=== PATIENT | male | born 1950 | race Caucasian/White ===

== ENCOUNTER 2016-04-30 09:48 | Day surgery (SDC) | payer MEDICARE, OTHER ==
[~2016-04-30 09:48] MED LIST: DIAZEPAM 5 MG TABLET PO PRN; OXYCODONE-ACETAMINOPHEN 5-325 MG TABLET PO PRN
[2016-04-30] MEDS ORDERED: LIDOCAINE 0.5% INJ-PF (5 MG/ML) 50 ML SDV ONE (11:00)
[2016-04-30] MEDS ORDERED: HEPARIN SOD (PORCINE) 5,000 UNIT/ML 1 ML SYRINGE ONE (11:28)
[2016-04-30] MEDS ORDERED: FENTANYL CITRATE INJ/PF 100 MCG/2 ML AMPUL ONE (11:28)
--- NOTE | 2016-04-30 13:15 | Operative Report ---
Operative Report DATE OF SURGERY: 04/30/16 PREOPERATIVE DIAGNOSIS: #1 malfunctioning arteriovenous fistula, left radial to cephalic. #2 end-stage renal disease on hemodialysis. #3 cirrhosis. POSTOPERATIVE DIAGNOSIS: #1 malfunctioning arteriovenous fistula, left radial to cephalic. #2 end-stage renal disease on hemodialysis. #3 cirrhosis. OPERATION: #1 needle access into arteriovenous fistula. #2 angioplasty. #3 angiogram and interpretation. SURGEON: MARIAELENA CAAL SERVICES REP: none ANESTHESIA: Moderate Sedation TISSUE REMOVED OR ALTERED: Not applicable. COMPLICATIONS: None ESTIMATED BLOOD LOSS: 2 mL. INTRAOPERATIVE FINDINGS: Upper well-founded left forearm radial to cephalic fistula. Somewhat soft in its cephalad portion, firm in the first 3 cm. This correlates with the angiographic finding. An area of stenosis is noted about a centimeter away from the arteriovenous anastomosis and generalized stenosis for the first 3 cm. This was addressed were successfully by angioplasty. There was modest increase in the diameter of the stenosed segment and the tight segment which is about 70% of the adjacent lumen was resolved. A waist was eliminated. In addition post angioplasty of the fistula was more appropriate. Firm suggesting that inflow was much better. PROCEDURE: PROCEDURE: After verifying the procedure and having obtained informed consent, the patient's left arm and forearm were prepared with Chlorhexidine and draped out with sterile linen. Local anesthesia infiltrated. Percutaneous access into the fistula ,[retrograde], obtained about [20 cm] from the arteriovenous anastomosis using a micro puncture needle followed by micro puncture wire and then a micro puncture catheter. This was done on ultrasound guidance using real-time access into the vein. Ultrasound was also used to size the vein. Angiogram demonstrated the aforementioned findings. Angioplasty was elected. A 0.035 Kalama wire was inserted, and over this, a 6 Japanese short introducer was placed, this was followed by a 5 angioplasty balloon . Angioplasty was now done at the distal radial artery just before the anastomosis and over the anastomotic and perianastomotic segment. This was done very carefully and up to 8 juliana sustained for 2 minutes. Angiogram demonstrated successful outcome. Completion angiogram demonstrated [satisfactory result]. The instrumentation was now withdrawn over pressure for 10 minutes. Dressings applied, procedure concluded. Exposure time: 0.3 minutes Radiation: 1 carol per centimeter squared Contrast: 25 mL of Isovue-M 300 low osmolality. DICTATING PHYSICIAN: MARIAELENA BRADEN M.D. cc: MARIAELENA BRADEN M.D. ([id number]) >>
--- NOTE | 2016-04-30 13:19 | PDOC H&P ---
General Chief Complaint: The patient is admitted for evaluation and angiogram of the arteriovenous fistula of the left forearm. Dialysis is noted decreased flow rate suggesting inflow stenosis. Angiogram and possible intervention is recommended. - Diagnosis (1) Hemodialysis AV fistula stenosis Is this a Current Diagnosis?: Yes (2) ESRD on hemodialysis Is this a Current Diagnosis?: Yes (3) Cirrhosis, alcoholic Is this a Current Diagnosis?: Yes (4) Hypertension Is this a Current Diagnosis?: Yes - Current Medications/Allergies Home Medications: Clonidine HCl [Catapres 0.2 mg Tablet] 0.2 mg PO BID 04/12/15 Megestrol Acetate [Megace] 400 mg PO DAILY 04/13/15 Bumetanide [Bumex 2 mg Tablet] 1 tab PO BID 06/12/15 Colchicine [Colchicine 0.6 mg Tablet] 0.2 mg PO PRN PRN 07/05/15 Ergocalciferol (Vitamin D2) [Vitamin D2] 1.25 mg PO ASDIR PRN 07/05/15 Linaclotide [Linzess] 290 mcg PO PRN PRN 07/05/15 Hydralazine HCl [Apresoline 50 mg Tablet] 50 mg PO QID 08/23/15 Isosorbide Mononitrate [Imdur 30 mg Tablet.er] 30 mg PO DAILY 08/23/15 Folic Acid/Vitamin B Comp W-C [Ina-Anthony Tablet] 1 tab PO DAILY 12/19/15 Hydromorphone HCl [Dilaudid] 4 mg PO PRN PRN 12/19/15 Naloxegol Oxalate [Movantik 25 mg Tablet] 25 mg PO DAILY 12/19/15 Allergies/Adverse Reactions: No Known Allergies Allergy (Verified 08/23/15 09:43) Past Medical History Cardiac Medical History: Reports: Coronary Artery Disease, Hyperlipidema, Hypertension - on meds Denies: Myocardial Infarction Pulmonary Medical History: Denies: Asthma, Bronchitis, Chronic Obstructive Pulmonary Disease (COPD), Pneumonia Neurological Medical History: Denies: Seizures Renal/ Medical History: Reports: End Stage Renal Disease Musculoskeltal Medical History: Reports: Arthritis - gout Psychiatric Medical History: Denies: Depression Hematology: Reports: Anemia Past Surgical History Past Surgical History: Reports: Appendectomy, Cholecystectomy, Orthopedic Surgery - B elbow, R wrist, Vascular Surgery - Perm catheter for dialysis Family History Family History: Reviewed & Not Pertinent Parental Family History Reviewed: No Children Family History Reviewed: No Sibling(s) Family History Reviewed.: No Social History Smoking Status: Current Every Day Smoker Frequency of Alcohol Use: None Hx Recreational Drug Use: No Drugs: None Hx Prescription Drug Abuse: No Physical Exam Vital Signs: Temp Pulse Resp BP Pulse Ox 99.2 F 88 16 147/69 H 96 04/30/16 10:40 04/30/16 10:40 04/30/16 10:40 04/30/16 10:40 04/30/16 10:40 Intake & Output 04/29/16 04/30/16 05/01/16 06:59 06:59 06:59 Weight 62 kg Additional comments: Constitutional: A well-developed well-nourished gentleman, thin built. No acute distress. Eyes: Mucous membranes pink and moist, sclerae anicteric, pupils react normally. Respiratory: No shortness of breath or wheezing. Breath sounds are normal and equal. Cardiac: Heart sounds normal, no murmurs, no increased JVP. Peripheral edema. Extremities: Upper extremities shows normal range of movement and pulses. The left forearm has cephalic to radial fistula which is relatively soft. Bruit normal. Soft to palpation. Psychiatric: judgment, memory, insight seem normal. Mood is normal, appropriate and pleasant. Impression/Plan Impression: #1 malfunctioning AV fistula left cephalic to radial. #2 end-stage renal disease on hemodialysis. #3 cirrhosis. #4 hypertension. Plan: The plan is to admit the patient for angiogram and possible angioplasty. The risks, benefits, expected outcome and alternatives F Palencia the patient and he wishes to proceed.
--- NOTE | 2016-04-30 13:22 | PDOC DISCHARGE SUMMARY ---
Discharge Summary (SDC) - Discharge Final Diagnosis: #1 malfunctioning AV fistula left cephalic to radial. #2 end-stage renal disease on hemodialysis. #3 cirrhosis. #4 hypertension. Date of Surgery: 04/30/16 Discharge Date: 04/30/16 Condition: Fair Treatment or Instructions: #1 discharge patient home after achieving ASU criteria. #2 continue medications per medication reconciliation sheet. #3 follow-up in office by appointment in about 1 month's call for appointment. #4 dressing to be left on of the removed and hemodialysis.. #5 continue scheduled hemodialysis. #6 may shower starting in 48 hours. Important to keep dressings clean and dry Respiratory Treatments at Home: Deep Breathing/Coughing Discharge Activity: Activity As Tolerated Home Care Assistance: None Needed Report the Following to Your Physician Immediately: Shortness of Breath, Nausea , Vomiting, Increase in Pain, Fever over 101 Degrees, Unusual Bleeding, Redness , Swelling, Warmth
[2016-04-30 14:27] VITALS: BP 123/69
== END 2016-04-30 13:15 | disposition home or self-care (01) ==
LOC: CCL 09:48
PROVIDERS: ATTEND Surgery
PROC: 057F3DZ Dilation of Left Cephalic Vein with Intraluminal Device, Percutaneous Approach (ICD-10-PCS; principal; 2016-04-30)
DX: T82.858A Stenosis of other vascular prosthetic devices, implants and grafts, initial encounter (principal); Y83.2 Surgical operation with anastomosis, bypass or graft as the cause of abnormal reaction of the patient, or of later complication, without mention of misadventure at the time of the procedure; I12.0 Hypertensive chronic kidney disease with stage 5 chronic kidney disease or end stage renal disease; N18.6 End stage renal disease; Z99.2 Dependence on renal dialysis; I25.10 Atherosclerotic heart disease of native coronary artery without angina pectoris; E78.5 Hyperlipidemia, unspecified; F17.210 Nicotine dependence, cigarettes, uncomplicated; K70.30 Alcoholic cirrhosis of liver without ascites; R00.1 Bradycardia, unspecified; I50.9 Heart failure, unspecified; Z79.899 Other long term (current) drug therapy
CPT/HCPCS: 36902; 36901; C1752; C1725; Q9967; C1769; J1644 ×2; A9270 ×2; J3010; J3490

== ENCOUNTER 2016-05-23 08:29 | Day surgery (SDC) | payer MEDICARE, OTHER ==
[~2016-05-23 08:29] MED LIST changes: +CEFAZOLIN 1 GM/D5W RTU 1 GM/50 ML RTUPB IV PRN; +CEFAZOLIN SODIUM 1 GM in DEXTROSE 5%-WATER 50 ML IV PRN
[2016-05-23 09:29] LABS: HEMATOCRIT 29.3 % (37.9-51.0); HEMOGLOBIN 9.8 g/dL (13.5-17.0); HGB HCT DIFFERENCE 0.1; MEAN CORPUSCULAR HEMOGLOBIN 28.2 pg (27.0-33.4); MEAN CORPUSCULAR HGB CONC 33.5 g/dL (32.0-36.0); MEAN CORPUSCULAR VOLUME 84 fl (80-97); RED BLOOD COUNT 3.47 10^6/uL (4.35-5.55); RED CELL DISTRIBUTION WIDTH 16.6 % (11.5-14.0); WHITE BLOOD COUNT 8.3 10^3/uL (4.0-10.5)
[2016-05-23 09:49] LABS: ANION GAP 12 (5-19); BLOOD UREA NITROGEN 31 mg/dL (7-20); CALCIUM 8.4 mg/dL (8.4-10.2); CARBON DIOXIDE 18 mmol/L (22-30); CHLORIDE 102 mmol/L (98-107); CREATININE RESULT 6.75 mg/dL (0.52-1.25); GLUCOSE 125 mg/dL (75-110); SODIUM 131.5 mmol/L (137-145)
[2016-05-23] MEDS ORDERED: LIDOCAINE 0.5% INJ-PF (5 MG/ML) 50 ML SDV ONE ×2 (10:22→12:36)
[2016-05-23] MEDS ORDERED: HEPARIN SODIUM,PORCINE/NS/PF 2,000 UNIT/1,000 ML RTUINJ IV ONE (10:22)
[2016-05-23] MEDS ORDERED: FENTANYL CITRATE INJ/PF 100 MCG/2 ML AMPUL ONE (10:31)
[2016-05-23] MEDS ORDERED: MIDAZOLAM 2 MG/2 ML INJ ONE (10:31)
[2016-05-23] MEDS ORDERED: CEFAZOLIN INJ 1 GM VIAL ONE (10:32)
[2016-05-23] MEDS ORDERED: BACITRACIN INJ 50,000 UNIT VIAL IR PRN (10:41)
[2016-05-23] MEDS ORDERED: HEPARIN SOD (PORCINE) 5,000 UNIT/ML 1 ML SYRINGE ONE (11:51)
--- NOTE | 2016-05-23 13:51 | PDOC DISCHARGE SUMMARY ---
Discharge Summary (SDC) - Discharge Final Diagnosis: #1 clotted arteriovenous fistula left radiocephalic. #2 end-stage renal disease on hemodialysis. #3 cirrhosis. #4 bradycardia. Date of Surgery: 05/23/16 Discharge Date: 05/23/16 Condition: Poor Treatment or Instructions: #1 discharge patient after achieving ASU criteria. #2 the patient is to continue his normal medication. No Dilaudid at present until the Percocet is used up. #3 dressings to be left in place until hemodialysis. #4 follow-up in office by appointment in about 1 week. Discharge Diet: As Tolerated Respiratory Treatments at Home: Deep Breathing/Coughing Report the Following to Your Physician Immediately: Unusual Bleeding
[2016-05-23] MEDS ORDERED: OXYCODONE-ACETAMINOPHEN 5-325 MG TABLET ONE (13:54)
--- NOTE | 2016-05-23 14:18 | Operative Report ---
Operative Report DATE OF SURGERY: 05/23/16 PREOPERATIVE DIAGNOSIS: #1 clotted arteriovenous fistula left radiocephalic. # 2 end-stage renal disease on hemodialysis. #3 cirrhosis. #4 bradycardia. POSTOPERATIVE DIAGNOSIS: #1 clotted arteriovenous fistula left radiocephalic.Post thrombectomy. #2 end-stage renal disease on hemodialysis. # 3 cirrhosis. #4 bradycardia. OPERATION: #1 ultrasound-guided needle access into the left forearm AV fistula. #2 second ultrasound-guided access into the arteriovenous fistula of left forearm. #3 digit thrombectomy. #4 angioplasty. #5 angiogram and interpretation. #6 ultrasound evaluation and real-time access in the right internal jugular vein. #7 insertion of permacatheter via real-time access in the right internal jugular vein. SURGEON: MARIAELENA CAAL MATERIAL HANDLER FLOORPERSON: none ANESTHESIA: Moderate Sedation TISSUE REMOVED OR ALTERED: Thrombus COMPLICATIONS: Equivocal success of fistula thrombectomy. ESTIMATED BLOOD LOSS: 10 mL. INTRAOPERATIVE FINDINGS: Of an initially clotted left forearm arteriovenous fistula. Thrombectomy was successful in restoring flow however the flow was somewhat sluggish particularly above the elbow. Diligent attempts at thrombectomy and of angioplasty improved the fistula as much as possible but they for inflow is just not been sitting for prolonged function. A right-sided perm catheter was inserted into the right internal jugular vein. Good position and function with easy egress of blood and ingress of heparinized solution. Contrast study showed some smooth flow of contrast through the right atrium, ventricle and pulmonary outflow tract. PROCEDURE: PROCEDURE: After verifying the procedure and having obtained informed consent, the patient's left arm was prepared with Chlorhexidine and draped out with sterile linen. Local anesthesia infiltrated. Percutaneous access into the fistula ,[ antegrade], obtained about [2 cm] from the arteriovenous anastomosis using a micro puncture needle followed by micro puncture wire and then a micro puncture catheter. A 0.035 Benkelman wire was inserted, and over this, a 6 Sinhala short introducer was placed. The Glidewire was gently manipulated cephalad and a second needle stick, retrograde was done from above the elbow down once. This was done on ultrasound guidance. An AngioJet catheter was now inserted in a antegrade fashion and thrombectomy conducted from the elbow down to the introducer. Completion angiograms showed a stenosis at about 15 cm. This was about 70% of the adjacent lumen and a half centimeter. This was followed by a [6-mm] angioplasty balloon . Angioplasty was serially done from the upper fistula down to the introducer. Inflating up to 10 atmospheres for a minute at a time.]. Completion angiogram demonstrated [satisfactory result]. The retrograde wire was now used to place Chele's second 6 Sinhala introducer which allowed introduction of a #4 embolectomy catheter. This was introduced gently into the radial artery and gently inflated and withdrawn. In this way and the thrombus was withdrawn into the fistula. This was greeted with a good pulse in the proximal 6 cm of the fistula. A 6 mm angioplasty balloon was now inserted and used to dilate the segment of fistula which had antegrade access. The system was not interrogated and a pulses noted throughout. Completion angiogram demonstrated contrast flow through the system although sluggish. Angioplasty was once again done in a retrograde fashion and the system reanalyze. It was slightly improved. The result was accepted. The instrumentation was now withdrawn over pressure for its.. Dressings applied, procedure concluded. Next a perm catheter was inserted. First the right and left internal jugular veins were evaluated on ultrasound. The right was selected. The skin was prepared with chlorhexidine and draped out with sterile linen. After the "" universal timeout, and it was verified that the patient did receive IV antibiotic the procedure commenced. A micropuncture needle was used to access the right internal jugular vein under real-time ultrasound guidance. This was followed by introduction of the micropuncture wire, micropuncture catheter which allowed insertion of a 0.035 guidewire with the tip placed in the upper inferior vena cava. A 23 cm permacatheter was now placed over the chest and an exit site ascertained. It was locally anesthetized as was the subcutaneous tissues to in the 2 incisions. This allowed placement of the catheter. Medially the catheter was now inserted using a peel-away sheath which had been placed over the guidewire. An angiogram was done which verify the position of the tip of the catheter in the right atrium. The findings as dictated. The neck incision was closed with 3-0 PDS to the subcutaneous tissues. 3-0 PDS was also used to anchor the catheter at the external site. A bio patch was applied to the site. Dressings applied and the procedure concluded. Exposure time:3.3 Radiation: 7 carol per centimeters squared Contrast: 30 mL of Isovue-M 300, low osmolality. DICTATING PHYSICIAN: MARIAELENA BRADEN M.D. cc: MARIAELENA BRADEN M.D. ([id number]) >>
[2016-05-23 14:48] VITALS: BP 141/75
== END 2016-05-23 14:40 | disposition home or self-care (01) ==
LOC: CCL 08:29
PROVIDERS: ATTEND Surgery
PROC: 05HM33Z Insertion of Infusion Device into Right Internal Jugular Vein, Percutaneous Approach (ICD-10-PCS; principal; 2016-05-23)
DX: T82.858A Stenosis of other vascular prosthetic devices, implants and grafts, initial encounter (principal); I12.0 Hypertensive chronic kidney disease with stage 5 chronic kidney disease or end stage renal disease; E10.22 Type 1 diabetes mellitus with diabetic chronic kidney disease; Y83.2 Surgical operation with anastomosis, bypass or graft as the cause of abnormal reaction of the patient, or of later complication, without mention of misadventure at the time of the procedure; N18.6 End stage renal disease; Z99.2 Dependence on renal dialysis; K74.60 Unspecified cirrhosis of liver; R00.1 Bradycardia, unspecified; D64.9 Anemia, unspecified; I50.9 Heart failure, unspecified; F17.210 Nicotine dependence, cigarettes, uncomplicated; Z79.899 Other long term (current) drug therapy
CPT/HCPCS: 36415; 85027; 80048; 36558; 76937; 77001; C1752 ×2; Q9967; J3490 ×2; J1644 ×2; J0690; A9270 ×2; J3010; J2250

== ENCOUNTER 2016-07-02 05:51 | Day surgery (SDC) | payer MEDICARE, OTHER ==
[2016-06-13 12:48] LABS: HEMATOCRIT 36.7 % (37.9-51.0); HGB HCT DIFFERENCE -0.7; MEAN CORPUSCULAR HEMOGLOBIN 27.8 pg (27.0-33.4); MEAN CORPUSCULAR HGB CONC 32.8 g/dL (32.0-36.0); MEAN CORPUSCULAR VOLUME 85 fl (80-97); RED BLOOD COUNT 4.34 10^6/uL (4.35-5.55); WHITE BLOOD COUNT 9.1 10^3/uL (4.0-10.5)
[2016-06-13 13:09] LABS: ANION GAP 14 (5-19); BLOOD UREA NITROGEN 10 mg/dL (7-20); CALCIUM 9.4 mg/dL (8.4-10.2); CARBON DIOXIDE 22 mmol/L (22-30); CHLORIDE 101 mmol/L (98-107); CREATININE RESULT 3.76 mg/dL (0.52-1.25); GLUCOSE 104 mg/dL (75-110); POTASSIUM 4.2 mmol/L (3.6-5.0); SODIUM 137.1 mmol/L (137-145)
--- NOTE | 2016-06-14 05:33 | EKG REPORT ---
SEVERITY:- ABNORMAL ECG - SINUS RHYTHM MULTIPLE VENTRICULAR PREMATURE COMPLEXES LOW VOLTAGE IN FRONTAL LEADS : Confirmed by: Sruthi Stovall MD 14-Jun-2016 05:32:17
[~2016-07-02 05:51] MED LIST changes: -CEFAZOLIN SODIUM 1 GM in DEXTROSE 5%-WATER 50 ML IV PRN; -DIAZEPAM 5 MG TABLET PO PRN; +LIDOCAINE 0.5% INJ-PF (5 MG/ML) 50 ML SDV SUBCUT PRN; +NORMAL SALINE 1000 ML (RENAL PATIENTS) IV PRN; -OXYCODONE-ACETAMINOPHEN 5-325 MG TABLET PO PRN
[2016-07-02] MEDS ORDERED: HEPARIN SOD (PORCINE) 1,000 UNIT/ML 10 ML VIAL ONE (06:21)
[2016-07-02] MEDS ORDERED: LIDOCAINE 0.5% INJ-PF (5 MG/ML) 50 ML SDV ONE (06:21)
[2016-07-02] MEDS ORDERED: BACITRACIN INJ 50,000 UNIT VIAL ONE (06:21)
[2016-07-02] MEDS ORDERED: BUPIVACAINE HCL 0.5 % INJ/PF 30 ML SDV ONE (06:21)
[2016-07-02] MEDS ORDERED: LIDOCAINE 1% INJ-PF (10 MG/ML) 30 ML SDV ONE (06:48)
[2016-07-02] MEDS ORDERED: FENTANYL CITRATE INJ/PF 100 MCG/2 ML AMPUL ONE (07:58)
[2016-07-02] MEDS ORDERED: KETAMINE HCL INJ 500 MG/10 ML VIAL ONE (07:58)
[2016-07-02] MEDS ORDERED: PROPOFOL INJ 200 MG/20 ML VIAL IV ONE (07:59)
[2016-07-02] MEDS ORDERED: MIDAZOLAM 2 MG/2 ML INJ ONE (07:59)
[2016-07-02] MEDS ORDERED: DEXMEDETOMIDINE INJ 80 MCG/20 ML VIAL IV ONE (07:59)
[2016-07-02] MEDS ORDERED: FENTANYL CITRATE INJ/PF 100 MCG/2 ML AMPUL IV PRN ×3 (09:06)
[2016-07-02] MEDS ORDERED: OXYCODONE-ACETAMINOPHEN 5-325 MG TABLET PO PRN ×2 (09:06)
[2016-07-02] MEDS ORDERED: PROMETHAZINE HCL INJ 25 MG/1 ML VIAL IV PRN ×2 (09:06)
[2016-07-02] MEDS ORDERED: MORPHINE SULFATE 10 MG/ML INJ IV PRN (09:06)
[2016-07-02] MEDS ORDERED: MEPERIDINE HCL/PF INJ 25 MG/1 ML DISP.SYRIN IV PRN (09:06)
[2016-07-02] MEDS ORDERED: DIPHENHYDRAMINE HCL 50 MG/ML VIAL IV PRN (09:06)
--- NOTE | 2016-07-02 09:43 | PDOC DISCHARGE SUMMARY ---
Discharge Summary (SDC) - Discharge Final Diagnosis: #1 end-stage renal disease on hemodialysis. #[address] #3 cirrhosis of the liver. #4 hypertension. Date of Surgery: 07/02/16 Discharge Date: 07/02/16 Condition: Fair Treatment or Instructions: #1 activities within moderation encouraged. #2 follow up in my office by appointment in about 1 week. Call for appointment. #3 the wounds covered clean and dry until office visit. #4 hold off on school/work until evaluation in office. #5 may shower in 48 hours, keep operated area as dry as possible. #6 discharge from ambulatory when ASU criteria met. #7 medications per medication reconciliation sheet. #8 Percocet by prescription.. Prescriptions: Oxycodone HCl/Acetaminophen [Percocet 5-325 mg Tablet] 1 tab PO ASDIR PRN #10 tablet PRN Reason: Discharge Diet: Other (Comments) - Renal Respiratory Treatments at Home: Deep Breathing/Coughing Discharge Activity: Activity As Tolerated Report the Following to Your Physician Immediately: Shortness of Breath, Unusual Bleeding
--- NOTE | 2016-07-02 09:48 | Operative Report ---
Operative Report DATE OF SURGERY: 07/02/16 PREOPERATIVE DIAGNOSIS: #1 end-stage renal disease on hemodialysis. #[address] #3 cirrhosis of the liver. #4 hypertension. POSTOPERATIVE DIAGNOSIS: #1 end-stage renal disease on hemodialysis. #[address] #3 cirrhosis of the liver. #4 hypertension. OPERATION: Insertion of first stage transposed basilic fistula in the left arm. SURGEON: MARIAELENA CAAL PHYSICIAN GYNECOLOGIST: RICKY BRIONES ANESTHESIA: LMAC TISSUE REMOVED OR ALTERED: Not applicable. COMPLICATIONS: None ESTIMATED BLOOD LOSS: 5 mL. INTRAOPERATIVE FINDINGS: Of a fairly robust although slightly thick-walled basilic vein, easily accommodate the noted today 4.5 mm coronary dilator. The accompanying artery was about the same size. A nice artery to vein anastomosis was constructed constructed. Doppler signals in the proximal and distal artery as well as in the fistula. Slurred and multiphasic in the proximal artery, more multiphasic with less slurring in the distal artery and continuous in the fistula. PROCEDURE: Operative Report PROCEDURE: After reviewing the procedure with the patient, he was taken to the operating room. The patient was sedated and the [left upper extremity] prepared with chlorhexidine and draped out with sterile linen. After the "" universal timeout", in which it was verified that the patient [received IV antibiotics] the procedure commenced. The sterilely sheathed ultrasound probe was used to evaluate the left upper venous and arterial systems, pertinent to the previously done vein mapping. Local anesthesia was infiltrated and a longitudinal incision made over the lower arm near the antecubital fossa. Dissection proceeded through the subcutaneous tissues down to the brachial vessels. The basilic vein was dissected out proximally and distally for about 4 cm. Likewise major branches. The brachial artery dissected out for a distance of about 1.5 cm. Rubber loops were placed on either end. The patient was given 2500 units of heparin intravenously. Coronary dilators were accepted [up to 4.5 mm]. The artery was controlled proximally and distally with rubber loops. An arteriotomy approximately [1.5 cm] in length was made, the artery was irrigated proximally and distally with heparinized solution. The transected vein was now spatulated , it was then anastomosed end to end to side into the brachial artery. This was done using a continuous suture of 6-0 Prolene. Controls of the fistula were now released and it was analyzed using a Doppler probe. Hemostasis was secured once optimal function was assured, the wound was irrigated with antibiotic containing solution and closed. The redundant vein was now transposed into the subcutaneous tissue laterally, to facilitate second stage. Closure was done using interrupted 3-0 PDS for the subcutaneous tissues. The skin was closed using a continuous subcutaneous suture of 4-0 Monocryl which was reinforced with Steri-Strips over benzoin. The presser first provided retraction, thus facilitating the operative view. Controlled bleeding. The presser first also followed the suturing, thus facilitating accurate suture placement. Sutured skin and applied dressings. DICTATING PHYSICIAN: MARIAELENA BRADEN M.D.
[2016-07-02 12:10] VITALS: BP 120/66
[2016-07-02] MEDS ORDERED: GLYCOPYRROLATE INJ 0.4 MG/2 ML VIAL ONE (14:10)
[2016-07-02] MEDS ORDERED: LIDOCAINE 2% INJ-PF (20 MG/ML) 10 ML AMPUL ONE (14:10)
[2016-07-02] MEDS ORDERED: ONDANSETRON HCL INJ/PF 4 MG/2 ML SDV ONE (14:10)
[2016-07-02] MEDS ORDERED: METOCLOPRAMIDE HCL INJ/PF 10 MG/2 ML SDV ONE (14:10)
== END 2016-07-02 11:35 | disposition home or self-care (01) ==
LOC: OROUT 05:51
PROVIDERS: ATTEND Surgery
PROC: 05SC0ZZ Reposition Left Basilic Vein, Open Approach (ICD-10-PCS; principal; 2016-07-02 08:00)
DX: T82.858A Stenosis of other vascular prosthetic devices, implants and grafts, initial encounter (principal); Y83.2 Surgical operation with anastomosis, bypass or graft as the cause of abnormal reaction of the patient, or of later complication, without mention of misadventure at the time of the procedure; I12.0 Hypertensive chronic kidney disease with stage 5 chronic kidney disease or end stage renal disease; E10.22 Type 1 diabetes mellitus with diabetic chronic kidney disease; N18.6 End stage renal disease; Z99.2 Dependence on renal dialysis; K74.60 Unspecified cirrhosis of liver; I50.9 Heart failure, unspecified; D64.9 Anemia, unspecified; R00.1 Bradycardia, unspecified; R01.1 Cardiac murmur, unspecified; F17.210 Nicotine dependence, cigarettes, uncomplicated; Z79.899 Other long term (current) drug therapy
CPT/HCPCS: 93005; 36415 ×2; 84132; 85027; 80048; 93010; 36819; J2250; J3490 ×6; J0690; J1644; J2765; J2405; J2704; 1844; J3010

== ENCOUNTER 2016-07-28 19:05 | Observation (INO) | payer MEDICARE, OTHER ==
--- NOTE | 2016-07-28 20:02 | ER Document Report ---
ED General - General Chief Complaint: General Weakness Stated Complaint: LETHARGIC Time seen by provider: 19:50 Notes: Patient is a 66-year-old male that comes emergency department for chief complaint of tiredness, weakness, daughter at bedside states she called about 5: 30 and he seemed to be slurring his speech over the phone, she states she came evaluated him and found he can barely stay awake and alert when he stood he shuffled his feet. Patient denies any focal numbness or weakness, denies fever , denies any current chest pain and headache. Past medical history of end- stage renal disease on dialysis, had dialysis on Friday and is due on Friday, liver cirrhosis, CHF, COPD with tobacco abuse. Patient recently had a decrease in his Bumex level by cardiology Dr. Garibay, he also sees nephrology Dr. Billy. TRAVEL OUTSIDE OF THE [place] IN LAST 30 DAYS: No - Related Data Allergies/Adverse Reactions: No Known Allergies Allergy (Verified 08/23/15 09:43) Past Medical History - General Information source: Patient, Relative - Social History Smoking Status: Current Every Day Smoker Chew tobacco use (# tins/day): - 45 Frequency of alcohol use: None Drug Abuse: None Family History: Reviewed & Not Pertinent - Past Medical History Cardiac Medical History: Reports: Hx Hypercholesterolemia, Hx Hypertension - on meds Denies: Hx Coronary Artery Disease, Hx Heart Attack Pulmonary Medical History: Denies: Hx Asthma, Hx Bronchitis, Hx COPD, Hx Pneumonia Neurological Medical History: Denies: Hx Cerebrovascular Accident, Hx Seizures Renal/ Medical History: Reports: Hx End Stage Renal Disease, Hx Hemodialysis, Hx Kidney Stones Musculoskeltal Medical History: Reports Hx Arthritis - gout Psychiatric Medical History: Denies: Hx Depression Past Surgical History: Reports: Hx Appendectomy, Hx Cholecystectomy, Hx Orthopedic Surgery - B elbow, R wrist, Hx Vascular Surgery - Perm catheter for dialysis - Immunizations Immunizations up to date: No Hx Diphtheria, Pertussis, Tetanus Vaccination: Yes Hx Pneumococcal Vaccination: 12/29/14 Review of Systems - Review of Systems Constitutional: See HPI EENT: No symptoms reported Cardiovascular: No symptoms reported Respiratory: No symptoms reported Gastrointestinal: No symptoms reported Genitourinary: No symptoms reported Male Genitourinary: No symptoms reported Musculoskeletal: No symptoms reported Skin: No symptoms reported Hematologic/Lymphatic: No symptoms reported Neurological/Psychological: See HPI Physical Exam - Vital signs Vitals: Resp BP Pulse Ox 16 114/61 96 07/28/16 19:16 07/28/16 19:16 07/28/16 19:16 Interpretation: Normal - General General appearance: Lethargic - HEENT Head: Normocephalic, Atraumatic Eyes: Normal Conjunctiva: Normal Extraocular movements intact: Yes Eyelashes: Normal Pupils: PERRL Mucous membranes: Normal Pharynx: Normal Neck: Normal - Respiratory Respiratory status: No respiratory distress Chest status: Nontender Breath sounds: Normal. No: Decreased air movement, Wheezing Chest palpation: Normal - Cardiovascular Rhythm: Regular. No: Tachycardia Heart sounds: Normal auscultation, S1 appreciated, S2 appreciated Murmur: No - Abdominal Inspection: Normal Distension: No distension Bowel sounds: Normal Tenderness: Nontender. No: Tender Organomegaly: No organomegaly - Back Back: Normal, Nontender. No: Tender - Extremities General upper extremity: Normal inspection, Nontender, Normal color, Normal ROM , Normal temperature General lower extremity: Normal inspection, Nontender, Normal color, Normal ROM , Normal temperature, Normal weight bearing. No: Carie's sign - Neurological Neuro grossly intact: Yes Cognition: Normal Orientation: AAOx4 Samantha Coma Scale Eye Opening: Spontaneous Samantha Coma Scale Verbal: Oriented [place] Coma Scale Motor: Obeys Commands Samantha Coma Scale Total: 15 Speech: Normal Cranial nerves: Normal Cerebellar coordination: Normal Motor strength normal: LUE, RUE, LLE, RLE Additional motor exam normals: Equal professional nurse Sensory: Normal - Psychological Associated symptoms: Normal affect, Normal mood - Skin Skin Temperature: Warm Skin Moisture: Dry Skin Color: Normal Course - Re-evaluation Re-evalutation: Patient is a 66-year-old male who actually appears older than his stated age who presents for chief complaint of weakness and acting differently than usual per daughter. Patient states he can barely stay awake but he denies any complaints. Patient does appear very tired but he does cooperate with a normal neurological exam. Patient has some minimal bilateral lower extremity edema but has no other pertinent physical exam findings or signs of distress. Vital signs unremarkable. Workup is unremarkable other than mild leukocytosis with elevation of monocytes , no evidence of bacterial infection, chest x-ray clear, urinalysis unremarkable , laboratory workup at baseline. Patient able to stand with assistance but is somewhat unsteady, he does continue to sleep and is drowsy. Medications include Dilaudid at home. Family members concerned about patient living by himself and going home while being drowsy and unsteady on his feet. Discussed with Dr. Painter, she does not recommend that Dr. sen will be able to admit the patient because patient has no criteria for admission to the hospital. I discussed with family members, agreement was made that patient will be monitored and reassessed in the emergency department tonight, in the morning he will be reassessed for potential admission to the hospital versus transport to his dialysis this morning. Patient's morning medications ordered, food ordered. Patient reassessed, still remains drowsy but has no complaints. 07/29/16 07:15 Patient is more alert now, he is more conversational, he states that he actually feels pretty good. I asked patient to perform getting up, standing, walking, and getting back to bed by herself. Patient was able to perform this, he walked over to a urinal, urinated. Standing, walked back to the bed. Vital signs remain unremarkable. Consulted Dr. Painter again, patient still does not meet admission criteria. client manager large law consult will be placed. Recommended reduce Dilaudid use until he is back to normal. Patient will be transported to dialysis which he is due for at 11 at [facility]. 07/29/16 08:[address] Saenz, family still uncomfortable with patient going home, he evaluated patient at bedside, also uncomfortable. Going home with very tired behavior, patient suddenly awoke and started stating bizarre things such as he didn't have enough urine and they are coming for him. Recommends admission for acute metabolic encephalopathy and unsteady gait. - Vital Signs Vital signs: Temp Pulse Resp BP Pulse Ox 98.9 F 68 12 122/93 H 99 07/29/16 06:15 07/29/16 06:15 07/29/16 06:15 07/29/16 06:15 07/29/16 06:15 - Laboratory Result Diagrams: 07/28/16 20:15 07/28/16 20:15 Laboratory results interpreted by me: 07/28/16 07/28/16 07/28/16 20:15 20:15 23:14 WBC 11.5 H RBC 3.32 L Hgb 9.5 L Hct 29.0 L RDW 15.3 H Monocytes % 16.2 H Absolute Monocytes 1.9 H BUN 26 H Creatinine 4.12 H Est GFR ( Amer) 18 L Est GFR (Non-Af Amer) 15 L Glucose 122 H Calcium 8.0 L Direct Bilirubin 0.6 H Total Protein 5.1 L Albumin 2.3 L Urine Protein 100 H Discharge - Discharge Clinical Impression: Weakness, Acute metabolic encephalopathy Condition: Stable Disposition: ADMITTED INPATIENT Unit Admitted: Telemetry
[2016-07-28 20:26] LABS: ABSOLUTE BASOPHILS # (AUTO) 0.1 10^3/uL (0.0-0.2); ABSOLUTE EOSINOPHILS # (AUTO) 0.4 10^3/uL (0.0-0.6); ABSOLUTE MONOCYTES (AUTO) 1.9 10^3/uL (0.1-1.4); ABSOLUTE NEUT (AUTO) 7.1 10^3/uL (1.7-8.2); BASOPHILS % (AUTO) 0.7 % (0-2); EOSINOPHILS % (AUTO) 3.6 % (0-6); HEMOGLOBIN 9.5 g/dL (13.5-17.0); HGB HCT DIFFERENCE -0.5; LYMPHOCYTES % (AUTO) 17.7 % (13-45); MEAN CORPUSCULAR HEMOGLOBIN 28.6 pg (27.0-33.4); MEAN CORPUSCULAR HGB CONC 32.9 g/dL (32.0-36.0); MEAN CORPUSCULAR VOLUME 87 fl (80-97); MONOCYTES % (AUTO) 16.2 % (3-13); RED BLOOD COUNT 3.32 10^6/uL (4.35-5.55); RED CELL DISTRIBUTION WIDTH 15.3 % (11.5-14.0); SEGMENTED NEUTROPHILS % (AUTO) 61.8 % (42-78); WHITE BLOOD COUNT 11.5 10^3/uL (4.0-10.5)
[2016-07-28 20:42] LABS: ALANINE AMINOTRANSFERASE 27 U/L (21-72); ALBUMIN 2.3 g/dL (3.5-5.0); ALKALINE PHOSPHATASE 75 U/L (38-126); ANION GAP 13 (5-19); ASPARTATE AMINO TRANSFERASE 29 U/L (17-59); BILIRUBIN,DIRECT 0.6 mg/dL (0.0-0.4); BILIRUBIN,TOTAL 0.7 mg/dL (0.2-1.3); BLOOD UREA NITROGEN 26 mg/dL (7-20); CARBON DIOXIDE 23 mmol/L (22-30); CHLORIDE 103 mmol/L (98-107); CREATINE KINASE 83 U/L (55-170); CREATININE RESULT 4.12 mg/dL (0.52-1.25); GLUCOSE 122 mg/dL (75-110); POTASSIUM 3.9 mmol/L (3.6-5.0); TOTAL PROTEIN 5.1 g/dL (6.3-8.2)
[2016-07-28 20:53] LABS: CREATINE KINASE MB 1.76 ng/mL (<4.55)
[2016-07-28 20:57] LABS: TROPONIN I < 0.012 ng/mL
--- NOTE | 2016-07-28 22:47 | EKG REPORT ---
SEVERITY:- BORDERLINE ECG - UNKNOWN RHYTHM, IRREGULAR RATE 51-121 LOW VOLTAGE IN FRONTAL LEADS BORDERLINE PROLONGED QT INTERVAL APCs : Confirmed by: Jory Ulloa 28-Jul-2016 22:47:03
[2016-07-28 23:47] LABS: APPEARANCE,URINE CLEAR; BILIRUBIN,URINE NEGATIVE (NEGATIVE); GLUCOSE, URINE NEGATIVE (NEGATIVE); KETONES,URINE NEGATIVE (NEGATIVE); LEUKOCYTE ESTERASE,URINE NEGATIVE (NEGATIVE); NITRITE,URINE NEGATIVE (NEGATIVE); PROTEIN,URINE 100 mg/dL (NEGATIVE); URINE SPECIFIC GRAVITY 1.008; UROBILINOGEN,URINE NEGATIVE mg/dL (<2.0)
[2016-07-29] MEDS ORDERED: FAMOTIDINE 20 MG TABLET PO ONE (07:33)
[2016-07-29] MEDS ORDERED: AMLODIPINE BESYLATE 10 MG TABLET PO ONE (07:33)
[2016-07-29] MEDS ORDERED: ASPIRIN 81 MG TABLET, CHEWABLE PO ONE (07:33)
[2016-07-29] MEDS ORDERED: HYDROMORPHONE HCL 2 MG TABLET PO PRN (12:02)
[2016-07-29] MEDS ORDERED: COLCHICINE 0.6 MG TABLET PO PRN ×2 (12:02→13:18)
[2016-07-29] MEDS ORDERED: MEGESTROL ACETATE SUSP 400 MG/10 ML UDCUP PO ONE (13:00)
[2016-07-29] MEDS ORDERED: FOLIC ACID/VITAMIN B COMP W-C CAPSULE PO ONE (13:00)
[2016-07-29] MEDS ORDERED: CLONIDINE HCL 0.2 MG TABLET PO ONE (13:00)
--- NOTE | 2016-07-29 13:51 | PDOC H&P ---
History of Present Illness Admission Date/PCP: 07/29/16 11:58 DR THORNE History of Present Illness: DANIEL MAGUIRE JR is a 66 year old male that comes emergency department for chief complaint of tiredness, weakness, daughter at bedside states she called about 5:30 and he seemed to be slurring his speech over the phone, she states she came evaluated him and found he can barely stay awake and alert when he stood he shuffled his feet. Patient denies any focal numbness or weakness, denies fever, denies any current chest pain and headache. Past medical history of end-stage renal disease on dialysis, had dialysis on Friday and is due on Friday, liver cirrhosis, CHF, COPD with tobacco abuse. Patient recently had a decrease in his Bumex level by cardiology Dr. Garibay, he also sees nephrology Dr. Thorne. Upon evaluation in the ED the patient was found somewhat lethargic arousable Alert answering questions appropriately And stating that his extremely weak He was scheduled for dialysis today Patient was admitted under hospitalist service for observation; he will undergo dialysis as scheduled Physical therapy evaluation was obtained and further monitoring Past Medical History Cardiac Medical History: Reports: Hyperlipidema, Hypertension - on meds Denies: Coronary Artery Disease, Myocardial Infarction Pulmonary Medical History: Denies: Asthma, Bronchitis, Chronic Obstructive Pulmonary Disease (COPD), Pneumonia Neurological Medical History: Denies: Seizures Renal/ Medical History: Reports: End Stage Renal Disease Musculoskeltal Medical History: Reports: Arthritis - gout Psychiatric Medical History: Denies: Depression Hematology: Denies: Anemia Past Surgical History Past Surgical History: Reports: Appendectomy, Cholecystectomy, Orthopedic Surgery - B elbow, R wrist, Vascular Surgery - Perm catheter for dialysis Social History Smoking Status: Current Every Day Smoker Frequency of Alcohol Use: None Hx Recreational Drug Use: No Drugs: None Hx Prescription Drug Abuse: No - Advance Directive Resuscitation Status: Full Code Family History Family History: Reviewed & Not Pertinent Parental Family History Reviewed: Yes Children Family History Reviewed: Yes Sibling(s) Family History Reviewed.: Yes Medication/Allergy Home Medications: Amlodipine Besylate [Norvasc 10 mg Tablet] 10 mg PO SUTUTHSA 07/29/16 Aspirin [Aspirin EC] 81 mg PO DAILY 07/29/16 Bumetanide [Bumex 2 mg Tablet] 2 mg PO SUTUTHSA 07/29/16 Clonidine HCl [Catapres 0.2 mg Tablet] 0.2 mg PO MOWEFR 07/29/16 Clonidine HCl [Catapres 0.2 mg Tablet] 0.4 mg PO SUTUTHSA 07/29/16 Colchicine [Colchicine 0.6 mg Tablet] 0.6 mg PO DAILYP PRN 07/29/16 Ergocalciferol (Vitamin D2) [Vitamin D2] 1.25 mg PO FR 07/29/16 Hydromorphone HCl [Dilaudid 2 mg Tablet] 2 mg PO Q6HP PRN 07/29/16 Isosorbide Mononitrate [Imdur 30 mg Tablet.er] 30 mg PO SUTUTHSA 07/29/16 Megestrol Acetate [Megace] 10 ml PO DAILY 07/29/16 Ranitidine HCl [Zantac 150 mg Tablet] 150 mg PO BID 07/29/16 Vit B Cmplx 3/FA/Vit C/Biotin [Ina-Anthony Rx Tablet] 1 tab PO DAILY 07/29/16 Allergies/Adverse Reactions: No Known Allergies Allergy (Verified 08/23/15 09:43) Review of Systems Constitutional: PRESENT: as per HPI, weakness. ABSENT: fever(s), headache(s), weight gain, weight loss Eyes: ABSENT: visual disturbances Ears: ABSENT: hearing changes Cardiovascular: ABSENT: chest pain, dyspnea on exertion, edema, orthropnea, palpitations Respiratory: ABSENT: cough, hemoptysis Gastrointestinal: ABSENT: abdominal pain, constipation, diarrhea, hematemesis, hematochezia, nausea, vomiting Genitourinary: ABSENT: dysuria, hematuria Musculoskeletal: PRESENT: muscle weakness - Unable to ambulate, other. ABSENT: joint swelling Integumentary: ABSENT: rash, wounds Neurological: ABSENT: abnormal gait, abnormal speech, confusion, dizziness, focal weakness, syncope Psychiatric: ABSENT: anxiety, depression, homidical ideation, suicidal ideation Endocrine: ABSENT: cold intolerance, heat intolerance, polydipsia, polyuria Hematologic/Lymphatic: ABSENT: easy bleeding, easy bruising Physical Exam Vital Signs: Temp Pulse Resp BP Pulse Ox 98.9 F 68 17 120/48 L 98 07/29/16 06:15 07/29/16 06:15 07/29/16 12:30 07/29/16 12:01 07/29/16 12:30 General appearance: PRESENT: no acute distress, thin Head exam: PRESENT: atraumatic, normocephalic Eye exam: PRESENT: conjunctiva pink, EOMI, PERRLA. ABSENT: scleral icterus Ear exam: PRESENT: normal external ear exam Mouth exam: PRESENT: moist, tongue midline Neck exam: ABSENT: carotid bruit, JVD, lymphadenopathy, thyromegaly Respiratory exam: PRESENT: clear to auscultation nan. ABSENT: rales, rhonchi, wheezes Cardiovascular exam: PRESENT: RRR. ABSENT: diastolic murmur, rubs, systolic murmur Pulses: PRESENT: normal dorsalis pedis pul Vascular exam: PRESENT: normal capillary refill GI/Abdominal exam: PRESENT: normal bowel sounds, soft. ABSENT: distended, guarding, mass, organolmegaly, rebound, tenderness Rectal exam: PRESENT: deferred Extremities exam: PRESENT: full ROM. ABSENT: calf tenderness, clubbing, pedal edema Neurological exam: PRESENT: awake, CN II-XII grossly intact. ABSENT: motor sensory deficit Psychiatric exam: PRESENT: appropriate affect Skin exam: PRESENT: dry, intact, warm. ABSENT: cyanosis, rash Results Laboratory Results: 07/28/16 20:15 07/28/16 20:15 MCV 87 fl (80-97) 07/28/16 20:15 MCH 28.6 pg (27.0-33.4) 07/28/16 20:15 MCHC 32.9 g/dL (32.0-36.0) 07/28/16 20:15 RDW 15.3 % (11.5-14.0) H 07/28/16 20:15 Seg Neutrophils % 61.8 % (42-78) 07/28/16 20:15 Lymphocytes % 17.7 % (13-45) 07/28/16 20:15 Monocytes % 16.2 % (3-13) H 07/28/16 20:15 Eosinophils % 3.6 % (0-6) 07/28/16 20:15 Basophils % 0.7 % (0-2) 07/28/16 20:15 Absolute Neutrophils 7.1 10^3/uL (1.7-8.2) 07/28/16 20:15 Absolute Lymphocytes 2.0 10^3/uL (0.5-4.7) 07/28/16 20:15 Absolute Monocytes 1.9 10^3/uL (0.1-1.4) H 07/28/16 20:15 Absolute Eosinophils 0.4 10^3/uL (0.0-0.6) 07/28/16 20:15 Absolute Basophils 0.1 10^3/uL (0.0-0.2) 07/28/16 20:15 Chloride 103 mmol/L (98-107) 07/28/16 20:15 Carbon Dioxide 23 mmol/L (22-30) 07/28/16 20:15 Anion Gap 13 (5-19) 07/28/16 20:15 Est GFR ( Amer) 18 (>60) L 07/28/16 20:15 Est GFR (Non-Af Amer) 15 (>60) L 07/28/16 20:15 Glucose 122 mg/dL (75-110) H 07/28/16 20:15 Calcium 8.0 mg/dL (8.4-10.2) L 07/28/16 20:15 Total Bilirubin 0.7 mg/dL (0.2-1.3) 07/28/16 20:15 AST 29 U/L (17-59) 07/28/16 20:15 ALT 27 U/L (21-72) 07/28/16 20:15 Alkaline Phosphatase 75 U/L (38-126) 07/28/16 20:15 Ammonia 13.3 umol/L (9-33) 07/28/16 20:15 Total Protein 5.1 g/dL (6.3-8.2) L 07/28/16 20:15 Albumin 2.3 g/dL (3.5-5.0) L 07/28/16 20:15 Urine Color YELLOW 07/28/16 23:14 Urine Appearance CLEAR 07/28/16 23:14 Urine pH 9.0 (5.0-9.0) 07/28/16 23:14 Ur Specific [facility] 1.008 07/28/16 23:14 Urine Protein 100 mg/dL (NEGATIVE) H 07/28/16 23:14 Urine Glucose (UA) NEGATIVE mg/dL (NEGATIVE) 07/28/16 23:14 Urine Ketones NEGATIVE mg/dL (NEGATIVE) 07/28/16 23:14 Urine Blood NEGATIVE (NEGATIVE) 07/28/16 23:14 Urine Nitrite NEGATIVE (NEGATIVE) 07/28/16 23:14 Ur Leukocyte Esterase NEGATIVE (NEGATIVE) 07/28/16 23:14 Urine WBC (Auto) 2 /HPF 07/28/16 23:14 Urine RBC (Auto) 1 /HPF 07/28/16 23:14 07/28/16 07/28/16 20:15 20:15 Creatine Kinase 83 CK-MB (CK-2) 1.76 Troponin I < 0.012 EKG Comments: UNKNOWN RHYTHM, IRREGULAR RATE 51-121 [LVOLF] . LOW VOLTAGE IN FRONTAL LEADS [LQTB] . BORDERLINE PROLONGED QT INTERVAL - STMT - * APCs [id number] ABRAHAM MAGUIREWIN 28-Jul-2016 20:23:30 : 1950 66 Years Male Race: White Dept: ED Room: ED9 Oper: FLYMAN HR 72 MO 204 QRSD 78 QT 436 QTc 478 -- AXIS -- P 30 QRS 19 T 8 Requested By: MILDRED BRADLEY Order Impressions: Chest X-Ray 07/28/16 19:58 IMPRESSION: NO ACUTE RADIOGRAPHIC FINDING IN THE CHEST. Head CT 07/28/16 19:58 IMPRESSION: CHRONIC CHANGES OF ATROPHY AND MICROVASCULAR ISCHEMIA. NO ACUTE PROCESS. Assessment & Plan - Diagnosis (1) Unable to ambulate Is this a current diagnosis for this admission?: Yes (2) Weakness Is this a current diagnosis for this admission?: Yes (3) Chronic kidney disease Qualifiers: Chronic kidney disease stage: unspecified stage Qualified Code(s): N18.9 - Chronic kidney disease, unspecified Is this a current diagnosis for this admission?: Yes - Time Time Spent with patient: Patient will undergo dialysis today He would be evaluated by physical therapy ; we will continue to monitor We will obtain serial EKG and troponins to exclude an acute coronary syndrome Patient will remain in the telemetry unit overnight for observation Time Spent: 50 to 70 Minutes
[2016-07-29] MEDS: HEPARIN SOD (PORCINE) 5,000 UNIT/ML 1 ML SYRINGE SUBCUT SCH ×2 (14:14→22:23)
[2016-07-29] MEDS ORDERED: EPOETIN ALFA 10,000 UNIT in SYRINGE, DISPOSABLE, 1 EACH IV PRN (16:29)
[2016-07-29] MEDS: ALBUMIN HUMAN 50 ML IV SCH ×2 (16:43→20:15)
[2016-07-29] MEDS ORDERED: (PENDING PHARMACY ID) (Ranitidine Hcl [Zantac 150 Mg Tablet] 150 MG) PO SCH (18:00)
[2016-07-29] MEDS ORDERED: HEPARIN SOD (PORCINE) 1,000 UNIT/ML 10 ML VIAL IV PRN (18:01)
--- NOTE | 2016-07-29 19:43 | PDOC CONSULTATION ---
Consultation Consult Date: 07/29/16 Attending physician:: ANEUDY MENDEZ Consult reason:: I was asked by Dr. Saenz and Dr. Mendez to see the patient for supervision of dialysis while here in the hospital. History of Present Illness Admission Date/PCP: 07/29/16 11:58 History of Present Illness: DANIEL MAGUIRE JR is a 66 year old male that comes emergency department for chief complaint of tiredness, weakness, daughter at bedside states she called about 5:30 and he seemed to be slurring his speech over the phone, she states she came evaluated him and found he can barely stay awake and alert when he stood he shuffled his feet. Patient denies any focal numbness or weakness, denies fever, denies any current chest pain and headache. Patient is known to me with history of end-stage renal disease on dialysis, had dialysis on Friday and is due on Friday, liver cirrhosis, CHF, COPD with tobacco abuse. I decrease in his Bumex level to just 2 mg daily from twice a day on nondialysis days. Upon talking to the patient while he is on dialysis this evening he related that he felt weak starting yesterday. He denies falling. He said that he feels better now while on dialysis. He denied falling nor being lightheaded. He also denies any chest pain, shortness of breath, nausea, vomiting, diarrhea, nor fever. So far he is hemodynamically stable and tolerating dialysis well without any problems. Past Medical History Cardiac Medical History: Reports: CHF-Diastolic, Hyperlipidemia, Hypertension- primary, Pulmonary Hypertension Renal/ Medical History: Reports: End Stage Renal Disease, Nephrolithiasis, Proteinuria, Renal Osteodystropy GI Medical History: Reports: Cirrhosis, Gastroesophageal Reflux Disease Musculoskeltal Medical History: Reports: Arthritis, Gout, Other - Lumbar disc herniation causing chronic low back pain on chronic pain medication management pain management service. Psychiatric Medical History: Reports: General Anxiety Disorder Hematology Medical History: Reports Anemia of Chronic Kidney Disease, Reports Iron Deficiency Anemia Past Surgical History Past Surgical History: Reports: Appendectomy, Cholecystectomy, Cystostomy - With insertion of ureteral stent, subsequently removed., Dialysis Access Surgery AVF, Herniorrhaphy, Orthopedic Surgery - B elbow, R wrist, Vascular Surgery - Perm catheter for dialysis, Other - Cataract extraction Social History Information Source: Patient, DrPranay Office Occupation: He is retired. 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 Lives with: Alone Smoking Status: Current Every Day Smoker Frequency of Alcohol Use: None Hx Recreational Drug Use: No Drugs: None Hx Prescription Drug Abuse: No - Advance Directive Resuscitation Status: Do Not Resuscitate Family History Family History: Malignancy - Breast cancer mother, Other - Cirrhosis in his father Parental Family History Reviewed: Yes Children Family History Reviewed: Yes Sibling(s) Family History Reviewed.: Unknown Medication/Allergy Home Medications: Amlodipine Besylate [Norvasc 10 mg Tablet] 10 mg PO SUTUTHSA 07/29/16 Aspirin [Aspirin EC] 81 mg PO DAILY 07/29/16 Bumetanide [Bumex 2 mg Tablet] 2 mg PO SUTUTHSA 07/29/16 Clonidine HCl [Catapres 0.2 mg Tablet] 0.2 mg PO MOWEFR 07/29/16 Clonidine HCl [Catapres 0.2 mg Tablet] 0.4 mg PO SUTUTHSA 07/29/16 Colchicine [Colchicine 0.6 mg Tablet] 0.6 mg PO DAILYP PRN 07/29/16 Ergocalciferol (Vitamin D2) [Vitamin D2] 1.25 mg PO FR 07/29/16 Hydromorphone HCl [Dilaudid 2 mg Tablet] 2 mg PO Q6HP PRN 07/29/16 Isosorbide Mononitrate [Imdur 30 mg Tablet.er] 30 mg PO SUTUTHSA 07/29/16 Megestrol Acetate [Megace] 10 ml PO DAILY 07/29/16 Ranitidine HCl [Zantac 150 mg Tablet] 150 mg PO BID 07/29/16 Vit B Cmplx 3/FA/Vit C/Biotin [Ina-Anthony Rx Tablet] 1 tab PO DAILY 07/29/16 Allergies/Adverse Reactions: No Known Allergies Allergy (Verified 08/23/15 09:43) Review of Systems All systems: reviewed and no additional remarkable complaints except as stated Review of Systems: Constitutional: ABSENT: chills, fatigue, fever(s), headache(s), weight gain, weight loss; generalized weakness Eyes: ABSENT: visual disturbances Ears: ABSENT: hearing changes Cardiovascular: ABSENT: chest pain, dyspnea on exertion, orthropnea, palpitations, positive lower extremity edema Respiratory: ABSENT: cough, dyspnea, hemoptysis Gastrointestinal: ABSENT: abdominal pain, constipation, diarrhea, hematemesis, hematochezia, nausea, vomiting Genitourinary: ABSENT: dysuria, hematuria Musculoskeletal: ABSENT: joint swelling Integumentary: ABSENT: rash, wounds Neurological: ABSENT: abnormal gait, abnormal speech, confusion, dizziness, focal weakness, numbness, syncope; admits some lightheadedness earlier today Psychiatric: ABSENT: depression, admits anxiety Endocrine: ABSENT: cold intolerance, heat intolerance, polydipsia, polyuria Hematologic/Lymphatic: ABSENT: easy bleeding, easy bruising, lymphadenopathy Physical Exam Vital Signs: Temp Pulse Resp BP Pulse Ox 98.2 F 65 17 120/57 L 100 07/29/16 13:38 07/29/16 15:30 07/29/16 13:38 07/29/16 13:38 07/29/16 13:38 Vital signs currently on dialysis: Blood pressure 128/60, heart rate of 72, blood flow rate of 400 mL per minute, dialysate flow rate of 600 mL per minute. Exam: General appearance: no acute distress, cooperative, well-developed, well- nourished, somnolent but able to wake up and communicate when prompted Head exam: PRESENT: atraumatic, normocephalic Eye exam: PRESENT: Conjunctiva pale, EOMI, PERRLA. ABSENT: conjunctival injection, scleral icterus Mouth exam: PRESENT: moist, neck supple, tongue midline Neck exam: PRESENT: full ROM. ABSENT: carotid bruit, JVD, lymphadenopathy, thyromegaly Respiratory exam: PRESENT: Diminished to auscultation bilaterally. ABSENT: rales, rhonchi, stridor, wheezes Cardiovascular exam: PRESENT: RRR, +S1, +S2. ABSENT: systolic murmur Pulses: PRESENT: normal radial pulses, normal dorsalis pedis pulses GI/Abdominal exam: PRESENT: normal bowel sounds, soft. ABSENT: guarding, mass, tenderness Rectal exam: deferred Extremities exam: PRESENT: full ROM. Grade 1 bilateral pitting edema ABSENT: calf tenderness Musculoskeletal: PRESENT: full ROM. ABSENT: deformity Neurological exam: PRESENT: Sleeping but arousable, Oriented to person, Oriented to place, Oriented to time, reflexes normal, CN II-XII grossly intact. ABSENT: motor sensory deficit Psychiatric exam: PRESENT: appropriate affect, normal mood. ABSENT: homicidal ideation, suicidal ideation Skin exam: PRESENT: intact, dry, warm. ABSENT: rash Results Laboratory Results: 07/29/16 07/29/16 12:55 18:18 Troponin I < 0.012 0.013 Impressions: Chest X-Ray 07/28/16 19:58 IMPRESSION: NO ACUTE RADIOGRAPHIC FINDING IN THE CHEST. Head CT 07/28/16 19:58 IMPRESSION: CHRONIC CHANGES OF ATROPHY AND MICROVASCULAR ISCHEMIA. NO ACUTE PROCESS. Assessment & Plan - Diagnosis (1) ESRD on hemodialysis Is this a current diagnosis for this admission?: YesPlan: We are doing dialysis today for 2 hours and 45 minutes, using the patient's PermCath, with 3 potassium bath, blood flow rate of 400 mL per minute, dialysate flow rate of 600 mL per minute, ultrafiltration 1 L, no heparin and Procrit with 10,000 units during dialysis intravenously. Patient is being monitored closely. Patient is tolerating procedure well. (2) Anemia in chronic kidney disease (CKD) Is this a current diagnosis for this admission?: YesPlan: Procrit given during dialysis today. (3) Hypoalbuminemia Is this a current diagnosis for this admission?: YesPlan: I gave him 25 g of IV albumin during dialysis today. (4) Physical deconditioning Is this a current diagnosis for this admission?: YesPlan: I recommended patient gets physical therapy or some kind of rehabilitation. Patient said he will think about it and tells me that he is feeling fine now. (5) Unable to ambulate Is this a current diagnosis for this admission?: Yes (6) Weakness Is this a current diagnosis for this admission?: Yes - Notes Notes: Thank you very much for allowing me to participate in the care of this patient. I will follow the patient while here in hospital. From nephrology standpoint he can be discharged home with possible physical therapy as an outpatient as deemed necessary. - Time Time Spent: 50 to 70 Minutes
[2016-07-29] MEDS ORDERED: NICOTINE 14 MG/24 HR PATCH.TD24 TD PRN (21:07)
[2016-07-29] MEDS: FAMOTIDINE 20 MG TABLET PO SCH (22:24)
[2016-07-30] MEDS: HEPARIN SOD (PORCINE) 5,000 UNIT/ML 1 ML SYRINGE SUBCUT SCH (05:19)
[2016-07-30 07:30] LABS: THYROID STIMULATING HORMONE 0.56 uIU/mL (0.47-4.68)
--- NOTE | 2016-07-30 07:50 | EKG REPORT ---
SEVERITY:- ABNORMAL ECG - SINUS RHYTHM LOW VOLTAGE IN FRONTAL LEADS CONSIDER ANTEROSEPTAL INFARCT : Confirmed by: John Paul Avalos MD 30-Jul-2016 07:49:34
[2016-07-30] MEDS: FAMOTIDINE 20 MG TABLET PO SCH (09:26)
[2016-07-30] MEDS ORDERED: ASPIRIN 81 MG TABLET, ENT COATED PO SCH (10:00)
[2016-07-30] MEDS ORDERED: BUMETANIDE 1 MG TABLET PO SCH (10:00)
[2016-07-30] MEDS ORDERED: CLONIDINE HCL 0.2 MG TABLET PO SCH ×2 (10:00)
[2016-07-30] MEDS ORDERED: ISOSORBIDE MONONITRATE 30 MG TAB.ER.24H PO SCH (10:00)
[2016-07-30] MEDS ORDERED: (PENDING PHARMACY ID) (Vit B Cmplx 3/Fa/Vit C/Biotin [Rena-Vite Rx Tablet] 1 TAB) PO SCH (10:00)
[2016-07-30] MEDS ORDERED: FOLIC ACID/VITAMIN B COMP W-C CAPSULE PO SCH (10:00)
[2016-07-30] MEDS ORDERED: AMLODIPINE BESYLATE 10 MG TABLET PO SCH (10:00)
[2016-07-30] MEDS ORDERED: MEGESTROL ACETATE SUSP 400 MG/10 ML UDCUP PO SCH (10:00)
[2016-07-30] MEDS ORDERED: (PENDING PHARMACY ID) (Bumetanide [Bumex 2 Mg Tablet] 2 MG) PO SCH (12:02)
--- NOTE | 2016-07-30 12:06 | PDOC DISCHARGE SUMMARY ---
General - Admit/Disc Date/PCP Admission Date/Primary Care Provider: 07/29/16 11:58 Discharge Date: 07/30/16 - Discharge Diagnosis (1) Benzodiazepine overdose Is this a current diagnosis for this admission?: YesSummary: Patient presented with weakness. Head CT was negative. Metabolic workup was negative. According to his daughter he confused his recently prescribed Ativan with his chronic Dilaudid. He possibly took as many as 20 tablets of Ativan over a 2 day course thinking it was pain medication. As a result he became weak and had difficulty ambulating. He is now back to his baseline status. He was able to ambulate 200 feet without assistive device during physical therapy evaluation. (2) Acute metabolic encephalopathy Is this a current diagnosis for this admission?: Yes (3) Anemia in chronic kidney disease (CKD) Is this a current diagnosis for this admission?: Yes (4) CHF (congestive heart failure) Is this a current diagnosis for this admission?: Yes (5) ESRD on hemodialysis Is this a current diagnosis for this admission?: YesSummary: Patient was seen by Dr. Billy of nephrology and underwent hemodialysis while in the hospital. He will need to resume out patient hemodialysis. (6) Chronic pain Is this a current diagnosis for this admission?: YesSummary: Patient is chronic opiate dependent on Dilaudid. - Additional Information Resuscitation Status: Do Not Resuscitate Discharge Diet: Other (Comments) - dialysis Discharge Activity: Slowly Increase Activity Home Medications: Amlodipine Besylate [Norvasc 10 mg Tablet] [facility] Aspirin [Aspirin EC] 81 mg PO DAILY 07/29/16 Bumetanide [Bumex 2 mg Tablet] [facility] 07/[facility]/16 Clonidine HCl [Catapres 0.2 mg Tablet] 0.2 mg PO MOWEFR 07/29/16 Clonidine HCl [Catapres 0.2 mg Tablet] 0.2 mg [facility] 07/29/16 Colchicine [Colchicine 0.6 mg Tablet] 0.6 mg PO DAILYP PRN 07/29/16 Ergocalciferol (Vitamin D2) [Vitamin D2] 1.25 mg PO FR 07/29/16 Hydromorphone HCl [Dilaudid 2 mg Tablet] 2 mg PO Q6HP PRN 07/29/16 Isosorbide Mononitrate [Imdur 30 mg Tablet.er] 30 mg PO SUTUTHSA 07/29/16 Megestrol Acetate [Megace] 10 ml PO DAILY 07/29/16 Ranitidine HCl [Zantac 150 mg Tablet] 150 mg PO BID 07/29/16 Vit B Cmplx 3/FA/Vit C/Biotin [Ina-Anthony Rx Tablet] 1 tab PO DAILY 07/29/16 History of Present Illness Patient complains of: Weakness History of Present Illness: DANIEL MAGUIRE JR is a 66 year old male that comes emergency department for chief complaint of tiredness, weakness, daughter at bedside states she called about 5:30 and he seemed to be slurring his speech over the phone, she states she came evaluated him and found he can barely stay awake and alert when he stood he shuffled his feet. Patient denies any focal numbness or weakness, denies fever, denies any current chest pain and headache. Past medical history of end-stage renal disease on dialysis, had dialysis on Friday and is due on Friday, liver cirrhosis, CHF, COPD with tobacco abuse. Patient recently had a decrease in his Bumex level by cardiology Dr. Garibay, he also sees nephrology Dr. Billy. Upon evaluation in the ED the patient was found somewhat lethargic arousable Alert answering questions appropriately And stating that his extremely weak He was scheduled for dialysis today Patient was admitted under hospitalist service for observation; he will undergo dialysis as scheduled Physical therapy evaluation was obtained and further monitoring Hospital Course Hospital Course: See above Physical Exam Vital Signs: Temp Pulse Resp BP Pulse Ox 98.4 F 71 16 121/43 L 98 07/30/16 07:29 07/30/16 07:29 07/30/16 07:29 07/30/16 07:29 07/30/16 07:29 Intake & Output 07/29/16 07/30/16 07/31/16 06:59 06:59 06:59 Intake Total 250 Output Total 1520 Balance -1270 Weight 56.9 kg GENERAL: No acute distress HEENT: Conjunctiva clear, nonicteric, moist mucous membranes, no JVD, midline trachea RESPIRATORY: Clear to auscultation bilaterally, no wheezes, no rhonchi CARDIAC: Regular rate and rhythm, no murmurs/gallops/rubs ABDOMEN: Soft, nondistended, nontender, positive bowel sounds, no rebound, no guarding EXTREMETIES: No edema, cyanosis, clubbing NEUROLOGIC: Alert, oriented to person/place/time, CN's grossly intact, no focal deficits SKIN: No rash, wounds PSYCH: Normal mood, normal affect Results Laboratory Results: 07/30/16 06:19 TSH 0.56 Free T4 1.84 07/29/16 07/29/16 07/30/16 12:55 18:18 00:21 Troponin I < 0.012 0.013 < 0.012 Labs- Last Values WBC 11.5 10^3/uL (4.0-10.5) H 07/28/16 20:15 RBC 3.32 10^6/uL (4.35-5.55) L 07/28/16 20:15 Hgb 9.5 g/dL (13.5-17.0) L 07/28/16 20:15 Hct 29.0 % (37.9-51.0) L 07/28/16 20:15 MCV 87 fl (80-97) 07/28/16 20:15 MCH 28.6 pg (27.0-33.4) 07/28/16 20:15 MCHC 32.9 g/dL (32.0-36.0) 07/28/16 20:15 RDW 15.3 % (11.5-14.0) H 07/28/16 20:15 Plt Count 164 10^3/uL (150-450) 07/28/16 20:15 Seg Neutrophils % 61.8 % (42-78) 07/28/16 20:15 Lymphocytes % 17.7 % (13-45) 07/28/16 20:15 Monocytes % 16.2 % (3-13) H 07/28/16 20:15 Eosinophils % 3.6 % (0-6) 07/28/16 20:15 Basophils % 0.7 % (0-2) 07/28/16 20:15 Absolute Neutrophils 7.1 10^3/uL (1.7-8.2) 07/28/16 20:15 Absolute Lymphocytes 2.0 10^3/uL (0.5-4.7) 07/28/16 20:15 Absolute Monocytes 1.9 10^3/uL (0.1-1.4) H 07/28/16 20:15 Absolute Eosinophils 0.4 10^3/uL (0.0-0.6) 07/28/16 20:15 Absolute Basophils 0.1 10^3/uL (0.0-0.2) 07/28/16 20:15 Sodium 139.0 mmol/L (137-145) 07/28/16 20:15 Potassium 3.9 mmol/L (3.6-5.0) 07/28/16 20:15 Chloride 103 mmol/L (98-107) 07/28/16 20:15 Carbon Dioxide 23 mmol/L (22-30) 07/28/16 20:15 Anion Gap 13 (5-19) 07/28/16 20:15 BUN 26 mg/dL (7-20) H 07/28/16 20:15 Creatinine 4.12 mg/dL (0.52-1.25) H 07/28/16 20:15 Est GFR ( Amer) 18 (>60) L 07/28/16 20:15 Est GFR (Non-Af Amer) 15 (>60) L 07/28/16 20:15 Glucose 122 mg/dL (75-110) H 07/28/16 20:15 Calcium 8.0 mg/dL (8.4-10.2) L 07/28/16 20:15 Total Bilirubin 0.7 mg/dL (0.2-1.3) 07/28/16 20:15 Direct Bilirubin 0.6 mg/dL (0.0-0.4) H 07/28/16 20:15 Indirect Bilirubin Not Reportable 07/28/16 20:15 Neonat Total Bilirubin Not Reportable 07/28/16 20:15 AST 29 U/L (17-59) 07/28/16 20:15 ALT 27 U/L (21-72) 07/28/16 20:15 Alkaline Phosphatase 75 U/L (38-126) 07/28/16 20:15 Ammonia 13.3 umol/L (9-33) 07/28/16 20:15 Creatine Kinase 83 U/L (55-170) 07/28/16 20:15 CK-MB (CK-2) 1.76 ng/mL (<4.55) 07/28/16 20:15 Troponin I < 0.012 ng/mL 07/30/16 00:21 Total Protein 5.1 g/dL (6.3-8.2) L 07/28/16 20:15 Albumin 2.3 g/dL (3.5-5.0) L 07/28/16 20:15 TSH 0.56 uIU/mL (0.47-4.68) 07/30/16 06:19 Free T4 1.84 ng/dL (0.78-2.19) 07/30/16 06:19 Urine Color YELLOW 07/28/16 23:14 Urine Appearance CLEAR 07/28/16 23:14 Urine pH 9.0 (5.0-9.0) 07/28/16 23:14 Ur Specific [place] 1.008 07/28/16 23:14 Urine Protein 100 mg/dL (NEGATIVE) H 07/28/16 23:14 Urine Glucose (UA) NEGATIVE mg/dL (NEGATIVE) 07/28/16 23:14 Urine Ketones NEGATIVE mg/dL (NEGATIVE) 07/28/16 23:14 Urine Blood NEGATIVE (NEGATIVE) 07/28/16 23:14 Urine Nitrite NEGATIVE (NEGATIVE) 07/28/16 23:14 Urine Bilirubin NEGATIVE (NEGATIVE) 07/28/16 23:14 Urine Urobilinogen NEGATIVE mg/dL (<2.0) 07/28/16 23:14 Ur Leukocyte Esterase NEGATIVE (NEGATIVE) 07/28/16 23:14 Urine WBC (Auto) 2 /HPF 07/28/16 23:14 Urine RBC (Auto) 1 /HPF 07/28/16 23:14 Urine Ascorbic Acid NEGATIVE (NEGATIVE) 07/28/16 23:14 Impressions: Chest X-Ray 07/28/16 19:58 IMPRESSION: NO ACUTE RADIOGRAPHIC FINDING IN THE CHEST. Head CT 07/28/16 19:58 IMPRESSION: CHRONIC CHANGES OF ATROPHY AND MICROVASCULAR ISCHEMIA. NO ACUTE PROCESS. Qualifiers PATEINT BEING DISCHARGED WITH ANY OF THE FOLLOWING DIAGNOSIS?: No Plan Time Spent: Less than 30 Minutes
[2016-07-30 12:31] VITALS: BP 122/93
[2016-07-31] MEDS ORDERED: CLONIDINE HCL 0.2 MG TABLET PO SCH (10:00)
[2016-08-02] MEDS ORDERED: ERGOCALCIFEROL (VITAMIN D2) 50000 UNIT (1.25 MG) CAPSULE PO SCH (10:00)
[2016-08-02] MEDS ORDERED: (PENDING PHARMACY ID) (Ergocalciferol (Vitamin D2) [Vitamin D2] 1.25 MG) PO SCH (12:02)
== END 2016-07-30 12:45 | disposition home health service (06) ==
LOC: ER 19:05 → EH 07-29 09:02 → UNDOADMIN 07-29 09:02 → EH 07-29 11:58 → INTOOBSV 07-29 11:58 → 5 07-29 15:15
PROVIDERS: ADMIT Emergency Medicine; ATTEND Emergency Medicine
PROC: 5A1D00Z (ICD-10-PCS; principal; 2016-07-29)
DX: T42.4X1A Poisoning by benzodiazepines, accidental (unintentional), initial encounter (principal); M62.81 Muscle weakness (generalized); R26.2 Difficulty in walking, not elsewhere classified; G93.41 Metabolic encephalopathy; I13.2 Hypertensive heart and chronic kidney disease with heart failure and with stage 5 chronic kidney disease, or end stage renal disease; D63.1 Anemia in chronic kidney disease; N18.6 End stage renal disease; I50.30 Unspecified diastolic (congestive) heart failure; M51.26 Other intervertebral disc displacement, lumbar region; Z99.2 Dependence on renal dialysis; F11.20 Opioid dependence, uncomplicated; E88.09 Other disorders of plasma-protein metabolism, not elsewhere classified; K74.60 Unspecified cirrhosis of liver; J44.9 Chronic obstructive pulmonary disease, unspecified; F17.220 Nicotine dependence, chewing tobacco, uncomplicated; M10.9 Gout, unspecified; R60.0 Localized edema; Z66 Do not resuscitate; Z90.49 Acquired absence of other specified parts of digestive tract; Z79.82 Long term (current) use of aspirin; Z79.818 Long term (current) use of other agents affecting estrogen receptors and estrogen levels; Z60.2 Problems related to living alone
CPT/HCPCS: 93005 ×2; 99285; 36415 ×3; 84439; 82553; 82140; 82550; 84443; 85025; 80053; 81001; 84484 ×3; 71010; 70450; 93010 ×2; 97163; G0257; G0378 ×3; P9047; A9270 ×10; J1644 ×2; Q4081; J3490; G8978; G8979

== ENCOUNTER 2016-08-14 08:13 | Day surgery (SDC) | payer MEDICARE, OTHER ==
[~2016-08-14 08:13] MED LIST changes: -CEFAZOLIN 1 GM/D5W RTU 1 GM/50 ML RTUPB IV PRN; +EPINEPHRINE INJ 1 MG/10 ML DISP.SYRIN ONE; +FENTANYL CITRATE INJ/PF 100 MCG/2 ML AMPUL ONE; +FLUMAZENIL INJ 0.5 MG/5 ML VIAL IV ONE; +GLYCOPYRROLATE INJ 0.4 MG/2 ML VIAL ONE; -LIDOCAINE 0.5% INJ-PF (5 MG/ML) 50 ML SDV SUBCUT PRN; +MIDAZOLAM 2 MG/2 ML INJ ONE; +NALOXONE HCL INJ/PF 0.4 MG/1 ML SDV ONE; -NORMAL SALINE 1000 ML (RENAL PATIENTS) IV PRN; +ONDANSETRON HCL INJ/PF 4 MG/2 ML SDV ONE
--- NOTE | 2016-08-14 16:37 | OPERATIVE REPORT E ---
Operative Report NAME: DANIEL MAGUIRE : 1950 AGE: 66Y DATE OF SURGERY: 08/14/2016 ROOM: PROCEDURE: Upper endoscopy. INDICATIONS: Nausea and vomiting. PRE-PROCEDURE MEDICATIONS AND ANESTHESIA: Includes 2 mg of Versed. POSTPROCEDURE DIAGNOSES: 1. Duodenal ulcer, clean base, not actively bleeding. 2. Mild gastritis. 3. Esophagitis. SURGEON: STEFANIE DE OLIVEIRA M.D. BLOOD LOSS: None. COMPLICATIONS: None. The patient tolerated the procedure well. DISPOSITION: Patient is discharged in good condition. DISCHARGE DATE: 08/14/2016 DISCHARGE DIET: Regular. DISCHARGE ACTIVITY: Regular. DESCRIPTION OF PROCEDURE: Risks, benefits, and alternatives of the procedure, including risks of bleeding, perforation requiring surgery are explained to the patient in detail. Informed consent is obtained. The patient is placed in a left lateral decubital position. A time out was called. Conscious sedation medications are provided. A GIF-130 Olympus videoscope is inserted into the patient's mouth and hypopharynx. The esophagus is identified, intubated, and insufflated. The scope is then gradually advanced downwards towards the distal EG junction. Mild distal esophagitis is noted. The mucosa does look pale. The scope is then pushed down into the stomach cavity and lesser curvature and followed down to the antrum. Intubation of the first portion of the duodenum yields duodenal ulcer, however, it is nonobstructive. I was able to guide the scope to the second portion of the duodenum. I then pulled the scope back out into the antral cavity and retroflexed. The cardia, fundus, and incisura angularis are noted. The scope is unretroflexed, the rest of the air suctioned out of the patient's stomach, biopsies obtained, and the procedure then completed. The patient tolerated the procedure well. IMPRESSION: 1. May have early vascular compromise. 2. Duodenal ulcer. 3. Erosive esophagitis. PLAN: We will await biopsies and treat for Helicobacter pylori if positive. Otherwise, continue PPI. We will await biopsies and make further recommendations. A 2-3 week followup to discuss findings. DICTATING PHYSICIAN: STEFANIE DE OLIVEIRA M.D. [id number] Y#: [id number] ID: [id number] JOB#: [id number] ACCT: [id number] cc:STEFANIE DE OLIVEIRA M.D. >
[2016-08-15 15:09] VITALS: BP 109/53
== END 2016-08-14 10:34 | disposition home or self-care (01) ==
LOC: END 08:13
PROVIDERS: ATTEND Internal Medicine Gastroenterology
PROC: 0DB68ZX Excision of Stomach, Via Natural or Artificial Opening Endoscopic, Diagnostic (ICD-10-PCS; principal; 2016-08-14 08:30)
DX: K29.50 Unspecified chronic gastritis without bleeding (principal); K20.9 Esophagitis, unspecified; K26.9 Duodenal ulcer, unspecified as acute or chronic, without hemorrhage or perforation; D64.9 Anemia, unspecified; R63.0 Anorexia; Z68.1 Body mass index [BMI] 19.9 or less, adult; M10.9 Gout, unspecified; I51.9 Heart disease, unspecified; I10 Essential (primary) hypertension; F17.210 Nicotine dependence, cigarettes, uncomplicated; Z79.899 Other long term (current) drug therapy; Z79.891 Long term (current) use of opiate analgesic
CPT/HCPCS: 43239; 88305; J0171; J2250; J2310; J2405; J3010; J3490

== ENCOUNTER 2016-08-30 10:15 | Day surgery (SDC) | payer MEDICARE, OTHER ==
[2016-08-30] MEDS ORDERED: PROPOFOL INJ 200 MG/20 ML VIAL IV ONE (11:52)
[2016-08-30] MEDS ORDERED: MIDAZOLAM 2 MG/2 ML INJ ONE (11:52)
--- NOTE | 2016-08-30 12:33 | Operative Report ---
Operative Report DATE OF SURGERY: 08/30/16 Operative Report: The risks, benefits and alternatives of the procedure including risks of bleeding, perforation requiring surgery are explained to the patient detail and informed consent is obtained. Patient was taken back to the operating room placed in the left, lateral decubital position. Timeout was called. Propofol medications administered. An Olympus spelled scope was inserted in the patient' s rectum. The scope was then gradually advanced all the way to cecum. Cecum was identified by the usual anatomical landmarks including the ileocecal valve as well as appendiceal office. Photodocumentation was obtained. Prep is not good. However I was able to irrigate the area to get better visualization. The scope was then sequentially pulled back via the rest segments of the colon including the ascending colon, hepatic flexure, transverse colon, splenic flexure, descending colon and finding to the rectosigmoid portions of the colon. Retroflexion maneuver was performed. PREOPERATIVE DIAGNOSIS: Abdominal pain. Change in bowel habits POSTOPERATIVE DIAGNOSIS: 2 colon polyps ascending colon removed via snare polypectomy. Mild diverticulosis. Internal hemorrhoids OPERATION: Colonoscopy with snare polypectomy SURGEON: ELIZABETH DE OLIVEIRA ANESTHESIA: LMAC TISSUE REMOVED OR ALTERED: Colon polyps retrieved COMPLICATIONS: None. ESTIMATED BLOOD LOSS: None. INTRAOPERATIVE FINDINGS: As described above. PROCEDURE: Patient tolerated procedure well. No immediate postprocedure complications are noted. Patient discharged in good condition. Discharge date August 30, 2016. Discharge diet: Regular. Discharge activity: Regular. Follow-up as needed We will wait on pathology of the polyp 3-5 year surveillance colonoscopy depending on the clinical situation.
[2016-08-30 14:32] VITALS: BP 148/63
== END 2016-08-30 13:55 | disposition home or self-care (01) ==
LOC: OROUT 10:15
PROVIDERS: ATTEND Internal Medicine Gastroenterology
PROC: 0DBF8ZX Excision of Right Large Intestine, Via Natural or Artificial Opening Endoscopic, Diagnostic (ICD-10-PCS; principal; 2016-08-30 12:00)
DX: K57.30 Diverticulosis of large intestine without perforation or abscess without bleeding (principal); D12.2 Benign neoplasm of ascending colon; K64.8 Other hemorrhoids; D64.9 Anemia, unspecified; I10 Essential (primary) hypertension; F17.210 Nicotine dependence, cigarettes, uncomplicated; K26.9 Duodenal ulcer, unspecified as acute or chronic, without hemorrhage or perforation; M10.9 Gout, unspecified; R63.0 Anorexia; I51.9 Heart disease, unspecified; Z79.891 Long term (current) use of opiate analgesic; Z68.1 Body mass index [BMI] 19.9 or less, adult; Z79.82 Long term (current) use of aspirin; Z79.899 Other long term (current) drug therapy
CPT/HCPCS: 45385; 36415; 84132; 88305 ×2; J2250; J2704; 810

== ENCOUNTER 2016-09-03 09:37 | Emergency (ER) | payer MEDICARE, OTHER ==
--- NOTE | 2016-09-03 10:44 | RADIOLOGY REPORT (SQ) ---
EXAM DESCRIPTION: CT HEAD WITHOUT COMPLETED DATE/TIME: 09/03/2016 10:30 am REASON FOR STUDY: Patient fell and hit right moravian region COMPARISON: 07/28/2016 TECHNIQUE: Axial images acquired through the brain without intravenous contrast. Images reviewed wi th bone, brain and subdural windows. Images stored on PACS. All CT scanners at this facility use dose modulation, iterative reconstruction, and/or weight based d osing when appropriate to reduce radiation dose to as low as reasonably achievable (ALARA). [facility]: Dose Right [facility]: CareDose [facility]: Dose Right [facility]: Teradose 4D [facility]: [employer] RADIATION DOSE: 48.95 mGy. LIMITATIONS: None. FINDINGS: VENTRICLES: Normal size and contour. CEREBRUM: Cortical atrophy is present. There are areas of decreased attenuation in the periventricu lar white matter. No masses. No hemorrhage. No midline shift. Normal pérez/white matter differenti ation. No evidence for acute infarction. CEREBELLUM: No masses. No hemorrhage. No alteration of density. No evidence for acute infarction. EXTRAAXIAL SPACES: No fluid collections. No masses. ORBITS AND GLOBE: No intra- or extraconal masses. Normal contour of globe without masses. CALVARIUM: No fracture. PARANASAL SINUSES: No fluid or mucosal thickening. SOFT TISSUES: There is a right frontotemporal scalp hematoma. There are subcutaneous calcifications in this area OTHER: No other significant finding. IMPRESSION: Scalp hematoma with no acute intracranial pathology. There are involutional changes of aging in the evidence of chronic microvascular ischemic disease. TECHNICAL DOCUMENTATION: JOB ID: [id number] Quality ID # [id number]: Final reports with documentation of one or more dose reduction techniques (e.g., Au tomated exposure control, adjustment of the mA and/or kV according to patient size, use of iterative reconstruction technique) 2010 [employer]- All Rights Reserved
--- NOTE | 2016-09-03 11:11 | ER Document Report ---
ED Fall - General Chief Complaint: Fall Injury Stated Complaint: FALL/HEAD INJURY Time Seen by Provider: 09/03/16 10:15 Notes: Patient says his feet got caught together this morning and he fell, hitting his right forehead/adventism region. Denies LOC or any neuro deficits Has been able to stand and walk. Only other injury is a skin tear of the outsite of the right elbow. Denies any neck pain. Denies diff breathing, rib pain. Denies abdom pain and no vomiting. On dialysis M - W - . On no blood thinners. TRAVEL OUTSIDE OF THE [place] IN LAST 30 DAYS: No - Related data Allergies/Adverse Reactions: No Known Allergies Allergy (Verified 09/03/16 09:49) Past Medical History - Social History Smoking Status: Current Every Day Smoker Chew tobacco use (# tins/day): No Frequency of alcohol use: None Drug Abuse: None Family History: Reviewed & Not Pertinent Patient has suicidal ideation: No Patient has homicidal ideation: No - Past Medical History Cardiac Medical History: Reports: Hx Hypercholesterolemia, Hx Hypertension Denies: Hx Coronary Artery Disease, Hx Heart Attack Pulmonary Medical History: Denies: Hx Asthma, Hx Bronchitis, Hx Pneumonia Neurological Medical History: Denies: Hx Cerebrovascular Accident, Hx Seizures Renal/ Medical History: Reports: Hx End Stage Renal Disease, Hx Hemodialysis, Hx Kidney Stones, Hx Peritoneal Dialysis GI Medical History: Reports: Hx Cirrhosis, Hx Gastroesophageal Reflux Disease Musculoskeltal Medical History: Reports Hx Arthritis, Reports Hx Gout Past Surgical History: Reports: Hx Appendectomy, Hx Cholecystectomy, Hx Herniorrhaphy, Hx Orthopedic Surgery - B elbow, R wrist, Hx Vascular Surgery - Perm catheter for dialysis, Other - Cataract extraction - Immunizations Immunizations up to date: No Hx Diphtheria, Pertussis, Tetanus Vaccination: Yes Hx Pneumococcal Vaccination: 12/29/14 Review of Systems - Review of Systems Constitutional: denies: Fever EENT: denies: Eye pain, Blurred vision Cardiovascular: denies: Chest pain Respiratory: denies: Hurts to breathe, Short of breath Gastrointestinal: denies: Abdominal pain, Diarrhea, Vomiting Genitourinary: No symptoms reported Musculoskeletal: See HPI Skin: See HPI Neurological/Psychological: No symptoms reported -: Yes All other systems reviewed and negative Physical Exam - Vital signs Vitals: Temp Pulse Resp BP Pulse Ox 98.7 F 89 18 142/51 H 100 09/03/16 09:40 09/03/16 09:40 09/03/16 09:40 09/03/16 09:40 09/03/16 09:40 Interpretation: Normal - General General appearance: Appears well, Alert In distress: None - HEENT Head: Ecchymosis - small hematoma right adventism with a central bruising about a centimeter diameter. Tender Eyes: Normal Extraocular movements intact: Yes Pupils: PERRL Ears: Normal - Respiratory Respiratory status: No respiratory distress Chest status: Nontender Breath sounds: Normal. No: Rales Chest palpation: Normal. No: Subcutaneous emphysema, Tender - Cardiovascular Rhythm: Regular - Abdominal Tenderness: Nontender. No: Guarding, Rebound - Back Back: Normal, Nontender - Extremities General upper extremity: Normal inspection, Nontender, Normal color, Normal ROM , Normal temperature General lower extremity: Normal inspection, Nontender, Normal color, Normal ROM , Normal temperature, Normal weight bearing. No: Carie's sign Elbow: Other - small skin tear over outer aspect of right elbow - Neurological Neuro grossly intact: Yes Cognition: Normal Orientation: AAOx4 Speech: Normal - Skin Skin Temperature: Warm Skin Moisture: Dry Notes: clean superficial skin tear over left elbow laterally Course - Re-evaluation Re-evalutation: 09/04/16 20:18 cleansed and antibiotic ointment applied to skin tear - Vital Signs Vital signs: Temp Pulse Resp BP Pulse Ox 98.7 F 78 17 137/59 H 100 09/03/16 09:40 09/03/16 11:24 09/03/16 11:24 09/03/16 11:24 09/03/16 11:24 - Diagnostic Test Radiology reviewed: Image reviewed, Reports reviewed - CT scan of head normal. Discharge - Discharge Clinical Impression: Contusion of forehead Qualifiers: Encounter type: initial encounter Qualified Code(s): S00.83XA - Contusion of other part of head, initial encounter Skin tear of elbow without complication Qualifiers: Encounter type: initial encounter Laterality: right Qualified Code(s): S51.011A - Laceration without foreign body of right elbow, initial encounter Condition: Stable Disposition: HOME, SELF-CARE Additional Instructions: HEAD INJURY PRECAUTIONS: At this point, there is no evidence that your head injury is serious. Observation is necessary, however. Take only clear liquids for the first few hours, unless told otherwise by the doctor. If no pain medication was prescribed, you may take acetaminophen according to the directions on the bottle. Do not take any medication that may alter your level of alertness (unless you've discussed it with the doctor first) . Limit activity for the first 24 hours. Bed rest is best. During the first 24 hours, check to see approximately every two to three hours that the patient is easily arousable, responds normally, and can perform common tasks such as walking without difficulty. Contact your doctor or go to the hospital if any of the following things occur: Persistent vomiting, difficulty in arousing the patient, worsening or continued headache, or failure to improve as expected. Head injuries can cause symptoms that persist for a few days or even a few weeks. Your CT scan of your head and brain are both normal. CONTUSION: Your injury has resulted in a contusion -- a crushing of the deep tissues. No injury to important structures was detected during the physician's exam. Contusions vary in the amount of pain they cause, and in the length of time required for healing. Typically, the area will become bruised, and will remain painful to touch for two or three weeks. However, most patients are back to working and playing within a few days. After the initial period of rest and cold-packs, your symptoms (together with the doctor's recommendations) will determine how rapidly you can get back to full activity. Usually this means "do what feels okay, but don't do things that hurt." If re-examination was recommended, it's important to follow up as instructed. Call the doctor or return any time if pain increases, if swelling becomes severe, if you develop numbness or weakness in an injured extremity, or if any other alarming symptoms occur. ABRASIONS: An abrasion is a scraping injury of the skin. Some scarring may result. The seriousness of an abrasion is not always obvious at first. Hidden tissue damage may be present and infection may occur despite proper care. Complete healing may take from ten days to as long as a month. The healing time depends on the depth of the abrasion, and on the amount of crushing of underlying tissues from the injury. Keep the wound and dressing clean. Do not shower or bathe the area until okayed by the doctor. If the dressing gets wet, remove it and blot the wound dry, then reapply a clean dressing. Dressings should be changed every day. Sunscreen should be used for six months after the skin is healed. If any signs of infection occur (swelling, redness, increasing tenderness, red streaks, profuse purulent drainage from the abrasion, tender lumps in the armpit or groin above the abrasion, or fever), see the doctor immediately. USE OF TYLENOL (ACETAMINOPHEN): Acetaminophen may be taken for pain relief or fever control. It's much safer than aspirin, offering a wider range of "safe" dosages. It is safe during . Some brand names are Tylenol, Panadol, Datril, Anacin 3, Tempra, and Liquiprin. Acetaminophen can be repeated every four hours. The following are maximum recommended dosages: WEIGHT Dose Drops Elixir Chewable( 80mg) (LBS.) drprs=droppers tsp=teaspoon >89 pounds or adults 650 mg to 900 mg Acetaminophen can be repeated every four hours. Maximum dose not to exceed 4000 mg a day. These maximum recommended dosages are slightly higher than the dosages written on the product container, but these dosages are very safe and below the toxic dosage for acetaminophen. NON-SUTURED LACERATION: Your laceration did not require suturing. Some lacerations cannot be sutured because of increased infection risk, while others simply don't need stitches because they are shallow or very short. Your injury should be protected while it heals. Usually complete healing takes 10 to 14 days. Keep the dressing clean and dry, and change it every day. If you notice increasing pain, redness, swelling, drainage, or tender lumps in the armpit or groin above the injury, infection may be present. You should call the doctor at once. ICE PACKS: Apply ice packs frequently against the painful area. Many different schedules are recommended, such as "20 minutes on, 20 minutes off" or "one hour ice, two hours rest." If you need to work, you may need to go longer between ice treatments. You should plan to have the area ice packed AT LEAST one fourth of the time. The ice should be applied over the wrap, tape, or splint, or over a layer of cloth -- not directly against the skin. Some ice bags have a built-in cloth and can be put directly on the skin. FOLLOW-UP CARE: If you have been referred to a physician for follow-up care, call the physician s office for an appointment as you were instructed or within the next two days. If you experience worsening or a significant change in your symptoms, notify the physician immediately or return to the Emergency Department at any time for re-evaluation. Referrals: ROBERT SANDOVAL FNP [Primary Care Provider] - Follow up as needed
[2016-09-03 11:26] VITALS: BP 137/59
== END 2016-09-03 11:24 | disposition home or self-care (01) ==
LOC: ER 09:37
DX: S00.83XA Contusion of other part of head, initial encounter (principal); S51.011A Laceration without foreign body of right elbow, initial encounter; W19.XXXA Unspecified fall, initial encounter; F17.200 Nicotine dependence, unspecified, uncomplicated
CPT/HCPCS: 70450; 99283

== ENCOUNTER 2016-09-08 10:50 | Emergency (ER) | payer MEDICARE, OTHER ==
--- NOTE | 2016-09-08 11:09 | ER Document Report ---
ED Medical Screen (RME) - General Chief Complaint: Fall Injury Stated Complaint: CONFUSION/DIZZY Time Seen by Provider: 09/08/16 10:59 Mode of Arrival: Wheelchair Information source: Patient Notes: 66-year-old hypertensive, hemodialysis, cirrhosis, CHF male here with his daughter complaining of dizziness and intermittent confusion since he tripped and fell hitting his head on Friday. He was seen in the emergency department and the CT scan was negative. States he also has some shortness of breath today feeling like he cannot get enough oxygen in. TRAVEL OUTSIDE OF THE [place] IN LAST 30 DAYS: No - Related Data Allergies/Adverse Reactions: No Known Allergies Allergy (Verified 09/08/16 10:54) Past Medical History - Past Medical History Cardiac Medical History: Reports: Hx Hypercholesterolemia, Hx Hypertension Denies: Hx Coronary Artery Disease, Hx Heart Attack Pulmonary Medical History: Denies: Hx Asthma, Hx Bronchitis, Hx COPD, Hx Pneumonia Neurological Medical History: Denies: Hx Cerebrovascular Accident, Hx Seizures Renal/ Medical History: Reports: Hx End Stage Renal Disease, Hx Hemodialysis, Hx Kidney Stones. Denies: Hx Peritoneal Dialysis - HEMO GI Medical History: Reports: Hx Cirrhosis, Hx Gastroesophageal Reflux Disease Musculoskeltal Medical History: Reports Hx Arthritis, Reports Hx Gout Psychiatric Medical History: Denies: Hx Depression Past Surgical History: Reports: Hx Appendectomy, Hx Cholecystectomy, Hx Herniorrhaphy, Hx Orthopedic Surgery - B elbow, R wrist, Hx Vascular Surgery - Perm catheter for dialysis, Other - Cataract extraction - Immunizations Immunizations up to date: No Hx Diphtheria, Pertussis, Tetanus Vaccination: Yes Physical Exam - Vital signs Vitals: Temp Pulse Resp BP Pulse Ox 98.0 F 89 14 110/59 L 97 09/08/16 10:54 09/08/16 10:54 09/08/16 10:54 09/08/16 10:54 09/08/16 10:54 Course - Vital Signs Vital signs: Temp Pulse Resp BP Pulse Ox 98.0 F 89 14 110/59 L 97 09/08/16 10:54 09/08/16 10:54 09/08/16 10:54 09/08/16 10:54 09/08/16 10:54
--- NOTE | 2016-09-08 12:02 | RADIOLOGY REPORT (SQ) ---
EXAM DESCRIPTION: CT HEAD WITHOUT COMPLETED DATE/TIME: 09/08/2016 11:47 am REASON FOR STUDY: intermittent confusion since head injury COMPARISON: 09/03/2016. TECHNIQUE: Axial images acquired through the brain without intravenous contrast. Images reviewed wi th bone, brain and subdural windows. Images stored on PACS. All CT scanners at this facility use dose modulation, iterative reconstruction, and/or weight based d osing when appropriate to reduce radiation dose to as low as reasonably achievable (ALARA). [facility]: Dose Right [facility]: CareDose [facility]: Dose Right [facility]: Teradose 4D [facility]: Social 2 Step RADIATION DOSE: 64.61mGy. LIMITATIONS: None. FINDINGS: VENTRICLES: Prominent. CEREBRUM: No masses. No hemorrhage. No midline shift. Areas of low density in the white matter mos t likely due to chronic micro-vascular ischemic change. No evidence for acute infarction. CEREBELLUM: No masses. No hemorrhage. No alteration of density. No evidence for acute infarction. EXTRAAXIAL SPACES: Age-related involutional change. No fluid collections. No masses. ORBITS AND GLOBE: No intra- or extraconal masses. Normal contour of globe without masses. CALVARIUM: No fracture. PARANASAL SINUSES: No fluid or mucosal thickening. SOFT TISSUES: Improved right scalp hematoma. OTHER: No other significant finding. IMPRESSION: IMPROVED RIGHT SCALP HEMATOMA. NO ACUTE INTRACRANIAL PROCESS IDENTIFIED. TECHNICAL DOCUMENTATION: JOB ID: [id number] Quality ID # [id number]: Final reports with documentation of one or more dose reduction techniques (e.g., Au tomated exposure control, adjustment of the mA and/or kV according to patient size, use of iterative reconstruction technique) 2010 [employer]- All Rights Reserved
[2016-09-08 12:14] LABS: ALANINE AMINOTRANSFERASE 40 U/L (21-72); ALBUMIN 2.5 g/dL (3.5-5.0); ALKALINE PHOSPHATASE 113 U/L (38-126); ANION GAP 14 (5-19); ASPARTATE AMINO TRANSFERASE 42 U/L (17-59); BILIRUBIN,DIRECT 1.3 mg/dL (0.0-0.4); BILIRUBIN,TOTAL 1.5 mg/dL (0.2-1.3); BLOOD UREA NITROGEN 14 mg/dL (7-20); CALCIUM 7.5 mg/dL (8.4-10.2); CARBON DIOXIDE 22 mmol/L (22-30); CHLORIDE 97 mmol/L (98-107); CREATINE KINASE 41 U/L (55-170); CREATININE RESULT 4.16 mg/dL (0.52-1.25); GLUCOSE 118 mg/dL (75-110); MAGNESIUM 1.3 mg/dL (1.6-2.3); SODIUM 132.9 mmol/L (137-145); TOTAL PROTEIN 5.7 g/dL (6.3-8.2)
[2016-09-08 12:16] LABS: ALCOHOL < 10 mg/dL (NONE DETECTED); POTASSIUM 3.1 mmol/L (3.6-5.0)
[2016-09-08 12:24] LABS: CREATINE KINASE MB 1.57 ng/mL (<4.55); TROPONIN I < 0.012 ng/mL
--- NOTE | 2016-09-08 12:28 | RADIOLOGY REPORT (SQ) ---
EXAM DESCRIPTION: CHEST PA/LAT COMPLETED DATE/TIME: 09/08/2016 12:17 pm REASON FOR STUDY: shortness of breath COMPARISON: 12/19/2015 EXAM PARAMETERS: NUMBER OF VIEWS: two views TECHNIQUE: Digital Frontal and Lateral radiographic views of the chest acquired. RADIATION DOSE: NA LIMITATIONS: none FINDINGS: LUNGS AND PLEURA: No new opacities, masses or pneumothorax. No pleural effusion. MEDIASTINUM AND HILAR STRUCTURES: No masses or contour abnormalities. HEART AND VASCULAR STRUCTURES: Heart stable in size. No evidence for failure. BONES: No acute findings. HARDWARE: Right-sided PermCath in place. OTHER: No other significant finding. IMPRESSION: NO SIGNIFICANT RADIOGRAPHIC FINDING IN THE CHEST. TECHNICAL DOCUMENTATION: JOB ID: [id number] 1886 [employer]- All Rights Reserved
[2016-09-08 14:36] LABS: ABSOLUTE BASOPHILS # (AUTO) 0.1 10^3/uL (0.0-0.2); ABSOLUTE LYMPHOCYTES (AUTO) 1.6 10^3/uL (0.5-4.7); ABSOLUTE MONOCYTES (AUTO) 1.1 10^3/uL (0.1-1.4); ABSOLUTE NEUT (AUTO) 8.4 10^3/uL (1.7-8.2); BASOPHILS % (AUTO) 1.1 % (0-2); EOSINOPHILS % (AUTO) 0.4 % (0-6); HEMATOCRIT 35.1 % (37.9-51.0); HEMOGLOBIN 11.2 g/dL (13.5-17.0); HGB HCT DIFFERENCE -1.5; MEAN CORPUSCULAR HEMOGLOBIN 29.3 pg (27.0-33.4); MEAN CORPUSCULAR HGB CONC 31.9 g/dL (32.0-36.0); MEAN CORPUSCULAR VOLUME 92 fl (80-97); MONOCYTES % (AUTO) 9.9 % (3-13); RED BLOOD COUNT 3.83 10^6/uL (4.35-5.55); RED CELL DISTRIBUTION WIDTH 16.8 % (11.5-14.0); SEGMENTED NEUTROPHILS % (AUTO) 74.6 % (42-78); WHITE BLOOD COUNT 11.2 10^3/uL (4.0-10.5)
--- NOTE | 2016-09-08 16:12 | ER Document Report ---
ED Neuro Symptoms/Deficit - General Mode of Arrival: Wheelchair Information source: Patient TRAVEL OUTSIDE OF THE [place] IN LAST 30 DAYS: No <YANELIS AQUINO - Last Filed: 09/08/16 18:13> <MIRNAMILDRED - Last Filed: 09/08/16 20:16> - General Chief Complaint: Fall Injury Stated Complaint: CONFUSION/DIZZY Time Seen by Provider: 09/08/16 10:59 Notes: Patient is a 66-year-old male who presents to the ER today for confusion, dizziness, unsteady gait since falling on the sixth of this month. He was evaluated here on the sixth after the fall and CT just showed hematoma. Daughter states that he is usually completely independent, living at home by himself unable to get around without any issues, ambulatory on his own. She denies that he has hit his head or fallen again. She states that he has been so confused that he has forgotten that he has called her as many as 6 times today, and a couple days ago he thought it was 6 AM when it was 6 PM. She says is also very weak and fatigued and does not want to do anything, just lays around and sleeps which is unlike him. (YANELIS AQUINO) - Related Data Allergies/Adverse Reactions: No Known Allergies Allergy (Verified 09/08/16 10:54) Past Medical History - General Information source: Patient - Social History Smoking Status: Unknown if Ever Smoked Family History: Reviewed & Not Pertinent Patient has suicidal ideation: No Patient has homicidal ideation: No - Past Medical History Cardiac Medical History: Reports: Hx Hypercholesterolemia, Hx Hypertension Denies: Hx Coronary Artery Disease, Hx Heart Attack Pulmonary Medical History: Denies: Hx Asthma, Hx Bronchitis, Hx COPD, Hx Pneumonia Neurological Medical History: Denies: Hx Cerebrovascular Accident, Hx Seizures Renal/ Medical History: Reports: Hx End Stage Renal Disease, Hx Hemodialysis, Hx Kidney Stones. Denies: Hx Peritoneal Dialysis - HEMO GI Medical History: Reports: Hx Cirrhosis, Hx Gastroesophageal Reflux Disease Musculoskeltal Medical History: Reports Hx Arthritis, Reports Hx Gout Psychiatric Medical History: Denies: Hx Depression Past Surgical History: Reports: Hx Appendectomy, Hx Cholecystectomy, Hx Herniorrhaphy, Hx Orthopedic Surgery - B elbow, R wrist, Hx Vascular Surgery - Perm catheter for dialysis, Other - Cataract extraction - Immunizations Immunizations up to date: No Hx Diphtheria, Pertussis, Tetanus Vaccination: Yes Hx Pneumococcal Vaccination: 12/29/14 <YANELIS AQUINO - Last Filed: 09/08/16 18:13> Review of Systems - Review of Systems Constitutional: See HPI EENT: No symptoms reported Cardiovascular: No symptoms reported Respiratory: No symptoms reported Gastrointestinal: No symptoms reported Genitourinary: No symptoms reported Male Genitourinary: No symptoms reported Musculoskeletal: No symptoms reported Hematologic/Lymphatic: No symptoms reported Neurological/Psychological: See HPI <YANELIS AQUINO - Last Filed: 09/08/16 18:13> Physical Exam <YANELIS AQUINO - Last Filed: 09/08/16 18:13> <MILDRED BRADLEY - Last Filed: 09/08/16 20:16> - Vital signs Vitals: Temp Pulse Resp BP Pulse Ox 98.0 F 89 14 110/59 L 97 09/08/16 10:54 09/08/16 10:54 09/08/16 10:54 09/08/16 10:54 09/08/16 10:54 - Notes Notes: PHYSICAL EXAMINATION: GENERAL: weak appearing, but in no acute distress. HEAD: Atraumatic, normocephalic. EYES: Pupils equal round and reactive to light, extraocular movements intact, sclera anicteric, conjunctiva are normal. NECK: Normal range of motion, supple without lymphadenopathy LUNGS: CTAB and equal. No wheezes rales or rhonchi. HEART: Regular rate and rhythm without murmurs ABDOMEN: Soft, no tenderness. No guarding, no rebound EXTREMITIES: Normal range of motion, no pitting edema. No cyanosis. NEUROLOGICAL: Cranial nerves grossly intact. Normal sensory/motor exams. Good and equal strength bilaterally, Kernig and Brudzinski's signs negative, Romberg' s test normal, normal heel to bradford testing PSYCH: Normal mood, normal affect. SKIN: Warm, Dry, normal turgor, large 7cm by 3cm area of erythema, nontender and not warm to touch to left lower anterior extremity surrounding skin abrasion , no drainage or bleeding (YANELIS AQUINO) Course - Laboratory Result Diagrams: 09/08/16 14:20 09/08/16 11:38 <YANELIS AQUINO - Last Filed: 09/08/16 18:13> - Laboratory Result Diagrams: 09/08/16 14:20 09/08/16 11:38 <MILDRED BRADLEY - Last Filed: 09/08/16 20:16> - Re-evaluation Re-evalutation: 09/08/16 17:48 labwork is really at pt's baseline today, CKD at baseline, no acute reason for pt's symptoms, CT head repeated today and shows just improving hematoma but no acute abnormality. Dr. Burns, hospitalist here declined taking patient at this time because we do not have neurology supervisor purification and due to patient traumatic head injury patient needed neuro. Dr. Abdalla, hospitalist at [facility], agrees to take pt at this time. (YANELIS AQUINO) 09/08/16 20:15 Patient drowsy and sleeping but is arousable, giving zofran for complaint of mild nausea after eating, no other complaints. No unstable vital signs. Transport ETA about 15 minutes. Stable for transfer. (MILDRED BRADLEY) - Vital Signs Vital signs: Temp Pulse Resp BP Pulse Ox 98.6 F 89 26 H 116/66 100 09/08/16 18:13 09/08/16 10:54 09/08/16 20:10 09/08/16 20:00 09/08/16 20:10 - Laboratory Laboratory results interpreted by me: 09/08/16 09/08/16 11:38 14:20 WBC 11.2 H RBC 3.83 L Hgb 11.2 L Hct 35.1 L MCHC 31.9 L RDW 16.8 H Absolute Neutrophils 8.4 H Sodium 132.9 L Potassium 3.1 L Chloride 97 L Creatinine 4.16 H Est GFR ( Amer) 17 L Est GFR (Non-Af Amer) 14 L Glucose 118 H Calcium 7.5 L Magnesium 1.3 L Total Bilirubin 1.5 H Direct Bilirubin 1.3 H Creatine Kinase 41 L Total Protein 5.7 L Albumin 2.5 L Discharge <YANELIS AQUINO - Last Filed: 09/08/16 18:13> <MILDRED BRADLEY - Last Filed: 09/08/16 20:16> - Discharge Clinical Impression: CKD (chronic kidney disease) stage V requiring chronic dialysis Altered mental status Qualifiers: Altered mental status type: disorientation Qualified Code(s): R41.0 - Disorientation, unspecified Head injury Qualifiers: Encounter type: initial encounter Qualified Code(s): S09.90XA - Unspecified injury of head, initial encounter Condition: Stable Disposition: [facility]
[2016-09-08] MEDS ORDERED: CEFTRIAXONE 1 GM/D5W RTU 50 ML IV ONE (18:12)
[2016-09-08] MEDS ORDERED: ONDANSETRON HCL INJ/PF 4 MG/2 ML SDV IV ONE (19:51)
[2016-09-08 20:41] VITALS: BP 137/75
[2016-09-08 21:08] LABS: APPEARANCE,URINE CLEAR; BILIRUBIN,URINE NEGATIVE (NEGATIVE); GLUCOSE, URINE NEGATIVE (NEGATIVE); KETONES,URINE NEGATIVE (NEGATIVE); LEUKOCYTE ESTERASE,URINE SMALL (NEGATIVE); NITRITE,URINE NEGATIVE (NEGATIVE); PROTEIN,URINE 30 mg/dL (NEGATIVE); URINE SPECIFIC GRAVITY 1.006; UROBILINOGEN,URINE NEGATIVE mg/dL (<2.0)
[2016-09-08 21:21] LABS: URINE BARBITURATES SCREEN NEGATIVE; URINE METHADONE SCREEN NEGATIVE; URINE OPIATES LOW UNCONFIRMED POSITIVE; URINE PHENCYCLIDINE SCREEN NEGATIVE
--- NOTE | 2016-09-09 09:26 | EKG REPORT ---
SEVERITY:- ABNORMAL ECG - SINUS RHYTHM LOW VOLTAGE IN FRONTAL LEADS BORDERLINE PROLONGED QT INTERVAL : Confirmed by: Jory Ulloa 09-Sep-2016 09:25:01
== END 2016-09-08 21:00 | disposition short-term general hospital (02) ==
LOC: ER 10:50
DX: S00.03XA Contusion of scalp, initial encounter (principal); S80.812A Abrasion, left lower leg, initial encounter; W19.XXXA Unspecified fall, initial encounter; R41.0 Disorientation, unspecified; I12.0 Hypertensive chronic kidney disease with stage 5 chronic kidney disease or end stage renal disease; N18.5 Chronic kidney disease, stage 5; Z99.2 Dependence on renal dialysis; R42 Dizziness and giddiness; R26.81 Unsteadiness on feet; R53.1 Weakness; R53.83 Other fatigue; R11.0 Nausea
CPT/HCPCS: 93005; 99285; 51701; 96375; 96365; 36415; 87040; 82553; 80307 ×2; 82140; 82550; 83735; 85025; 80053; 81001; 84484; 71020; 70450; 93010; J2405; J0696

== ENCOUNTER 2016-09-20 11:38 | Emergency (ER) | payer MEDICARE, OTHER ==
--- NOTE | 2016-09-20 12:00 | ER Document Report ---
ED General - General Mode of Arrival: Medic Information source: Patient TRAVEL OUTSIDE OF THE [place] IN LAST 30 DAYS: No - HPI Patient complains to provider of: Generalized weakness Onset: This morning Associated symptoms: Other - see notes above <DORIS LAGOS - Last Filed: 09/20/16 20:09> <TEMI COLUNGA - Last Filed: 09/20/16 20:10> - General Chief Complaint: General Weakness Stated Complaint: WEAKNESS Time Seen by Provider: 09/20/16 11:44 Notes: 66-year-old male with history of end-stage renal disease (dialyzed Friday, Friday, and Friday), cirrhosis, hypertension presents to the ED complaining of generalized weakness that started this morning. Patient reports that he "felt bad" and did not want to drive himself to dialysis this morning. Patient reports that he suffered a fall on September 03, 2016 and suffered a head injury. Patient was discharged home after this visit but returned on September 08, 2016 in an altered mental status and was transferred to [facility]. Patient reports that [facility] did not find any indication of a brain bleed, UTI, pneumonia, or OK. Patient reports feeling slightly better after leaving [facility] 3 days ago, but worsened over the next 3 days. Patient denies nausea, vomiting, diarrhea, chest pain, shortness of breath, headache, and blurry vision. Bottler: Dr. Billy. (DORIS LAGOS) - Related Data Allergies/Adverse Reactions: No Known Allergies Allergy (Verified 09/08/16 10:54) Past Medical History - General Information source: Patient - Social History Smoking Status: Current Every Day Smoker Chew tobacco use (# tins/day): No Frequency of alcohol use: quit Drug Abuse: None Family History: Reviewed & Not Pertinent - Past Medical History Cardiac Medical History: Reports: Hx Hypercholesterolemia, Hx Hypertension Renal/ Medical History: Reports: Hx End Stage Renal Disease, Hx Hemodialysis, Hx Kidney Stones. Denies: Hx Peritoneal Dialysis - HEMO GI Medical History: Reports: Hx Cirrhosis, Hx Gastroesophageal Reflux Disease Musculoskeltal Medical History: Reports Hx Arthritis, Reports Hx Gout Psychiatric Medical History: Denies: Hx Depression Past Surgical History: Reports: Hx Appendectomy, Hx Cholecystectomy, Hx Herniorrhaphy, Hx Orthopedic Surgery - B elbow, R wrist, Hx Vascular Surgery - Perm catheter for dialysis, Other - Cataract extraction - Immunizations Immunizations up to date: No Hx Diphtheria, Pertussis, Tetanus Vaccination: Yes Hx Pneumococcal Vaccination: 12/29/14 <DORIS LAGOS - Last Filed: 09/20/16 20:09> Review of Systems - Review of Systems Constitutional: See HPI, Recent illness - Fall on 09/03/2016 and altered mental status on 09/08/2016 EENT: No symptoms reported. denies: Blurred vision Cardiovascular: No symptoms reported. denies: Chest pain Respiratory: No symptoms reported. denies: Short of breath Gastrointestinal: No symptoms reported. denies: Diarrhea, Nausea, Vomiting Genitourinary: No symptoms reported Male Genitourinary: No symptoms reported Musculoskeletal: No symptoms reported Skin: No symptoms reported Hematologic/Lymphatic: No symptoms reported Neurological/Psychological: See HPI, Weakness. denies: Headaches -: Yes All other systems reviewed and negative <DORIS LAGOS - Last Filed: 09/20/16 20:09> Physical Exam <DORIS LAGOS - Last Filed: 09/20/16 20:09> <TEMI COLUNGA - Last Filed: 09/20/16 20:10> - Vital signs Vitals: Temp Pulse Resp BP Pulse Ox 98.5 F 95 23 H 158/69 H 100 09/20/16 13:42 09/20/16 13:42 09/20/16 13:42 09/20/16 13:42 09/20/16 13:42 - Notes Notes: GENERAL: Alert, interacts well. No acute distress. Cachectic appearing. HEAD: Normocephalic, atraumatic. EYES: Pupils equal, round, and reactive to light. Extraocular movements intact. ENT: Oral mucosa moist, tongue midline. NECK: Full range of motion. Supple. Trachea midline. LUNGS: Crackles to the left lower lobe. No wheezes, rales, or rhonchi. No respiratory distress. HEART: Regular rate and rhythm with an occasional skipped beat. No murmurs, gallops, or rubs. ABDOMEN: Soft, non-tender. Non-distended. Bowel sounds present in all 4 quadrants. EXTREMITIES: Moves all 4 extremities spontaneously. Radial and dorsalis pedis pulses 2/4 bilaterally. No cyanosis. Dialysis catheter to the right upper chest which is in good position. Left AC has a fistula with good thrill. 1+ pitting edema to the left leg and 2+ pitting edema to the right leg. NEUROLOGICAL: Alert and oriented x3. Normal speech. PSYCH: Normal affect, normal mood. SKIN: Warm and dry. Small superficial skin tear to the lateral aspect of the left lower extremity which is non-erythematous, but is seeping clear fluid. Non -infected abrasion inferior to the lateral aspect of the left lower extremity with no surrounding erythema, but is seeping clear fluid. (DORIS LAGOS) Course - Laboratory Result Diagrams: 09/20/16 12:10 09/20/16 12:10 - Consults Dr. Billy Time consulted: 13:15 <DORIS LAGOS - Last Filed: 09/20/16 20:09> - Laboratory Result Diagrams: 09/20/16 12:10 09/20/16 12:10 <TEMI COLUNGA - Last Filed: 09/20/16 20:10> - Re-evaluation Re-evalutation: 09/20/16 13:16 CBC shows chronic anemia without leukocytosis, platelets normal, INR slightly prolonged consistent with his history of liver disease, venous blood gas unremarkable, chemistries show chronic renal failure, chronic hyponatremia, normal potassium at 3.9, lactic acid is normal, chronically low calcium at 7.5, low albumin consistent with liver disease. Chest x-ray shows no pneumonia and no signs of fluid overload 09/20/16 13:[address] Billy, Dr. Billy has arranged for the patient to have dialysis at [facility] today as long as he is there before 2 PM. We have called a cab for the patient. Patient will be taken directly to dialysis via taxicab. Patient is being discharged as soon as his urinary catheter is done. I will follow-up on this and call in a prescription for an antibiotic and if it shows any abnormalities. 09/20/16 14:10 After discharge has already been arranged for the patient patient's daughter Carol called the emergency department on the patient's phone and asked to speak with me. Discussed the case with the patient's daughter, patient's daughter states that she disagrees with the discharge plan. Feels that a diagnosis of chronic kidney disease and 4+ pitting edema should meet admission criteria and she should be able to be admitted to the hospital. Discussed with patient that he only has 1+ pitting edema in 1 leg 2+ pitting edema in the upper leg and at the serous discharge is actually coming from 2 skin abrasions rather than the severity of the edema. Discussed the chronic kidney disease is not a reason for admission and that he does not have any pulmonary edema nor is there any oxygen requirement increased from baseline. Discussed that the treatment for edema and shortness of breath caused by chronic kidney disease is dialysis. Discussed with the patient's daughter that dialysis will not cure his chronic kidney or liver disease however it will help to alleviate some of the symptoms from the fluid overload. Again there is no indication for emergent dialysis at this time, daughter did ask me to list criteria for emergent dialysis so I did listen for her including hyperkalemia which the patient does not have and increased oxygen requirement which the patient does not have. Patient's daughter did express disagreement with the discharge plan once again, states she is concerned that a single dialysis session will not make him 100% better. I told the daughter that I do agree that a single dialysis session will not make him 100% better particularly if he continues to leave his dialysis sessions after 45 minutes other than staying for the full 3-4 hours that he needs. Daughter states that she is worried she will have to bring him back to the emergency department if he does not get better with dialysis. Discussed with patient that she is always welcome to bring him to the emergency department for reevaluation and we are always happy to see him again. Also offered to have 1 of my partners perform a second evaluation on the patient in the emergency department on this time at this time, patient's daughter did decline this offer states discharge him to dialysis and then if she is still concerned she will reassess him at home and take him to be reevaluated at a later time if she feels he needs it. 09/20/16 14:29 straight cath was performed, no urine obtained. (TEMI COLUNGA) - Vital Signs Vital signs: Temp Pulse Resp BP Pulse Ox 98.5 F 95 23 H 158/69 H 100 09/20/16 13:42 09/20/16 13:42 09/20/16 13:42 09/20/16 13:42 09/20/16 13:42 - Laboratory Laboratory results interpreted by me: 09/20/16 09/20/16 12:10 12:10 RBC 3.69 L Hgb 11.1 L Hct 34.1 L RDW 17.1 H Sodium 132.0 L Carbon Dioxide 20 L Creatinine 4.37 H Est GFR ( Amer) 16 L Est GFR (Non-Af Amer) 14 L Calcium 7.5 L Direct Bilirubin 0.7 H Total Protein 5.4 L Albumin 2.3 L - EKG Interpretation by Me Additional EKG results interpreted by me: 09/20/16 13:17 EKG shows sinus rhythm at a rate of 76 with occasional very brief pauses, followed by an ectopic atrial beat, normal axis, degree AV block, no ST segment elevation or depression, T-wave flattening is noted in aVL, no T-wave inversions per my interpretation. (TEMI COLUNGA) - Consults Dr. Billy Reason for consultation: 09/20/16 13:15 Patient was discussed with Dr. Billy who is in agreement that the patient needs dialysis and will arrange for it today. (DORIS LAGOS) Discharge <DORIS LAGOS - Last Filed: 09/20/16 20:09> <TEMI COLUNGA - Last Filed: 09/20/16 20:10> - Discharge Clinical Impression: Weakness, ESRD on hemodialysis Chronic kidney disease Qualifiers: Chronic kidney disease stage: on chronic dialysis Qualified Code(s): N18.6 - End stage renal disease Cirrhosis, alcoholic Qualifiers: Ascites presence: without ascites Qualified Code(s): K70.30 - Alcoholic cirrhosis of liver without ascites Condition: Stable Disposition: HOME, SELF-CARE Additional Instructions: Please go directly to dialysis. Do not leave dialysis early. If you get cold please ask for blanket. It is very important that you do not miss your dialysis sessions. This is what will help to make you feel better. Scribe Attestation: 09/20/16 20:10 I personally performed the services described in the documentation, reviewed and edited the documentation which was dictated to the scribe in my presence, and it accurately records my words and actions. (TEMI COLUNGA) Scribe Documentation - Scribe Written by Scribe:: Catherine Beal, 09/20/2016 1330 acting as scribe for :: Sheila <DORIS LAGOS - Last Filed: 09/20/16 20:09>
[2016-09-20 12:24] LABS: VENOUS BLOOD HCO3 25.6 mmol/L (20-32); VENOUS BLOOD PCO2 40.8 mmHg (35-63); VENOUS BLOOD PH 7.42 (7.30-7.42)
[2016-09-20 12:25] LABS: HEMATOCRIT 34.1 % (37.9-51.0); HEMOGLOBIN 11.1 g/dL (13.5-17.0); HGB HCT DIFFERENCE -0.8; MEAN CORPUSCULAR HGB CONC 32.5 g/dL (32.0-36.0); MEAN CORPUSCULAR VOLUME 92 fl (80-97); RED BLOOD COUNT 3.69 10^6/uL (4.35-5.55); RED CELL DISTRIBUTION WIDTH 17.1 % (11.5-14.0); WHITE BLOOD COUNT 9.2 10^3/uL (4.0-10.5)
[2016-09-20 12:28] LABS: PROTHROMBIN TIME 15.1 SEC (11.4-15.4)
--- NOTE | 2016-09-20 12:31 | RADIOLOGY REPORT (SQ) ---
EXAM DESCRIPTION: CHEST SINGLE VIEW COMPLETED DATE/TIME: 09/20/2016 12:18 pm REASON FOR STUDY: weakness, liver and kidney failure COMPARISON: Chest films 09/08/2016, 07/28/2016 EXAM PARAMETERS: NUMBER OF VIEWS: One view. TECHNIQUE: Single frontal radiographic view of the chest acquired. RADIATION DOSE: NA LIMITATIONS: None. FINDINGS: LUNGS AND PLEURA: No opacities, masses or pneumothorax. No pleural effusion. MEDIASTINUM AND HILAR STRUCTURES: No masses. Contour normal. HEART AND VASCULAR STRUCTURES: Heart normal in size. Normal vasculature. BONES: No acute findings. HARDWARE: Right jugular central venous dialysis catheter tip in the right atrium. OTHER: No other significant finding. IMPRESSION: NO ACUTE RADIOGRAPHIC FINDING IN THE CHEST. TECHNICAL DOCUMENTATION: JOB ID: [id number]
[2016-09-20 12:45] LABS: ALANINE AMINOTRANSFERASE 29 U/L (21-72); ALBUMIN 2.3 g/dL (3.5-5.0); ALKALINE PHOSPHATASE 98 U/L (38-126); ANION GAP 10 (5-19); ASPARTATE AMINO TRANSFERASE 31 U/L (17-59); BILIRUBIN,DIRECT 0.7 mg/dL (0.0-0.4); BILIRUBIN,TOTAL 0.9 mg/dL (0.2-1.3); BLOOD UREA NITROGEN 15 mg/dL (7-20); CALCIUM 7.5 mg/dL (8.4-10.2); CARBON DIOXIDE 20 mmol/L (22-30); CHLORIDE 102 mmol/L (98-107); CREATININE RESULT 4.37 mg/dL (0.52-1.25); GLUCOSE 92 mg/dL (75-110); POTASSIUM 3.9 mmol/L (3.6-5.0); TOTAL PROTEIN 5.4 g/dL (6.3-8.2)
[2016-09-20 12:46] LABS: BASOPHILS % (MANUAL) 1 % (0-2); EOSINOPHILS % (MANUAL) 2 % (0-6); LYMPHOCYTES % (MANUAL) 23 % (13-45); TOTAL CELLS COUNTED 100
[2016-09-20 12:47] LABS: ANISOCYTOSIS 1+; OVALOCYTES 1+; POIKILOCYTOSIS 1+; POLYCHROMASIA SLIGHT; TARGET CELLS 1+
[2016-09-20 13:43] VITALS: BP 158/69
--- NOTE | 2016-09-21 17:29 | EKG REPORT ---
SEVERITY:- ABNORMAL ECG - SINUS RHYTHM LOW VOLTAGE IN FRONTAL LEADS CONSIDER ANTEROSEPTAL INFARCT : Confirmed by: Jory Ulloa 21-Sep-2016 17:28:25
== END 2016-09-20 14:14 | disposition home or self-care (01) ==
LOC: ER 11:38
DX: R53.1 Weakness (principal); K70.30 Alcoholic cirrhosis of liver without ascites; I12.0 Hypertensive chronic kidney disease with stage 5 chronic kidney disease or end stage renal disease; N18.6 End stage renal disease; Z99.2 Dependence on renal dialysis; E78.00 Pure hypercholesterolemia, unspecified; F17.200 Nicotine dependence, unspecified, uncomplicated; Z87.442 Personal history of urinary calculi; Z90.49 Acquired absence of other specified parts of digestive tract
CPT/HCPCS: 36415; 51701; 71010; 80053; 82140; 82803; 83605; 85025; 85610; 87040; 93005; 93010; 99285

== ENCOUNTER 2016-09-25 15:01 | Observation (INO) | payer MEDICARE, OTHER ==
--- NOTE | 2016-09-25 15:15 | ER Document Report ---
ED General - General Stated Complaint: NOT FEELING WELL Time Seen by Provider: 09/25/16 15:15 TRAVEL OUTSIDE OF THE [place] IN LAST 30 DAYS: No - HPI Notes: Patient with h/o CKD (on dialysis M-W-F), HTN, CHF, Cirrhosis comes to the ED with daughter c/o generalized weakness/achiness. Daughter states that he could barely get out of bed this morning. When EMS arrived, they took him to dialysis. Daughter states that he was there for 1 hour and had to leave as he was feeling worse. Daughter did tell me that he fell yesterday on his butt and hurt his left thumb. Denies any head injury. Pt states that he just lost his footing and slid down to his butt. Pt states that there is not one particular area that is more painful than the rest aside from his thumb; otherwise, he just has generalized body ache. Pt states that he has been eating/drinking without any problems, but has had a dec in appetite. Daughter states he is still urinating as normal and went 4 times today and has been having regular BM' s. Pt does live by himself usually. He was seen 2 weeks ago by polo thomas for left leg infection which has been improving and being treated by a home health nurse. Pt also reports having a small bed sore to his coccyx area for a couple of weeks as well which has been about the same. Denies any fever, URI, sore throat, headache, dizziness, changes in mentation/speech/vision, cough, wheeze, sob, dyspnea, cp, palp, syncope, abd pain, n/v/d/c, melena, hematochezia , dysuria, hematuria, urinary retention, one sided paralysis/weakness. Pt ambulatory with walker assist usually and has been unable to ambulate today even with the walker assist. Daughter states that he was here on September 14 for similar symptoms and was discharged to dialysis/home. The attending provider at the time reviewed the case thoroughly with the daughter and Dr. Thorne (Nephro) was consulted and in agreement with their plan. Pt was at the time hemodynamically stable to be discharged. - Related Data Allergies/Adverse Reactions: No Known Allergies Allergy (Verified 09/25/16 15:13) Past Medical History - Social History Smoking Status: Current Every Day Smoker Family History: Reviewed & Not Pertinent - Past Medical History Cardiac Medical History: Reports: Hx Hypercholesterolemia, Hx Hypertension Denies: Hx Coronary Artery Disease, Hx Heart Attack Pulmonary Medical History: Denies: Hx Asthma, Hx Bronchitis, Hx COPD, Hx Pneumonia Neurological Medical History: Denies: Hx Cerebrovascular Accident, Hx Seizures Renal/ Medical History: Reports: Hx End Stage Renal Disease, Hx Hemodialysis, Hx Kidney Stones. Denies: Hx Peritoneal Dialysis - HEMO GI Medical History: Reports: Hx Cirrhosis, Hx Gastroesophageal Reflux Disease Musculoskeltal Medical History: Reports Hx Arthritis, Reports Hx Gout Psychiatric Medical History: Denies: Hx Depression Past Surgical History: Reports: Hx Appendectomy, Hx Cholecystectomy, Hx Herniorrhaphy, Hx Orthopedic Surgery - B elbow, R wrist, Hx Vascular Surgery - Perm catheter for dialysis, Other - Cataract extraction - Immunizations Immunizations up to date: No Hx Diphtheria, Pertussis, Tetanus Vaccination: Yes Hx Pneumococcal Vaccination: 12/29/14 Review of Systems - Review of Systems Notes: REVIEW OF SYSTEMS: CONSTITUTIONAL : Denies fever, chills, or sweats. Denies recent illness. EENT: Denies eye, ear, throat, or mouth pain or symptoms. Denies nasal or sinus congestion or discharge. Denies throat, tongue, or mouth swelling or difficulty swallowing. CARDIOVASCULAR: Denies chest pain. Denies palpitations or racing or irregular heart beat. Denies ankle edema. RESPIRATORY: Denies cough, cold, or chest congestion. Denies shortness of breath, difficulty breathing, or wheezing. GASTROINTESTINAL: Denies abdominal pain or distention. Denies nausea, vomiting , or diarrhea. Denies blood in vomitus, stools, or per rectum. Denies black, tarry stools. Denies constipation. GENITOURINARY: Denies difficulty urinating, painful urination, burning, frequency, blood in urine, or discharge. MUSCULOSKELETAL: see hpi SKIN: see hpi HEMATOLOGIC : see hpi LYMPHATIC: Denies swollen, enlarged glands. NEUROLOGICAL: Denies confusion or altered mental status. Denies passing out or loss of consciousness. Denies dizziness or lightheadedness. Denies headache. Denies weakness or paralysis or loss of use of either side, + generalized weakness. Denies problems with speech. Denies sensory loss, numbness, or tingling. Denies seizures. ALL OTHER SYSTEMS REVIEWED AND NEGATIVE. Dictation was performed using [employer] recognition software Physical Exam - Vital signs Vitals: Temp Pulse Resp BP Pulse Ox 98.8 F 86 22 H 149/84 H 94 09/25/16 15:13 09/25/16 15:13 09/25/16 15:13 09/25/16 15:13 09/25/16 15:13 Notes: PHYSICAL EXAMINATION: GENERAL: Well-appearing, thin/frail and in no acute distress. HEAD: Atraumatic, normocephalic. No banda sign EYES: Pupils equal round and reactive to light, extraocular movements intact, sclera anicteric, conjunctiva are normal. No raccoon eyes ENT: EAC clear b/l. TM's intact b/l without erythema, fluid, or perforation. Nares patent and without discharge. oropharynx clear without exudates. No tonsilar hypertrophy or erythema. Moist mucous membranes. No sinus tenderness. No hemotympanum/CSF discharge NECK: Normal range of motion, supple without lymphadenopathy. No rigidity/ meningismus. LUNGS: Breath sounds clear to auscultation bilaterally and equal. No wheezes rales or rhonchi. HEART: Regular rate and rhythm. + Murmur to the ?RSB-->neck (difficult to assess due to thin chest & exposed ribs not allowing diaphragm to fully adhere to skin). ABDOMEN: Soft, nontender, nondistended abdomen. No guarding, no rebound. No masses appreciated. Normal bowel sounds present. No CVA tenderness bilaterally. Musculoskeletal: Thumb: Ecchymosis noted, LROM, + tenderness. No scaphoid tenderness. left AC has good thrill. Non-tender to compression and manipulation of his hips/low back. Extremities: 2+ pitting edema b/l LE prox to knee. Peripheral pulses 1+. Capillary refill less than 3 seconds. NEUROLOGICAL: MMSE intact. Cranial nerves grossly intact. Normal speech. Normal sensory, motor exams. Reflexes 2+. Pronator drift neg. Unable to assess gait. PSYCH: Normal mood, flat affect. SKIN: small healing wound to the left anterior leg, clear d/c, non-tender. A 1cm mildly erythemic bed sore noted to coccyx without purulent discharge or streaks. + mild tenderness. Course - Re-evaluation Re-evalutation: 09/25/16 16:30 Dialysis nurse called to report that the patient has not been showing up to his scheduled dialysis sessions on a regular basis. He shows up randomly and usually not at all. When he does show up, he is only dialysized between 15- 45mins. Pt told the nurse there that he no longer wants to be doing dialysis treatments, but that his family is forcing him to. The nurse states that they were to have a meeting today b/w the social media editor, pt, and family to discuss these issues, but were not able to make it due to coming to the ED. 09/25/16 18:[address] Sevilla: Patient is an afebrile, well-hydrated, 66yo male with h/o CKD (on dialysis), HTN , CHF, and cirrhosis who presents with generalized weakness and left distal phalanx (thumb) fracture with mild displacement. Thumb spica placed and advised to seek f/u with Ortho for consult. Based on the general weakness work up, there is no admittable diagnosis- per Dr. Schreiber (hospitalist) despite the desire for the family to have him admitted for obs until the SNF referral gets completed. See showcase maker noted from today from out social media editor Silvano Perry. Reviewed with the family that they will have to figure out amongst themselves how they want to go about caring for the patient, as he lives alone. Readdressed that they should come to a conclusion and decisive answer on the patient's wishes and continuation of dialysis. Risks/benefits of dialysis were reviewed and the general prognosis of his situation. They may opt to get hospice care through their PCM if they decide to d/c treatments. I would like him to have a f/u with his PCM within the next few days as well as his Selling Manager. Return to the ED with any worsening/concerning symptoms otherwise. 09/25/16 19:17 Upon my last visit to see the patient/family for discharge plan, daughter became very upset about not being able to be admitted. She states that she was happy with the care he received in the ED, but is not happy that the hospitalist will not accept admit. Pt thinks it is now a burden on herself and that she cannot take care of her father as he lives by himself and does not have the room to have him at her house. Pt states that she cannot take care of him on her own as she risks injury to herself and to the patient. I empathized with the patient and tried to give her alternatives and ideas of how she could take care of him at her home, but patient declined wanting to perform any of those ideas. She demanded to speak with the hospitalist. I told her that she would have to speak with my attending Dr. Sevilla in lieu of the hospitalist which she agreed to. Reviewed with Dr. Sevilla again who will now speak with the pt/family. Throughout the discharge conversation, the patient was coherent and laying calmly, listening. Daughter went on to say to Dr. Sevilla that his speech is not his normal (this was the first it has come out even after H&P did no elicit this concern). We will now order a head CT and recheck with the night hospitalist (different provider) about possible admission. 09/25/16 20:32 CT of the head negative. Reviewed case with Dr. Ramírez (hospitalist) who will accept patient to Tele Obs with the option of full admit if pt decides to want to go to SNF. Reviewed ambulatory dysfunction, weakness, unable to perform ADL's (due to thumb fracture, weakness, lives alone), and is a high fall risk. Dr. Ramírez will come down to eval the patient. - Vital Signs Vital signs: Temp Pulse Resp BP Pulse Ox 98.8 F 88 22 H 165/75 H 97 09/25/16 15:13 09/25/16 18:00 09/25/16 18:00 09/25/16 18:00 09/25/16 18:00 - Laboratory Result Diagrams: 09/25/16 15:50 09/25/16 15:50 Laboratory results interpreted by me: 09/25/16 09/25/16 09/25/16 15:50 15:50 15:50 RBC 3.78 L Hgb 11.1 L Hct 34.2 L RDW 16.2 H Monocytes % 17.0 H PT 16.0 H VBG pH VBG pCO2 Sodium 136.0 L Potassium 3.3 L BUN 6 L Creatinine 2.97 H Est GFR ( Amer) 26 L Est GFR (Non-Af Amer) 21 L Calcium 7.6 L Direct Bilirubin 0.6 H Creatine Kinase 34 L Total Protein 5.2 L Albumin 2.2 L Urine Protein 09/25/16 09/25/16 16:10 16:14 RBC Hgb Hct RDW Monocytes % PT VBG pH 7.49 H VBG pCO2 34.9 L Sodium Potassium BUN Creatinine Est GFR ( Amer) Est GFR (Non-Af Amer) Calcium Direct Bilirubin Creatine Kinase Total Protein Albumin Urine Protein 30 H Procedures - Immobilization Left Distal Thumb Time completed: 19:15 Pre-Proc Neuro Vasc Exam: Normal Immobilizer type: Thumb spica Performed by: PCT Post-Proc Neuro Vasc Exam: Normal Discharge - Discharge Clinical Impression: Weakness, Ambulatory dysfunction, Impaired mobility and ADLs, Physical deconditioning Chronic kidney disease Qualifiers: Chronic kidney disease stage: on chronic dialysis Qualified Code(s): N18.6 - End stage renal disease Fracture of thumb, left, closed Qualifiers: Encounter type: initial encounter Phalanx: distal Fracture alignment: displaced Qualified Code(s): S62.522A - Displaced fracture of distal phalanx of left thumb, initial encounter for closed fracture Condition: Stable Disposition: ADMITTED OBSERVATION Admitting Provider: Hospitalist - Dr. Ramírez Unit Admitted: Telemetry Additional Instructions: Maintain adequate fluid/food intake Monitor urinary output along with BM's Take medications as directed Figure out as a family how you would like to care for each other and respect each other's wishes Continue dialysis as directed every [id number] if decided upon. Recheck with PCM and Selling Manager in the next few days as able. Return to the ED with any worsening symptoms and/or development of fever, changes in mentation/speech/vision, headache, chest pain, palpitations, syncope , shortness of breath, trouble breathing, abdominal pain, n/v/d, blood in stool/ urine, urinary retention, muscle weakness/paralysis, spasming, or other worsening symptoms that are concerning to you. Forms: Smoking Cessation Education Referrals: ROBERT SANDOVAL FNP [Primary Care Provider] - Follow up as needed LATIA THORNE MD [ACTIVE STAFF] - Follow up as needed
[2016-09-25 16:11] LABS: ABSOLUTE BASOPHILS # (AUTO) 0.1 10^3/uL (0.0-0.2); ABSOLUTE EOSINOPHILS # (AUTO) 0.1 10^3/uL (0.0-0.6); ABSOLUTE LYMPHOCYTES (AUTO) 1.8 10^3/uL (0.5-4.7); ABSOLUTE MONOCYTES (AUTO) 1.3 10^3/uL (0.1-1.4); ABSOLUTE NEUT (AUTO) 4.4 10^3/uL (1.7-8.2); BASOPHILS % (AUTO) 0.7 % (0-2); EOSINOPHILS % (AUTO) 0.8 % (0-6); HEMATOCRIT 34.2 % (37.9-51.0); HEMOGLOBIN 11.1 g/dL (13.5-17.0); HGB HCT DIFFERENCE -0.9; LYMPHOCYTES % (AUTO) 24.2 % (13-45); MEAN CORPUSCULAR HEMOGLOBIN 29.3 pg (27.0-33.4); MEAN CORPUSCULAR HGB CONC 32.4 g/dL (32.0-36.0); MEAN CORPUSCULAR VOLUME 90 fl (80-97); RED BLOOD COUNT 3.78 10^6/uL (4.35-5.55); RED CELL DISTRIBUTION WIDTH 16.2 % (11.5-14.0); SEGMENTED NEUTROPHILS % (AUTO) 57.3 % (42-78); WHITE BLOOD COUNT 7.6 10^3/uL (4.0-10.5)
[2016-09-25 16:24] LABS: ALANINE AMINOTRANSFERASE 31 U/L (21-72); ALBUMIN 2.2 g/dL (3.5-5.0); ALKALINE PHOSPHATASE 91 U/L (38-126); ANION GAP 9 (5-19); ASPARTATE AMINO TRANSFERASE 24 U/L (17-59); BILIRUBIN,DIRECT 0.6 mg/dL (0.0-0.4); BILIRUBIN,TOTAL 0.8 mg/dL (0.2-1.3); BLOOD UREA NITROGEN 6 mg/dL (7-20); CALCIUM 7.6 mg/dL (8.4-10.2); CARBON DIOXIDE 26 mmol/L (22-30); CHLORIDE 101 mmol/L (98-107); CREATINE KINASE 34 U/L (55-170); CREATININE RESULT 2.97 mg/dL (0.52-1.25); GLUCOSE 89 mg/dL (75-110); MAGNESIUM 1.6 mg/dL (1.6-2.3); POTASSIUM 3.3 mmol/L (3.6-5.0); TOTAL PROTEIN 5.2 g/dL (6.3-8.2)
[2016-09-25 16:25] LABS: VENOUS BLOOD BASE EXCESS 2.6 mmol/L; VENOUS BLOOD HCO3 25.8 mmol/L (20-32); VENOUS BLOOD PCO2 34.9 mmHg (35-63); VENOUS BLOOD PH 7.49 (7.30-7.42)
[2016-09-25 16:35] LABS: APPEARANCE,URINE CLEAR; BILIRUBIN,URINE NEGATIVE (NEGATIVE); GLUCOSE, URINE NEGATIVE (NEGATIVE); KETONES,URINE NEGATIVE (NEGATIVE); LEUKOCYTE ESTERASE,URINE NEGATIVE (NEGATIVE); NITRITE,URINE NEGATIVE (NEGATIVE); PROTEIN,URINE 30 mg/dL (NEGATIVE); URINE SPECIFIC GRAVITY 1.005; UROBILINOGEN,URINE NEGATIVE mg/dL (<2.0)
[2016-09-25 16:51] LABS: CREATINE KINASE MB 1.19 ng/mL (<4.55); TROPONIN I 0.013 ng/mL
--- NOTE | 2016-09-25 17:03 | RADIOLOGY REPORT (SQ) ---
EXAM DESCRIPTION: CHEST SINGLE VIEW COMPLETED DATE/TIME: 09/25/2016 4:47 pm REASON FOR STUDY: weakness COMPARISON: 09/20/2016 EXAM PARAMETERS: NUMBER OF VIEWS: One view. TECHNIQUE: Single frontal radiographic view of the chest acquired. RADIATION DOSE: NA LIMITATIONS: None. FINDINGS: LUNGS AND PLEURA: No opacities, masses or pneumothorax. No pleural effusion. MEDIASTINUM AND HILAR STRUCTURES: No masses. Contour normal. HEART AND VASCULAR STRUCTURES: Heart normal in size. Normal vasculature. BONES: No acute findings. HARDWARE: Right IJ tunneled hemodialysis catheter noted with tip in the right atrium. EKG leads over lie the chest. OTHER: No other significant finding. IMPRESSION: NO ACUTE RADIOGRAPHIC FINDING IN THE CHEST. No significant changes from the prior study . TECHNICAL DOCUMENTATION: JOB ID: [id number]
--- NOTE | 2016-09-25 17:06 | RADIOLOGY REPORT (SQ) ---
EXAM DESCRIPTION: FINGER LEFT COMPLETED DATE/TIME: 09/25/2016 4:47 pm REASON FOR STUDY: Left thumb pain s/p fall COMPARISON: None. NUMBER OF VIEWS: Three views. TECHNIQUE: AP, lateral, and oblique images acquired of the left thumb. LIMITATIONS: None. FINDINGS: MINERALIZATION: Osteopenia. BONES: There is irregularity at the proximal portion of the distal phalanx of the thumb concerning fo r minimally displaced fracture. No other definite fractures are identified degenerative changes note d at the thumb base and in the interphalangeal joint spaces. SOFT TISSUES: There is soft tissue swelling about the thumb. No radiopaque foreign body. OTHER: Vascular calcifications. IMPRESSION: Minimally displaced fracture involving the proximal portion of the distal phalanx of the left thumb. No other fractures identified. Osteopenia. COMMENT: SITE OF TRAUMA/COMPLAINT MARKED/STAMP COMPLETED: NO. TECHNICAL DOCUMENTATION: JOB ID: [id number] [employer]- All Rights Reserved
--- NOTE | 2016-09-25 20:17 | RADIOLOGY REPORT (SQ) ---
EXAM DESCRIPTION: CT HEAD WITHOUT COMPLETED DATE/TIME: 09/25/2016 8:06 pm REASON FOR STUDY: possible slurring of speech COMPARISON: 09/08/2016 TECHNIQUE: Axial images acquired through the brain without intravenous contrast. Images reviewed wi th bone, brain and subdural windows. Images stored on PACS. All CT scanners at this facility use dose modulation, iterative reconstruction, and/or weight based d osing when appropriate to reduce radiation dose to as low as reasonably achievable (ALARA). [facility]: Dose Right [facility]: CareDose [facility]: Dose Right [facility]: Teradose 4D [facility]: Dropcam RADIATION DOSE: 64.61mGy. LIMITATIONS: None. FINDINGS: VENTRICLES: Prominent. CEREBRUM: No masses. No hemorrhage. No midline shift. Areas of low density in the white matter mos t likely due to chronic micro-vascular ischemic change. No evidence for acute infarction. CEREBELLUM: No masses. No hemorrhage. No alteration of density. No evidence for acute infarction. EXTRAAXIAL SPACES: Age-related involutional change. No fluid collections. No masses. ORBITS AND GLOBE: No intra- or extraconal masses. Normal contour of globe without masses. CALVARIUM: No fracture. PARANASAL SINUSES: No fluid or mucosal thickening. SOFT TISSUES: No mass or hematoma. OTHER: No other significant finding. IMPRESSION: Chronic ischemic changes. TECHNICAL DOCUMENTATION: JOB ID: [id number] Quality ID # [id number]: Final reports with documentation of one or more dose reduction techniques (e.g., Au tomated exposure control, adjustment of the mA and/or kV according to patient size, use of iterative reconstruction technique) 2010 [employer]- All Rights Reserved
[2016-09-25 20:39] LABS: ADD ON TESTING BLD IN LAB ACKNOWLEDGE
[2016-09-25 21:00] LABS: ALCOHOL < 10 mg/dL (NONE DETECTED)
[2016-09-25 21:06] LABS: URINE BARBITURATES SCREEN NEGATIVE; URINE METHADONE SCREEN NEGATIVE; URINE OPIATES LOW UNCONFIRMED POSITIVE; URINE PHENCYCLIDINE SCREEN NEGATIVE
[2016-09-25] MEDS ORDERED: ACETAMINOPHEN 325 MG TABLET PO PRN (22:01)
[2016-09-25] MEDS ORDERED: PROMETHAZINE HCL 25 MG TABLET PO PRN (22:04)
--- NOTE | 2016-09-25 22:39 | PDOC H&P ---
History of Present Illness Admission Date/PCP: 09/25/16 20:46 ROBERT SANDOVAL, DRE Nephro [facility] Pain MGT. Patient complains of: weakness, not feeling well History of Present Illness: DANIEL MAGUIRE JR is a 66 year old male, with reported noncompliance with Friday hemodialysis sessions, and with a recent history of only partial dialysis sessions due to generalized weakness and "not feeling well." Please refer to emergency room nurse practitioner notes concerning same. Was only able to tolerate approximately 1 hour of dialysis today when he was brought to the emergency room for above complaints. Denies nausea vomiting, fever or chills, diarrhea or dysuria, chest or abdominal pain. Complains of hurting "all over," but in particular his left thumb which he fractured yesterday when he lost his footing and fell backwards on his butt. Did not strike his head. No loss of consciousness. X-rays reveal a closed fracture of the left thumb. Thumb spica splint has been applied. Daughter describes an acute worsening in his overall weakness over the last day or so. Lives alone. Normally ambulates with a walker, but due to his thumb fracture and generalized weakness is basically nonambulatory at present. For a number of reasons, including his pack-a-day smoking, and family members with asthma, he and family are seeking admission to [facility]. Patient is comfortable with this. Patient has been discussed with emergency room nurse practitioner who evaluated the patient. Recently hospitalized at [facility] for what sounds to be cellulitis from an abrasion to his left lower leg. Daughter states site is healing quite nicely. Home health coming several times a week for examination and dressing change.. Laboratory results are listed in [employer] and are reviewed. X-ray summary results are listed below, with full report(s) reviewed. . EKG reviewed and compared to tracing from the of this month. Social history/personal habits: . Lives alone. Has children. Retired. Pack of cigarettes per day. No alcohol for the last 3-4 years. No illicit drug use. No known drug allergies. Home medications initially autopopulated into [employer] may not accurately reflect patient's true medications, dosages, and/or frequencies. 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 Unfortunately, patient not certain of all medications/dosages/frequencies. REVIEW OF SYSTEMS: Constitutional: No fever or chills. See history and present illness. Eyes: Wears glasses ENT: No swallowing problems or complaints. Denies hearing loss. Pulmonary: No current complaints. Cardiovascular: No current complaints, including chest pain. Gastrointestinal: No current complaints, including nausea or vomiting. Skin: No current complaints, including rashes. Hematologic: Easy bruising. Neurologic: No current complaints, including numbness or tingling. Musculoskeletal: Chronic joint pain from arthritis. See history and present illness. Psychiatric: Anxiety Endocrine: No current complaints, including polyuria. Genitourinary: No current complaints, including dysuria. PHYSICAL EXAMINATION: 5 feet 9 inches tall. 59.4 kg. BMI 19.3 kg/m. Blood pressure 153/72. Pulse 86 and regular. 96% saturation on room air. Respirations are 24 and unlabored. Temperature 98.8. Thin chronically ill-appearing male who appears a number of years older than his stated age. Somewhat fatigued, but otherwise awake alert pleasant and cooperative. Mildly anxious, without agitation. Daughter and ex- are present at his side; patient approves. Skin is warm and dry. No grossly obvious evidence of rash in areas of skin examined. No subcutaneous nodules palpated. Very small almost completely healed abrasion on the lateral aspect of his left lower leg. No evidence of secondary infection of same. ENT: Hearing grossly normal to normal conversation. Tongue midline on protrusion pink and slightly tacky. Eyes: No scleral icterus. Pupils equal and reactive to light at 4 mm. [place] conjunctivae. No raccoon eyes. Neck is supple and nontender to gentle active range of motion and palpation. Midline trachea. No palpable thyroid nodule mass enlargement or tenderness. Lymphatic: No palpable cervical or clavicular nodes. Psychiatric: Reasonable insight into acute and chronic medical issues. Oriented to time location and why here. Lungs: Auscultation reveals clear and equal breath sounds bilaterally. No use of accessory respiratory muscles. Cardiovascular: Heart regular rate and rhythm, without gallop murmur or rub. No carotid or abdominal aortic bruits. No ankle or pedal edema. Faintly palpable dorsalis pedis pulses. Abdomen:soft nontender with positive bowel sounds. No upper abdominal mass or organomegaly palpated. Extremities: Feet are warm and dry. No calf tenderness to compression. No grossly obvious visual evidence of calf swelling. Gentle manipulation of lower extremities fails to reveal any obvious evidence of injury or instability to knees hips or ankles. Examination of left upper extremity limited due to thumb spica cast with associated Chele wrap. Neurologic: Cranial Nerves II through XII are grossly intact. Light touch intact at face, upper and lower extremities, with left upper extremity limitations as noted above. Motor function of major muscle groups upper and lower extremities 5 over 5 and symmetric. Patellar reflexes absent. Absent Babinski. No nystagmus. Past Medical History Cardiac Medical History: Reports: Congestive Heart Failure, Hypertension Denies: Coronary Artery Disease, DVT, Myocardial Infarction, Hyperlipidema, Pulmonary Embolism Pulmonary Medical History: Denies: Asthma, Bronchitis, Chronic Obstructive Pulmonary Disease (COPD), Pneumonia, Sleep Apnea EENT Medical History: Reports: Eyes - Glasses Denies: Ears, Throat Neurological Medical History: Denies: Hemorrhagic CVA, Ischemic CVA, Seizures Endocrine Medical History: Denies: Diabetes Mellitus Type 1, Diabetes Mellitus Type 2, Hyperthyroidism, Hypothyroidism Renal/ Medical History: Reports: End Stage Renal Disease Malignancy Medical History: Reports: Skin Cancer GI Medical History: Reports: Cirrhosis, Gastroesophageal Reflux Disease, Peptic Ulcer Disease - Distant history of same, Other - Irritable bowel syndrome Musculoskeltal Medical History: Reports: Arthritis, Gout Psychiatric Medical History: Reports: General Anxiety Disorder, Tobacco Dependency Denies: Alcohol Dependency, Depression, Substance Abuse Hematology: Reports: Other - Easy bruising Denies: Anemia Infectious Medical History: Denies: Clostridium Difficile, Methicillin-Resistant Staph Aureus Past Surgical History Past Surgical History: Reports: Appendectomy, Cholecystectomy, Herniorrhaphy, Orthopedic Surgery - B elbow, R wrist, Vascular Surgery - Perm catheter for dialysis; fistula formation, maturing, for dialysis., Other - Cataract extraction Social History Information Source: Patient, Emergency Med Personnel, [facility] Records Lives with: Alone Smoking Status: Current Every Day Smoker Frequency of Alcohol Use: None Hx Recreational Drug Use: No Drugs: None Hx Prescription Drug Abuse: No - Advance Directive Resuscitation Status: Do Not Resuscitate Surrogate healthcare decision maker:: Daughter Lashell Maguire Family History Family History: Reviewed & Not Pertinent Parental Family History Reviewed: Yes - Mother of breast cancer, father of cirrhosis. Children Family History Reviewed: Yes - Healthy Sibling(s) Family History Reviewed.: Yes - Uncertain health status of siblings. Medication/Allergy Home Medications: Dexlansoprazole [Dexilant 60 mg Capsule] 60 mg PO DAILY 09/27/16 Dicyclomine HCl [Bentyl 10 mg Capsule] 10 mg PO Q12 09/27/16 Hydromorphone HCl [Dilaudid] 4 mg PO Q6HP PRN 09/27/16 Isosorbide Mononitrate [Isosorbide Mononitrate ER] 30 mg PO QAM 09/27/16 Lorazepam [Ativan 0.5 mg Tablet] 0.5 mg PO MOWEFR 09/27/16 Megestrol Acetate [Megace] 400 mg PO DAILY 09/27/16 RX: Amlodipine Besylate 10 mg PO DAILY 09/27/16 RX: Zolpidem Tartrate 5 mg PO HSP PRN 09/27/16 Aspirin [Ecotrin 81 mg EC Tablet] 81 mg PO DAILY 09/28/16 Bumetanide [Bumex 2 mg Tablet] 2 tab PO DAILY 09/28/16 Clonidine [Catapres-TTS 2 (0.2 mg/day) TD Patch] 1 patch TD BID 09/28/16 Clonidine [Catapres-TTS 2 (0.2 mg/day) TD Patch] 1 patch TD QPM 09/28/16 Colchicine [Colchicine 0.6 mg Tablet] 0.6 mg PO DAILY PRN 09/28/16 Ergocalciferol (Vitamin D2) [Vitamin D2] 50,000 unit PO FR@10 09/28/16 Nicotine [Nicoderm 21 mg/24 Hr Transderm Patch] 1 patch TD DAILY 09/28/16 Ondansetron HCl [Zofran 4 mg Tablet] 1 tab PO Q6HP PRN 09/28/16 Allergies/Adverse Reactions: No Known Allergies Allergy (Verified 09/25/16 15:13) Physical Exam Vital Signs: Temp Pulse Resp BP Pulse Ox 98.8 F 79 20 154/82 H 97 09/25/16 15:13 09/25/16 21:59 09/25/16 21:59 09/25/16 21:59 09/25/16 21:59 Results Laboratory Results: 09/25/16 21:08 09/25/16 21:08 Potassium 3.5 L 09/25/16 21:08 Troponin I 0.014 Impressions: Chest X-Ray 09/25/16 15:50 IMPRESSION: NO ACUTE RADIOGRAPHIC FINDING IN THE CHEST. No significant changes from the prior study. Finger X-Ray 09/25/16 16:05 IMPRESSION: Minimally displaced fracture involving the proximal portion of the distal phalanx of the left thumb. No other fractures identified. Osteopenia. Head CT 09/25/16 19:34 IMPRESSION: Chronic ischemic changes. Assessment & Plan - Diagnosis (1) DNR (do not resuscitate) Is this a current diagnosis for this admission?: YesPlan: Implications of DO NOT RESUSCITATE/DO NOT INTUBATE status discussed with patient. Discussed in layperson's terms. Implications understood. Patient is the health care decision maker. Patient conversation is lucid and appropriate. Patient desires DO NOT RESUSCITATE/DO NOT INTUBATE status. Will honor patient wishes. Daughter and ex- present and concur with above. (2) Abrasion of left lower leg Qualifiers: Encounter type: initial encounter Qualified Code(s): S80.812A - Abrasion, left lower leg, initial encounter Is this a current diagnosis for this admission?: YesPlan: Appears to be healing nicely. Dressing change orders have been entered. (3) Ambulatory dysfunction Is this a current diagnosis for this admission?: YesPlan: Physical therapy consult. Strongly encouraged patient not to get out of bed without notifying staff to avoid another fall with further injury. Fall precautions. (4) Chronic kidney disease Qualifiers: Chronic kidney disease stage: on chronic dialysis Qualified Code(s): N18.6 - End stage renal disease; Z99.2 - Dependence on renal dialysis Is this a current diagnosis for this admission?: YesPlan: Nephrology consult. (5) Fall Qualifiers: Encounter type: initial encounter Qualified Code(s): W19.XXXA - Unspecified fall, initial encounter Is this a current diagnosis for this admission?: Yes (6) Fracture of thumb, left, closed Qualifiers: Encounter type: initial encounter Phalanx: distal Is this a current diagnosis for this admission?: YesPlan: Thumb spica splint/cast, placed in the emergency room by ER staff, to remain in place. Orthopedics consult. (7) Generalized weakness Is this a current diagnosis for this admission?: YesPlan: Dietary consult. Patient and family interested in his being admitted to [facility] for inpatient short-term rehab, with eventual plans to return to home. Discharge planning consult. Daughter understands that if confusion is a problem at home, it will probably worsen while he is in the hospital. Knee high SCD, right lower extremity only, with the left lower extremity abrasion, along with subcutaneous heparin. Impression and plans were discussed with patient, daughter, and ex-, all of whom concur. Time spent in evaluation and management of patient: 65 minutes. (8) Hypokalemia Is this a current diagnosis for this admission?: YesPlan: Repeat chemistry, with potassium replacement as needed. - Inpatient Certification Based on my medical assessment, after consideration of the patient's comorbidities, presenting symptoms, or acuity I expect that the services needed warrant INPATIENT care.: Yes I certify that my determination is in accordance with my understanding of Medicare's requirements for reasonable and necessary INPATIENT services [42 CFR 412.3e].: Yes Medical Necessity: Significant Comorbidiites Make Outpatient Treatment Too Risky , Need Close Monitoring Due to Risk of Patient Decompensation, Need For Continuous Telemetry Monitoring, Risk of Complication if Not Cared For in Hospital Post Hospital Care: D/C or Transfer Summary
[2016-09-26] MEDS ORDERED: NICOTINE 7 MG/24 HR PATCH.TD24 TD PRN (00:29)
[2016-09-26 07:19] LABS: ABSOLUTE BASOPHILS # (AUTO) 0.1 10^3/uL (0.0-0.2); ABSOLUTE EOSINOPHILS # (AUTO) 0.1 10^3/uL (0.0-0.6); ABSOLUTE LYMPHOCYTES (AUTO) 1.9 10^3/uL (0.5-4.7); ABSOLUTE MONOCYTES (AUTO) 1.3 10^3/uL (0.1-1.4); ABSOLUTE NEUT (AUTO) 4.1 10^3/uL (1.7-8.2); BASOPHILS % (AUTO) 1.1 % (0-2); EOSINOPHILS % (AUTO) 1.2 % (0-6); HEMOGLOBIN 12.4 g/dL (13.5-17.0); HGB HCT DIFFERENCE -1.8; LYMPHOCYTES % (AUTO) 25.2 % (13-45); MEAN CORPUSCULAR HEMOGLOBIN 29.2 pg (27.0-33.4); MEAN CORPUSCULAR HGB CONC 31.8 g/dL (32.0-36.0); MEAN CORPUSCULAR VOLUME 92 fl (80-97); MONOCYTES % (AUTO) 17.1 % (3-13); RED BLOOD COUNT 4.25 10^6/uL (4.35-5.55); RED CELL DISTRIBUTION WIDTH 16.6 % (11.5-14.0); SEGMENTED NEUTROPHILS % (AUTO) 55.4 % (42-78); WHITE BLOOD COUNT 7.4 10^3/uL (4.0-10.5)
[2016-09-26 07:25] LABS: ANION GAP 10 (5-19); BLOOD UREA NITROGEN 7 mg/dL (7-20); CALCIUM 7.8 mg/dL (8.4-10.2); CARBON DIOXIDE 24 mmol/L (22-30); CHLORIDE 103 mmol/L (98-107); CREATININE RESULT 3.31 mg/dL (0.52-1.25); GLUCOSE 102 mg/dL (75-110); POTASSIUM 3.7 mmol/L (3.6-5.0); SODIUM 137.2 mmol/L (137-145)
[2016-09-26] MEDS: DOCUSATE SODIUM 100 MG CAPSULE PO SCH ×2 (09:48→17:00)
[2016-09-26] MEDS: HEPARIN SOD (PORCINE) 5,000 UNIT/ML 1 ML SYRINGE SUBCUT SCH ×2 (09:55→23:03)
--- NOTE | 2016-09-26 14:09 | PROGRESS NOTE E ---
Progress Note NAME: DANIEL MAGUIRE : 1950 AGE: 66Y DATE: 09/26/2016 ROOM: 424 SUBJECTIVE: The patient is out of bed to the bedside chair. He states that he wants to go home. The only complaint he has is thumb pain. The patient denies any nausea, vomiting, diarrhea. No shortness of breath, dizziness, chest pain. No fevers, chills. The patient has been afebrile. Blood pressure has been in a good range, and the patient does not voice any other concerns at this time. REVIEW OF SYSTEMS: Rest of review of systems negative. MEDICATIONS: Medications have been reviewed. OBJECTIVE: GENERAL: Patient is a 66-year-old male who is awake, alert. He is oriented to person, place, time, and situation. He is verbal, conversational, does not appear to be in any acute distress. VITAL SIGNS: Temperature is 98.4, pulse 79, respirations 16, blood pressure 164/75, oxygen saturation 100% on room air. SKIN: Warm and dry. No rash. Not diaphoretic. HEENT: Pupils equal, round, reactive to light and accommodation. Conjunctiva is pale. There is no JVP. CARDIOVASCULAR SYSTEM: Heart is regular. There is no murmur or rub. CHEST: Clear, symmetrical, unlabored. ABDOMEN: Soft, nontender, nondistended. BACK: No CVA tenderness or sacral edema. EXTREMITIES: No clubbing, cyanosis, edema. PSYCHIATRIC: Appropriate affect, pleasant mood. DIAGNOSTICS: Lab values are as follows: Hematology obtained on 09/26/2016: WBC 7.4, hemoglobin is 12.4, hematocrit is 39.0, platelet count is 210,000. Chemistry obtained on 09/26/2016: Sodium is 137, potassium 3.7, chloride is 103, carbon dioxide 24, BUN 7, creatinine is 3.31, glucose 102, calcium is 7.8. Blood cultures obtained on 09/25/2016 are pending. Urine culture obtained on 09/25/2016 reveals no growth. IMPRESSION AND PLAN: 1. GENERAL DEBILITY STATUS POST FALL. The patient is recommended for rehab placement. Social work has been consulted. The patient has had qualifying inpatient stay at [facility]. 2. CLOSED LEFT THUMB FRACTURE, CURRENTLY MOBILIZED. Do appreciate Orthopedic input on this. 3. CHRONIC KIDNEY DISEASE STAGE 6 ON HEMODIALYSIS. The patient currently dialyzes with Dr. Beach, his charger. 4. ANEMIA OF CHRONIC DISEASE. Patient's hemoglobin overall is stable. 5. HYPERTENSION. Blood pressure has been in a good condition. Will continue current medications. 6. CORONARY ARTERY DISEASE. Will continue the patient's home medications. DISPOSITION: Patient is a DO NOT RESUSCITATE, DO NOT INTUBATE. Pending patient's symptomatology and diagnostic findings, will re-evaluate in the a.m. The patient can go to [place] as soon as a bed is available. Time spent on this followup including assessment, plan, physical examination, patient education, and family meeting is 25 minutes. DICTATING PHYSICIAN: SHADIA CARSON NP [id number] PHY#: [id number] ID: [id number] JOB#: [id number] ACCT: [id number] cc: >
--- NOTE | 2016-09-26 19:46 | PDOC CONSULTATION ---
Consultation Consult Date: 09/26/16 Attending physician:: MANUEL CARSON Consult reason:: I was asked by the hospitalist service, nurse practitioner Manuel Carson to see this patient supervise hemodialysis while here in the hospital. History of Present Illness Admission Date/PCP: 09/25/16 20:46 DRE BURKS History of Present Illness: DANIEL MAGUIRE JR is a 66 year old male, known to me with history of end-stage renal disease supposedly on hemodialysis on Wednesdays and Fridays, essential hypertension, liver cirrhosis, who was admitted yesterday because of generalized body aches and weakness. Patient has been noncompliant with Friday hemodialysis sessions, and with a recent history of only partial dialysis sessions due to generalized weakness and "not feeling well." He also complains of feeling cold during dialysis so he ends up only doing his treatments anywhere between 20 minutes to 45 minutes for the last 1-2 months. Yesterday I saw him during dialysis and about 45 minutes into dialysis he requested to sign signed out AGAINST MEDICAL ADVICE to be off dialysis. Subsequently he called his daughter and requested to go to the emergency room for above complaints. I tried to encourage him to stay during the dialysis treatment but to no avail he still signed AMA. Denies nausea vomiting, fever or chills, diarrhea or dysuria, chest or abdominal pain. Complains of hurting "all over," but in particular his left thumb which she fractured 2 days ago when he lost his footing and fell backwards on his butt. Did not strike his head. No loss of consciousness. X-rays reveal a closed fracture of the left thumb. Thumb spica splint has been applied. Daughter describes an acute worsening in his overall weakness over the last day or so. Lives alone. Normally ambulates with a walker, but due to his thumb fracture and generalized weakness is basically nonambulatory at present. The patient's overall condition is actually been worsening for the last 1-2 months when he started cutting his dialysis treatment short. I and the rest of the dialysis staff had multiple conversations with the patient and his family including daughter questioned regarding importance of completing the treatment. However the patient continues to be noncompliant as above. For a number of reasons, including his pack-a-day smoking, and family members with asthma, he and family are seeking admission to [facility]. Patient is comfortable with this. I confirmed this with patient today. Recently hospitalized [facility] for what sounds to be cellulitis from an abrasion to his left lower leg. Daughter states he is healing quite nicely. Home health coming several times a week for examination and dressing change. Today I reiterated to the patient that if he wants to continue dialysis he would need to stay on this treatment so that he will be adequately dialyzed. I emphasized the patient is only staying on dialysis for less than an hour then it is like not getting dialyzed at all. I told the patient that if he does not do his dialysis treatment completely I have nothing else to offer in terms of treatment. Patient understood that very well. He then told me that he knows that without dialysis the inevitable will happen which means and dying which he is very much aware of. He told me he is not ready to quit dialysis yet and will try to stay in treatment. He told me he is not ready for hospice yet. He also confirmed to me what he told the other doctors yesterday to have a CODE STATUS of DO NOT RESUSCITATE. Past Medical History Cardiac Medical History: Reports: CHF-Diastolic, Hypertension-primary, Pulmonary Hypertension EENT Medical History: Reports: Eyes - Glasses Neurological Medical History: Reports: Other - History of lumbar disc herniation with chronic back pain on chronic pain medications by pain management. Renal/ Medical History: Reports: End Stage Renal Disease, Hyperphosphatemia, Proteinuria Malignancy Medical History: Reports: Skin Cancer GI Medical History: Reports: Cirrhosis, Gastroesophageal Reflux Disease, Peptic Ulcer Disease - Distant history of same, Other - Irritable bowel syndrome Musculoskeltal Medical History: Reports: Arthritis, Gout Psychiatric Medical History: Reports: Depression, General Anxiety Disorder, Tobacco Dependency Hematology Medical History: Reports Anemia of Chronic Kidney Disease, Reports Iron Deficiency Anemia Past Surgical History Past Surgical History: Reports: Appendectomy, Cholecystectomy, Cystostomy - With insertion of ureteral stent, subsequently removed., Dialysis Access Surgery AVF, Herniorrhaphy, Orthopedic Surgery - B elbow, R wrist, Vascular Surgery - Perm catheter for dialysis; fistula formation, maturing, for dialysis. , Other - Cataract extraction Social History Information Source: Patient Lives with: Alone Smoking Status: Current Every Day Smoker Cigarettes Packs Per Day: 2 Frequency of Alcohol Use: None Hx Recreational Drug Use: No Drugs: None Hx Prescription Drug Abuse: No - Advance Directive Resuscitation Status: Do Not Resuscitate Family History Family History: Malignancy - Breast cancer on his mother, Other - Cirrhosis on his father Parental Family History Reviewed: Yes Children Family History Reviewed: Yes Sibling(s) Family History Reviewed.: Yes Medication/Allergy Home Medications: Amlodipine Besylate [Norvasc 10 mg Tablet] 10 mg PO DAILY 07/29/16 Aspirin [Aspirin EC] 81 mg PO DAILY 07/29/16 Bumetanide [Bumex 2 mg Tablet] 2 mg PO DAILY 07/29/16 Clonidine HCl [Catapres 0.2 mg Tablet] 0.2 mg PO DAILY 07/29/16 Colchicine [Colchicine 0.6 mg Tablet] 0.6 mg PO DAILYP PRN 07/29/16 Ergocalciferol (Vitamin D2) [Vitamin D2] 1.25 mg PO DAILY 07/29/16 Hydromorphone HCl [Dilaudid 2 mg Tablet] 2 mg PO Q6HP PRN 07/29/16 Isosorbide Mononitrate [Imdur 30 mg Tablet.er] 30 mg PO DAILY 07/29/16 Megestrol Acetate [Megace] 10 ml PO DAILY 07/29/16 Ranitidine HCl [Zantac 150 mg Tablet] 150 mg PO BID 07/29/16 Allergies/Adverse Reactions: No Known Allergies Allergy (Verified 09/25/16 15:13) Review of Systems All systems: reviewed and no additional remarkable complaints except as stated Review of Systems: Constitutional: ABSENT: chills, fever(s), headache(s), weight gain; admits weight loss, generalized weakness and fatigue Eyes: ABSENT: visual disturbances Ears: ABSENT: hearing changes Cardiovascular: ABSENT: chest pain, dyspnea on exertion, orthropnea, palpitations; admits edema for the last 2 weeks Respiratory: ABSENT: cough, dyspnea, hemoptysis Gastrointestinal: ABSENT: abdominal pain, constipation, diarrhea, hematemesis, hematochezia, nausea, vomiting Genitourinary: ABSENT: dysuria, hematuria; he still makes minimal urine Musculoskeletal: ABSENT: joint swelling Integumentary: ABSENT: rash, wounds Neurological: ABSENT: abnormal gait, abnormal speech, confusion, dizziness, focal weakness, numbness, syncope Psychiatric: ABSENT: anxiety, depression Endocrine: ABSENT: Heat intolerance, polydipsia, polyuria; admits cold intolerance Hematologic/Lymphatic: ABSENT: easy bleeding, easy bruising, lymphadenopathy Physical Exam Vital Signs: Temp Pulse Resp BP Pulse Ox 98.5 F 74 20 149/62 H 100 09/26/16 16:50 09/26/16 16:50 09/26/16 16:50 09/26/16 16:50 09/26/16 16:50 Intake & Output 09/25/16 09/26/16 09/27/16 06:59 06:59 06:59 Intake Total 0 495 Output Total 100 Balance -100 495 Exam: General appearance: no acute distress, cooperative, cachectic and ill looking Head exam: PRESENT: atraumatic, normocephalic Eye exam: PRESENT: Conjunctiva pale, EOMI, PERRLA. ABSENT: conjunctival injection, scleral icterus Mouth exam: PRESENT: moist, neck supple, tongue midline Neck exam: PRESENT: full ROM. ABSENT: carotid bruit, JVD, lymphadenopathy, thyromegaly Respiratory exam: PRESENT: Diminished to auscultation bilaterally. ABSENT: rales, rhonchi, stridor, wheezes Cardiovascular exam: PRESENT: Irregularly irregular, +S1, +S2. ABSENT: systolic murmur Pulses: PRESENT: normal radial pulses, normal dorsalis pedis pulses GI/Abdominal exam: PRESENT: normal bowel sounds, soft. ABSENT: guarding, mass, tenderness Rectal exam: deferred Extremities exam: PRESENT: full ROM. Grade 1 bilateral pitting edema right greater than the left ABSENT: calf tenderness Musculoskeletal: PRESENT: full ROM. ABSENT: deformity Neurological exam: PRESENT: alert, Awake, Oriented to person, Oriented to place , Oriented to time, reflexes normal, CN II-XII grossly intact. ABSENT: motor sensory deficit Psychiatric exam: PRESENT: appropriate affect, normal mood. ABSENT: homicidal ideation, suicidal ideation Skin exam: PRESENT: intact, dry, warm. ABSENT: rash Results Laboratory Results: 09/26/16 06:38 09/26/16 06:38 09/25/16 09/26/16 09/26/16 21:08 06:38 06:38 WBC 7.4 RBC 4.25 L Hgb 12.4 L Hct 39.0 MCV 92 MCH 29.2 MCHC 31.8 L RDW 16.6 H Plt Count 210 Seg Neutrophils % 55.4 Lymphocytes % 25.2 Monocytes % 17.1 H Eosinophils % 1.2 Basophils % 1.1 Absolute Neutrophils 4.1 Absolute Lymphocytes 1.9 Absolute Monocytes 1.3 Absolute Eosinophils 0.1 Absolute Basophils 0.1 Sodium 137.2 Potassium 3.5 L 3.7 Chloride 103 Carbon Dioxide 24 Anion Gap 10 BUN 7 Creatinine 3.31 H Est GFR ( Amer) 23 L Est GFR (Non-Af Amer) 19 L Glucose 102 Calcium 7.8 L 09/25/16 21:08 Troponin I 0.014 Impressions: Chest X-Ray 09/25/16 15:50 IMPRESSION: NO ACUTE RADIOGRAPHIC FINDING IN THE CHEST. No significant changes from the prior study. Finger X-Ray 09/25/16 16:05 IMPRESSION: Minimally displaced fracture involving the proximal portion of the distal phalanx of the left thumb. No other fractures identified. Osteopenia. Head CT 09/25/16 19:34 IMPRESSION: Chronic ischemic changes. Assessment & Plan - Diagnosis (1) Generalized weakness Is this a current diagnosis for this admission?: YesPlan: Patient is chronic debility worsening for the last 2 months. This is multifactorial but most likely contributed by having uremic symptoms and severe hypoalbuminemia. This is due to patient's noncompliance to hemodialysis treatment and poor oral intake. (2) Hypoalbuminemia Is this a current diagnosis for this admission?: YesPlan: This is contributed by poor oral intake, cirrhosis, and being on dialysis. I encouraged the patient to eat a little bit more. I will order Nepro with meals while here in the hospital and this should be continued while in the care home or rehab. I will also give IV albumin 25 g tonight and tomorrow during dialysis. (3) ESRD on hemodialysis Is this a current diagnosis for this admission?: YesPlan: I sat down and talked with patient again regarding the importance of completing his dialysis treatment. I explained again the consequences of not doing his dialysis including progressive uremia which explain most of his symptoms for the last 1-2 months. Patient understood and is very much aware that this is his own doing that causing him to have all the symptoms. He tells me that he is not ready to quit dialysis yet and he will try his best to delay on the dialysis treatment. So we will continue to do dialysis treatment until the patient decides to stop dialysis. I also had a long discussion with the patient daughter Michelle yesterday during the care conference during the phone regarding the patient's current condition as I already stated. Daughter understood the consequences of the patient's action which can lead to end of life which means and dying. She is very much aware and understood everything. We will plan to dialyze the patient tomorrow. We will continue hemodialysis support while the patient is here in the hospital. (4) DNR (do not resuscitate) Is this a current diagnosis for this admission?: YesPlan: I confirmed this with patient. (5) Physical deconditioning Is this a current diagnosis for this admission?: YesPlan: Agree with some rehabilitation placement on this patient. (6) Fracture of thumb, left, closed Qualifiers: Encounter type: initial encounter Phalanx: distal Is this a current diagnosis for this admission?: Yes (7) Cirrhosis, alcoholic Qualifiers: Ascites presence: without ascites Qualified Code(s): K70.30 - Alcoholic cirrhosis of liver without ascites Is this a current diagnosis for this admission?: Yes (8) Chronic pain Qualifiers: Chronic pain type: chronic pain syndrome Qualified Code(s): G89.4 - Chronic pain syndrome Is this a current diagnosis for this admission?: Yes - Notes Notes: Thank you very much for this consult. - Time Time Spent: 50 to 70 Minutes
[2016-09-26] MEDS: ALBUMIN HUMAN 50 ML IV SCH ×2 (20:48→22:22)
[2016-09-27 06:05] LABS: ABSOLUTE BASOPHILS # (AUTO) 0.1 10^3/uL (0.0-0.2); ABSOLUTE EOSINOPHILS # (AUTO) 0.1 10^3/uL (0.0-0.6); ABSOLUTE MONOCYTES (AUTO) 1.4 10^3/uL (0.1-1.4); ABSOLUTE NEUT (AUTO) 5.6 10^3/uL (1.7-8.2); BASOPHILS % (AUTO) 0.7 % (0-2); EOSINOPHILS % (AUTO) 1.1 % (0-6); HEMATOCRIT 34.3 % (37.9-51.0); HGB HCT DIFFERENCE -1.3; LYMPHOCYTES % (AUTO) 22.2 % (13-45); MEAN CORPUSCULAR HEMOGLOBIN 28.9 pg (27.0-33.4); MEAN CORPUSCULAR VOLUME 91 fl (80-97); RED BLOOD COUNT 3.79 10^6/uL (4.35-5.55); RED CELL DISTRIBUTION WIDTH 16.5 % (11.5-14.0); WHITE BLOOD COUNT 9.1 10^3/uL (4.0-10.5)
[2016-09-27 06:38] LABS: ANION GAP 12 (5-19); BLOOD UREA NITROGEN 10 mg/dL (7-20); CALCIUM 7.8 mg/dL (8.4-10.2); CARBON DIOXIDE 21 mmol/L (22-30); CHLORIDE 105 mmol/L (98-107); GLUCOSE 74 mg/dL (75-110); POTASSIUM 3.5 mmol/L (3.6-5.0); SODIUM 137.5 mmol/L (137-145)
[2016-09-27] MEDS: HEPARIN SOD (PORCINE) 5,000 UNIT/ML 1 ML SYRINGE SUBCUT SCH ×2 (10:04→21:09)
[2016-09-27] MEDS: DOCUSATE SODIUM 100 MG CAPSULE PO SCH ×2 (10:06→17:12)
[2016-09-27] MEDS ORDERED: HEPARIN SOD (PORCINE) 1,000 UNIT/ML 10 ML VIAL IV PRN (13:48)
--- NOTE | 2016-09-27 14:53 | PROGRESS NOTE E ---
Progress Note NAME: DANIEL MAGUIRE : 1950 AGE: 66Y DATE: 09/27/2016 ROOM: 424 SUBJECTIVE: The patient is lying in bed. He states that he feels weak today, but overall feels about the same as when he came in. The patient denies any nausea, vomiting, diarrhea. No shortness of breath, dizziness, chest pain. No fevers or chills. The patient has been afebrile. Blood pressure has been in a good range. The patient does not voice any other concerns at this time. REVIEW OF SYSTEMS: The rest of the review of systems is negative. MEDICATIONS: Medications have been reviewed. OBJECTIVE: GENERAL: The patient is a 66-year-old male who is awake, alert. He oriented to person, place, time, and situation. He is verbal and conversational. He does not appear to be in any acute distress. VITAL SIGNS: Temperature is 99.0, pulse 93, respirations 19, blood pressure is 159/77, oxygen saturation is 100% on room air. SKIN: Warm and dry. No rash. He is not diaphoretic. HEENT: Pupils equal, round, and reactive to light and accommodation. Conjunctivae pink. NECK: No JVD. CARDIOVASCULAR SYSTEM: Heart is regular. There is no murmur or rub. CHEST: Clear, symmetrical, unlabored. ABDOMEN: Soft, nontender, and nondistended. BACK: No CVA tenderness or sacral edema. EXTREMITIES: No clubbing, cyanosis, edema. PSYCHIATRIC: Appropriate affect, pleasant mood. DIAGNOSTIC DATA: Lab values are as follows: Hematology obtained on 09/27/2016: WBCs are 9.1, hemoglobin is 11.0, hematocrit is 34.3, platelet count is 265. Chemistries obtained on 09/27/2016: Sodium is 137, potassium 3.5, chloride is 105, carbon dioxide 21, BUN 10, creatinine is 3.80, glucose 74, calcium of 7.8. IMPRESSION AND PLAN: 1. GENERAL DEBILITY STATUS POST FALL. The patient is recommended for SNF placement. vault worker has been consulted. The patient had a qualifying inpatient stay at [facility] and referrals have been sent. 2. CLOSED LEFT THUMB FRACTURE, CURRENTLY IMMOBILIZED. Do appreciate Orthopedic input with this. 3. CHRONIC KIDNEY DISEASE, STAGE 6. On hemodialysis. The patient currently dialyzes with Dr. Beach, his television cameraman. 4. ANEMIA OF CHRONIC DISEASE. Hemoglobin overall has been stable. 5. HYPERTENSION. BLOOD PRESSURE IS IN A GOOD RANGE. Will continue current medication. 6. CORONARY ARTERY DISEASE. Will continue the patient's home medications. DISPOSITION: The patient is a DNR/DNI. Pending the patient's symptomatology and diagnostic findings, the patient can go to rehab as soon as a bed is available. TIME: Time spent on this followup including assessment, plan, physical examination, patient education, and family meeting was 20 minutes. DICTATING PHYSICIAN: SHADIA CARSON NP [id number] PHY#: [id number] ID: [id number] JOB#: [id number] ACCT: [id number] cc: >
[2016-09-27] MEDS ORDERED: ALBUMIN HUMAN 100 ML IV PRN (15:00)
--- NOTE | 2016-09-27 16:51 | PDOC PROGRESS REPORT ---
Subjective Progress Note for:: 09/27/16 Subjective:: I am seeing the patient during dialysis treatment this afternoon. He continues to feel weak otherwise she does not really have any new complaints. Earlier he wanted to get off after 20 minutes because he was feeling cold again. Rupa was able to convince him to stay while giving IV albumin and he was able to stay at least for 2 hours today. I encouraged him to stay for at least 2 and half hours next time. Patient tells me he was given a try as best. Physical Exam Vital Signs: Temp Pulse Resp BP Pulse Ox 99.0 F 102 H 19 143/68 H 100 09/27/16 11:40 09/27/16 11:40 09/27/16 11:40 09/27/16 11:40 09/27/16 11:40 Intake & Output 09/26/16 09/27/16 09/28/16 06:59 06:59 06:59 Intake Total 0 895 Output Total 100 300 Balance -100 595 Weight 52.5 kg Vital signs during dialysis: Blood pressure 132/76, heart rate of 78, blood flow rate of 350 mL/min, dialysate flow rate of 800 mL/min. Exam: General appearance: PRESENT: no acute distress, cooperative, cachectic and ill looking Head exam: PRESENT: atraumatic, normocephalic Eye exam: PRESENT: conjunctiva pale, PERRLA. ABSENT: scleral icterus Neck exam: ABSENT: JVD Respiratory exam: PRESENT: Diminished breath sounds. ABSENT: crackles, rales, rhonchi, unlabored, wheezes Cardiovascular exam: PRESENT: Irregularly irregular rate rhythm -+S1, +S2. ABSENT: diastolic murmur, systolic murmur GI/Abdominal exam: PRESENT: normal bowel sounds, soft. ABSENT: guarding, mass, tenderness Extremities exam: ABSENT: No edema Neurological exam: PRESENT: alert, awake, oriented to person, place and time. Skin exam: PRESENT: dry, warm, Results Laboratory Results: 09/27/16 05:09 09/27/16 05:09 09/27/16 09/27/16 05:09 05:09 WBC 9.1 RBC 3.79 L Hgb 11.0 L Hct 34.3 L MCV 91 MCH 28.9 MCHC 32.0 RDW 16.5 H Plt Count 206 Seg Neutrophils % 61.0 Lymphocytes % 22.2 Monocytes % 15.0 H Eosinophils % 1.1 Basophils % 0.7 Absolute Neutrophils 5.6 Absolute Lymphocytes 2.0 Absolute Monocytes 1.4 Absolute Eosinophils 0.1 Absolute Basophils 0.1 Sodium 137.5 Potassium 3.5 L Chloride 105 Carbon Dioxide 21 L Anion Gap 12 BUN 10 Creatinine 3.80 H Est GFR ( Amer) 19 L Est GFR (Non-Af Amer) 16 L Glucose 74 L Calcium 7.8 L 09/25/16 21:08 Troponin I 0.014 Impressions: Chest X-Ray 09/25/16 15:50 IMPRESSION: NO ACUTE RADIOGRAPHIC FINDING IN THE CHEST. No significant changes from the prior study. Finger X-Ray 09/25/16 16:05 IMPRESSION: Minimally displaced fracture involving the proximal portion of the distal phalanx of the left thumb. No other fractures identified. Osteopenia. Head CT 09/25/16 19:34 IMPRESSION: Chronic ischemic changes. Assessment & Plan - Diagnosis (1) ESRD on hemodialysis Is this a current diagnosis for this admission?: YesPlan: I sat down and talked with patient again last night regarding the importance of completing his dialysis treatment. I explained again the consequences of not doing his dialysis including progressive uremia which explain most of his symptoms for the last 1-2 months. Patient understood and is very much aware that this is his own doing that causing him to have all the symptoms. He tells me that he is not ready to quit dialysis yet and he will try his best to delay on the dialysis treatment. So we will continue to do dialysis treatment until the patient decides to stop dialysis. I also had a long discussion with the patient daughter Michelle last during the care conference during the phone regarding the patient's current condition as I already stated. Daughter understood the consequences of the patient's action which can lead to end of life which means and dying. She is very much aware and understood everything. We will continue hemodialysis support while the patient is here in the hospital. We will do dialysis today for 2 hours, using the patient's PermCath, with 3 potassium bath, blood flow rate of 150 mL per minute, dialysate flow rate of 8 mL per minute, ultrafiltration 2 L, no heparin and no Procrit during dialysis. (2) Hypoalbuminemia Is this a current diagnosis for this admission?: YesPlan: This is contributed by poor oral intake, cirrhosis, and being on dialysis. I encouraged the patient to eat a little bit more. I ordered Nepro with meals while here in the hospital and this should be continued while in the fdc or rehab. I will also give IV albumin 25 g during dialysis. (3) Generalized weakness Is this a current diagnosis for this admission?: YesPlan: Patient is chronic debility worsening for the last 2 months. This is multifactorial but most likely contributed by having uremic symptoms and severe hypoalbuminemia. This is due to patient's noncompliance to hemodialysis treatment and poor oral intake. (4) Physical deconditioning Is this a current diagnosis for this admission?: YesPlan: Agree with some rehabilitation placement on this patient. (5) DNR (do not resuscitate) Is this a current diagnosis for this admission?: YesPlan: I confirmed this with patient. (6) Fracture of thumb, left, closed Qualifiers: Encounter type: initial encounter Phalanx: distal Is this a current diagnosis for this admission?: Yes (7) Cirrhosis, alcoholic Qualifiers: Ascites presence: without ascites Qualified Code(s): K70.30 - Alcoholic cirrhosis of liver without ascites Is this a current diagnosis for this admission?: Yes (8) Chronic pain Qualifiers: Chronic pain type: chronic pain syndrome Qualified Code(s): G89.4 - Chronic pain syndrome Is this a current diagnosis for this admission?: Yes - Notes Notes: I will not be available starting tonight until Friday morning. Dr. Beach will be covering me on Friday and Friday and will be supervising his dialysis on Friday. From nephrology standpoint I think he can be transferred to [facility] once bed is available. - Time Time with patient: 15-25 minutes
--- NOTE | 2016-09-27 19:13 | PDOC CONSULTATION ---
History of Present Illness Admission Date/PCP: 09/25/16 20:46 DRE BURKS History of Present Illness: DANIEL MAGUIRE JR is a 66 year old male, known to me with history of end-stage renal disease supposedly on hemodialysis on Wednesdays and Fridays, essential hypertension, liver cirrhosis, who was admitted yesterday because of generalized body aches and weakness. He sustained a fall onto his left thumb. Since that time he had swelling and ecchymosis. Fall occurred yesterday. States pain is worse with motion. Denies numbness or tingling. Past Medical History Cardiac Medical History: Reports: Congestive Heart Failure, Hypertension Denies: Coronary Artery Disease, DVT, Myocardial Infarction, Hyperlipidema, Pulmonary Embolism Pulmonary Medical History: Denies: Asthma, Bronchitis, Chronic Obstructive Pulmonary Disease (COPD), Pneumonia, Sleep Apnea EENT Medical History: Reports: Eyes - Glasses, Other - Easy bruising Denies: Ears, Throat Neurological Medical History: Reports: Other - History of lumbar disc herniation with chronic back pain on chronic pain medications by pain management. Denies: Hemorrhagic CVA, Ischemic CVA, Seizures Endocrine Medical History: Denies: Diabetes Mellitus Type 1, Diabetes Mellitus Type 2, Hyperthyroidism, Hypothyroidism Renal/ Medical History: Reports: End Stage Renal Disease Malignancy Medical History: Reports: Skin Cancer GI Medical History: Reports: Cirrhosis, Gastroesophageal Reflux Disease, Peptic Ulcer Disease - Distant history of same, Other - Irritable bowel syndrome Musculoskeltal Medical History: Reports: Arthritis, Gout Psychiatric Medical History: Reports: Depression, General Anxiety Disorder, Tobacco Dependency Denies: Alcohol Dependency, Substance Abuse Hematology: Reports: Other - Easy bruising Denies: Anemia Infectious Medical History: Denies: Clostridium Difficile, Methicillin-Resistant Staph Aureus Past Surgical History Past Surgical History: Reports: Appendectomy, Cholecystectomy, Herniorrhaphy, Orthopedic Surgery - B elbow, R wrist, Vascular Surgery - Perm catheter for dialysis; fistula formation, maturing, for dialysis., Other - Cataract extraction Social History Lives with: Alone Smoking Status: Current Every Day Smoker Cigarettes Packs Per Day: 2 Frequency of Alcohol Use: None Hx Recreational Drug Use: No Drugs: None Hx Prescription Drug Abuse: No - Advance Directive Resuscitation Status: Do Not Resuscitate Family History Family History: Reviewed & Not Pertinent Parental Family History Reviewed: No Children Family History Reviewed: No Sibling(s) Family History Reviewed.: No Medication/Allergy Home Medications: Amlodipine Besylate 10 mg PO DAILY 09/27/16 Dexlansoprazole [Dexilant 60 mg Capsule] 60 mg PO DAILY 09/27/16 Dicyclomine HCl [Bentyl 10 mg Capsule] 10 mg PO Q12 09/27/16 Hydralazine HCl [Apresoline 50 mg Tablet] 50 mg PO Q6 09/27/16 Hydromorphone HCl [Dilaudid] 4 mg PO Q8HP PRN 09/27/16 Isosorbide Mononitrate [Isosorbide Mononitrate ER] 30 mg PO QAM 09/27/16 Lorazepam [Ativan 0.5 mg Tablet] 0.5 mg PO MOWEFR 09/27/16 Megestrol Acetate [Megace] 400 mg PO DAILY 09/27/16 Zolpidem Tartrate 5 mg PO HSP PRN 09/27/16 Allergies/Adverse Reactions: No Known Allergies Allergy (Verified 09/25/16 15:13) Physical Exam Vital Signs: Temp Pulse Resp BP Pulse Ox 98.6 F 92 18 143/69 H 100 09/27/16 17:49 09/27/16 17:49 09/27/16 17:49 09/27/16 17:49 09/27/16 17:49 Intake & Output 09/26/16 09/27/16 09/28/16 06:59 06:59 06:59 Intake Total 0 895 540 Output Total 100 300 Balance -100 595 540 Weight 52.5 kg General appearance: PRESENT: thin Head exam: PRESENT: atraumatic Eye exam: PRESENT: conjunctival injection Mouth exam: PRESENT: dry mucosa Neck exam: PRESENT: full ROM Respiratory exam: PRESENT: unlabored Cardiovascular exam: PRESENT: irregular rhythm Vascular exam: PRESENT: normal capillary refill GI/Abdominal exam: PRESENT: diminished bowel sounds, soft Musculoskeletal exam: PRESENT: other - Left thumb: Swelling ecchymosis throughout the DIP joint. Pain with range of motion. Cap refill less than 2 seconds. No sensory deficits. Emergency room splint immobilizing the MCP joint removed. Neurological exam: PRESENT: alert, altered, awake, oriented to person, oriented to place, oriented to time, oriented to situation Results Laboratory Results: 09/27/16 05:09 09/27/16 05:09 09/27/16 09/27/16 05:09 05:09 WBC 9.1 RBC 3.79 L Hgb 11.0 L Hct 34.3 L MCV 91 MCH 28.9 MCHC 32.0 RDW 16.5 H Plt Count 206 Seg Neutrophils % 61.0 Lymphocytes % 22.2 Monocytes % 15.0 H Eosinophils % 1.1 Basophils % 0.7 Absolute Neutrophils 5.6 Absolute Lymphocytes 2.0 Absolute Monocytes 1.4 Absolute Eosinophils 0.1 Absolute Basophils 0.1 Sodium 137.5 Potassium 3.5 L Chloride 105 Carbon Dioxide 21 L Anion Gap 12 BUN 10 Creatinine 3.80 H Est GFR ( Amer) 19 L Est GFR (Non-Af Amer) 16 L Glucose 74 L Calcium 7.8 L 09/25/16 21:08 Troponin I 0.014 Impressions: Chest X-Ray 09/25/16 15:50 IMPRESSION: NO ACUTE RADIOGRAPHIC FINDING IN THE CHEST. No significant changes from the prior study. Finger X-Ray 09/25/16 16:05 IMPRESSION: Minimally displaced fracture involving the proximal portion of the distal phalanx of the left thumb. No other fractures identified. Osteopenia. Head CT 09/25/16 19:34 IMPRESSION: Chronic ischemic changes. Assessment & Plan - Diagnosis (1) Distal phalanx or phalanges, closed fracture Qualifiers: Encounter type: initial encounter Finger: thumb Fracture alignment : nondisplaced Laterality: left Qualified Code(s): S62.525A - Nondisplaced fracture of distal phalanx of left thumb, initial encounter for closed fracture Is this a current diagnosis for this admission?: YesPlan: Patient sustained a nondisplaced distal phalanx fracture to the emergency room splint was removed given the fact was only immobilizing the MCP joint. Patient has multiple medical comorbidities thus he is a poor surgical candidate but at this point his current fracture is within acceptable alignment for nonoperative treatment. I have placed in a soft dressing he will avoid usage of the extremity. He will follow-up in the office with me in 2 weeks at which point we will place him in a thermoplastic or stack splint.
[2016-09-28] MEDS ORDERED: DICYCLOMINE HCL 10 MG CAPSULE PO PRN (08:56)
--- NOTE | 2016-09-28 09:28 | PROGRESS NOTE E ---
Progress Note NAME: DANIEL MAGUIRE : 1950 AGE: 66Y DATE: 09/28/2016 ROOM: 429 SUBJECTIVE: The patient is lying in bed. He states that he is having some belly cramping. He denies any nausea, vomiting, diarrhea. No shortness of breath, dizziness, chest pain. No fevers, chills. Patient has been afebrile. His blood pressure has been a little elevated, and the patient does not voice any concerns at this time. REVIEW OF SYSTEMS: Rest of review of systems negative. MEDICATIONS: Medications have been reviewed. OBJECTIVE: GENERAL: The patient is a 66-year-old male who is awake, alert. He is oriented to person, place, time, and situation. He is verbal, conversational, does not appear to be in acute distress. VITAL SIGNS: Temperature is 98.3, pulse 82, respirations 18, blood pressure is 173/69, oxygen saturation is 99% on room air. SKIN: Warm and dry. No rash. Not diaphoretic. HEENT: Pupils equal, round, and reactive to light and accommodation. Conjunctivae pink. No JVP. CARDIOVASCULAR SYSTEM: Heart is regular. There is no murmur or rub. CHEST: Clear, symmetrical, unlabored. ABDOMEN: Soft, nontender, nondistended. BACK: No CVA tenderness or sacral edema. EXTREMITIES: No clubbing, cyanosis, edema. Dressing dry and intact. DIAGNOSTICS: Lab values are as follows: Hematology obtained on 09/27/2016: WBCs are 9.1, hemoglobin is 12.0, hematocrit is 34.3, platelet count is 206,000. Chemistry obtained on 09/27/2016. Sodium is 137, potassium 3.5, chloride is 105, carbon dioxide is 21, BUN 10, creatinine is 3.8. Glucose 74, calcium is 7.8. IMPRESSION AND PLAN: 1. GENERAL DEBILITY STATUS POST FALL. Recommendations have been made for SNF placement. tail board worker has been consulted. It appears the patient had a qualifying inpatient stay at [facility]. The patient can go to rehab as soon as a bed is available. 2. CLOSED LEFT THUMB FRACTURE. Currently mobilized. Do appreciate Orthopedic input with this. 3. CHRONIC KIDNEY DISEASE STAGE 6 REQUIRING HEMODIALYSIS. The patient dialyzes with Dr. Beach, his retail visual merchandiser. 4. ANEMIA OF CHRONIC DISEASE. Hemoglobin overall has been stable. 5. HYPERTENSION. Blood pressures have been actually elevated now. Will resume home medications. 6. CORONARY ARTERY DISEASE. Will continue home medications. DISPOSITION: The patient is a DNR/DNI. Pending patient's symptomatology and diagnostic findings, will re-evaluate in the a.m. He can go to rehab when a bed is available. The patient is medical status. Time spent on this followup including assessment, plan, physical examination, patient education is 20 minutes. DICTATING PHYSICIAN: SHADIA CARSON NP [id number] PHY#: [id number] ID: [id number] JOB#: [id number] ACCT: [id number] cc: >
[2016-09-28] MEDS ORDERED: MEGESTROL ACETATE 400 MG PO SCH (10:00)
[2016-09-28] MEDS: AMLODIPINE BESYLATE 10 MG TABLET PO SCH (10:14)
[2016-09-28] MEDS: HEPARIN SOD (PORCINE) 5,000 UNIT/ML 1 ML SYRINGE SUBCUT SCH ×2 (10:15→22:30)
[2016-09-28] MEDS: DOCUSATE SODIUM 100 MG CAPSULE PO SCH ×2 (10:22→17:04)
[2016-09-28] MEDS ORDERED: DICYCLOMINE HCL 20 MG TABLET PO ONE (10:30)
[2016-09-28] MEDS: MEGESTROL ACETATE SUSP 400 MG/10 ML UDCUP PO SCH (10:56)
[2016-09-28] MEDS ORDERED: ISOSORBIDE MONONITRATE 30 MG TAB.ER.24H PO ONE (11:00)
[2016-09-28] MEDS ORDERED: LANSOPRAZOLE 30 MG TAB.RAP.DR PO ONE (11:00)
[2016-09-28] MEDS ORDERED: ONDANSETRON 4 MG TAB.RAPDIS PO PRN ×2 (13:34→14:39)
[2016-09-28] MEDS ORDERED: COLCHICINE 0.6 MG TABLET PO PRN (14:24)
[2016-09-28] MEDS ORDERED: ONDANSETRON 4 MG TAB.RAPDIS ONE (14:59)
[2016-09-28] MEDS: HYDRALAZINE HCL 50 MG TABLET PO SCH ×3 (15:08→23:42)
[2016-09-28] MEDS: NICOTINE 21 MG/24 HR PATCH.TD24 TD PRN (17:04)
[2016-09-28] MEDS: HYDROMORPHONE HCL 2 MG TABLET PO PRN (22:29)
[2016-09-29] MEDS: LANSOPRAZOLE 30 MG TAB.RAP.DR PO SCH (05:48)
[2016-09-29] MEDS: HYDRALAZINE HCL 50 MG TABLET PO SCH ×3 (05:48→17:57)
[2016-09-29] MEDS: ISOSORBIDE MONONITRATE 30 MG TAB.ER.24H PO SCH (08:16)
[2016-09-29] MEDS: BUMETANIDE 1 MG TABLET PO SCH (08:16)
[2016-09-29] MEDS ORDERED: BUMETANIDE PO SCH (10:00)
[2016-09-29] MEDS: HEPARIN SOD (PORCINE) 5,000 UNIT/ML 1 ML SYRINGE SUBCUT SCH ×2 (10:07→21:25)
[2016-09-29] MEDS: MEGESTROL ACETATE SUSP 400 MG/10 ML UDCUP PO SCH (10:08)
[2016-09-29] MEDS: DOCUSATE SODIUM 100 MG CAPSULE PO SCH ×2 (10:09→18:00)
[2016-09-29] MEDS: AMLODIPINE BESYLATE 10 MG TABLET PO SCH (10:09)
[2016-09-29] MEDS: ASPIRIN 81 MG TABLET, ENT COATED PO SCH (10:09)
--- NOTE | 2016-09-29 10:09 | PROGRESS NOTE E ---
Progress Note NAME: DANIEL MAGUIRE : 1950 AGE: 66Y DATE: 09/29/2016 ROOM: 429 SUBJECTIVE: The patient is lying in bed. He states that he is ready to go home, although he is waiting for a rehab bed. It appears he had an elevation in his heart rate earlier in the morning, however, upon my auscultation it did sound regular and approximately 98. The patient denies any nausea, vomiting, diarrhea. No shortness of breath, dizziness, chest pain. No heart palpitations. No fevers, chills. Patient has been afebrile. Blood pressure has been in a good range, and the patient does not voice any other concerns at this time. REVIEW OF SYSTEMS: Rest of review of systems negative. MEDICATIONS: Medications have been reviewed. OBJECTIVE: GENERAL: The patient is a 66-year-old male who is awake, alert, and oriented to person, place, time, and situation. He is verbal, conversational, does not appear to be in any acute distress. VITAL SIGNS ARE FOLLOWS: Temperature is 99.0, pulse 115, respirations 17, blood pressure is 132/62, oxygen saturation is 98% on room air. SKIN: Warm and dry. No rash. Not diaphoretic. HEENT: Pupils equal, round, and reactive to light and accommodation. Conjunctivae pink. No JVP. CARDIOVASCULAR SYSTEM: Heart is regular. There is no murmur or rub. CHEST: Clear, symmetrical, unlabored. ABDOMEN: Soft, nontender, nondistended. BACK: No CVA tenderness or sacral edema. EXTREMITIES: No clubbing, cyanosis, edema. PSYCHIATRIC: Appropriate affect, pleasant mood. DIAGNOSTICS: Lab values are as follows: Hematology obtained on 09/27/2016: WBCs are 9.1, hemoglobin is 12.0, hematocrit is 34.3, platelet count is 206,000. Chemistry obtained on 09/27/2016. Sodium is 137, potassium 3.5, chloride is 105, carbon dioxide is 21, BUN 10, creatinine is 3.80. Glucose 74, calcium is 7.8. IMPRESSION AND PLAN: 1. GENERAL DEBILITY STATUS POST FALL. The patient is awaiting longterm facility placement. It appears he had a qualifying inpatient stay at [facility] this month. He can go to rehab as soon as a bed is available. 2. CLOSED LEFT THUMB FRACTURE. Currently immobilized. Do appreciate Orthopedic input with this. 3. END-STAGE RENAL DISEASE REQUIRING HEMODIALYSIS. The patient dialyzes with Dr. Beach, his livestock dealer. 4. ANEMIA OF CHRONIC DISEASE. Hemoglobins overall stable. 5. HYPERTENSION. Blood pressures are back to baseline. Have resumed home medications, including clonidine. 6. TACHYCARDIA. Most likely some rebounding from clonidine. Will give a now dose and resume home dosages. 7. CORONARY ARTERY DISEASE. Will continue home medications. DISPOSITION: The patient is a DO NOT RESUSCITATE/DO NOT INTUBATE. Pending patient's symptomatology and diagnostic findings, the patient can go to rehab as soon as a bed is available. Time spent on this followup including assessment, plan, physical examination, patient education is 20 minutes. DICTATING PHYSICIAN: SHADIA CARSON NP [id number] PHY#: [id number] ID: [id number] JOB#: [id number] ACCT: [id number] cc: >
[2016-09-29] MEDS: HYDROMORPHONE HCL 2 MG TABLET PO PRN (10:28)
[2016-09-29] MEDS ORDERED: CLONIDINE HCL 0.2 MG TABLET PO ONE (10:30)
[2016-09-29] MEDS: CLONIDINE HCL 0.2 MG TABLET PO SCH ×2 (17:57→21:25)
[2016-09-29] MEDS: NICOTINE 21 MG/24 HR PATCH.TD24 TD PRN (22:11)
[2016-09-30] MEDS: HYDRALAZINE HCL 50 MG TABLET PO SCH (00:52)
[2016-09-30] MEDS ORDERED: LORAZEPAM 0.5 MG TABLET PO PRN (05:00)
[2016-09-30] MEDS ORDERED: ALBUMIN HUMAN 100 ML IV PRN (06:00)
[2016-09-30] MEDS ORDERED: HEPARIN SOD (PORCINE) 1,000 UNIT/ML 10 ML VIAL IV PRN (06:00)
[2016-09-30 06:14] LABS: HEMATOCRIT 28.9 % (37.9-51.0); HEMOGLOBIN 9.2 g/dL (13.5-17.0); HGB HCT DIFFERENCE -1.3; MEAN CORPUSCULAR HEMOGLOBIN 28.7 pg (27.0-33.4); MEAN CORPUSCULAR HGB CONC 31.9 g/dL (32.0-36.0); MEAN CORPUSCULAR VOLUME 90 fl (80-97); RED BLOOD COUNT 3.22 10^6/uL (4.35-5.55); RED CELL DISTRIBUTION WIDTH 16.2 % (11.5-14.0); WHITE BLOOD COUNT 8.1 10^3/uL (4.0-10.5)
[2016-09-30 06:23] LABS: ANION GAP 10 (5-19); BLOOD UREA NITROGEN 15 mg/dL (7-20); CALCIUM 7.5 mg/dL (8.4-10.2); CARBON DIOXIDE 23 mmol/L (22-30); CHLORIDE 102 mmol/L (98-107); CREATININE RESULT 4.58 mg/dL (0.52-1.25); GLUCOSE 91 mg/dL (75-110); MAGNESIUM 1.6 mg/dL (1.6-2.3); POTASSIUM 3.5 mmol/L (3.6-5.0); SODIUM 135.3 mmol/L (137-145)
--- NOTE | 2016-09-30 07:17 | Physician Advisory Note ---
Physician Advisor ProgressNote .: Pursuant to the plan for [facility], I have reviewed the medical record for this patient. Physician Advisor Statement: Please consider documentin. "Acute Hyponatremia, likely due to " 2. "underweight with protein-calorie malnutrition [state mild, mod, or severe] with BMI 16.2, BUN 6, ____[?wt loss, ?appetite loss, ]" [if possible, give specifics on intake, wt loss, loss of SQ fat & muscle mass, diminished hand shop tailor strength, & clinical importance such as (A) nutritional assessment ordered, (B) modified diet or supplements ordered, (C) additional labs ordered, (D) prolonged wound healing time, (E) delayed infxn clearance] - ED has documented "exposed ribs not allowing [stethescope] diaphragm to fully adhere to skin" - Dr. Billy has ordered supplement Status: Pt has not met criteria for Inpt status & was appropriately changed to Obs 09/26. Now awaiting rehab bed. Thanks! CK
[2016-09-30] MEDS ORDERED: HYDRALAZINE HCL 50 MG TABLET PO SCH (09:04)
[2016-09-30] MEDS: CLONIDINE HCL 0.2 MG TABLET PO SCH ×2 (11:00→17:53)
[2016-09-30] MEDS: ISOSORBIDE MONONITRATE 30 MG TAB.ER.24H PO SCH (11:02)
[2016-09-30] MEDS: LANSOPRAZOLE 30 MG TAB.RAP.DR PO SCH (11:03)
[2016-09-30] MEDS: AMLODIPINE BESYLATE 10 MG TABLET PO SCH (11:03)
[2016-09-30] MEDS: DOCUSATE SODIUM 100 MG CAPSULE PO SCH ×2 (11:03→17:53)
[2016-09-30] MEDS: ASPIRIN 81 MG TABLET, ENT COATED PO SCH (11:03)
[2016-09-30] MEDS: HEPARIN SOD (PORCINE) 5,000 UNIT/ML 1 ML SYRINGE SUBCUT SCH (11:04)
[2016-09-30] MEDS: MEGESTROL ACETATE SUSP 400 MG/10 ML UDCUP PO SCH (11:05)
[2016-09-30] MEDS: BUMETANIDE 1 MG TABLET PO SCH (11:06)
[2016-09-30] MEDS: HYDROMORPHONE HCL 2 MG TABLET PO PRN (11:39)
[2016-09-30] MEDS: HYDRALAZINE HCL 25 MG TABLET PO SCH ×2 (13:14→17:54)
--- NOTE | 2016-09-30 13:52 | PDOC PROGRESS REPORT ---
Subjective Progress Note for:: 09/30/16 Subjective:: I am covering Dr Billy. This is a ESRD patient with a background h/o end stage Liver disease/ cirrhosis from Alcohol. He is currently undergoing HD without any issues. VS stable. He has been becoming rather cachectic off lately , withdrawn and has been refusing to do or complete his dialysis treatments. Currently he lying still, flay affect and denies any specific c/o. Physical Exam Vital Signs: Temp Pulse Resp BP Pulse Ox 98.8 F 78 22 H 108/53 L 99 09/30/16 12:00 09/30/16 12:00 09/30/16 12:00 09/30/16 12:00 09/30/16 12:00 Intake & Output 09/29/16 09/30/16 10/01/16 06:59 06:59 06:59 Intake Total 953 979 Output Total 600 Balance 953 979 -600 Weight 49.7 kg General appearance: PRESENT: no acute distress Respiratory exam: PRESENT: clear to auscultation nan. ABSENT: crackles Cardiovascular exam: PRESENT: +S1, +S2 GI/Abdominal exam: PRESENT: soft. ABSENT: distended, organomegaly, tenderness Extremities exam: PRESENT: pedal edema Psychiatric exam: PRESENT: flat affect Results Laboratory Results: 09/30/16 05:39 09/30/16 05:39 09/30/16 09/30/16 05:39 05:39 WBC 8.1 RBC 3.22 L Hgb 9.2 L Hct 28.9 L MCV 90 MCH 28.7 MCHC 31.9 L RDW 16.2 H Plt Count 155 Sodium 135.3 L Potassium 3.5 L Chloride 102 Carbon Dioxide 23 Anion Gap 10 BUN 15 Creatinine 4.58 H Est GFR ( Amer) 16 L Est GFR (Non-Af Amer) 13 L Glucose 91 Calcium 7.5 L Magnesium 1.6 09/25/16 21:08 Troponin I 0.014 Impressions: Chest X-Ray 09/25/16 15:50 IMPRESSION: NO ACUTE RADIOGRAPHIC FINDING IN THE CHEST. No significant changes from the prior study. Finger X-Ray 09/25/16 16:05 IMPRESSION: Minimally displaced fracture involving the proximal portion of the distal phalanx of the left thumb. No other fractures identified. Osteopenia. Head CT 06/28/17 19:34 IMPRESSION: Chronic ischemic changes. Assessment & Plan - Diagnosis (1) Physical deconditioning Is this a current diagnosis for this admission?: YesPlan: as per hospitalist (2) Anemia in chronic kidney disease (CKD) Plan: titrate epo. (3) ESRD on hemodialysis Plan: patient seen on HD. No issues on HD. Being supervised. VS stable.Plan to remove 1-2 L as tolerated.Orders discussed with RN. (4) Weakness Plan: Ptn DNR. Almost cachetic.
--- NOTE | 2016-09-30 14:58 | PROGRESS NOTE E ---
Progress Note NAME: DANIEL MAGUIRE : 1950 AGE: 66Y DATE: 09/30/2016 ROOM: 429 SUBJECTIVE: The patient is lying in bed. He dialyzed earlier today. The patient is currently awaiting rehab placement. It appears he has had a qualifying inpatient stay at [facility] in the past month. This discharge summary has been obtained and [facility] has been made aware. Currently awaiting confirmation for a bed offer. No reported episodes of nausea, vomiting, diarrhea, shortness of breath, dizziness, or chest pain. No fevers, chills. The patient has been afebrile. Blood pressure has been in a good range. The patient does not voice any other concerns at this time. REVIEW OF SYSTEMS: The rest of the review of systems is negative. MEDICATIONS: Medications have been reviewed. OBJECTIVE: GENERAL: The patient is a 66-year-old male who is awake, alert, and oriented to person, place, time, and situation. He is verbal and conversational, very easily agitated, does not appear to be in any acute distress. VITAL SIGNS: Temperature is 98.8, pulse 78, respirations 22, blood pressure is 108/53, oxygen saturation is 99% on room air. SKIN: Warm and dry. No rash. He is not diaphoretic. HEENT: Pupils equal, round, and reactive to light and accommodation. Conjunctivae pink. NECK: No JVD. CARDIOVASCULAR SYSTEM: Heart is regular. There is no murmur or rub. CHEST: Clear, symmetrical, unlabored. ABDOMEN: Soft, nontender, and nondistended. BACK: No CVA tenderness or sacral edema. EXTREMITIES: No clubbing, cyanosis, edema. PSYCHIATRIC: Easily agitated. DIAGNOSTIC DATA: Lab values are as follows: Hematology obtained on 09/30/2016: WBC's are 8.1, hemoglobin is 9.2, hematocrit is 28.9, platelet count is 155,000. Chemistries obtained on 09/30/2016: Sodium is 135, potassium is 3.5, chloride is 102, carbon dioxide is 23, BUN 15, creatinine is 4.58, glucose 91, calcium is 7.5, magnesium is 1.6. IMPRESSION AND PLAN: 1. GENERAL DEBILITY STATUS POST FALL. The patient is awaiting SNF placement. 2. CLOSED LEFT THUMB FRACTURE. Currently immobilized. Do appreciate Orthopedic input for this. 3. END-STAGE RENAL DISEASE, REQUIRING HEMODIALYSIS. The patient dialyzes and Dr. Beach is his dispatcher refinery. 4. ANEMIA OF CHRONIC DISEASE, OVERALL STABLE. 5. HYPERTENSION. BLOOD PRESSURES ARE AT BASELINE. He will resume home medications, including clonidine. 6. TACHYCARDIA. This resolved when clonidine was resumed. 7. CORONARY ARTERY DISEASE. Will continue home medications. DISPOSITION: The patient is a DO NOT RESUSCITATE/DO NOT INTUBATE. The patient will go to rehab as soon as a bed is available. TIME: Time spent on this followup including assessment, plan, physical examination, and patient education was 15 minutes. DICTATING PHYSICIAN: SHADIA CARSON NP [id number] PHY#: [id number] ID: [id number] JOB#: [id number] ACCT: [id number] cc: >
--- NOTE | 2016-09-30 15:16 | PDOC TRANSFER SUMMARY ---
General - Admit/Disc Date/PCP Admission Date/Primary Care Provider: 09/25/16 20:[address] Discharge Date: 09/30/16 - Discharge Diagnosis (1) Fracture of thumb, left, closed Is this a current diagnosis for this admission?: Yes (2) Ambulatory dysfunction Is this a current diagnosis for this admission?: Yes (3) Fall Is this a current diagnosis for this admission?: Yes (4) Hypokalemia Is this a current diagnosis for this admission?: Yes (5) Impaired mobility and ADLs Is this a current diagnosis for this admission?: Yes (6) Physical deconditioning Is this a current diagnosis for this admission?: Yes (7) Anemia in chronic kidney disease (CKD) Is this a current diagnosis for this admission?: Yes (8) Chronic pain Is this a current diagnosis for this admission?: Yes (9) ESRD on hemodialysis Is this a current diagnosis for this admission?: Yes (10) Hypertension Is this a current diagnosis for this admission?: Yes (11) Hypoalbuminemia Is this a current diagnosis for this admission?: Yes (12) DNR (do not resuscitate) Is this a current diagnosis for this admission?: Yes - Additional Information Resuscitation Status: Do Not Resuscitate Discharge Diet: As Tolerated, Other (Comments) - Renal Discharge Activity: Supervised Activity Home Medications: Amlodipine Besylate 10 mg PO DAILY 09/27/16 Dexlansoprazole [Dexilant 60 mg Capsule] 60 mg PO DAILY 09/27/16 Dicyclomine HCl [Bentyl 10 mg Capsule] 10 mg PO Q12 09/27/16 Isosorbide Mononitrate [Isosorbide Mononitrate ER] 30 mg PO QAM 09/27/16 Megestrol Acetate [Megace] 400 mg PO DAILY 09/27/16 Zolpidem Tartrate 5 mg PO HSP PRN 09/27/16 Aspirin [Ecotrin 81 mg EC Tablet] 81 mg PO DAILY 09/28/16 Bumetanide [Bumex 2 mg Tablet] 2 tab PO DAILY 09/28/16 Colchicine [Colchicine 0.6 mg Tablet] 0.6 mg PO DAILY PRN 09/28/16 Ergocalciferol (Vitamin D2) [Vitamin D2] 50,000 unit PO FR@10 09/28/16 Nicotine [Nicoderm 21 mg/24 Hr Transderm Patch] 1 patch TD DAILY 09/28/16 Ondansetron HCl [Zofran 4 mg Tablet] 1 tab PO Q6HP PRN 09/28/16 Clonidine HCl [Catapres 0.2 mg Tablet] 0.2 mg PO Q8 tablet 09/30/16 Hydromorphone HCl [Dilaudid] 4 mg PO Q6HP PRN #10 tablet 09/30/16 History of Present Illness Admission Date/PCP: 09/25/16 20:46 DRE BURKS History of Present Illness: DANIEL MAGUIRE JR is a 66 year old male, with reported noncompliance with Friday hemodialysis sessions, and with a recent history of only partial dialysis sessions due to generalized weakness and "not feeling well." Was only able to tolerate approximately 1 hour of dialysis today when he was brought to the emergency room for above complaints. Denies nausea vomiting, fever or chills, diarrhea or dysuria, chest or abdominal pain. Complains of hurting "all over," but in particular his left thumb which he fractured yesterday when he lost his footing and fell backwards on his butt. Did not strike his head. No loss of consciousness. X-rays reveal a closed fracture of the left thumb. Thumb spica splint has been applied. Daughter describes an acute worsening in his overall weakness over the last day or so. Lives alone. Normally ambulates with a walker, but due to his thumb fracture and generalized weakness is basically nonambulatory at present. For a number of reasons, including his pack-a-day smoking, and family members with asthma, he and family are seeking admission to [place] halfway. Patient is comfortable with this. Recently hospitalized at [facility] for what sounds to be cellulitis from an abrasion to his left lower leg. Daughter states site is healing quite nicely. Home health coming several times a week for examination and dressing change. Hospital Course Hospital Course: The patient was admitted for observation to continuous telemetry unit. The patient was dialyzed and seen by Nephrology. The patient was evaluated by orthopedics. The patient has been cleared for discharge to rehab given his recent inpatient stay. The patient's home medications have been continued. NO new medications added given the patient is only here for placement. Patient sustained a nondisplaced distal phalanx fracture to the emergency room splint was removed given the fact was only immobilizing the MCP joint. Patient has multiple medical comorbidities thus he is a poor surgical candidate but at this point his current fracture is within acceptable alignment for nonoperative treatment. Ortho placed in a soft dressing he will avoid usage of the extremity. He will follow-up with ortho in 2 weeks at which point we will place him in a thermoplastic or stack splint. Physical Exam Vital Signs: Temp Pulse Resp BP Pulse Ox 98.8 F 78 22 H 108/53 L 99 09/30/16 12:00 09/30/16 12:00 09/30/16 12:00 09/30/16 12:00 09/30/16 12:00 Intake & Output 09/28/16 09/29/16 09/30/16 23:59 23:59 23:59 Intake Total 1003 874 265 Output Total 600 Balance 1003 874 -335 Weight 49.7 kg 49.7 kg General appearance: PRESENT: disheveled, thin. ABSENT: well-nourished Head exam: PRESENT: atraumatic, normocephalic Eye exam: PRESENT: conjunctiva pink, EOMI, PERRLA. ABSENT: scleral icterus Ear exam: PRESENT: normal external ear exam Mouth exam: PRESENT: moist, tongue midline Neck exam: ABSENT: carotid bruit, JVD, lymphadenopathy, thyromegaly Respiratory exam: PRESENT: clear to auscultation nan. ABSENT: rales, rhonchi, wheezes Cardiovascular exam: PRESENT: RRR. ABSENT: diastolic murmur, rubs, systolic murmur Pulses: PRESENT: normal dorsalis pedis pul Vascular exam: PRESENT: normal capillary refill GI/Abdominal exam: PRESENT: normal bowel sounds, soft. ABSENT: distended, guarding, mass, organolmegaly, rebound, tenderness Rectal exam: PRESENT: deferred Extremities exam: PRESENT: full ROM. ABSENT: calf tenderness, clubbing, pedal edema Neurological exam: PRESENT: alert, awake, oriented to person, oriented to place , oriented to time, oriented to situation, CN II-XII grossly intact. ABSENT: motor sensory deficit Psychiatric exam: PRESENT: appropriate affect, normal mood. ABSENT: homicidal ideation, suicidal ideation Skin exam: PRESENT: dry, intact, warm. ABSENT: cyanosis, rash Results Laboratory Results: Labs- Last Values WBC 8.1 10^3/uL (4.0-10.5) 09/30/16 05:39 RBC 3.22 10^6/uL (4.35-5.55) L 09/30/16 05:39 Hgb 9.2 g/dL (13.5-17.0) L 09/30/16 05:39 Hct 28.9 % (37.9-51.0) L 09/30/16 05:39 MCV 90 fl (80-97) 09/30/16 05:39 MCH 28.7 pg (27.0-33.4) 09/30/16 05:39 MCHC 31.9 g/dL (32.0-36.0) L 09/30/16 05:39 RDW 16.2 % (11.5-14.0) H 09/30/16 05:39 Plt Count 155 10^3/uL (150-450) 09/30/16 05:39 Seg Neutrophils % 61.0 % (42-78) 09/27/16 05:09 Lymphocytes % 22.2 % (13-45) 09/27/16 05:09 Monocytes % 15.0 % (3-13) H 09/27/16 05:09 Eosinophils % 1.1 % (0-6) 09/27/16 05:09 Basophils % 0.7 % (0-2) 09/27/16 05:09 Absolute Neutrophils 5.6 10^3/uL (1.7-8.2) 09/27/16 05:09 Absolute Lymphocytes 2.0 10^3/uL (0.5-4.7) 09/27/16 05:09 Absolute Monocytes 1.4 10^3/uL (0.1-1.4) 09/27/16 05:09 Absolute Eosinophils 0.1 10^3/uL (0.0-0.6) 09/27/16 05:09 Absolute Basophils 0.1 10^3/uL (0.0-0.2) 09/27/16 05:09 PT 15.0 SEC (11.4-15.4) 09/26/16 06:38 INR 1.10 09/26/16 06:38 VBG pH 7.49 (7.30-7.42) H 09/25/16 16:10 VBG pCO2 34.9 mmHg (35-63) L 09/25/16 16:10 VBG HCO3 25.8 mmol/L (20-32) 09/25/16 16:10 VBG Base Excess 2.6 mmol/L 09/25/16 16:10 Sodium 135.3 mmol/L (137-145) L 09/30/16 05:39 Potassium 3.5 mmol/L (3.6-5.0) L 09/30/16 05:39 Chloride 102 mmol/L (98-107) 09/30/16 05:39 Carbon Dioxide 23 mmol/L (22-30) 09/30/16 05:39 Anion Gap 10 (5-19) 09/30/16 05:39 BUN 15 mg/dL (7-20) 09/30/16 05:39 Creatinine 4.58 mg/dL (0.52-1.25) H 09/30/16 05:39 Est GFR ( Amer) 16 (>60) L 09/30/16 05:39 Est GFR (Non-Af Amer) 13 (>60) L 09/30/16 05:39 Glucose 91 mg/dL (75-110) 09/30/16 05:39 Calcium 7.5 mg/dL (8.4-10.2) L 09/30/16 05:39 Magnesium 1.6 mg/dL (1.6-2.3) 09/30/16 05:39 Total Bilirubin 0.8 mg/dL (0.2-1.3) 09/25/16 15:50 Direct Bilirubin 0.6 mg/dL (0.0-0.4) H 09/25/16 15:50 Indirect Bilirubin Not Reportable 09/25/16 15:50 Neonat Total Bilirubin Not Reportable 09/25/16 15:50 AST 24 U/L (17-59) 09/25/16 15:50 ALT 31 U/L (21-72) 09/25/16 15:50 Alkaline Phosphatase 91 U/L (38-126) 09/25/16 15:50 Ammonia 17.0 umol/L (9-33) 09/25/16 16:10 Creatine Kinase 34 U/L (55-170) L 09/25/16 15:50 CK-MB (CK-2) 1.19 ng/mL (<4.55) 09/25/16 15:50 Troponin I 0.014 ng/mL 09/25/16 21:08 Total Protein 5.2 g/dL (6.3-8.2) L 09/25/16 15:50 Albumin 2.2 g/dL (3.5-5.0) L 09/25/16 15:50 Urine Color YELLOW 09/25/16 16:14 Urine Appearance CLEAR 09/25/16 16:14 Urine pH 9.0 (5.0-9.0) 09/25/16 16:14 Ur Specific Tracy 1.005 09/25/16 16:14 Urine Protein 30 mg/dL (NEGATIVE) H 09/25/16 16:14 Urine Glucose (UA) NEGATIVE mg/dL (NEGATIVE) 09/25/16 16:14 Urine Ketones NEGATIVE mg/dL (NEGATIVE) 09/25/16 16:14 Urine Blood NEGATIVE (NEGATIVE) 09/25/16 16:14 Urine Nitrite NEGATIVE (NEGATIVE) 09/25/16 16:14 Urine Bilirubin NEGATIVE (NEGATIVE) 09/25/16 16:14 Urine Urobilinogen NEGATIVE mg/dL (<2.0) 09/25/16 16:14 Ur Leukocyte Esterase NEGATIVE (NEGATIVE) 09/25/16 16:14 Urine WBC (Auto) 1 /HPF 09/25/16 16:14 Urine RBC (Auto) 1 /HPF 09/25/16 16:14 Urine Ascorbic Acid NEGATIVE (NEGATIVE) 09/25/16 16:14 Urine Opiates Screen UNCONFIRMED POSITIVE 09/25/16 16:14 Urine Methadone Screen NEGATIVE 09/25/16 16:14 Ur Barbiturates Screen NEGATIVE 09/25/16 16:14 Ur Phencyclidine Scrn NEGATIVE 09/25/16 16:14 Ur Amphetamines Screen NEGATIVE 09/25/16 16:14 U Benzodiazepines Scrn NEGATIVE 09/25/16 16:14 Urine Cocaine Screen NEGATIVE 09/25/16 16:14 U Marijuana (THC) Screen NEGATIVE 09/25/16 16:14 Serum Alcohol < 10 mg/dL (NONE DETECTED) 09/25/16 15:50 Impressions: Chest X-Ray 09/25/16 15:50 IMPRESSION: NO ACUTE RADIOGRAPHIC FINDING IN THE CHEST. No significant changes from the prior study. Finger X-Ray 09/25/16 16:05 IMPRESSION: Minimally displaced fracture involving the proximal portion of the distal phalanx of the left thumb. No other fractures identified. Osteopenia. Head CT 09/25/16 19:34 IMPRESSION: Chronic ischemic changes. Transfer Plan - Disposition Transfer Plan: To rehab. Follow-up at [facility] on Friday for dialysis Follow-up with Dr. Burnette in 2 weeks. - Time Spent with Patient Time spent with patient: Greater than 30 Minutes Qualifiers PATEINT BEING DISCHARGED WITH ANY OF THE FOLLOWING DIAGNOSIS?: No
[2016-09-30 16:04] VITALS: BP 106/55
[2016-10-04] MEDS ORDERED: ERGOCALCIFEROL (VITAMIN D2) 50000 UNIT (1.25 MG) CAPSULE PO SCH (10:00)
== END 2016-09-30 19:30 ==
LOC: ER 15:01 → OBSVTOIN 20:46 → EH 20:46 → INTOOBSV 20:46 → 4S 22:45
PROVIDERS: ADMIT Family Medicine; ATTEND Family Medicine
PROC: 5A1D60Z (ICD-10-PCS; principal; 2016-09-25)
PROC: 2W3DX1Z Immobilization of Left Lower Arm using Splint (ICD-10-PCS; 2016-09-25)
DX: S62.525A Nondisplaced fracture of distal phalanx of left thumb, initial encounter for closed fracture (principal); W19.XXXA Unspecified fall, initial encounter; R26.9 Unspecified abnormalities of gait and mobility; Z60.2 Problems related to living alone; E87.6 Hypokalemia; Z74.09 Other reduced mobility; G89.29 Other chronic pain; I13.2 Hypertensive heart and chronic kidney disease with heart failure and with stage 5 chronic kidney disease, or end stage renal disease; N18.6 End stage renal disease; I50.30 Unspecified diastolic (congestive) heart failure; D63.1 Anemia in chronic kidney disease; Z99.2 Dependence on renal dialysis; Z91.15 Patient's noncompliance with renal dialysis; E88.09 Other disorders of plasma-protein metabolism, not elsewhere classified; K70.30 Alcoholic cirrhosis of liver without ascites; F17.210 Nicotine dependence, cigarettes, uncomplicated; G89.4 Chronic pain syndrome; R53.1 Weakness; S80.812A Abrasion, left lower leg, initial encounter; F41.1 Generalized anxiety disorder; M10.9 Gout, unspecified; R53.81 Other malaise; R00.0 Tachycardia, unspecified; M19.90 Unspecified osteoarthritis, unspecified site; M51.26 Other intervertebral disc displacement, lumbar region; K21.9 Gastro-esophageal reflux disease without esophagitis; R45.1 Restlessness and agitation; L89.159 Pressure ulcer of sacral region, unspecified stage; Z66 Do not resuscitate; M85.842 Other specified disorders of bone density and structure, left hand; Z79.899 Other long term (current) drug therapy; Z79.82 Long term (current) use of aspirin; Z90.49 Acquired absence of other specified parts of digestive tract; Z79.818 Long term (current) use of other agents affecting estrogen receptors and estrogen levels; Z85.828 Personal history of other malignant neoplasm of skin; Z87.11 Personal history of peptic ulcer disease; Z87.19 Personal history of other diseases of the digestive system
CPT/HCPCS: 29125; G0257; 36415; 70450; 71010; 80048; 80053; 80307; 81001; 82140; 82550; 82553; 82803; 83735; 84132; 84484; 85025; 85027; 85610; 87040; 87086; 99285; G0378; G8978-GP; G8979-GP; G8987-GO; G8988-GO; J1644; J3490; P9047; S0119

== ENCOUNTER 2016-10-16 16:51 | Inpatient (IN) | payer MEDICARE, OTHER ==
--- NOTE | 2016-10-16 17:27 | ER Document Report ---
ED General - General Stated Complaint: FATIGUE AND WEAKNESS Time Seen by Provider: 10/16/16 17:04 Mode of Arrival: Stretcher Information source: Patient TRAVEL OUTSIDE OF THE [place] IN LAST 30 DAYS: No - HPI Notes: 66-year-old male presents from dialysis after completing dialysis with generalized weakness stating he is very "tired and sleepy". He denies any other problems otherwise. He gets dialysis Friday has a history of end-stage renal disease including multiple other medical problems. He denies fever. Denies nausea vomiting diarrhea, cough cold symptoms rhinorrhea or sore throat. Denies any excessive medication use. - Related Data Allergies/Adverse Reactions: No Known Allergies Allergy (Verified 10/16/16 17:40) Home Medications: Current Home Medications Clonidine HCl [Catapres 0.2 mg Tablet] 0.2 mg PO MOWEFR@2100 10/16/16 [History] Hydromorphone HCl [Dilaudid] 4 mg PO Q8HP PRN 10/16/16 [History] Mirtazapine [Remeron 15 mg Tablet] 15 mg PO QHS 10/16/16 [History] Vit B Cmplx 3/FA/Vit C/Biotin [Ina-Anthony Rx Tablet] 1 tab PO DAILY 10/16/16 [ History] Past Medical History - Social History Smoking Status: Former Smoker Family History: Reviewed & Not Pertinent - Past Medical History Cardiac Medical History: Reports: Hx Congestive Heart Failure, Hx Hypertension Denies: Hx Coronary Artery Disease, Hx DVT, Hx Heart Attack, Hx Hypercholesterolemia, Hx Pulmonary Embolism Pulmonary Medical History: Denies: Hx Asthma, Hx Bronchitis, Hx COPD, Hx Pneumonia, Hx Sleep Apnea Neurological Medical History: Denies: Hx Cerebrovascular Accident, Hx Seizures Endocrine Medical History: Denies: Hx Diabetes Mellitus Type 1, Hx Diabetes Mellitus Type 2, Hx Hyperthyroidism, Hx Hypothyroidism Renal/ Medical History: Reports: Hx End Stage Renal Disease, Hx Hemodialysis, Hx Kidney Stones. Denies: Hx Peritoneal Dialysis - HEMO Malignancy Medical History: Reports Hx Skin Cancer GI Medical History: Reports: Hx Cirrhosis, Hx Gastroesophageal Reflux Disease, Hx Ulcer Musculoskeltal Medical History: Reports Hx Arthritis, Reports Hx Gout Psychiatric Medical History: Denies: Hx Depression Infectious Medical History: Denies: Hx C-Diff, Hx MRSA Past Surgical History: Reports: Hx Appendectomy, Hx Cholecystectomy, Hx Herniorrhaphy, Hx Orthopedic Surgery - B elbow, R wrist, Hx Vascular Surgery - Perm catheter for dialysis; fistula formation, maturing, for dialysis., Other - Cataract extraction - Immunizations Immunizations up to date: No Hx Diphtheria, Pertussis, Tetanus Vaccination: Yes Hx Pneumococcal Vaccination: 12/29/14 Review of Systems - Review of Systems -: Yes All other systems reviewed and negative Physical Exam - Vital signs Vitals: Temp Pulse Resp BP Pulse Ox 101.2 F H 125 H 18 149/76 H 96 10/16/16 16:55 10/16/16 16:55 10/16/16 16:55 10/16/16 16:55 10/16/16 16:55 Interpretation: Tachycardic - Notes Notes: GENERAL: VS as per nursing doc. Thin male in no acute distress. HEAD: Atraumatic, normocephalic. EYES: Pupils 1 mm, sclera anicteric, no conjunctival injection or discharge. ENT: Nares patent, oropharynx clear without exudates, somewhat dry mucous membranes. NECK: Supple. LUNGS: Sounds coarse, fine basilar rales HEART: Tachycardic, irregularly irregular ABDOMEN: Soft, non-tender BACK: No CVA tenderness. EXTREMITIES: 2+ pedal edema. NEUROLOGICAL: Nonfocal, normal strength and sensation. Appears weak but has normal speech without aphasia. PSYCH: Flat affect. SKIN: Very warm, dry, normal turgor. Course - Vital Signs Vital signs: Temp Pulse Resp BP Pulse Ox 101.2 F H 125 H 19 144/62 H 94 10/16/16 16:55 10/16/16 16:55 10/16/16 19:01 10/16/16 19:01 10/16/16 19:01 - Laboratory Result Diagrams: 10/16/16 17:27 10/16/16 17:27 Laboratory results interpreted by me: 10/16/16 10/16/16 10/16/16 17:27 17:27 17:27 WBC 19.8 H RBC 4.18 L Hgb 11.7 L Hct 36.5 L RDW 19.7 H Seg Neutrophils % 80.0 H Lymphocytes % 11.0 L Absolute Neutrophils 15.9 H Absolute Monocytes 1.6 H PT 16.2 H VBG pH Carbon Dioxide 21 L Creatinine 2.97 H Est GFR ( Amer) 26 L Est GFR (Non-Af Amer) 21 L Glucose 64 L Lactic Acid Calcium 7.9 L Total Bilirubin 2.7 H Direct Bilirubin 1.6 H Total Protein 6.0 L Albumin 2.9 L Urine Protein Urine Blood Ur Leukocyte Esterase 10/16/16 10/16/16 10/16/16 17:27 17:27 18:17 WBC RBC Hgb Hct RDW Seg Neutrophils % Lymphocytes % Absolute Neutrophils Absolute Monocytes PT VBG pH 7.44 H Carbon Dioxide Creatinine Est GFR ( Amer) Est GFR (Non-Af Amer) Glucose Lactic Acid 3.0 H Calcium Total Bilirubin Direct Bilirubin Total Protein Albumin Urine Protein 100 H Urine Blood SMALL H Ur Leukocyte Esterase LARGE H - Diagnostic Test Radiology reviewed: Image reviewed, Reports reviewed - EKG Interpretation by Me Rate: Tachycardia - Heart rate 123, doubt a flutter as it appears more tremulous artifact but could represent atrial fibrillation but artifact limits complete evaluation.. Infrequent PVCs are noted. Interpretation abnormal - Consults Dr. Rodriguez Time consulted: 19:55 - Will evaluate for admission Discharge - Discharge Clinical Impression: Sepsis, Urinary tract infection, End-stage renal disease, ESRD on hemodialysis Condition: Serious Disposition: ADMITTED INPATIENT Admitting Provider: Hospitalist Unit Admitted: [facility]
[2016-10-16] MEDS ORDERED: ACETAMINOPHEN 325 MG TABLET PO ONE (17:38)
[2016-10-16 17:40] LABS: ABSOLUTE BASOPHILS # (AUTO) 0.2 10^3/uL (0.0-0.2); ABSOLUTE EOSINOPHILS # (AUTO) 0.1 10^3/uL (0.0-0.6); ABSOLUTE LYMPHOCYTES (AUTO) 2.2 10^3/uL (0.5-4.7); ABSOLUTE MONOCYTES (AUTO) 1.6 10^3/uL (0.1-1.4); ABSOLUTE NEUT (AUTO) 15.9 10^3/uL (1.7-8.2); BASOPHILS % (AUTO) 0.8 % (0-2); EOSINOPHILS % (AUTO) 0.3 % (0-6); HEMATOCRIT 36.5 % (37.9-51.0); HEMOGLOBIN 11.7 g/dL (13.5-17.0); HGB HCT DIFFERENCE -1.4; MEAN CORPUSCULAR HEMOGLOBIN 28.1 pg (27.0-33.4); MEAN CORPUSCULAR HGB CONC 32.1 g/dL (32.0-36.0); MEAN CORPUSCULAR VOLUME 88 fl (80-97); MONOCYTES % (AUTO) 7.9 % (3-13); RED BLOOD COUNT 4.18 10^6/uL (4.35-5.55); RED CELL DISTRIBUTION WIDTH 19.7 % (11.5-14.0); WHITE BLOOD COUNT 19.8 10^3/uL (4.0-10.5)
[2016-10-16 17:43] LABS: VENOUS BLOOD BASE EXCESS 0.8 mmol/L; VENOUS BLOOD PCO2 37.7 mmHg (35-63); VENOUS BLOOD PH 7.44 (7.30-7.42)
[2016-10-16 17:45] LABS: PROTHROMBIN TIME 16.2 SEC (11.4-15.4)
[2016-10-16] MEDS ORDERED: PIPERACILLIN/TAZOBACTAM 3.375 GM VIAL IV ONE (17:51)
[2016-10-16] MEDS ORDERED: NORMAL SALINE IV ONE (17:59)
[2016-10-16 18:04] LABS: ALANINE AMINOTRANSFERASE 24 U/L (21-72); ALBUMIN 2.9 g/dL (3.5-5.0); ALKALINE PHOSPHATASE 109 U/L (38-126); ANION GAP 14 (5-19); ASPARTATE AMINO TRANSFERASE 51 U/L (17-59); BILIRUBIN,DIRECT 1.6 mg/dL (0.0-0.4); BILIRUBIN,TOTAL 2.7 mg/dL (0.2-1.3); BLOOD UREA NITROGEN 17 mg/dL (7-20); CALCIUM 7.9 mg/dL (8.4-10.2); CARBON DIOXIDE 21 mmol/L (22-30); CHLORIDE 105 mmol/L (98-107); CREATININE RESULT 2.97 mg/dL (0.52-1.25); GLUCOSE 64 mg/dL (75-110); POTASSIUM 4.3 mmol/L (3.6-5.0); SODIUM 139.9 mmol/L (137-145)
--- NOTE | 2016-10-16 18:19 | RADIOLOGY REPORT (SQ) ---
EXAM DESCRIPTION: CHEST SINGLE VIEW COMPLETED DATE/TIME: 10/16/2016 5:48 pm REASON FOR STUDY: bed 1 sepsis protocol COMPARISON: 09/25/2016 EXAM PARAMETERS: NUMBER OF VIEWS: One view. TECHNIQUE: Single frontal radiographic view of the chest acquired. RADIATION DOSE: NA LIMITATIONS: None. FINDINGS: LUNGS AND PLEURA: No opacities, masses or pneumothorax. No pleural effusion. MEDIASTINUM AND HILAR STRUCTURES: No masses. Contour normal. HEART AND VASCULAR STRUCTURES: Heart normal in size. Normal vasculature. BONES: No acute findings. HARDWARE: Right IJ hemodialysis catheter noted with tip in the right atrium. EKG leads overlie the c hest. OTHER: No other significant finding. IMPRESSION: NO ACUTE RADIOGRAPHIC FINDING IN THE CHEST. TECHNICAL DOCUMENTATION: JOB ID: [id number]
[2016-10-16 18:41] LABS: APPEARANCE,URINE SLIGHTLY-CLOUDY; BILIRUBIN,URINE NEGATIVE (NEGATIVE); GLUCOSE, URINE NEGATIVE (NEGATIVE); KETONES,URINE NEGATIVE (NEGATIVE); LEUKOCYTE ESTERASE,URINE LARGE (NEGATIVE); NITRITE,URINE NEGATIVE (NEGATIVE); PROTEIN,URINE 100 mg/dL (NEGATIVE); URINE SPECIFIC GRAVITY 1.008; UROBILINOGEN,URINE NEGATIVE mg/dL (<2.0)
[2016-10-16] MEDS ORDERED: DEXTROSE 50%-WATER 25 GM/50 ML DISP.SYRIN IV PRN ×2 (19:55)
[2016-10-16] MEDS ORDERED: GLUCAGON,HUMAN RECOMB 1 MG INJ IM PRN (19:55)
[2016-10-16] MEDS ORDERED: DEXTROSE 40% GEL 15 GM TUBE PO PRN ×2 (19:55)
[2016-10-16] MEDS ORDERED: ACETAMINOPHEN 325 MG TABLET PO PRN (20:13)
[2016-10-16] MEDS ORDERED: MAG HYDROX/AL HYDROX/SIMETH SUSP 30 ML UDCUP PO PRN (20:13)
[2016-10-16] MEDS ORDERED: NICOTINE 21 MG/24 HR PATCH.TD24 TD SCH (20:30)
[2016-10-16 20:47] LABS: MAGNESIUM 1.4 mg/dL (1.6-2.3); PHOSPHORUS 2.9 mg/dL (2.5-4.5)
[2016-10-16] MEDS ORDERED: NICOTINE 21 MG/24 HR PATCH.TD24 TD ONE (21:00)
--- NOTE | 2016-10-16 21:06 | RADIOLOGY REPORT (SQ) ---
EXAM DESCRIPTION: ABDOMEN 2 VIEWS COMPLETED DATE/TIME: 10/16/2016 8:43 pm REASON FOR STUDY: llq pain hx chronic pain and dilaudid COMPARISON: 01/04/2014 NUMBER OF VIEWS: Two views. TECHNIQUE: Supine and erect/decubitus radiographic images of the abdomen acquired. LIMITATIONS: None. FINDINGS: FREE AIR: None. No abnormal gas collections. LUNG BASES: Clear. Tunneled hemodialysis catheter in on the right there BOWEL GAS PATTERN: Nonobstructive pattern. No dilated loops or air fluid levels. Moderate amount of stool projects over the rectum. CALCIFICATIONS: No suspicious calcifications. Pelvic phleboliths, similar to prior studies SOFT TISSUES: No gross mass or suggestion of organomegaly. HARDWARE: Previously placed double-J ureteral stent has been removed. EKG leads overlie the chest. BONES: No acute fracture. No worrisome bone lesions. OTHER: Extensive vascular calcifications noted throughout. IMPRESSION: NO RADIOGRAPHIC EVIDENCE FOR ACUTE ABDOMINAL DISEASE. Moderate amount of stool projects over the rectum. TECHNICAL DOCUMENTATION: JOB ID: [id number] All Rights Reserved
[2016-10-16] MEDS: DEXTROSE 5%-1/2 NORMAL SALINE 1,000 ML IV SCH (21:43)
[2016-10-16] MEDS ORDERED: MINERAL OIL ENEMA 133 ML PR ONE (21:48)
[2016-10-16] MEDS ORDERED: LACTULOSE SYRUP 20 GM/30 ML UDCUP PO ONE (21:48)
[2016-10-16] MEDS ORDERED: HYDROMORPHONE HCL 2 MG PO PRN (21:48)
[2016-10-16] MEDS ORDERED: HYDROMORPHONE HCL INJ/PF 2 MG/ML AMPULE IV PRN (21:51)
[2016-10-16] MEDS: HEPARIN SOD (PORCINE) 5,000 UNIT/ML 1 ML SYRINGE SUBCUT SCH (22:44)
[2016-10-16] MEDS: MIRTAZAPINE 15 MG TABLET PO SCH (23:39)
[2016-10-16] MEDS: IPRATROPIUM/ALBUTEROL 0.5-2.5 MG/3 ML AMPUL NEB SCH (23:59)
[2016-10-17] MEDS ORDERED: PIPERACILLIN SODIUM/TAZOBACTAM 3.375 GM in NORMAL SALINE 100 ML IV SCH ×2
[2016-10-17] MEDS: DEXTROSE 5%-1/2 NORMAL SALINE 1,000 ML IV SCH (03:08)
[2016-10-17] MEDS: HEPARIN SOD (PORCINE) 5,000 UNIT/ML 1 ML SYRINGE SUBCUT SCH ×3 (05:03→21:01)
[2016-10-17 06:51] LABS: ABSOLUTE LYMPHOCYTES (AUTO) 1.8 10^3/uL (0.5-4.7); ABSOLUTE MONOCYTES (AUTO) 1.5 10^3/uL (0.1-1.4); ABSOLUTE NEUT (AUTO) 23.9 10^3/uL (1.7-8.2); BASOPHILS % (AUTO) 0.2 % (0-2); HEMATOCRIT 30.8 % (37.9-51.0); HGB HCT DIFFERENCE -0.8; LYMPHOCYTES % (AUTO) 6.5 % (13-45); MEAN CORPUSCULAR HEMOGLOBIN 29.1 pg (27.0-33.4); MEAN CORPUSCULAR HGB CONC 32.6 g/dL (32.0-36.0); MEAN CORPUSCULAR VOLUME 89 fl (80-97); MONOCYTES % (AUTO) 5.6 % (3-13); RED BLOOD COUNT 3.45 10^6/uL (4.35-5.55); RED CELL DISTRIBUTION WIDTH 19.1 % (11.5-14.0); SEGMENTED NEUTROPHILS % (AUTO) 87.7 % (42-78); WHITE BLOOD COUNT 27.2 10^3/uL (4.0-10.5)
[2016-10-17 06:53] LABS: BASOPHILS % (MANUAL) 0 % (0-2); EOSINOPHILS % (MANUAL) 0 % (0-6); LYMPHOCYTES % (MANUAL) 5 % (13-45); TOTAL CELLS COUNTED 100
[2016-10-17 06:54] LABS: ANISOCYTOSIS 2+; POIKILOCYTOSIS 1+; TARGET CELLS 1+; TOXIC VACUOLATION PRESENT
--- NOTE | 2016-10-17 06:57 | PDOC H&P ---
History of Present Illness Admission Date/PCP: 10/16/16 20:13 Patient complains of: Fever and fatigue History of Present Illness: DANIEL MAGUIRE JR is a 66 year old male with a past medical history of noncompliance, tobacco dependence, congestive heart failure, peripheral vascular disease, Gait disorder end-stage renal failure on hemodialysis Friday, Dilaudid dependent chronic pain, has been in his usual state of health until 12 hours prior to presentation with complaints of arthralgias sore throat nonproductive cough. He tolerated hemodialysis to completion that was noted to have a fever of 101.2 prompting evaluation emergency room where he found to have urinalysis suggestive of UTI markedly leukocytosis and left lower quadrant pain. He is started on empiric antibiotics and referred to the hospitalist for admission. The patient's family is helpful however patient is minimally cooperative and swearing at hospital staff. He is not known to have new medications however he is thought to possibly take an additional Dilaudid. Past Medical History Cardiac Medical History: Reports: Congestive Heart Failure, Hypertension Denies: Coronary Artery Disease, DVT, Myocardial Infarction, Hyperlipidema, Pulmonary Embolism Pulmonary Medical History: Denies: Asthma, Bronchitis, Chronic Obstructive Pulmonary Disease (COPD), Pneumonia, Sleep Apnea Neurological Medical History: Denies: Seizures Endocrine Medical History: Denies: Diabetes Mellitus Type 1, Diabetes Mellitus Type 2, Hyperthyroidism, Hypothyroidism Renal/ Medical History: Reports: End Stage Renal Disease Malignancy Medical History: Reports: Skin Cancer GI Medical History: Reports: Cirrhosis, Gastroesophageal Reflux Disease Musculoskeltal Medical History: Reports: Arthritis, Gout Psychiatric Medical History: Denies: Depression Hematology: Denies: Anemia Infectious Medical History: Denies: Clostridium Difficile, Methicillin-Resistant Staph Aureus Past Surgical History Past Surgical History: Reports: Appendectomy, Cholecystectomy, Herniorrhaphy, Orthopedic Surgery - B elbow, R wrist, Vascular Surgery - Perm catheter for dialysis; fistula formation, maturing, for dialysis., Other - Cataract extraction Social History Information Source: Patient Smoking Status: Current Every Day Smoker Cigarettes Packs Per Day: 2 Number of Years Smokin Last Time Smoked: 10/06/2016 Frequency of Alcohol Use: None Hx Recreational Drug Use: No Drugs: None - Advance Directive Resuscitation Status: Full Code Family History Family History: Hypertension Parental Family History Reviewed: Yes Children Family History Reviewed: Yes Sibling(s) Family History Reviewed.: Yes Medication/Allergy Home Medications: Amlodipine Besylate 10 mg PO SUTUTHSA@1000 09/27/16 Dexlansoprazole [Dexilant 60 mg Capsule] 60 mg PO DAILY 09/27/16 Dicyclomine HCl [Bentyl 10 mg Capsule] 10 mg PO Q12 09/27/16 Isosorbide Mononitrate [Isosorbide Mononitrate ER] 30 mg PO SUTUTHSA@1000 Megestrol Acetate [Megace] 400 mg PO DAILY 09/27/16 Aspirin [Ecotrin 81 mg EC Tablet] 81 mg PO DAILY 09/28/16 Bumetanide [Bumex 2 mg Tablet] 4 mg PO SUTUTHSA@1000 09/28/16 Colchicine [Colchicine 0.6 mg Tablet] 0.6 mg PO DAILYP PRN 09/28/16 Ergocalciferol (Vitamin D2) [Vitamin D2] 50,000 unit PO FR@1000 09/28/16 Nicotine [Nicoderm 21 mg/24 Hr Transderm Patch] 1 patch TD DAILY 09/28/16 Ondansetron HCl [Zofran 4 mg Tablet] 4 mg PO Q6HP PRN 09/28/16 Clonidine HCl [Catapres 0.2 mg Tablet] 0.2 mg PO MOWEFR@2100 10/16/16 Clonidine HCl [Catapres 0.2 mg Tablet] 0.2 mg PO Q12 10/16/16 Hydromorphone HCl [Dilaudid] 4 mg PO Q8HP PRN 10/16/16 Mirtazapine [Remeron 15 mg Tablet] 15 mg PO QHS 10/16/16 Vit B Cmplx 3/FA/Vit C/Biotin [Ina-Anthony Rx Tablet] 1 tab PO DAILY 10/16/16 Allergies/Adverse Reactions: No Known Allergies Allergy (Verified 10/16/16 17:40) Review of Systems Constitutional: PRESENT: anorexia, fatigue, weakness, weight loss Eyes: ABSENT: visual disturbances Ears: ABSENT: hearing changes Cardiovascular: ABSENT: chest pain, dyspnea on exertion, edema, orthropnea, palpitations Respiratory: ABSENT: cough, hemoptysis Gastrointestinal: ABSENT: abdominal pain, constipation, diarrhea, hematemesis, hematochezia, nausea, vomiting Genitourinary: ABSENT: dysuria, hematuria Musculoskeletal: ABSENT: joint swelling Integumentary: ABSENT: rash, wounds Neurological: ABSENT: abnormal gait, abnormal speech, confusion, dizziness, focal weakness, syncope Psychiatric: ABSENT: anxiety, depression, homidical ideation, suicidal ideation Endocrine: ABSENT: cold intolerance, heat intolerance, polydipsia, polyuria Hematologic/Lymphatic: ABSENT: easy bleeding, easy bruising Physical Exam Vital Signs: Temp Pulse Resp BP Pulse Ox 99.2 F 104 H 20 119/61 95 10/17/16 03:53 10/17/16 03:53 10/17/16 03:53 10/17/16 03:53 10/17/16 00:00 Intake & Output 10/15/16 10/16/16 10/17/16 11:59 11:59 11:59 Intake Total 960 Output Total 0 Balance 960 Weight 49.4 kg General appearance: PRESENT: no acute distress, disheveled, thin, other - Chronically ill-appearing, cachexia with temporal wasting. ABSENT: cooperative Head exam: PRESENT: atraumatic, normocephalic Eye exam: PRESENT: conjunctiva pink, EOMI, PERRLA. ABSENT: scleral icterus Ear exam: PRESENT: normal external ear exam Mouth exam: PRESENT: moist, tongue midline Neck exam: ABSENT: carotid bruit, JVD, lymphadenopathy, thyromegaly Respiratory exam: PRESENT: clear to auscultation nan, prolonged expiratory phas. ABSENT: accessory muscle use, crackles, rales, rhonchi, wheezes Cardiovascular exam: PRESENT: RRR. ABSENT: diastolic murmur, rubs, systolic murmur Pulses: PRESENT: normal dorsalis pedis pul Vascular exam: PRESENT: normal capillary refill GI/Abdominal exam: PRESENT: normal bowel sounds, soft, tenderness - Left lower quadrant pain without guarding. ABSENT: distended, guarding, mass, organolmegaly, rebound Rectal exam: PRESENT: deferred Extremities exam: PRESENT: full ROM. ABSENT: calf tenderness, clubbing, pedal edema Neurological exam: PRESENT: alert, awake, oriented to person, oriented to place , oriented to time, oriented to situation, CN II-XII grossly intact. ABSENT: motor sensory deficit Psychiatric exam: PRESENT: other - Angry Skin exam: PRESENT: other - Erythema and eschar with irregular borders on the left wrist suggestive of calciphylaxis Results Laboratory Results: 10/16/16 10/17/16 21:50 04:56 Seg Neutrophils % Not Reportable Lymphocytes % Not Reportable Monocytes % Not Reportable Eosinophils % Not Reportable Basophils % Not Reportable Absolute Neutrophils Not Reportable Absolute Lymphocytes Not Reportable Absolute Monocytes Not Reportable Absolute Eosinophils Not Reportable Absolute Basophils Not Reportable Lactic Acid 2.0 Impressions: Chest X-Ray 10/16/16 16:54 IMPRESSION: NO ACUTE RADIOGRAPHIC FINDING IN THE CHEST. Abdomen X-Ray 10/16/16 20:18 IMPRESSION: NO RADIOGRAPHIC EVIDENCE FOR ACUTE ABDOMINAL DISEASE. Moderate amount of stool projects over the rectum. Assessment & Plan - Diagnosis (1) Sepsis Is this a current diagnosis for this admission?: YesPlan: Likely secondary to urinary tract infection, IV fluid challenge, empiric antibiotics initiated follow blood and urine culture CBC (2) Constipation Is this a current diagnosis for this admission?: YesPlan: Possibly early diverticulitis complicated by opiate dependence. Lactulose consider enema and bowel regiment. (3) ESRD (end stage renal disease) Is this a current diagnosis for this admission?: YesPlan: Hemodialysis Friday with Dr. Billy consulted. Follow-up chemistry avoid nephrotoxic meds and doses as he is oliguric (4) UTI (urinary tract infection) Is this a current diagnosis for this admission?: YesPlan: Empiric antibiotics initiated follow-up culture and CBC (5) Ambulatory dysfunction Is this a current diagnosis for this admission?: YesPlan: Physical therapy as tolerated (6) Chronic pain Qualifiers: Chronic pain type: chronic pain syndrome Qualified Code(s): G89.4 - Chronic pain syndrome Is this a current diagnosis for this admission?: YesPlan: Obtain outpatient regiment with bowel prophylaxis. - Time Time Spent: 50 to 70 Minutes - Inpatient Certification Medical Necessity: Need Close Monitoring Due to Risk of Patient Decompensation
[2016-10-17] MEDS ORDERED: PHARMACY COMMUNICATION ORDER MC NR (07:45)
[2016-10-17] MEDS: IPRATROPIUM/ALBUTEROL 0.5-2.5 MG/3 ML AMPUL NEB SCH ×2 (08:24→15:35)
[2016-10-17] MEDS: MAGNESIUM SULFATE/D5W 100 ML IV SCH ×2 (08:58→10:14)
[2016-10-17 09:29] LABS: ALANINE AMINOTRANSFERASE 25 U/L (21-72); ALBUMIN 2.2 g/dL (3.5-5.0); ALKALINE PHOSPHATASE 79 U/L (38-126); ANION GAP 14 (5-19); ASPARTATE AMINO TRANSFERASE 46 U/L (17-59); BILIRUBIN,DIRECT 0.8 mg/dL (0.0-0.4); BLOOD UREA NITROGEN 20 mg/dL (7-20); CARBON DIOXIDE 18 mmol/L (22-30); CHLORIDE 105 mmol/L (98-107); CREATININE RESULT 3.33 mg/dL (0.52-1.25); GLUCOSE 240 mg/dL (75-110); MAGNESIUM 1.3 mg/dL (1.6-2.3); POTASSIUM 3.5 mmol/L (3.6-5.0); SODIUM 136.7 mmol/L (137-145); TOTAL PROTEIN 4.9 g/dL (6.3-8.2)
[2016-10-17 09:40] LABS: CALCIUM 6.7 mg/dL (8.4-10.2)
[2016-10-17] MEDS ORDERED: CLONIDINE HCL 0.2 MG TABLET PO SCH (10:00)
[2016-10-17] MEDS ORDERED: NICOTINE 21 MG/24 HR PATCH.TD24 TD SCH (10:00)
[2016-10-17] MEDS ORDERED: MEGESTROL ACETATE 400 MG PO SCH (10:00)
[2016-10-17] MEDS ORDERED: DOCUSATE SODIUM 100 MG CAPSULE PO SCH (10:00)
[2016-10-17] MEDS: AMLODIPINE BESYLATE 10 MG TABLET PO SCH (10:15)
[2016-10-17] MEDS: FOLIC ACID/VITAMIN B COMP W-C CAPSULE PO SCH (10:15)
[2016-10-17] MEDS: NICOTINE 21 MG/24 HR PATCH.TD24 TD SCH (10:16)
[2016-10-17] MEDS: ISOSORBIDE MONONITRATE 30 MG TAB.ER.24H PO SCH (10:16)
[2016-10-17] MEDS: MEGESTROL ACETATE SUSP 400 MG/10 ML UDCUP PO SCH (10:22)
[2016-10-17] MEDS: ASPIRIN 81 MG TABLET, ENT COATED PO SCH (10:23)
[2016-10-17] MEDS ORDERED: CALCIUM GLUCONATE 1000 MG/10 ML INJ IV ONE (10:36)
[2016-10-17] MEDS: PIPERACILLIN SODIUM/TAZOBACTAM 2.25 GM in NORMAL SALINE 50 ML IV SCH ×2 (12:29→17:16)
[2016-10-17] MEDS: INSULIN LISPRO 100 UNIT/ML 3 ML VIAL SUBCUT PRN (12:29)
[2016-10-17] MEDS ORDERED: MAGNESIUM SULFATE/D5W 1 GM/100 ML RTUPB IV ONE (13:35)
--- NOTE | 2016-10-17 15:40 | PDOC PROGRESS REPORT ---
Subjective Progress Note for:: 10/17/16 Subjective:: Patient was previously constipated, but received lactulose and is now having diarrhea. He reports he is feeling better than admission. He reports he has not yet back to baseline. Patient denies chest pain, shortness of breath, abdominal pain, nausea, vomiting , constipation, headache, new onset weakness]. Physical Exam Vital Signs: Temp Pulse Resp BP Pulse Ox 98.0 F 117 H 18 117/59 L 100 10/17/16 11:07 10/17/16 11:07 10/17/16 11:07 10/17/16 11:07 10/17/16 11:07 Intake & Output 10/16/16 10/17/16 10/18/16 06:59 06:59 06:59 Intake Total 960 50 Output Total 0 175 Balance 960 -125 Weight 49.4 kg Exam: General: Thin, chronically ill appearing, older than stated age appearing, Awake alert and oriented x3, no acute respiratory distress HEENT: AT/NC, PERRL,EOMI, oropharynx is moist, pink, no scleral icterus, no conjunctival injection Neck: No JVD, trachea midline Chest: Clear to auscultation bilaterally, no wheezes rhonchi or rales CV: Regular rate and rhythm, normal S1 and S2, no rub, or gallop Abdomen: Soft, nontender to palpation, nondistended, active bowel sounds; no rebound, rigidity, or guarding Extremities: No cyanosis, clubbing or edema Neuro: Cranial nerves II through XII are grossly intact without focal deficits; awake alert and oriented x3 Psych: Normal mood and affect Results Laboratory Results: 10/17/16 04:56 10/17/16 08:28 10/16/16 10/17/16 10/17/16 21:50 04:56 04:56 WBC 27.2 H RBC 3.45 L Hgb 10.0 L Hct 30.8 L MCV 89 MCH 29.1 MCHC 32.6 RDW 19.1 H Plt Count 168 Seg Neutrophils % 87.7 H Lymphocytes % 6.5 L Monocytes % 5.6 Eosinophils % 0.0 Basophils % 0.2 Absolute Neutrophils 23.9 H Absolute Lymphocytes 1.8 Absolute Monocytes 1.5 H Absolute Eosinophils 0.0 Absolute Basophils 0.0 Sodium Cancelled Potassium Cancelled Chloride Cancelled Carbon Dioxide Cancelled Anion Gap Cancelled BUN Cancelled Creatinine Cancelled Est GFR ( Amer) Cancelled Est GFR (Non-Af Amer) Cancelled Glucose Cancelled Lactic Acid 2.0 Calcium Cancelled Magnesium Total Bilirubin Cancelled AST Cancelled ALT Cancelled Alkaline Phosphatase Cancelled Total Protein Cancelled Albumin Cancelled 10/17/16 08:28 WBC RBC Hgb Hct MCV MCH MCHC RDW Plt Count Seg Neutrophils % Lymphocytes % Monocytes % Eosinophils % Basophils % Absolute Neutrophils Absolute Lymphocytes Absolute Monocytes Absolute Eosinophils Absolute Basophils Sodium 136.7 L Potassium 3.5 L Chloride 105 Carbon Dioxide 18 L Anion Gap 14 BUN 20 Creatinine 3.33 H Est GFR ( Amer) 22 L Est GFR (Non-Af Amer) 19 L Glucose 240 H Lactic Acid Calcium 6.7 L* Magnesium 1.3 L Total Bilirubin 1.0 AST 46 ALT 25 Alkaline Phosphatase 79 Total Protein 4.9 L Albumin 2.2 L Impressions: Chest X-Ray 10/16/16 16:54 IMPRESSION: NO ACUTE RADIOGRAPHIC FINDING IN THE CHEST. Abdomen X-Ray 10/16/16 20:18 IMPRESSION: NO RADIOGRAPHIC EVIDENCE FOR ACUTE ABDOMINAL DISEASE. Moderate amount of stool projects over the rectum. Assessment & Plan - Diagnosis (1) Protein-calorie malnutrition, moderate Is this a current diagnosis for this admission?: YesPlan: Consult dietary (2) ESRD on hemodialysis Is this a current diagnosis for this admission?: Yes (3) Sepsis Qualifiers: Sepsis type: sepsis due to unspecified organism Qualified Code(s): A41.9 - Sepsis, unspecified organism Is this a current diagnosis for this admission?: YesPlan: Patient with gram-negative sepsis secondary to urinary tract infection. Unable to bolus patient secondary to his end-stage renal disease. (4) UTI (urinary tract infection) Qualifiers: Urinary tract infection type: acute cystitis Hematuria presence: without hematuria Qualified Code(s): N30.00 - Acute cystitis without hematuria Is this a current diagnosis for this admission?: YesPlan: Patient is currently growing gram-negative rods. On Zosyn day #1. (5) Anemia in chronic kidney disease (CKD) Qualifiers: Chronic kidney disease stage: on chronic dialysis Qualified Code(s) : N18.6 - End stage renal disease; D63.1 - Anemia in chronic kidney disease; Z99.2 - Dependence on renal dialysis Is this a current diagnosis for this admission?: YesPlan: Defer to nephrology for Epogen (6) Chronic pain Qualifiers: Chronic pain type: chronic pain syndrome Qualified Code(s): G89.4 - Chronic pain syndrome Is this a current diagnosis for this admission?: Yes (7) Hypertension Is this a current diagnosis for this admission?: YesPlan: Continue patient's home regime with hold parameters. (8) Hypoalbuminemia Is this a current diagnosis for this admission?: YesPlan: Protein supplementation (9) Constipation Qualifiers: Constipation type: unspecified constipation type Qualified Code(s): K59.00 - Constipation, unspecified Is this a current diagnosis for this admission?: NoPlan: resolved (10) DNR (do not resuscitate) Is this a current diagnosis for this admission?: YesPlan: karie Zheng - Time Time Spent with patient: 25-34 minutes Medications reviewed and adjusted accordingly: Yes Anticipated discharge: Home Within: within 48 hours, within 72 hours - Inpatient Certification Based on my medical assessment, after consideration of the patient's comorbidities, presenting symptoms, or acuity I expect that the services needed warrant INPATIENT care.: Yes I certify that my determination is in accordance with my understanding of Medicare's requirements for reasonable and necessary INPATIENT services [42 CFR 412.3e].: Yes Medical Necessity: Need For IV Fluids, Need for IV Antibiotics 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
[2016-10-17] MEDS ORDERED: MAGNESIUM SULFATE/D5W 1 GM/100 ML RTUPB IV SCH (16:00)
[2016-10-17] MEDS ORDERED: OXYCODONE HCL IR 5 MG TABLET PO PRN (17:22)
--- NOTE | 2016-10-17 20:19 | PDOC CONSULTATION ---
Consultation Consult Date: 10/17/16 Attending physician:: ANTWAN RODRIGUEZ Consult reason:: I was asked by the hospitalist service to see this patient to supervise hemodialysis while he in the hospital. History of Present Illness Admission Date/PCP: 10/16/16 20:13 History of Present Illness: DANIEL MAGUIRE JR is a 66 year old male with a past medical history of noncompliance, tobacco dependence, congestive heart failure, peripheral vascular disease, Gait disorder, liver cirrhosis, end-stage renal failure on hemodialysis Friday, Dilaudid dependent chronic pain, has been in his usual state of health until 12 hours prior to presentation with complaints of arthralgias sore throat nonproductive cough. He tolerated hemodialysis to completion that was noted to have a fever of 101.2 prompting evaluation emergency room where he found to have urinalysis suggestive of UTI markedly leukocytosis and left lower quadrant pain. He is started on empiric antibiotics and referred to the hospitalist for admission. The patient's family is helpful however patient is minimally cooperative and swearing at hospital staff. He is not known to have new medications however he is thought to possibly take an additional Dilaudid. When I saw the patient today he looks much better than when I saw him yesterday afternoon during dialysis treatment. Patient is more awake and more communicative. He tells me after dialysis yesterday he went home for about 4-5 hours and then he started having fevers. Subsequently he was brought to the emergency room as above. Currently the patient is receiving IV antibiotics. He admits that he feels better today. His appetite is still not very good and he only eats very little. Tomorrow will be used next dialysis today. Past Medical History Cardiac Medical History: Reports: CHF-Diastolic, Hypertension-primary, Pulmonary Hypertension Neurological Medical History: Reports: Other - History of lumbar disc herniation with chronic back pain and chronic pain medications by pain management. Renal/ Medical History: Reports: End Stage Renal Disease, Hyperphosphatemia, Proteinuria Malignancy Medical History: Reports: Skin Cancer GI Medical History: Reports: Cirrhosis, Gastroesophageal Reflux Disease, Peptic Ulcer Disease Musculoskeltal Medical History: Reports: Arthritis, Gout Psychiatric Medical History: Reports: Depression, General Anxiety Disorder, Tobacco Dependency Hematology Medical History: Reports Anemia of Chronic Kidney Disease, Reports Iron Deficiency Anemia Past Surgical History Past Surgical History: Reports: Appendectomy, Cholecystectomy, Cystostomy - With insertion of ureteral stent, subsequently removed., Dialysis Access Surgery AVF, Herniorrhaphy, Orthopedic Surgery - B elbow, R wrist, Vascular Surgery - Perm catheter for dialysis; fistula formation, maturing, for dialysis. , Other - Cataract extraction Social History Information Source: Patient Lives with: Alone Smoking Status: Current Every Day Smoker Cigarettes Packs Per Day: 2 Number of Years Smokin Last Time Smoked: 10/06/2016 Frequency of Alcohol Use: None Hx Recreational Drug Use: No Drugs: None Hx Prescription Drug Abuse: No - Advance Directive Resuscitation Status: Do Not Resuscitate Family History Family History: Malignancy - Breast cancer in his mother, Other - Cirrhosis in his father Parental Family History Reviewed: Yes Children Family History Reviewed: Yes Sibling(s) Family History Reviewed.: Yes Medication/Allergy Home Medications: Amlodipine Besylate 10 mg PO SUTUTHSA@1000 09/27/16 Dexlansoprazole [Dexilant 60 mg Capsule] 60 mg PO DAILY 09/27/16 Dicyclomine HCl [Bentyl 10 mg Capsule] 10 mg PO Q12 09/27/16 Isosorbide Mononitrate [Isosorbide Mononitrate ER] 30 mg PO SUTUTHSA@1000 Megestrol Acetate [Megace] 400 mg PO DAILY 09/27/16 Aspirin [Ecotrin 81 mg EC Tablet] 81 mg PO DAILY 09/28/16 Bumetanide [Bumex 2 mg Tablet] 4 mg PO SUTUTHSA@1000 09/28/16 Colchicine [Colchicine 0.6 mg Tablet] 0.6 mg PO DAILYP PRN 09/28/16 Ergocalciferol (Vitamin D2) [Vitamin D2] 50,000 unit PO FR@1000 09/28/16 Nicotine [Nicoderm 21 mg/24 Hr Transderm Patch] 1 patch TD DAILY 09/28/16 Ondansetron HCl [Zofran 4 mg Tablet] 4 mg PO Q6HP PRN 09/28/16 Clonidine HCl [Catapres 0.2 mg Tablet] 0.2 mg PO MOWEFR@2100 10/16/16 Clonidine HCl [Catapres 0.2 mg Tablet] 0.2 mg PO Q12 10/16/16 Hydromorphone HCl [Dilaudid] 4 mg PO Q8HP PRN 10/16/16 Mirtazapine [Remeron 15 mg Tablet] 15 mg PO QHS 10/16/16 Vit B Cmplx 3/FA/Vit C/Biotin [Ina-Anthony Rx Tablet] 1 tab PO DAILY 10/16/16 Allergies/Adverse Reactions: No Known Allergies Allergy (Verified 10/16/16 17:40) Review of Systems All systems: reviewed and no additional remarkable complaints except as stated Review of Systems: Constitutional: [ABSENT: Headache(s), weight gain, weight loss; admits fever, chills, and fatigue, continues to have no appetite almost anorexic despite Megace] Eyes: [ABSENT: visual disturbances] Ears:[ ABSENT: hearing changes] Cardiovascular: [ABSENT: chest pain, dyspnea on exertion, edema, orthropnea, palpitations] Respiratory: [ABSENT: cough, dyspnea, hemoptysis] Gastrointestinal: [ABSENT: abdominal pain, constipation, diarrhea, hematemesis, hematochezia, nausea, vomiting] Genitourinary: [ABSENT: dysuria, hematuria] Musculoskeletal: [ABSENT: joint swelling; complaints of left rib cage pain] Integumentary:[ ABSENT: rash, wounds] Neurological: [ABSENT: abnormal gait, abnormal speech, confusion, dizziness, focal weakness, numbness, syncope] Psychiatric: [ABSENT: anxiety, depression] Endocrine:[ ABSENT: Heat intolerance, polydipsia, polyuria; has cold intolerance ] Hematologic/Lymphatic: [ABSENT: easy bleeding, easy bruising, lymphadenopathy] Physical Exam Vital Signs: Temp Pulse Resp BP Pulse Ox 98.0 F 136 H 16 128/72 H 100 10/17/16 16:33 10/17/16 19:00 10/17/16 16:33 10/17/16 16:33 10/17/16 16:33 Intake & Output 10/16/16 10/17/16 10/18/16 06:59 06:59 06:59 Intake Total 960 450 Output Total 0 325 Balance 960 125 Weight 49.4 kg Exam: General appearance: no acute distress, cooperative, well-developed, well- nourished Head exam: PRESENT: atraumatic, normocephalic Eye exam: PRESENT: Conjunctiva pale, EOMI, PERRLA. ABSENT: conjunctival injection, scleral icterus Mouth exam: PRESENT: moist, neck supple, tongue midline Neck exam: PRESENT: full ROM. ABSENT: carotid bruit, JVD, lymphadenopathy, thyromegaly Respiratory exam: PRESENT: Diminished to auscultation bilaterally. ABSENT: rales, rhonchi, stridor, wheezes Cardiovascular exam: PRESENT: Irregular rate and rhythm, +S1, +S2. ABSENT: systolic murmur Pulses: PRESENT: normal radial pulses, normal dorsalis pedis pulses GI/Abdominal exam: PRESENT: normal bowel sounds, soft. ABSENT: guarding, mass, tenderness Rectal exam: deferred Extremities exam: PRESENT: full ROM. ABSENT: calf tenderness, pedal edema Musculoskeletal: PRESENT: full ROM. ABSENT: deformity Neurological exam: PRESENT: alert, Awake, Oriented to person, Oriented to place , Oriented to time, reflexes normal, CN II-XII grossly intact. ABSENT: motor sensory deficit Psychiatric exam: PRESENT: appropriate affect, normal mood. ABSENT: homicidal ideation, suicidal ideation Skin exam: PRESENT: intact, dry, warm. ABSENT: rash Results Laboratory Results: 10/17/16 04:56 10/17/16 08:28 10/16/16 10/17/16 10/17/16 21:50 04:56 04:56 WBC 27.2 H RBC 3.45 L Hgb 10.0 L Hct 30.8 L MCV 89 MCH 29.1 MCHC 32.6 RDW 19.1 H Plt Count 168 Seg Neutrophils % 87.7 H Lymphocytes % 6.5 L Monocytes % 5.6 Eosinophils % 0.0 Basophils % 0.2 Absolute Neutrophils 23.9 H Absolute Lymphocytes 1.8 Absolute Monocytes 1.5 H Absolute Eosinophils 0.0 Absolute Basophils 0.0 Sodium Cancelled Potassium Cancelled Chloride Cancelled Carbon Dioxide Cancelled Anion Gap Cancelled BUN Cancelled Creatinine Cancelled Est GFR ( Amer) Cancelled Est GFR (Non-Af Amer) Cancelled Glucose Cancelled Lactic Acid 2.0 Calcium Cancelled Magnesium Total Bilirubin Cancelled AST Cancelled ALT Cancelled Alkaline Phosphatase Cancelled Total Protein Cancelled Albumin Cancelled 10/17/16 10/17/16 08:28 17:25 WBC RBC Hgb Hct MCV MCH MCHC RDW Plt Count Seg Neutrophils % Lymphocytes % Monocytes % Eosinophils % Basophils % Absolute Neutrophils Absolute Lymphocytes Absolute Monocytes Absolute Eosinophils Absolute Basophils Sodium 136.7 L Potassium 3.5 L Chloride 105 Carbon Dioxide 18 L Anion Gap 14 BUN 20 Creatinine 3.33 H Est GFR ( Amer) 22 L Est GFR (Non-Af Amer) 19 L Glucose 240 H Lactic Acid Calcium 6.7 L* Magnesium 1.3 L 3.1 H D Total Bilirubin 1.0 AST 46 ALT 25 Alkaline Phosphatase 79 Total Protein 4.9 L Albumin 2.2 L Impressions: Chest X-Ray 10/16/16 16:54 IMPRESSION: NO ACUTE RADIOGRAPHIC FINDING IN THE CHEST. Abdomen X-Ray 10/16/16 20:18 IMPRESSION: NO RADIOGRAPHIC EVIDENCE FOR ACUTE ABDOMINAL DISEASE. Moderate amount of stool projects over the rectum. Assessment & Plan - Diagnosis (1) ESRD on hemodialysis Is this a current diagnosis for this admission?: YesPlan: We will plan for dialysis tomorrow. (2) UTI (urinary tract infection) Qualifiers: Urinary tract infection type: acute cystitis Hematuria presence: without hematuria Qualified Code(s): N30.00 - Acute cystitis without hematuria Is this a current diagnosis for this admission?: Yes (3) Protein-calorie malnutrition, moderate Is this a current diagnosis for this admission?: YesPlan: Add some nourishment with male like Nepro. (4) Anemia in chronic kidney disease (CKD) Qualifiers: Chronic kidney disease stage: on chronic dialysis Qualified Code(s) : N18.6 - End stage renal disease; D63.1 - Anemia in chronic kidney disease; Z99.2 - Dependence on renal dialysis Is this a current diagnosis for this admission?: YesPlan: We will give Procrit as needed during dialysis. (5) Chronic pain Qualifiers: Chronic pain type: chronic pain syndrome Qualified Code(s): G89.4 - Chronic pain syndrome Is this a current diagnosis for this admission?: Yes (6) Hypoalbuminemia Is this a current diagnosis for this admission?: Yes (7) Hypertension Is this a current diagnosis for this admission?: Yes (8) Physical deconditioning Is this a current diagnosis for this admission?: Yes (9) DNR (do not resuscitate) Is this a current diagnosis for this admission?: Yes - Notes Notes: Thank you very much for this consultation. I will supervise dialysis on the patient is here. - Time Time Spent: 50 to 70 Minutes
[2016-10-17] MEDS: HYDROMORPHONE HCL 2 MG TABLET PO PRN (21:04)
[2016-10-17] MEDS: MIRTAZAPINE 15 MG TABLET PO SCH (21:04)
[2016-10-18] MEDS: IPRATROPIUM/ALBUTEROL 0.5-2.5 MG/3 ML AMPUL NEB SCH ×4 (00:12→22:38)
[2016-10-18] MEDS: PIPERACILLIN SODIUM/TAZOBACTAM 2.25 GM in NORMAL SALINE 50 ML IV SCH ×3 (01:27→21:13)
[2016-10-18] MEDS ORDERED: NORMAL SALINE 1000 ML 1,000 ML IV PRN (05:00)
[2016-10-18] MEDS ORDERED: HEPARIN SOD (PORCINE) 1,000 UNIT/ML 10 ML VIAL IV PRN ×2 (05:00→10:57)
[2016-10-18] MEDS: LANSOPRAZOLE 30 MG TAB.RAP.DR PO SCH (05:26)
[2016-10-18] MEDS: HEPARIN SOD (PORCINE) 5,000 UNIT/ML 1 ML SYRINGE SUBCUT SCH ×3 (05:26→21:14)
[2016-10-18] MEDS ORDERED: CALCIUM CARBONATE 500 MG TABLET PO PRN (05:56)
--- NOTE | 2016-10-18 05:56 | EKG REPORT ---
SEVERITY:- ABNORMAL ECG - ATRIAL FLUTTER, A-RATE 259 PAIRED VENTRICULAR PREMATURE COMPLEXES LOW VOLTAGE IN FRONTAL LEADS BORDERLINE R WAVE PROGRESSION, ANTERIOR LEADS : Confirmed by: Sruthi Stovall MD 18-Oct-2016 05:56:01
[2016-10-18 07:00] LABS: HEMATOCRIT 34.3 % (37.9-51.0); HGB HCT DIFFERENCE -1.3; MEAN CORPUSCULAR VOLUME 88 fl (80-97); RED BLOOD COUNT 3.91 10^6/uL (4.35-5.55); RED CELL DISTRIBUTION WIDTH 19.8 % (11.5-14.0)
[2016-10-18 07:21] LABS: ANION GAP 14 (5-19); BLOOD UREA NITROGEN 23 mg/dL (7-20); CALCIUM 7.4 mg/dL (8.4-10.2); CARBON DIOXIDE 17 mmol/L (22-30); CHLORIDE 105 mmol/L (98-107); CREATININE RESULT 3.95 mg/dL (0.52-1.25); GLUCOSE 123 mg/dL (75-110); MAGNESIUM 2.2 mg/dL (1.6-2.3); POTASSIUM 3.8 mmol/L (3.6-5.0); SODIUM 135.9 mmol/L (137-145)
[2016-10-18] MEDS ORDERED: CLONIDINE HCL 0.2 MG TABLET PO SCH ×2 (08:00→21:00)
[2016-10-18] MEDS ORDERED: ERGOCALCIFEROL (VITAMIN D2) 50000 UNIT (1.25 MG) CAPSULE PO SCH (10:00)
[2016-10-18] MEDS ORDERED: ONDANSETRON HCL INJ/PF 4 MG/2 ML SDV IV ONE (11:00)
[2016-10-18] MEDS ORDERED: PROMETHAZINE HCL 25 MG SUPP.RECT PR ONE (13:44)
[2016-10-18] MEDS ORDERED: PROMETHAZINE HCL 25 MG SUPP.RECT PR PRN (13:44)
[2016-10-18] MEDS ORDERED: MEGESTROL ACETATE SUSP 400 MG/10 ML UDCUP PO ONE (13:45)
[2016-10-18] MEDS: ASPIRIN 81 MG TABLET, ENT COATED PO SCH (14:19)
[2016-10-18] MEDS: MEGESTROL ACETATE SUSP 400 MG/10 ML UDCUP PO SCH (14:19)
[2016-10-18] MEDS: FOLIC ACID/VITAMIN B COMP W-C CAPSULE PO SCH (14:19)
[2016-10-18] MEDS ORDERED: ASPIRIN 81 MG TABLET, ENT COATED PO ONE (14:30)
[2016-10-18] MEDS ORDERED: CLONIDINE HCL 0.2 MG TABLET PO ONE (14:30)
[2016-10-18] MEDS ORDERED: ERGOCALCIFEROL (VITAMIN D2) 50000 UNIT (1.25 MG) CAPSULE PO ONE (14:30)
[2016-10-18] MEDS: NICOTINE 21 MG/24 HR PATCH.TD24 TD SCH (14:30)
[2016-10-18] MEDS ORDERED: FOLIC ACID/VITAMIN B COMP W-C CAPSULE PO ONE (14:30)
[2016-10-18] MEDS ORDERED: PROMETHAZINE HCL 25 MG TABLET PO PRN (15:10)
[2016-10-18] MEDS: HYDROMORPHONE HCL 2 MG TABLET PO PRN ×2 (15:42→21:12)
[2016-10-18] MEDS ORDERED: PROMETHAZINE HCL 25 MG TABLET PO ONE (16:00)
--- NOTE | 2016-10-18 16:36 | PDOC PROGRESS REPORT ---
Subjective Progress Note for:: 10/18/16 Subjective:: Patient complains of nausea. He has had no further diarrhea. Patient denies chest pain, shortness of breath, abdominal pain, nausea, vomiting , constipation, headache, new onset weakness]. Physical Exam Vital Signs: Temp Pulse Resp BP Pulse Ox 97.8 F 68 20 147/61 H 100 10/18/16 14:08 10/18/16 14:08 10/18/16 14:08 10/18/16 14:08 10/18/16 14:08 Intake & Output 10/17/16 10/18/16 10/19/16 06:59 06:59 06:59 Intake Total 960 770 120 Output Total 0 650 0 Balance 960 120 120 Weight 49.4 kg 49.3 kg Exam: General: Thin, chronically ill appearing, older than stated age appearing, Awake alert and oriented x3, no acute respiratory distress HEENT: AT/NC, PERRL,EOMI, oropharynx is moist, pink, no scleral icterus, no conjunctival injection Neck: No JVD, trachea midline Chest: Clear to auscultation bilaterally, no wheezes rhonchi or rales CV: Regular rate and rhythm, normal S1 and S2, no rub, or gallop Abdomen: Soft, nontender to palpation, nondistended, active bowel sounds; no rebound, rigidity, or guarding Extremities: No cyanosis, clubbing or edema Neuro: Cranial nerves II through XII are grossly intact without focal deficits; awake alert and oriented x3 Psych: Normal mood and affect Results Laboratory Results: 10/18/16 06:35 10/18/16 06:35 10/17/16 10/18/16 10/18/16 17:25 06:35 06:35 WBC 16.0 H RBC 3.91 L Hgb 11.0 L Hct 34.3 L MCV 88 MCH 28.0 MCHC 32.0 RDW 19.8 H Plt Count 186 Sodium 135.9 L Potassium 3.8 Chloride 105 Carbon Dioxide 17 L Anion Gap 14 BUN 23 H Creatinine 3.95 H Est GFR ( Amer) 18 L Est GFR (Non-Af Amer) 15 L Glucose 123 H Calcium 7.4 L Magnesium 3.1 H D 2.2 Impressions: Chest X-Ray 10/16/16 16:54 IMPRESSION: NO ACUTE RADIOGRAPHIC FINDING IN THE CHEST. Abdomen X-Ray 10/16/16 20:18 IMPRESSION: NO RADIOGRAPHIC EVIDENCE FOR ACUTE ABDOMINAL DISEASE. Moderate amount of stool projects over the rectum. Assessment & Plan - Diagnosis (1) Sepsis Qualifiers: Sepsis type: sepsis due to unspecified organism Qualified Code(s): A41.9 - Sepsis, unspecified organism Is this a current diagnosis for this admission?: YesPlan: Patient with sepsis secondary to urinary tract infection with pseudomonas. Unable to bolus patient secondary to his end-stage renal disease. (2) UTI (urinary tract infection) Qualifiers: Urinary tract infection type: acute cystitis Hematuria presence: without hematuria Qualified Code(s): N30.00 - Acute cystitis without hematuria Is this a current diagnosis for this admission?: YesPlan: Patient is currently growing pseudomonas. On Zosyn day #2 (3) Protein-calorie malnutrition, moderate Is this a current diagnosis for this admission?: YesPlan: Consult dietary added nepro tid (4) ESRD on hemodialysis Is this a current diagnosis for this admission?: YesPlan: Appreciate nephrology imput (5) Anemia in chronic kidney disease (CKD) Qualifiers: Chronic kidney disease stage: on chronic dialysis Qualified Code(s) : N18.6 - End stage renal disease; D63.1 - Anemia in chronic kidney disease; Z99.2 - Dependence on renal dialysis Is this a current diagnosis for this admission?: YesPlan: Defer to nephrology for Epogen (6) Chronic pain Qualifiers: Chronic pain type: chronic pain syndrome Qualified Code(s): G89.4 - Chronic pain syndrome Is this a current diagnosis for this admission?: YesPlan: Continue home dilaudid (7) Hypertension Is this a current diagnosis for this admission?: YesPlan: Continue patient's home regime with hold parameters. (8) Hypoalbuminemia Is this a current diagnosis for this admission?: Yes (9) Constipation Qualifiers: Constipation type: unspecified constipation type Qualified Code(s): K59.00 - Constipation, unspecified Is this a current diagnosis for this admission?: No (10) DNR (do not resuscitate) Is this a current diagnosis for this admission?: Yes - Time Time Spent with patient: 25-34 minutes Medications reviewed and adjusted accordingly: Yes Anticipated discharge: Home Within: within 48 hours - Inpatient Certification Based on my medical assessment, after consideration of the patient's comorbidities, presenting symptoms, or acuity I expect that the services needed warrant INPATIENT care.: Yes I certify that my determination is in accordance with my understanding of Medicare's requirements for reasonable and necessary INPATIENT services [42 CFR 412.3e].: Yes Medical Necessity: Need for IV Antibiotics Post Hospital Care: D/C Insecticide Mixer Documentation
--- NOTE | 2016-10-18 16:48 | PDOC PROGRESS REPORT ---
Subjective Progress Note for:: 10/18/16 Subjective:: I saw the patient during dialysis treatment this morning at around 8:30 AM. Patient said he is feeling tired and sleepy because he did not get enough sleep last night. He did not eat much breakfast today prior to dialysis. During dialysis treatment he had some dry heaves or vomiting. Physical Exam Vital Signs: Temp Pulse Resp BP Pulse Ox 97.8 F 68 20 147/61 H 100 10/18/16 14:08 10/18/16 14:08 10/18/16 14:08 10/18/16 14:08 10/18/16 14:08 Intake & Output 10/17/16 10/18/16 10/19/16 06:59 06:59 06:59 Intake Total 960 770 120 Output Total 0 650 0 Balance 960 120 120 Weight 49.4 kg 49.3 kg Vital signs during dialysis treatment: Blood pressure is 121/68, initial heart rate of 145, flow rate of 300 mL/min, dialysate flow rate of 500 mL/min. Exam: General appearance: PRESENT: no acute distress, cooperative, emaciated, somnolent Head exam: PRESENT: atraumatic, normocephalic Eye exam: PRESENT: conjunctiva pale, PERRLA. ABSENT: scleral icterus Neck exam: ABSENT: JVD Respiratory exam: PRESENT: Diminished breath sounds. ABSENT: crackles, rales, rhonchi, unlabored, wheezes Cardiovascular exam: PRESENT: Regular rate rhythm -+S1, +S2. ABSENT: diastolic murmur, systolic murmur GI/Abdominal exam: PRESENT: normal bowel sounds, soft. ABSENT: guarding, mass, tenderness Extremities exam: ABSENT: No edema Neurological exam: PRESENT: Sleepy, oriented to person, place and time. Skin exam: PRESENT: dry, warm, Results Laboratory Results: 10/18/16 06:35 10/18/16 06:35 10/17/16 10/18/16 10/18/16 17:25 06:35 06:35 WBC 16.0 H RBC 3.91 L Hgb 11.0 L Hct 34.3 L MCV 88 MCH 28.0 MCHC 32.0 RDW 19.8 H Plt Count 186 Sodium 135.9 L Potassium 3.8 Chloride 105 Carbon Dioxide 17 L Anion Gap 14 BUN 23 H Creatinine 3.95 H Est GFR ( Amer) 18 L Est GFR (Non-Af Amer) 15 L Glucose 123 H Calcium 7.4 L Magnesium 3.1 H D 2.2 Corrected calcium of 8.8 Impressions: Chest X-Ray 10/16/16 16:54 IMPRESSION: NO ACUTE RADIOGRAPHIC FINDING IN THE CHEST. Abdomen X-Ray 10/16/16 20:18 IMPRESSION: NO RADIOGRAPHIC EVIDENCE FOR ACUTE ABDOMINAL DISEASE. Moderate amount of stool projects over the rectum. Assessment & Plan - Diagnosis (1) ESRD on hemodialysis Is this a current diagnosis for this admission?: YesPlan: We did dialysis today for 3 hours, using the patient's PermCath, with 3 potassium bath, blood flow rate of 300 mL per minute, dialysate flow rate of 600 mL per minute, ultrafiltration none, no heparin and no Procrit during dialysis. Patient was able to complete the whole 3 hours of treatment today. We will continue to supervise hemodialysis while here in the hospital. (2) UTI (urinary tract infection) Qualifiers: Urinary tract infection type: acute cystitis Hematuria presence: without hematuria Qualified Code(s): N30.00 - Acute cystitis without hematuria Is this a current diagnosis for this admission?: YesPlan: Due to pseudomonas aeruginosa. Management per primary service. (3) Protein-calorie malnutrition, moderate Is this a current diagnosis for this admission?: YesPlan: Add some nourishment with male like Nepro. (4) Anemia in chronic kidney disease (CKD) Qualifiers: Chronic kidney disease stage: on chronic dialysis Qualified Code(s) : N18.6 - End stage renal disease; D63.1 - Anemia in chronic kidney disease; Z99.2 - Dependence on renal dialysis Is this a current diagnosis for this admission?: YesPlan: We will give Procrit as needed during dialysis. (5) Chronic pain Qualifiers: Chronic pain type: chronic pain syndrome Qualified Code(s): G89.4 - Chronic pain syndrome Is this a current diagnosis for this admission?: Yes (6) Hypoalbuminemia Is this a current diagnosis for this admission?: Yes (7) Hypertension Is this a current diagnosis for this admission?: Yes (8) Physical deconditioning Is this a current diagnosis for this admission?: Yes (9) DNR (do not resuscitate) Is this a current diagnosis for this admission?: Yes - Time Time with patient: 15-25 minutes
[2016-10-18] MEDS: MIRTAZAPINE 15 MG TABLET PO SCH (21:11)
[2016-10-19] MEDS: LANSOPRAZOLE 30 MG TAB.RAP.DR PO SCH (05:18)
[2016-10-19] MEDS: HEPARIN SOD (PORCINE) 5,000 UNIT/ML 1 ML SYRINGE SUBCUT SCH ×3 (05:19→21:19)
[2016-10-19] MEDS: PIPERACILLIN SODIUM/TAZOBACTAM 2.25 GM in NORMAL SALINE 50 ML IV SCH ×3 (05:20→21:19)
[2016-10-19] MEDS: CLONIDINE HCL 0.2 MG TABLET PO SCH ×2 (07:59→14:04)
[2016-10-19 08:25] LABS: ABSOLUTE BASOPHILS # (AUTO) 0.1 10^3/uL (0.0-0.2); ABSOLUTE LYMPHOCYTES (AUTO) 1.3 10^3/uL (0.5-4.7); ABSOLUTE MONOCYTES (AUTO) 0.6 10^3/uL (0.1-1.4); ABSOLUTE NEUT (AUTO) 6.6 10^3/uL (1.7-8.2); BASOPHILS % (AUTO) 0.9 % (0-2); EOSINOPHILS % (AUTO) 0.1 % (0-6); HEMATOCRIT 27.7 % (37.9-51.0); HEMOGLOBIN 9.2 g/dL (13.5-17.0); HGB HCT DIFFERENCE -0.1; LYMPHOCYTES % (AUTO) 15.7 % (13-45); MEAN CORPUSCULAR HEMOGLOBIN 29.7 pg (27.0-33.4); MEAN CORPUSCULAR HGB CONC 33.2 g/dL (32.0-36.0); MEAN CORPUSCULAR VOLUME 89 fl (80-97); MONOCYTES % (AUTO) 6.5 % (3-13); SEGMENTED NEUTROPHILS % (AUTO) 76.8 % (42-78); WHITE BLOOD COUNT 8.6 10^3/uL (4.0-10.5)
[2016-10-19 08:37] LABS: ANION GAP 12 (5-19); BLOOD UREA NITROGEN 11 mg/dL (7-20); CALCIUM 7.1 mg/dL (8.4-10.2); CARBON DIOXIDE 26 mmol/L (22-30); CHLORIDE 101 mmol/L (98-107); GLUCOSE 177 mg/dL (75-110); POTASSIUM 3.3 mmol/L (3.6-5.0); SODIUM 138.7 mmol/L (137-145)
[2016-10-19] MEDS ORDERED: IPRATROPIUM/ALBUTEROL 0.5-2.5 MG/3 ML AMPUL NEB PRN (09:06)
[2016-10-19] MEDS: NICOTINE 21 MG/24 HR PATCH.TD24 TD SCH (10:18)
[2016-10-19] MEDS: ISOSORBIDE MONONITRATE 30 MG TAB.ER.24H PO SCH (10:18)
[2016-10-19] MEDS: ASPIRIN 81 MG TABLET, ENT COATED PO SCH (10:18)
[2016-10-19] MEDS: FOLIC ACID/VITAMIN B COMP W-C CAPSULE PO SCH (10:18)
[2016-10-19] MEDS: AMLODIPINE BESYLATE 10 MG TABLET PO SCH (10:18)
[2016-10-19] MEDS: MEGESTROL ACETATE SUSP 400 MG/10 ML UDCUP PO SCH (10:18)
--- NOTE | 2016-10-19 12:33 | PDOC PROGRESS REPORT ---
Subjective Progress Note for:: 10/19/16 Subjective:: Patient repotrs nausea improved. He has had no further diarrhea. Patient denies chest pain, shortness of breath, abdominal pain, nausea, vomiting , constipation, headache, new onset weakness. Nursing reports patient had some confusion overnight thinking he was at home. Patient is easily reoriented as he is oriented x3 for me on exam. Physical Exam Vital Signs: Temp Pulse Resp BP Pulse Ox 97.9 F 97 16 136/74 H 100 10/19/16 07:15 10/19/16 07:15 10/19/16 07:15 10/19/16 07:15 10/19/16 07:15 Intake & Output 10/18/16 10/19/16 10/20/16 06:59 06:59 06:59 Intake Total 770 1666 Output Total 650 0 Balance 120 1666 Weight 49.3 kg 56.5 kg Exam: General: Thin, chronically ill appearing, older than stated age appearing, Awake alert and oriented x3, no acute respiratory distress HEENT: AT/NC, PERRL,EOMI, oropharynx is moist, pink, no scleral icterus, no conjunctival injection Neck: No JVD, trachea midline Chest: Trialysis catheter right upper chest, Clear to auscultation bilaterally, no wheezes rhonchi or rales CV: Regular rate and rhythm, normal S1 and S2, no rub, or gallop Abdomen: Soft, nontender to palpation, nondistended, active bowel sounds; no rebound, rigidity, or guarding Extremities: No cyanosis, clubbing; 1+ pitting edema Neuro: Cranial nerves II through XII are grossly intact without focal deficits; awake alert and oriented x3 Psych: Normal mood and affect Results Laboratory Results: 10/19/16 07:54 10/19/16 07:54 10/19/16 10/19/16 10/19/16 04:55 07:54 07:54 WBC 8.6 RBC 3.10 L Hgb 9.2 L Hct 27.7 L MCV 89 MCH 29.7 MCHC 33.2 RDW 19.0 H Plt Count 170 Seg Neutrophils % 76.8 Lymphocytes % 15.7 Monocytes % 6.5 Eosinophils % 0.1 Basophils % 0.9 Absolute Neutrophils 6.6 Absolute Lymphocytes 1.3 Absolute Monocytes 0.6 Absolute Eosinophils 0.0 Absolute Basophils 0.1 Sodium 138.7 Potassium 3.3 L Chloride 101 Carbon Dioxide 26 Anion Gap 12 BUN 11 Creatinine 2.50 H Est GFR ( Amer) 31 L Est GFR (Non-Af Amer) 26 L Glucose 177 H Calcium 7.1 L Ammonia < 8.7 L Impressions: Chest X-Ray 10/16/16 16:54 IMPRESSION: NO ACUTE RADIOGRAPHIC FINDING IN THE CHEST. Abdomen X-Ray 10/16/16 20:18 IMPRESSION: NO RADIOGRAPHIC EVIDENCE FOR ACUTE ABDOMINAL DISEASE. Moderate amount of stool projects over the rectum. Assessment & Plan - Diagnosis (1) Sepsis Qualifiers: Sepsis type: Pseudomonas Qualified Code(s): A41.52 - Sepsis due to Pseudomonas Is this a current diagnosis for this admission?: YesPlan: Patient with sepsis secondary to urinary tract infection with pseudomonas. Unable to bolus patient secondary to his end-stage renal disease. (2) UTI (urinary tract infection) Qualifiers: Urinary tract infection type: acute cystitis Hematuria presence: without hematuria Qualified Code(s): N30.00 - Acute cystitis without hematuria Is this a current diagnosis for this admission?: YesPlan: Patient is currently growing pseudomonas. On Zosyn day #3. Plan to transition to Levaquin tomorrow. (3) Protein-calorie malnutrition, moderate Is this a current diagnosis for this admission?: YesPlan: Consult dietary added nepro tid (4) ESRD on hemodialysis Is this a current diagnosis for this admission?: YesPlan: Appreciate nephrology imput (5) Anemia in chronic kidney disease (CKD) Qualifiers: Chronic kidney disease stage: on chronic dialysis Qualified Code(s) : N18.6 - End stage renal disease; D63.1 - Anemia in chronic kidney disease; Z99.2 - Dependence on renal dialysis Is this a current diagnosis for this admission?: YesPlan: Defer to nephrology for Epogen (6) Chronic pain Qualifiers: Chronic pain type: chronic pain syndrome Qualified Code(s): G89.4 - Chronic pain syndrome Is this a current diagnosis for this admission?: YesPlan: Continue home dilaudid (7) Hypertension Is this a current diagnosis for this admission?: YesPlan: Continue patient's home regime with hold parameters. (8) Hypoalbuminemia Is this a current diagnosis for this admission?: YesPlan: Protein supplementation (9) Constipation Qualifiers: Constipation type: unspecified constipation type Qualified Code(s): K59.00 - Constipation, unspecified Is this a current diagnosis for this admission?: No (10) Sepsis with metabolic encephalopathy Is this a current diagnosis for this admission?: YesPlan: Patient with metabolic encephalopathy s/s sepsis Patient easily reoriented continue supportive care exercise caution with narcotics (11) DNR (do not resuscitate) Is this a current diagnosis for this admission?: YesPlan: Michelle Franz, daughter - Time Time Spent with patient: 25-34 minutes Medications reviewed and adjusted accordingly: Yes Anticipated discharge: Home with Homehealth Within: within 48 hours - Inpatient Certification Based on my medical assessment, after consideration of the patient's comorbidities, presenting symptoms, or acuity I expect that the services needed warrant INPATIENT care.: Yes I certify that my determination is in accordance with my understanding of Medicare's requirements for reasonable and necessary INPATIENT services [42 CFR 412.3e].: Yes Medical Necessity: Need for IV Antibiotics 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
[2016-10-19] MEDS: INSULIN LISPRO 100 UNIT/ML 3 ML VIAL SUBCUT PRN (16:59)
[2016-10-19] MEDS: MIRTAZAPINE 15 MG TABLET PO SCH (21:19)
[2016-10-20] MEDS: LANSOPRAZOLE 30 MG TAB.RAP.DR PO SCH (05:10)
[2016-10-20] MEDS: HEPARIN SOD (PORCINE) 5,000 UNIT/ML 1 ML SYRINGE SUBCUT SCH ×3 (05:10→21:30)
[2016-10-20] MEDS: PIPERACILLIN SODIUM/TAZOBACTAM 2.25 GM in NORMAL SALINE 50 ML IV SCH (05:10)
[2016-10-20] MEDS: HYDROMORPHONE HCL 2 MG TABLET PO PRN ×2 (06:10→20:34)
[2016-10-20] MEDS: CLONIDINE HCL 0.2 MG TABLET PO SCH ×2 (08:20→13:54)
[2016-10-20 08:29] LABS: ANION GAP 9 (5-19); BLOOD UREA NITROGEN 16 mg/dL (7-20); CALCIUM 7.3 mg/dL (8.4-10.2); CARBON DIOXIDE 26 mmol/L (22-30); CHLORIDE 105 mmol/L (98-107); CREATININE RESULT 3.17 mg/dL (0.52-1.25); GLUCOSE 96 mg/dL (75-110); SODIUM 139.6 mmol/L (137-145)
[2016-10-20 08:33] LABS: POTASSIUM 2.8 mmol/L (3.6-5.0)
[2016-10-20] MEDS ORDERED: POTASSIUM CHLORIDE 10 MEQ TABLET.SA PO ONE (09:30)
[2016-10-20] MEDS: LEVOFLOXACIN 750 MG TABLET PO SCH (10:09)
[2016-10-20] MEDS: FOLIC ACID/VITAMIN B COMP W-C CAPSULE PO SCH (10:09)
[2016-10-20] MEDS: NICOTINE 21 MG/24 HR PATCH.TD24 TD SCH (10:09)
[2016-10-20] MEDS: MEGESTROL ACETATE SUSP 400 MG/10 ML UDCUP PO SCH (10:09)
[2016-10-20] MEDS: AMLODIPINE BESYLATE 10 MG TABLET PO SCH (10:09)
[2016-10-20] MEDS: ASPIRIN 81 MG TABLET, ENT COATED PO SCH (10:09)
[2016-10-20] MEDS: ISOSORBIDE MONONITRATE 30 MG TAB.ER.24H PO SCH (10:09)
[2016-10-20] MEDS: POTASSI CL 20 MEQ/50 ML RIDER 50 ML IV SCH ×2 (10:10→12:24)
--- NOTE | 2016-10-20 13:03 | PDOC PROGRESS REPORT ---
Subjective Progress Note for:: 10/20/16 Subjective:: Patient reports that he is feeling improved, but tired. Patient denies chest pain, shortness of breath, abdominal pain, nausea, vomiting , constipation, headache, new onset weakness. He has no new complaints. Physical Exam Vital Signs: Temp Pulse Resp BP Pulse Ox 98.2 F 90 20 133/73 H 99 10/20/16 03:20 10/20/16 03:20 10/20/16 03:20 10/20/16 03:20 10/20/16 03:20 Intake & Output 10/19/16 10/20/16 10/21/16 06:59 06:59 06:59 Intake Total 1666 883 Output Total 0 0 Balance 1666 883 Weight 56.5 kg 57.8 kg Exam: General: Thin, chronically ill appearing, older than stated age appearing, resting comfortably, but arouses easily and oriented x3, no acute respiratory distress HEENT: AT/NC, PERRL,EOMI, oropharynx is moist, pink, no scleral icterus, no conjunctival injection Neck: No JVD, trachea midline Chest: Trialysis catheter right upper chest, Clear to auscultation bilaterally, no wheezes rhonchi or rales CV: Regular rate and rhythm, normal S1 and S2, no rub, or gallop Abdomen: Soft, nontender to palpation, nondistended, active bowel sounds; no rebound, rigidity, or guarding Extremities: No cyanosis, clubbing; 1+ pitting edema Neuro: Cranial nerves II through XII are grossly intact without focal deficits; awake alert and oriented x3 Psych: Normal mood and affect Results Laboratory Results: 10/19/16 07:54 10/19/16 07:54 10/19/16 10/19/16 07:54 07:54 WBC 8.6 RBC 3.10 L Hgb 9.2 L Hct 27.7 L MCV 89 MCH 29.7 MCHC 33.2 RDW 19.0 H Plt Count 170 Seg Neutrophils % 76.8 Lymphocytes % 15.7 Monocytes % 6.5 Eosinophils % 0.1 Basophils % 0.9 Absolute Neutrophils 6.6 Absolute Lymphocytes 1.3 Absolute Monocytes 0.6 Absolute Eosinophils 0.0 Absolute Basophils 0.1 Sodium 138.7 Potassium 3.3 L Chloride 101 Carbon Dioxide 26 Anion Gap 12 BUN 11 Creatinine 2.50 H Est GFR ( Amer) 31 L Est GFR (Non-Af Amer) 26 L Glucose 177 H Calcium 7.1 L 10/17/16 08:00 Throat Throat Culture - Final REDUCED NORMAL NILA Impressions: Chest X-Ray 10/16/16 16:54 IMPRESSION: NO ACUTE RADIOGRAPHIC FINDING IN THE CHEST. Abdomen X-Ray 10/16/16 20:18 IMPRESSION: NO RADIOGRAPHIC EVIDENCE FOR ACUTE ABDOMINAL DISEASE. Moderate amount of stool projects over the rectum. Assessment & Plan - Diagnosis (1) Hypokalemia Is this a current diagnosis for this admission?: YesPlan: Patient with hypokalemia of 2.8. At this time continue telemetry monitoring while repleting this with concern for arrhythmia. Check a magnesium. BMP at 1600 and recheck in a.m. (2) Sepsis Qualifiers: Sepsis type: Pseudomonas Qualified Code(s): A41.52 - Sepsis due to Pseudomonas Is this a current diagnosis for this admission?: YesPlan: Patient with sepsis secondary to urinary tract infection with pseudomonas. Unable to bolus patient secondary to his end-stage renal disease. (3) UTI (urinary tract infection) Qualifiers: Urinary tract infection type: acute cystitis Hematuria presence: without hematuria Qualified Code(s): N30.00 - Acute cystitis without hematuria Is this a current diagnosis for this admission?: YesPlan: Patient is currently growing pseudomonas. Stop Zosyn today and transition patient to Levaquin now that his mentation has improved. (4) Protein-calorie malnutrition, moderate Is this a current diagnosis for this admission?: YesPlan: Consult dietary added nepro tid (5) ESRD on hemodialysis Is this a current diagnosis for this admission?: YesPlan: Appreciate nephrology imput plan for hemodialysis tomorrow and discharge after that. (6) Anemia in chronic kidney disease (CKD) Qualifiers: Chronic kidney disease stage: on chronic dialysis Qualified Code(s) : N18.6 - End stage renal disease; D63.1 - Anemia in chronic kidney disease; Z99.2 - Dependence on renal dialysis Is this a current diagnosis for this admission?: YesPlan: Defer to nephrology for Epogen (7) Chronic pain Qualifiers: Chronic pain type: chronic pain syndrome Qualified Code(s): G89.4 - Chronic pain syndrome Is this a current diagnosis for this admission?: Yes (8) Hypertension Is this a current diagnosis for this admission?: Yes (9) Hypoalbuminemia Is this a current diagnosis for this admission?: Yes (10) Constipation Qualifiers: Constipation type: unspecified constipation type Qualified Code(s): K59.00 - Constipation, unspecified Is this a current diagnosis for this admission?: No (11) Sepsis with metabolic encephalopathy Is this a current diagnosis for this admission?: YesPlan: Appears to be at baseline Patient with metabolic encephalopathy 2/2 sepsis continue supportive care exercise caution with narcotics (12) DNR (do not resuscitate) Is this a current diagnosis for this admission?: Yes - Time Time Spent with patient: 25-34 minutes Medications reviewed and adjusted accordingly: Yes Anticipated discharge: Home Within: within 24 hours
[2016-10-20] MEDS ORDERED: MAGNESIUM OXIDE 400 MG TABLET PO ONE (13:45)
[2016-10-20] MEDS: INSULIN LISPRO 100 UNIT/ML 3 ML VIAL SUBCUT PRN ×2 (16:13→22:42)
[2016-10-20 16:54] LABS: ANION GAP 9 (5-19); BLOOD UREA NITROGEN 17 mg/dL (7-20); CARBON DIOXIDE 23 mmol/L (22-30); CHLORIDE 107 mmol/L (98-107); CREATININE RESULT 3.22 mg/dL (0.52-1.25); GLUCOSE 154 mg/dL (75-110); SODIUM 139.2 mmol/L (137-145)
[2016-10-20 17:11] LABS: CALCIUM 6.9 mg/dL (8.4-10.2); POTASSIUM 3.9 mmol/L (3.6-5.0)
[2016-10-20] MEDS ORDERED: CALCIUM GLUCONATE 1000 MG/10 ML INJ IV ONE (18:26)
[2016-10-20] MEDS: MIRTAZAPINE 15 MG TABLET PO SCH (21:30)
[2016-10-21 04:57] LABS: ABSOLUTE BASOPHILS # (AUTO) 0.1 10^3/uL (0.0-0.2); ABSOLUTE EOSINOPHILS # (AUTO) 0.1 10^3/uL (0.0-0.6); ABSOLUTE LYMPHOCYTES (AUTO) 2.2 10^3/uL (0.5-4.7); ABSOLUTE MONOCYTES (AUTO) 0.7 10^3/uL (0.1-1.4); ABSOLUTE NEUT (AUTO) 5.3 10^3/uL (1.7-8.2); EOSINOPHILS % (AUTO) 1.6 % (0-6); HEMATOCRIT 29.7 % (37.9-51.0); HEMOGLOBIN 9.7 g/dL (13.5-17.0); HGB HCT DIFFERENCE -0.6; LYMPHOCYTES % (AUTO) 26.1 % (13-45); MEAN CORPUSCULAR HEMOGLOBIN 29.1 pg (27.0-33.4); MEAN CORPUSCULAR HGB CONC 32.6 g/dL (32.0-36.0); MEAN CORPUSCULAR VOLUME 89 fl (80-97); MONOCYTES % (AUTO) 8.2 % (3-13); RED BLOOD COUNT 3.34 10^6/uL (4.35-5.55); RED CELL DISTRIBUTION WIDTH 18.8 % (11.5-14.0); SEGMENTED NEUTROPHILS % (AUTO) 63.1 % (42-78); WHITE BLOOD COUNT 8.4 10^3/uL (4.0-10.5)
[2016-10-21] MEDS ORDERED: HEPARIN SOD (PORCINE) 1,000 UNIT/ML 10 ML VIAL IV PRN ×2 (05:00→10:24)
[2016-10-21] MEDS ORDERED: EPOETIN ALFA INJ 20000 UNIT/1 ML VIAL (RENAL) IV PRN (05:00)
[2016-10-21] MEDS ORDERED: NORMAL SALINE 1000 ML 1,000 ML IV PRN (05:00)
[2016-10-21] MEDS: HEPARIN SOD (PORCINE) 5,000 UNIT/ML 1 ML SYRINGE SUBCUT SCH ×3 (05:22→21:37)
[2016-10-21] MEDS: LANSOPRAZOLE 30 MG TAB.RAP.DR PO SCH (05:22)
[2016-10-21 05:29] LABS: ANION GAP 10 (5-19); BLOOD UREA NITROGEN 19 mg/dL (7-20); CALCIUM 7.5 mg/dL (8.4-10.2); CARBON DIOXIDE 23 mmol/L (22-30); CHLORIDE 107 mmol/L (98-107); CREATININE RESULT 3.52 mg/dL (0.52-1.25); GLUCOSE 88 mg/dL (75-110); MAGNESIUM 1.9 mg/dL (1.6-2.3); POTASSIUM 3.6 mmol/L (3.6-5.0); SODIUM 140.2 mmol/L (137-145)
[2016-10-21] MEDS: FOLIC ACID/VITAMIN B COMP W-C CAPSULE PO SCH (12:32)
[2016-10-21] MEDS: ASPIRIN 81 MG TABLET, ENT COATED PO SCH (12:32)
[2016-10-21] MEDS: NICOTINE 21 MG/24 HR PATCH.TD24 TD SCH (12:33)
[2016-10-21] MEDS: MEGESTROL ACETATE SUSP 400 MG/10 ML UDCUP PO SCH (12:33)
[2016-10-21] MEDS ORDERED: LOPERAMIDE HCL 2 MG CAPSULE PO ONE (13:10)
--- NOTE | 2016-10-21 13:24 | PDOC PROGRESS REPORT ---
Subjective Progress Note for:: 10/21/16 Subjective:: Patient reports he had an incontinent bowel movement. Patient denies chest pain, shortness of breath, abdominal pain, nausea, vomiting , constipation, headache, new onset weakness. Daughter is present at bedside and reports father will now agree to rehab placement Physical Exam Vital Signs: Temp Pulse Resp BP Pulse Ox 98.0 F 141 H 16 142/62 H 94 10/21/16 12:18 10/21/16 12:18 10/21/16 12:18 10/21/16 12:18 10/21/16 12:18 Intake & Output 10/20/16 10/21/16 10/22/16 06:59 06:59 06:59 Intake Total 883 974 Output Total 0 Balance 883 974 Weight 57.8 kg 58.1 kg Exam: General: Thin, chronically ill appearing, older than stated age appearing, awake , alert, and oriented x3, no acute respiratory distress HEENT: AT/NC, PERRL,EOMI, oropharynx is moist, pink, no scleral icterus, no conjunctival injection Neck: No JVD, trachea midline Chest: Trialysis catheter right upper chest, Clear to auscultation bilaterally, no wheezes rhonchi or rales CV: Regular rate and rhythm, normal S1 and S2, no rub, or gallop Abdomen: Soft, nontender to palpation, nondistended, active bowel sounds; no rebound, rigidity, or guarding Extremities: No cyanosis, clubbing; 1+ pitting edema Neuro: Cranial nerves II through XII are grossly intact without focal deficits; awake alert and oriented x3 Psych: Normal mood and affect Results Laboratory Results: 10/21/16 04:04 10/21/16 04:04 10/20/16 10/21/16 10/21/16 16:30 04:04 04:04 WBC 8.4 RBC 3.34 L Hgb 9.7 L Hct 29.7 L MCV 89 MCH 29.1 MCHC 32.6 RDW 18.8 H Plt Count 123 L Seg Neutrophils % 63.1 Lymphocytes % 26.1 Monocytes % 8.2 Eosinophils % 1.6 Basophils % 1.0 Absolute Neutrophils 5.3 Absolute Lymphocytes 2.2 Absolute Monocytes 0.7 Absolute Eosinophils 0.1 Absolute Basophils 0.1 Sodium 139.2 140.2 Potassium 3.9 D 3.6 Chloride 107 107 Carbon Dioxide 23 23 Anion Gap 9 10 BUN 17 19 Creatinine 3.22 H 3.52 H Est GFR ( Amer) 23 L 21 L Est GFR (Non-Af Amer) 19 L 17 L Glucose 154 H 88 Calcium 6.9 L* 7.5 L Magnesium 1.9 Impressions: Chest X-Ray 10/16/16 16:54 IMPRESSION: NO ACUTE RADIOGRAPHIC FINDING IN THE CHEST. Abdomen X-Ray 10/16/16 20:18 IMPRESSION: NO RADIOGRAPHIC EVIDENCE FOR ACUTE ABDOMINAL DISEASE. Moderate amount of stool projects over the rectum. Assessment & Plan - Diagnosis (1) Hypokalemia Is this a current diagnosis for this admission?: YesPlan: Improved (2) Sepsis Qualifiers: Sepsis type: Pseudomonas Qualified Code(s): A41.52 - Sepsis due to Pseudomonas Is this a current diagnosis for this admission?: YesPlan: Patient with sepsis secondary to urinary tract infection with pseudomonas. Unable to bolus patient secondary to his end-stage renal disease. Transitioned to levaquin (3) UTI (urinary tract infection) Qualifiers: Urinary tract infection type: acute cystitis Hematuria presence: without hematuria Qualified Code(s): N30.00 - Acute cystitis without hematuria Is this a current diagnosis for this admission?: YesPlan: Patient is currently growing pseudomonas. Patient on Levaquin now that his mentation has improved. (4) Protein-calorie malnutrition, moderate Is this a current diagnosis for this admission?: YesPlan: Consult dietary added nepro tid (5) ESRD on hemodialysis Is this a current diagnosis for this admission?: YesPlan: Appreciate nephrology imput plan for hemodialysis [facility] (6) Anemia in chronic kidney disease (CKD) Qualifiers: Chronic kidney disease stage: on chronic dialysis Qualified Code(s) : N18.6 - End stage renal disease; D63.1 - Anemia in chronic kidney disease; Z99.2 - Dependence on renal dialysis Is this a current diagnosis for this admission?: YesPlan: Defer to nephrology for Epogen (7) Chronic pain Qualifiers: Chronic pain type: chronic pain syndrome Qualified Code(s): G89.4 - Chronic pain syndrome Is this a current diagnosis for this admission?: YesPlan: Continue home dilaudid (8) Hypertension Is this a current diagnosis for this admission?: YesPlan: Continue patient's home regime with hold parameters. (9) Hypoalbuminemia Is this a current diagnosis for this admission?: YesPlan: Protein supplementation (10) Constipation Qualifiers: Constipation type: unspecified constipation type Qualified Code(s): K59.00 - Constipation, unspecified Is this a current diagnosis for this admission?: No (11) Sepsis with metabolic encephalopathy Is this a current diagnosis for this admission?: YesPlan: Improved. Appears to be at baseline Patient with metabolic encephalopathy 2/2 sepsis continue supportive care exercise caution with narcotics (12) DNR (do not resuscitate) Is this a current diagnosis for this admission?: Yes (13) Diarrhea Qualifiers: Diarrhea type: unspecified type Qualified Code(s): R19.7 - Diarrhea , unspecified Is this a current diagnosis for this admission?: YesPlan: Start bacid Give one dose of immodium C.Diff negative (14) Physical deconditioning Is this a current diagnosis for this admission?: YesPlan: Consult PT and discharge planning for rehab. Patient stable for DC to rehab when bed available. - Time Time Spent with patient: 35 or more minutes Anticipated discharge: Acute Rehab Within: when bed available
[2016-10-21] MEDS: LACTOBACILLUS ACIDOPHILUS 250 MG TAB PO SCH (17:54)
[2016-10-21] MEDS ORDERED: EPOETIN ALFA 10,000 UNIT in SYRINGE, DISPOSABLE, 1 EACH SUBCUT PRN (18:34)
--- NOTE | 2016-10-21 21:08 | PDOC PROGRESS REPORT ---
Subjective Progress Note for:: 10/21/16 Subjective:: I saw the patient during dialysis treatment this morning at around 8:30 AM. Patient said he wanted to go home. He said he is feeling fine and eating a little bit. Tells me he is drinking his Nepro once a day. He said that he does not really have any complaints. Physical Exam Vital Signs: Temp Pulse Resp BP Pulse Ox 99.1 F 103 H 16 151/95 H 95 10/21/16 19:36 10/21/16 19:36 10/21/16 19:36 10/21/16 19:36 10/21/16 19:36 Intake & Output 10/20/16 10/21/16 10/22/16 06:59 06:59 06:59 Intake Total 883 974 505 Output Total 0 0 Balance 883 974 505 Weight 57.8 kg 58.1 kg Vital signs during dialysis this morning: Blood pressure of 189/71, respiratory rate of 14, heart rate of 95, oxygen saturation of 100% temperature of 97.9 Exam: General appearance: PRESENT: no acute distress, cooperative, fragile looking Head exam: PRESENT: atraumatic, normocephalic Eye exam: PRESENT: conjunctiva pale, PERRLA. ABSENT: scleral icterus Neck exam: ABSENT: JVD Respiratory exam: PRESENT: Diminished breath sounds. ABSENT: crackles, rales, rhonchi, unlabored, wheezes Cardiovascular exam: PRESENT: Regular rate rhythm -+S1, +S2. ABSENT: diastolic murmur, systolic murmur GI/Abdominal exam: PRESENT: normal bowel sounds, soft. ABSENT: guarding, mass, tenderness Extremities exam: ABSENT: No edema Neurological exam: PRESENT: alert, awake, oriented to person, place and time. Skin exam: PRESENT: dry, warm, Results Laboratory Results: 10/21/16 04:04 10/21/16 04:04 10/21/16 10/21/16 04:04 04:04 WBC 8.4 RBC 3.34 L Hgb 9.7 L Hct 29.7 L MCV 89 MCH 29.1 MCHC 32.6 RDW 18.8 H Plt Count 123 L Seg Neutrophils % 63.1 Lymphocytes % 26.1 Monocytes % 8.2 Eosinophils % 1.6 Basophils % 1.0 Absolute Neutrophils 5.3 Absolute Lymphocytes 2.2 Absolute Monocytes 0.7 Absolute Eosinophils 0.1 Absolute Basophils 0.1 Sodium 140.2 Potassium 3.6 Chloride 107 Carbon Dioxide 23 Anion Gap 10 BUN 19 Creatinine 3.52 H Est GFR ( Amer) 21 L Est GFR (Non-Af Amer) 17 L Glucose 88 Calcium 7.5 L Magnesium 1.9 Impressions: Chest X-Ray 10/16/16 16:54 IMPRESSION: NO ACUTE RADIOGRAPHIC FINDING IN THE CHEST. Abdomen X-Ray 10/16/16 20:18 IMPRESSION: NO RADIOGRAPHIC EVIDENCE FOR ACUTE ABDOMINAL DISEASE. Moderate amount of stool projects over the rectum. Assessment & Plan - Diagnosis (1) ESRD on hemodialysis Is this a current diagnosis for this admission?: YesPlan: We did dialysis today for 2.5 hours, using the patient's PermCath, with 4 potassium bath for 1 and half hours followed by 3 potassium bath, blood flow rate of 300 mL per minute, dialysate flow rate of 600 mL per minute, ultrafiltration none or up to 500 mL if tolerated, no heparin and Procrit 10, 000 units intravenously during dialysis. Patient was able to complete the whole 2.5 hours of treatment today. We will continue to supervise hemodialysis while here in the hospital. (2) UTI (urinary tract infection) Qualifiers: Urinary tract infection type: acute cystitis Hematuria presence: without hematuria Qualified Code(s): N30.00 - Acute cystitis without hematuria Is this a current diagnosis for this admission?: YesPlan: Due to pseudomonas aeruginosa. Management per primary service. (3) Protein-calorie malnutrition, moderate Is this a current diagnosis for this admission?: YesPlan: Add some nourishment with male like Nepro. (4) Anemia in chronic kidney disease (CKD) Qualifiers: Chronic kidney disease stage: on chronic dialysis Qualified Code(s) : N18.6 - End stage renal disease; D63.1 - Anemia in chronic kidney disease; Z99.2 - Dependence on renal dialysis Is this a current diagnosis for this admission?: YesPlan: We will give Procrit as needed during dialysis. (5) Chronic pain Qualifiers: Chronic pain type: chronic pain syndrome Qualified Code(s): G89.4 - Chronic pain syndrome Is this a current diagnosis for this admission?: Yes (6) Hypoalbuminemia Is this a current diagnosis for this admission?: Yes (7) Hypertension Is this a current diagnosis for this admission?: Yes (8) Physical deconditioning Is this a current diagnosis for this admission?: Yes (9) DNR (do not resuscitate) Is this a current diagnosis for this admission?: Yes - Time Time with patient: 15-25 minutes
[2016-10-21] MEDS: MIRTAZAPINE 15 MG TABLET PO SCH (21:37)
[2016-10-21] MEDS: INSULIN LISPRO 100 UNIT/ML 3 ML VIAL SUBCUT PRN (22:38)
[2016-10-21] MEDS: HYDROMORPHONE HCL 2 MG TABLET PO PRN (23:17)
[2016-10-22] MEDS: HYDROMORPHONE HCL 2 MG TABLET PO PRN ×3 (03:18→20:35)
[2016-10-22] MEDS: HEPARIN SOD (PORCINE) 5,000 UNIT/ML 1 ML SYRINGE SUBCUT SCH (05:23)
[2016-10-22] MEDS: LANSOPRAZOLE 30 MG TAB.RAP.DR PO SCH (05:25)
[2016-10-22 08:44] LABS: HEMATOCRIT 32.5 % (37.9-51.0); HEMOGLOBIN 10.7 g/dL (13.5-17.0); HGB HCT DIFFERENCE -0.4; MEAN CORPUSCULAR HEMOGLOBIN 29.1 pg (27.0-33.4); MEAN CORPUSCULAR HGB CONC 32.8 g/dL (32.0-36.0); MEAN CORPUSCULAR VOLUME 89 fl (80-97); RED BLOOD COUNT 3.67 10^6/uL (4.35-5.55); RED CELL DISTRIBUTION WIDTH 19.2 % (11.5-14.0); WHITE BLOOD COUNT 8.2 10^3/uL (4.0-10.5)
[2016-10-22] MEDS: FOLIC ACID/VITAMIN B COMP W-C CAPSULE PO SCH (08:57)
[2016-10-22] MEDS: ASPIRIN 81 MG TABLET, ENT COATED PO SCH (08:57)
[2016-10-22] MEDS: LEVOFLOXACIN 750 MG TABLET PO SCH (08:58)
[2016-10-22] MEDS: ISOSORBIDE MONONITRATE 30 MG TAB.ER.24H PO SCH (08:59)
[2016-10-22] MEDS: CLONIDINE HCL 0.2 MG TABLET PO SCH ×2 (08:59→14:56)
[2016-10-22] MEDS: AMLODIPINE BESYLATE 10 MG TABLET PO SCH (08:59)
[2016-10-22] MEDS: LACTOBACILLUS ACIDOPHILUS 250 MG TAB PO SCH ×2 (08:59→17:29)
[2016-10-22] MEDS: NICOTINE 21 MG/24 HR PATCH.TD24 TD SCH (09:00)
[2016-10-22] MEDS: MEGESTROL ACETATE SUSP 400 MG/10 ML UDCUP PO SCH (09:00)
[2016-10-22 09:01] LABS: ANION GAP 8 (5-19); BLOOD UREA NITROGEN 11 mg/dL (7-20); CALCIUM 7.5 mg/dL (8.4-10.2); CARBON DIOXIDE 26 mmol/L (22-30); CHLORIDE 103 mmol/L (98-107); CREATININE RESULT 2.51 mg/dL (0.52-1.25); GLUCOSE 119 mg/dL (75-110); POTASSIUM 3.6 mmol/L (3.6-5.0); SODIUM 137.1 mmol/L (137-145)
[2016-10-22 09:22] LABS: BASOPHILS % (MANUAL) 0 % (0-2); EOSINOPHILS % (MANUAL) 0 % (0-6); LYMPHOCYTES % (MANUAL) 37 % (13-45); TOTAL CELLS COUNTED 100
[2016-10-22 09:31] LABS: TOXIC VACUOLATION PRESENT
[2016-10-22 09:32] LABS: POIKILOCYTOSIS 2+; POLYCHROMASIA SLIGHT; TARGET CELLS 2+
[2016-10-22 09:33] LABS: ANISOCYTOSIS 2+
--- NOTE | 2016-10-22 13:09 | PDOC PROGRESS REPORT ---
Subjective Progress Note for:: 10/22/16 Subjective:: Patient has intermittent confusion per nursing staff. He apparently was supposed to have AV fistula surgery today as an outpatient. Patient denies fever, chills, headache, chest pain, shortness of breath, abdominal pain. Physical Exam Vital Signs: Temp Pulse Resp BP Pulse Ox 99.0 F 101 H 16 117/38 L 98 10/22/16 07:35 10/22/16 07:35 10/22/16 07:35 10/22/16 07:35 10/22/16 07:35 Intake & Output 10/21/16 10/22/16 10/23/16 06:59 06:59 06:59 Intake Total 974 1038 Output Total 0 Balance 974 1038 Weight 58.1 kg 58.2 kg GENERAL: No acute distress HEENT: Conjunctiva clear, nonicteric, moist mucous membranes, no JVD, midline trachea RESPIRATORY: Clear to auscultation bilaterally, no wheezes, no rhonchi CARDIAC: Regular rate and rhythm, no murmurs/gallops/rubs ABDOMEN: Soft, nondistended, nontender, positive bowel sounds, no rebound, no guarding EXTREMETIES: No edema, cyanosis, clubbing NEUROLOGIC: Alert, oriented to person/place/time, CN's grossly intact, no focal deficits SKIN: No rash, wounds PSYCH: Normal mood, normal affect Results Laboratory Results: 10/22/16 08:34 10/22/16 08:34 10/22/16 10/22/16 08:34 08:34 WBC 8.2 RBC 3.67 L Hgb 10.7 L Hct 32.5 L MCV 89 MCH 29.1 MCHC 32.8 RDW 19.2 H Plt Count 126 L Seg Neutrophils % Not Reportable Lymphocytes % Not Reportable Monocytes % Not Reportable Eosinophils % Not Reportable Basophils % Not Reportable Absolute Neutrophils Not Reportable Absolute Lymphocytes Not Reportable Absolute Monocytes Not Reportable Absolute Eosinophils Not Reportable Absolute Basophils Not Reportable Sodium 137.1 Potassium 3.6 Chloride 103 Carbon Dioxide 26 Anion Gap 8 BUN 11 Creatinine 2.51 H Est GFR ( Amer) 31 L Est GFR (Non-Af Amer) 26 L Glucose 119 H Calcium 7.5 L 10/16/16 21:50 Blood Blood Culture - Final NO GROWTH IN 5 DAYS Impressions: Chest X-Ray 10/16/16 16:54 IMPRESSION: NO ACUTE RADIOGRAPHIC FINDING IN THE CHEST. Abdomen X-Ray 10/16/16 20:18 IMPRESSION: NO RADIOGRAPHIC EVIDENCE FOR ACUTE ABDOMINAL DISEASE. Moderate amount of stool projects over the rectum. Assessment & Plan - Diagnosis (1) Sepsis with metabolic encephalopathy Is this a current diagnosis for this admission?: YesPlan: Blood pressure now stable. Patient afebrile. White blood count normal. (2) UTI (urinary tract infection) Qualifiers: Urinary tract infection type: acute cystitis Hematuria presence: without hematuria Qualified Code(s): N30.00 - Acute cystitis without hematuria Is this a current diagnosis for this admission?: YesPlan: Urine culture growing Pseudomonas sensitive to Levaquin. Continue oral Levaquin (3) ESRD on hemodialysis Is this a current diagnosis for this admission?: YesPlan: Nephrology following. Continue hemodialysis on Friday. (4) Ambulatory dysfunction Is this a current diagnosis for this admission?: YesPlan: Awaiting bed offer at nursing home facility for rehab. (5) Anemia in chronic kidney disease (CKD) Qualifiers: Chronic kidney disease stage: on chronic dialysis Qualified Code(s) : N18.6 - End stage renal disease; D63.1 - Anemia in chronic kidney disease; Z99.2 - Dependence on renal dialysis Is this a current diagnosis for this admission?: Yes (6) Hypertension Is this a current diagnosis for this admission?: YesPlan: Blood pressure stable. (7) DNR (do not resuscitate) Is this a current diagnosis for this admission?: Yes - Time Time Spent with patient: 25-34 minutes Anticipated discharge: SNF Within: when bed available
[2016-10-22] MEDS: MIRTAZAPINE 15 MG TABLET PO SCH (22:07)
[2016-10-23] MEDS ORDERED: NORMAL SALINE 1000 ML 1,000 ML IV PRN (05:00)
[2016-10-23 05:33] LABS: ABSOLUTE BASOPHILS # (AUTO) 0.1 10^3/uL (0.0-0.2); ABSOLUTE EOSINOPHILS # (AUTO) 0.1 10^3/uL (0.0-0.6); ABSOLUTE LYMPHOCYTES (AUTO) 2.3 10^3/uL (0.5-4.7); ABSOLUTE MONOCYTES (AUTO) 1.1 10^3/uL (0.1-1.4); ABSOLUTE NEUT (AUTO) 4.2 10^3/uL (1.7-8.2); BASOPHILS % (AUTO) 1.1 % (0-2); EOSINOPHILS % (AUTO) 1.8 % (0-6); HEMATOCRIT 27.2 % (37.9-51.0); HEMOGLOBIN 9.2 g/dL (13.5-17.0); HGB HCT DIFFERENCE 0.4; LYMPHOCYTES % (AUTO) 29.2 % (13-45); MEAN CORPUSCULAR HEMOGLOBIN 29.8 pg (27.0-33.4); MEAN CORPUSCULAR HGB CONC 33.7 g/dL (32.0-36.0); MEAN CORPUSCULAR VOLUME 88 fl (80-97); MONOCYTES % (AUTO) 13.9 % (3-13); RED BLOOD COUNT 3.08 10^6/uL (4.35-5.55); RED CELL DISTRIBUTION WIDTH 18.9 % (11.5-14.0); WHITE BLOOD COUNT 7.7 10^3/uL (4.0-10.5)
[2016-10-23 05:57] LABS: ANION GAP 6 (5-19); BLOOD UREA NITROGEN 13 mg/dL (7-20); CALCIUM 7.4 mg/dL (8.4-10.2); CARBON DIOXIDE 27 mmol/L (22-30); CHLORIDE 103 mmol/L (98-107); CREATININE RESULT 3.14 mg/dL (0.52-1.25); GLUCOSE 85 mg/dL (75-110); POTASSIUM 3.8 mmol/L (3.6-5.0); SODIUM 136.3 mmol/L (137-145)
[2016-10-23] MEDS: LANSOPRAZOLE 30 MG TAB.RAP.DR PO SCH (05:59)
[2016-10-23] MEDS ORDERED: EPOETIN ALFA 10,000 UNIT in SYRINGE, DISPOSABLE, 1 EACH IV PRN (11:00)
[2016-10-23] MEDS ORDERED: HEPARIN SOD (PORCINE) 1,000 UNIT/ML 10 ML VIAL IV PRN (11:00)
[2016-10-23] MEDS: FOLIC ACID/VITAMIN B COMP W-C CAPSULE PO SCH (12:18)
[2016-10-23] MEDS: NICOTINE 21 MG/24 HR PATCH.TD24 TD SCH (12:18)
[2016-10-23] MEDS: MEGESTROL ACETATE SUSP 400 MG/10 ML UDCUP PO SCH (12:18)
[2016-10-23] MEDS: ASPIRIN 81 MG TABLET, ENT COATED PO SCH (12:18)
[2016-10-23] MEDS: LACTOBACILLUS ACIDOPHILUS 250 MG TAB PO SCH ×2 (12:18→17:42)
--- NOTE | 2016-10-23 12:25 | PDOC PROGRESS REPORT ---
Subjective Progress Note for:: 10/23/16 Subjective:: Patient has intermittent confusion per nursing staff. Patient has no new complaints. Patient denies fever, chills, headache, chest pain, shortness of breath, abdominal pain. Physical Exam Vital Signs: Temp Pulse Resp BP Pulse Ox 99.6 F 78 16 140/59 H 97 10/23/16 04:52 10/23/16 04:52 10/23/16 04:52 10/23/16 04:52 10/23/16 04:52 Intake & Output 10/22/16 10/23/16 10/24/16 06:59 06:59 06:59 Intake Total 1038 1095 Output Total 0 225 600 Balance 1038 870 -600 Weight 58.2 kg 58.3 kg GENERAL: No acute distress HEENT: Conjunctiva clear, nonicteric, moist mucous membranes, no JVD, midline trachea RESPIRATORY: Clear to auscultation bilaterally, no wheezes, no rhonchi CARDIAC: Regular rate and rhythm, no murmurs/gallops/rubs ABDOMEN: Soft, nondistended, nontender, positive bowel sounds, no rebound, no guarding EXTREMETIES: No edema, cyanosis, clubbing NEUROLOGIC: Alert, oriented to person/place/time, CN's grossly intact, no focal deficits SKIN: No rash, wounds PSYCH: Normal mood, normal affect Results Laboratory Results: 10/23/16 04:58 10/23/16 04:58 10/23/16 10/23/16 04:58 04:58 WBC 7.7 RBC 3.08 L Hgb 9.2 L Hct 27.2 L MCV 88 MCH 29.8 MCHC 33.7 RDW 18.9 H Plt Count 123 L Seg Neutrophils % 54.0 Lymphocytes % 29.2 Monocytes % 13.9 H Eosinophils % 1.8 Basophils % 1.1 Absolute Neutrophils 4.2 Absolute Lymphocytes 2.3 Absolute Monocytes 1.1 Absolute Eosinophils 0.1 Absolute Basophils 0.1 Sodium 136.3 L Potassium 3.8 Chloride 103 Carbon Dioxide 27 Anion Gap 6 BUN 13 Creatinine 3.14 H Est GFR ( Amer) 24 L Est GFR (Non-Af Amer) 20 L Glucose 85 Calcium 7.4 L Impressions: Chest X-Ray 10/16/16 16:54 IMPRESSION: NO ACUTE RADIOGRAPHIC FINDING IN THE CHEST. Abdomen X-Ray 10/16/16 20:18 IMPRESSION: NO RADIOGRAPHIC EVIDENCE FOR ACUTE ABDOMINAL DISEASE. Moderate amount of stool projects over the rectum. Assessment & Plan - Diagnosis (1) Sepsis with metabolic encephalopathy Is this a current diagnosis for this admission?: YesPlan: Blood pressure now stable. Patient afebrile. White blood count normal. (2) UTI (urinary tract infection) Qualifiers: Urinary tract infection type: acute cystitis Hematuria presence: without hematuria Qualified Code(s): N30.00 - Acute cystitis without hematuria Is this a current diagnosis for this admission?: YesPlan: Urine culture growing Pseudomonas sensitive to Levaquin. Continue oral Levaquin (3) ESRD on hemodialysis Is this a current diagnosis for this admission?: YesPlan: Nephrology following. Continue hemodialysis on Friday. (4) Ambulatory dysfunction Is this a current diagnosis for this admission?: YesPlan: Awaiting bed offer at care home facility for rehab. (5) Anemia in chronic kidney disease (CKD) Qualifiers: Chronic kidney disease stage: on chronic dialysis Qualified Code(s) : N18.6 - End stage renal disease; D63.1 - Anemia in chronic kidney disease; Z99.2 - Dependence on renal dialysis Is this a current diagnosis for this admission?: Yes (6) Hypertension Is this a current diagnosis for this admission?: YesPlan: Blood pressure stable. (7) DNR (do not resuscitate) Is this a current diagnosis for this admission?: Yes - Time Time Spent with patient: 25-34 minutes
[2016-10-23] MEDS: HYDROMORPHONE HCL 2 MG TABLET PO PRN ×2 (13:42→21:00)
--- NOTE | 2016-10-23 17:39 | PDOC PROGRESS REPORT ---
Subjective Progress Note for:: 10/23/16 Subjective:: The patient during dialysis this morning at around 8:45 AM. Patient is very sleepy throughout the treatment. His blood pressure was initially elevated but subsequently went down. Does not really have any other new complaints except for just feeling weak and tired. Actually completed his 2.5 hours of dialysis treatment. Physical Exam Vital Signs: Temp Pulse Resp BP Pulse Ox 99.6 F 85 16 130/42 H 96 10/23/16 15:42 10/23/16 15:42 10/23/16 15:42 10/23/16 15:42 10/23/16 15:42 Intake & Output 10/22/16 10/23/16 10/24/16 06:59 06:59 06:59 Intake Total 1038 1095 Output Total 0 225 600 Balance 1038 870 -600 Weight 58.2 kg 58.3 kg Vital signs during dialysis: Blood pressure 184/74, heart rate 77, blood flow rate 300 mL/min, dialysate flow rate 600 mL/min. Exam: General appearance: PRESENT: no acute distress, somnolent, cachectic looking Head exam: PRESENT: atraumatic, normocephalic Eye exam: PRESENT: conjunctiva pale, PERRLA. ABSENT: scleral icterus Neck exam: ABSENT: JVD Respiratory exam: PRESENT: Diminished breath sounds. ABSENT: crackles, rales, rhonchi, unlabored, wheezes Cardiovascular exam: PRESENT: Irregular rate rhythm -+S1, +S2. ABSENT: diastolic murmur, systolic murmur GI/Abdominal exam: PRESENT: normal bowel sounds, soft. ABSENT: guarding, mass, tenderness Extremities exam: ABSENT: No edema Neurological exam: PRESENT: Sleeping Skin exam: PRESENT: dry, warm, Results Laboratory Results: 10/23/16 04:58 10/23/16 04:58 10/23/16 10/23/16 04:58 04:58 WBC 7.7 RBC 3.08 L Hgb 9.2 L Hct 27.2 L MCV 88 MCH 29.8 MCHC 33.7 RDW 18.9 H Plt Count 123 L Seg Neutrophils % 54.0 Lymphocytes % 29.2 Monocytes % 13.9 H Eosinophils % 1.8 Basophils % 1.1 Absolute Neutrophils 4.2 Absolute Lymphocytes 2.3 Absolute Monocytes 1.1 Absolute Eosinophils 0.1 Absolute Basophils 0.1 Sodium 136.3 L Potassium 3.8 Chloride 103 Carbon Dioxide 27 Anion Gap 6 BUN 13 Creatinine 3.14 H Est GFR ( Amer) 24 L Est GFR (Non-Af Amer) 20 L Glucose 85 Calcium 7.4 L Impressions: Chest X-Ray 10/16/16 16:54 IMPRESSION: NO ACUTE RADIOGRAPHIC FINDING IN THE CHEST. Abdomen X-Ray 10/16/16 20:18 IMPRESSION: NO RADIOGRAPHIC EVIDENCE FOR ACUTE ABDOMINAL DISEASE. Moderate amount of stool projects over the rectum. Assessment & Plan - Diagnosis (1) ESRD on hemodialysis Is this a current diagnosis for this admission?: YesPlan: We did dialysis today for 2.5 hours, using the patient's PermCath, with 4 potassium bath for 1 and half hours followed by 3 potassium bath, blood flow rate of 300 mL per minute, dialysate flow rate of 600 mL per minute, ultrafiltration none or up to 500 mL if tolerated, no heparin and Procrit 10, 000 units intravenously during dialysis. Patient was able to complete the whole 2.5 hours of treatment today. We will continue to supervise hemodialysis while here in the hospital. [facility] to receive hemod[facility] at [facility] as an outpatient. If the patient goes to out of town rehab then he may need to go to another dialysis facility and find another visual journalist. As of now the liaison planner is arranging possible [facility] rehab placement (2) UTI (urinary tract infection) Qualifiers: Urinary tract infection type: acute cystitis Hematuria presence: without hematuria Qualified Code(s): N30.00 - Acute cystitis without hematuria Is this a current diagnosis for this admission?: YesPlan: Due to pseudomonas aeruginosa. Management per primary service. (3) Protein-calorie malnutrition, moderate Is this a current diagnosis for this admission?: YesPlan: Add some nourishment with male like Nepro. (4) Anemia in chronic kidney disease (CKD) Qualifiers: Chronic kidney disease stage: on chronic dialysis Qualified Code(s) : N18.6 - End stage renal disease; D63.1 - Anemia in chronic kidney disease; Z99.2 - Dependence on renal dialysis Is this a current diagnosis for this admission?: YesPlan: We will give Procrit as needed during dialysis. (5) Chronic pain Qualifiers: Chronic pain type: chronic pain syndrome Qualified Code(s): G89.4 - Chronic pain syndrome Is this a current diagnosis for this admission?: Yes (6) Hypoalbuminemia Is this a current diagnosis for this admission?: Yes (7) Hypertension Is this a current diagnosis for this admission?: Yes (8) Physical deconditioning Is this a current diagnosis for this admission?: Yes (9) DNR (do not resuscitate) Is this a current diagnosis for this admission?: Yes - Time Time with patient: 15-25 minutes
[2016-10-23] MEDS: INSULIN LISPRO 100 UNIT/ML 3 ML VIAL SUBCUT PRN (17:42)
[2016-10-23] MEDS: MIRTAZAPINE 15 MG TABLET PO SCH (21:01)
[2016-10-24 04:35] LABS: ABSOLUTE BASOPHILS # (AUTO) 0.1 10^3/uL (0.0-0.2); ABSOLUTE EOSINOPHILS # (AUTO) 0.1 10^3/uL (0.0-0.6); ABSOLUTE LYMPHOCYTES (AUTO) 2.3 10^3/uL (0.5-4.7); ABSOLUTE MONOCYTES (AUTO) 1.3 10^3/uL (0.1-1.4); ABSOLUTE NEUT (AUTO) 3.6 10^3/uL (1.7-8.2); EOSINOPHILS % (AUTO) 1.5 % (0-6); HEMATOCRIT 29.2 % (37.9-51.0); HEMOGLOBIN 9.7 g/dL (13.5-17.0); HGB HCT DIFFERENCE -0.1; LYMPHOCYTES % (AUTO) 30.8 % (13-45); MEAN CORPUSCULAR HEMOGLOBIN 29.6 pg (27.0-33.4); MEAN CORPUSCULAR HGB CONC 33.2 g/dL (32.0-36.0); MEAN CORPUSCULAR VOLUME 89 fl (80-97); MONOCYTES % (AUTO) 17.5 % (3-13); RED BLOOD COUNT 3.27 10^6/uL (4.35-5.55); RED CELL DISTRIBUTION WIDTH 18.8 % (11.5-14.0); SEGMENTED NEUTROPHILS % (AUTO) 49.2 % (42-78); WHITE BLOOD COUNT 7.4 10^3/uL (4.0-10.5)
[2016-10-24 04:46] LABS: ANION GAP 6 (5-19); BLOOD UREA NITROGEN 8 mg/dL (7-20); CALCIUM 7.5 mg/dL (8.4-10.2); CARBON DIOXIDE 29 mmol/L (22-30); CHLORIDE 102 mmol/L (98-107); CREATININE RESULT 2.32 mg/dL (0.52-1.25); GLUCOSE 96 mg/dL (75-110); POTASSIUM 3.8 mmol/L (3.6-5.0)
[2016-10-24] MEDS: LANSOPRAZOLE 30 MG TAB.RAP.DR PO SCH (06:11)
[2016-10-24 09:04] VITALS: BP 149/65
[2016-10-24] MEDS: LACTOBACILLUS ACIDOPHILUS 250 MG TAB PO SCH (09:06)
[2016-10-24] MEDS: FOLIC ACID/VITAMIN B COMP W-C CAPSULE PO SCH (09:06)
[2016-10-24] MEDS: NICOTINE 21 MG/24 HR PATCH.TD24 TD SCH (09:06)
[2016-10-24] MEDS: ISOSORBIDE MONONITRATE 30 MG TAB.ER.24H PO SCH (09:06)
[2016-10-24] MEDS: ASPIRIN 81 MG TABLET, ENT COATED PO SCH (09:07)
[2016-10-24] MEDS: AMLODIPINE BESYLATE 10 MG TABLET PO SCH (09:07)
[2016-10-24] MEDS: CLONIDINE HCL 0.2 MG TABLET PO SCH (09:07)
[2016-10-24] MEDS: LEVOFLOXACIN 750 MG TABLET PO SCH (09:07)
--- NOTE | 2016-10-24 11:29 | PDOC TRANSFER SUMMARY ---
General - Admit/Disc Date/PCP Admission Date/Primary Care Provider: 10/16/16 20:13 Discharge Date: 10/24/16 - Discharge Diagnosis (1) Sepsis with metabolic encephalopathy Is this a current diagnosis for this admission?: Yes (2) UTI (urinary tract infection) Is this a current diagnosis for this admission?: Yes (3) ESRD on hemodialysis Is this a current diagnosis for this admission?: Yes (4) Ambulatory dysfunction Is this a current diagnosis for this admission?: Yes (5) Anemia in chronic kidney disease (CKD) Is this a current diagnosis for this admission?: Yes (6) Hypertension Is this a current diagnosis for this admission?: Yes (7) DNR (do not resuscitate) Is this a current diagnosis for this admission?: Yes - Additional Information Resuscitation Status: Do Not Resuscitate Discharge Diet: Other (Comments) - dialysis Discharge Activity: Activity As Tolerated Home Medications: Amlodipine Besylate 10 mg PO SUTUTHSA@1000 09/27/16 Dexlansoprazole [Dexilant 60 mg Capsule] 60 mg PO DAILY 09/27/16 Isosorbide Mononitrate [Isosorbide Mononitrate ER] 30 mg PO SUTUTHSA@1000 Megestrol Acetate [Megace] 400 mg PO DAILY 09/27/16 Aspirin [Ecotrin 81 mg EC Tablet] 81 mg PO DAILY 09/28/16 Ergocalciferol (Vitamin D2) [Vitamin D2] 50,000 unit PO FR@1000 09/28/16 Ondansetron HCl [Zofran 4 mg Tablet] 4 mg PO Q6HP PRN 09/28/16 Clonidine HCl [Catapres 0.2 mg Tablet] 0.2 mg PO Q12 10/16/16 Mirtazapine [Remeron 15 mg Tablet] 15 mg PO QHS 10/16/16 Vit B Cmplx 3/FA/Vit C/Biotin [Ina-Anthony Rx Tablet] 1 tab PO DAILY 10/16/16 Calcium Carbonate [Os-Carlos Manuel 500 mg Tablet (Oyster-Shell)] 500 mg PO Q6HP PRN tablet 10/24/16 Hydromorphone HCl [Dilaudid] 4 mg PO Q8HP PRN #10 tablet 10/24/16 Levofloxacin [Levaquin 750 mg Tablet] 750 mg PO Q2D@1000 5 Days 10/24/16 History of Present Illness Admission Date/PCP: 10/16/16 20:13 Patient complains of: Fever and fatigue History of Present Illness: DANIEL MAGUIRE JR is a 66 year old male with a past medical history of noncompliance, tobacco dependence, congestive heart failure, peripheral vascular disease, Gait disorder end-stage renal failure on hemodialysis Friday, Dilaudid dependent chronic pain, has been in his usual state of health until 12 hours prior to presentation with complaints of arthralgias sore throat nonproductive cough. He tolerated hemodialysis to completion that was noted to have a fever of 101.2 prompting evaluation emergency room where he found to have urinalysis suggestive of UTI markedly leukocytosis and left lower quadrant pain. He is started on empiric antibiotics and referred to the hospitalist for admission. The patient's family is helpful however patient is minimally cooperative and swearing at hospital staff. He is not known to have new medications however he is thought to possibly take an additional Dilaudid. Hospital Course Hospital Course: Patient was admitted for sepsis secondary to urinary tract infection. He was initially started on IV Zosyn and urine culture eventually grew pansensitive Pseudomonas. He has since been transitioned to oral Levaquin and has 5 more days of Levaquin left to complete at time of discharge. Sepsis has resolved patient is clinically stable. He has end-stage renal disease and has been maintained on hemodialysis Friday and Friday while in the hospital. He will need to continue hemodialysis after discharge. He has generalized weakness and ambulatory dysfunction and will need ongoing rehabilitation after discharge. He has had mild intermittent encephalopathy that is likely multifactorial in nature. Issues include end-stage renal disease, urinary tract infection. Physical Exam Vital Signs: Temp Pulse Resp BP Pulse Ox 98.2 F 92 19 149/65 H 100 10/24/16 08:03 10/24/16 08:03 10/24/16 08:03 10/24/16 08:03 10/24/16 08:03 Intake & Output 10/23/16 10/24/16 10/25/16 06:59 06:59 06:59 Intake Total 1095 120 Output Total 225 600 Balance 870 -480 Weight 58.3 kg 61.8 kg GENERAL: No acute distress HEENT: Conjunctiva clear, nonicteric, moist mucous membranes, no JVD, midline trachea RESPIRATORY: Clear to auscultation bilaterally, no wheezes, no rhonchi CARDIAC: Regular rate and rhythm, no murmurs/gallops/rubs ABDOMEN: Soft, nondistended, nontender, positive bowel sounds, no rebound, no guarding EXTREMETIES: No edema, cyanosis, clubbing NEUROLOGIC: Alert, oriented to person/place/time, CN's grossly intact, no focal deficits SKIN: No rash, wounds PSYCH: Normal mood, normal affect Results Laboratory Results: 10/24/16 04:12 10/24/16 04:12 10/24/16 10/24/16 04:12 04:12 WBC 7.4 RBC 3.27 L Hgb 9.7 L Hct 29.2 L MCV 89 MCH 29.6 MCHC 33.2 RDW 18.8 H Plt Count 163 Seg Neutrophils % 49.2 Lymphocytes % 30.8 Monocytes % 17.5 H Eosinophils % 1.5 Basophils % 1.0 Absolute Neutrophils 3.6 Absolute Lymphocytes 2.3 Absolute Monocytes 1.3 Absolute Eosinophils 0.1 Absolute Basophils 0.1 Sodium 137.0 Potassium 3.8 Chloride 102 Carbon Dioxide 29 Anion Gap 6 BUN 8 Creatinine 2.32 H Est GFR ( Amer) 34 L Est GFR (Non-Af Amer) 28 L Glucose 96 Calcium 7.5 L Impressions: Chest X-Ray 10/16/16 16:54 IMPRESSION: NO ACUTE RADIOGRAPHIC FINDING IN THE CHEST. Abdomen X-Ray 10/16/16 20:18 IMPRESSION: NO RADIOGRAPHIC EVIDENCE FOR ACUTE ABDOMINAL DISEASE. Moderate amount of stool projects over the rectum. Transfer Plan - Disposition Transfer Plan: Transfer to [facility] - Time Spent with Patient Time spent with patient: Greater than 30 Minutes Qualifiers PATEINT BEING DISCHARGED WITH ANY OF THE FOLLOWING DIAGNOSIS?: No
== END 2016-10-24 16:10 | DRG 871 ==
LOC: ER 16:51 → UNDOADMIN 20:11 → EH 20:11 → 3N 22:25 → 4N 10-23 15:31
PROVIDERS: ADMIT Internal Medicine; ATTEND Internal Medicine
PROC: 5A1D60Z (ICD-10-PCS; principal; 2016-10-18)
DX: A41.52 Sepsis due to Pseudomonas (principal); N18.6 End stage renal disease; G93.41 Metabolic encephalopathy; I13.2 Hypertensive heart and chronic kidney disease with heart failure and with stage 5 chronic kidney disease, or end stage renal disease; I50.32 Chronic diastolic (congestive) heart failure; N30.00 Acute cystitis without hematuria; E44.0 Moderate protein-calorie malnutrition; E11.22 Type 2 diabetes mellitus with diabetic chronic kidney disease; D63.1 Anemia in chronic kidney disease; E88.09 Other disorders of plasma-protein metabolism, not elsewhere classified; K59.00 Constipation, unspecified; Z66 Do not resuscitate; B96.5 Pseudomonas (aeruginosa) (mallei) (pseudomallei) as the cause of diseases classified elsewhere; E11.51 Type 2 diabetes mellitus with diabetic peripheral angiopathy without gangrene; R26.9 Unspecified abnormalities of gait and mobility; M10.9 Gout, unspecified; M19.90 Unspecified osteoarthritis, unspecified site; K21.9 Gastro-esophageal reflux disease without esophagitis; E87.6 Hypokalemia; M51.27 Other intervertebral disc displacement, lumbosacral region; K74.60 Unspecified cirrhosis of liver; F41.1 Generalized anxiety disorder; F17.210 Nicotine dependence, cigarettes, uncomplicated; D50.9 Iron deficiency anemia, unspecified; G89.4 Chronic pain syndrome; Z99.2 Dependence on renal dialysis; Z90.49 Acquired absence of other specified parts of digestive tract; Z85.828 Personal history of other malignant neoplasm of skin; Z79.899 Other long term (current) drug therapy; Z79.82 Long term (current) use of aspirin; Z82.49 Family history of ischemic heart disease and other diseases of the circulatory system; Z79.891 Long term (current) use of opiate analgesic; Z95.5 Presence of coronary angioplasty implant and graft; Z87.11 Personal history of peptic ulcer disease
CPT/HCPCS: 36415; 51701; 71010; 74020; 80048; 80053; 81001; 82140; 82803; 82962; 83605; 83735; 84100; 85025; 85027; 85610; 87040; 87070; 87086; 87088; 87186; 87493; 87880; 93005; 93010; 96361; 96365; 99285; G8978-GP; G8979-GP; J0610; J1644; J1815; J2405; J2543; J3475; J3480; J3490; J7030; J7620; Q4081

== ENCOUNTER 2017-05-03 04:49 | Emergency (ER) | payer MEDICARE, OTHER ==
[2017-05-03] MEDS ORDERED: LIDOCAINE 2% URO-JET 5 ML KIT MM ONE (05:23)
[2017-05-03 06:01] LABS: APPEARANCE,URINE CLOUDY; BILIRUBIN,URINE NEGATIVE (NEGATIVE); COLOR,URINE RED; GLUCOSE, URINE 50 mg/dL (NEGATIVE); KETONES,URINE NEGATIVE (NEGATIVE); LEUKOCYTE ESTERASE,URINE NEGATIVE (NEGATIVE); NITRITE,URINE NEGATIVE (NEGATIVE); PROTEIN,URINE >=500 mg/dL (NEGATIVE); URINE SPECIFIC GRAVITY 1.012; UROBILINOGEN,URINE NEGATIVE mg/dL (<2.0)
[2017-05-03 06:27] LABS: ABSOLUTE BASOPHILS # (AUTO) 0.1 10^3/uL (0.0-0.2); ABSOLUTE EOSINOPHILS # (AUTO) 0.2 10^3/uL (0.0-0.6); ABSOLUTE LYMPHOCYTES (AUTO) 2.3 10^3/uL (0.5-4.7); ABSOLUTE MONOCYTES (AUTO) 1.3 10^3/uL (0.1-1.4); ABSOLUTE NEUT (AUTO) 6.5 10^3/uL (1.7-8.2); EOSINOPHILS % (AUTO) 1.8 % (0-6); HEMATOCRIT 22.4 % (37.9-51.0); LYMPHOCYTES % (AUTO) 21.9 % (13-45); MEAN CORPUSCULAR HEMOGLOBIN 31.5 pg (27.0-33.4); MEAN CORPUSCULAR HGB CONC 33.4 g/dL (32.0-36.0); MEAN CORPUSCULAR VOLUME 94 fl (80-97); MONOCYTES % (AUTO) 12.5 % (3-13); PLATELET COUNT 347 10^3/uL (150-450); RED BLOOD COUNT 2.37 10^6/uL (4.35-5.55); RED CELL DISTRIBUTION WIDTH 15.6 % (11.5-14.0); SEGMENTED NEUTROPHILS % (AUTO) 62.8 % (42-78); TOTAL CELLS COUNTED % (AUTO) 100 %; WHITE BLOOD COUNT 10.3 10^3/uL (4.0-10.5)
[2017-05-03 06:33] LABS: ALANINE AMINOTRANSFERASE 21 U/L (21-72); ALBUMIN 3.4 g/dL (3.5-5.0); ALKALINE PHOSPHATASE 115 U/L (38-126); ANION GAP 15 (5-19); ASPARTATE AMINO TRANSFERASE 32 U/L (17-59); BILIRUBIN,DIRECT 0.3 mg/dL (0.0-0.4); BILIRUBIN,TOTAL 0.3 mg/dL (0.2-1.3); BLOOD UREA NITROGEN 60 mg/dL (7-20); CALCIUM 9.1 mg/dL (8.4-10.2); CARBON DIOXIDE 18 mmol/L (22-30); CHLORIDE 107 mmol/L (98-107); GLUCOSE 103 mg/dL (75-110); POTASSIUM 5.7 mmol/L (3.6-5.0); TOTAL PROTEIN 7.2 g/dL (6.3-8.2)
[2017-05-03 06:35] LABS: HEMOGLOBIN 7.5 g/dL (13.5-17.0)
--- NOTE | 2017-05-03 06:58 | ER Document Report ---
ED General - General Chief Complaint: Urinary Problem Stated Complaint: BLADDER PAIN Time Seen by Provider: 05/03/17 06:08 Mode of Arrival: Medic Information source: Patient Notes: 67-year-old male presents with concerns of urinary retention for 24 hours. Patient has end-stage renal disease presents with complaints of not having dialysis all week. Patient was noted to be diagnosed with a UTI 2 days ago started on unknown antibiotic. Patient has had blood in his urine since TRAVEL OUTSIDE OF THE [place] IN LAST 30 DAYS: No - HPI Onset: Yesterday Onset/Duration: Persistent Quality of pain: Pressure Severity: Moderate Pain Level: 3 Associated symptoms: Other Exacerbated by: Denies Relieved by: Denies Similar symptoms previously: Yes Recently seen / treated by doctor: Yes - Related Data Allergies/Adverse Reactions: No Known Allergies Allergy (Verified 10/16/16 17:40) Past Medical History - Social History Smoking Status: Unknown if Ever Smoked Cigarette use (# per day): No Chew tobacco use (# tins/day): No Smoking Education Provided: No Frequency of alcohol use: None Drug Abuse: None Family History: Hypertension Patient has suicidal ideation: No Patient has homicidal ideation: No - Past Medical History Cardiac Medical History: Reports: Hx Congestive Heart Failure, Hx Hypertension Denies: Hx Coronary Artery Disease, Hx DVT, Hx Heart Attack, Hx Hypercholesterolemia, Hx Pulmonary Embolism Pulmonary Medical History: Denies: Hx Asthma, Hx Bronchitis, Hx COPD, Hx Pneumonia, Hx Sleep Apnea Neurological Medical History: Denies: Hx Cerebrovascular Accident, Hx Seizures Endocrine Medical History: Denies: Hx Diabetes Mellitus Type 1, Hx Diabetes Mellitus Type 2, Hx Hyperthyroidism, Hx Hypothyroidism Renal/ Medical History: Reports: Hx End Stage Renal Disease, Hx Hemodialysis, Hx Kidney Stones. Denies: Hx Peritoneal Dialysis Malignancy Medical History: Reports Hx Skin Cancer GI Medical History: Reports: Hx Cirrhosis, Hx Gastroesophageal Reflux Disease, Hx Ulcer Musculoskeltal Medical History: Reports Hx Arthritis, Reports Hx Gout Psychiatric Medical History: Reports: Hx Depression Infectious Medical History: Denies: Hx C-Diff, Hx MRSA Past Surgical History: Reports: Hx Appendectomy, Hx Cholecystectomy, Hx Herniorrhaphy, Hx Orthopedic Surgery - B elbow, R wrist, Hx Vascular Surgery - Perm catheter for dialysis; fistula formation, maturing, for dialysis., Other - Cataract extraction - Immunizations Immunizations up to date: No Hx Diphtheria, Pertussis, Tetanus Vaccination: Yes Hx Pneumococcal Vaccination: 12/29/14 Review of Systems - Review of Systems Notes: REVIEW OF SYSTEMS: CONSTITUTIONAL : Denies fever, chills, or sweats. Denies recent illness. EENT: Denies eye, ear, throat, or mouth pain or symptoms. Denies nasal or sinus congestion or discharge. Denies throat, tongue, or mouth swelling or difficulty swallowing. CARDIOVASCULAR: Denies chest pain. Denies palpitations or racing or irregular heart beat. Denies ankle edema. RESPIRATORY: Denies cough, cold, or chest congestion. Denies shortness of breath, difficulty breathing, or wheezing. GASTROINTESTINAL: Denies abdominal pain or distention. Denies nausea, vomiting , or diarrhea. Denies blood in vomitus, stools, or per rectum. Denies black, tarry stools. Denies constipation. GENITOURINARY: Admits to blood in urine urinary retention MUSCULOSKELETAL: Denies back or neck pain or stiffness. Denies joint pain or swelling. SKIN: Denies rash, lesions or sores. HEMATOLOGIC : Denies easy bruising or bleeding. LYMPHATIC: Denies swollen, enlarged glands. NEUROLOGICAL: Denies confusion or altered mental status. Denies passing out or loss of consciousness. Denies dizziness or lightheadedness. Denies headache. Denies weakness or paralysis or loss of use of either side. Denies problems with gait or speech. Denies sensory loss, numbness, or tingling. Denies seizures. PSYCHIATRIC: Denies anxiety or stress. Denies depression, suicidal ideation, or homicidal ideation. ALL OTHER SYSTEMS REVIEWED AND NEGATIVE. Dictation was performed using [employer] voice recognition software PHYSICAL EXAMINATION: GENERAL: Well-appearing, well-nourished and in no acute distress. HEAD: Atraumatic, normocephalic. EYES: Pupils equal round and reactive to light, extraocular movements intact, sclera anicteric, conjunctiva are normal. ENT: Nares patent, oropharynx clear without exudates. Moist mucous membranes. NECK: Normal range of motion, supple without lymphadenopathy LUNGS: Breath sounds clear to auscultation bilaterally and equal. No wheezes rales or rhonchi. HEART: Regular rate and rhythm without murmurs ABDOMEN: Soft, tender distended bladder Musculoskeletal: Normal range of motion, no pitting or edema. No cyanosis. NEUROLOGICAL: Cranial nerves grossly intact. Normal speech, normal gait. Normal sensory, motor exams PSYCH: Normal mood, normal affect. SKIN: Pale Physical Exam - Vital signs Vitals: Temp Pulse Resp BP Pulse Ox 97.5 F 93 20 157/60 H 99 05/03/17 04:57 05/03/17 04:57 05/03/17 04:57 05/03/17 04:57 05/03/17 04:57 Course - Re-evaluation Re-evalutation: 05/03/17 06:58 Patient's chronic kidney disease is noted, lab work has been ordered off of laser printing [facility] blood which notes anemia and hyperkalemia, I will repeat his blood work to confirm. tellez placed 05/03/17 07:45 hyperkalemia and anemia confirmed, pt needs dialysis and transfusion [facility] paged they are on diversion [facility] same issue [facility] paged 05/03/17 08:08 Dr arango will accept patient - Vital Signs Vital signs: Temp Pulse Resp BP Pulse Ox 97.5 F 93 16 135/70 H 99 05/03/17 04:57 05/03/17 04:57 05/03/17 07:45 05/03/17 07:45 05/03/17 07:45 - Laboratory Result Diagrams: 05/03/17 06:30 05/03/17 06:30 Laboratory results interpreted by me: 05/03/17 05/03/17 05/03/17 04:34 04:34 05:15 RBC 2.37 L Hgb 7.5 L Hct 22.4 L RDW 15.6 H Potassium 5.7 H Chloride Carbon Dioxide 18 L BUN 60 H Creatinine 8.04 H Est GFR ( Amer) 8 L Est GFR (Non-Af Amer) 7 L Albumin 3.4 L Urine Protein >=500 H Urine Glucose (UA) 50 H Urine Blood LARGE H Crossmatch 05/03/17 05/03/17 05/03/17 06:30 06:30 06:50 RBC 2.47 L Hgb 7.7 L Hct 23.3 L RDW 16.2 H Potassium 5.7 H Chloride 108 H Carbon Dioxide 16 L BUN 60 H Creatinine 7.83 H Est GFR ( Amer) 8 L Est GFR (Non-Af Amer) 7 L Albumin 2.9 L Urine Protein Urine Glucose (UA) Urine Blood Crossmatch See Detail - Diagnostic Test Radiology reviewed: Image reviewed, Reports reviewed Critical Care Note - Critical Care Note Total time excluding time spent on procedures (mins): 45 Comments: 45 minutes of critical care time spent in direct contact evaluating and reevaluating the patient, treating symptoms, reviewing labs and studies and speaking with family and consultants excluding any procedures Discharge - Discharge Clinical Impression: ESRD on hemodialysis, Urinary retention Anemia in chronic kidney disease (CKD) Qualifiers: Chronic kidney disease stage: on chronic dialysis Qualified Code(s): N18.6 - End stage renal disease; D63.1 - Anemia in chronic kidney disease; D63.1 - Anemia in chronic kidney disease; Z99.2 - Dependence on renal dialysis; Z99.2 - Dependence on renal dialysis; Z99.2 - Dependence on renal dialysis; Z99.2 - Dependence on renal dialysis Hematuria Qualifiers: Hematuria type: unspecified type Qualified Code(s): R31.9 - Hematuria, unspecified Condition: Fair Disposition: [facility] Referrals: FRANCINE FRAUSTO MD [Primary Care Provider] - Follow up as needed
[2017-05-03 07:10] LABS: ALANINE AMINOTRANSFERASE 21 U/L (21-72); ALBUMIN 2.9 g/dL (3.5-5.0); ALKALINE PHOSPHATASE 96 U/L (38-126); ANION GAP 16 (5-19); ASPARTATE AMINO TRANSFERASE 21 U/L (17-59); BILIRUBIN,DIRECT 0.2 mg/dL (0.0-0.4); BILIRUBIN,TOTAL 0.2 mg/dL (0.2-1.3); BLOOD UREA NITROGEN 60 mg/dL (7-20); CARBON DIOXIDE 16 mmol/L (22-30); CHLORIDE 108 mmol/L (98-107); GLUCOSE 91 mg/dL (75-110); POTASSIUM 5.7 mmol/L (3.6-5.0); SODIUM 139.5 mmol/L (137-145); TOTAL PROTEIN 6.3 g/dL (6.3-8.2)
[2017-05-03 07:15] LABS: ABSOLUTE BASOPHILS # (AUTO) 0.1 10^3/uL (0.0-0.2); ABSOLUTE EOSINOPHILS # (AUTO) 0.2 10^3/uL (0.0-0.6); ABSOLUTE LYMPHOCYTES (AUTO) 1.8 10^3/uL (0.5-4.7); ABSOLUTE MONOCYTES (AUTO) 1.2 10^3/uL (0.1-1.4); ABSOLUTE NEUT (AUTO) 6.7 10^3/uL (1.7-8.2); BASOPHILS % (AUTO) 1.2 % (0-2); EOSINOPHILS % (AUTO) 1.8 % (0-6); HEMATOCRIT 23.3 % (37.9-51.0); LYMPHOCYTES % (AUTO) 18.3 % (13-45); MEAN CORPUSCULAR HEMOGLOBIN 31.2 pg (27.0-33.4); MEAN CORPUSCULAR HGB CONC 33.1 g/dL (32.0-36.0); MEAN CORPUSCULAR VOLUME 94 fl (80-97); MONOCYTES % (AUTO) 11.9 % (3-13); PLATELET COUNT 319 10^3/uL (150-450); RED BLOOD COUNT 2.47 10^6/uL (4.35-5.55); RED CELL DISTRIBUTION WIDTH 16.2 % (11.5-14.0); SEGMENTED NEUTROPHILS % (AUTO) 66.8 % (42-78); TOTAL CELLS COUNTED % (AUTO) 100 %
[2017-05-03] MEDS ORDERED: INSULIN REG, HUMAN 100 UNIT/ML 3 ML VIAL (PYX) IV ONE (07:25)
[2017-05-03] MEDS ORDERED: SODIUM BICARBONATE 8.4% INJ 50 MEQ/50 ML DISP.SYRIN IV ONE (07:25)
[2017-05-03] MEDS ORDERED: DEXTROSE 50%-WATER 25 GM/50 ML DISP.SYRIN IV ONE (07:25)
[2017-05-03] MEDS ORDERED: ALBUTEROL SULFATE 0.083% NEB 2.5 MG/3 ML AMPUL NEB ONE (07:25)
[2017-05-03 07:26] LABS: HEMOGLOBIN 7.7 g/dL (13.5-17.0)
[2017-05-03] MEDS ORDERED: NORMAL SALINE 250 ML IV PRN ×2 (07:26)
--- NOTE | 2017-05-03 07:28 | RADIOLOGY REPORT (SQ) ---
EXAM DESCRIPTION: CT LTD RENAL STONE PROTOCOL ON COMPLETED DATE/TIME: 05/03/2017 7:01 am REASON FOR STUDY: hematuria, urinary retention . Right lower quadrant and left lower quadrant pain. Prior appendectomy and cholecystectomy. COMPARISON: CT abdomen and pelvis 02/21/2015. TECHNIQUE: CT scan of the abdomen and pelvis performed without intravenous or oral contrast. Images reviewed with lung, soft tissue, and bone windows. Reconstructed coronal and sagittal MPR images revi ewed. All images stored on PACS. All CT scanners at this facility use dose modulation, iterative reconstruction, and/or weight based d osing when appropriate to reduce radiation dose to as low as reasonably achievable (ALARA). [facility]: Dose Right [facility]: CareDose [facility]: Dose Right [facility]: Teradose 4D [facility]: [employer] RADIATION DOSE: mGy. LIMITATIONS: None. FINDINGS: LOWER CHEST: There are moderate bilateral pleural effusions with bibasilar ground-glass op acities. NON-CONTRASTED LIVER, SPLEEN, ADRENALS: Evaluation limited by lack of IV contrast. No identified sign ificant masses. PANCREAS: No peripancreatic inflammatory changes. GALLBLADDER: Surgically absent. RIGHT KIDNEY AND URETER: There is mild right-sided hydronephrosis. There is increased density at the renal collecting system and ureter, suggestive of blood products. No ureteral calculus is identifie d. Nonobstructing calculi at the right kidney measuring up to 4 mm. There is a 14 mm cortical hyper dense lesion at the interpolar region of the right kidney. There is a 39 mm cyst at the superior marleni e of the right kidney. LEFT KIDNEY AND URETER: There is no hydronephrosis. Nonobstructing calculi at the left kidney measur ing up to 5 mm. There is a 13 mm cortical hyperdense lesion at the left kidney AORTA AND RETROPERITONEUM: Atherosclerotic calcifications in the abdominal aorta and its branches. N o abdominal aortic aneurysm. No retroperitoneal hemorrhage BOWEL AND PERITONEAL CAVITY: No dilated bowel loops or inflammatory changes. No free fluid. APPENDIX: Surgically absent. PELVIS, BLADDER, AND ABDOMINAL WALL:The urinary bladder is decompressed by a Nazario catheter. Hyperde nse material at the urinary bladder, suggestive of blood products. There is no pelvic mass. No free fluid. BONES: Degenerative changes at the spine. IMPRESSION: 1. Mild right-sided hydronephrosis with blood products at the renal collecting system a nd right ureter, with no obstructing ureteral calculus identified, may be secondary to a recently pa ssed calculus versus malignancy such as transitional cell carcinoma. 2. Blood products at the urinary bladder. 3. Bilateral nephrolithiasis. 4. Bilateral hyperdense renal cortical lesions, may represent proteinaceous or hemorrhagic cysts. Ev aluation with nonemergent renal ultrasound recommended to exclude underlying neoplasm. 5. Moderate bilateral pleural effusions with bibasilar ground-glass opacities, may represent atelecta sis or pneumonia. COMMENT: Quality ID # [id number]: Final reports with documentation of one or more dose reduction techniques (e.g., Automated exposure control, adjustment of the mA and/or kV according to patient size, use of iterative reconstruction technique) TECHNICAL DOCUMENTATION: JOB ID: [id number] [place]-64 2010 [employer]- All Rights Reserved
--- NOTE | 2017-05-03 07:34 | RADIOLOGY REPORT (SQ) ---
EXAM DESCRIPTION: CHEST SINGLE VIEW COMPLETED DATE/TIME: 05/03/2017 7:11 am REASON FOR STUDY: dialysis patient COMPARISON: Chest x-ray 10/16/2016. EXAM PARAMETERS: NUMBER OF VIEWS: One view. TECHNIQUE: Single frontal radiographic view of the chest acquired. RADIATION DOSE: NA LIMITATIONS: Positioning. FINDINGS: LUNGS AND PLEURA: The patient is rotated. There are bibasilar ground-glass opacities. N o sizable pleural effusion or pneumothorax. MEDIASTINUM AND HILAR STRUCTURES: No masses. Contour normal. HEART AND VASCULAR STRUCTURES: The heart is upper normal limit in size. There is no overt vascular c ongestion. BONES: No acute findings. HARDWARE: Right-sided dual-lumen central catheter with the tip overlying the region of the right atri um. IMPRESSION: Bibasilar ground-glass opacities, may represent atelectasis or pneumonia. TECHNICAL DOCUMENTATION: JOB ID: [id number] [place]-64 2010 [employer]- All Rights Reserved
--- NOTE | 2017-05-03 08:34 | EKG REPORT ---
SEVERITY:- ABNORMAL ECG - SINUS OR ECTOPIC ATRIAL RHYTHM LOW VOLTAGE IN FRONTAL LEADS NONSPECIFIC T ABNORMALITIES, ANTERIOR LEADS, THIS IS NEW, COMPARED TO EKG 10/16/16 . CLINICAL CORRELAT ION NEEDED. BORDERLINE PROLONGED QT INTERVAL : Confirmed by: John Paul Avalos MD 03-May-2017 08:33:38
[2017-05-03 09:30] LABS: INTERNATIONAL RATION (INR) 0.99; PROTHROMBIN TIME 13.8 SEC (11.4-15.4)
[2017-05-03 10:08] VITALS: BP 147/68
== END 2017-05-03 10:20 | disposition short-term general hospital (02) ==
LOC: ER 04:49
DX: I13.2 Hypertensive heart and chronic kidney disease with heart failure and with stage 5 chronic kidney disease, or end stage renal disease (principal); N18.6 End stage renal disease; Z99.2 Dependence on renal dialysis; D63.1 Anemia in chronic kidney disease; R33.9 Retention of urine, unspecified; E87.5 Hyperkalemia; Z85.828 Personal history of other malignant neoplasm of skin; Z90.49 Acquired absence of other specified parts of digestive tract
CPT/HCPCS: 93005; 86900; 86901; 36415; 36430; 86850; 85025; 85610; 80053; 81001; 86920; 83605; 71045; 76380; 93010; P9016; J3490 ×2; A9270 ×2; J7050; J1815

== ENCOUNTER 2017-05-08 04:05 | Inpatient (IN) | payer MEDICARE, OTHER ==
[2017-05-08] MEDS ORDERED: NORMAL SALINE 500 ML IV ONE (06:47)
[2017-05-08] MEDS ORDERED: HYDROMORPHONE HCL INJ/PF 2 MG/ML AMPULE IV ONE ×2 (06:52→12:14)
[2017-05-08] MEDS ORDERED: ONDANSETRON HCL INJ/PF 4 MG/2 ML SDV IV ONE (06:52)
[2017-05-08 07:22] LABS: ABSOLUTE BASOPHILS # (AUTO) 0.2 10^3/uL (0.0-0.2); ABSOLUTE EOSINOPHILS # (AUTO) 0.3 10^3/uL (0.0-0.6); ABSOLUTE LYMPHOCYTES (AUTO) 2.1 10^3/uL (0.5-4.7); ABSOLUTE MONOCYTES (AUTO) 1.4 10^3/uL (0.1-1.4); ABSOLUTE NEUT (AUTO) 7.6 10^3/uL (1.7-8.2); BASOPHILS % (AUTO) 1.5 % (0-2); EOSINOPHILS % (AUTO) 2.3 % (0-6); HEMATOCRIT 27.7 % (37.9-51.0); HEMOGLOBIN 8.9 g/dL (13.5-17.0); LYMPHOCYTES % (AUTO) 18.1 % (13-45); MEAN CORPUSCULAR HEMOGLOBIN 30.8 pg (27.0-33.4); MEAN CORPUSCULAR HGB CONC 32.3 g/dL (32.0-36.0); MEAN CORPUSCULAR VOLUME 95 fl (80-97); PLATELET COUNT 223 10^3/uL (150-450); RED BLOOD COUNT 2.91 10^6/uL (4.35-5.55); RED CELL DISTRIBUTION WIDTH 16.6 % (11.5-14.0); SEGMENTED NEUTROPHILS % (AUTO) 66.1 % (42-78); TOTAL CELLS COUNTED % (AUTO) 100 %; WHITE BLOOD COUNT 11.5 10^3/uL (4.0-10.5)
[2017-05-08 07:34] LABS: ALANINE AMINOTRANSFERASE 20 U/L (21-72); ALBUMIN 2.8 g/dL (3.5-5.0); ALKALINE PHOSPHATASE 84 U/L (38-126); ANION GAP 10 (5-19); ASPARTATE AMINO TRANSFERASE 30 U/L (17-59); BILIRUBIN,DIRECT 0.3 mg/dL (0.0-0.4); BILIRUBIN,TOTAL 0.3 mg/dL (0.2-1.3); BLOOD UREA NITROGEN 11 mg/dL (7-20); CALCIUM 8.5 mg/dL (8.4-10.2); CARBON DIOXIDE 24 mmol/L (22-30); CHLORIDE 103 mmol/L (98-107); GLUCOSE 103 mg/dL (75-110); POTASSIUM 4.3 mmol/L (3.6-5.0); SODIUM 137.1 mmol/L (137-145); TOTAL PROTEIN 5.8 g/dL (6.3-8.2)
--- NOTE | 2017-05-08 07:42 | RADIOLOGY REPORT (SQ) ---
EXAM DESCRIPTION: CT ABDOMEN AND PELVIS WITHOUT CONTRAST CLINICAL HISTORY: left flank pain COMPARISON: 05/03/2017 TECHNIQUE: CT of the abdomen and pelvis without IV contrast. FINDINGS: Abdomen: Liver has normal size and density. Interval development of pneumobilia. Prior cholecystectomy. The spleen, pancreas, and adrenal glands are unremarkable. Interval placement of double-J right ureteral stent. Unchanged 1.3 cm hyperdense cortical lesion in the left kidney. Unchanged 1.4 cm cortical hyperdense lesion in the right kidney. Unchanged 4.0 cm right renal cyst. Bilateral nephrolithiasis. No hydronephrosis. Aortoiliac atherosclerosis. IVC is unremarkable. No free intraperitoneal air. The stomach and duodenum have normal course. Pelvis: Prostate is not enlarged. Urinary bladder is unremarkable. Small amount of free pelvic fluid. No dilated loops of large or small bowel. Appendix is not definitely identified. Coronary artery atherosclerosis. Cardiomegaly. Moderate bilateral pleural effusions and bibasilar opacities. Degenerative change of the spine. DLP: 586.73 mGy-cm IMPRESSION: 1. Interval placement of right double-J ureteral stent. No hydronephrosis. Bilateral renal calculi identified. 2. Interval development of pneumobilia. This could be related to previous cholecystectomy or recent biliary intervention. 3. Cardiomegaly with coronary artery atherosclerosis. 4. Small amount of ascites. 5. Moderate bilateral pleural effusions with bibasilar airspace opacities possibly related to compressive atelectasis. This exam was performed according to our departmental dose-optimization program, which includes automated exposure control, adjustment of the mA and/or kV according to patient size and/or use of iterative reconstruction technique.
[2017-05-08 09:49] LABS: APPEARANCE,URINE SLIGHTLY-CLOUDY; BILIRUBIN,URINE NEGATIVE (NEGATIVE); COLOR,URINE YELLOW; GLUCOSE, URINE 50 mg/dL (NEGATIVE); KETONES,URINE NEGATIVE (NEGATIVE); LEUKOCYTE ESTERASE,URINE SMALL (NEGATIVE); NITRITE,URINE NEGATIVE (NEGATIVE); PROTEIN,URINE >=500 mg/dL (NEGATIVE); URINE SPECIFIC GRAVITY 1.009; UROBILINOGEN,URINE NEGATIVE mg/dL (<2.0)
--- NOTE | 2017-05-08 11:34 | ER Document Report ---
ED General - General Chief Complaint: Flank Pain Stated Complaint: FLANK PAIN Time Seen by Provider: 05/08/17 06:11 TRAVEL OUTSIDE OF THE [place] IN LAST 30 DAYS: No - HPI Patient complains to provider of: Left flank pain Notes: Patient coming in for evaluation of left flank pain. 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 Patient is on Dilaudid patient states that his Dilaudid is not helping his pain. Upon my evaluation patient is sitting up in bed rocking back and forth complaining of left flank pain. Denies any chest pain shortness of breath. Patient moving all 4 extremities. Denies any fevers chills nausea vomiting states normal bowel movements his history of diarrhea. Patient states last bowel movement was yesterday. - Related Data Allergies/Adverse Reactions: No Known Allergies Allergy (Verified 10/16/16 17:40) Past Medical History - Social History Smoking Status: Current Every Day Smoker Drug Abuse: None Family History: Hypertension Patient has suicidal ideation: No Patient has homicidal ideation: No - Past Medical History Cardiac Medical History: Reports: Hx Congestive Heart Failure, Hx Hypertension Denies: Hx Coronary Artery Disease, Hx DVT, Hx Heart Attack, Hx Hypercholesterolemia, Hx Pulmonary Embolism Pulmonary Medical History: Denies: Hx Asthma, Hx Bronchitis, Hx COPD, Hx Pneumonia, Hx Sleep Apnea Neurological Medical History: Denies: Hx Cerebrovascular Accident, Hx Seizures Endocrine Medical History: Denies: Hx Diabetes Mellitus Type 1, Hx Diabetes Mellitus Type 2, Hx Hyperthyroidism, Hx Hypothyroidism Renal/ Medical History: Reports: Hx End Stage Renal Disease, Hx Hemodialysis, Hx Kidney Stones. Denies: Hx Peritoneal Dialysis Malignancy Medical History: Reports Hx Skin Cancer GI Medical History: Reports: Hx Cirrhosis, Hx Gastroesophageal Reflux Disease, Hx Ulcer Musculoskeltal Medical History: Reports Hx Arthritis, Reports Hx Gout Psychiatric Medical History: Reports: Hx Depression Infectious Medical History: Denies: Hx C-Diff, Hx MRSA Past Surgical History: Reports: Hx Appendectomy, Hx Cholecystectomy, Hx Herniorrhaphy, Hx Orthopedic Surgery - B elbow, R wrist, Hx Vascular Surgery - Perm catheter for dialysis; fistula formation, maturing, for dialysis., Other - Cataract extraction - Immunizations Immunizations up to date: No Hx Diphtheria, Pertussis, Tetanus Vaccination: Yes Hx Pneumococcal Vaccination: 12/29/14 Review of Systems - Review of Systems Constitutional: No symptoms reported EENT: No symptoms reported Cardiovascular: No symptoms reported Respiratory: No symptoms reported Gastrointestinal: No symptoms reported Genitourinary: Flank pain Male Genitourinary: No symptoms reported Musculoskeletal: No symptoms reported Skin: No symptoms reported Hematologic/Lymphatic: No symptoms reported Neurological/Psychological: No symptoms reported -: Yes All other systems reviewed and negative Physical Exam - Vital signs Vitals: Temp Pulse Resp BP Pulse Ox 97.8 F 81 18 147/62 H 95 05/08/17 04:15 05/08/17 04:15 05/08/17 04:15 05/08/17 04:15 05/08/17 04:15 Interpretation: Normal - General General appearance: Other - Patient sitting in bed rocking back and forth patient is cachectic looks chronically ill - HEENT Head: Normocephalic, Atraumatic Eyes: Normal Pupils: PERRL - Respiratory Respiratory status: No respiratory distress Chest status: Nontender Breath sounds: Normal Chest palpation: Normal Notes: Permacath in the right upper chest - Cardiovascular Rhythm: Regular Heart sounds: Normal auscultation Murmur: No - Abdominal Inspection: Normal Distension: No distension Bowel sounds: Normal Tenderness: Nontender Organomegaly: No organomegaly - Back Back: Normal, Nontender - Extremities General upper extremity: Normal inspection, Nontender, Normal color, Normal ROM , Normal temperature General lower extremity: Normal inspection, Nontender, Normal color, Normal ROM , Normal temperature - Neurological Neuro grossly intact: Yes Cognition: Normal Orientation: AAOx4 [place] Coma Scale Eye Opening: Spontaneous Samantha Coma Scale Verbal: Oriented [place] Coma Scale Motor: Obeys Commands Samantha Coma Scale Total: 15 Speech: Normal Motor strength normal: LUE, RUE, LLE, RLE Sensory: Normal - Psychological Associated symptoms: Normal affect, Normal mood - Skin Skin Temperature: Warm Skin Moisture: Dry Skin Color: Normal Course - Re-evaluation Re-evalutation: 05/08/17 14:40 Laboratory studies been compared to [facility] actually showed improvement in hemoglobin hematocrit also white cell count. Patient vital signs have been normal after 1 dose of IV Dilaudid patient sleeping upon reevaluation. Family at bedside concern is that we do not have a clear etiology for the patient's left flank pain. Reassured family members that CT scan was negative upon my own review only a small amount stool in the splenic flexure. This patient my concerns may be possibly becoming constipated or having bowel issues. As of the patient is on high doses of narcotic medications. Family member again expresses her concern is upset and cannot find anything wrong and is concerned the patient will develop pain again. Explained to the family member that the patient is on pain management and should receive his oral narcotics which should be adequate to control his pain however family member daughter at bedside requesting a second opinion. I explained that I will speak with her hospitalist to see about admission. Discussed with Dr. Pérez hospitalist to agrees with my assessment that the patient at this time does not have any critical etiology for pain however will briefly admit the patient for observation and further pain control. Sometimes the past before I could update the family with this plan. Upon reevaluation patient again stating that he is in pain however not rocking back and forth. I did order the patient a dose of Dilaudid 0.5 mg - Vital Signs Vital signs: Temp Pulse Resp BP Pulse Ox 97.8 F 81 18 147/62 H 95 05/08/17 04:15 05/08/17 04:15 05/08/17 04:15 05/08/17 04:15 05/08/17 04:15 - Laboratory Result Diagrams: 05/08/17 07:08 05/08/17 07:08 Laboratory results interpreted by me: 05/08/17 05/08/17 05/08/17 07:08 07:08 09:30 WBC 11.5 H RBC 2.91 L Hgb 8.9 L Hct 27.7 L RDW 16.6 H Creatinine 3.56 H Est GFR ( Amer) 21 L Est GFR (Non-Af Amer) 17 L ALT 20 L Total Protein 5.8 L Albumin 2.8 L Urine Protein >=500 H Urine Glucose (UA) 50 H Urine Blood LARGE H Ur Leukocyte Esterase SMALL H Discharge - Discharge Clinical Impression: Intractable pain, ESRD (end stage renal disease), DNI (do not intubate), Physical deconditioning Condition: Fair Disposition: ADMITTED OBSERVATION Admitting Provider: Haley - Beto Unit Admitted: Medical Floor
[2017-05-08] MEDS: OXYCODONE HCL IR 5 MG TABLET PO PRN (17:06)
[2017-05-08] MEDS: CLONIDINE HCL 0.2 MG TABLET PO SCH (21:11)
[2017-05-08] MEDS: OXYCODONE HCL SR 10 MG TABLET PO SCH (21:12)
[2017-05-08] MEDS ORDERED: CLONIDINE HCL 0.1 MG TABLET PO SCH (22:00)
--- NOTE | 2017-05-08 22:08 | PDOC CONSULTATION ---
Consultation Consult Date: 05/08/17 Attending physician:: TEMI HARPER Consult reason:: Left flank pain, right ureteral stent History of Present Illness Admission Date/PCP: 05/08/17 11:55 Patient complains of: Left flank pain History of Present Illness: 67M presents with intractable left flank pain. Urology consulted given presence of right indwelling ureteral stent and unclear etiology of current symptoms. Patient reports a recent right ureteral stent placement for obstruction (2 days ago). Denies fevers, vomiting. Past Medical History Cardiac Medical History: Reports: Congestive Heart Failure, Hypertension Denies: Coronary Artery Disease, DVT, Myocardial Infarction, Hyperlipidema, Pulmonary Embolism Pulmonary Medical History: Denies: Asthma, Bronchitis, Chronic Obstructive Pulmonary Disease (COPD), Pneumonia, Sleep Apnea EENT Medical History: Denies: None Neurological Medical History: Denies: Seizures Endocrine Medical History: Denies: Diabetes Mellitus Type 1, Diabetes Mellitus Type 2, Hyperthyroidism, Hypothyroidism Renal/ Medical History: Reports: Chronic Kidney Disease, End Stage Renal Disease, Other - GFR 17 Renal/ History Note: stent placement, nephrolithiasis Malignancy Medical History: Reports: Skin Cancer GI Medical History: Reports: Cirrhosis, Gastroesophageal Reflux Disease Musculoskeltal Medical History: Reports: Arthritis, Gout Psychiatric Medical History: Reports: Depression Hematology: Denies: Anemia Infectious Medical History: Denies: Clostridium Difficile, Methicillin-Resistant Staph Aureus Past Surgical History Past Surgical History: Reports: Appendectomy, Cholecystectomy, Herniorrhaphy, Orthopedic Surgery - B elbow, R wrist, Vascular Surgery - Perm catheter for dialysis; fistula formation, maturing, for dialysis., Other - Cataract extraction, right ureteral stent Social History Information Source: Patient, [facility] Records Lives with: Detention Smoking Status: Current Every Day Smoker Frequency of Alcohol Use: None Hx Recreational Drug Use: No Drugs: None Hx Prescription Drug Abuse: No - Advance Directive Resuscitation Status: Do Not Intubate Family History Family History: Hypertension Parental Family History Reviewed: No Children Family History Reviewed: No Sibling(s) Family History Reviewed.: No Medication/Allergy Home Medications: Amlodipine Besylate 10 mg PO SUTUTHSA@1000 09/27/16 Aspirin [Ecotrin 81 mg EC Tablet] 81 mg PO DAILY 09/28/16 Clonidine HCl [Catapres 0.2 mg Tablet] 0.2 mg PO BID 10/16/16 Mirtazapine [Remeron 15 mg Tablet] 15 mg PO QHS 10/16/16 Hydromorphone HCl [Dilaudid] 4 mg PO Q8HP PRN #10 tablet 10/24/16 Calcium Carbonate [Os-Carlos Manuel 500 mg Tablet (Oyster-Shell)] 1,250 mg PO BID Ergocalciferol (Vitamin D2) [Ergocal] 5,000 unit PO DAILY 05/08/17 Isosorbide Mononitrate [Imdur 30 mg Tablet.er] 30 mg PO SUTUTHSA@1000 05/08/17 Levothyroxine Sodium [Synthroid 0.025 mg Tablet] 25 mcg PO DAILY 05/08/17 Nicotine [Nicoderm 14 mg/24 Hr Transdermal Patch] 1 patch TD DAILY 05/08/17 Omeprazole 20 mg PO DAILY 05/08/17 Oseltamivir Phosphate [Tamiflu] 30 mg PO BID 05/08/17 Vit B Comp No.3/Folic/C/Biotin [Nephro-Anthony Rx Tablet] 1 each PO DAILY 05/08/17 Allergies/Adverse Reactions: No Known Allergies Allergy (Verified 10/16/16 17:40) Review of Systems Constitutional: PRESENT: anorexia. ABSENT: fever(s) Eyes: ABSENT: visual disturbances Ears: ABSENT: hearing changes Nose, Mouth, and Throat: ABSENT: sore throat Cardiovascular: ABSENT: edema Respiratory: ABSENT: cough Gastrointestinal: ABSENT: abdominal pain Genitourinary: PRESENT: hematuria, other - flank pain Integumentary: ABSENT: diaphoresis Neurological: ABSENT: focal weakness Physical Exam Vital Signs: Temp Pulse Resp BP Pulse Ox 97.8 F 81 17 168/75 H 99 05/08/17 04:15 05/08/17 04:15 05/08/17 21:01 05/08/17 21:01 05/08/17 21:01 Intake & Output 05/07/17 05/08/17 05/09/17 06:59 06:59 06:59 Weight 62 kg General appearance: PRESENT: no acute distress, thin, other - cachetic, sleeping , chronically ill-appearing. ABSENT: mild distress Head exam: PRESENT: atraumatic Eye exam: PRESENT: conjunctiva pink Mouth exam: PRESENT: moist Neck exam: PRESENT: full ROM Respiratory exam: PRESENT: unlabored Cardiovascular exam: PRESENT: RRR Pulses: PRESENT: normal radial pulses GI/Abdominal exam: PRESENT: soft. ABSENT: ascites, distended Rectal exam: PRESENT: deferred Gentrourinary exam: ABSENT: indwelling catheter Extremities exam: PRESENT: full ROM Musculoskeletal exam: PRESENT: normal inspection Neurological exam: PRESENT: other - Pt repeatedly dozing off during examination.. ABSENT: alert Results Laboratory Results: GFR 17 Impressions: Limited or Localized CT 05/08/17 06:47 IMPRESSION: 1. Interval placement of right double-J ureteral stent. No hydronephrosis. Bilateral renal calculi identified. 2. Interval development of pneumobilia. This could be related to previous cholecystectomy or recent biliary intervention. 3. Cardiomegaly with coronary artery atherosclerosis. 4. Small amount of ascites. 5. Moderate bilateral pleural effusions with bibasilar airspace opacities possibly related to compressive atelectasis. This exam was performed according to our departmental dose-optimization program, which includes automated exposure control, adjustment of the mA and/or kV according to patient size and/or use of iterative reconstruction technique. Status: Image reviewed by - I personally reviewed all images associated with the CT abdomen pelvis performed on 05/08/2017. There is an indwelling right JJ ureteral stent. It appears unencrusted and in good position. The right and left collecting systems are decompressed. The bladder is not distended. Multiple bilateral renal cysts present. Lack of IV contrast limits further characterization. Rest per radiology Assessment & Plan - Diagnosis (1) History of ureter stent Is this a current diagnosis for this admission?: No Plan: No indication for surgical intervention at this time as there does not appear to be any hydronephrosis on either side. The patient should follow up with [facility]rology for further management of the indwelling right ureteral stent. (2) Physical deconditioning Is this a current diagnosis for this admission?: Yes (3) Chronic pain Qualifiers: Chronic pain type: chronic pain syndrome Qualified Code(s): G89.4 - Chronic pain syndrome Is this a current diagnosis for this admission?: Yes (5) ESRD on hemodialysis Is this a current diagnosis for this admission?: Yes - Inpatient Certification Based on my medical assessment, after consideration of the patient's comorbidities, presenting symptoms, or acuity I expect that the services needed warrant INPATIENT care.: Yes I certify that my determination is in accordance with my understanding of Medicare's requirements for reasonable and necessary INPATIENT services [42 CFR 412.3e].: Yes Medical Necessity: Failure to Improve With Outpatient Therapy - Plan Summary Plan Summary: Follow up with [facility] for right ureteral stent management. Addendum: I spoke with the patient's and daughter. She describes pain consistent with renal colic, however there is no evidence for obstruction on the most recent CT abdomen. He could have passed a stone, but there is no stone debris noted in his diaper. He may have experienced a ruptured renal cyst, however these typically do not cause pain, and he has not had gross hematuria since the right sided stent was placed. Family does not believe this is related to bladder spasm, b/c he had that pain with a previous indwelling tellez and this is distinctly different. Daughter requested additional imaging, but the patients symptoms have improved with analgesia and IVF. I do not see an indication for surgical intervention, nor an etiology for Mr. Franz's left flank pain. I recommend continued observation and follow up as an outpatient.
[2017-05-09] MEDS: OXYCODONE HCL IR 5 MG TABLET PO PRN ×3 (03:09→20:36)
[2017-05-09] MEDS: LEVOTHYROXINE SODIUM 0.025 MG TABLET PO SCH (05:33)
[2017-05-09 06:59] LABS: HEMATOCRIT 27.7 % (37.9-51.0); HEMOGLOBIN 9.1 g/dL (13.5-17.0); MEAN CORPUSCULAR HEMOGLOBIN 30.8 pg (27.0-33.4); MEAN CORPUSCULAR HGB CONC 32.7 g/dL (32.0-36.0); MEAN CORPUSCULAR VOLUME 94 fl (80-97); PLATELET COUNT 216 10^3/uL (150-450); RED BLOOD COUNT 2.93 10^6/uL (4.35-5.55); RED CELL DISTRIBUTION WIDTH 16.8 % (11.5-14.0); WHITE BLOOD COUNT 9.4 10^3/uL (4.0-10.5)
[2017-05-09 07:22] LABS: ANION GAP 7 (5-19); BLOOD UREA NITROGEN 14 mg/dL (7-20); CALCIUM 8.7 mg/dL (8.4-10.2); CARBON DIOXIDE 25 mmol/L (22-30); CHLORIDE 104 mmol/L (98-107); GLUCOSE 94 mg/dL (75-110); MAGNESIUM 1.8 mg/dL (1.6-2.3); PHOSPHORUS 5.1 mg/dL (2.5-4.5); POTASSIUM 4.4 mmol/L (3.6-5.0); SODIUM 136.1 mmol/L (137-145)
[2017-05-09] MEDS ORDERED: NORMAL SALINE 1000 ML 1,000 ML IV PRN (08:44)
[2017-05-09] MEDS ORDERED: HEPARIN SOD (PORCINE) 1,000 UNIT/ML 10 ML VIAL IV PRN ×2 (08:44→10:16)
[2017-05-09] MEDS ORDERED: EPOETIN ALFA INJ 20000 UNIT/1 ML VIAL (RENAL) IV PRN (08:44)
[2017-05-09] MEDS: OXYCODONE HCL SR 10 MG TABLET PO SCH ×2 (09:58→21:30)
[2017-05-09] MEDS: CLONIDINE HCL 0.2 MG TABLET PO SCH ×2 (09:58→21:30)
--- NOTE | 2017-05-09 13:12 | PDOC H&P ---
History of Present Illness Admission Date/PCP: 05/08/17 11:55 Patient complains of: flank pain History of Present Illness: DANIEL MAGUIRE JR is a 67 year old male who presents to the emergency department with L flank pain and LUQ abdominal pain. 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 The patient was transferred back to his custodial ([facility]) and was only there for approximately 6 hours before returning to the emergency department with intractable pain. The patient was taking 4mg PO dilaudid q4hrs PRN but this was not enough to relieve his pain. Patient has a PMH of HTN, ESRD, GERD, Cirrhosis, Vitamin D deficiency, PVD, nephrolithiasis, hematuria Patient seen in ED rm11 and appeared visibly in pain. Was treated with IV dilaudid in the ED, will convert to longer acting PO analgesia. Past Medical History Cardiac Medical History: Reports: Congestive Heart Failure, Hypertension Denies: Coronary Artery Disease, DVT, Myocardial Infarction, Hyperlipidema, Pulmonary Embolism Pulmonary Medical History: Denies: Asthma, Bronchitis, Chronic Obstructive Pulmonary Disease (COPD), Pneumonia, Sleep Apnea Neurological Medical History: Denies: Seizures Endocrine Medical History: Denies: Diabetes Mellitus Type 1, Diabetes Mellitus Type 2, Hyperthyroidism, Hypothyroidism Renal/ Medical History: Reports: End Stage Renal Disease Malignancy Medical History: Reports: Skin Cancer GI Medical History: Reports: Cirrhosis, Gastroesophageal Reflux Disease Musculoskeltal Medical History: Reports: Arthritis, Gout Psychiatric Medical History: Reports: Depression Hematology: Denies: Anemia Infectious Medical History: Denies: Clostridium Difficile, Methicillin-Resistant Staph Aureus Past Surgical History Past Surgical History: Reports: Appendectomy, Cholecystectomy, Herniorrhaphy, Orthopedic Surgery - B elbow, R wrist, Vascular Surgery - Perm catheter for dialysis; fistula formation, maturing, for dialysis., Other - Cataract extraction Social History Smoking Status: Current Every Day Smoker Frequency of Alcohol Use: None Hx Recreational Drug Use: No Drugs: None Hx Prescription Drug Abuse: No - Advance Directive Resuscitation Status: Do Not Intubate Family History Family History: Hypertension Parental Family History Reviewed: Yes Children Family History Reviewed: Unknown Sibling(s) Family History Reviewed.: Unknown Medication/Allergy Home Medications: Amlodipine Besylate 10 mg PO SUTUTHSA@1000 09/27/16 Aspirin [Ecotrin 81 mg EC Tablet] 81 mg PO DAILY 09/28/16 Clonidine HCl [Catapres 0.2 mg Tablet] 0.2 mg PO BID 10/16/16 Mirtazapine [Remeron 15 mg Tablet] 15 mg PO QHS 10/16/16 Hydromorphone HCl [Dilaudid] 4 mg PO Q8HP PRN #10 tablet 10/24/16 Calcium Carbonate [Os-Carlos Manuel 500 mg Tablet (Oyster-Shell)] 1,250 mg PO BID Ergocalciferol (Vitamin D2) [Ergocal] 5,000 unit PO DAILY 05/08/17 Isosorbide Mononitrate [Imdur 30 mg Tablet.er] 30 mg PO SUTUTHSA@1000 05/08/17 Levothyroxine Sodium [Synthroid 0.025 mg Tablet] 25 mcg PO DAILY 05/08/17 Nicotine [Nicoderm 14 mg/24 Hr Transdermal Patch] 1 patch TD DAILY 05/08/17 Omeprazole 20 mg PO DAILY 05/08/17 Oseltamivir Phosphate [Tamiflu] 30 mg PO BID 05/08/17 Vit B Comp No.3/Folic/C/Biotin [Nephro-Anthony Rx Tablet] 1 each PO DAILY 05/08/17 Allergies/Adverse Reactions: No Known Allergies Allergy (Verified 10/16/16 17:40) Review of Systems Constitutional: PRESENT: weakness Eyes: ABSENT: visual disturbances Ears: ABSENT: hearing changes Cardiovascular: ABSENT: as per HPI, chest pain, dyspnea on exertion, edema, orthropnea, palpitations, other Gastrointestinal: PRESENT: abdominal pain Musculoskeletal: PRESENT: back pain, muscle weakness Neurological: PRESENT: as per HPI Endocrine: PRESENT: cold intolerance Physical Exam Vital Signs: Temp Pulse Resp BP Pulse Ox 97.8 F 81 18 147/62 H 95 05/08/17 04:15 05/08/17 04:15 05/08/17 04:15 05/08/17 04:15 05/08/17 04:15 General appearance: PRESENT: other - PAIN Head exam: PRESENT: normocephalic Eye exam: PRESENT: PERRLA Mouth exam: PRESENT: dry mucosa Teeth exam: PRESENT: poor dentation Neck exam: PRESENT: full ROM Respiratory exam: PRESENT: clear to auscultation nan Cardiovascular exam: PRESENT: RRR, +S1, +S2 Pulses: PRESENT: normal radial pulses GI/Abdominal exam: PRESENT: normal bowel sounds, tenderness - LUQ tender to palpation Rectal exam: PRESENT: deferred Extremities exam: PRESENT: full ROM Musculoskeletal exam: PRESENT: full ROM Neurological exam: PRESENT: alert, awake Psychiatric exam: PRESENT: appropriate affect Skin exam: PRESENT: dry Results Impressions: Limited or Localized CT 05/08/17 06:47 IMPRESSION: 1. Interval placement of right double-J ureteral stent. No hydronephrosis. Bilateral renal calculi identified. 2. Interval development of pneumobilia. This could be related to previous cholecystectomy or recent biliary intervention. 3. Cardiomegaly with coronary artery atherosclerosis. 4. Small amount of ascites. 5. Moderate bilateral pleural effusions with bibasilar airspace opacities possibly related to compressive atelectasis. This exam was performed according to our departmental dose-optimization program, which includes automated exposure control, adjustment of the mA and/or kV according to patient size and/or use of iterative reconstruction technique. Assessment & Plan - Diagnosis (1) Intractable pain Is this a current diagnosis for this admission?: Yes Plan: Patient was discharged from [facility] yesterday (05/07/2017) following R renal stent placement for renal papillary necrosis. Patient was on a regiment of PRN dilaudid q4hrs at the custodial but this was not controlling his pain. EMS was called to bring patient to hospital for intractable pain. Patient started on scheduled longer-acting oxycontin and PRN immediate release oxycodone. Will continue to reassess pain and adjust regimen as needed (2) DNI (do not intubate) Is this a current diagnosis for this admission?: Yes Plan: Daughter states the patient does not wish to be intubated. He would like CPR and to be chemically coded if needed. (3) Physical deconditioning Is this a current diagnosis for this admission?: Yes Plan: Pt appears to be very thin, daughter states he typically stays in bed most of the time. Patient has very little appetite and typically only asks for medication to relieve his pain. The patient currently resides at [facility]. (4) ESRD on hemodialysis Is this a current diagnosis for this admission?: Yes Plan: Creatinine upon admission 3.2, very close to baseline. Patient was recently hospitalized for R renal papillary necrosis and had renal stent placed. Just prior to this the creatinine peaked at 8.0. Now back to baseline range. Will consult renal regarding HD recommendations. - Time Time Spent: 50 to 70 Minutes Anticipated discharge: SNF Within: within 72 hours - Inpatient Certification Based on my medical assessment, after consideration of the patient's comorbidities, presenting symptoms, or acuity I expect that the services needed warrant INPATIENT care.: Yes I certify that my determination is in accordance with my understanding of Medicare's requirements for reasonable and necessary INPATIENT services [42 CFR 412.3e].: Yes Medical Necessity: Need for Pain Control - Plan Summary Plan Summary: Inpatient admit to medical floor with continuous pulse oximetry. Scheduled oral analgesics for pain control and PRN for breakthrough pain
[2017-05-09] MEDS ORDERED: HYDROMORPHONE HCL INJ/PF 2 MG/ML AMPULE IV ONE (14:00)
--- NOTE | 2017-05-09 15:20 | PDOC CONSULTATION ---
Consultation Consult Date: 05/09/17 Attending physician:: FADUMO MAGALLON Consult reason:: I was asked to see the patient to supervise hemodialysis while here in the hospital. History of Present Illness Admission Date/PCP: 05/08/17 11:55 Patient complains of: Severe left flank pain History of Present Illness: DANIEL MAGUIRE JR is a 67 year old male known to me with history of end-stage renal disease on maintenance hemodialysis approximately 3 times a week but has been noncompliant, nephrolithiasis, liver cirrhosis who presents to the emergency department with L flank pain and LUQ abdominal pain. Patient was recently hospitalized at [facility] last Friday, May 03 for hematuria, and 2 renal stents placed, and was discharged from [facility] on 05/07/2017. The patient was transferred back to his shelter ([facility]) and was only there for approximately 6 hours before returning to the emergency department with intractable pain. The patient was taking 4mg PO dilaudid q4hrs PRN for his chronic back pain managed by pain management but this was not enough to relieve his pain. Subsequently he was brought to the emergency room. When I saw him he just received some pain medication so is basically almost sedated. This was confirmed with the patient's daughter, Michelle at bedside. She denies that the patient have any other symptoms including nausea, vomiting, or fever. She claims that when the patient was discharged home from [facility] was doing well. I discussed the CT scan findings which basically did not show anything that needs intervention. Patient was also evaluated by our urologist here. Patient's daughter is very concerned about his pain and was wanting to repeat a CT scan or a kidney ultrasound which I explained to hair is probably not enough show anything new that we can do anything about. She mentioned something about transferred to [facility] as well. This morning we dialyze the patient for 1 hour and 50 minutes only since the patient wanted to get off the dialysis machine because of the pain. Otherwise he tolerated dialysis without any much issues. At this time patient is sleeping and does not really have any other complaints. Past Medical History Cardiac Medical History: Reports: CHF-Diastolic, Hypertension-primary, Pulmonary Hypertension EENT Medical History: Denies: None Neurological Medical History: Reports: Other - History of lumbar disc herniation , chronic back pain managed by pain specia Renal/ Medical History: Reports: End Stage Renal Disease, Hyperphosphatemia, Proteinuria, Other - GFR 17 Malignancy Medical History: Reports: Skin Cancer GI Medical History: Reports: Cirrhosis, Gastroesophageal Reflux Disease, Peptic Ulcer Disease Musculoskeltal Medical History: Reports: Arthritis, Gout Psychiatric Medical History: Reports: Depression, General Anxiety Disorder, Tobacco Dependency Hematology Medical History: Reports Anemia of Chronic Kidney Disease, Reports Iron Deficiency Anemia Past Surgical History Past Surgical History: Reports: Appendectomy, Cholecystectomy, Cystostomy - With insertion of ureteral stent, subsequently removed., Dialysis Access Surgery AVF, Herniorrhaphy, Orthopedic Surgery - B elbow, R wrist, Vascular Surgery - Perm catheter for dialysis; fistula formation, maturing, for dialysis. , Other - Cataract extraction, right ureteral stent placement 05/04/2017 Social History Lives with: Group Home Smoking Status: Current Every Day Smoker Cigarettes Packs Per Day: 1 Number of Years Smokin Last Time Smoked: 05/07/2017 Frequency of Alcohol Use: None Hx Recreational Drug Use: No Drugs: None Hx Prescription Drug Abuse: No - Advance Directive Resuscitation Status: Do Not Intubate Family History Family History: Malignancy - Breast cancer in his mother, Other - Cirrhosis in his father Parental Family History Reviewed: Yes Children Family History Reviewed: Yes Sibling(s) Family History Reviewed.: Unknown Medication/Allergy Home Medications: Amlodipine Besylate 10 mg PO SUTUTHSA@1000 09/27/16 Aspirin [Ecotrin 81 mg EC Tablet] 81 mg PO DAILY 09/28/16 Clonidine HCl [Catapres 0.2 mg Tablet] 0.2 mg PO BID 10/16/16 Mirtazapine [Remeron 15 mg Tablet] 15 mg PO QHS 10/16/16 Hydromorphone HCl [Dilaudid] 4 mg PO Q8HP PRN #10 tablet 10/24/16 Calcium Carbonate [Os-Carlos Manuel 500 mg Tablet (Oyster-Shell)] 1,250 mg PO BID Ergocalciferol (Vitamin D2) [Ergocal] 5,000 unit PO DAILY 05/08/17 Isosorbide Mononitrate [Imdur 30 mg Tablet.er] 30 mg PO SUTUTHSA@1000 05/08/17 Levothyroxine Sodium [Synthroid 0.025 mg Tablet] 25 mcg PO DAILY 05/08/17 Nicotine [Nicoderm 14 mg/24 Hr Transdermal Patch] 1 patch TD DAILY 05/08/17 Omeprazole 20 mg PO DAILY 05/08/17 Oseltamivir Phosphate [Tamiflu] 30 mg PO BID 05/08/17 Vit B Comp No.3/Folic/C/Biotin [Nephro-Anthony Rx Tablet] 1 each PO DAILY 05/08/17 Allergies/Adverse Reactions: No Known Allergies Allergy (Verified 10/16/16 17:40) Review of Systems ROS unobtainable: Due to mental status, Other - Currently sedated Physical Exam Vital Signs: Temp Pulse Resp BP Pulse Ox 97.4 F 79 17 163/77 H 98 05/09/17 13:00 05/08/17 23:11 05/09/17 13:00 05/09/17 13:00 05/09/17 13:00 Pulse Oximeter Continuous Start: 05/08/17 14: 16 Freq: RTQ4 Status: Active Document 05/09/17 12:00 LDA (Rec: 05/09/17 12:29 LDA [email or web address]) Pulse Oximetry Assessment Oxygen Saturation (92-100) 96 Oxygen Delivery Method Room Air Fraction of Inspired Oxygen (FIO2) 21 Equipment Usage Equipment Standby Continuous SpO2 Machine # 0 Additional RT Notes Other pt. on a monitor Intake & Output 05/08/17 05/09/17 05/10/17 06:59 06:59 06:59 Weight 62 kg Past vitals at the end of dialysis treatment earlier: Blood pressure 165/79, heart rate of 71, blood flow rate 350 mL/min, dialysate flow rate 600 mL/min, no ultrafiltration was obtained. Exam: General appearance: no acute distress, cooperative, patient is very thin, currently sedated due to pain medications Head exam: PRESENT: atraumatic, normocephalic Eye exam: PRESENT: Conjunctiva pale, EOMI, PERRLA. ABSENT: conjunctival injection, scleral icterus Mouth exam: PRESENT: moist, neck supple, tongue midline Neck exam: PRESENT: full ROM. ABSENT: carotid bruit, JVD, lymphadenopathy, thyromegaly Respiratory exam: PRESENT: clear to auscultation bilaterally. ABSENT: rales, rhonchi, stridor, wheezes Cardiovascular exam: PRESENT: RRR, +S1, +S2. ABSENT: systolic murmur Pulses: PRESENT: normal radial pulses, normal dorsalis pedis pulses GI/Abdominal exam: PRESENT: normal bowel sounds, soft. ABSENT: guarding, mass, tenderness Rectal exam: deferred Extremities exam: PRESENT: full ROM. ABSENT: calf tenderness, pedal edema Musculoskeletal: PRESENT: full ROM. ABSENT: deformity Neurological exam: PRESENT: Currently sleeping and sedated due to pain meds Psychiatric exam: PRESENT: appropriate affect, normal mood. ABSENT: homicidal ideation, suicidal ideation Skin exam: PRESENT: intact, dry, warm. ABSENT: rash Results Laboratory Results: 05/09/17 06:53 05/09/17 06:53 05/09/17 05/09/17 05/09/17 06:53 06:53 08:17 WBC 9.4 RBC 2.93 L Hgb 9.1 L Hct 27.7 L MCV 94 MCH 30.8 MCHC 32.7 RDW 16.8 H Plt Count 216 Sodium 136.1 L Potassium 4.4 Chloride 104 Carbon Dioxide 25 Anion Gap 7 BUN 14 Creatinine 4.28 H Est GFR ( Amer) 17 L Est GFR (Non-Af Amer) 14 L Glucose 94 Calcium 8.7 Phosphorus 5.1 H Magnesium 1.8 Ammonia < 8.7 L Impressions: Limited or Localized CT 05/08/17 06:47 IMPRESSION: 1. Interval placement of right double-J ureteral stent. No hydronephrosis. Bilateral renal calculi identified. 2. Interval development of pneumobilia. This could be related to previous cholecystectomy or recent biliary intervention. 3. Cardiomegaly with coronary artery atherosclerosis. 4. Small amount of ascites. 5. Moderate bilateral pleural effusions with bibasilar airspace opacities possibly related to compressive atelectasis. This exam was performed according to our departmental dose-optimization program, which includes automated exposure control, adjustment of the mA and/or kV according to patient size and/or use of iterative reconstruction technique. Assessment & Plan - Diagnosis (1) Acute left flank pain Is this a current diagnosis for this admission?: Yes Plan: There is nothing in the CT scan that can explain his pain. He could either be neuropathic pain, musculoskeletal pain, or a ruptured cyst from the kidneys. Neither of this requires any intervention. Urology was also consulted and no intervention is recommended. The patient's daughter is considering possible transfer to [facility]. I explained to her that there is no reason for transfer since no intervention is being recommended. However I relayed this message to the hospitalist and see if that is possible. (2) ESRD (end stage renal disease) Is this a current diagnosis for this admission?: Yes Plan: We did dialysis today for planned for 3 hours but he only stayed for 1 hour and 15 minutes, using the patient's PermCath, with 2 potassium bath, blood flow rate of 350 mL per minute, dialysate flow rate of 600 mL per minute, ultrafiltration unable to obtain, no heparin and no Procrit during dialysis . (3) History of ureter stent Is this a current diagnosis for this admission?: No Plan: Recently done at [facility] on 05/04/2017 at the right ureter. (4) Chronic pain Qualifiers: Chronic pain type: chronic pain syndrome Qualified Code(s): G89.4 - Chronic pain syndrome Is this a current diagnosis for this admission?: Yes (5) Hypertension Is this a current diagnosis for this admission?: Yes (6) DNR (do not resuscitate) Is this a current diagnosis for this admission?: Yes - Notes Notes: Thank you very much for this consultation. Discussed the case with the patient' s daughter at bedside. Also discussed patient's condition with the urologist and the hospitalist. - Time Time Spent: 50 to 70 Minutes
[2017-05-09] MEDS ORDERED: NICOTINE 14 MG/24 HR PATCH.TD24 TD SCH (18:00)
--- NOTE | 2017-05-09 20:34 | RADIOLOGY REPORT (SQ) ---
EXAM DESCRIPTION: MRI LT LOWER EXTREMITY WITHOUT COMPLETED DATE/TIME: 05/09/2017 8:13 pm REASON FOR STUDY: er 11 left foot wound COMPARISON: No prior studies. TECHNIQUE: Multiplanar imaging of the right foot to include fat and fluid sensitive sequences. LIMITATIONS: None. FINDINGS: BONE MARROW: There is abnormal marrow signal involving the base of the distal phalanx of t he great toe with decreased signal on T1 and increased signal on STIR images. Indistinct appearance of the medial cortex. SOFT TISSUES: Soft tissue edema/ inflammation involving the great toe with surface irregularity secon jacob to superficial ulceration. No abnormal fluid collection. OTHER: No other significant finding. IMPRESSION: SOFT TISSUE EDEMA/INFLAMMATION INVOLVING THE GREAT TOE WITH SOFT TISSUE ULCERATION. NO EVIDENCE OF ABSCESS. THERE IS ABNORMAL APPEARANCE OF THE BASE OF THE DISTAL PHALANX WITH MARROW TYE A AND MEDIAL CORTICAL DESTRUCTION, CONSISTENT WITH OSTEOMYELITIS. RECOMMEND CORRELATION WITH X-RAY. TECHNICAL DOCUMENTATION: JOB ID: [id number] [employer]- All Rights Reserved
[2017-05-09] MEDS: NICOTINE 21 MG/24 HR PATCH.TD24 TD SCH (20:43)
--- NOTE | 2017-05-09 21:44 | PDOC PROGRESS REPORT ---
Subjective Progress Note for:: 05/09/17 Subjective:: Daughter was upset about patient's pain. At time of encounter patient was eating lunch and appeared to be in no pain. Explained to daughter that we are adjusting his medications to help control his pain. Reason For Visit: INTRACTABLE PAIN Physical Exam Vital Signs: Temp Pulse Resp BP Pulse Ox 98.4 F 79 19 158/68 H 99 05/09/17 17:40 05/08/17 23:11 05/09/17 19:00 05/09/17 19:00 05/09/17 19:00 Pulse Oximeter Continuous Start: 05/08/17 14: 16 Freq: RTQ4 Status: Active Document 05/09/17 16:00 LDA (Rec: 05/09/17 16:05 LDA [email or web address]) Pulse Oximetry Assessment Equipment Usage Equipment Standby Continuous SpO2 Machine # 00 Intake & Output 05/08/17 05/09/17 05/10/17 06:59 06:59 06:59 Weight 62 kg General appearance: PRESENT: no acute distress, thin Head exam: PRESENT: atraumatic, normocephalic Eye exam: PRESENT: conjunctiva pink, EOMI. ABSENT: scleral icterus Ear exam: PRESENT: normal external ear exam Mouth exam: PRESENT: moist, tongue midline Neck exam: ABSENT: carotid bruit, JVD, lymphadenopathy, thyromegaly Respiratory exam: PRESENT: clear to auscultation nan. ABSENT: rales, rhonchi, wheezes Cardiovascular exam: PRESENT: RRR. ABSENT: diastolic murmur, rubs, systolic murmur Pulses: PRESENT: normal dorsalis pedis pul Vascular exam: PRESENT: normal capillary refill GI/Abdominal exam: PRESENT: normal bowel sounds, soft. ABSENT: distended, guarding, mass, organolmegaly, rebound, tenderness Rectal exam: PRESENT: deferred Extremities exam: PRESENT: full ROM. ABSENT: calf tenderness, clubbing, pedal edema Neurological exam: PRESENT: alert, awake, oriented to person, oriented to place , oriented to time, oriented to situation, CN II-XII grossly intact. ABSENT: motor sensory deficit Psychiatric exam: PRESENT: flat affect Skin exam: PRESENT: other - right great toe with open wound. Results Laboratory Results: 05/09/17 06:53 05/09/17 06:53 0205/09/17 05/09/17 06:53 06:53 08:17 WBC 9.4 RBC 2.93 L Hgb 9.1 L Hct 27.7 L MCV 94 MCH 30.8 MCHC 32.7 RDW 16.8 H Plt Count 216 Sodium 136.1 L Potassium 4.4 Chloride 104 Carbon Dioxide 25 Anion Gap 7 BUN 14 Creatinine 4.28 H Est GFR ( Amer) 17 L Est GFR (Non-Af Amer) 14 L Glucose 94 Calcium 8.7 Phosphorus 5.1 H Magnesium 1.8 Ammonia < 8.7 L Impressions: Limited or Localized CT 05/08/17 06:47 IMPRESSION: 1. Interval placement of right double-J ureteral stent. No hydronephrosis. Bilateral renal calculi identified. 2. Interval development of pneumobilia. This could be related to previous cholecystectomy or recent biliary intervention. 3. Cardiomegaly with coronary artery atherosclerosis. 4. Small amount of ascites. 5. Moderate bilateral pleural effusions with bibasilar airspace opacities possibly related to compressive atelectasis. This exam was performed according to our departmental dose-optimization program, which includes automated exposure control, adjustment of the mA and/or kV according to patient size and/or use of iterative reconstruction technique. Lower Extremity MRI 05/09/17 17:02 IMPRESSION: SOFT TISSUE EDEMA/INFLAMMATION INVOLVING THE GREAT TOE WITH SOFT TISSUE ULCERATION. NO EVIDENCE OF ABSCESS. THERE IS ABNORMAL APPEARANCE OF THE BASE OF THE DISTAL PHALANX WITH MARROW EDEMA AND MEDIAL CORTICAL DESTRUCTION , CONSISTENT WITH OSTEOMYELITIS. RECOMMEND CORRELATION WITH X-RAY. Assessment & Plan - Diagnosis (1) Chronic osteomyelitis Is this a current diagnosis for this admission?: Yes Plan: MRI demonstrates osteo-. Will consult orthopedic surgery. Placed on vancomycin due to history of MRSA and Zosyn (2) Acute left flank pain Is this a current diagnosis for this admission?: Yes Plan: Continue to make adjustments to medications. (3) ESRD (end stage renal disease) Is this a current diagnosis for this admission?: Yes Plan: Hemodialysis (4) History of ureter stent Is this a current diagnosis for this admission?: No Plan: Recent urologist consistent with care patient does not have any indications for any surgical procedures. (5) Intractable pain Is this a current diagnosis for this admission?: Yes Plan: His pain appears to be better control will reassess in the a.m. to see if further adjustments need to be made. (6) Protein-calorie malnutrition, moderate Is this a current diagnosis for this admission?: Yes Plan: Encourage good p.o. intake. Will write for supplemental drinks (7) DNI (do not intubate) Is this a current diagnosis for this admission?: Yes - Time Time Spent with patient: 25-34 minutes
[2017-05-09] MEDS ORDERED: VANCOMYCIN HCL 0 MG in DEXTROSE 5%-WATER 250 ML IV NR (21:45)
[2017-05-09] MEDS: PIPERACILLIN SODIUM/TAZOBACTAM 2.25 GM in NORMAL SALINE 100 ML IV SCH (23:36)
[2017-05-10] MEDS ORDERED: PIPERACILLIN SODIUM/TAZOBACTAM 2.25 GM in NORMAL SALINE 50 ML IV SCH ×2
[2017-05-10] MEDS: VANCOMYCIN HCL 750 MG in DEXTROSE 5%-WATER 250 ML IV SCH (00:48)
[2017-05-10] MEDS: OXYCODONE HCL IR 5 MG TABLET PO PRN ×2 (04:05→12:11)
[2017-05-10] MEDS: LEVOTHYROXINE SODIUM 0.025 MG TABLET PO SCH (06:25)
[2017-05-10] MEDS: PIPERACILLIN SODIUM/TAZOBACTAM 2.25 GM in NORMAL SALINE 100 ML IV SCH ×3 (06:25→17:39)
[2017-05-10 07:03] LABS: HEMATOCRIT 25.9 % (37.9-51.0); HEMOGLOBIN 8.6 g/dL (13.5-17.0); MEAN CORPUSCULAR HEMOGLOBIN 31.1 pg (27.0-33.4); MEAN CORPUSCULAR HGB CONC 33.1 g/dL (32.0-36.0); MEAN CORPUSCULAR VOLUME 94 fl (80-97); PLATELET COUNT 185 10^3/uL (150-450); RED BLOOD COUNT 2.75 10^6/uL (4.35-5.55); RED CELL DISTRIBUTION WIDTH 17.1 % (11.5-14.0); WHITE BLOOD COUNT 8.7 10^3/uL (4.0-10.5)
[2017-05-10 07:23] LABS: ANION GAP 10 (5-19); BLOOD UREA NITROGEN 13 mg/dL (7-20); CALCIUM 8.4 mg/dL (8.4-10.2); CARBON DIOXIDE 24 mmol/L (22-30); CHLORIDE 101 mmol/L (98-107); GLUCOSE 97 mg/dL (75-110); MAGNESIUM 1.8 mg/dL (1.6-2.3); PHOSPHORUS 5.1 mg/dL (2.5-4.5); POTASSIUM 3.9 mmol/L (3.6-5.0); SODIUM 134.9 mmol/L (137-145)
--- NOTE | 2017-05-10 07:47 | PDOC CONSULTATION ---
Consultation Consult Date: 05/10/17 Consult reason:: Left great toe osteomyelitis History of Present Illness Admission Date/PCP: 05/08/17 11:55 History of Present Illness: The patient is a 67-year-old white male with multiple medical comorbidities who had some minor shaving for surgery for a left bunion which developed into an open sore. Subsequent imaging suggest an underlying osteomyelitis involving the distal phalanx. Past Medical History Cardiac Medical History: Reports: Congestive Heart Failure, Hypertension Denies: Coronary Artery Disease, DVT, Myocardial Infarction, Hyperlipidema, Pulmonary Embolism Pulmonary Medical History: Denies: Asthma, Bronchitis, Chronic Obstructive Pulmonary Disease (COPD), Pneumonia, Sleep Apnea EENT Medical History: Denies: None Neurological Medical History: Reports: Other - History of lumbar disc herniation , chronic back pain managed by pain specia Denies: Seizures Endocrine Medical History: Denies: Diabetes Mellitus Type 1, Diabetes Mellitus Type 2, Hyperthyroidism, Hypothyroidism Renal/ Medical History: Reports: Chronic Kidney Disease, End Stage Renal Disease, Other - GFR 17 Malignancy Medical History: Reports: Skin Cancer GI Medical History: Reports: Cirrhosis, Gastroesophageal Reflux Disease, Peptic Ulcer Disease Musculoskeltal Medical History: Reports: Arthritis, Gout Psychiatric Medical History: Reports: Depression, General Anxiety Disorder, Tobacco Dependency Hematology: Denies: Anemia Infectious Medical History: Denies: Clostridium Difficile, Methicillin-Resistant Staph Aureus Past Surgical History Past Surgical History: Reports: Appendectomy, Cholecystectomy, Herniorrhaphy, Orthopedic Surgery - B elbow, R wrist, Vascular Surgery - Perm catheter for dialysis; fistula formation, maturing, for dialysis., Other - Cataract extraction, right ureteral stent placement 05/04/2017 Social History Information Source: Patient, [facility] Records Lives with: Long-Term Smoking Status: Current Every Day Smoker Cigarettes Packs Per Day: 1 Number of Years Smokin Last Time Smoked: 05/07/2017 Frequency of Alcohol Use: None Hx Recreational Drug Use: No Drugs: None Hx Prescription Drug Abuse: No - Advance Directive Resuscitation Status: Do Not Intubate Family History Family History: Hypertension Parental Family History Reviewed: No Children Family History Reviewed: No Sibling(s) Family History Reviewed.: No Medication/Allergy Home Medications: Amlodipine Besylate 10 mg PO SUTUTHSA@1000 09/27/16 Aspirin [Ecotrin 81 mg EC Tablet] 81 mg PO DAILY 09/28/16 Clonidine HCl [Catapres 0.2 mg Tablet] 0.2 mg PO BID 10/16/16 Mirtazapine [Remeron 15 mg Tablet] 15 mg PO QHS 10/16/16 Hydromorphone HCl [Dilaudid] 4 mg PO Q8HP PRN #10 tablet 10/24/16 Calcium Carbonate [Os-Carlos Manuel 500 mg Tablet (Oyster-Shell)] 1,250 mg PO BID Ergocalciferol (Vitamin D2) [Ergocal] 5,000 unit PO DAILY 05/08/17 Isosorbide Mononitrate [Imdur 30 mg Tablet.er] 30 mg PO SUTUTHSA@1000 05/08/17 Levothyroxine Sodium [Synthroid 0.025 mg Tablet] 25 mcg PO DAILY 05/08/17 Nicotine [Nicoderm 14 mg/24 Hr Transdermal Patch] 1 patch TD DAILY 05/08/17 Omeprazole 20 mg PO DAILY 05/08/17 Oseltamivir Phosphate [Tamiflu] 30 mg PO BID 05/08/17 Vit B Comp No.3/Folic/C/Biotin [Nephro-Anthony Rx Tablet] 1 each PO DAILY 05/08/17 Allergies/Adverse Reactions: No Known Allergies Allergy (Verified 10/16/16 17:40) Review of Systems All systems: as per PMH Physical Exam Vital Signs: Temp Pulse Resp BP Pulse Ox 36.7 C 63 17 146/62 H 95 05/10/17 00:00 05/10/17 00:00 05/10/17 00:00 05/10/17 00:00 05/10/17 03:50 Pulse Oximeter Continuous Start: 05/08/17 14: 16 Freq: RTQ4 Status: Active Document 05/10/17 03:50 SFL (Rec: 05/10/17 03:50 SFL [email or web address]) Pulse Oximetry Assessment Oxygen Saturation (92-100) 95 Oxygen Delivery Method Room Air Equipment Usage Equipment in Use Continuous SpO2 Machine # 2 Intake & Output 05/09/17 05/10/17 05/11/17 06:59 06:59 06:59 Intake Total 1087 Balance 1087 Weight 62 kg 51.9 kg Physical Exam: The patient is a thin middle-aged white male somewhat disheveled appearing. He is in no distress. Is alert oriented and appropriate. General appearance: PRESENT: no acute distress Head exam: PRESENT: normocephalic Respiratory exam: PRESENT: unlabored Cardiovascular exam: PRESENT: RRR Vascular exam: PRESENT: normal capillary refill GI/Abdominal exam: PRESENT: soft Rectal exam: PRESENT: deferred Extremities exam: PRESENT: other - Examination of the left foot and left great toe demonstrates some eschar covering what appears to be an ulcer along the medial border of the great toe IP joint. There is no erythema. There is minimal tenderness. There is no drainage. There is capillary refill. Passive range of motion is not painful. Neurological exam: PRESENT: alert, awake, oriented to person, oriented to place , oriented to time, oriented to situation. ABSENT: motor sensory deficit Psychiatric exam: PRESENT: appropriate affect, normal mood. ABSENT: homicidal ideation, suicidal ideation Skin exam: PRESENT: dry, intact, warm. ABSENT: cyanosis, rash Results Laboratory Results: 05/10/17 06:23 05/10/17 06:23 05/09/17 05/10/17 05/10/17 08:17 06:23 06:23 WBC 8.7 RBC 2.75 L Hgb 8.6 L Hct 25.9 L MCV 94 MCH 31.1 MCHC 33.1 RDW 17.1 H Plt Count 185 Sodium 134.9 L Potassium 3.9 Chloride 101 Carbon Dioxide 24 Anion Gap 10 BUN 13 Creatinine 3.69 H Est GFR ( Amer) 20 L Est GFR (Non-Af Amer) 16 L Glucose 97 Calcium 8.4 Phosphorus 5.1 H Magnesium 1.8 Ammonia < 8.7 L Impressions: Limited or Localized CT 05/08/17 06:47 IMPRESSION: 1. Interval placement of right double-J ureteral stent. No hydronephrosis. Bilateral renal calculi identified. 2. Interval development of pneumobilia. This could be related to previous cholecystectomy or recent biliary intervention. 3. Cardiomegaly with coronary artery atherosclerosis. 4. Small amount of ascites. 5. Moderate bilateral pleural effusions with bibasilar airspace opacities possibly related to compressive atelectasis. This exam was performed according to our departmental dose-optimization program, which includes automated exposure control, adjustment of the mA and/or kV according to patient size and/or use of iterative reconstruction technique. Lower Extremity MRI 05/09/17 17:02 IMPRESSION: SOFT TISSUE EDEMA/INFLAMMATION INVOLVING THE GREAT TOE WITH SOFT TISSUE ULCERATION. NO EVIDENCE OF ABSCESS. THERE IS ABNORMAL APPEARANCE OF THE BASE OF THE DISTAL PHALANX WITH MARROW EDEMA AND MEDIAL CORTICAL DESTRUCTION , CONSISTENT WITH OSTEOMYELITIS. RECOMMEND CORRELATION WITH X-RAY. Status: Imported from PACS Assessment & Plan - Diagnosis (1) Chronic osteomyelitis Is this a current diagnosis for this admission?: Yes Plan: 67-year-old white male with multiple comorbidities with what appears to be a chronic osteomyelitis of the left great toe distal phalanx. At this point it seems to be clinically dormant. My recommendation is that a continued course of observation and potentially suppressive antibiotics be administered. If this becomes clinically a problem in the future consideration could be given to amputation. - Time Time Spent: 50 to 70 Minutes Anticipated discharge: Other Within: Other
[2017-05-10] MEDS: CLONIDINE HCL 0.2 MG TABLET PO SCH ×2 (10:03→21:39)
[2017-05-10] MEDS: OXYCODONE HCL SR 10 MG TABLET PO SCH ×2 (10:03→21:39)
[2017-05-10] MEDS ORDERED: DIPHENHYDRAMINE HCL 25 MG/10 ML UDC PO ONE ×2 (16:12→16:30)
--- NOTE | 2017-05-10 17:03 | PDOC PROGRESS REPORT ---
Subjective Progress Note for:: 05/10/17 Subjective:: Goldy Franz is a 67 year old male who presents to the emergency department with left flank pain and left upper quadrant abdominal pain. Patient was recently hospitalized for right renal papillary necrosis and 2 renal stents placed, and was discharged from [facility] on May 07. The patient was transferred back to his retirement and was only there for approximately 6 hours before returning to the emergency department with intractable pain. Patient was taking 4 mg p.o. Dilaudid every 4 hours as needed but this was not enough total relieve his pain. Patient has a past medical history of hypertension, ESRD, GERD, cirrhosis, vitamin D deficiency, PVD, nephrolithiasis, hematuria Patient seen on morning rounds. Sitting up in bedside chair. Patient appears to be in good spirits and states that his pain is much better controlled today. States that the pain in his left flank is "tolerable." Reason For Visit: INTRACTABLE PAIN Physical Exam Vital Signs: Temp Pulse Resp BP Pulse Ox 98.2 F 69 16 150/60 H 96 05/10/17 16:09 05/10/17 16:09 05/10/17 16:09 05/10/17 16:09 05/10/17 16:09 Pulse Oximeter Continuous Start: 05/08/17 14: 16 Freq: RTQ4 Status: Active Document 05/10/17 12:40 HCR (Rec: 05/10/17 12:40 HCR [email or web address]) Pulse Oximetry Assessment Oxygen Saturation (92-100) 96 Oxygen Delivery Method Room Air Fraction of Inspired Oxygen (FIO2) 21 Equipment Usage Equipment in Use Continuous SpO2 Machine # 2 Intake & Output 05/09/17 05/10/17 05/11/17 06:59 06:59 06:59 Intake Total 1087 450 Output Total 0 Balance 1087 450 Weight 62 kg 51.9 kg General appearance: PRESENT: no acute distress, well-developed, well-nourished Head exam: PRESENT: atraumatic, normocephalic Eye exam: PRESENT: conjunctiva pink Mouth exam: PRESENT: moist Teeth exam: PRESENT: poor dentation Neck exam: PRESENT: full ROM Respiratory exam: PRESENT: clear to auscultation nan Cardiovascular exam: PRESENT: +S1, +S2 Pulses: PRESENT: normal radial pulses Vascular exam: PRESENT: normal capillary refill GI/Abdominal exam: PRESENT: soft Rectal exam: PRESENT: deferred Extremities exam: PRESENT: full ROM Musculoskeletal exam: PRESENT: ambulatory - With assistance Neurological exam: PRESENT: alert, awake Psychiatric exam: PRESENT: appropriate affect, normal mood. ABSENT: homicidal ideation, suicidal ideation Results Laboratory Results: 05/10/17 06:23 05/10/17 06:23 05/10/17 05/10/17 06:23 06:23 WBC 8.7 RBC 2.75 L Hgb 8.6 L Hct 25.9 L MCV 94 MCH 31.1 MCHC 33.1 RDW 17.1 H Plt Count 185 Sodium 134.9 L Potassium 3.9 Chloride 101 Carbon Dioxide 24 Anion Gap 10 BUN 13 Creatinine 3.69 H Est GFR ( Amer) 20 L Est GFR (Non-Af Amer) 16 L Glucose 97 Calcium 8.4 Phosphorus 5.1 H Magnesium 1.8 Impressions: Limited or Localized CT 05/08/17 06:47 IMPRESSION: 1. Interval placement of right double-J ureteral stent. No hydronephrosis. Bilateral renal calculi identified. 2. Interval development of pneumobilia. This could be related to previous cholecystectomy or recent biliary intervention. 3. Cardiomegaly with coronary artery atherosclerosis. 4. Small amount of ascites. 5. Moderate bilateral pleural effusions with bibasilar airspace opacities possibly related to compressive atelectasis. This exam was performed according to our departmental dose-optimization program, which includes automated exposure control, adjustment of the mA and/or kV according to patient size and/or use of iterative reconstruction technique. Lower Extremity MRI 05/09/17 17:02 IMPRESSION: SOFT TISSUE EDEMA/INFLAMMATION INVOLVING THE GREAT TOE WITH SOFT TISSUE ULCERATION. NO EVIDENCE OF ABSCESS. THERE IS ABNORMAL APPEARANCE OF THE BASE OF THE DISTAL PHALANX WITH MARROW EDEMA AND MEDIAL CORTICAL DESTRUCTION , CONSISTENT WITH OSTEOMYELITIS. RECOMMEND CORRELATION WITH X-RAY. Status: Imported from PACS Assessment & Plan - Diagnosis (1) Intractable pain Is this a current diagnosis for this admission?: Yes Plan: Patient was discharged from [facility] yesterday (05/07/2017) following R renal stent placement for renal papillary necrosis. Patient was on a regiment of PRN dilaudid q4hrs at the retirement but this was not controlling his pain. EMS was called to bring patient to hospital for intractable pain. Patient started on scheduled longer-acting oxycontin and PRN immediate release oxycodone. Dosage OxyContin was increased from 10 mg to 15 mg p.o. every 12 hours. Upon assessment this morning patient states that his pain is much better controlled today than in previous days. (2) DNI (do not intubate) Is this a current diagnosis for this admission?: Yes Plan: Daughter states the patient does not wish to be intubated. He would like CPR and to be chemically coded if needed. (3) Physical deconditioning Is this a current diagnosis for this admission?: Yes Plan: Pt appears to be very thin, daughter states he typically stays in bed most of the time. Patient has very little appetite and typically only asks for medication to relieve his pain. The patient currently resides at [facility]. (4) ESRD on hemodialysis Is this a current diagnosis for this admission?: Yes Plan: Creatinine upon admission 3.2, very close to baseline. Patient was recently hospitalized for R renal papillary necrosis and had renal stent placed. Just prior to this the creatinine peaked at 8.0. Now back to baseline range. Will consult renal regarding HD recommendations. (5) Chronic osteomyelitis Is this a current diagnosis for this admission?: Yes Plan: Osteomyelitis seen on MRI of left foot. Present in the great toe. Patient started on vancomycin and Zosyn. Evaluated by Dr. Lanza today. Appreciate orthopedic surgery recommendations. - Inpatient Certification Based on my medical assessment, after consideration of the patient's comorbidities, presenting symptoms, or acuity I expect that the services needed warrant INPATIENT care.: Yes I certify that my determination is in accordance with my understanding of Medicare's requirements for reasonable and necessary INPATIENT services [42 CFR 412.3e].: Yes Medical Necessity: Need for Pain Control - Plan Summary Plan Summary: Discharge home to [facility]
[2017-05-10] MEDS: NICOTINE 21 MG/24 HR PATCH.TD24 TD SCH (17:39)
[2017-05-11] MEDS: PIPERACILLIN SODIUM/TAZOBACTAM 2.25 GM in NORMAL SALINE 100 ML IV SCH ×4 (02:46→17:08)
[2017-05-11] MEDS: OXYCODONE HCL IR 5 MG TABLET PO PRN ×2 (02:50→13:27)
[2017-05-11] MEDS: LEVOTHYROXINE SODIUM 0.025 MG TABLET PO SCH (05:43)
[2017-05-11 07:21] LABS: HEMATOCRIT 24.6 % (37.9-51.0); MEAN CORPUSCULAR HEMOGLOBIN 30.5 pg (27.0-33.4); MEAN CORPUSCULAR HGB CONC 32.5 g/dL (32.0-36.0); MEAN CORPUSCULAR VOLUME 94 fl (80-97); PLATELET COUNT 145 10^3/uL (150-450); RED BLOOD COUNT 2.62 10^6/uL (4.35-5.55); RED CELL DISTRIBUTION WIDTH 16.6 % (11.5-14.0); WHITE BLOOD COUNT 6.9 10^3/uL (4.0-10.5)
[2017-05-11 07:33] LABS: ANION GAP 10 (5-19); BLOOD UREA NITROGEN 16 mg/dL (7-20); CALCIUM 8.1 mg/dL (8.4-10.2); CARBON DIOXIDE 23 mmol/L (22-30); CHLORIDE 102 mmol/L (98-107); GLUCOSE 84 mg/dL (75-110); MAGNESIUM 1.8 mg/dL (1.6-2.3); PHOSPHORUS 6.2 mg/dL (2.5-4.5); POTASSIUM 3.9 mmol/L (3.6-5.0)
[2017-05-11] MEDS: CLONIDINE HCL 0.2 MG TABLET PO SCH ×2 (09:32→20:56)
[2017-05-11] MEDS: OXYCODONE HCL SR 10 MG TABLET PO SCH ×2 (09:32→20:56)
[2017-05-11] MEDS: LIDOCAINE 5% (700 MG) TRANSDERMAL ADH..PATCH TP SCH (11:34)
--- NOTE | 2017-05-11 14:22 | PDOC PROGRESS REPORT ---
Subjective Progress Note for:: 05/11/17 Subjective:: Goldy Franz is a 67 year old male who presents to the emergency department with left flank pain and left upper quadrant abdominal pain. Patient was recently hospitalized for right renal papillary necrosis and 2 renal stents placed, and was discharged from [facility] on May 07. The patient was transferred back to his half-way and was only there for approximately 6 hours before returning to the emergency department with intractable pain. Patient was taking 4 mg p.o. Dilaudid every 4 hours as needed but this was not enough total relieve his pain. Patient has a past medical history of hypertension, ESRD, GERD, cirrhosis, vitamin D deficiency, PVD, nephrolithiasis, hematuria Patient seen on morning rounds. Sitting up in bed. Patient states he did not sleep well last night and that he is tired, but that his pain is moderately controlled. Much better than when he was originally admitted on 05/08/19 patient states his right flank pain is a 4 out of 10 Reason For Visit: INTRACTABLE PAIN Physical Exam Vital Signs: Temp Pulse Resp BP Pulse Ox 97.7 F 56 L 16 130/62 H 97 05/11/17 11:55 05/11/17 11:55 05/11/17 11:55 05/11/17 11:55 05/11/17 12:15 Pulse Oximeter Continuous Start: 05/08/17 14: 16 Freq: RTQ4 Status: Active Document 05/11/17 12:15 HCR (Rec: 05/11/17 14:12 HCR [email or web address]) Pulse Oximetry Assessment Oxygen Saturation (92-100) 97 Oxygen Delivery Method Room Air Fraction of Inspired Oxygen (FIO2) 21 Equipment Usage Equipment in Use Continuous SpO2 Machine # 2 Intake & Output 05/10/17 05/11/17 05/12/17 06:59 06:59 06:59 Intake Total 1087 785 640 Output Total 0 Balance 1087 785 640 Weight 51.9 kg 51.9 kg General appearance: PRESENT: no acute distress, well-developed, well-nourished Head exam: PRESENT: atraumatic, normocephalic Eye exam: PRESENT: conjunctiva pink Mouth exam: PRESENT: moist Teeth exam: PRESENT: poor dentation Neck exam: PRESENT: full ROM Respiratory exam: PRESENT: chest wall tenderness - Left lower chest wall Cardiovascular exam: PRESENT: +S1, +S2 Pulses: PRESENT: normal radial pulses Vascular exam: PRESENT: pallor GI/Abdominal exam: PRESENT: soft Rectal exam: PRESENT: deferred Extremities exam: PRESENT: full ROM Musculoskeletal exam: PRESENT: full ROM Neurological exam: PRESENT: alert, awake, oriented to person, oriented to place , oriented to time, oriented to situation Psychiatric exam: PRESENT: appropriate affect Results Laboratory Results: 05/11/17 06:49 05/11/17 06:49 05/11/17 05/11/17 06:49 06:49 WBC 6.9 RBC 2.62 L Hgb 8.0 L Hct 24.6 L MCV 94 MCH 30.5 MCHC 32.5 RDW 16.6 H Plt Count 145 L Sodium 135.0 L Potassium 3.9 Chloride 102 Carbon Dioxide 23 Anion Gap 10 BUN 16 Creatinine 4.33 H Est GFR ( Amer) 17 L Est GFR (Non-Af Amer) 14 L Glucose 84 Calcium 8.1 L Phosphorus 6.2 H Magnesium 1.8 Impressions: Limited or Localized CT 05/08/17 06:47 IMPRESSION: 1. Interval placement of right double-J ureteral stent. No hydronephrosis. Bilateral renal calculi identified. 2. Interval development of pneumobilia. This could be related to previous cholecystectomy or recent biliary intervention. 3. Cardiomegaly with coronary artery atherosclerosis. 4. Small amount of ascites. 5. Moderate bilateral pleural effusions with bibasilar airspace opacities possibly related to compressive atelectasis. This exam was performed according to our departmental dose-optimization program, which includes automated exposure control, adjustment of the mA and/or kV according to patient size and/or use of iterative reconstruction technique. Lower Extremity MRI 05/09/17 17:02 IMPRESSION: SOFT TISSUE EDEMA/INFLAMMATION INVOLVING THE GREAT TOE WITH SOFT TISSUE ULCERATION. NO EVIDENCE OF ABSCESS. THERE IS ABNORMAL APPEARANCE OF THE BASE OF THE DISTAL PHALANX WITH MARROW EDEMA AND MEDIAL CORTICAL DESTRUCTION , CONSISTENT WITH OSTEOMYELITIS. RECOMMEND CORRELATION WITH X-RAY. Status: Imported from PACS Assessment & Plan - Diagnosis (1) Intractable pain Is this a current diagnosis for this admission?: Yes Plan: Patient was discharged from [facility] 05/07/2017 following R renal stent placement for renal papillary necrosis. Patient was on a regiment of PRN dilaudid q4hrs at the half-way but this was not controlling his pain. EMS was called to bring patient to hospital for intractable pain. Patient started on scheduled longer-acting oxycontin and PRN immediate release oxycodone. Upon assessment this morning patient states that his pain is much better controlled today than in previous days. Patient states that he is still in pain, rates it a 4 out of 10. Patient states that his pain is tolerable but that he is still uncomfortable when getting out of bed or when the left flank is palpated. Started on lidocaine patch, will further increase OxyContin from 15 mg to 20 mg every 12 hours. (2) DNI (do not intubate) Is this a current diagnosis for this admission?: Yes Plan: Daughter states the patient does not wish to be intubated. He would like CPR and to be chemically coded if needed. (3) Physical deconditioning Is this a current diagnosis for this admission?: Yes Plan: Pt appears to be very thin, daughter states he typically stays in bed most of the time. Patient has very little appetite and typically only asks for medication to relieve his pain. The patient currently resides at [facility]. (4) ESRD on hemodialysis Is this a current diagnosis for this admission?: Yes Plan: Creatinine upon admission 3.2, very close to baseline. Patient was recently hospitalized for R renal papillary necrosis and had renal stent placed. Just prior to this the creatinine peaked at 8.0. Now back to baseline range. Will consult renal regarding HD recommendations. (5) Chronic osteomyelitis Is this a current diagnosis for this admission?: Yes Plan: Osteomyelitis seen on MRI of left foot. Present in the great toe. Patient started on vancomycin and Zosyn. Evaluated by Dr. Lanza yesterday. Appreciate orthopedic surgery recommendations. - Time Time Spent with patient: 15-24 minutes Medications reviewed and adjusted accordingly: Yes Anticipated discharge: SNF Within: within 24 hours - Inpatient Certification Based on my medical assessment, after consideration of the patient's comorbidities, presenting symptoms, or acuity I expect that the services needed warrant INPATIENT care.: Yes I certify that my determination is in accordance with my understanding of Medicare's requirements for reasonable and necessary INPATIENT services [42 CFR 412.3e].: Yes Medical Necessity: Need for Pain Control - Plan Summary Plan Summary: Ultimately, the plan is to get the patient's pain under control and send him back to [facility].
[2017-05-11] MEDS: NICOTINE 21 MG/24 HR PATCH.TD24 TD SCH (17:08)
[2017-05-12] MEDS: PIPERACILLIN SODIUM/TAZOBACTAM 2.25 GM in NORMAL SALINE 100 ML IV SCH ×4 (01:00→17:11)
[2017-05-12] MEDS: VANCOMYCIN HCL 750 MG in DEXTROSE 5%-WATER 250 ML IV SCH (02:07)
[2017-05-12] MEDS: OXYCODONE HCL IR 5 MG TABLET PO PRN ×2 (02:09→06:20)
[2017-05-12] MEDS ORDERED: HEPARIN SOD (PORCINE) 1,000 UNIT/ML 10 ML VIAL IV PRN ×2 (05:00→12:30)
[2017-05-12] MEDS ORDERED: EPOETIN ALFA INJ 20000 UNIT/1 ML VIAL (RENAL) IV PRN (05:00)
[2017-05-12] MEDS ORDERED: NORMAL SALINE 1000 ML 1,000 ML IV PRN (05:00)
[2017-05-12] MEDS ORDERED: ALBUMIN HUMAN 50 ML IV PRN (06:00)
[2017-05-12] MEDS: LEVOTHYROXINE SODIUM 0.025 MG TABLET PO SCH (06:27)
[2017-05-12 06:35] LABS: ABSOLUTE BASOPHILS # (AUTO) 0.1 10^3/uL (0.0-0.2); ABSOLUTE EOSINOPHILS # (AUTO) 0.4 10^3/uL (0.0-0.6); ABSOLUTE LYMPHOCYTES (AUTO) 2.1 10^3/uL (0.5-4.7); ABSOLUTE MONOCYTES (AUTO) 1.4 10^3/uL (0.1-1.4); BASOPHILS % (AUTO) 0.8 % (0-2); HEMATOCRIT 26.8 % (37.9-51.0); HEMOGLOBIN 8.9 g/dL (13.5-17.0); LYMPHOCYTES % (AUTO) 26.1 % (13-45); MEAN CORPUSCULAR HEMOGLOBIN 30.8 pg (27.0-33.4); MEAN CORPUSCULAR VOLUME 93 fl (80-97); MONOCYTES % (AUTO) 17.6 % (3-13); PLATELET COUNT 143 10^3/uL (150-450); RED BLOOD COUNT 2.87 10^6/uL (4.35-5.55); RED CELL DISTRIBUTION WIDTH 16.3 % (11.5-14.0); SEGMENTED NEUTROPHILS % (AUTO) 50.5 % (42-78); TOTAL CELLS COUNTED % (AUTO) 100 %; WHITE BLOOD COUNT 7.9 10^3/uL (4.0-10.5)
[2017-05-12 07:06] LABS: ANION GAP 14 (5-19); BLOOD UREA NITROGEN 19 mg/dL (7-20); CALCIUM 7.9 mg/dL (8.4-10.2); CARBON DIOXIDE 20 mmol/L (22-30); CHLORIDE 102 mmol/L (98-107); GLUCOSE 92 mg/dL (75-110); POTASSIUM 4.1 mmol/L (3.6-5.0); SODIUM 136.2 mmol/L (137-145)
[2017-05-12] MEDS ORDERED: ONDANSETRON HCL INJ/PF 4 MG/2 ML SDV ONE (08:54)
[2017-05-12] MEDS: OXYCODONE HCL SR 10 MG TABLET PO SCH (10:01)
[2017-05-12] MEDS ORDERED: ALBUMIN HUMAN 50 ML IV ONE (10:45)
--- NOTE | 2017-05-12 11:06 | Physician Advisory Note ---
Physician Advisor ProgressNote .: Pursuant to the plan for [facility], I have reviewed the medical record for this patient. Physician Advisor Statement: Please consider documenting explicitly, if you agree: 1. "Anemia of chronic kidney disease" 2. Reasons for keeping pt in hospital 05/09 PM (what concerned about, what monitoring, why couldn't just be seen with daily ED/office visits @ that point) , reasons for adding Zosyn 05/10 & for adding IV albumin on 05/12. Status: Initially appropriate for Obs status, for pain control w/po meds & monitoring for response. However, this Medicare pt has continued to require active adjustments of meds daily to adequately control his pain. Furthermore, after admission, he was found to have evidence of osteomyelitis - this clearly concerned attending, who began on IV abx for that & consulted ortho. - On 05/08, given Dilaudid IV now doses twice, & started on oxycontin 10mg bid + prn oxycodone 5mg. Urology consulted. On 05/09, found to have evidence of osteomyelitis in great toe, started vanc IV , nephrology consulted. Still having flank pain not adequately controlled w/ current regimen. That PM, oxycontin was increased to 15mg bid. Ortho was consulted. On 05/10, pain tolerable but still not adequately controlled. Zosyn IV added for osteomyelitis because . On 05/11, began oxycontin 20mg q12h + added lidocaine patch, as pt still uncomfortable on getting OOB despite previously-ordered tx. On 05/12, giving IV albumin due to . Appropriate for change to Inpatient status if attending documents reasoning/ concerns as above, even if he is felt safe for d/c later today. Thanks! CK
[2017-05-12] MEDS: LIDOCAINE 5% (700 MG) TRANSDERMAL ADH..PATCH TP SCH (14:01)
[2017-05-12] MEDS: CLONIDINE HCL 0.2 MG TABLET PO SCH (14:01)
--- NOTE | 2017-05-12 15:23 | PDOC DISCHARGE SUMMARY ---
General - Admit/Disc Date/PCP Admission Date/Primary Care Provider: 05/12/17 13:38 Discharge Date: 05/12/17 - Discharge Diagnosis (1) Intractable pain Is this a current diagnosis for this admission?: Yes Summary: Acute musculoskeletal left flank pain, unclear etiology, likely related to patient positioning during very recent renal surgery. CT of abdomen and pelvis was normal. Chest wall pain was reproducible with palpation. Patient was admitted to the hospital on May 08 for intractable pain. The patient presented to the emergency department with left flank pain radiating to the left upper quadrant. The patient came from [facility] where he was supposed to be getting 4 mg of Dilaudid p.o. every 4 hours as needed for pain. It was discovered that the [facility] had not been providing Mr. Maguire with his pain medication as scheduled. While inpatient at [facility], the patient was placed on long-acting scheduled OxyContin as well as prn immediate release oxycodone for breakthrough pain. Adjustments were made to his pain regimen and over the course of 4 days and we were able to get his pain under control. (2) DNI (do not intubate) Is this a current diagnosis for this admission?: Yes Summary: According to the patient's daughter the patient does not want CPR nor does he want to be intubated. Chemical code only (3) Physical deconditioning Is this a current diagnosis for this admission?: Yes Summary: Patient is very thin, daughter states that he typically stays in bed or in the recliner most of the time. Patient has very little appetite and typically only asks for medication to relieve pain. Patient was observed eating breakfast lunch and dinner well in the hospital. Hopefully now that his intractable pain is resolved he will regain more of an appetite. (4) ESRD on hemodialysis Is this a current diagnosis for this admission?: Yes Summary: Chronic kidney disease on hemodialysis. Patient's creatinine has remained very close to baseline while inpatient. Patient recently hospitalized for right renal papillary necrosis and had 2 renal stents placed. Just prior to this the creatinine peaked at 8.0. Now back to baseline range. Patient has tolerated his hemodialysis schedule while at [facility] (5) Chronic osteomyelitis Is this a current diagnosis for this admission?: Yes Summary: Chronic osteomyelitis secondary to open wound on left great toe. Osteomyelitis seen on MRI of the left foot. Present in the great toe, started on vancomycin and Zosyn while inpatient. Patient will be discharged on Zyvox for 6 weeks. Will need to follow-up with Dr. Lanza. (6) Pressure ulcer Is this a current diagnosis for this admission?: Yes Summary: Stage I pressure ulcer noted over the coccyx area. According to patient's daughter, this is new since the patient's last hospitalization. Daily ALLEVYN dressing change to area. Patient will need to follow-up with wound care clinic to monitor healing - Additional Information Resuscitation Status: Do Not Intubate Discharge Activity: Activity As Tolerated Prescriptions: Linezolid [Zyvox 600 mg Tablet] 600 mg PO Q12 #84 tablet Oxycodone HCl [Oxy-Ir 5 mg Tablet] 2.5 mg PO Q8HP PRN #30 tablet PRN Reason: Oxycodone HCl [Oxycontin Sr 10 mg Tablet] 20 mg PO Q12 30 Days tab.sr.12h Home Medications: Amlodipine Besylate 10 mg PO SUTUTHSA@1000 09/27/16 Aspirin [Ecotrin 81 mg EC Tablet] 81 mg PO DAILY 09/28/16 Clonidine HCl [Catapres 0.2 mg Tablet] 0.2 mg PO BID 10/16/16 Mirtazapine [Remeron 15 mg Tablet] 15 mg PO QHS 10/16/16 Calcium Carbonate [Os-Carlos Manuel 500 mg Tablet (Oyster-Shell)] 1,250 mg PO BID Ergocalciferol (Vitamin D2) [Ergocal] 5,000 unit PO DAILY 05/08/17 Isosorbide Mononitrate [Imdur 30 mg Tablet.er] 30 mg PO SUTUTHSA@1000 05/08/17 Levothyroxine Sodium [Synthroid 0.025 mg Tablet] 25 mcg PO DAILY 05/08/17 Nicotine [Nicoderm 14 mg/24 Hr Transdermal Patch] 1 patch TD DAILY 05/08/17 Omeprazole 20 mg PO DAILY 05/08/17 Vit B Comp No.3/Folic/C/Biotin [Nephro-Anthony Rx Tablet] 1 each PO DAILY 05/08/17 Linezolid [Zyvox 600 mg Tablet] 600 mg PO Q12 #84 tablet 05/12/17 Oxycodone HCl [Oxy-Ir 5 mg Tablet] 2.5 mg PO Q8HP PRN #30 tablet 05/12/17 Oxycodone HCl [Oxycontin Sr 10 mg Tablet] 20 mg PO Q12 30 Days tab.sr.12h 05/12 History of Present Illness Patient complains of: pain History of Present Illness: DANIEL MAGUIRE JR is a 67 year old male who presents to the emergency department with L flank pain and LUQ abdominal pain. Patient was recently hospitalized for R renal papillary necrosis, and 2 renal stents placed, and was discharged from [facility] on 05/07/2017. The patient was transferred back to his fci ([facility]) and was only there for approximately 6 hours before returning to the emergency department with intractable pain. The patient was taking 4mg PO dilaudid q4hrs PRN but this was not enough to relieve his pain. Patient has a PMH of HTN, ESRD, GERD, Cirrhosis, Vitamin D deficiency, PVD, nephrolithiasis, hematuria Physical Exam Vital Signs: Temp Pulse Resp BP Pulse Ox 97.6 F 73 20 150/62 H 98 05/12/17 07:59 05/12/17 07:59 05/12/17 07:59 05/12/17 07:59 05/12/17 07:59 Intake & Output 05/11/17 05/12/17 05/13/17 06:59 06:59 06:59 Output Total 3100 Balance -3100 General appearance: PRESENT: no acute distress, well-developed, well-nourished Head exam: PRESENT: atraumatic, normocephalic Eye exam: PRESENT: conjunctiva pink Mouth exam: PRESENT: moist Teeth exam: PRESENT: poor dentation Neck exam: PRESENT: full ROM Respiratory exam: PRESENT: clear to auscultation nan Cardiovascular exam: PRESENT: +S1, +S2 Pulses: PRESENT: normal radial pulses Vascular exam: PRESENT: normal capillary refill GI/Abdominal exam: PRESENT: soft Rectal exam: PRESENT: deferred Extremities exam: PRESENT: full ROM Musculoskeletal exam: PRESENT: ambulatory, full ROM Neurological exam: PRESENT: alert, awake Psychiatric exam: PRESENT: appropriate affect Results Impressions: Limited or Localized CT 05/08/17 06:47 IMPRESSION: 1. Interval placement of right double-J ureteral stent. No hydronephrosis. Bilateral renal calculi identified. 2. Interval development of pneumobilia. This could be related to previous cholecystectomy or recent biliary intervention. 3. Cardiomegaly with coronary artery atherosclerosis. 4. Small amount of ascites. 5. Moderate bilateral pleural effusions with bibasilar airspace opacities possibly related to compressive atelectasis. This exam was performed according to our departmental dose-optimization program, which includes automated exposure control, adjustment of the mA and/or kV according to patient size and/or use of iterative reconstruction technique. Lower Extremity MRI 05/09/17 17:02 IMPRESSION: SOFT TISSUE EDEMA/INFLAMMATION INVOLVING THE GREAT TOE WITH SOFT TISSUE ULCERATION. NO EVIDENCE OF ABSCESS. THERE IS ABNORMAL APPEARANCE OF THE BASE OF THE DISTAL PHALANX WITH MARROW EDEMA AND MEDIAL CORTICAL DESTRUCTION , CONSISTENT WITH OSTEOMYELITIS. RECOMMEND CORRELATION WITH X-RAY. Status: Imported from PACS Qualifiers PATEINT BEING DISCHARGED WITH ANY OF THE FOLLOWING DIAGNOSIS?: No Plan Discharge Plan: See above for assessment and plan Time Spent: Greater than 30 Minutes
[2017-05-12] MEDS: NICOTINE 21 MG/24 HR PATCH.TD24 TD SCH (17:20)
[2017-05-12 20:09] VITALS: BP 146/62
--- NOTE | 2017-05-12 21:42 | PDOC PROGRESS REPORT ---
Subjective Progress Note for:: 05/12/17 Subjective:: I saw the patient on dialysis at around 8:45 AM. Patient still complains of some left flank pain and was a little bit nauseated when I saw him on dialysis. Otherwise he is lying in bed and was tolerating dialysis. Patient's pain medication including a long-acting OxyContin was increased in dose by the hospitalist service. Reason For Visit: ESRD Physical Exam Vital Signs: Temp Pulse Resp BP Pulse Ox 98.4 F 80 12 146/62 H 95 05/12/17 20:07 05/12/17 20:07 05/12/17 20:07 05/12/17 20:07 05/12/17 20:07 Intake & Output 05/11/17 05/12/17 05/13/17 06:59 06:59 06:59 Output Total 3100 Balance -3100 Vitals during dialysis: Blood pressure 145/72, heart rate of 64, blood flow rate of 350 mL/min, dialysate flow rate of 800 mL/min. Exam: General appearance: PRESENT: no acute distress, cooperative, well-developed, well-nourished Head exam: PRESENT: atraumatic, normocephalic Eye exam: PRESENT: conjunctiva slightly pale, PERRLA. ABSENT: scleral icterus Neck exam: ABSENT: JVD Respiratory exam: PRESENT: Normal breath sounds. ABSENT: crackles, rales, rhonchi, unlabored, wheezes Cardiovascular exam: PRESENT: Regular rate rhythm -+S1, +S2. ABSENT: diastolic murmur, systolic murmur GI/Abdominal exam: PRESENT: normal bowel sounds, soft. Left flank tenderness ABSENT: guarding, mass Extremities exam: ABSENT: No edema Neurological exam: PRESENT: alert, awake, oriented to person, place and time. Skin exam: PRESENT: dry, warm, Results Impressions: Limited or Localized CT 05/08/17 06:47 IMPRESSION: 1. Interval placement of right double-J ureteral stent. No hydronephrosis. Bilateral renal calculi identified. 2. Interval development of pneumobilia. This could be related to previous cholecystectomy or recent biliary intervention. 3. Cardiomegaly with coronary artery atherosclerosis. 4. Small amount of ascites. 5. Moderate bilateral pleural effusions with bibasilar airspace opacities possibly related to compressive atelectasis. This exam was performed according to our departmental dose-optimization program, which includes automated exposure control, adjustment of the mA and/or kV according to patient size and/or use of iterative reconstruction technique. Lower Extremity MRI 05/09/17 17:02 IMPRESSION: SOFT TISSUE EDEMA/INFLAMMATION INVOLVING THE GREAT TOE WITH SOFT TISSUE ULCERATION. NO EVIDENCE OF ABSCESS. THERE IS ABNORMAL APPEARANCE OF THE BASE OF THE DISTAL PHALANX WITH MARROW EDEMA AND MEDIAL CORTICAL DESTRUCTION , CONSISTENT WITH OSTEOMYELITIS. RECOMMEND CORRELATION WITH X-RAY. Assessment & Plan - Diagnosis (1) ESRD (end stage renal disease) Is this a current diagnosis for this admission?: Yes Plan: We did dialysis today for 3 hours, using the patient's PermCath, with 2 potassium bath, blood flow rate of 350 mL per minute, dialysate flow rate of 800 mL per minute, ultrafiltration 3 L, no heparin and Procrit with 20,000 units during dialysis intravenously. I also ordered 25 g of albumin given during dialysis intravenously. Patient was able to stay on dialysis the whole 3 hours which is actually unusual for him. (2) Acute left flank pain Is this a current diagnosis for this admission?: Yes Plan: There is nothing in the CT scan that can explain his pain. He could either be neuropathic pain, musculoskeletal pain, or a ruptured cyst from the kidneys. Neither of this requires any intervention. Urology was also consulted and no intervention is recommended. Pain medication deferred to primary service. (3) History of ureter stent Is this a current diagnosis for this admission?: No Plan: Recently done at [facility] on 05/04/2017 at the right ureter. (4) Chronic pain Qualifiers: Chronic pain type: chronic pain syndrome Qualified Code(s): G89.4 - Chronic pain syndrome Is this a current diagnosis for this admission?: Yes (5) Hypertension Is this a current diagnosis for this admission?: Yes (6) DNR (do not resuscitate) Is this a current diagnosis for this admission?: Yes - Time Time with patient: 15-25 minutes
== END 2017-05-12 19:45 | DRG 91 ==
LOC: ER 04:05 → INTOOBSV 11:55 → EH 11:55 → OBSVTOIN 11:55 → 4N 05-09 20:16 → OBSVTOIN 05-12 13:38
PROVIDERS: ADMIT Emergency Medicine; ATTEND Emergency Medicine
PROC: 5A1D70Z Performance of Urinary Filtration, Intermittent, Less than 6 Hours Per Day (ICD-10-PCS; principal; 2017-05-09)
PROC: 5A1D70Z Performance of Urinary Filtration, Intermittent, Less than 6 Hours Per Day (ICD-10-PCS; 2017-05-12)
DX: G89.4 Chronic pain syndrome (principal); N18.6 End stage renal disease; M86.672 Other chronic osteomyelitis, left ankle and foot; I13.2 Hypertensive heart and chronic kidney disease with heart failure and with stage 5 chronic kidney disease, or end stage renal disease; I50.30 Unspecified diastolic (congestive) heart failure; E44.0 Moderate protein-calorie malnutrition; Z68.1 Body mass index [BMI] 19.9 or less, adult; L89.151 Pressure ulcer of sacral region, stage 1; Z66 Do not resuscitate; Z99.2 Dependence on renal dialysis; Z79.899 Other long term (current) drug therapy; K21.9 Gastro-esophageal reflux disease without esophagitis; K74.60 Unspecified cirrhosis of liver; E55.9 Vitamin D deficiency, unspecified; I73.9 Peripheral vascular disease, unspecified; I50.9 Heart failure, unspecified; M54.9 Dorsalgia, unspecified; Z85.828 Personal history of other malignant neoplasm of skin; Z87.11 Personal history of peptic ulcer disease; M10.9 Gout, unspecified; F32.9 Major depressive disorder, single episode, unspecified; F41.1 Generalized anxiety disorder; F17.210 Nicotine dependence, cigarettes, uncomplicated; D63.1 Anemia in chronic kidney disease; Z90.49 Acquired absence of other specified parts of digestive tract; Z98.49 Cataract extraction status, unspecified eye; Z82.49 Family history of ischemic heart disease and other diseases of the circulatory system; Z91.15 Patient's noncompliance with renal dialysis; Z80.3 Family history of malignant neoplasm of breast
CPT/HCPCS: 36415; 76380; 80048; 80053; 81001; 82140; 83735; 84100; 85025; 85027; 87040; 87070; 87205; 94762; 96374; 96375; 96376; 99285; G0378; J1170; J1644; J2405; J2543; J3370; J3490; J7040; J7060; P9047; Q4081

== ENCOUNTER 2017-05-27 14:46 | Inpatient (IN) | payer MEDICARE, OTHER ==
--- NOTE | 2017-05-27 15:28 | ER Document Report ---
ED Medical Screen (RME) - General Chief Complaint: Palpitations Stated Complaint: ELEVATED HEART RATE Time Seen by Provider: 05/27/17 15:16 Mode of Arrival: Wheelchair Information source: Patient, Parent Notes: 67-year-old male history of dialysis who was at dialysis today had been noted to be tachycardic. Patient notes he has not been feeling well for her past week has osteomyelitis for which she is on antibiotics I have greeted and performed a rapid initial assessment of this patient. A comprehensive ED assessment and evaluation of the patient, analysis of test results and completion of the medical decision making process will be conducted by additional ED providers. PHYSICAL EXAMINATION: GENERAL: Well-appearing, well-nourished and in no acute distress. HEAD: Atraumatic, normocephalic. EYES: Pupils equal round extraocular movements intact, conjunctiva are normal. ENT: Nares patent NECK: Normal range of motion heart: tachycardia LUNGS: No respiratory distress Musculoskeletal: Normal range of motion NEUROLOGICAL: Normal speech, normal gait. PSYCH: Normal mood, normal affect. SKIN: Warm, Dry, normal turgor, no rashes or lesions noted. TRAVEL OUTSIDE OF THE [place] IN LAST 30 DAYS: No - Related Data Allergies/Adverse Reactions: No Known Allergies Allergy (Verified 05/27/17 14:47) Past Medical History - Social History Frequency of alcohol use: None Drug Abuse: None - Past Medical History Cardiac Medical History: Reports: Hx Congestive Heart Failure, Hx Hypertension Denies: Hx Coronary Artery Disease, Hx DVT, Hx Heart Attack, Hx Hypercholesterolemia, Hx Pulmonary Embolism Pulmonary Medical History: Denies: Hx Asthma, Hx Bronchitis, Hx COPD, Hx Pneumonia, Hx Sleep Apnea Neurological Medical History: Denies: Hx Cerebrovascular Accident, Hx Seizures Endocrine Medical History: Denies: Hx Diabetes Mellitus Type 1, Hx Diabetes Mellitus Type 2, Hx Hyperthyroidism, Hx Hypothyroidism Renal/ Medical History: Reports: Hx End Stage Renal Disease, Hx Hemodialysis, Hx Kidney Stones. Denies: Hx Peritoneal Dialysis - M/W/F Malignancy Medical History: Reports Hx Skin Cancer GI Medical History: Reports: Hx Cirrhosis, Hx Gastroesophageal Reflux Disease, Hx Ulcer Musculoskeltal Medical History: Reports Hx Arthritis, Reports Hx Gout Psychiatric Medical History: Reports: Hx Depression Infectious Medical History: Denies: Hx C-Diff, Hx MRSA Past Surgical History: Reports: Hx Appendectomy, Hx Cholecystectomy, Hx Herniorrhaphy, Hx Orthopedic Surgery - B elbow, R wrist, Hx Vascular Surgery - Perm catheter for dialysis; fistula formation, maturing, for dialysis., Other - Cataract extraction, right ureteral stent - Immunizations Immunizations up to date: No Hx Diphtheria, Pertussis, Tetanus Vaccination: Yes History of Influenza Vaccine for 12/2016 - 05/2017 Season: Yes Influenza Administration Date for 12/2016 - 05/2017 Season: 04/10/16 Physical Exam - Vital signs Vitals: Temp Pulse Resp BP Pulse Ox 98.3 F 120 H 18 133/66 H 93 05/27/17 14:52 05/27/17 14:52 05/27/17 14:52 05/27/17 14:52 05/27/17 14:52 Course - Vital Signs Vital signs: Temp Pulse Resp BP Pulse Ox 98.3 F 120 H 18 133/66 H 93 05/27/17 14:52 05/27/17 14:52 05/27/17 14:52 05/27/17 14:52 05/27/17 14:52
--- NOTE | 2017-05-27 16:18 | RADIOLOGY REPORT (SQ) ---
EXAM DESCRIPTION: CHEST PA/LAT COMPLETED DATE/TIME: 05/27/2017 4:10 pm REASON FOR STUDY: tachycardia, dialysis patient COMPARISON: 09/08/2016 NUMBER OF VIEWS: Two view. TECHNIQUE: Frontal and lateral radiographic views of the chest acquired. LIMITATIONS: None. FINDINGS: LUNGS AND PLEURA: Bilateral pleural effusions, pulmonary vascular congestion and intersti tial edema MEDIASTINUM AND HILAR STRUCTURES: No masses or contour abnormalities. HEART AND VASCULATURE: Heart normal size. No evidence for failure. BONY STRUCTURES: No acute findings. HARDWARE: PermCath on the right with the tip projected over the right atrium. OTHER: No other significant finding. IMPRESSION: Congestive heart failure TECHNICAL DOCUMENTATION: JOB ID: [id number] [employer]- All Rights Reserved Reading location - IP/workstation name: [email or web address]
--- NOTE | 2017-05-27 16:30 | ER Document Report ---
ED General - General Mode of Arrival: Wheelchair Information source: Patient TRAVEL OUTSIDE OF THE [place] IN LAST 30 DAYS: No <ОЛЕГ HORN - Last Filed: 05/27/17 20:51> <NAMITAGERTRUDIS - Last Filed: 05/27/17 23:40> - General Chief Complaint: Palpitations Stated Complaint: ELEVATED HEART RATE Time Seen by Provider: 05/27/17 15:16 Notes: Patient is a 67-year-old male with a history of CHF, HTN, dialysis and osteomyelitis was sent to the emergency department today from dialysis due to being tachycardic. Daughter states the employees at [facility] also noticed the patient was "wobbly" when standing from wheelchair which is abnormal. The patient's technician (Dr. Billy) proceeded to send the patient to the department for these symptoms. Patient further states that he has not been feeling well for the past week. Patients associated symptoms include vomiting and diarrhea. Patient denies any chest pain. Patient is on narcotics and antibiotics. Patient had a ureteral stent placed in on the right side 2 weeks ago and diagnosed with osteomyelitis 1 week ago. (ОЛЕГ HORN) - Related Data Allergies/Adverse Reactions: No Known Allergies Allergy (Verified 05/27/17 14:47) Past Medical History - General Information source: Patient - Social History Smoking Status: Current Every Day Smoker Frequency of alcohol use: None Drug Abuse: None Family History: Hypertension Patient has suicidal ideation: No Patient has homicidal ideation: No - Past Medical History Cardiac Medical History: Reports: Hx Congestive Heart Failure, Hx Hypertension Renal/ Medical History: Reports: Hx End Stage Renal Disease, Hx Hemodialysis, Hx Kidney Stones Malignancy Medical History: Reports Hx Skin Cancer GI Medical History: Reports: Hx Cirrhosis, Hx Gastroesophageal Reflux Disease, Hx Ulcer Musculoskeltal Medical History: Reports Hx Arthritis, Reports Hx Gout Psychiatric Medical History: Reports: Hx Depression Past Surgical History: Reports: Hx Appendectomy, Hx Cholecystectomy, Hx Herniorrhaphy, Hx Orthopedic Surgery - B elbow, R wrist, Hx Vascular Surgery - Perm catheter for dialysis; fistula formation, maturing, for dialysis., Other - Cataract extraction, right ureteral stent - Immunizations Immunizations up to date: No Hx Diphtheria, Pertussis, Tetanus Vaccination: Yes Hx Pneumococcal Vaccination: 12/29/14 <ОЛЕГ HORN - Last Filed: 05/27/17 20:51> Review of Systems - Review of Systems Constitutional: See HPI, Malaise EENT: No symptoms reported Cardiovascular: No symptoms reported Respiratory: No symptoms reported Gastrointestinal: No symptoms reported Genitourinary: No symptoms reported Male Genitourinary: No symptoms reported Musculoskeletal: No symptoms reported Skin: No symptoms reported Hematologic/Lymphatic: No symptoms reported Neurological/Psychological: No symptoms reported -: Yes All other systems reviewed and negative <KORYLUBAKYREE - Last Filed: 05/27/17 20:51> Physical Exam <KORYLUBAKYREE - Last Filed: 05/27/17 20:51> <GERTRUDIS BREAUX - Last Filed: 05/27/17 23:40> - Vital signs Vitals: Temp Pulse Resp BP Pulse Ox 98.3 F 120 H 18 133/66 H 93 05/27/17 14:52 05/27/17 14:52 05/27/17 14:52 05/27/17 14:52 05/27/17 14:52 - Notes Notes: GENERAL: Alert, interacts well. No acute distress. HEAD: Normocephalic, atraumatic. EYES: Pupils equal, round, and reactive to light. Extraocular movements intact. ENT: Oral mucosa moist, tongue midline. NECK: Full range of motion. Supple. Trachea midline. LUNGS: Crackles in the lung bases bilaterally. No respiratory distress. HEART: Systolic murmur. No gallops or rubs. ABDOMEN: Soft, non-tender. Non-distended. Bowel sounds present in all 4 quadrants. EXTREMITIES: Moves all 4 extremities spontaneously. No cyanosis. Chronic skin changes. First and second digit of the right foot contains a chronic wound, well appearing. The first and second digit of the left foot also contains a chronic wound. NEUROLOGICAL: Alert and oriented x3. Normal speech. PSYCH: Normal affect, normal mood. SKIN: Warm, dry, normal turgor. No rashes or lesions noted. . (KORYLUBAKYREE) Course - Laboratory Result Diagrams: 05/27/17 16:15 05/27/17 16:15 <KORYLUBAKYREE - Last Filed: 05/27/17 20:51> - Laboratory Result Diagrams: 05/27/17 16:15 05/27/17 16:15 <LONG,GERTRUDIS H - Last Filed: 05/27/17 23:40> - Re-evaluation Re-evalutation: 05/27/17 18:09 Blood cultures drawn. Rule out bacteremia. Recommend CO troponins for mildly elevated equivocal troponin in the absence of chest pain. (ОЛЕГ HORN) - Vital Signs Vital signs: Temp Pulse Resp BP Pulse Ox 98.3 F 120 H 17 133/66 H 97 05/27/17 14:52 05/27/17 14:52 05/27/17 22:00 05/27/17 14:52 05/27/17 22:00 - Laboratory Laboratory results interpreted by me: 05/27/17 05/27/17 05/27/17 16:15 16:15 16:15 RBC 3.01 L Hgb 8.8 L Hct 27.4 L RDW 16.7 H Plt Count 61 L Monocytes % 1.9 L Creatinine 4.51 H Est GFR ( Amer) 16 L Est GFR (Non-Af Amer) 13 L Lactic Acid 2.9 H Calcium 7.8 L Direct Bilirubin 0.6 H Albumin 3.4 L Discharge - Discharge Admitting Provider: Beto Unit Admitted: Telemetry <ОЛЕГ HORN - Last Filed: 05/27/17 20:51> <GERTRUDIS BREAUX - Last Filed: 05/27/17 23:40> - Discharge Clinical Impression: Lactic acidosis Fatigue Qualifiers: Fatigue type: unspecified Qualified Code(s): R53.83 - Other fatigue Afib Qualifiers: Atrial fibrillation type: unspecified Qualified Code(s): I48.91 - Unspecified atrial fibrillation Condition: Stable Disposition: ADMITTED INPATIENT Scribe Attestation: 05/27/17 23:40 I personally performed the services described documentation, reviewed and edited the documentation which was dictated to describe my presence, and it accurately records my words and actions. (GERTRUDIS BREAUX) Scribe Documentation - Scribe Written by Catherine:: Catherine Kamara, 05/27/2017 16:40 acting as scribe for :: Namita <ОЛЕГ HORN - Last Filed: 05/27/17 20:51>
[2017-05-27 16:41] LABS: VENOUS BLOOD BASE EXCESS 0.8 mmol/L; VENOUS BLOOD HCO3 26.7 mmol/L (20-32); VENOUS BLOOD PCO2 47.3 mmHg (35-63); VENOUS BLOOD PH 7.37 (7.30-7.42)
[2017-05-27 16:50] LABS: INTERNATIONAL RATION (INR) 1.09; PROTHROMBIN TIME 14.9 SEC (11.4-15.4)
[2017-05-27 17:04] LABS: ALANINE AMINOTRANSFERASE 26 U/L (21-72); ALBUMIN 3.4 g/dL (3.5-5.0); ALKALINE PHOSPHATASE 83 U/L (38-126); ANION GAP 17 (5-19); ASPARTATE AMINO TRANSFERASE 53 U/L (17-59); BILIRUBIN,DIRECT 0.6 mg/dL (0.0-0.4); BILIRUBIN,TOTAL 0.6 mg/dL (0.2-1.3); BLOOD UREA NITROGEN 17 mg/dL (7-20); CALCIUM 7.8 mg/dL (8.4-10.2); CARBON DIOXIDE 24 mmol/L (22-30); CHLORIDE 98 mmol/L (98-107); GLUCOSE 92 mg/dL (75-110); POTASSIUM 4.2 mmol/L (3.6-5.0); SODIUM 139.2 mmol/L (137-145); TOTAL PROTEIN 6.5 g/dL (6.3-8.2)
[2017-05-27 17:30] LABS: ABSOLUTE EOSINOPHILS # (AUTO) 0.1 10^3/uL (0.0-0.6); ABSOLUTE LYMPHOCYTES (AUTO) 1.3 10^3/uL (0.5-4.7); ABSOLUTE MONOCYTES (AUTO) 0.1 10^3/uL (0.1-1.4); ABSOLUTE NEUT (AUTO) 4.4 10^3/uL (1.7-8.2); BASOPHILS % (AUTO) 0.7 % (0-2); EOSINOPHILS % (AUTO) 1.4 % (0-6); HEMATOCRIT 27.4 % (37.9-51.0); HEMOGLOBIN 8.8 g/dL (13.5-17.0); LYMPHOCYTES % (AUTO) 22.6 % (13-45); MEAN CORPUSCULAR HEMOGLOBIN 29.4 pg (27.0-33.4); MEAN CORPUSCULAR HGB CONC 32.2 g/dL (32.0-36.0); MEAN CORPUSCULAR VOLUME 91 fl (80-97); MONOCYTES % (AUTO) 1.9 % (3-13); RED BLOOD COUNT 3.01 10^6/uL (4.35-5.55); RED CELL DISTRIBUTION WIDTH 16.7 % (11.5-14.0); SEGMENTED NEUTROPHILS % (AUTO) 73.4 % (42-78); TOTAL CELLS COUNTED % (AUTO) 100 %
[2017-05-27 17:36] LABS: PLATELET COUNT 61 10^3/uL (150-450)
[2017-05-27] MEDS ORDERED: ASPIRIN 81 MG TABLET, CHEWABLE PO ONE (18:09)
[2017-05-27] MEDS ORDERED: ONDANSETRON HCL INJ/PF 4 MG/2 ML SDV IV PRN (18:46)
[2017-05-27] MEDS ORDERED: ACETAMINOPHEN 325 MG TABLET PO PRN (18:46)
--- NOTE | 2017-05-27 18:58 | PDOC H&P ---
History of Present Illness Admission Date/PCP: 05/27/17 18:25 ANA MCMANUS MD Patient complains of: Heart rate History of Present Illness: DANIEL MAGUIRE JR is a 67 year old male resents to the hospital with complaint of fast heart rate. Patient was at dialysis when he was noted to have a fast heart rate. Patient was brought to the emergency room and found to be in A. fib. Patient's heart rate currently at time of my encounter was in the 80s. Patient's daughter was at bedside stated that patient did not want to come the hospital however she had to convince him to come to the hospital. Patient denied any complaints of shortness of breath or nausea vomiting or chest pain. Daughter reports that patient's great toe is healing well without any problems. Past Medical History Cardiac Medical History: Reports: Congestive Heart Failure, Hypertension Denies: Coronary Artery Disease, DVT, Myocardial Infarction, Hyperlipidema, Pulmonary Embolism Pulmonary Medical History: Denies: Asthma, Bronchitis, Chronic Obstructive Pulmonary Disease (COPD), Pneumonia, Sleep Apnea Neurological Medical History: Denies: Seizures Endocrine Medical History: Denies: Diabetes Mellitus Type 1, Diabetes Mellitus Type 2, Hyperthyroidism, Hypothyroidism Renal/ Medical History: Reports: End Stage Renal Disease Malignancy Medical History: Reports: Skin Cancer GI Medical History: Reports: Cirrhosis, Gastroesophageal Reflux Disease Musculoskeltal Medical History: Reports: Arthritis, Gout Psychiatric Medical History: Reports: Depression Hematology: Denies: Anemia Infectious Medical History: Denies: Clostridium Difficile, Methicillin-Resistant Staph Aureus Past Surgical History Past Surgical History: Reports: Appendectomy, Cholecystectomy, Herniorrhaphy, Orthopedic Surgery - B elbow, R wrist, Vascular Surgery - Perm catheter for dialysis; fistula formation, maturing, for dialysis., Other - Cataract extraction, right ureteral stent Social History Information Source: Patient Lives with: Family Smoking Status: Current Every Day Smoker Frequency of Alcohol Use: None Hx Recreational Drug Use: No Drugs: None Hx Prescription Drug Abuse: No - Advance Directive Resuscitation Status: Full Code Family History Family History: Hypertension Parental Family History Reviewed: Yes Children Family History Reviewed: Yes Sibling(s) Family History Reviewed.: Yes Medication/Allergy Allergies/Adverse Reactions: No Known Allergies Allergy (Verified 05/27/17 14:47) Review of Systems Constitutional: ABSENT: chills, fever(s), headache(s), weight gain, weight loss Eyes: ABSENT: visual disturbances Ears: ABSENT: hearing changes Cardiovascular: ABSENT: chest pain, dyspnea on exertion, edema, orthropnea, palpitations Respiratory: ABSENT: cough, hemoptysis Gastrointestinal: ABSENT: abdominal pain, constipation, diarrhea, hematemesis, hematochezia, nausea, vomiting Genitourinary: ABSENT: dysuria, hematuria Musculoskeletal: ABSENT: joint swelling Integumentary: ABSENT: rash, wounds Neurological: ABSENT: abnormal gait, abnormal speech, confusion, dizziness, focal weakness, syncope Psychiatric: ABSENT: anxiety, depression, homidical ideation, suicidal ideation Endocrine: ABSENT: cold intolerance, heat intolerance, polydipsia, polyuria Hematologic/Lymphatic: ABSENT: easy bleeding, easy bruising Physical Exam Vital Signs: Temp Pulse Resp BP Pulse Ox 98.3 F 120 H 18 133/66 H 93 05/27/17 14:52 05/27/17 14:52 05/27/17 14:52 05/27/17 14:52 05/27/17 14:52 General appearance: PRESENT: no acute distress, thin Head exam: PRESENT: atraumatic, normocephalic Eye exam: PRESENT: conjunctiva pink, EOMI. ABSENT: scleral icterus Ear exam: PRESENT: normal external ear exam Mouth exam: PRESENT: moist, tongue midline Neck exam: ABSENT: carotid bruit, JVD, lymphadenopathy, thyromegaly Respiratory exam: PRESENT: clear to auscultation nan. ABSENT: rales, rhonchi, wheezes Cardiovascular exam: PRESENT: RRR. ABSENT: diastolic murmur, rubs, systolic murmur Pulses: PRESENT: normal dorsalis pedis pul Vascular exam: PRESENT: normal capillary refill GI/Abdominal exam: PRESENT: normal bowel sounds, soft. ABSENT: distended, guarding, mass, organolmegaly, rebound, tenderness Rectal exam: PRESENT: deferred Extremities exam: PRESENT: full ROM. ABSENT: calf tenderness, clubbing, pedal edema Neurological exam: PRESENT: alert, awake, oriented to person, oriented to place , oriented to time, oriented to situation, CN II-XII grossly intact. ABSENT: motor sensory deficit Psychiatric exam: PRESENT: appropriate affect, normal mood. ABSENT: homicidal ideation, suicidal ideation Skin exam: PRESENT: dry, intact, warm. ABSENT: cyanosis, rash Results Impressions: Chest X-Ray 05/27/17 15:16 IMPRESSION: Congestive heart failure Assessment & Plan - Diagnosis (1) Afib Qualifiers: Atrial fibrillation type: unspecified Qualified Code(s): I48.91 - Unspecified atrial fibrillation Is this a current diagnosis for this admission?: Yes Plan: Patient currently rate controlled. Home medications have not been reconciled. Will continue home medicines. Will check 2D echo and consult Dr. Ulloa. (2) Lactic acidosis Is this a current diagnosis for this admission?: Yes Plan: Secondary to tachycardia/A. fib. Will check lactic acid in a.m. Patient does not appear septic. (3) Chronic osteomyelitis Is this a current diagnosis for this admission?: Yes Plan: Pt has been on antibiotics. However unsure of what patient's medication regimen is currently. (4) Chronic pain Qualifiers: Is this a current diagnosis for this admission?: Yes Plan: Patient's home medications will need to be reconciled. (5) DNR (do not resuscitate) Is this a current diagnosis for this admission?: Yes - Time Time Spent: 30 to 50 Minutes
--- NOTE | 2017-05-27 20:39 | EKG REPORT ---
SEVERITY:- ABNORMAL ECG - ATRIAL FIBRILLATION VENTRICULAR PREMATURE COMPLEX LOW VOLTAGE IN FRONTAL LEADS PROLONGED QT INTERVAL DIFFUSE NONSPECIFIC ST-T CHANGES : Confirmed by: John Paul Avalos MD 27-May-2017 20:38:59
[2017-05-28] MEDS: MIRTAZAPINE 15 MG TABLET PO SCH ×2 (01:45→21:13)
[2017-05-28] MEDS: OXYCODONE HCL IR 5 MG TABLET PO PRN ×2 (01:46→10:59)
[2017-05-28 05:57] LABS: ALANINE AMINOTRANSFERASE 18 U/L (21-72); ALKALINE PHOSPHATASE 82 U/L (38-126); ANION GAP 16 (5-19); ASPARTATE AMINO TRANSFERASE 31 U/L (17-59); BILIRUBIN,DIRECT 0.3 mg/dL (0.0-0.4); BILIRUBIN,TOTAL 0.3 mg/dL (0.2-1.3); BLOOD UREA NITROGEN 19 mg/dL (7-20); CARBON DIOXIDE 25 mmol/L (22-30); CHLORIDE 99 mmol/L (98-107); CHOLESTEROL 84.71 mg/dL (0-200); GLUCOSE 84 mg/dL (75-110); POTASSIUM 3.7 mmol/L (3.6-5.0); SODIUM 139.5 mmol/L (137-145); TOTAL PROTEIN 5.9 g/dL (6.3-8.2); TRIGLYCERIDES 106 mg/dL (<150)
[2017-05-28 06:08] LABS: DIRECT LDL 33 mg/dL (<100)
[2017-05-28 06:11] LABS: FREE T4 (FREE THYROXINE) 1.85 ng/dL (0.78-2.19)
[2017-05-28] MEDS: LANSOPRAZOLE 30 MG TAB.RAP.DR PO SCH (06:15)
[2017-05-28 06:25] LABS: THYROID STIMULATING HORMONE 1.61 uIU/mL (0.47-4.68)
[2017-05-28 08:21] LABS: HEMATOCRIT 25.9 % (37.9-51.0); HEMOGLOBIN 8.2 g/dL (13.5-17.0); MEAN CORPUSCULAR HEMOGLOBIN 28.8 pg (27.0-33.4); MEAN CORPUSCULAR HGB CONC 31.5 g/dL (32.0-36.0); MEAN CORPUSCULAR VOLUME 91 fl (80-97); RED BLOOD COUNT 2.84 10^6/uL (4.35-5.55); RED CELL DISTRIBUTION WIDTH 16.4 % (11.5-14.0); WHITE BLOOD COUNT 5.5 10^3/uL (4.0-10.5)
[2017-05-28 08:26] LABS: PLATELET COUNT 33 10^3/uL (150-450)
[2017-05-28 08:33] LABS: ABSOLUTE LYMPHOCYTES# (MANUAL) 1.6 10^3/uL (0.5-4.7); ABSOLUTE MONOCYTES # (MANUAL) 0.1 10^3/uL (0.1-1.4); ABSOLUTE NEUTROPHILS# (MANUAL) 3.7 10^3/uL (1.7-8.2); ANISOCYTOSIS 1+; BASOPHILS % (MANUAL) 0 % (0-2); EOSINOPHILS % (MANUAL) 3 % (0-6); HYPOCHROMASIA SLIGHT; LYMPHOCYTES % (MANUAL) 28 % (13-45); MONOCYTES % (MANUAL) 1 % (3-13); OVALOCYTES SLIGHT; POIKILOCYTOSIS SLIGHT; SEGMENTED NEUTROPHILS % (MAN) 67 % (42-78); TOTAL CELLS COUNTED 100
[2017-05-28 08:34] LABS: PLATELET COMMENT DECREASED
[2017-05-28] MEDS: CLONIDINE HCL 0.2 MG TABLET PO SCH ×2 (09:14→21:13)
[2017-05-28] MEDS: CALCIUM CARBONATE 500 MG TABLET PO SCH ×2 (09:15→18:31)
[2017-05-28] MEDS: FOLIC ACID/VITAMIN B COMP W-C CAPSULE PO SCH (09:15)
[2017-05-28] MEDS: LEVOTHYROXINE SODIUM 0.025 MG TABLET PO SCH (09:15)
[2017-05-28] MEDS: AMLODIPINE BESYLATE 10 MG TABLET PO SCH (09:16)
[2017-05-28] MEDS: ISOSORBIDE MONONITRATE 30 MG TAB.ER.24H PO SCH (09:16)
[2017-05-28] MEDS ORDERED: ASPIRIN 81 MG TABLET, CHEWABLE PO SCH (10:00)
--- NOTE | 2017-05-28 12:58 | XCELERA REPORT ---
[address] [address] Transthoracic Echocardiogram Report Name: DANIEL MAGUIRE JR Age: 67 yrs Gender: Male : 1950 Patient Status: Inpatient Patient Location: [address] [place] [address] Study Date: 05/28/2017 09:38 AM Height: 69 in Weight: 118 lb BSA: 1.7 m2 Procedure: A complete two-dimensional transthoracic echocardiogram was performed (2D, M-mode, spectral and color flow Doppler). The study was technically difficult with many images being suboptimal in quality. Reason For Study: A FIB Ordering Physician: JORY ROA Performed By: Almaz Ochoa Interpretation Summary Left ventricular systolic function is borderline reduced. LV EF is 50% Doppler measurements suggest pseudonormalized left ventricular relaxation, which is associated with grade II/IV or mild to moderate diastolic dysfunction There is mild concentric left ventricular hypertrophy. The left ventricle is grossly normal size. Wall motion cannot be accurately commented on, but no definite regional wall motion abnormalities noted. The right ventricular systolic function is normal. The right atrium is mildly dilated. The left atrium is moderately dilated. There is a trace amount of mitral regurgitation There is no mitral valve stenosis. There is mild aortic stenosis There is a peak gradient of 16 mm of Hg. There is a trace amount of aortic regurgitation There is a mild amount of tricuspid regurgitation There is mild to moderate pulmonary hypertension by echo Right ventricular systolic pressure is estimated to be elevated at 40- 50mmHg. The aortic root is not well visualized but is probably normal size. The inferior vena cava appeared normal and decreased < 50% with respiration (RAP 10-15 mmHg) Minimal pericardial effusion. Small left pleural effusion. MMode/2D Measurements & Calculations RVDd: 3.8 cm LVIDd: 4.9 cmFS: 28.5 % Ao root diam: 3.0 cm IVSd: 1.1 cm LVIDs: 3.5 cmEDV(Teich): 112.8 ml LVPWd: 1.0 cmESV(Teich): 51.0 ml Ao root area: 7.0 cm2 EF(Teich): 54.8 % LA dimension: 4.7 cm LVOT diam: 2.0 cm LVOT area: 3.3 cm2 Doppler Measurements & Calculations MV E max eloisa: MV P1/2t max eloisa: Ao V2 max: LV V1 max P.4 cm/sec 124.9 cm/sec 195.5 cm/sec 5.5 mmHg MV A max eloisa: MV P1/2t: 58.8 msec Ao max PG: LV V1 max: 71.7 cm/sec MVA(P1/2t): 3.7 cm2 15.3 mmHg 117.2 cm/sec MV E/A: 1.7 MV dec slope: JOSE(V,D): 2.0 cm2 622.5 cm/sec2 TV V2 max: PA V2 max: 301.3 cm/sec 142.7 cm/sec TV max PG: PA max P.1 mmHg 36.3 mmHg Left Ventricle The left ventricle is grossly normal size. There is mild concentric left ventricular hypertrophy. Left ventricular systolic function is borderline reduced. LV EF is 50%. Doppler measurements suggest pseudonormalized left ventricular relaxation, which is associated with grade II/IV or mild to moderate diastolic dysfunction. Wall motion cannot be accurately commented on, but no definite regional wall motion abnormalities noted. Right Ventricle The right ventricle is grossly normal size. There is normal right ventricular wall thickness. The right ventricular systolic function is normal. Atria The right atrium is mildly dilated. The left atrium is moderately dilated. Interarterial septum not well visualized and not well dopplered. Cannot comment on ASD/PFO presence. Mitral Valve The mitral valve is grossly normal. There is no mitral valve stenosis. There is a trace amount of mitral regurgitation. Aortic Valve The aortic valve is mildly calcified. There is mild aortic stenosis. There is a peak gradient of 16 mm of Hg. There is a trace amount of aortic regurgitation. Tricuspid Valve The tricuspid valve is not well visualized, but is grossly normal. There is no tricuspid stenosis. There is a mild amount of tricuspid regurgitation. There is mild to moderate pulmonary hypertension by echo. Right ventricular systolic pressure is estimated to be elevated at 40-50mmHg. Great Vessels The aortic root is not well visualized but is probably normal size. The inferior vena cava appeared normal and decreased < 50% with respiration (RAP 10-15 mmHg). Effusions Minimal pericardial effusion. Small left pleural effusion. : JORY ROA > Jory Roa
[2017-05-28] MEDS ORDERED: NICOTINE 14 MG/24 HR PATCH.TD24 TOP ONE (13:00)
[2017-05-28] MEDS ORDERED: LINEZOLID 600 MG TABLET PO ONE (13:00)
--- NOTE | 2017-05-28 13:06 | PDOC CONSULTATION ---
Consultation Consult Date: 05/27/17 Attending physician:: SHAKIRA BUSTOS Consult reason:: Atrial fibrillation History of Present Illness Admission Date/PCP: 05/27/17 18:25 ANA MCMANUS MD Patient complains of: Shortness of breath History of Present Illness: DANIEL MAGUIRE JR is a 67 year old male resents to the hospital with complaint of fast heart rate. Patient was at dialysis when he was noted to have a fast heart rate. Patient was brought to the emergency room and found to be in A. fib. Patient's heart rate currently at time of my encounter was in the 80s. Patient's daughter was at bedside stated that patient did not want to come the hospital however she had to convince him to come to the hospital. Patient denied any complaints of shortness of breath or nausea vomiting or chest pain. Daughter reports that patient's great toe is healing well without any problems. Patient on questioning denied any chest pain. He did complain of shortness of breath. He denied any significant heart problems. However he is noted to be a poor historian. Past Medical History Cardiac Medical History: Reports: Congestive Heart Failure, Hypertension Denies: Coronary Artery Disease, DVT, Myocardial Infarction, Hyperlipidema, Pulmonary Embolism Pulmonary Medical History: Denies: Asthma, Bronchitis, Chronic Obstructive Pulmonary Disease (COPD), Pneumonia, Sleep Apnea Neurological Medical History: Denies: Seizures Endocrine Medical History: Denies: Diabetes Mellitus Type 1, Diabetes Mellitus Type 2, Hyperthyroidism, Hypothyroidism Renal/ Medical History: Reports: End Stage Renal Disease Malignancy Medical History: Reports: Skin Cancer GI Medical History: Reports: Cirrhosis, Gastroesophageal Reflux Disease Musculoskeltal Medical History: Reports: Arthritis, Gout Psychiatric Medical History: Reports: Depression Hematology: Denies: Anemia Infectious Medical History: Denies: Clostridium Difficile, Methicillin-Resistant Staph Aureus Past Surgical History Past Surgical History: Reports: Appendectomy, Cholecystectomy, Herniorrhaphy, Orthopedic Surgery - B elbow, R wrist, Vascular Surgery - Perm catheter for dialysis; fistula formation, maturing, for dialysis., Other - Cataract extraction, right ureteral stent Social History Information Source: Patient Lives with: Family Smoking Status: Current Every Day Smoker Frequency of Alcohol Use: None Hx Recreational Drug Use: No Drugs: None Hx Prescription Drug Abuse: No - Advance Directive Resuscitation Status: Full Code Surrogate healthcare decision maker:: Patient's daughter is the surrogate decision-maker Family History Family History: Hypertension Parental Family History Reviewed: Yes Children Family History Reviewed: Yes Sibling(s) Family History Reviewed.: Yes Medication/Allergy Home Medications: Amlodipine Besylate [Norvasc 10 mg Tablet] 10 mg PO SUMOWEFR@1000 05/27/17 Aspirin [Aspirin 81 mg Chewable Tablet] 81 mg PO DAILY 05/27/17 Calcium Carbonate [Os-Carlos Manuel 500 mg Tablet (Oyster-Shell)] 1,250 mg PO BID Clonidine HCl [Catapres 0.2 mg Tablet] 0.2 mg PO Q12 05/27/17 Folic Acid/Vit B Complex and C [Nephro-Anthony Tablet] 1 tab PO DAILY 05/27/17 Isosorbide Mononitrate [Imdur 30 mg Tablet.er] 30 mg PO SUMOWEFR@1000 05/27/17 Levothyroxine Sodium [Synthroid 0.025 mg Tablet] 25 mcg PO DAILY 05/27/17 Mirtazapine [Remeron 15 mg Tablet] 15 mg PO QHS 05/27/17 Metoprolol Succinate [Toprol Xl 25 mg Tab.sr] 25 mg PO Q12 tab.sr.24h 06/07/17 Oxycodone HCl [Oxycontin Sr 10 mg Tablet] 10 mg PO DAILY #5 tab.sr.12h 06/07/17 Allergies/Adverse Reactions: No Known Allergies Allergy (Verified 05/27/17 14:47) Review of Systems Review of Systems: Please see history of present illness and past medical history as wall. Constitutional: No fever or chills reported. Complains of general fatigue and tiredness. Head : No recent chronic headaches, recent head injury. Eyes: No recent eye pain, diplopia, redness, discharge, acute visual changes. Ears: No recent chronic ear pain, acute hearing loss, ear discharge. Oral cavity: No recent ulcerations, bleeding, oral cavity discomfort. Neck: No recent acute neck pain reported. Hematologic: No recent easy bruising or bleeding or hematologic malignancy reported. Lymphatic: No recent lymphatic malignancy, chronic lymphadenopathy reported yet Cardiovascular system review: See history of present illness. Respiratory system review: No recent chronic cough, hemoptysis, blood clots in the lungs reported. Mild Shortness of breath on exertion Gastrointestinal system review: Negative for any recent acute or chronic abdominal pain, hematemesis, melena, recent change in bowel habits. Genitourinary system review: No recent acute or chronic hematuria, flank pain, UTI etc. reported. Patient has end-stage renal disease on dialysis. Skin system review: Negative for any recent abnormal bruising, no rash, no pruritus reported. Neurologic: No prior history of strokes, mini strokes, seizure disorder. Psychologic: No history of major psychosis or major depression reported. Musculoskeletal: Minor aches and pains reported. No acute joint swelling reported. Endocrine: No recent polyuria, polydipsia, recent heat or cold intolerance. Physical Exam Vital Signs: Temp Pulse Resp BP Pulse Ox 98.3 F 120 H 21 H 133/66 H 94 05/27/17 14:52 05/27/17 14:52 05/27/17 19:00 05/27/17 14:52 05/27/17 19:00 Exam: GENERAL: Undernourished and somewhat cachectic but in no acute distress. Alert and oriented x3 HEAD: Atraumatic, normocephalic. EYES: Pupils equal round and reactive to light, extraocular movements intact, sclera anicteric, conjunctiva are normal. ENT: TMs normal, nares patent, oropharynx clear without exudates. Moist mucous membranes. No oral ulcerations or bleeding gums noted NECK: supple without lymphadenopathy. Trachea is central. No cervical or axillary lymphadenopathy noted. Carotids are 2+, JVD WNL LUNGS: Respiration seems nonlabored, no significant accessory muscle action noted. Bibasilar coarse crackles noted and occasional scattered wheezes rales or rhonchi noted. No significant dullness noted on percussion. CHEST: Palpation of the chest wall shows no significant chest wall tenderness. No other significant abnormalities noted. HEART: [place] YEAST W[employer]ER, No PSH, 1/6 SANDRA aortic area, 1/6 robles systolic murmur mitral area, no rubs, no gallops. ABDOMEN: Soft, no significant tenderness appreciated, normoactive bowel sounds. No guarding, no rebound. No rigidity noted . No masses appreciated. EXTREMITIES: Pedal pulses are 1-2+, no calf tenderness noted. No clubbing or cyanosis. Negative pedal edema noted NEUROLOGICAL: Focused neurological exam showed no significant neurologic deficit. Low volume speech, no focal weakness appreciated, but significant generalized weakness noted. PSYCH: Normal mood, normal affect. Judgment and insight within normal limits. SKIN: No significant ecchymosis, skin is noted to be warm. Mild superficial excoriations is noted. MUSCULOSKELETAL EXAM: No significant acute joint swelling noted. Results Laboratory Results: 05/27/17 20:18 Lactic Acid 2.0 EKG Comments: Atrial fibrillation with rapid ventricular response and minor nonspecific T- wave changes noted Impressions: Chest X-Ray 05/27/17 15:16 IMPRESSION: Congestive heart failure Assessment & Plan - Diagnosis (1) Atrial fibrillation with rapid ventricular response Is this a current diagnosis for this admission?: Yes (2) ESRD (end stage renal disease) Is this a current diagnosis for this admission?: Yes (3) Hypertension Is this a current diagnosis for this admission?: Yes (4) Impaired mobility and ADLs Is this a current diagnosis for this admission?: Yes (5) Tobacco abuse Is this a current diagnosis for this admission?: Yes (6) Undernutrition Is this a current diagnosis for this admission?: Yes - Notes Notes: Atrial fibrillation with rapid ventricular response: At this point recommend rate control with beta-mane or rate lowering calcium channel mane. Patient felt a suboptimal candidate for chronic anticoagulation and in view of end-stage renal disease, the only anticoagulant that patient would be a candidate for it would be chronic Coumadin therapy. There is some relative contraindication. Will let quality assurance associate and agricultural science professor make that decision as patient would need to regular follow-up very closely if any chronic anticoagulation is started. End-stage renal disease: Patient on dialysis therapy. Hypertension: Blood pressure is satisfactorily controlled. Impaired mobility and ADLS: Patient will benefit from physical therapy. Tobacco abuse: Patient will benefit from smoking cessation. Undernutrition: Patient noted to be underweight. May consult dietary department. - Time Time Spent: 30 to 50 Minutes - CODE STATUS was discussed, patient remains full code. Surrogate decision-maker unchanged. Multiple medical problems were addressed. More than 50% of the time spent coordinating care, discussing management plans with involved caregivers. Management plans discussed with involved personnels. Medical decision making was of moderate to high complexity , patient's has multiple comorbidities. Medications reviewed and adjusted accordingly: Yes
[2017-05-28] MEDS ORDERED: METOPROLOL SUCCINATE 25 MG TAB.SR.24H PO ONE (14:00)
--- NOTE | 2017-05-28 14:43 | PDOC PROGRESS REPORT ---
Subjective Progress Note for:: 05/28/17 Subjective:: No overnight events. Heart rate improved and denies chest pain or palpitations. Requesting nicotene patch. Feeling tired today. Reason For Visit: ATRIAL FIBRILLATION Physical Exam Vital Signs: Temp Pulse Resp BP Pulse Ox 99.1 F 98 16 148/70 H 99 05/28/17 07:27 05/28/17 07:27 05/28/17 07:27 05/28/17 07:27 05/28/17 07:27 Intake & Output 05/27/17 05/28/17 05/29/17 06:59 06:59 06:59 Intake Total 153 Balance 153 Weight 53.9 kg General appearance: PRESENT: no acute distress, thin, other - resting in bed Head exam: PRESENT: atraumatic Mouth exam: PRESENT: moist Teeth exam: PRESENT: poor dentation Respiratory exam: PRESENT: unlabored Cardiovascular exam: PRESENT: RRR. ABSENT: tachycardia GI/Abdominal exam: PRESENT: soft. ABSENT: tenderness Neurological exam: PRESENT: alert, awake, CN II-XII grossly intact Psychiatric exam: PRESENT: appropriate affect Results Laboratory Results: 05/28/17 07:41 05/28/17 05:16 05/27/17 05/28/17 05/28/17 20:18 05:16 05:16 WBC Cancelled RBC Cancelled Hgb Cancelled Hct Cancelled MCV Cancelled MCH Cancelled MCHC Cancelled RDW Cancelled Plt Count Cancelled Seg Neutrophils % Cancelled Lymphocytes % Cancelled Monocytes % Cancelled Eosinophils % Cancelled Basophils % Cancelled Absolute Neutrophils Cancelled Absolute Lymphocytes Cancelled Absolute Monocytes Cancelled Absolute Eosinophils Cancelled Absolute Basophils Cancelled Sodium 139.5 Potassium 3.7 Chloride 99 Carbon Dioxide 25 Anion Gap 16 BUN 19 Creatinine 5.14 H Est GFR ( Amer) 14 L Est GFR (Non-Af Amer) 11 L Glucose 84 Lactic Acid 2.0 Calcium 8.0 L Total Bilirubin 0.3 AST 31 ALT 18 L Alkaline Phosphatase 82 Total Protein 5.9 L Albumin 3.0 L Triglycerides 106 Cholesterol 84.71 LDL Cholesterol Direct 33 VLDL Cholesterol 21.0 HDL Cholesterol 38 L TSH Free T4 05/28/17 05/28/17 05/28/17 05:16 05:16 06:34 WBC Cancelled RBC Cancelled Hgb Cancelled Hct Cancelled MCV Cancelled MCH Cancelled MCHC Cancelled RDW Cancelled Plt Count Cancelled Seg Neutrophils % Cancelled Lymphocytes % Cancelled Monocytes % Cancelled Eosinophils % Cancelled Basophils % Cancelled Absolute Neutrophils Cancelled Absolute Lymphocytes Cancelled Absolute Monocytes Cancelled Absolute Eosinophils Cancelled Absolute Basophils Cancelled Sodium Potassium Chloride Carbon Dioxide Anion Gap BUN Creatinine Est GFR ( Amer) Est GFR (Non-Af Amer) Glucose Lactic Acid 1.4 Calcium Total Bilirubin AST ALT Alkaline Phosphatase Total Protein Albumin Triglycerides Cholesterol LDL Cholesterol Direct VLDL Cholesterol HDL Cholesterol TSH 1.61 Free T4 1.85 05/28/17 07:41 WBC 5.5 RBC 2.84 L Hgb 8.2 L Hct 25.9 L MCV 91 MCH 28.8 MCHC 31.5 L RDW 16.4 H Plt Count 33 L Seg Neutrophils % Not Reportable Lymphocytes % Not Reportable Monocytes % Not Reportable Eosinophils % Not Reportable Basophils % Not Reportable Absolute Neutrophils Not Reportable Absolute Lymphocytes Not Reportable Absolute Monocytes Not Reportable Absolute Eosinophils Not Reportable Absolute Basophils Not Reportable Sodium Potassium Chloride Carbon Dioxide Anion Gap BUN Creatinine Est GFR ( Amer) Est GFR (Non-Af Amer) Glucose Lactic Acid Calcium Total Bilirubin AST ALT Alkaline Phosphatase Total Protein Albumin Triglycerides Cholesterol LDL Cholesterol Direct VLDL Cholesterol HDL Cholesterol TSH Free T4 Impressions: Chest X-Ray 05/27/17 15:16 IMPRESSION: Congestive heart failure Assessment & Plan - Diagnosis (1) Atrial fibrillation with rapid ventricular response Is this a current diagnosis for this admission?: Yes Plan: Patient in sinus rhythm on exam. Currently rate control and not on beta-mane or CCB - Seen by cardiology this admission - TTE this admission: EF 50%, Grade II/IV diastolic dysfunction, LA enlargement , LVH - Not great candidate for anticoagulation given CKD, will defer to outpatient PCP to determine if AC is appropriate for this patient (2) Lactic acidosis Is this a current diagnosis for this admission?: Yes Plan: Resolved, most recent was 1.4 on this AMs labs (3) Chronic osteomyelitis Is this a current diagnosis for this admission?: Yes Plan: Restarted home Linezolid, no active issues at this time (4) ESRD (end stage renal disease) on dialysis Is this a current diagnosis for this admission?: Yes Plan: Consulted Dr. Ornelas with nephrology to determine HD schedule (5) Thrombocytopenia Is this a current diagnosis for this admission?: Yes Plan: Platelet count 33K today, likely multifactorial. Has been on Linezolid which is myelosuppresive. Also has history of CKD - Will monitor - No active bleeding - Transfuse only if platelets <10 or active bleeding - Time Time Spent with patient: Less than 15 minutes Anticipated discharge: Home with Homehealth, SNF Within: within 48 hours
[2017-05-28] MEDS ORDERED: HEPARIN SOD (PORCINE) 1,000 UNIT/ML 10 ML VIAL IV PRN (16:45)
[2017-05-28] MEDS ORDERED: EPOETIN ALFA INJ 20000 UNIT/1 ML VIAL (RENAL) IV PRN (16:47)
--- NOTE | 2017-05-28 18:04 | PDOC CONSULTATION ---
Consultation Consult Date: 05/28/17 Attending physician:: WEST LAMBERT Consult reason:: I was asked to see this patient to supervise hemodialysis while here in the hospital. History of Present Illness Admission Date/PCP: 05/27/17 18:25 ANA MCMANUS MD History of Present Illness: Patient is a 67-year-old gentleman known to me with history of end- stage renal disease on hemodialysis 3 times a week, liver cirrhosis, nephrolithiasis with recent right ureteral stent placement and removal at [facility], toe osteomyelitis and chronic back pain who was brought to the emergency room yesterday from [facility] after hemodialysis due to tachycardia with irregular rhythm with high suspicion for atrial fibrillation. I actually did see the patient during dialysis yesterday and found that the patient has a heart rate running around 120s. It was irregular. However the patient was asymptomatic and did not complain of any shortness of breath, palpitation or chest pains. After hemodialysis I instructed her [facility] nurse to send the patient to the hospital. Patient initially refused but upon encouragement of his daughter he finally agreed. When he got here the patient is still found to be in atrial fibrillation but but with better rate control. [employer], Dr. Ulloa was also consulted. I am seeing the patient during dialysis treatment currently. He just tells me that he is very sleepy other than that he again denies any chest pains, palpitations no shortness of breath. His heart rate is actually within acceptable limits and is tolerating dialysis without any complaints or problems. Past Medical History Cardiac Medical History: Reports: CHF-Diastolic, Hypertension-primary, Pulmonary Hypertension Neurological Medical History: Reports: Other - Lumbar disc herniation with chronic back pain managed by pain management Renal/ Medical History: Reports: End Stage Renal Disease, Hyperphosphatemia, Proteinuria Malignancy Medical History: Reports: Skin Cancer GI Medical History: Reports: Cirrhosis, Gastroesophageal Reflux Disease, Peptic Ulcer Disease Musculoskeltal Medical History: Reports: Arthritis, Gout Psychiatric Medical History: Reports: Depression, General Anxiety Disorder, Tobacco Dependency Hematology Medical History: Reports Anemia of Chronic Kidney Disease, Reports Iron Deficiency Anemia Past Surgical History Past Surgical History: Reports: Appendectomy, Cholecystectomy, Cystostomy - With insertion of ureteral stent, subsequently removed., Dialysis Access Surgery AVF, Herniorrhaphy, Orthopedic Surgery - B elbow, R wrist, Vascular Surgery - Perm catheter for dialysis; fistula formation, maturing, for dialysis. , Other - Cataract extraction, right ureteral stent Social History Information Source: [facility] Records Lives with: Family Smoking Status: Current Every Day Smoker Frequency of Alcohol Use: None Hx Recreational Drug Use: No Drugs: None Hx Prescription Drug Abuse: No - Advance Directive Resuscitation Status: Full Code Family History Family History: Malignancy - Breast cancer in his mother, Other - Cirrhosis in his father Parental Family History Reviewed: Yes Children Family History Reviewed: Yes Sibling(s) Family History Reviewed.: Unknown Medication/Allergy Home Medications: Amlodipine Besylate [Norvasc 10 mg Tablet] 10 mg PO SUMOWEFR@1000 05/27/17 Aspirin [Aspirin 81 mg Chewable Tablet] 81 mg PO DAILY 05/27/17 Calcium Carbonate [Os-Carlos Manuel 500 mg Tablet (Oyster-Shell)] 1,250 mg PO BID Clonidine HCl [Catapres 0.2 mg Tablet] 0.2 mg PO Q12 05/27/17 Folic Acid/Vit B Complex and C [Nephro-Anthony Tablet] 1 tab PO DAILY 05/27/17 Isosorbide Mononitrate [Imdur 30 mg Tablet.er] 30 mg PO SUMOWEFR@1000 05/27/17 Levothyroxine Sodium [Synthroid 0.025 mg Tablet] 25 mcg PO DAILY 05/27/17 Linezolid [Zyvox 600 mg Tablet] 600 mg PO Q12 05/27/17 Mirtazapine [Remeron 15 mg Tablet] 15 mg PO QHS 05/27/17 Nicotine [Nicoderm 14 mg/24 Hr Transdermal Patch] 1 patch TOP DAILY 05/27/17 Omeprazole 20 mg PO DAILY 05/27/17 Oxycodone HCl [Oxy-Ir 5 mg Tablet] 5 mg PO Q8HP PRN 05/27/17 Oxycodone HCl [Oxycontin] 20 mg PO Q12 05/27/17 Allergies/Adverse Reactions: No Known Allergies Allergy (Verified 05/27/17 14:47) Review of Systems All systems: reviewed and no additional remarkable complaints except as stated Review of Systems: Constitutional: ABSENT: chills, fever(s), headache(s), weight gain, weight loss , feels tired Eyes: ABSENT: visual disturbances Ears: ABSENT: hearing changes Cardiovascular: ABSENT: chest pain, dyspnea on exertion, edema, orthropnea, palpitations Respiratory: ABSENT: cough, dyspnea, hemoptysis Gastrointestinal: ABSENT: abdominal pain, constipation, diarrhea, hematemesis, hematochezia, nausea, vomiting Genitourinary: ABSENT: dysuria, hematuria Musculoskeletal: ABSENT: joint swelling; admits chronic back pain controlled by pain medications Integumentary: ABSENT: rash, wounds Neurological: ABSENT: abnormal gait, abnormal speech, confusion, dizziness, focal weakness, numbness, syncope Psychiatric: ABSENT: anxiety, depression Endocrine: ABSENT: cold intolerance, heat intolerance, polydipsia, polyuria Hematologic/Lymphatic: ABSENT: easy bleeding, easy bruising, lymphadenopathy Physical Exam Vital Signs: Temp Pulse Resp BP Pulse Ox 98.4 F 87 16 122/52 L 100 05/28/17 12:17 05/28/17 12:17 05/28/17 12:17 05/28/17 12:17 05/28/17 12:17 Intake & Output 05/27/17 05/28/17 05/29/17 06:59 06:59 06:59 Intake Total 153 Balance 153 Weight 53.9 kg Vitals during dialysis: Blood pressure 138/66, heart rate of 69, blood flow rate of 350 mL/min, dialysate flow rate of 600 mL/min. Exam: General appearance: no acute distress, sleepy, cooperative, well-developed, well -nourished Head exam: PRESENT: atraumatic, normocephalic Eye exam: PRESENT: Conjunctiva pale pink, EOMI, PERRLA. ABSENT: conjunctival injection, scleral icterus Mouth exam: PRESENT: moist, neck supple, tongue midline Neck exam: PRESENT: full ROM. ABSENT: carotid bruit, JVD, lymphadenopathy, thyromegaly Respiratory exam: PRESENT: clear to auscultation bilaterally. ABSENT: rales, rhonchi, stridor, wheezes Cardiovascular exam: PRESENT: Irregularly irregular rate and rhythm, +S1, +S2. ABSENT: systolic murmur Pulses: PRESENT: normal radial pulses, normal dorsalis pedis pulses GI/Abdominal exam: PRESENT: normal bowel sounds, soft. ABSENT: guarding, mass, tenderness Rectal exam: deferred Extremities exam: PRESENT: full ROM. ABSENT: calf tenderness, pedal edema Musculoskeletal: PRESENT: full ROM. ABSENT: deformity Neurological exam: PRESENT: Asleep but arousable, Oriented to person, Oriented to place, Oriented to time, reflexes normal, CN II-XII grossly intact. ABSENT: motor sensory deficit Psychiatric exam: PRESENT: appropriate affect, normal mood. ABSENT: homicidal ideation, suicidal ideation Skin exam: PRESENT: intact, dry, warm. ABSENT: rash Results Laboratory Results: 05/28/17 07:41 05/28/17 05:16 05/27/17 05/28/17 05/28/17 20:18 05:16 05:16 WBC Cancelled RBC Cancelled Hgb Cancelled Hct Cancelled MCV Cancelled MCH Cancelled MCHC Cancelled RDW Cancelled Plt Count Cancelled Seg Neutrophils % Cancelled Lymphocytes % Cancelled Monocytes % Cancelled Eosinophils % Cancelled Basophils % Cancelled Absolute Neutrophils Cancelled Absolute Lymphocytes Cancelled Absolute Monocytes Cancelled Absolute Eosinophils Cancelled Absolute Basophils Cancelled Sodium 139.5 Potassium 3.7 Chloride 99 Carbon Dioxide 25 Anion Gap 16 BUN 19 Creatinine 5.14 H Est GFR ( Amer) 14 L Est GFR (Non-Af Amer) 11 L Glucose 84 Lactic Acid 2.0 Calcium 8.0 L Total Bilirubin 0.3 AST 31 ALT 18 L Alkaline Phosphatase 82 Total Protein 5.9 L Albumin 3.0 L Triglycerides 106 Cholesterol 84.71 LDL Cholesterol Direct 33 VLDL Cholesterol 21.0 HDL Cholesterol 38 L TSH Free T4 05/28/17 05/28/17 05/28/17 05:16 05:16 06:34 WBC Cancelled RBC Cancelled Hgb Cancelled Hct Cancelled MCV Cancelled MCH Cancelled MCHC Cancelled RDW Cancelled Plt Count Cancelled Seg Neutrophils % Cancelled Lymphocytes % Cancelled Monocytes % Cancelled Eosinophils % Cancelled Basophils % Cancelled Absolute Neutrophils Cancelled Absolute Lymphocytes Cancelled Absolute Monocytes Cancelled Absolute Eosinophils Cancelled Absolute Basophils Cancelled Sodium Potassium Chloride Carbon Dioxide Anion Gap BUN Creatinine Est GFR ( Amer) Est GFR (Non-Af Amer) Glucose Lactic Acid 1.4 Calcium Total Bilirubin AST ALT Alkaline Phosphatase Total Protein Albumin Triglycerides Cholesterol LDL Cholesterol Direct VLDL Cholesterol HDL Cholesterol TSH 1.61 Free T4 1.85 05/28/17 07:41 WBC 5.5 RBC 2.84 L Hgb 8.2 L Hct 25.9 L MCV 91 MCH 28.8 MCHC 31.5 L RDW 16.4 H Plt Count 33 L Seg Neutrophils % Not Reportable Lymphocytes % Not Reportable Monocytes % Not Reportable Eosinophils % Not Reportable Basophils % Not Reportable Absolute Neutrophils Not Reportable Absolute Lymphocytes Not Reportable Absolute Monocytes Not Reportable Absolute Eosinophils Not Reportable Absolute Basophils Not Reportable Sodium Potassium Chloride Carbon Dioxide Anion Gap BUN Creatinine Est GFR ( Amer) Est GFR (Non-Af Amer) Glucose Lactic Acid Calcium Total Bilirubin AST ALT Alkaline Phosphatase Total Protein Albumin Triglycerides Cholesterol LDL Cholesterol Direct VLDL Cholesterol HDL Cholesterol TSH Free T4 Impressions: Chest X-Ray 05/27/17 15:16 IMPRESSION: Congestive heart failure Assessment & Plan - Diagnosis (1) ESRD (end stage renal disease) on dialysis Is this a current diagnosis for this admission?: Yes Plan: We will do dialysis today for 3 hours, using the patient's PermCath, with 3 potassium bath, blood flow rate of 350 mL per minute, dialysate flow rate of 600 mL per minute, ultrafiltration 2 L as tolerated, no heparin and Procrit with 20,000 units during dialysis intravenously. Continue to monitor the patient during dialysis treatment. (2) Anemia in chronic kidney disease (CKD) Is this a current diagnosis for this admission?: Yes Plan: We will give Procrit today during dialysis and as needed and every treatment. (3) Atrial fibrillation with rapid ventricular response Is this a current diagnosis for this admission?: Yes Plan: This is new onset. Cardiology consulted. Agree with either beta-blockers or calcium channel mane. Metoprolol seems to have gotten started today. Patient is not a very good candidate for anticoagulation due to risks of falls. We do not monitor for anticoagulation at [facility]. We will leave this decision between the patient's primary care and kiln mechanic. I think the priority here is rate control at least. (4) Pleural effusion Is this a current diagnosis for this admission?: Yes Plan: Mild could be secondary to mild congestive heart failure and minimal fluid overload due to missing dialysis treatments at times. We will do ultrafiltration here. (5) Chronic osteomyelitis Is this a current diagnosis for this admission?: Yes (6) Chronic pain Qualifiers: Is this a current diagnosis for this admission?: Yes (7) Hypertension Is this a current diagnosis for this admission?: Yes (8) Hypoalbuminemia Is this a current diagnosis for this admission?: Yes - Notes Notes: Thank you very much for this consultation. I will continue to supervise dialysis while here in the hospital. - Time Time Spent: 50 to 70 Minutes
[2017-05-28] MEDS: LINEZOLID 600 MG TABLET PO SCH (21:13)
[2017-05-28] MEDS: METOPROLOL SUCCINATE 25 MG TAB.SR.24H PO SCH (21:13)
[2017-05-29] MEDS: OXYCODONE HCL IR 5 MG TABLET PO PRN ×3 (02:28→23:53)
[2017-05-29 05:43] LABS: HEMATOCRIT 25.6 % (37.9-51.0); HEMOGLOBIN 8.2 g/dL (13.5-17.0); MEAN CORPUSCULAR HEMOGLOBIN 29.1 pg (27.0-33.4); MEAN CORPUSCULAR HGB CONC 31.9 g/dL (32.0-36.0); MEAN CORPUSCULAR VOLUME 91 fl (80-97); WHITE BLOOD COUNT 3.4 10^3/uL (4.0-10.5)
[2017-05-29] MEDS: LANSOPRAZOLE 30 MG TAB.RAP.DR PO SCH (05:46)
[2017-05-29 06:03] LABS: ANION GAP 10 (5-19); BLOOD UREA NITROGEN 10 mg/dL (7-20); CARBON DIOXIDE 27 mmol/L (22-30); CHLORIDE 100 mmol/L (98-107); GLUCOSE 98 mg/dL (75-110); POTASSIUM 3.6 mmol/L (3.6-5.0); SODIUM 136.9 mmol/L (137-145)
[2017-05-29 06:37] LABS: PLATELET COUNT 28 10^3/uL (150-450)
[2017-05-29] MEDS: CALCIUM CARBONATE 500 MG TABLET PO SCH ×2 (09:12→18:00)
[2017-05-29] MEDS: METOPROLOL SUCCINATE 25 MG TAB.SR.24H PO SCH ×2 (09:12→21:03)
[2017-05-29] MEDS: LEVOTHYROXINE SODIUM 0.025 MG TABLET PO SCH (09:13)
[2017-05-29] MEDS: CLONIDINE HCL 0.2 MG TABLET PO SCH ×2 (09:13→21:01)
[2017-05-29] MEDS: FOLIC ACID/VITAMIN B COMP W-C CAPSULE PO SCH (09:13)
--- NOTE | 2017-05-29 10:15 | RADIOLOGY REPORT (SQ) ---
EXAM DESCRIPTION: CT ABD/PELVIS NO ORAL OR IV COMPLETED DATE/TIME: 05/29/2017 9:49 am REASON FOR STUDY: acute left sided ab pain, worsening thrombocytopen I48.0 PAROXYSMAL ATRIAL FIBRIL LATION R73.9 HYPERGLYCEMIA, UNSPECIFIED R07.89 OTHER CHEST PAIN COMPARISON: November 2014 TECHNIQUE: CT scan of the abdomen and pelvis performed without intravenous or oral contrast. Images reviewed with lung, soft tissue, and bone windows. Reconstructed coronal and sagittal MPR images revi ewed. All images stored on PACS. All CT scanners at this facility use dose modulation, iterative reconstruction, and/or weight based d osing when appropriate to reduce radiation dose to as low as reasonably achievable (ALARA). [facility]: Dose Right [facility]: CareDose [facility]: Dose Right [facility]: Teradose 4D [facility]: Smart Pro 3 Games RADIATION DOSE: CT Rad equipment meets quality standard of care and radiation dose reduction techniq ues were employed. CTDIvol: 5.5 mGy. DLP: 288 mGy-cm.mGy. LIMITATIONS: None. FINDINGS: LOWER CHEST: Moderate size bilateral pleural effusions are identified with associated airs pace consolidation which could represent atelectatic changes or pneumonic consolidation. NON-CONTRASTED LIVER, SPLEEN, ADRENALS: Evaluation limited by lack of IV contrast. No identified sign ificant masses. Air is identified within a couple of the intrahepatic biliary radicals presumably re lated to the patient being in post cholecystectomy. PANCREAS: No masses. No peripancreatic inflammatory changes. GALLBLADDER: Status post cholecystectomy RIGHT KIDNEY AND URETER: No suspicious masses. Assessment limited by lack of IV contrast. Multiple renal calcifications are identified which appear to represent a combination of vascular calcification s and nonobstructing renal calculi. No hydronephrosis or hydroureter. LEFT KIDNEY AND URETER: No suspicious masses. Assessment limited by lack of IV contrast. Multiple r enal calcifications are identified which appear to represent a combination of vascular calcifications and nonobstructing renal calculi. No hydronephrosis or hydroureter. AORTA AND RETROPERITONEUM: There is ectasia of the abdominal aorta and iliac vessels with extensive v ascular calcifications. Maximum aortic diameter is 2.5 cm. BOWEL AND PERITONEAL CAVITY: There is thickening of the carrera of the colon at the level of the cecum and proximal ascending colon. The possibility of a neoplastic process cannot be excluded. [place] py may be of value for further evaluation. APPENDIX: Not visualized PELVIS, BLADDER, AND ABDOMINAL WALL:No abnormal masses. No free fluid. A tiny amount of air is ident ified in the bladder of uncertain etiology or significance. Clinical correlation is recommended BONES: No significant findings. OTHER: No other significant finding. IMPRESSION: Multiple bilateral renal calcifications as noted above most consistent with a combinatio n of vascular calcifications and nonobstructing renal calculi. No definite ureteric calculi are iden tified. Thickening of the carrera of the colon at the level of the cecum and proximal ascending colon as noted above the possibility of a neoplastic process cannot be excluded. Colonoscopy may be of meggan ue for further evaluation. Moderate size bilateral pleural effusions with associated airspace consol idation which could represent atelectatic changes or pneumonic consolidations. Other findings as not ed above COMMENT: Quality ID # [id number]: Final reports with documentation of one or more dose reduction techniques (e.g., Automated exposure control, adjustment of the mA and/or kV according to patient size, use of iterative reconstruction technique) TECHNICAL DOCUMENTATION: JOB ID: [id number] [employer]- All Rights Reserved Reading location - IP/workstation name: [id number]
[2017-05-29] MEDS ORDERED: FUROSEMIDE INJ/PF 20 MG/2 ML SDV IV ONE (10:19)
--- NOTE | 2017-05-29 10:29 | PDOC PROGRESS REPORT ---
Subjective Progress Note for:: 05/29/17 Subjective:: This AM complaining of left sided abdominal/flank pain. Feels that pain is not adequately controlled on current regimen. HR remains well controlled. Reason For Visit: ATRIAL FIB,FATIGUE, LACTIC ACIDOSIS Physical Exam Vital Signs: Temp Pulse Resp BP Pulse Ox 98.1 F 75 20 151/60 H 87 L 05/29/17 08:01 05/29/17 08:01 05/29/17 08:01 05/29/17 08:01 05/29/17 08:55 Intake & Output 05/28/17 05/29/17 05/30/17 06:59 06:59 06:59 Intake Total 153 363 Output Total 2200 Balance 153 -1837 Weight 53.9 kg 53.9 kg General appearance: PRESENT: mild distress - secondary to pain, thin, other - Chronically ill appearing Head exam: PRESENT: normocephalic Mouth exam: PRESENT: dry mucosa Respiratory exam: PRESENT: decreased breath sounds - R>L Cardiovascular exam: PRESENT: +S1, +S2. ABSENT: tachycardia GI/Abdominal exam: PRESENT: normal bowel sounds, tenderness - LLL/left flank tenderness to mild palpation. ABSENT: distended Neurological exam: PRESENT: alert, awake, CN II-XII grossly intact Psychiatric exam: PRESENT: anxious Skin exam: ABSENT: petechiae Results Laboratory Results: 05/29/17 05:32 05/29/17 05:32 05/29/17 05/29/17 05:32 05:32 WBC 3.4 L RBC 2.80 L Hgb 8.2 L Hct 25.6 L MCV 91 MCH 29.1 MCHC 31.9 L RDW 17.0 H Plt Count 28 L* Sodium 136.9 L Potassium 3.6 Chloride 100 Carbon Dioxide 27 Anion Gap 10 BUN 10 Creatinine 3.06 H Est GFR ( Amer) 25 L Est GFR (Non-Af Amer) 20 L Glucose 98 Calcium 8.0 L Impressions: Chest X-Ray 05/27/17 15:16 IMPRESSION: Congestive heart failure Abdomen/Pelvis CT 05/29/17 00:00 IMPRESSION: Multiple bilateral renal calcifications as noted above most consistent with a combination of vascular calcifications and nonobstructing renal calculi. No definite ureteric calculi are identified. Thickening of the carrera of the colon at the level of the cecum and proximal ascending colon as noted above the possibility of a neoplastic process cannot be excluded. Colonoscopy may be of value for further evaluation. Moderate size bilateral pleural effusions with associated airspace consolidation which could represent atelectatic changes or pneumonic consolidations. Other findings as noted above Assessment & Plan - Diagnosis (1) Thrombocytopenia Is this a current diagnosis for this admission?: Yes Plan: Platelet count 29K today, likely multifactorial. Has been on Linezolid which is myelosuppresive. Also has history of CKD - Given continued decrease in counts, holding Linezolid and ASA - No active bleeding - Transfuse only if platelets <10 or active bleeding - If counts continue to drop will consult/discuss with hematology for management recommendations (2) Left sided abdominal pain Is this a current diagnosis for this admission?: Yes Plan: New complaint on 05/28. Per discussion with patient's daughter Saumya, this appears to be a subacute process and has been worked up extensively at [facility] and [facility] - Was felt to be secondary to musculoskeletal issues - Given dropping platelets, checked CT abdomen/pelvis without contrast: does not appear to be acute bleed at this time - Increased oxy PO from q8 to q6 hours PRN (3) Atrial fibrillation with rapid ventricular response Is this a current diagnosis for this admission?: Yes Plan: Patient in sinus rhythm on exam. Currently rate controlled, on Toprol XL 25mg PO ER - Cardiology following - TTE this admission: EF 50%, Grade II/IV diastolic dysfunction, LA enlargement , LVH - Not great candidate for anticoagulation given CKD, will defer to outpatient PCP to determine if AC is appropriate for this patient (4) Chronic osteomyelitis Is this a current diagnosis for this admission?: Yes Plan: Followed by Dr. Lanza, has been on Linezolid for toe osteo * 2 weeks - Noted to have drop in platelet count during corresponding period - Will hold Linezolid - Case discussed with Dr. Lanza on 05/29 who feels toe osteo is improved/an indolent process - Definitive treatment is amputation however patient refuses, will re-address - May need to switch to alternate antibiotic with MRSA coverage, will hold off for now as toe appears to be stable (5) Lactic acidosis Is this a current diagnosis for this admission?: Yes Plan: Resolved, most recent was 1.4 on this AMs labs (6) ESRD (end stage renal disease) on dialysis Is this a current diagnosis for this admission?: Yes Plan: Seen by Dr. Ornelas, nephrology - Received dialysis on 05/28 with 3Kbath, blood flow rate of 350 mL per minute, dialysate flow rate of 600 mL per minute, ultrafiltration 2 L as tolerated, no heparin and Procrit with 20,000 units - History of non-compliance - Time Time Spent with patient: 35 or more minutes Within: within 48 hours - Inpatient Certification Based on my medical assessment, after consideration of the patient's comorbidities, presenting symptoms, or acuity I expect that the services needed warrant INPATIENT care.: Yes I certify that my determination is in accordance with my understanding of Medicare's requirements for reasonable and necessary INPATIENT services [42 CFR 412.3e].: Yes Medical Necessity: Need for Pain Control, Risk of Diagnosis Which Will Require Inpatient Eval/Care/Monitoring - New onset thrombocytopenia
[2017-05-29] MEDS: NICOTINE 14 MG/24 HR PATCH.TD24 TOP SCH (10:50)
--- NOTE | 2017-05-29 12:19 | PDOC PROGRESS REPORT ---
Subjective Progress Note for:: 05/28/17 Subjective:: Patient seems to be doing better with gradual improvement. Patient remains quite debilitated. Pt is denying any chest arm or neck discomfort. Patient denying any PND, orthopnea. Patient denied any sustained palpitations, dizziness, syncope, near syncope. Patient denying any fever chills. Patient denying any other significant discomfort. Patient is maintaining sinus rhythm. Patient had spontaneously converted from atrial fibrillation. Review of systems: Rest review of systems negative. Medications: Medications have been reviewed. Reason For Visit: ATRIAL FIB,FATIGUE, LACTIC ACIDOSIS Physical Exam Vital Signs: Temp Pulse Resp BP Pulse Ox 98.4 F 80 16 122/52 L 100 05/28/17 12:17 05/28/17 14:00 05/28/17 12:17 05/28/17 12:17 05/28/17 12:17 Intake & Output 05/27/17 05/28/17 05/29/17 06:59 06:59 06:59 Intake Total 153 0 Balance 153 0 Weight 53.9 kg Exam: GENERAL: Undernourished and in no acute distress. Alert and oriented x3 HEAD: Atraumatic, normocephalic. EYES: Pupils equal round and reactive to light, extraocular movements intact, sclera anicteric, conjunctiva are normal. ENT: TMs normal, nares patent, oropharynx clear without exudates. Moist mucous membranes. No oral ulcerations or bleeding gums noted NECK: supple without lymphadenopathy. Trachea is central. No cervical or axillary lymphadenopathy noted. Carotids are 2+, JVD WNL LUNGS: Respiration seems nonlabored, no significant accessory muscle action noted. Breath sounds clear to auscultation bilaterally and equal noted. No wheezes rales or rhonchi noted. No significant dullness noted on percussion. CHEST: Palpation of the chest wall shows no significant chest wall tenderness. No other significant abnormalities noted. 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 ABDOMEN: Soft, no significant tenderness appreciated, normoactive bowel sounds. No guarding, no rebound. No rigidity noted . No masses appreciated. EXTREMITIES: Pedal pulses are 1-2+, no calf tenderness noted. No clubbing or cyanosis.trace pedal edema noted NEUROLOGICAL: Focused neurological exam showed no significant neurologic deficit. Normal speech, no focal weakness appreciated. PSYCH: Normal mood, normal affect. Judgment and insight within normal limits. SKIN: No significant ecchymosis, rash, ulcerations or signs of pruritus noted. MUSCULOSKELETAL EXAM: No significant joint swelling noted. Results Laboratory Results: 05/28/17 07:41 05/28/17 05:16 05/27/17 05/28/17 05/28/17 20:18 05:16 05:16 WBC Cancelled RBC Cancelled Hgb Cancelled Hct Cancelled MCV Cancelled MCH Cancelled MCHC Cancelled RDW Cancelled Plt Count Cancelled Seg Neutrophils % Cancelled Lymphocytes % Cancelled Monocytes % Cancelled Eosinophils % Cancelled Basophils % Cancelled Absolute Neutrophils Cancelled Absolute Lymphocytes Cancelled Absolute Monocytes Cancelled Absolute Eosinophils Cancelled Absolute Basophils Cancelled Sodium 139.5 Potassium 3.7 Chloride 99 Carbon Dioxide 25 Anion Gap 16 BUN 19 Creatinine 5.14 H Est GFR ( Amer) 14 L Est GFR (Non-Af Amer) 11 L Glucose 84 Lactic Acid 2.0 Calcium 8.0 L Total Bilirubin 0.3 AST 31 ALT 18 L Alkaline Phosphatase 82 Total Protein 5.9 L Albumin 3.0 L Triglycerides 106 Cholesterol 84.71 LDL Cholesterol Direct 33 VLDL Cholesterol 21.0 HDL Cholesterol 38 L TSH Free T4 05/28/17 05/28/17 05/28/17 05:16 05:16 06:34 WBC Cancelled RBC Cancelled Hgb Cancelled Hct Cancelled MCV Cancelled MCH Cancelled MCHC Cancelled RDW Cancelled Plt Count Cancelled Seg Neutrophils % Cancelled Lymphocytes % Cancelled Monocytes % Cancelled Eosinophils % Cancelled Basophils % Cancelled Absolute Neutrophils Cancelled Absolute Lymphocytes Cancelled Absolute Monocytes Cancelled Absolute Eosinophils Cancelled Absolute Basophils Cancelled Sodium Potassium Chloride Carbon Dioxide Anion Gap BUN Creatinine Est GFR ( Amer) Est GFR (Non-Af Amer) Glucose Lactic Acid 1.4 Calcium Total Bilirubin AST ALT Alkaline Phosphatase Total Protein Albumin Triglycerides Cholesterol LDL Cholesterol Direct VLDL Cholesterol HDL Cholesterol TSH 1.61 Free T4 1.85 05/28/17 07:41 WBC 5.5 RBC 2.84 L Hgb 8.2 L Hct 25.9 L MCV 91 MCH 28.8 MCHC 31.5 L RDW 16.4 H Plt Count 33 L Seg Neutrophils % Not Reportable Lymphocytes % Not Reportable Monocytes % Not Reportable Eosinophils % Not Reportable Basophils % Not Reportable Absolute Neutrophils Not Reportable Absolute Lymphocytes Not Reportable Absolute Monocytes Not Reportable Absolute Eosinophils Not Reportable Absolute Basophils Not Reportable Sodium Potassium Chloride Carbon Dioxide Anion Gap BUN Creatinine Est GFR ( Amer) Est GFR (Non-Af Amer) Glucose Lactic Acid Calcium Total Bilirubin AST ALT Alkaline Phosphatase Total Protein Albumin Triglycerides Cholesterol LDL Cholesterol Direct VLDL Cholesterol HDL Cholesterol TSH Free T4 EKG Comments: Telemetry strips shows sinus rhythm with frequent APCs. Impressions: Chest X-Ray 05/27/17 15:16 IMPRESSION: Congestive heart failure Assessment & Plan - Diagnosis (1) Atrial fibrillation with rapid ventricular response Is this a current diagnosis for this admission?: Yes (2) ESRD (end stage renal disease) Is this a current diagnosis for this admission?: Yes (3) Hypertension Is this a current diagnosis for this admission?: Yes (4) Impaired mobility and ADLs Is this a current diagnosis for this admission?: Yes (5) Tobacco abuse Is this a current diagnosis for this admission?: Yes (6) Undernutrition Is this a current diagnosis for this admission?: Yes - Notes Notes: Atrial fibrillation with rapid ventricular response: Patient has converted spontaneously to sinus rhythm but at increased risk of going back into atrial flutter fibrillation. Have therefore placed patient on amiodarone 200 mg p.o. 3 times daily. And written order was entered in the chart. At this point recommend rate control with beta-mane or rate lowering calcium channel mane. Patient felt a suboptimal candidate for chronic anticoagulation and in view of end-stage renal disease, the only anticoagulant that patient would be a candidate for it would be chronic Coumadin therapy. There is some relative contraindication. Will let dehydrator and investigator narcotics make that decision as patient would need to regular follow-up very closely if any chronic anticoagulation is started. End-stage renal disease: Patient on dialysis therapy. Hypertension: Blood pressure is satisfactorily controlled. Impaired mobility and ADLS: Patient will benefit from physical therapy. Tobacco abuse: Patient will benefit from smoking cessation. Undernutrition: Patient noted to be underweight. May consider podiatry consultation. May need to rule out other causes of significant weight loss. - Time Time with patient: Greater than 35 minutes - Anticoagulation discussed with the patient but patient not a good participant. CODE STATUS was discussed, patient remains full code. Surrogate decision-maker unchanged. Multiple medical problems were addressed. More than 50% of the time spent coordinating care, discussing management plans with involved caregivers. Management plans discussed with involved personnels. Medical decision making was of moderate to high complexity, patient's has multiple comorbidities. Medications reviewed and adjusted accordingly: Yes
--- NOTE | 2017-05-29 12:21 | PDOC PROGRESS REPORT ---
Subjective Progress Note for:: 05/29/17 Subjective:: Patient seems to be doing better with gradual improvement. Patient remains quite debilitated. Pt is denying any chest arm or neck discomfort. Patient denying any PND, orthopnea. Patient denied any sustained palpitations, dizziness, syncope, near syncope. Patient denying any fever chills. Patient denying any other significant discomfort. Patient is maintaining sinus rhythm. Patient had spontaneously converted from atrial fibrillation on 05/28/2017. Review of systems: Rest review of systems negative. Medications: Medications have been reviewed. Reason For Visit: ATRIAL FIB,FATIGUE, LACTIC ACIDOSIS Physical Exam Vital Signs: Temp Pulse Resp BP Pulse Ox 98.1 F 75 20 151/60 H 87 L 05/29/17 08:01 05/29/17 08:01 05/29/17 08:01 05/29/17 08:01 05/29/17 08:55 Intake & Output 05/28/17 05/29/17 05/30/17 06:59 06:59 06:59 Intake Total 153 363 Output Total 2200 Balance 153 -1837 Weight 53.9 kg 53.9 kg Exam: GENERAL: Undernourished but in no acute distress. Alert and oriented x3 HEAD: Atraumatic, normocephalic. EYES: Pupils equal round and reactive to light, extraocular movements intact, sclera anicteric, conjunctiva are normal. ENT: TMs normal, nares patent, oropharynx clear without exudates. Moist mucous membranes. No oral ulcerations or bleeding gums noted NECK: supple without lymphadenopathy. Trachea is central. No cervical or axillary lymphadenopathy noted. Carotids are 2+, JVD WNL LUNGS: Respiration seems nonlabored, no significant accessory muscle action noted. Breath sounds clear to auscultation bilaterally and equal noted. No wheezes rales or rhonchi noted. No significant dullness noted on percussion. CHEST: Palpation of the chest wall shows no significant chest wall tenderness. No other significant abnormalities noted. 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 ABDOMEN: Soft, no significant tenderness appreciated, normoactive bowel sounds. No guarding, no rebound. No rigidity noted . No masses appreciated. EXTREMITIES: Pedal pulses are 1-2+, no calf tenderness noted. No clubbing or cyanosis.trace pedal edema noted NEUROLOGICAL: Focused neurological exam showed no significant neurologic deficit. Normal speech, no focal weakness appreciated. PSYCH: Normal mood, normal affect. Judgment and insight within normal limits. SKIN: No significant ecchymosis, rash, ulcerations or signs of pruritus noted. MUSCULOSKELETAL EXAM: No significant joint swelling noted. Results Laboratory Results: 05/29/17 05:32 05/29/17 05:32 05/29/17 05/29/17 05:32 05:32 WBC 3.4 L RBC 2.80 L Hgb 8.2 L Hct 25.6 L MCV 91 MCH 29.1 MCHC 31.9 L RDW 17.0 H Plt Count 28 L* Sodium 136.9 L Potassium 3.6 Chloride 100 Carbon Dioxide 27 Anion Gap 10 BUN 10 Creatinine 3.06 H Est GFR ( Amer) 25 L Est GFR (Non-Af Amer) 20 L Glucose 98 Calcium 8.0 L Impressions: Chest X-Ray 05/27/17 15:16 IMPRESSION: Congestive heart failure Abdomen/Pelvis CT 05/29/17 00:00 IMPRESSION: Multiple bilateral renal calcifications as noted above most consistent with a combination of vascular calcifications and nonobstructing renal calculi. No definite ureteric calculi are identified. Thickening of the carrera of the colon at the level of the cecum and proximal ascending colon as noted above the possibility of a neoplastic process cannot be excluded. Colonoscopy may be of value for further evaluation. Moderate size bilateral pleural effusions with associated airspace consolidation which could represent atelectatic changes or pneumonic consolidations. Other findings as noted above Assessment & Plan - Diagnosis (1) Atrial fibrillation with rapid ventricular response Is this a current diagnosis for this admission?: Yes (2) ESRD (end stage renal disease) Is this a current diagnosis for this admission?: Yes (3) Hypertension Is this a current diagnosis for this admission?: Yes (4) Impaired mobility and ADLs Is this a current diagnosis for this admission?: Yes (5) Tobacco abuse Is this a current diagnosis for this admission?: Yes (6) Undernutrition Is this a current diagnosis for this admission?: Yes (7) Thrombocytopenia Is this a current diagnosis for this admission?: Yes - Notes Notes: Atrial fibrillation with rapid ventricular response: Patient was started on amiodarone yesterday and the handwritten orders were written but somehow this does not get transmitted to pharmacy therefore patient did not receive any amiodarone. This was pointed out to the nursing secretary this morning and she is going to fax that order over to pharmacy. Patient felt a suboptimal candidate for chronic anticoagulation and in view of end-stage renal disease, and history of thrombocytopenia, the only anticoagulant that patient would be a candidate for it would be chronic Coumadin therapy. There is some relative contraindication. Will let signs and displays salesperson and artist consultant make that decision as patient would need to regular follow-up very closely if any chronic anticoagulation is started. End-stage renal disease: Patient on dialysis therapy. Hypertension: Blood pressure is satisfactorily controlled. Impaired mobility and ADLS: Patient will benefit from physical therapy. Tobacco abuse: Patient will benefit from smoking cessation. Undernutrition: Patient noted to be underweight. May consider dietary consultation. May need to rule out other causes of significant weight loss. - Time Time with patient: 15-25 minutes - CODE STATUS was discussed, patient remains full code. Surrogate decision-maker unchanged. Multiple medical problems were addressed. More than 50% of the time spent coordinating care, discussing management plans with involved caregivers. Management plans discussed with involved personnels. Medical decision making was of moderate to high complexity , patient's has multiple comorbidities. Medications reviewed and adjusted accordingly: Yes
[2017-05-29 13:49] LABS: PATH REVIEW PATHOLOGIST REVIEWED
[2017-05-29] MEDS ORDERED: OXYCODONE HCL SR 10 MG TABLET PO ONE (14:15)
[2017-05-29] MEDS: AMIODARONE HCL 200 MG TABLET PO SCH ×2 (14:43→18:00)
[2017-05-29] MEDS: MIRTAZAPINE 15 MG TABLET PO SCH (21:01)
[2017-05-29] MEDS: OXYCODONE HCL SR 10 MG TABLET PO SCH (21:02)
[2017-05-30] MEDS ORDERED: NORMAL SALINE 1000 ML 1,000 ML IV PRN (05:00)
[2017-05-30] MEDS ORDERED: EPOETIN ALFA INJ 20000 UNIT/1 ML VIAL (RENAL) IV PRN (05:00)
[2017-05-30] MEDS ORDERED: HEPARIN SOD (PORCINE) 1,000 UNIT/ML 10 ML VIAL IV PRN (05:00)
[2017-05-30] MEDS: LEVOTHYROXINE SODIUM 0.025 MG TABLET PO SCH (05:13)
[2017-05-30] MEDS: LANSOPRAZOLE 30 MG TAB.RAP.DR PO SCH (05:13)
[2017-05-30 07:39] LABS: HEMATOCRIT 25.9 % (37.9-51.0); HEMOGLOBIN 8.3 g/dL (13.5-17.0); MEAN CORPUSCULAR HGB CONC 31.9 g/dL (32.0-36.0); MEAN CORPUSCULAR VOLUME 91 fl (80-97); RED BLOOD COUNT 2.84 10^6/uL (4.35-5.55); RED CELL DISTRIBUTION WIDTH 16.9 % (11.5-14.0); WHITE BLOOD COUNT 4.2 10^3/uL (4.0-10.5)
[2017-05-30 07:50] LABS: BLOOD UREA NITROGEN 17 mg/dL (7-20); CALCIUM 7.9 mg/dL (8.4-10.2); CARBON DIOXIDE 26 mmol/L (22-30); CHLORIDE 99 mmol/L (98-107); GLUCOSE 95 mg/dL (75-110); POTASSIUM 3.5 mmol/L (3.6-5.0); SODIUM 135.1 mmol/L (137-145)
[2017-05-30 07:51] LABS: ANION GAP 10 (5-19)
[2017-05-30 08:15] LABS: PLATELET COUNT 25 10^3/uL (150-450)
[2017-05-30] MEDS: NICOTINE 14 MG/24 HR PATCH.TD24 TOP SCH (10:23)
[2017-05-30] MEDS: AMLODIPINE BESYLATE 10 MG TABLET PO SCH (10:23)
[2017-05-30] MEDS: ISOSORBIDE MONONITRATE 30 MG TAB.ER.24H PO SCH (10:23)
[2017-05-30] MEDS: METOPROLOL SUCCINATE 25 MG TAB.SR.24H PO SCH ×2 (10:24→22:28)
[2017-05-30] MEDS: CLONIDINE HCL 0.2 MG TABLET PO SCH ×2 (10:24→22:28)
[2017-05-30] MEDS: AMIODARONE HCL 200 MG TABLET PO SCH (10:24)
[2017-05-30] MEDS: OXYCODONE HCL SR 10 MG TABLET PO SCH ×2 (10:27→22:27)
--- NOTE | 2017-05-30 11:37 | PDOC PROGRESS REPORT ---
Subjective Progress Note for:: 05/30/17 Subjective:: Patient seems to be doing better with gradual improvement. Patient remains quite debilitated. Pt is denying any chest arm or neck discomfort. Patient denying any PND, orthopnea. Patient denied any sustained palpitations, dizziness, syncope, near syncope. Patient denying any fever chills. Patient denying any other significant discomfort. Patient had some abdominal pain yesterday but today no longer complaining of it. Patient is maintaining sinus rhythm. Patient had spontaneously converted from atrial fibrillation on 05/28/2017. Review of systems: Rest review of systems negative. Medications: Medications have been reviewed. Reason For Visit: ATRIAL FIB,FATIGUE, LACTIC ACIDOSIS Physical Exam Vital Signs: Temp Pulse Resp BP Pulse Ox 97.7 F 58 L 16 142/53 H 91 L 05/30/17 08:30 05/30/17 08:30 05/30/17 08:30 05/30/17 08:30 05/30/17 08:30 Intake & Output 05/29/17 05/30/17 05/31/17 06:59 06:59 06:59 Intake Total 363 517 Output Total 2200 0 Balance -1837 517 Weight 53.9 kg 54.4 kg Exam: GENERAL: Under-nourished and in no acute distress. Alert and oriented x3 HEAD: Atraumatic, normocephalic. EYES: Pupils equal round and reactive to light, extraocular movements intact, sclera anicteric, conjunctiva are normal. ENT: TMs normal, nares patent, oropharynx clear without exudates. Moist mucous membranes. No oral ulcerations or bleeding gums noted NECK: supple without lymphadenopathy. Trachea is central. No cervical or axillary lymphadenopathy noted. Carotids are 2+, JVD WNL LUNGS: Respiration seems nonlabored, no significant accessory muscle action noted. Bibasilar fine crackles and mild wheezing noted. CHEST: Palpation of the chest wall shows no significant chest wall tenderness. No other significant abnormalities noted. 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 ABDOMEN: Soft, no significant tenderness appreciated, normoactive bowel sounds. No guarding, no rebound. No rigidity noted . No masses appreciated. EXTREMITIES: Pedal pulses are 1-2+, no calf tenderness noted. No clubbing or cyanosis.trace to 1+ pedal edema noted NEUROLOGICAL: Focused neurological exam showed no significant neurologic deficit. Normal speech, no focal weakness appreciated. PSYCH: Normal mood, normal affect. Judgment and insight within normal limits. SKIN: No significant ecchymosis, rash, ulcerations or signs of pruritus noted. MUSCULOSKELETAL EXAM: No significant joint swelling noted. Results Laboratory Results: 05/30/17 07:27 05/30/17 07:27 05/30/17 05/30/17 07:27 07:27 WBC 4.2 RBC 2.84 L Hgb 8.3 L Hct 25.9 L MCV 91 MCH 29.0 MCHC 31.9 L RDW 16.9 H Plt Count 25 L* Sodium 135.1 L Potassium 3.5 L Chloride 99 Carbon Dioxide 26 Anion Gap 10 BUN 17 Creatinine 4.14 H Est GFR ( Amer) 17 L Est GFR (Non-Af Amer) 14 L Glucose 95 Calcium 7.9 L Impressions: Chest X-Ray 05/27/17 15:16 IMPRESSION: Congestive heart failure Abdomen/Pelvis CT 05/29/17 00:00 IMPRESSION: Multiple bilateral renal calcifications as noted above most consistent with a combination of vascular calcifications and nonobstructing renal calculi. No definite ureteric calculi are identified. Thickening of the carrera of the colon at the level of the cecum and proximal ascending colon as noted above the possibility of a neoplastic process cannot be excluded. Colonoscopy may be of value for further evaluation. Moderate size bilateral pleural effusions with associated airspace consolidation which could represent atelectatic changes or pneumonic consolidations. Other findings as noted above Assessment & Plan - Diagnosis (1) Atrial fibrillation with rapid ventricular response Is this a current diagnosis for this admission?: Yes (2) ESRD (end stage renal disease) Is this a current diagnosis for this admission?: Yes (3) Hypertension Is this a current diagnosis for this admission?: Yes (4) Impaired mobility and ADLs Is this a current diagnosis for this admission?: Yes (5) Tobacco abuse Is this a current diagnosis for this admission?: Yes (6) Undernutrition Is this a current diagnosis for this admission?: Yes (7) Thrombocytopenia Is this a current diagnosis for this admission?: Yes - Notes Notes: Atrial fibrillation with rapid ventricular response: It seems patient was never started on amiodarone. In spite of that patient has maintained sinus rhythm. I do not feel it is in the longer needed to start patient on amiodarone unless there is recurrence of atrial fibrillation. Patient felt a suboptimal candidate for chronic anticoagulation and in view of end-stage renal disease, the only anticoagulant that patient would be a candidate for it would be chronic Coumadin therapy. There is some relative contraindication. Will let motion picture camera lens technician and irrigation engineer make that decision as patient would need to regular follow-up very closely if any chronic anticoagulation is started. End-stage renal disease: Patient on dialysis therapy. Hypertension: Blood pressure is satisfactorily controlled. Impaired mobility and ADLS: Patient will benefit from physical therapy. Tobacco abuse: Patient will benefit from smoking cessation. Undernutrition: Patient noted to be underweight. May consider dietary consultation. May need to rule out other causes of significant weight loss. - Time Time with patient: 15-25 minutes Medications reviewed and adjusted accordingly: Yes
[2017-05-30 11:50] LABS: ABSOLUTE LYMPHOCYTES# (MANUAL) 1.8 10^3/uL (0.5-4.7); ABSOLUTE MONOCYTES # (MANUAL) 0.2 10^3/uL (0.1-1.4); ABSOLUTE NEUTROPHILS# (MANUAL) 2.1 10^3/uL (1.7-8.2); BASOPHILS % (MANUAL) 0 % (0-2); EOSINOPHILS % (MANUAL) 2 % (0-6); LYMPHOCYTES % (MANUAL) 44 % (13-45); MONOCYTES % (MANUAL) 4 % (3-13); SEGMENTED NEUTROPHILS % (MAN) 50 % (42-78); TOTAL CELLS COUNTED 100
[2017-05-30 11:52] LABS: ANISOCYTOSIS 1+; OVALOCYTES SLIGHT; PLATELET COMMENT DECREASED; POIKILOCYTOSIS SLIGHT; SCHISTOCYTES SLIGHT
--- NOTE | 2017-05-30 13:52 | PDOC PROGRESS REPORT ---
Subjective Progress Note for:: 05/30/17 Subjective:: I am seeing the patient during initiation of hemodialysis this afternoon. He is quite lethargic and tells me he is just very sleepy. Other than that he indicated that he does not have any chest pains, shortness of breath and even denies having pain in his left flank area. His blood pressure is in the low side is initiation of dialysis. Reason For Visit: ATRIAL FIB,FATIGUE, ESRD Physical Exam Vital Signs: Temp Pulse Resp BP Pulse Ox 97.5 F 57 L 16 111/49 L 100 05/30/17 12:00 05/30/17 12:00 05/30/17 12:00 05/30/17 12:00 05/30/17 12:00 Intake & Output 05/29/17 05/30/17 05/31/17 06:59 06:59 06:59 Intake Total 363 517 Output Total 2200 0 Balance -1837 517 Weight 53.9 kg 54.4 kg Vitals and initiation of dialysis: Blood pressure 114/54, heart rate of 60, blood flow rate of 350 mL/min, dialysate flow rate of 600 mL/min. Exam: General appearance: PRESENT: no acute distress, cooperative, very thin Head exam: PRESENT: atraumatic, normocephalic Eye exam: PRESENT: conjunctiva pale, PERRLA. ABSENT: scleral icterus Neck exam: ABSENT: JVD Respiratory exam: PRESENT: Diminished breath sounds. ABSENT: crackles, rales, rhonchi, unlabored, wheezes Cardiovascular exam: PRESENT: Regular rate rhythm -+S1, +S2. ABSENT: diastolic murmur, systolic murmur GI/Abdominal exam: PRESENT: normal bowel sounds, soft. ABSENT: guarding, mass, tenderness Extremities exam: ABSENT: No edema Neurological exam: PRESENT: Somnolent but arousable, oriented to person, place and time. Skin exam: PRESENT: dry, warm, Results Laboratory Results: 05/30/17 07:27 05/30/17 07:27 05/30/17 05/30/17 07:27 07:27 WBC 4.2 RBC 2.84 L Hgb 8.3 L Hct 25.9 L MCV 91 MCH 29.0 MCHC 31.9 L RDW 16.9 H Plt Count 25 L* Seg Neutrophils % Not Reportable Lymphocytes % Not Reportable Monocytes % Not Reportable Eosinophils % Not Reportable Basophils % Not Reportable Absolute Neutrophils Not Reportable Absolute Lymphocytes Not Reportable Absolute Monocytes Not Reportable Absolute Eosinophils Not Reportable Absolute Basophils Not Reportable Sodium 135.1 L Potassium 3.5 L Chloride 99 Carbon Dioxide 26 Anion Gap 10 BUN 17 Creatinine 4.14 H Est GFR ( Amer) 17 L Est GFR (Non-Af Amer) 14 L Glucose 95 Calcium 7.9 L Impressions: Chest X-Ray 05/27/17 15:16 IMPRESSION: Congestive heart failure Abdomen/Pelvis CT 05/29/17 00:00 IMPRESSION: Multiple bilateral renal calcifications as noted above most consistent with a combination of vascular calcifications and nonobstructing renal calculi. No definite ureteric calculi are identified. Thickening of the carrera of the colon at the level of the cecum and proximal ascending colon as noted above the possibility of a neoplastic process cannot be excluded. Colonoscopy may be of value for further evaluation. Moderate size bilateral pleural effusions with associated airspace consolidation which could represent atelectatic changes or pneumonic consolidations. Other findings as noted above Assessment & Plan - Diagnosis (1) ESRD (end stage renal disease) on dialysis Is this a current diagnosis for this admission?: Yes Plan: We will do dialysis today for 3 hours, using the patient's PermCath, with 3 potassium bath, blood flow rate of 350 mL per minute, dialysate flow rate of 6 mL per minute, ultrafiltration 2-3 L as tolerated, no heparin and Procrit with 20,000 units during dialysis intravenously. He will be monitored throughout dialysis by our dialysis nurse. (2) Anemia in chronic kidney disease (CKD) Is this a current diagnosis for this admission?: Yes Plan: We will give Procrit today during dialysis and as needed and every treatment. (3) Atrial fibrillation with rapid ventricular response Is this a current diagnosis for this admission?: Yes Plan: This is resolved spontaneously now to normal sinus rhythm. Rate is controlled. He was initially started on amiodarone but currently it seems like it was discontinued. He is not a good candidate for anticoagulation due to risks of falls. (4) Pleural effusion Is this a current diagnosis for this admission?: Yes Plan: Moderate and bilateral on CT scan which could be secondary to mild congestive heart failure and minimal fluid overload due to missing dialysis treatments at times. We will do ultrafiltration here. (5) Chronic osteomyelitis Is this a current diagnosis for this admission?: Yes (6) Chronic pain Qualifiers: Is this a current diagnosis for this admission?: Yes (7) Hypertension Is this a current diagnosis for this admission?: Yes Plan: Blood pressure medications including clonidine and amlodipine should be held prior to dialysis treatment. (8) Hypoalbuminemia Is this a current diagnosis for this admission?: Yes - Time Time with patient: 15-25 minutes
--- NOTE | 2017-05-30 16:24 | PDOC PROGRESS REPORT ---
Subjective Progress Note for:: 05/30/17 Subjective:: Feeling better this AM when examined. Flank pain is decreased today. Appetite improved. Pain better controlled. Amenable to having d/w Dr. Lanza regarding right toe amputation. Denies bleeding or bruising given low platelet count. Per discussion with patient's daughter, Saumya, was more sedated when she saw him this afternoon. Reason For Visit: ATRIAL FIB,FATIGUE, LACTIC ACIDOSIS Physical Exam Vital Signs: Temp Pulse Resp BP Pulse Ox 97.5 F 57 L 16 111/49 L 100 05/30/17 12:00 05/30/17 12:00 05/30/17 12:00 05/30/17 12:00 05/30/17 12:00 Intake & Output 05/29/17 05/30/17 05/31/17 06:59 06:59 06:59 Intake Total 363 517 Output Total 2200 0 Balance -1837 517 Weight 53.9 kg 54.4 kg General appearance: PRESENT: no acute distress - Ill appearing, sitting up in bed eating breakfast, thin, other Head exam: PRESENT: normocephalic Mouth exam: PRESENT: moist Respiratory exam: PRESENT: decreased breath sounds, unlabored - On NC Cardiovascular exam: PRESENT: RRR, +S1, +S2. ABSENT: tachycardia GI/Abdominal exam: PRESENT: soft, tenderness - Flank pain improved Neurological exam: PRESENT: alert, awake, CN II-XII grossly intact. ABSENT: aphasic Psychiatric exam: PRESENT: appropriate affect Results Laboratory Results: 05/30/17 07:27 05/30/17 07:27 05/30/17 05/30/17 07:27 07:27 WBC 4.2 RBC 2.84 L Hgb 8.3 L Hct 25.9 L MCV 91 MCH 29.0 MCHC 31.9 L RDW 16.9 H Plt Count 25 L* Seg Neutrophils % Not Reportable Lymphocytes % Not Reportable Monocytes % Not Reportable Eosinophils % Not Reportable Basophils % Not Reportable Absolute Neutrophils Not Reportable Absolute Lymphocytes Not Reportable Absolute Monocytes Not Reportable Absolute Eosinophils Not Reportable Absolute Basophils Not Reportable Sodium 135.1 L Potassium 3.5 L Chloride 99 Carbon Dioxide 26 Anion Gap 10 BUN 17 Creatinine 4.14 H Est GFR ( Amer) 17 L Est GFR (Non-Af Amer) 14 L Glucose 95 Calcium 7.9 L Impressions: Chest X-Ray 05/27/17 15:16 IMPRESSION: Congestive heart failure Abdomen/Pelvis CT 05/29/17 00:00 IMPRESSION: Multiple bilateral renal calcifications as noted above most consistent with a combination of vascular calcifications and nonobstructing renal calculi. No definite ureteric calculi are identified. Thickening of the carrera of the colon at the level of the cecum and proximal ascending colon as noted above the possibility of a neoplastic process cannot be excluded. Colonoscopy may be of value for further evaluation. Moderate size bilateral pleural effusions with associated airspace consolidation which could represent atelectatic changes or pneumonic consolidations. Other findings as noted above Assessment & Plan - Diagnosis (1) Thrombocytopenia Is this a current diagnosis for this admission?: Yes Plan: Platelet count 25K today, likely multifactorial. Has been on Linezolid which is myelosuppresive. Also has history of CKD. Differential included medication related vs. ITP - Given continued decrease in counts, holding Linezolid and ASA since 05/28 - No active bleeding or bruising - Peripheral blood smear reviewed and with rare schistocytes making TTP less likely - Discussed case with Dr. Porter (hematology) - Will give 3 day course of Prednisone (1mg/kg daily). Per discussion with daughter, had reaction with fluid overload previously while on steroids --> monitor closely - Transfuse only if platelets <10 or active bleeding - If counts continue to drop, will formally consult/discuss with hematology for management recommendations (2) Left sided abdominal pain Is this a current diagnosis for this admission?: Yes Plan: New complaint on 05/28. Per discussion with patient's daughter Saumya, this appears to be a subacute process and has been worked up extensively at [facility] and [facility] - Was felt to be secondary to musculoskeletal issues - CT abdomen/pelvis without contrast: no acute bleed, noted to have multiple b/ l renal calcification, no ureteric calculi. - Pain control - Has been on home Oxycontin 20mg BID, will decreased on 05/30 to 10mg BID due to increased somnulence - Continue Oxy 5mg PO 6 hours PRN (3) Atrial fibrillation with rapid ventricular response Is this a current diagnosis for this admission?: Yes Plan: Patient in sinus rhythm on exam. Currently rate controlled, on Toprol XL 25mg PO ER - Cardiology following - TTE this admission: EF 50%, Grade II/IV diastolic dysfunction, LA enlargement , LVH - Patient was started on Amio by cardiology however I did not feel this was needed and discontinued on 05/30 - Not great candidate for anticoagulation given CKD, will defer to outpatient PCP to determine if AC is appropriate for this patient (4) Chronic osteomyelitis Is this a current diagnosis for this admission?: Yes Plan: Followed by Dr. Lanza, has been on Linezolid for toe osteo * 2 weeks - Noted to have drop in platelet count during corresponding period, continue holding Linezolid - Case discussed with Dr. Lanza on 05/29 who feels toe osteo is improved/an indolent process - Re-addressed on 05/30 that definitive treatment is amputation ---> pt is amenable to surgery. Will need to discuss with Dr. Lanza. This can be done either as inpatient or outpatient, however not urgent as toe is stable - May need to switch to alternate antibiotic with MRSA coverage, will hold off for now as toe appears to be stable (5) Lactic acidosis Is this a current diagnosis for this admission?: Yes Plan: Resolved, most recent was 1.4 on this AMs labs (6) ESRD (end stage renal disease) on dialysis Is this a current diagnosis for this admission?: Yes Plan: Seen by Dr. Ornelas, nephrology - Received dialysis on 05/28, next today 05/30 - Has known pleural effusion noted on admission CXR and CT A/P --> hopefully will improve with UF from HD - History of non-compliance - Time Time Spent with patient: 35 or more minutes Anticipated discharge: SNF Within: within 48 hours
[2017-05-30] MEDS: PREDNISONE 20 MG TABLET PO SCH (17:50)
[2017-05-30] MEDS: CALCIUM CARBONATE 500 MG TABLET PO SCH ×2 (17:51→18:02)
[2017-05-30] MEDS: FOLIC ACID/VITAMIN B COMP W-C CAPSULE PO SCH (17:51)
[2017-05-30] MEDS: OXYCODONE HCL IR 5 MG TABLET PO PRN (17:55)
[2017-05-30] MEDS: MIRTAZAPINE 15 MG TABLET PO SCH (22:28)
[2017-05-31] MEDS: LEVOTHYROXINE SODIUM 0.025 MG TABLET PO SCH (06:17)
[2017-05-31] MEDS: LANSOPRAZOLE 30 MG TAB.RAP.DR PO SCH (06:17)
[2017-05-31] MEDS: OXYCODONE HCL IR 5 MG TABLET PO PRN ×3 (06:27→20:37)
[2017-05-31 07:58] LABS: ANION GAP 8 (5-19); BLOOD UREA NITROGEN 11 mg/dL (7-20); CALCIUM 7.7 mg/dL (8.4-10.2); CARBON DIOXIDE 28 mmol/L (22-30); CHLORIDE 98 mmol/L (98-107); GLUCOSE 170 mg/dL (75-110); POTASSIUM 3.7 mmol/L (3.6-5.0); SODIUM 133.9 mmol/L (137-145)
[2017-05-31 09:28] LABS: HEMOGLOBIN 8.6 g/dL (13.5-17.0)
--- NOTE | 2017-05-31 09:43 | RADIOLOGY REPORT (SQ) ---
EXAM DESCRIPTION: CHEST SINGLE VIEW COMPLETED DATE/TIME: 05/31/2017 9:31 am REASON FOR STUDY: assess pleural effusions I48.0 PAROXYSMAL ATRIAL FIBRILLATION R73.9 HYPERGLYCEMI A, UNSPECIFIED R07.89 OTHER CHEST PAIN COMPARISON: 05/27/2017 NUMBER OF VIEWS: One view. TECHNIQUE: Single frontal radiographic image of the chest acquired. LIMITATIONS: None. FINDINGS: LUNGS AND PLEURA: Small pleural effusions bilaterally with improved aeration in the right lung. Interval silhouetting of the left diaphragm. No pneumothorax. MEDIASTINUM AND HILAR STRUCTURES: Stable heart size and mediastinal structures. HEART AND VASCULAR STRUCTURES: Stable appearance. SUPPORT DEVICES: Appropriate location without change. BONES: No acute findings. OTHER: No other significant finding. IMPRESSION: Small pleural effusions. Worsening atelectasis or developing pneumonia in the left lowe r lobe. TECHNICAL DOCUMENTATION: JOB ID: [id number] [employer]- All Rights Reserved Reading location - IP/workstation name: [email or web address]
[2017-05-31] MEDS: CLONIDINE HCL 0.2 MG TABLET PO SCH ×2 (10:15→21:37)
[2017-05-31] MEDS: METOPROLOL SUCCINATE 25 MG TAB.SR.24H PO SCH ×2 (10:15→21:37)
[2017-05-31] MEDS: CALCIUM CARBONATE 500 MG TABLET PO SCH ×2 (10:15→18:14)
[2017-05-31] MEDS: FOLIC ACID/VITAMIN B COMP W-C CAPSULE PO SCH (10:15)
[2017-05-31] MEDS: NICOTINE 14 MG/24 HR PATCH.TD24 TOP SCH (10:16)
[2017-05-31] MEDS: OXYCODONE HCL SR 10 MG TABLET PO SCH ×2 (10:16→21:37)
[2017-05-31 10:29] LABS: HEMATOCRIT 26.3 % (37.9-51.0); MEAN CORPUSCULAR HEMOGLOBIN 29.5 pg (27.0-33.4); MEAN CORPUSCULAR HGB CONC 32.7 g/dL (32.0-36.0); MEAN CORPUSCULAR VOLUME 91 fl (80-97); RED BLOOD COUNT 2.91 10^6/uL (4.35-5.55); RED CELL DISTRIBUTION WIDTH 16.4 % (11.5-14.0)
[2017-05-31 10:39] LABS: PLATELET COUNT 18 10^3/uL (150-450)
--- NOTE | 2017-05-31 11:07 | PDOC PROGRESS REPORT ---
Subjective Progress Note for:: 05/31/17 Subjective:: Patient was seen laying in bed somewhat quiet. He denies any complaints. There is no bleeding or bruising. His platelet count is noted to be low at 18, 000 today. Patient does have a history of chronic thrombus cytopenia and there is a possible etiology of the linezolid versus ITP. It appears patient was started on prednisone. If his platelet count drops below 10,000 although there is any active bleeding patient we needs to be transfused. Chest x-ray done today shows small pleural effusions with worsening atelectasis or developing pneumonia in the left lower lobe Reason For Visit: AFIB WITH RVR THROMBOCYTOPENIA LACTIC ACIDOSIS Physical Exam Vital Signs: Temp Pulse Resp BP Pulse Ox 97.7 F 58 L 16 139/50 H 98 05/31/17 07:20 05/31/17 07:20 05/31/17 07:20 05/31/17 07:20 05/31/17 07:20 General appearance: PRESENT: no acute distress, other - Elderly and frail Head exam: PRESENT: atraumatic Ear exam: ABSENT: bleeding Mouth exam: PRESENT: dry mucosa Neck exam: ABSENT: carotid bruit, JVD, lymphadenopathy, thyromegaly Respiratory exam: PRESENT: clear to auscultation nan. ABSENT: rales, rhonchi, wheezes Cardiovascular exam: PRESENT: RRR. ABSENT: diastolic murmur, rubs, systolic murmur Pulses: PRESENT: normal dorsalis pedis pul GI/Abdominal exam: PRESENT: normal bowel sounds, soft. ABSENT: distended, guarding, mass, organolmegaly, rebound, tenderness Rectal exam: PRESENT: deferred Extremities exam: PRESENT: full ROM. ABSENT: calf tenderness, clubbing, pedal edema Neurological exam: PRESENT: other - Sleeping but easily arousable Psychiatric exam: PRESENT: appropriate affect, normal mood. ABSENT: homicidal ideation, suicidal ideation Results Laboratory Results: 05/31/17 10:20 05/31/17 10:20 WBC 2.0 L D RBC 2.91 L Hgb 8.6 L Hct 26.3 L MCV 91 MCH 29.5 MCHC 32.7 RDW 16.4 H Plt Count 18 L* Impressions: Abdomen/Pelvis CT 05/29/17 00:00 IMPRESSION: Multiple bilateral renal calcifications as noted above most consistent with a combination of vascular calcifications and nonobstructing renal calculi. No definite ureteric calculi are identified. Thickening of the carrera of the colon at the level of the cecum and proximal ascending colon as noted above the possibility of a neoplastic process cannot be excluded. Colonoscopy may be of value for further evaluation. Moderate size bilateral pleural effusions with associated airspace consolidation which could represent atelectatic changes or pneumonic consolidations. Other findings as noted above Chest X-Ray 05/31/17 06:00 IMPRESSION: Small pleural effusions. Worsening atelectasis or developing pneumonia in the left lower lobe. Assessment & Plan - Inpatient Certification Based on my medical assessment, after consideration of the patient's comorbidities, presenting symptoms, or acuity I expect that the services needed warrant INPATIENT care.: Yes I certify that my determination is in accordance with my understanding of Medicare's requirements for reasonable and necessary INPATIENT services [42 CFR 412.3e].: Yes Medical Necessity: Need Close Monitoring Due to Risk of Patient Decompensation, Risk of Complication if Not Cared For in Hospital - Plan Summary Plan Summary: 1.Thrombocytopenia with unclear etiology possibly multifactorial including iatrogenic as patient was on linezolid. His platelet count continues to decrease currently at 18,000 today. It appears he was started on prednisone and we will continue to watch this. As long as there is no bleeding and his platelet count remains above 10,000 we will hopefully wait out and platelet count should recover. 2. Left-sided abdominal pain which appears to be subacute with probable workup done at [facility] as well as here. Continue same management 3. Atrial fibrillation with a rapid ventricular response patient is currently in sinus rhythm he is rate controlled. He had a TTE done with EF of 50%, grade 2/6 diastolic dysfunction and LVH. Patient was started on amiodarone but has since been discontinued. Is not a candidate for anticoagulation especially with his thrombocytopenia 4. Protein calorie malnutrition-encourage supplements 5. Chronic osteomyelitis apparently on linezolid until this was discontinued. It appears that orthopedist suggest definitive treatment is amputation and this can be done as outpatient once patient hopefully recovers from this acute illness. He is currently on no antibiotics and this can be reviewed and was started as appropriate. 6. Lactic acidosis resolved 7. End-stage renal disease currently on hemodialysis as per nephrology.
[2017-05-31 13:06] LABS: HEMATOCRIT 25.6 % (37.9-51.0); HEMOGLOBIN 8.2 g/dL (13.5-17.0); MEAN CORPUSCULAR HEMOGLOBIN 28.9 pg (27.0-33.4); MEAN CORPUSCULAR HGB CONC 32.1 g/dL (32.0-36.0); MEAN CORPUSCULAR VOLUME 90 fl (80-97); RED BLOOD COUNT 2.85 10^6/uL (4.35-5.55); RED CELL DISTRIBUTION WIDTH 16.1 % (11.5-14.0); WHITE BLOOD COUNT 2.2 10^3/uL (4.0-10.5)
[2017-05-31 13:32] LABS: PLATELET COUNT 19 10^3/uL (150-450)
[2017-05-31] MEDS: PREDNISONE 20 MG TABLET PO SCH (13:51)
--- NOTE | 2017-05-31 15:48 | PDOC PROGRESS REPORT ---
Subjective Progress Note for:: 05/31/17 Subjective:: Patient noted resting in bed without any significant complaints.. Patient remains quite debilitated. Pt is denying any chest arm or neck discomfort. Patient denying any PND, orthopnea. Patient denied any sustained palpitations, dizziness, syncope, near syncope. Patient denying any fever chills. Patient denying any other significant discomfort. Patient had a chest x-ray performed which was reviewed. It showed worsening right-sided infiltrate and possible mild worsening of pleural effusion. Patient is maintaining sinus rhythm. Patient had spontaneously converted from atrial fibrillation on 05/28/2017. Review of systems: Rest review of systems negative. Medications: Medications have been reviewed. Reason For Visit: AFIB WITH RVR THROMBOCYTOPENIA LACTIC ACIDOSIS Physical Exam Vital Signs: Temp Pulse Resp BP Pulse Ox 97.9 F 53 L 16 141/53 H 95 05/31/17 12:00 05/31/17 14:00 05/31/17 12:00 05/31/17 12:00 05/31/17 12:00 Exam: GENERAL: Under-nourished and in no acute distress. Alert and oriented x3 HEAD: Atraumatic, normocephalic. EYES: Pupils equal round and reactive to light, extraocular movements intact, sclera anicteric, conjunctiva are normal. ENT: TMs normal, nares patent, oropharynx clear without exudates. Moist mucous membranes. No oral ulcerations or bleeding gums noted NECK: supple without lymphadenopathy. Trachea is central. No cervical or axillary lymphadenopathy noted. Carotids are 2+, JVD WNL LUNGS: Respiration seems nonlabored, no significant accessory muscle action noted. Bibasilar fine crackles and mild wheezing noted. Mild dullness noted both bases. CHEST: Palpation of the chest wall shows no significant chest wall tenderness. No other significant abnormalities noted. 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 ABDOMEN: Soft, no significant tenderness appreciated, normoactive bowel sounds. No guarding, no rebound. No rigidity noted . No masses appreciated. EXTREMITIES: Pedal pulses are 1-2+, no calf tenderness noted. No clubbing or cyanosis.trace to 1+ pedal edema noted NEUROLOGICAL: Focused neurological exam showed no significant neurologic deficit. Normal speech, no focal weakness appreciated. PSYCH: Mood possibly could be depressed. Did not check judgment today. SKIN: No significant ecchymosis, rash, ulcerations or signs of pruritus noted. MUSCULOSKELETAL EXAM: No significant joint swelling noted. Results Laboratory Results: 05/31/17 12:51 05/31/17 05/31/17 10:20 12:51 WBC 2.0 L D 2.2 L RBC 2.91 L 2.85 L Hgb 8.6 L 8.2 L Hct 26.3 L 25.6 L MCV 91 90 MCH 29.5 28.9 MCHC 32.7 32.1 RDW 16.4 H 16.1 H Plt Count 18 L* 19 L* EKG Comments: Telemetry shows sinus rhythm without any sustained tacky or bradycardia arrhythmias. Impressions: Abdomen/Pelvis CT 05/29/17 00:00 IMPRESSION: Multiple bilateral renal calcifications as noted above most consistent with a combination of vascular calcifications and nonobstructing renal calculi. No definite ureteric calculi are identified. Thickening of the carrera of the colon at the level of the cecum and proximal ascending colon as noted above the possibility of a neoplastic process cannot be excluded. Colonoscopy may be of value for further evaluation. Moderate size bilateral pleural effusions with associated airspace consolidation which could represent atelectatic changes or pneumonic consolidations. Other findings as noted above Chest X-Ray 05/31/17 06:00 IMPRESSION: Small pleural effusions. Worsening atelectasis or developing pneumonia in the left lower lobe. Assessment & Plan - Diagnosis (1) Atrial fibrillation with rapid ventricular response Is this a current diagnosis for this admission?: Yes (2) ESRD (end stage renal disease) Is this a current diagnosis for this admission?: Yes (3) Hypertension Is this a current diagnosis for this admission?: Yes (4) Impaired mobility and ADLs Is this a current diagnosis for this admission?: Yes (5) Tobacco abuse Is this a current diagnosis for this admission?: Yes (6) Undernutrition Is this a current diagnosis for this admission?: Yes (7) Pneumonia Qualifiers: Pneumonia type: due to unspecified organism Lung location: unspecified part of lung Is this a current diagnosis for this admission?: Yes (8) Thrombocytopenia Is this a current diagnosis for this admission?: Yes - Notes Notes: Atrial fibrillation with rapid ventricular response: It seems patient was never started on amiodarone. In spite of that patient has maintained sinus rhythm. I do not feel it is in the longer needed to start patient on amiodarone unless there is recurrence of atrial fibrillation. Patient felt a suboptimal candidate for chronic anticoagulation and in view of end-stage renal disease and thrombocytopenia, the only anticoagulant that patient would be a candidate for it would be chronic Coumadin therapy. There is some relative contraindication. Will let field property loss specialist and historiography teacher make that decision as patient would need to regular follow-up very closely if any chronic anticoagulation is started. Thrombocytopenia: On steroid therapy. End-stage renal disease: Patient on dialysis therapy. Hypertension: Blood pressure is satisfactorily controlled. Impaired mobility and ADLS: Patient will benefit from physical therapy. Tobacco abuse: Patient will benefit from smoking cessation. Undernutrition: Patient noted to be underweight. May consider dietary consultation. May need to rule out other causes of significant weight loss. Pneumonia: Patient on antibiotic therapy. It may be worthwhile to consider a CT chest without contrast to evaluate underlying pneumonia and pleural effusion more fully.
[2017-05-31] MEDS: MIRTAZAPINE 15 MG TABLET PO SCH (21:37)
[2017-06-01] MEDS: OXYCODONE HCL IR 5 MG TABLET PO PRN ×3 (06:01→23:36)
[2017-06-01] MEDS: LEVOTHYROXINE SODIUM 0.025 MG TABLET PO SCH (06:01)
[2017-06-01] MEDS: LANSOPRAZOLE 30 MG TAB.RAP.DR PO SCH (06:01)
[2017-06-01] MEDS: CLONIDINE HCL 0.2 MG TABLET PO SCH ×2 (09:55→22:13)
[2017-06-01] MEDS: LINEZOLID 600 MG TABLET PO SCH (09:55)
[2017-06-01] MEDS: METOPROLOL SUCCINATE 25 MG TAB.SR.24H PO SCH ×2 (09:55→22:13)
[2017-06-01] MEDS: ISOSORBIDE MONONITRATE 30 MG TAB.ER.24H PO SCH (09:55)
[2017-06-01] MEDS: CALCIUM CARBONATE 500 MG TABLET PO SCH ×2 (09:55→17:33)
[2017-06-01] MEDS: FOLIC ACID/VITAMIN B COMP W-C CAPSULE PO SCH (09:55)
[2017-06-01] MEDS: AMLODIPINE BESYLATE 10 MG TABLET PO SCH (09:55)
[2017-06-01] MEDS: NICOTINE 14 MG/24 HR PATCH.TD24 TOP SCH (09:56)
[2017-06-01] MEDS: OXYCODONE HCL SR 10 MG TABLET PO SCH ×2 (09:56→22:13)
[2017-06-01 11:56] LABS: HEMATOCRIT 25.6 % (37.9-51.0); HEMOGLOBIN 8.3 g/dL (13.5-17.0); MEAN CORPUSCULAR HGB CONC 32.3 g/dL (32.0-36.0); MEAN CORPUSCULAR VOLUME 90 fl (80-97); RED BLOOD COUNT 2.86 10^6/uL (4.35-5.55); RED CELL DISTRIBUTION WIDTH 16.2 % (11.5-14.0); WHITE BLOOD COUNT 3.9 10^3/uL (4.0-10.5)
[2017-06-01 12:07] LABS: PLATELET COUNT 15 10^3/uL (150-450)
[2017-06-01] MEDS: PREDNISONE 20 MG TABLET PO SCH (13:10)
--- NOTE | 2017-06-01 13:50 | PDOC PROGRESS REPORT ---
Subjective Progress Note for:: 06/01/17 Subjective:: Patient was seen laying in bed somewhat quiet. He denies any complaints. There is no bleeding or bruising. His platelet count is noted to be low at 15, 000 today. Patient does have a history of chronic thrombocytopenia and there is a possible etiology of the linezolid versus ITP. It appears patient was started on prednisone. If his platelet count drops below 10,000 although there is any active bleeding patient he needs to be transfused. Zyvox has been discontinued and a hematology consult ordered Reason For Visit: AFIB WITH RVR THROMBOCYTOPENIA LACTIC ACIDOSIS Physical Exam Vital Signs: Temp Pulse Resp BP Pulse Ox 97.4 F 58 L 16 130/46 H 99 06/01/17 11:32 06/01/17 11:32 06/01/17 11:32 06/01/17 11:32 06/01/17 11:32 Intake & Output 05/31/17 06/01/17 06/02/17 06:59 06:59 06:59 Intake Total 340 Balance 340 Weight 55.8 kg General appearance: PRESENT: no acute distress, thin - Chronically ill looking Head exam: PRESENT: atraumatic Ear exam: PRESENT: bleeding Neck exam: ABSENT: carotid bruit, JVD, lymphadenopathy, thyromegaly Respiratory exam: PRESENT: unlabored. ABSENT: chest wall tenderness, retraction , rhonchi, tachypnea, wheezes Cardiovascular exam: PRESENT: RRR. ABSENT: diastolic murmur, rubs, systolic murmur GI/Abdominal exam: PRESENT: normal bowel sounds, soft. ABSENT: distended, guarding, mass, organolmegaly, rebound, tenderness Rectal exam: PRESENT: deferred Neurological exam: PRESENT: alert, awake, oriented to person, oriented to time, oriented to situation Skin exam: PRESENT: abrasion, rash, skin tears Results Laboratory Results: 06/01/17 11:19 06/01/17 11:19 WBC 3.9 L RBC 2.86 L Hgb 8.3 L Hct 25.6 L MCV 90 MCH 29.0 MCHC 32.3 RDW 16.2 H Plt Count 15 L* Impressions: Abdomen/Pelvis CT 05/29/17 00:00 IMPRESSION: Multiple bilateral renal calcifications as noted above most consistent with a combination of vascular calcifications and nonobstructing renal calculi. No definite ureteric calculi are identified. Thickening of the carrera of the colon at the level of the cecum and proximal ascending colon as noted above the possibility of a neoplastic process cannot be excluded. Colonoscopy may be of value for further evaluation. Moderate size bilateral pleural effusions with associated airspace consolidation which could represent atelectatic changes or pneumonic consolidations. Other findings as noted above Chest X-Ray 05/31/17 06:00 IMPRESSION: Small pleural effusions. Worsening atelectasis or developing pneumonia in the left lower lobe. Assessment & Plan - Time Time Spent with patient: 15-24 minutes Medications reviewed and adjusted accordingly: Yes - Inpatient Certification Medical Necessity: Risk of Complication if Not Cared For in Hospital - Plan Summary Plan Summary: 1.Thrombocytopenia with unclear etiology possibly multifactorial including iatrogenic as patient was on linezolid. [place] [address] today. Hematology consult has been ordered 2. Left-sided abdominal pain which appears to be subacute with probable workup done at [facility] as well as here. Continue same management 3. Atrial fibrillation with a rapid ventricular response patient is currently in sinus rhythm he is rate controlled. He had a TTE done with EF of 50%, grade 2/6 diastolic dysfunction and LVH. Patient was started on amiodarone but has since been discontinued. He is not a candidate for anticoagulation especially with his thrombocytopenia 4. Protein calorie malnutrition-encourage supplements 5. Chronic osteomyelitis apparently on linezolid until this was discontinued. It appears that orthopedist suggest definitive treatment is amputation and this can be done as outpatient once patient hopefully recovers from this acute illness. He is currently on no antibiotics and this can be reviewed and restarted as appropriate. 6. Lactic acidosis resolved 7. End-stage renal disease currently on hemodialysis as per nephrology. 8. There has been no evidence of bleeding despite his severe thrombocytopenia and patient is currently on prednisone 60 mg and Zyvox has been discontinued we will continue to follow closely
--- NOTE | 2017-06-01 13:54 | PDOC PROGRESS REPORT ---
Subjective Progress Note for:: 06/01/17 Subjective:: No new complaints from the patient except feeling very weak and tired. Patient noted resting in bed without any significant complaints.. Patient remains quite debilitated. Pt is denying any chest arm or neck discomfort. Patient denying any PND, orthopnea. Patient denied any sustained palpitations, dizziness, syncope, near syncope. Patient denying any fever chills. Patient denying any other significant discomfort. Patient is maintaining sinus rhythm. Patient had spontaneously converted from atrial fibrillation on 05/28/2017. Review of systems: Rest review of systems negative. Medications: Medications have been reviewed. Reason For Visit: AFIB WITH RVR THROMBOCYTOPENIA LACTIC ACIDOSIS Physical Exam Vital Signs: Temp Pulse Resp BP Pulse Ox 97.4 F 58 L 16 130/46 H 99 06/01/17 11:32 06/01/17 11:32 06/01/17 11:32 06/01/17 11:32 06/01/17 11:32 Intake & Output 05/31/17 06/01/17 06/02/17 06:59 06:59 06:59 Intake Total 340 Balance 340 Weight 55.8 kg Exam: GENERAL: Undernourished and in no acute distress. Alert and oriented x3 HEAD: Atraumatic, normocephalic. EYES: Pupils equal round and reactive to light, extraocular movements intact, sclera anicteric, conjunctiva are normal. ENT: TMs normal, nares patent, oropharynx clear without exudates. Moist mucous membranes. No oral ulcerations or bleeding gums noted NECK: supple without lymphadenopathy. Trachea is central. No cervical or axillary lymphadenopathy noted. Carotids are 2+, JVD WNL LUNGS: Respiration seems nonlabored, no significant accessory muscle action noted. Bibasilar fine crackles and scattered wheezing noted. Mild dullness noted bilaterally especially at bases. CHEST: Palpation of the chest wall shows no significant chest wall tenderness. No other significant abnormalities noted. 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 ABDOMEN: Soft, no significant tenderness appreciated, normoactive bowel sounds. No guarding, no rebound. No rigidity noted . No masses appreciated. EXTREMITIES: Pedal pulses are 1-2+, no calf tenderness noted. No clubbing or cyanosis. Negative pedal edema noted NEUROLOGICAL: Focused neurological exam showed no significant neurologic deficit. Normal speech, no focal weakness appreciated. PSYCH: Normal mood, normal affect. Judgment and insight within normal limits. SKIN: No significant ecchymosis, skin is noted to be warm. MUSCULOSKELETAL EXAM: No significant acute joint swelling noted. Results Laboratory Results: 06/01/17 11:19 06/01/17 11:19 WBC 3.9 L RBC 2.86 L Hgb 8.3 L Hct 25.6 L MCV 90 MCH 29.0 MCHC 32.3 RDW 16.2 H Plt Count 15 L* Impressions: Abdomen/Pelvis CT 05/29/17 00:00 IMPRESSION: Multiple bilateral renal calcifications as noted above most consistent with a combination of vascular calcifications and nonobstructing renal calculi. No definite ureteric calculi are identified. Thickening of the carrera of the colon at the level of the cecum and proximal ascending colon as noted above the possibility of a neoplastic process cannot be excluded. Colonoscopy may be of value for further evaluation. Moderate size bilateral pleural effusions with associated airspace consolidation which could represent atelectatic changes or pneumonic consolidations. Other findings as noted above Chest X-Ray 05/31/17 06:00 IMPRESSION: Small pleural effusions. Worsening atelectasis or developing pneumonia in the left lower lobe. Assessment & Plan - Diagnosis (1) Atrial fibrillation with rapid ventricular response Is this a current diagnosis for this admission?: Yes (2) ESRD (end stage renal disease) Is this a current diagnosis for this admission?: Yes (3) Hypertension Is this a current diagnosis for this admission?: Yes (4) Impaired mobility and ADLs Is this a current diagnosis for this admission?: Yes (5) Tobacco abuse Is this a current diagnosis for this admission?: Yes (6) Undernutrition Is this a current diagnosis for this admission?: Yes (7) Pneumonia Qualifiers: Pneumonia type: due to unspecified organism Lung location: unspecified part of lung Is this a current diagnosis for this admission?: Yes (8) Thrombocytopenia Is this a current diagnosis for this admission?: Yes - Notes Notes: No new recommendations. May consider CT chest for evaluation of pleural effusion and any underlying parenchymal lung disease further. Will repeat an EKG tomorrow to assess rhythm. Chest x-ray from yesterday suggest right basal pneumonia and possible minimal pleural effusion both sides and mild CHF pattern. Atrial fibrillation with rapid ventricular response: It seems patient was never started on amiodarone. In spite of that patient has maintained sinus rhythm. I do not feel it is in the longer needed to start patient on amiodarone unless there is recurrence of atrial fibrillation. Patient felt a suboptimal candidate for chronic anticoagulation and in view of end-stage renal disease and thrombocytopenia, the only anticoagulant that patient would be a candidate for it would be chronic Coumadin therapy. There is some relative contraindication. Will let assistant education director and spice mixer make that decision as patient would need to regular follow-up very closely if any chronic anticoagulation is started. Thrombocytopenia: On steroid therapy. End-stage renal disease: Patient on dialysis therapy. Hypertension: Blood pressure is satisfactorily controlled. Impaired mobility and ADLS: Patient will benefit from physical therapy. Tobacco abuse: Patient will benefit from smoking cessation. Undernutrition: Patient noted to be underweight. May consider dietary consultation. May need to rule out other causes of significant weight loss. Pneumonia: Patient on antibiotic therapy. It may be worthwhile to consider a CT chest without contrast to evaluate underlying pneumonia and pleural effusion more fully. - Time Time with patient: 15-25 minutes - CODE STATUS was discussed, patient remains full code. Surrogate decision-maker unchanged. Multiple medical problems were addressed. More than 50% of the time spent coordinating care, discussing management plans with involved caregivers. Management plans discussed with involved personnels. Medical decision making was of moderate to high complexity , patient's has multiple comorbidities. Medications reviewed and adjusted accordingly: Yes
[2017-06-01] MEDS: ALBUMIN HUMAN 50 ML IV SCH ×2 (17:33→18:25)
[2017-06-01] MEDS: MIRTAZAPINE 15 MG TABLET PO SCH (22:13)
[2017-06-02] MEDS ORDERED: EPOETIN ALFA INJ 20000 UNIT/1 ML VIAL (RENAL) IV PRN (05:00)
[2017-06-02] MEDS ORDERED: HEPARIN SOD (PORCINE) 1,000 UNIT/ML 10 ML VIAL IV PRN (05:00)
[2017-06-02] MEDS ORDERED: NORMAL SALINE 1000 ML 1,000 ML IV PRN (05:00)
[2017-06-02] MEDS: OXYCODONE HCL IR 5 MG TABLET PO PRN ×2 (05:29→16:08)
[2017-06-02] MEDS: LEVOTHYROXINE SODIUM 0.025 MG TABLET PO SCH (05:29)
[2017-06-02] MEDS: LANSOPRAZOLE 30 MG TAB.RAP.DR PO SCH (05:29)
[2017-06-02 05:41] LABS: ALANINE AMINOTRANSFERASE 28 U/L (21-72); ALBUMIN 3.4 g/dL (3.5-5.0); ALKALINE PHOSPHATASE 63 U/L (38-126); ANION GAP 15 (5-19); ASPARTATE AMINO TRANSFERASE 38 U/L (17-59); BILIRUBIN,DIRECT 0.2 mg/dL (0.0-0.4); BILIRUBIN,TOTAL 0.2 mg/dL (0.2-1.3); BLOOD UREA NITROGEN 23 mg/dL (7-20); CALCIUM 8.9 mg/dL (8.4-10.2); CARBON DIOXIDE 25 mmol/L (22-30); CHLORIDE 94 mmol/L (98-107); GLUCOSE 166 mg/dL (75-110); POTASSIUM 3.7 mmol/L (3.6-5.0); SODIUM 134.3 mmol/L (137-145); TOTAL PROTEIN 6.2 g/dL (6.3-8.2)
[2017-06-02 06:34] LABS: ABSOLUTE LYMPHOCYTES (AUTO) 0.8 10^3/uL (0.5-4.7); ABSOLUTE MONOCYTES (AUTO) 0.3 10^3/uL (0.1-1.4); ABSOLUTE NEUT (AUTO) 2.4 10^3/uL (1.7-8.2); BASOPHILS % (AUTO) 0.1 % (0-2); HEMATOCRIT 23.9 % (37.9-51.0); LYMPHOCYTES % (AUTO) 22.5 % (13-45); MEAN CORPUSCULAR HEMOGLOBIN 28.8 pg (27.0-33.4); MEAN CORPUSCULAR HGB CONC 32.3 g/dL (32.0-36.0); MEAN CORPUSCULAR VOLUME 89 fl (80-97); MONOCYTES % (AUTO) 8.6 % (3-13); RED BLOOD COUNT 2.68 10^6/uL (4.35-5.55); RED CELL DISTRIBUTION WIDTH 16.3 % (11.5-14.0); SEGMENTED NEUTROPHILS % (AUTO) 68.8 % (42-78); TOTAL CELLS COUNTED % (AUTO) 100 %; WHITE BLOOD COUNT 3.5 10^3/uL (4.0-10.5)
[2017-06-02 06:37] LABS: HEMOGLOBIN 7.7 g/dL (13.5-17.0)
[2017-06-02 06:45] LABS: PLATELET COUNT 20 10^3/uL (150-450)
[2017-06-02 07:05] LABS: ABSOLUTE RETICS # 0.005 10^6/uL (0.028-0.122)
[2017-06-02] MEDS ORDERED: NORMAL SALINE 250 ML IV PRN (08:02)
--- NOTE | 2017-06-02 08:12 | PDOC CONSULTATION ---
Consultation Consult Date: 06/02/17 Consult reason:: Hematology consultation was requested for pancytopenia. History of Present Illness Admission Date/PCP: 05/31/17 08:07 ANA MCMANUS MD History of Present Illness: Mr. Franz is a 67-year-old gentleman with history of end-stage renal disease on hemodialysis 3 times a week, liver cirrhosis, nephrolithiasis with recent right ureteral stent placement and removal at [facility], toe osteomyelitis and chronic back pain who was brought to the emergency room from [facility] after hemodialysis due to tachycardia with irregular rhythm with high suspicion for atrial fibrillation. When he got here the patient was still found to be in atrial fibrillation but but with better rate control. Ornamenter Hand, Dr. Ulloa was consulted. On admission, his CBC was normal. Patient tells me that he believes he is in the hospital for bronchitis. He remembers having been told that he had a low platelet count during his last admission about a month ago. He believes he received a platelet transfusion and this took care of the problem. He denies any bleeding. Today, he states that he is not feeling too bad. He is sleepy and believe he is still too weak to go home. He has occasional coughing spasms and continues dialysis (started about 2 years ago). Past Medical History Cardiac Medical History: Reports: Congestive Heart Failure, Hypertension Denies: Coronary Artery Disease, DVT, Myocardial Infarction, Hyperlipidema, Pulmonary Embolism Pulmonary Medical History: Denies: Asthma, Bronchitis, Chronic Obstructive Pulmonary Disease (COPD), Pneumonia, Sleep Apnea Neurological Medical History: Reports: Other - Lumbar disc herniation with chronic back pain managed by pain management Denies: Seizures Endocrine Medical History: Denies: Diabetes Mellitus Type 1, Diabetes Mellitus Type 2, Hyperthyroidism, Hypothyroidism Renal/ Medical History: Reports: End Stage Renal Disease Malignancy Medical History: Reports: Skin Cancer GI Medical History: Reports: Cirrhosis, Gastroesophageal Reflux Disease, Peptic Ulcer Disease Musculoskeltal Medical History: Reports: Arthritis, Gout Psychiatric Medical History: Reports: Depression, General Anxiety Disorder, Tobacco Dependency Hematology: Denies: Anemia Infectious Medical History: Denies: Clostridium Difficile, Methicillin-Resistant Staph Aureus Past Surgical History Past Surgical History: Reports: Appendectomy, Cholecystectomy, Herniorrhaphy, Orthopedic Surgery - B elbow, R wrist, Vascular Surgery - Perm catheter for dialysis; fistula formation, maturing, for dialysis., Other - Cataract extraction, right ureteral stent Social History Occupation: Lives alone. One child. Former alcohol. Lives with: Family Smoking Status: Current Every Day Smoker Frequency of Alcohol Use: None Hx Recreational Drug Use: No Drugs: None Hx Prescription Drug Abuse: No - Advance Directive Resuscitation Status: Full Code Family History Family History: Hypertension Parental Family History Reviewed: Yes - Father with liver cancer. Mother age 33 with ?breast cancer. Children Family History Reviewed: Yes Sibling(s) Family History Reviewed.: No Medication/Allergy Home Medications: Amlodipine Besylate [Norvasc 10 mg Tablet] 10 mg PO SUMOWEFR@1000 05/27/17 Aspirin [Aspirin 81 mg Chewable Tablet] 81 mg PO DAILY 05/27/17 Calcium Carbonate [Os-Carlos Manuel 500 mg Tablet (Oyster-Shell)] 1,250 mg PO BID Clonidine HCl [Catapres 0.2 mg Tablet] 0.2 mg PO Q12 05/27/17 Folic Acid/Vit B Complex and C [Nephro-Anthony Tablet] 1 tab PO DAILY 05/27/17 Isosorbide Mononitrate [Imdur 30 mg Tablet.er] 30 mg PO SUMOWEFR@1000 05/27/17 Levothyroxine Sodium [Synthroid 0.025 mg Tablet] 25 mcg PO DAILY 05/27/17 Linezolid [Zyvox 600 mg Tablet] 600 mg PO Q12 05/27/17 Mirtazapine [Remeron 15 mg Tablet] 15 mg PO QHS 05/27/17 Nicotine [Nicoderm 14 mg/24 Hr Transdermal Patch] 1 patch TOP DAILY 05/27/17 Omeprazole 20 mg PO DAILY 05/27/17 Oxycodone HCl [Oxy-Ir 5 mg Tablet] 5 mg PO Q8HP PRN 05/27/17 Oxycodone HCl [Oxycontin] 20 mg PO Q12 05/27/17 Allergies/Adverse Reactions: No Known Allergies Allergy (Verified 05/27/17 14:47) Review of Systems Constitutional: PRESENT: weakness. ABSENT: fever(s) Eyes: ABSENT: visual disturbances Ears: ABSENT: hearing changes Nose, Mouth, and Throat: ABSENT: sore throat Respiratory: PRESENT: cough Gastrointestinal: ABSENT: constipation, nausea Genitourinary: PRESENT: other - On dialysis Musculoskeletal: ABSENT: deformity Integumentary: ABSENT: rash Neurological: PRESENT: weakness Hematologic/Lymphatic: ABSENT: easy bruising Physical Exam Vital Signs: Temp Pulse Resp BP Pulse Ox 97.5 F 60 20 134/51 H 96 06/02/17 03:42 06/02/17 03:42 06/02/17 03:42 06/02/17 03:42 06/02/17 03:42 Intake & Output 06/01/17 06/02/17 06/03/17 06:59 06:59 06:59 Intake Total 340 880 Balance 340 880 Weight 55.8 kg 55.9 kg General appearance: PRESENT: no acute distress, thin Head exam: PRESENT: atraumatic Eye exam: PRESENT: PERRLA Ear exam: PRESENT: normal external ear exam Mouth exam: PRESENT: moist, tongue midline Teeth exam: PRESENT: poor dentation Neck exam: ABSENT: lymphadenopathy, tenderness Respiratory exam: PRESENT: wheezes Cardiovascular exam: PRESENT: RRR Pulses: PRESENT: normal dorsalis pedis pul Vascular exam: PRESENT: pallor GI/Abdominal exam: PRESENT: soft. ABSENT: tenderness Extremities exam: ABSENT: pedal edema Musculoskeletal exam: PRESENT: normal inspection Neurological exam: PRESENT: alert, awake Psychiatric exam: PRESENT: appropriate affect Focused psych exam: ABSENT: pressured speech, psychomotor agitation Skin exam: PRESENT: pallor. ABSENT: rash Results Laboratory Results: 06/02/17 05:05 06/02/17 05:05 06/01/17 06/02/17 06/02/17 11:19 05:05 05:05 WBC 3.9 L 3.5 L RBC 2.86 L 2.68 L Hgb 8.3 L 7.7 L Hct 25.6 L 23.9 L MCV 90 89 MCH 29.0 28.8 MCHC 32.3 32.3 RDW 16.2 H 16.3 H Plt Count 15 L* 20 L* Seg Neutrophils % 68.8 Lymphocytes % 22.5 Monocytes % 8.6 Eosinophils % 0.0 Basophils % 0.1 Absolute Neutrophils 2.4 Absolute Lymphocytes 0.8 Absolute Monocytes 0.3 Absolute Eosinophils 0.0 Absolute Basophils 0.0 Sodium 134.3 L Potassium 3.7 Chloride 94 L Carbon Dioxide 25 Anion Gap 15 BUN 23 H Creatinine 3.80 H Est GFR ( Amer) 19 L Est GFR (Non-Af Amer) 16 L Glucose 166 H Calcium 8.9 Total Bilirubin 0.2 AST 38 ALT 28 Alkaline Phosphatase 63 Total Protein 6.2 L Albumin 3.4 L Impressions: Abdomen/Pelvis CT 05/29/17 00:00 IMPRESSION: Multiple bilateral renal calcifications as noted above most consistent with a combination of vascular calcifications and nonobstructing renal calculi. No definite ureteric calculi are identified. Thickening of the carrera of the colon at the level of the cecum and proximal ascending colon as noted above the possibility of a neoplastic process cannot be excluded. Colonoscopy may be of value for further evaluation. Moderate size bilateral pleural effusions with associated airspace consolidation which could represent atelectatic changes or pneumonic consolidations. Other findings as noted above Chest X-Ray 05/31/17 06:00 IMPRESSION: Small pleural effusions. Worsening atelectasis or developing pneumonia in the left lower lobe. Assessment & Plan - Diagnosis (1) Pancytopenia Is this a current diagnosis for this admission?: Yes Plan: Looking over labs from previous visits and during this stay, this is not just a thrombocytopenia. This is a pancytopenia, which has affected all three cell lines. I do not believe steroids will be effective in this case. It is most likely marrow suppression from an infection or a drug. Most likely culprit would be the Linesolid. This was stopped yesterday. I would DC the prednisone. I would also hold all aspirin and heparin and any other blood thinners until his PLT >50. Support with transfusions. I would give pRBCs for HGB<8 and PLT for PLT < 10. He is not currently neutropenic. If marrow does not show signs of recovery within the next few days, I would perform bone marrow biopsy. - Plan Summary Plan Summary: Thank you for this consultation. I will continue to follow with you.
[2017-06-02 08:17] LABS: ABSOLUTE RETICS# UNABLE TO CALCULATE ABSOLUTE RETIC; RETICULOCYTE COUNT (AUTO) < 0.20 % (0.66-2.85)
--- NOTE | 2017-06-02 09:15 | EKG REPORT ---
SEVERITY:- ABNORMAL ECG - PROBABLE SINUS RHYTHM, REC REPEAT EKG SEC TO BASELINE ARTIFACTS ANTERIOR INFARCT, AGE INDETERMINATE NONSPECIFIC T ABNORMALITIES, INFERIOR LEADS BORDERLINE PROLONGED QT INTERVAL : Confirmed by: Jory Ulloa 02-Jun-2017 09:14:17
[2017-06-02] MEDS: NICOTINE 14 MG/24 HR PATCH.TD24 TOP SCH (12:39)
[2017-06-02] MEDS: FOLIC ACID/VITAMIN B COMP W-C CAPSULE PO SCH (17:40)
[2017-06-02] MEDS: PREDNISONE 20 MG TABLET PO SCH (17:41)
[2017-06-02] MEDS: ISOSORBIDE MONONITRATE 30 MG TAB.ER.24H PO SCH (17:41)
[2017-06-02] MEDS: CALCIUM CARBONATE 500 MG TABLET PO SCH ×2 (17:42→17:44)
[2017-06-02] MEDS: AMLODIPINE BESYLATE 10 MG TABLET PO SCH (17:42)
--- NOTE | 2017-06-02 17:48 | PDOC PROGRESS REPORT ---
Subjective Progress Note for:: 06/02/17 Subjective:: Patient was seen laying in bed somewhat quiet. He denies any complaints. There is no bleeding or bruising. His platelet count is noted to be low at 15, 000 today. Patient does have a history of chronic thrombocytopenia and there is a possible etiology of the linezolid versus ITP. It appears patient was started on prednisone. If his platelet count drops below 10,000 although there is any active bleeding patient he needs to be transfused. Zyvox has been discontinued and a hematology consult done today appreciated Reason For Visit: AFIB WITH RVR THROMBOCYTOPENIA LACTIC ACIDOSIS Physical Exam Vital Signs: Temp Pulse Resp BP Pulse Ox 97.5 F 58 L 14 186/96 H 97 06/02/17 15:08 06/02/17 15:08 06/02/17 15:08 06/02/17 15:08 06/02/17 15:08 Intake & Output 06/01/17 06/02/17 06/03/17 06:59 06:59 06:59 Intake Total 340 880 600 Balance 340 880 600 Weight 55.8 kg 55.9 kg General appearance: PRESENT: no acute distress, thin, other - ill looking Mouth exam: PRESENT: dry mucosa Respiratory exam: PRESENT: clear to auscultation nan. ABSENT: rales, rhonchi, wheezes Cardiovascular exam: PRESENT: RRR. ABSENT: diastolic murmur, rubs, systolic murmur Pulses: PRESENT: normal dorsalis pedis pul GI/Abdominal exam: PRESENT: normal bowel sounds, soft. ABSENT: distended, guarding, mass, organolmegaly, rebound, tenderness Rectal exam: PRESENT: deferred Extremities exam: PRESENT: full ROM. ABSENT: calf tenderness, clubbing, pedal edema Neurological exam: PRESENT: alert, awake, oriented to time, oriented to situation Results Laboratory Results: 06/02/17 05:05 06/02/17 05:05 06/02/17 06/02/17 06/02/17 05:05 05:05 05:05 WBC 3.5 L RBC 2.68 L Hgb 7.7 L Hct 23.9 L MCV 89 MCH 28.8 MCHC 32.3 RDW 16.3 H Plt Count 20 L* Seg Neutrophils % 68.8 Lymphocytes % 22.5 Monocytes % 8.6 Eosinophils % 0.0 Basophils % 0.1 Absolute Neutrophils 2.4 Absolute Lymphocytes 0.8 Absolute Monocytes 0.3 Absolute Eosinophils 0.0 Absolute Basophils 0.0 Retic Count (auto) < 0.20 L Absolute Retic UNABLE TO CALCULATE ABSOLUTE RETIC Sodium 134.3 L Potassium 3.7 Chloride 94 L Carbon Dioxide 25 Anion Gap 15 BUN 23 H Creatinine 3.80 H Est GFR ( Amer) 19 L Est GFR (Non-Af Amer) 16 L Glucose 166 H Calcium 8.9 Total Bilirubin 0.2 AST 38 ALT 28 Alkaline Phosphatase 63 Total Protein 6.2 L Albumin 3.4 L Blood Type Antibody Screen 06/02/17 08:23 WBC RBC Hgb Hct MCV MCH MCHC RDW Plt Count Seg Neutrophils % Lymphocytes % Monocytes % Eosinophils % Basophils % Absolute Neutrophils Absolute Lymphocytes Absolute Monocytes Absolute Eosinophils Absolute Basophils Retic Count (auto) Absolute Retic Sodium Potassium Chloride Carbon Dioxide Anion Gap BUN Creatinine Est GFR ( Amer) Est GFR (Non-Af Amer) Glucose Calcium Total Bilirubin AST ALT Alkaline Phosphatase Total Protein Albumin Blood Type A POSITIVE Antibody Screen NEGATIVE Impressions: Abdomen/Pelvis CT 05/29/17 00:00 IMPRESSION: Multiple bilateral renal calcifications as noted above most consistent with a combination of vascular calcifications and nonobstructing renal calculi. No definite ureteric calculi are identified. Thickening of the carrera of the colon at the level of the cecum and proximal ascending colon as noted above the possibility of a neoplastic process cannot be excluded. Colonoscopy may be of value for further evaluation. Moderate size bilateral pleural effusions with associated airspace consolidation which could represent atelectatic changes or pneumonic consolidations. Other findings as noted above Chest X-Ray 05/31/17 06:00 IMPRESSION: Small pleural effusions. Worsening atelectasis or developing pneumonia in the left lower lobe. Assessment & Plan - Plan Summary Plan Summary: 1.Thrombocytopenia with unclear etiology possibly multifactorial including iatrogenic as patient was on linezolid. His platelet up to 20k today Knotting Machine Operator suggest to hold aspirin and heparin and any other anticoagulant of this until his platelet count is more than 50,000 however patient is receiving heparin during dialysis. He received 2 units of packed red blood cells today during dialysis. Suggestion is also to discontinue prednisone and this is currently being tapered. If no recovery of his cell counts bone marrow biopsy will likely be performed 2. Left-sided abdominal pain which appears to be subacute with workup done at [facility] as well as here. Continue same management 3. Atrial fibrillation with a rapid ventricular response patient is currently in sinus rhythm he is rate controlled. He had a TTE done with EF of 50%, grade 2/6 diastolic dysfunction and LVH. Patient was started on amiodarone but has since been discontinued. He is not a candidate for anticoagulation especially with his thrombocytopenia 4. Protein calorie malnutrition-encourage supplements 5. Chronic osteomyelitis apparently on linezolid until this was discontinued. It appears that orthopedist suggest definitive treatment is amputation and this can be done as outpatient once patient hopefully recovers from this acute illness. He is currently on no antibiotics and this can be reviewed and restarted as appropriate. 6. Lactic acidosis resolved 7. End-stage renal disease currently on hemodialysis as per nephrology. 8. There has been no evidence of bleeding despite his severe thrombocytopenia and patient is currently on prednisone 60 mg and Zyvox has been discontinued we will continue to follow closely #9 pancytopenia likely iatrogenic secondary to linezolid. This has been discontinued and will continue to monitor his CBC
[2017-06-02] MEDS: METOPROLOL SUCCINATE 25 MG TAB.SR.24H PO SCH ×2 (17:52→22:30)
[2017-06-02] MEDS: OXYCODONE HCL SR 10 MG TABLET PO SCH ×2 (17:52→22:30)
[2017-06-02] MEDS: CLONIDINE HCL 0.2 MG TABLET PO SCH ×2 (17:53→22:30)
--- NOTE | 2017-06-02 19:06 | PDOC PROGRESS REPORT ---
Subjective Progress Note for:: 06/02/17 Subjective:: I saw the patient during initiation of hemodialysis at around 1:20 PM this afternoon. He said he is sleepy but he seems to be more awake today than last week when I saw him on dialysis. Currently he is not complaining of any flank pain. He described as sharp episode of pain yesterday though. Patient's platelets also went down too low yesterday and slightly better today. Prednisone was started yesterday. Hematology consult by Dr. Porter done today. Patient thinks that his breathing is better. He has been nonproductive and occasional cough. Reason For Visit: ESRD, , THROMBOCYTOPENIA, pleural effusion Physical Exam Vital Signs: Temp Pulse Resp BP Pulse Ox 97.7 F 63 22 H 147/53 H 100 06/02/17 17:38 06/02/17 17:38 06/02/17 17:38 06/02/17 17:38 06/02/17 17:38 Intake & Output 06/01/17 06/02/17 06/03/17 06:59 06:59 06:59 Intake Total 340 880 600 Balance 340 880 600 Weight 55.8 kg 55.9 kg Vitals during dialysis: Blood pressure 170/70, heart rate of 63, oxygen saturation 94%. Exam: General appearance: PRESENT: no acute distress, cooperative, well-developed, well-nourished Head exam: PRESENT: atraumatic, normocephalic Eye exam: PRESENT: conjunctiva pale, PERRLA. ABSENT: scleral icterus Neck exam: ABSENT: JVD Respiratory exam: PRESENT: Diminished breath sounds. ABSENT: crackles, rales, rhonchi, unlabored, wheezes Cardiovascular exam: PRESENT: Regular rate rhythm -+S1, +S2. ABSENT: diastolic murmur, systolic murmur GI/Abdominal exam: PRESENT: normal bowel sounds, soft. ABSENT: guarding, mass, tenderness Extremities exam: ABSENT: No edema Neurological exam: PRESENT: alert, awake, oriented to person, place and time. Skin exam: PRESENT: dry, warm, some bruises on his arms Results Laboratory Results: 06/02/17 05:05 06/02/17 05:05 06/02/17 06/02/17 06/02/17 05:05 05:05 05:05 WBC 3.5 L RBC 2.68 L Hgb 7.7 L Hct 23.9 L MCV 89 MCH 28.8 MCHC 32.3 RDW 16.3 H Plt Count 20 L* Seg Neutrophils % 68.8 Lymphocytes % 22.5 Monocytes % 8.6 Eosinophils % 0.0 Basophils % 0.1 Absolute Neutrophils 2.4 Absolute Lymphocytes 0.8 Absolute Monocytes 0.3 Absolute Eosinophils 0.0 Absolute Basophils 0.0 Retic Count (auto) < 0.20 L Absolute Retic UNABLE TO CALCULATE ABSOLUTE RETIC Sodium 134.3 L Potassium 3.7 Chloride 94 L Carbon Dioxide 25 Anion Gap 15 BUN 23 H Creatinine 3.80 H Est GFR ( Amer) 19 L Est GFR (Non-Af Amer) 16 L Glucose 166 H Calcium 8.9 Total Bilirubin 0.2 AST 38 ALT 28 Alkaline Phosphatase 63 Total Protein 6.2 L Albumin 3.4 L Blood Type Antibody Screen 06/02/17 08:23 WBC RBC Hgb Hct MCV MCH MCHC RDW Plt Count Seg Neutrophils % Lymphocytes % Monocytes % Eosinophils % Basophils % Absolute Neutrophils Absolute Lymphocytes Absolute Monocytes Absolute Eosinophils Absolute Basophils Retic Count (auto) Absolute Retic Sodium Potassium Chloride Carbon Dioxide Anion Gap BUN Creatinine Est GFR ( Amer) Est GFR (Non-Af Amer) Glucose Calcium Total Bilirubin AST ALT Alkaline Phosphatase Total Protein Albumin Blood Type A POSITIVE Antibody Screen NEGATIVE Impressions: Abdomen/Pelvis CT 05/29/17 00:00 IMPRESSION: Multiple bilateral renal calcifications as noted above most consistent with a combination of vascular calcifications and nonobstructing renal calculi. No definite ureteric calculi are identified. Thickening of the carrera of the colon at the level of the cecum and proximal ascending colon as noted above the possibility of a neoplastic process cannot be excluded. Colonoscopy may be of value for further evaluation. Moderate size bilateral pleural effusions with associated airspace consolidation which could represent atelectatic changes or pneumonic consolidations. Other findings as noted above Chest X-Ray 05/31/17 06:00 IMPRESSION: Small pleural effusions. Worsening atelectasis or developing pneumonia in the left lower lobe. Assessment & Plan - Diagnosis (1) ESRD (end stage renal disease) on dialysis Is this a current diagnosis for this admission?: Yes Plan: We did dialysis today for less than 3 hours due to patient request to get off early, using the patient's PermCath, with 3 potassium bath, blood flow rate of 350 mL per minute, dialysate flow rate of 600 mL per minute, ultrafiltration 2 L as tolerated, no heparin and Procrit with 20,000 units during dialysis intravenously. (2) Anemia in chronic kidney disease (CKD) Is this a current diagnosis for this admission?: Yes Plan: We will give Procrit today during dialysis and as needed and every treatment. Patient also received 2 unit pRBC during dialysis today. (3) Atrial fibrillation with rapid ventricular response Is this a current diagnosis for this admission?: Yes Plan: This is resolved spontaneously now to normal sinus rhythm. Rate is controlled. He was initially started on amiodarone but currently it seems like it was discontinued. He is not a good candidate for anticoagulation due to risks of falls. (4) Pleural effusion Is this a current diagnosis for this admission?: Yes Plan: Moderate and bilateral on CT scan which could be secondary to mild congestive heart failure and minimal fluid overload due to missing dialysis treatments at times. This does not seem to be improving. I talked to Dr. Christine today and recommended doing a non-contrast CT Scan of the chest to characterize this more. She agreed and ordered it. (5) Pancytopenia Is this a current diagnosis for this admission?: Yes Plan: Secondary to linezolid. Hematology consulted. (6) Chronic osteomyelitis Is this a current diagnosis for this admission?: Yes (7) Chronic pain Qualifiers: Is this a current diagnosis for this admission?: Yes (8) Hypertension Is this a current diagnosis for this admission?: Yes Plan: Blood pressure medications including clonidine and amlodipine should be held prior to dialysis treatment. (9) Hypoalbuminemia Is this a current diagnosis for this admission?: Yes - Time Time with patient: 15-25 minutes
--- NOTE | 2017-06-02 19:36 | PDOC PROGRESS REPORT ---
Subjective Progress Note for:: 06/02/17 Subjective:: No new complaints from the patient except feeling very weak and tired. No new complaints today as well. Patient noted resting in bed without any significant complaints.. Patient remains quite debilitated. Pt is denying any chest arm or neck discomfort. Patient denying any PND, orthopnea. Patient denied any sustained palpitations, dizziness, syncope, near syncope. Patient denying any fever chills. Patient denying any other significant discomfort. Patient is maintaining sinus rhythm. Patient had spontaneously converted from atrial fibrillation on 05/28/2017. Review of systems: Rest review of systems negative. Medications: Medications have been reviewed. Reason For Visit: AFIB WITH RVR THROMBOCYTOPENIA LACTIC ACIDOSIS Physical Exam Vital Signs: Temp Pulse Resp BP Pulse Ox 97.7 F 63 22 H 147/53 H 100 06/02/17 17:38 06/02/17 17:38 06/02/17 17:38 06/02/17 17:38 06/02/17 17:38 Intake & Output 06/01/17 06/02/17 06/03/17 06:59 06:59 06:59 Intake Total 369 773 9381 Output Total 2803 Balance 340 880 -1653 Weight 55.8 kg 55.9 kg Exam: GENERAL: Underweight and in no acute distress. Alert and oriented x3 HEAD: Atraumatic, normocephalic. EYES: Pupils equal round and reactive to light, extraocular movements intact, sclera anicteric, conjunctiva are normal. ENT: TMs normal, nares patent, oropharynx clear without exudates. Moist mucous membranes. No oral ulcerations or bleeding gums noted NECK: supple without lymphadenopathy. Trachea is central. No cervical or axillary lymphadenopathy noted. Carotids are 2+, JVD WNL LUNGS: Respiration seems nonlabored, no significant accessory muscle action noted. Bibasilar fine crackles and mild dullness noted both bases. CHEST: Palpation of the chest wall shows no significant chest wall tenderness. No other significant abnormalities noted. 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 ABDOMEN: Soft, no significant tenderness appreciated, normoactive bowel sounds. No guarding, no rebound. No rigidity noted . No masses appreciated. EXTREMITIES: Pedal pulses are 1-2+, no calf tenderness noted. No clubbing or cyanosis.trace pedal edema noted NEUROLOGICAL: Focused neurological exam showed no significant neurologic deficit. Normal speech, no focal weakness appreciated. PSYCH: Normal mood, normal affect. Judgment and insight within normal limits. SKIN: No significant ecchymosis, skin is noted to be warm. MUSCULOSKELETAL EXAM: No significant acute joint swelling noted. Results Laboratory Results: 06/02/17 05:05 06/02/17 05:05 06/02/17 06/02/17 06/02/17 05:05 05:05 05:05 WBC 3.5 L RBC 2.68 L Hgb 7.7 L Hct 23.9 L MCV 89 MCH 28.8 MCHC 32.3 RDW 16.3 H Plt Count 20 L* Seg Neutrophils % 68.8 Lymphocytes % 22.5 Monocytes % 8.6 Eosinophils % 0.0 Basophils % 0.1 Absolute Neutrophils 2.4 Absolute Lymphocytes 0.8 Absolute Monocytes 0.3 Absolute Eosinophils 0.0 Absolute Basophils 0.0 Retic Count (auto) < 0.20 L Absolute Retic UNABLE TO CALCULATE ABSOLUTE RETIC Sodium 134.3 L Potassium 3.7 Chloride 94 L Carbon Dioxide 25 Anion Gap 15 BUN 23 H Creatinine 3.80 H Est GFR ( Amer) 19 L Est GFR (Non-Af Amer) 16 L Glucose 166 H Calcium 8.9 Total Bilirubin 0.2 AST 38 ALT 28 Alkaline Phosphatase 63 Total Protein 6.2 L Albumin 3.4 L Blood Type Antibody Screen 06/02/17 08:23 WBC RBC Hgb Hct MCV MCH MCHC RDW Plt Count Seg Neutrophils % Lymphocytes % Monocytes % Eosinophils % Basophils % Absolute Neutrophils Absolute Lymphocytes Absolute Monocytes Absolute Eosinophils Absolute Basophils Retic Count (auto) Absolute Retic Sodium Potassium Chloride Carbon Dioxide Anion Gap BUN Creatinine Est GFR ( Amer) Est GFR (Non-Af Amer) Glucose Calcium Total Bilirubin AST ALT Alkaline Phosphatase Total Protein Albumin Blood Type A POSITIVE Antibody Screen NEGATIVE EKG Comments: Telemetry shows patient maintaining sinus rhythm. Impressions: Abdomen/Pelvis CT 05/29/17 00:00 IMPRESSION: Multiple bilateral renal calcifications as noted above most consistent with a combination of vascular calcifications and nonobstructing renal calculi. No definite ureteric calculi are identified. Thickening of the carrera of the colon at the level of the cecum and proximal ascending colon as noted above the possibility of a neoplastic process cannot be excluded. Colonoscopy may be of value for further evaluation. Moderate size bilateral pleural effusions with associated airspace consolidation which could represent atelectatic changes or pneumonic consolidations. Other findings as noted above Chest X-Ray 05/31/17 06:00 IMPRESSION: Small pleural effusions. Worsening atelectasis or developing pneumonia in the left lower lobe. Assessment & Plan - Diagnosis (1) Atrial fibrillation with rapid ventricular response Is this a current diagnosis for this admission?: Yes (2) ESRD (end stage renal disease) Is this a current diagnosis for this admission?: Yes (3) Hypertension Is this a current diagnosis for this admission?: Yes (4) Impaired mobility and ADLs Is this a current diagnosis for this admission?: Yes (5) Tobacco abuse Is this a current diagnosis for this admission?: Yes (6) Undernutrition Is this a current diagnosis for this admission?: Yes (7) Pneumonia Qualifiers: Pneumonia type: due to unspecified organism Lung location: unspecified part of lung Is this a current diagnosis for this admission?: Yes (8) Thrombocytopenia Is this a current diagnosis for this admission?: Yes - Notes Notes: Patient remains very debilitated. Patient baseline status seems poor with significant malnutrition. CT scan was performed today. To my review patient has bilateral pleural effusion. An official reading is pending. Atrial fibrillation with rapid ventricular response: It seems patient was never started on amiodarone. In spite of that patient has maintained sinus rhythm. I do not feel it is in the longer needed to start patient on amiodarone unless there is recurrence of atrial fibrillation. Patient felt a suboptimal candidate for chronic anticoagulation and in view of end-stage renal disease and thrombocytopenia, the only anticoagulant that patient would be a candidate for it would be chronic Coumadin therapy. There is some relative contraindication. Will let tissue rewinder and wood heel attacher make that decision as patient would need to regular follow-up very closely if any chronic anticoagulation is started. Thrombocytopenia: On steroid therapy. Cirrhosis of liver: I was informed of this diagnosis by the dialysis nurse. Will review this. End-stage renal disease: Patient on dialysis therapy. Hypertension: Blood pressure is satisfactorily controlled. Impaired mobility and ADLS: Patient will benefit from physical therapy. Tobacco abuse: Patient will benefit from smoking cessation. Undernutrition: Patient noted to be underweight. May consider dietary consultation. May need to rule out other causes of significant weight loss. Pneumonia: Patient on antibiotic therapy. - Time Time with patient: 15-25 minutes - CODE STATUS was discussed, patient remains full code. Surrogate decision-maker unchanged. Multiple medical problems were addressed. More than 50% of the time spent coordinating care, discussing management plans with involved caregivers. Management plans discussed with involved personnels. Medical decision making was of moderate to high complexity , patient's has multiple comorbidities. Medications reviewed and adjusted accordingly: Yes
--- NOTE | 2017-06-02 20:36 | RADIOLOGY REPORT (SQ) ---
EXAM DESCRIPTION: CT CHEST WITHOUT COMPLETED DATE/TIME: 06/02/2017 6:35 pm REASON FOR STUDY: Pleural effusion I48.0 PAROXYSMAL ATRIAL FIBRILLATION R73.9 HYPERGLYCEMIA, UNSPE CIFIED R07.89 OTHER CHEST PAIN COMPARISON: Chest x-ray 05/31/2017 TECHNIQUE: CT scan performed of the chest without intravenous contrast. Images reviewed with lung, soft tissue and bone windows. Reconstructed coronal and sagittal MPR images reviewed. All images st ored on PACS. All CT scanners at this facility use dose modulation, iterative reconstruction, and/or weight based d osing when appropriate to reduce radiation dose to as low as reasonably achievable (ALARA). [facility]: Dose Right [facility]: CareDose [facility]: Dose Right [facility]: Teradose 4D [facility]: [employer] RADIATION DOSE: CT Rad equipment meets quality standard of care and radiation dose reduction techniq ues were employed. CTDIvol: 5.9 mGy. DLP: 238 mGy-cm. mGy. LIMITATIONS: No technical limitations. FINDINGS: LUNGS AND PLEURA: Moderate bilateral pleural effusions. There is partial atelectasis in t he left lower lobe. HILAR AND MEDIASTINAL STRUCTURES: No identified masses or abnormal nodes. No obvious aneurysm. HEART AND VASCULAR STRUCTURES: No aneurysm. No pericardial effusion. UPPER ABDOMEN: No significant findings. Limited exam. THYROID AND OTHER SOFT TISSUES: No masses. No adenopathy. BONES: No significant finding. HARDWARE: Dual-lumen catheter on the right OTHER: No other significant findings. IMPRESSION: Bilateral pleural effusions with partial atelectasis in the left lower lobe. TECHNICAL DOCUMENTATION: JOB ID: [id number] Quality ID # [id number]: Final reports with documentation of one or more dose reduction techniques (e.g., Au tomated exposure control, adjustment of the mA and/or kV according to patient size, use of iterative reconstruction technique) 2010 [employer]- All Rights Reserved Reading location - IP/workstation name: [email or web address]
[2017-06-02] MEDS: MIRTAZAPINE 15 MG TABLET PO SCH (22:30)
[2017-06-03 06:27] LABS: HEMATOCRIT 35.6 % (37.9-51.0); MEAN CORPUSCULAR HEMOGLOBIN 29.1 pg (27.0-33.4); MEAN CORPUSCULAR HGB CONC 33.2 g/dL (32.0-36.0); MEAN CORPUSCULAR VOLUME 88 fl (80-97); RED BLOOD COUNT 4.05 10^6/uL (4.35-5.55); RED CELL DISTRIBUTION WIDTH 16.1 % (11.5-14.0)
[2017-06-03 06:29] LABS: HEMOGLOBIN 11.8 g/dL (13.5-17.0)
[2017-06-03 06:32] LABS: PLATELET COUNT 37 10^3/uL (150-450)
[2017-06-03] MEDS: OXYCODONE HCL IR 5 MG TABLET PO PRN ×2 (06:36→17:22)
[2017-06-03] MEDS: LANSOPRAZOLE 30 MG TAB.RAP.DR PO SCH (06:36)
[2017-06-03] MEDS: LEVOTHYROXINE SODIUM 0.025 MG TABLET PO SCH (06:36)
--- NOTE | 2017-06-03 08:04 | PDOC PROGRESS REPORT ---
Subjective Progress Note for:: 06/03/17 Subjective:: Patient states he had increased pain yesterday, but this is improved today. He is very sleepy this morning. Reason For Visit: AFIB WITH RVR THROMBOCYTOPENIA LACTIC ACIDOSIS Physical Exam Vital Signs: Temp Pulse Resp BP Pulse Ox 97.4 F 63 14 162/64 H 94 06/03/17 04:00 06/03/17 04:00 06/03/17 04:00 06/03/17 04:00 06/03/17 04:00 Intake & Output 06/02/17 06/03/17 06/04/17 06:59 06:59 06:59 Intake Total 880 1615 Output Total 2803 Balance 880 -1188 Weight 55.9 kg 54.9 kg General appearance: PRESENT: no acute distress, thin Respiratory exam: PRESENT: unlabored, other - Clear anteriorly. Cardiovascular exam: PRESENT: RRR GI/Abdominal exam: PRESENT: soft. ABSENT: tenderness Extremities exam: ABSENT: pedal edema Psychiatric exam: PRESENT: appropriate affect Results Laboratory Results: 06/03/17 04:52 06/02/17 05:05 06/02/17 06/02/17 06/03/17 05:05 08:23 04:52 WBC 8.0 D RBC 4.05 L Hgb 11.8 L D Hct 35.6 L MCV 88 MCH 29.1 MCHC 33.2 RDW 16.1 H Plt Count 37 L Retic Count (auto) < 0.20 L Absolute Retic UNABLE TO CALCULATE ABSOLUTE RETIC Blood Type A POSITIVE Antibody Screen NEGATIVE Impressions: Abdomen/Pelvis CT 05/29/17 00:00 IMPRESSION: Multiple bilateral renal calcifications as noted above most consistent with a combination of vascular calcifications and nonobstructing renal calculi. No definite ureteric calculi are identified. Thickening of the carrera of the colon at the level of the cecum and proximal ascending colon as noted above the possibility of a neoplastic process cannot be excluded. Colonoscopy may be of value for further evaluation. Moderate size bilateral pleural effusions with associated airspace consolidation which could represent atelectatic changes or pneumonic consolidations. Other findings as noted above Chest X-Ray 05/31/17 06:00 IMPRESSION: Small pleural effusions. Worsening atelectasis or developing pneumonia in the left lower lobe. Chest CT 06/02/17 00:00 IMPRESSION: Bilateral pleural effusions with partial atelectasis in the left lower lobe. Assessment & Plan - Diagnosis (1) Pancytopenia Is this a current diagnosis for this admission?: Yes Plan: He did receive 2 units pRBCs today, but PLT and WBC are also improved this morning. His retic count was extremely low, which again points to marrow suppression by infection or drug. The Linesolid has been stopped. I will continue to monitor blood counts and consider bone marrow biopsy if this does not continue to improve. I agree with assessment that long-term anticoagulation is not a good idea. Heparin with dialysis should be OK, but watch closely for bleeding. I would not give DVT prophylaxis or ASA until PLT > 50.
[2017-06-03] MEDS: OXYCODONE HCL SR 10 MG TABLET PO SCH ×2 (09:42→21:44)
[2017-06-03] MEDS: CALCIUM CARBONATE 500 MG TABLET PO SCH ×2 (09:43→17:20)
[2017-06-03] MEDS: CLONIDINE HCL 0.2 MG TABLET PO SCH ×2 (09:44→21:44)
[2017-06-03] MEDS: PREDNISONE 20 MG TABLET PO SCH (09:45)
[2017-06-03] MEDS: FOLIC ACID/VITAMIN B COMP W-C CAPSULE PO SCH (09:45)
[2017-06-03] MEDS: NICOTINE 14 MG/24 HR PATCH.TD24 TOP SCH (09:46)
[2017-06-03] MEDS: METOPROLOL SUCCINATE 25 MG TAB.SR.24H PO SCH ×2 (09:46→21:44)
--- NOTE | 2017-06-03 12:43 | PDOC PROGRESS REPORT ---
Subjective Progress Note for:: 06/03/17 Subjective:: No new complaints from the patient except feeling very weak and tired. No new complaints today as well. Patient to have dialysis today. Oncologist report reviewed. Patient noted resting in bed without any significant complaints.. Patient remains quite debilitated. Pt is denying any chest arm or neck discomfort. Patient denying any PND, orthopnea. Patient denied any sustained palpitations, dizziness, syncope, near syncope. Patient denying any fever chills. Patient denying any other significant discomfort. Patient is maintaining sinus rhythm. Patient had spontaneously converted from atrial fibrillation on 05/28/2017. Review of systems: Rest review of systems negative. Medications: Medications have been reviewed. Reason For Visit: AFIB WITH RVR THROMBOCYTOPENIA LACTIC ACIDOSIS Physical Exam Vital Signs: Temp Pulse Resp BP Pulse Ox 98.2 F 60 16 157/59 H 98 06/03/17 11:00 06/03/17 11:00 06/03/17 11:00 06/03/17 11:00 06/03/17 12:10 Intake & Output 06/02/17 06/03/17 06/04/17 06:59 06:59 06:59 Intake Total 880 1615 Output Total 2803 Balance 880 -1188 Weight 55.9 kg 54.9 kg Exam: Lipitor GENERAL: Undernourished and underweight but in no acute distress. Alert and oriented x3 HEAD: Atraumatic, normocephalic. EYES: Pupils equal round and reactive to light, extraocular movements intact, sclera anicteric, conjunctiva are normal. ENT: TMs normal, nares patent, oropharynx clear without exudates. Moist mucous membranes. No oral ulcerations or bleeding gums noted NECK: supple without lymphadenopathy. Trachea is central. No cervical or axillary lymphadenopathy noted. Carotids are 2+, JVD WNL LUNGS: Respiration seems nonlabored, no significant accessory muscle action noted. Bibasilar fine crackles and mild dullness noted both bases. CHEST: Palpation of the chest wall shows no significant chest wall tenderness. No other significant abnormalities noted. 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 ABDOMEN: Soft, no significant tenderness appreciated, normoactive bowel sounds. No guarding, no rebound. No rigidity noted . No masses appreciated. EXTREMITIES: Pedal pulses are 1-2+, no calf tenderness noted. No clubbing or cyanosis. Negative pedal edema noted NEUROLOGICAL: Focused neurological exam showed no significant neurologic deficit. Normal speech, no focal weakness appreciated. PSYCH: Normal mood, normal affect. Judgment and insight within normal limits. SKIN: No significant ecchymosis, skin is noted to be warm. Multiple superficial ecchymosis and excoriations noted. MUSCULOSKELETAL EXAM: No significant acute joint swelling noted. Results Laboratory Results: 06/03/17 04:52 06/02/17 05:05 06/02/17 06/03/17 08:23 04:52 WBC 8.0 D RBC 4.05 L Hgb 11.8 L D Hct 35.6 L MCV 88 MCH 29.1 MCHC 33.2 RDW 16.1 H Plt Count 37 L Blood Type A POSITIVE Antibody Screen NEGATIVE Impressions: Abdomen/Pelvis CT 05/29/17 00:00 IMPRESSION: Multiple bilateral renal calcifications as noted above most consistent with a combination of vascular calcifications and nonobstructing renal calculi. No definite ureteric calculi are identified. Thickening of the carrera of the colon at the level of the cecum and proximal ascending colon as noted above the possibility of a neoplastic process cannot be excluded. Colonoscopy may be of value for further evaluation. Moderate size bilateral pleural effusions with associated airspace consolidation which could represent atelectatic changes or pneumonic consolidations. Other findings as noted above Chest X-Ray 05/31/17 06:00 IMPRESSION: Small pleural effusions. Worsening atelectasis or developing pneumonia in the left lower lobe. Chest CT 06/02/17 00:00 IMPRESSION: Bilateral pleural effusions with partial atelectasis in the left lower lobe. Assessment & Plan - Diagnosis (1) Atrial fibrillation with rapid ventricular response Is this a current diagnosis for this admission?: Yes (2) ESRD (end stage renal disease) Is this a current diagnosis for this admission?: Yes (3) Hypertension Is this a current diagnosis for this admission?: Yes (4) Impaired mobility and ADLs Is this a current diagnosis for this admission?: Yes (5) Tobacco abuse Is this a current diagnosis for this admission?: Yes (6) Undernutrition Is this a current diagnosis for this admission?: Yes (7) Pneumonia Qualifiers: Pneumonia type: due to unspecified organism Lung location: unspecified part of lung Is this a current diagnosis for this admission?: Yes (8) Thrombocytopenia Is this a current diagnosis for this admission?: Yes (9) Bilateral pleural effusion Is this a current diagnosis for this admission?: Yes - Notes Notes: Patient remains very debilitated. Patient baseline status seems poor with significant underweight. Surprisingly albumin level was well preserved.. CT scan showed bilateral pleural effusion. Consider thoracentesis for diagnostic purposes. Atrial fibrillation with rapid ventricular response, this was transient: Currently has been maintaining sinus rhythm for last several days. Patient felt a suboptimal candidate for chronic anticoagulation and in view of end- stage renal disease and thrombocytopenia, the only anticoagulant that patient would be a candidate for it would be chronic Coumadin therapy. There is some relative contraindication. Will let marine rigger and district plant supervisor make that decision as patient would need to regular follow-up very closely if any chronic anticoagulation is started. Thrombocytopenia: On steroid therapy. Cirrhosis of liver: I was informed of this diagnosis by the dialysis nurse. End-stage renal disease: Patient on dialysis therapy. Hypertension: Blood pressure is satisfactorily controlled. Impaired mobility and ADLS: Patient will benefit from physical therapy. I was told by the physical therapy that patient was able to walk 15 feet yesterday. Tobacco abuse: Patient will benefit from smoking cessation. Undernutrition: Patient noted to be underweight. Improve nutrition, evaluate patient for underweight status. Pneumonia: Patient on antibiotic therapy. Bilateral pleural effusion: Could be related to CHF from diastolic dysfunction, pulmonary hypertension etc. Recommend thoracentesis for diagnostic purposes if not been done previously. - Time Time with patient: 15-25 minutes - CODE STATUS was discussed, patient remains full code. Surrogate decision-maker unchanged. Multiple medical problems were addressed. More than 50% of the time spent coordinating care, discussing management plans with involved caregivers. Management plans discussed with involved personnels. Medical decision making was of moderate to high complexity , patient's has multiple comorbidities. Medications reviewed and adjusted accordingly: Yes
--- NOTE | 2017-06-03 17:19 | PDOC PROGRESS REPORT ---
Subjective Progress Note for:: 06/03/17 Subjective:: Pt states that he is feeling better. Pt states that his appetite is about the same. Reason For Visit: AFIB WITH RVR THROMBOCYTOPENIA LACTIC ACIDOSIS Physical Exam Vital Signs: Temp Pulse Resp BP Pulse Ox 98.2 F 59 L 16 157/59 H 98 06/03/17 11:00 06/03/17 14:00 06/03/17 11:00 06/03/17 11:00 06/03/17 12:10 Intake & Output 06/02/17 06/03/17 06/04/17 06:59 06:59 06:59 Intake Total 880 1615 Output Total 2803 Balance 880 -1188 Weight 55.9 kg 54.9 kg General appearance: PRESENT: no acute distress, thin Head exam: PRESENT: atraumatic, normocephalic Eye exam: PRESENT: conjunctiva pink, EOMI. ABSENT: scleral icterus Ear exam: PRESENT: normal external ear exam Mouth exam: PRESENT: moist, tongue midline Neck exam: ABSENT: carotid bruit, JVD, lymphadenopathy, thyromegaly Respiratory exam: PRESENT: clear to auscultation nan. ABSENT: rales, rhonchi, wheezes Cardiovascular exam: PRESENT: RRR. ABSENT: diastolic murmur, rubs, systolic murmur Pulses: PRESENT: normal dorsalis pedis pul Vascular exam: PRESENT: normal capillary refill GI/Abdominal exam: PRESENT: normal bowel sounds, soft. ABSENT: distended, guarding, mass, organolmegaly, rebound, tenderness Rectal exam: PRESENT: deferred Extremities exam: PRESENT: full ROM. ABSENT: calf tenderness, clubbing, pedal edema Neurological exam: PRESENT: alert, awake, oriented to person, oriented to place , oriented to time, oriented to situation, CN II-XII grossly intact. ABSENT: motor sensory deficit Psychiatric exam: PRESENT: appropriate affect, normal mood. ABSENT: homicidal ideation, suicidal ideation Skin exam: PRESENT: dry, intact, warm. ABSENT: cyanosis, rash Results Laboratory Results: 06/03/17 04:52 06/02/17 05:05 06/03/17 04:52 WBC 8.0 D RBC 4.05 L Hgb 11.8 L D Hct 35.6 L MCV 88 MCH 29.1 MCHC 33.2 RDW 16.1 H Plt Count 37 L Impressions: Abdomen/Pelvis CT 05/29/17 00:00 IMPRESSION: Multiple bilateral renal calcifications as noted above most consistent with a combination of vascular calcifications and nonobstructing renal calculi. No definite ureteric calculi are identified. Thickening of the carrera of the colon at the level of the cecum and proximal ascending colon as noted above the possibility of a neoplastic process cannot be excluded. Colonoscopy may be of value for further evaluation. Moderate size bilateral pleural effusions with associated airspace consolidation which could represent atelectatic changes or pneumonic consolidations. Other findings as noted above Chest X-Ray 05/31/17 06:00 IMPRESSION: Small pleural effusions. Worsening atelectasis or developing pneumonia in the left lower lobe. Chest CT 06/02/17 00:00 IMPRESSION: Bilateral pleural effusions with partial atelectasis in the left lower lobe. Assessment & Plan - Diagnosis (1) Afib Qualifiers: Atrial fibrillation type: unspecified Qualified Code(s): I48.91 - Unspecified atrial fibrillation Is this a current diagnosis for this admission?: Yes Plan: Toprol (2) Lactic acidosis Is this a current diagnosis for this admission?: Yes Plan: Resolved (3) Chronic osteomyelitis Is this a current diagnosis for this admission?: Yes Plan: Patient's linezolid was discontinued due to thrombocytopenia. Orthopedics is recommending definitive amputation which can be done as outpatient. (4) Chronic pain Qualifiers: Is this a current diagnosis for this admission?: Yes Plan: Patient's home medications will need to be reconciled. (5) Thrombocytopenia Is this a current diagnosis for this admission?: Yes Plan: Secondary to the Linezolid. Resolving. Will continue to monitor. (6) ESRD (end stage renal disease) on dialysis Is this a current diagnosis for this admission?: Yes Plan: Continue nephrology (7) DNR (do not resuscitate) Is this a current diagnosis for this admission?: Yes - Time Time Spent with patient: 15-24 minutes
[2017-06-03] MEDS: MIRTAZAPINE 15 MG TABLET PO SCH (21:44)
[2017-06-04] MEDS ORDERED: NORMAL SALINE 1000 ML 1,000 ML IV PRN (05:00)
[2017-06-04] MEDS ORDERED: HEPARIN SOD (PORCINE) 1,000 UNIT/ML 10 ML VIAL IV PRN (05:00)
[2017-06-04] MEDS: OXYCODONE HCL IR 5 MG TABLET PO PRN ×2 (05:44→19:50)
[2017-06-04] MEDS: LEVOTHYROXINE SODIUM 0.025 MG TABLET PO SCH (05:44)
[2017-06-04] MEDS: LANSOPRAZOLE 30 MG TAB.RAP.DR PO SCH (05:44)
[2017-06-04 06:22] LABS: HEMATOCRIT 38.8 % (37.9-51.0); MEAN CORPUSCULAR HEMOGLOBIN 29.3 pg (27.0-33.4); MEAN CORPUSCULAR HGB CONC 33.4 g/dL (32.0-36.0); MEAN CORPUSCULAR VOLUME 88 fl (80-97); RED BLOOD COUNT 4.42 10^6/uL (4.35-5.55); RED CELL DISTRIBUTION WIDTH 16.1 % (11.5-14.0); WHITE BLOOD COUNT 12.3 10^3/uL (4.0-10.5)
[2017-06-04 06:43] LABS: ALANINE AMINOTRANSFERASE 49 U/L (21-72); ALBUMIN 3.9 g/dL (3.5-5.0); ALKALINE PHOSPHATASE 120 U/L (38-126); ANION GAP 16 (5-19); ASPARTATE AMINO TRANSFERASE 76 U/L (17-59); BILIRUBIN,DIRECT 0.5 mg/dL (0.0-0.4); BILIRUBIN,TOTAL 0.7 mg/dL (0.2-1.3); BLOOD UREA NITROGEN 19 mg/dL (7-20); CALCIUM 9.7 mg/dL (8.4-10.2); CARBON DIOXIDE 25 mmol/L (22-30); CHLORIDE 97 mmol/L (98-107); GLUCOSE 119 mg/dL (75-110); POTASSIUM 3.6 mmol/L (3.6-5.0); SODIUM 137.5 mmol/L (137-145); TOTAL PROTEIN 7.1 g/dL (6.3-8.2)
[2017-06-04 06:46] LABS: PLATELET COUNT 83 10^3/uL (150-450)
[2017-06-04 06:48] LABS: ABSOLUTE LYMPHOCYTES# (MANUAL) 2.2 10^3/uL (0.5-4.7); ABSOLUTE MONOCYTES # (MANUAL) 1.7 10^3/uL (0.1-1.4); ABSOLUTE NEUTROPHILS# (MANUAL) 8.4 10^3/uL (1.7-8.2); BASOPHILS % (MANUAL) 0 % (0-2); EOSINOPHILS % (MANUAL) 0 % (0-6); LYMPHOCYTES % (MANUAL) 18 % (13-45); MONOCYTES % (MANUAL) 14 % (3-13); SEGMENTED NEUTROPHILS % (MAN) 68 % (42-78); TOTAL CELLS COUNTED 100
[2017-06-04 06:49] LABS: ANISOCYTOSIS 1+; BURR CELLS SLIGHT; OVALOCYTES SLIGHT; PLATELET COMMENT DECREASED; POIKILOCYTOSIS SLIGHT; SCHISTOCYTES SLIGHT; TEAR DROP CELLS SLIGHT; TOXIC GRANULATION SLIGHT
--- NOTE | 2017-06-04 07:57 | PDOC PROGRESS REPORT ---
Subjective Progress Note for:: 06/04/17 Subjective:: Patient feeling better today. Asks when he can go home. Reason For Visit: AFIB WITH RVR THROMBOCYTOPENIA LACTIC ACIDOSIS Physical Exam Vital Signs: Temp Pulse Resp BP Pulse Ox 97.8 F 66 16 163/65 H 100 06/04/17 04:00 06/04/17 04:00 06/04/17 04:00 06/04/17 04:00 06/04/17 04:00 Intake & Output 06/03/17 06/04/17 06/05/17 06:59 06:59 06:59 Intake Total 1615 660 Output Total 2803 Balance -1188 660 Weight 54.9 kg 55.7 kg General appearance: PRESENT: no acute distress, thin Respiratory exam: PRESENT: unlabored, other - Continues to cough. Neurological exam: PRESENT: alert, awake Psychiatric exam: PRESENT: appropriate affect Skin exam: PRESENT: normal color Results Laboratory Results: 06/04/17 06:02 06/04/17 06:02 06/04/17 06/04/17 06:02 06:02 WBC 12.3 H RBC 4.42 Hgb 13.0 L Hct 38.8 MCV 88 MCH 29.3 MCHC 33.4 RDW 16.1 H Plt Count 83 L D Seg Neutrophils % Not Reportable Lymphocytes % Not Reportable Monocytes % Not Reportable Eosinophils % Not Reportable Basophils % Not Reportable Absolute Neutrophils Not Reportable Absolute Lymphocytes Not Reportable Absolute Monocytes Not Reportable Absolute Eosinophils Not Reportable Absolute Basophils Not Reportable Sodium 137.5 Potassium 3.6 Chloride 97 L Carbon Dioxide 25 Anion Gap 16 BUN 19 Creatinine 3.20 H Est GFR ( Amer) 23 L Est GFR (Non-Af Amer) 19 L Glucose 119 H Calcium 9.7 Magnesium 2.0 Total Bilirubin 0.7 AST 76 H ALT 49 Alkaline Phosphatase 120 Total Protein 7.1 Albumin 3.9 Impressions: Abdomen/Pelvis CT 05/29/17 00:00 IMPRESSION: Multiple bilateral renal calcifications as noted above most consistent with a combination of vascular calcifications and nonobstructing renal calculi. No definite ureteric calculi are identified. Thickening of the carrera of the colon at the level of the cecum and proximal ascending colon as noted above the possibility of a neoplastic process cannot be excluded. Colonoscopy may be of value for further evaluation. Moderate size bilateral pleural effusions with associated airspace consolidation which could represent atelectatic changes or pneumonic consolidations. Other findings as noted above Chest X-Ray 05/31/17 06:00 IMPRESSION: Small pleural effusions. Worsening atelectasis or developing pneumonia in the left lower lobe. Chest CT 06/02/17 00:00 IMPRESSION: Bilateral pleural effusions with partial atelectasis in the left lower lobe. Assessment & Plan - Diagnosis (1) Pancytopenia Is this a current diagnosis for this admission?: Yes Plan: Greatly improved today. Most likely this was from linesolid. PLT now >50, so OK to resume any anticoagulation that is needed. I will sign off, but am happy to see him again if needed. Please call with any questions or concerns.
[2017-06-04] MEDS: CALCIUM CARBONATE 500 MG TABLET PO SCH ×2 (09:52→17:28)
[2017-06-04] MEDS: CLONIDINE HCL 0.2 MG TABLET PO SCH ×2 (09:53→21:51)
[2017-06-04] MEDS: METOPROLOL SUCCINATE 25 MG TAB.SR.24H PO SCH ×2 (09:53→21:51)
[2017-06-04] MEDS: NICOTINE 14 MG/24 HR PATCH.TD24 TOP SCH (09:53)
[2017-06-04] MEDS: AMLODIPINE BESYLATE 10 MG TABLET PO SCH (09:54)
[2017-06-04] MEDS: FOLIC ACID/VITAMIN B COMP W-C CAPSULE PO SCH (09:54)
[2017-06-04] MEDS: ISOSORBIDE MONONITRATE 30 MG TAB.ER.24H PO SCH (09:54)
[2017-06-04] MEDS: OXYCODONE HCL SR 10 MG TABLET PO SCH ×2 (09:54→21:51)
--- NOTE | 2017-06-04 14:30 | PDOC PROGRESS REPORT ---
Subjective Progress Note for:: 06/04/17 Subjective:: No new issues this morning. Reason For Visit: AFIB WITH RVR THROMBOCYTOPENIA LACTIC ACIDOSIS Physical Exam Vital Signs: Temp Pulse Resp BP Pulse Ox 97.8 F 64 17 154/61 H 100 06/04/17 10:57 06/04/17 10:57 06/04/17 10:57 06/04/17 10:57 06/04/17 10:57 Intake & Output 06/03/17 06/04/17 06/05/17 06:59 06:59 06:59 Intake Total 1615 660 Output Total 2803 Balance -1188 660 Weight 54.9 kg 55.7 kg General appearance: PRESENT: no acute distress, thin, well-developed Head exam: PRESENT: atraumatic, normocephalic Eye exam: PRESENT: conjunctiva pink, EOMI. ABSENT: scleral icterus Ear exam: PRESENT: normal external ear exam Mouth exam: PRESENT: moist, tongue midline Neck exam: ABSENT: carotid bruit, JVD, lymphadenopathy, thyromegaly Respiratory exam: PRESENT: clear to auscultation nan. ABSENT: rales, rhonchi, wheezes Cardiovascular exam: PRESENT: RRR. ABSENT: diastolic murmur, rubs, systolic murmur Pulses: PRESENT: normal dorsalis pedis pul Vascular exam: PRESENT: normal capillary refill GI/Abdominal exam: PRESENT: normal bowel sounds, soft. ABSENT: distended, guarding, mass, organolmegaly, rebound, tenderness Rectal exam: PRESENT: deferred Extremities exam: ABSENT: calf tenderness, clubbing, pedal edema Neurological exam: PRESENT: alert, awake, oriented to person, oriented to place , oriented to time, oriented to situation, CN II-XII grossly intact. ABSENT: motor sensory deficit Psychiatric exam: PRESENT: appropriate affect, normal mood. ABSENT: homicidal ideation, suicidal ideation Skin exam: PRESENT: dry, intact, warm. ABSENT: cyanosis, rash Results Laboratory Results: 06/04/17 06:02 06/04/17 06:02 06/04/17 06/04/17 06:02 06:02 WBC 12.3 H RBC 4.42 Hgb 13.0 L Hct 38.8 MCV 88 MCH 29.3 MCHC 33.4 RDW 16.1 H Plt Count 83 L D Seg Neutrophils % Not Reportable Lymphocytes % Not Reportable Monocytes % Not Reportable Eosinophils % Not Reportable Basophils % Not Reportable Absolute Neutrophils Not Reportable Absolute Lymphocytes Not Reportable Absolute Monocytes Not Reportable Absolute Eosinophils Not Reportable Absolute Basophils Not Reportable Sodium 137.5 Potassium 3.6 Chloride 97 L Carbon Dioxide 25 Anion Gap 16 BUN 19 Creatinine 3.20 H Est GFR ( Amer) 23 L Est GFR (Non-Af Amer) 19 L Glucose 119 H Calcium 9.7 Magnesium 2.0 Total Bilirubin 0.7 AST 76 H ALT 49 Alkaline Phosphatase 120 Total Protein 7.1 Albumin 3.9 Impressions: Abdomen/Pelvis CT 05/29/17 00:00 IMPRESSION: Multiple bilateral renal calcifications as noted above most consistent with a combination of vascular calcifications and nonobstructing renal calculi. No definite ureteric calculi are identified. Thickening of the carrera of the colon at the level of the cecum and proximal ascending colon as noted above the possibility of a neoplastic process cannot be excluded. Colonoscopy may be of value for further evaluation. Moderate size bilateral pleural effusions with associated airspace consolidation which could represent atelectatic changes or pneumonic consolidations. Other findings as noted above Chest X-Ray 05/31/17 06:00 IMPRESSION: Small pleural effusions. Worsening atelectasis or developing pneumonia in the left lower lobe. Chest CT 06/02/17 00:00 IMPRESSION: Bilateral pleural effusions with partial atelectasis in the left lower lobe. Assessment & Plan - Diagnosis (1) Afib Qualifiers: Atrial fibrillation type: unspecified Qualified Code(s): I48.91 - Unspecified atrial fibrillation Is this a current diagnosis for this admission?: Yes Plan: Toprol. Speak to cardiology about anticoagulation. (2) Lactic acidosis Is this a current diagnosis for this admission?: Yes Plan: Resolved (3) Chronic osteomyelitis Is this a current diagnosis for this admission?: Yes Plan: Patient's linezolid was discontinued due to thrombocytopenia. Orthopedics is recommending definitive amputation which can be done as outpatient. (4) Chronic pain Qualifiers: Is this a current diagnosis for this admission?: Yes Plan: Patient's home medications will need to be reconciled. (5) Thrombocytopenia Is this a current diagnosis for this admission?: Yes Plan: Secondary to the Linezolid. Resolving. Will continue to monitor. (6) ESRD (end stage renal disease) on dialysis Is this a current diagnosis for this admission?: Yes Plan: Continue nephrology (7) DNR (do not resuscitate) Is this a current diagnosis for this admission?: Yes - Time Time Spent with patient: 15-24 minutes
--- NOTE | 2017-06-04 19:36 | PDOC PROGRESS REPORT ---
Subjective Progress Note for:: 06/04/17 Subjective:: I am seeing the patient during dialysis tonight. Patient denies any complaints. He said is feeling fine but he feels cold during dialysis. He is stable currently at dialysis. Reason For Visit: ESRD, pleural effusion Physical Exam Vital Signs: Temp Pulse Resp BP Pulse Ox 98.2 F 54 L 17 146/57 H 100 06/04/17 15:07 06/04/17 15:07 06/04/17 15:07 06/04/17 15:07 06/04/17 15:07 Intake & Output 06/03/17 06/04/17 06/05/17 06:59 06:59 06:59 Intake Total 1615 660 394 Output Total 2803 Balance -1188 660 394 Weight 54.9 kg 55.7 kg Vitals dialysis currently: Blood pressure 160/99, heart rate of 78, blood flow rate of 350 mL/min, dialysate flow rate of 800 mL/min. Exam: General appearance: PRESENT: no acute distress, cooperative, well-developed, well-nourished Head exam: PRESENT: atraumatic, normocephalic Eye exam: PRESENT: conjunctiva pink, PERRLA. ABSENT: scleral icterus Neck exam: ABSENT: JVD Respiratory exam: PRESENT: Diminished breath sounds. ABSENT: crackles, rales, rhonchi, unlabored, wheezes Cardiovascular exam: PRESENT: Regular rate rhythm -+S1, +S2. ABSENT: diastolic murmur, systolic murmur GI/Abdominal exam: PRESENT: normal bowel sounds, soft. ABSENT: guarding, mass, tenderness Extremities exam: ABSENT: No edema Neurological exam: PRESENT: Sleeping but arousable, oriented to person, place and time. Skin exam: PRESENT: dry, warm, Results Laboratory Results: 06/04/17 06:02 06/04/17 06:02 06/04/17 06/04/17 06:02 06:02 WBC 12.3 H RBC 4.42 Hgb 13.0 L Hct 38.8 MCV 88 MCH 29.3 MCHC 33.4 RDW 16.1 H Plt Count 83 L D Seg Neutrophils % Not Reportable Lymphocytes % Not Reportable Monocytes % Not Reportable Eosinophils % Not Reportable Basophils % Not Reportable Absolute Neutrophils Not Reportable Absolute Lymphocytes Not Reportable Absolute Monocytes Not Reportable Absolute Eosinophils Not Reportable Absolute Basophils Not Reportable Sodium 137.5 Potassium 3.6 Chloride 97 L Carbon Dioxide 25 Anion Gap 16 BUN 19 Creatinine 3.20 H Est GFR ( Amer) 23 L Est GFR (Non-Af Amer) 19 L Glucose 119 H Calcium 9.7 Magnesium 2.0 Total Bilirubin 0.7 AST 76 H ALT 49 Alkaline Phosphatase 120 Total Protein 7.1 Albumin 3.9 Impressions: Abdomen/Pelvis CT 05/29/17 00:00 IMPRESSION: Multiple bilateral renal calcifications as noted above most consistent with a combination of vascular calcifications and nonobstructing renal calculi. No definite ureteric calculi are identified. Thickening of the carrera of the colon at the level of the cecum and proximal ascending colon as noted above the possibility of a neoplastic process cannot be excluded. Colonoscopy may be of value for further evaluation. Moderate size bilateral pleural effusions with associated airspace consolidation which could represent atelectatic changes or pneumonic consolidations. Other findings as noted above Chest X-Ray 05/31/17 06:00 IMPRESSION: Small pleural effusions. Worsening atelectasis or developing pneumonia in the left lower lobe. Chest CT 06/02/17 00:00 IMPRESSION: Bilateral pleural effusions with partial atelectasis in the left lower lobe. Assessment & Plan - Diagnosis (1) ESRD (end stage renal disease) on dialysis Is this a current diagnosis for this admission?: Yes Plan: We will do dialysis today for 3 hours, using the patient's PermCath, with 3 potassium bath, blood flow rate of 350 mL per minute, dialysate flow rate of 800 mL per minute, ultrafiltration 2-3 L as tolerated, no heparin and no Procrit during dialysis. Patient will be monitored throughout dialysis treatment. (2) Anemia in chronic kidney disease (CKD) Is this a current diagnosis for this admission?: Yes Plan: We will give Procrit today during dialysis and as needed every treatment. Patient also received 2 unit pRBC during dialysis on 06/02. Currently he does not need Procrit. (3) Atrial fibrillation with rapid ventricular response Is this a current diagnosis for this admission?: Yes Plan: This is resolved spontaneously now to normal sinus rhythm. He is not a good candidate for anticoagulation due to risks of falls. (4) Pleural effusion Is this a current diagnosis for this admission?: Yes Plan: Moderate and bilateral on CT scan which could be secondary to mild congestive heart failure and minimal fluid overload due to missing dialysis treatments at times. This does not seem to be improving. CT scan of the chest showed persistent moderate bilateral pleural effusion. Patient does not seem to be clinically asymptomatic though. We are going to continue to take ultrafiltration and see if the pleural effusion will improve. I will repeat a chest x-ray tomorrow after dialysis today. Consideration will be a pulmonary consult. (5) Pancytopenia Is this a current diagnosis for this admission?: Yes Plan: Much improved after discontinuation of linezolid. (6) Chronic osteomyelitis Is this a current diagnosis for this admission?: Yes (7) Chronic pain Qualifiers: Is this a current diagnosis for this admission?: Yes (8) Hypertension Is this a current diagnosis for this admission?: Yes Plan: Blood pressure medications including clonidine and amlodipine should be held prior to dialysis treatment. (9) Hypoalbuminemia Is this a current diagnosis for this admission?: Yes Plan: Improved with albumin infusion. Patient is to improve nutritional intake. - Time Time with patient: 15-25 minutes
[2017-06-04] MEDS: MIRTAZAPINE 15 MG TABLET PO SCH (21:51)
[2017-06-05] MEDS: LANSOPRAZOLE 30 MG TAB.RAP.DR PO SCH (06:37)
[2017-06-05] MEDS: LEVOTHYROXINE SODIUM 0.025 MG TABLET PO SCH (06:37)
[2017-06-05] MEDS: OXYCODONE HCL IR 5 MG TABLET PO PRN (06:37)
--- NOTE | 2017-06-05 08:26 | RADIOLOGY REPORT (SQ) ---
EXAM DESCRIPTION: CHEST PA/LAT COMPLETED DATE/TIME: 06/05/2017 7:41 am REASON FOR STUDY: Pleural effusion follow-up COMPARISON: CT of chest 06/02/2017. Portable chest 05/31/2017. EXAM PARAMETERS: NUMBER OF VIEWS: two views TECHNIQUE: Digital Frontal and Lateral radiographic views of the chest acquired. RADIATION DOSE: NA LIMITATIONS: none FINDINGS: LUNGS AND PLEURA: Interval decrease in right upper lobe infiltrate. Interval decrease in right lower lobe and right middle lobe infiltrate. Persistent right pleural effusion. Persistent co nsolidation or pneumonia left lower lobe with left pleural effusion. Consolidation atelectasis left lower lobe. Blunting of costophrenic angles consistent with pleural effusions. MEDIASTINUM AND HILAR STRUCTURES: No masses or contour abnormalities. HEART AND VASCULAR STRUCTURES: Borderline cardiac size. Prominent pulmonary vasculature. BONES: No acute findings. HARDWARE: None in the chest. OTHER: No other significant finding. IMPRESSION: 1. Interval decrease in right upper lobe and right basilar infiltrate or pneumonia. Ri ght pleural effusion. Persistent consolidation or atelectasis left lower lobe with left pleural effu blessing. TECHNICAL DOCUMENTATION: JOB ID: [id number] [employer]- All Rights Reserved Reading location - IP/workstation name: [email or web address]
[2017-06-05] MEDS: FOLIC ACID/VITAMIN B COMP W-C CAPSULE PO SCH (10:02)
[2017-06-05] MEDS: CALCIUM CARBONATE 500 MG TABLET PO SCH ×2 (10:02→18:19)
[2017-06-05] MEDS: OXYCODONE HCL SR 10 MG TABLET PO SCH (10:03)
[2017-06-05] MEDS: METOPROLOL SUCCINATE 25 MG TAB.SR.24H PO SCH ×2 (10:03→22:52)
[2017-06-05] MEDS: CLONIDINE HCL 0.2 MG TABLET PO SCH ×2 (10:03→22:51)
[2017-06-05] MEDS: NICOTINE 14 MG/24 HR PATCH.TD24 TOP SCH (10:04)
[2017-06-05 10:32] LABS: ABSOLUTE EOSINOPHILS # (AUTO) 0.1 10^3/uL (0.0-0.6); ABSOLUTE MONOCYTES (AUTO) 2.5 10^3/uL (0.1-1.4); ABSOLUTE NEUT (AUTO) 8.5 10^3/uL (1.7-8.2); BASOPHILS % (AUTO) 0.3 % (0-2); EOSINOPHILS % (AUTO) 0.6 % (0-6); HEMATOCRIT 36.9 % (37.9-51.0); HEMOGLOBIN 12.4 g/dL (13.5-17.0); LYMPHOCYTES % (AUTO) 15.2 % (13-45); MEAN CORPUSCULAR HEMOGLOBIN 29.1 pg (27.0-33.4); MEAN CORPUSCULAR HGB CONC 33.4 g/dL (32.0-36.0); MEAN CORPUSCULAR VOLUME 87 fl (80-97); MONOCYTES % (AUTO) 18.9 % (3-13); PLATELET COUNT 162 10^3/uL (150-450); RED BLOOD COUNT 4.24 10^6/uL (4.35-5.55); RED CELL DISTRIBUTION WIDTH 16.1 % (11.5-14.0); TOTAL CELLS COUNTED % (AUTO) 100 %
--- NOTE | 2017-06-05 16:35 | PDOC PROGRESS REPORT ---
Subjective Progress Note for:: 06/05/17 Subjective:: Spoke to patients daughter who is concerned about pt's mental status. Pt states that he is feeling ok. Reason For Visit: AFIB WITH RVR THROMBOCYTOPENIA LACTIC ACIDOSIS Physical Exam Vital Signs: Temp Pulse Resp BP Pulse Ox 98.3 F 132 H 12 165/58 H 100 06/05/17 15:31 06/05/17 15:31 06/05/17 15:31 06/05/17 15:31 06/05/17 15:31 Intake & Output 06/04/17 06/05/17 06/06/17 06:59 06:59 06:59 Intake Total 660 662 180 Output Total 1100 Balance 660 -438 180 Weight 55.7 kg 50.2 kg General appearance: PRESENT: no acute distress, thin, well-developed Head exam: PRESENT: atraumatic, normocephalic Eye exam: PRESENT: conjunctiva pink, EOMI. ABSENT: scleral icterus Ear exam: PRESENT: normal external ear exam Mouth exam: PRESENT: moist, tongue midline Neck exam: ABSENT: carotid bruit, JVD, lymphadenopathy, thyromegaly Respiratory exam: PRESENT: decreased breath sounds. ABSENT: rales, rhonchi, wheezes Cardiovascular exam: PRESENT: RRR. ABSENT: diastolic murmur, rubs, systolic murmur Pulses: PRESENT: normal dorsalis pedis pul Vascular exam: PRESENT: normal capillary refill GI/Abdominal exam: PRESENT: normal bowel sounds, soft. ABSENT: distended, guarding, mass, organolmegaly, rebound, tenderness Rectal exam: PRESENT: deferred Extremities exam: PRESENT: full ROM. ABSENT: calf tenderness, clubbing, pedal edema Musculoskeletal exam: PRESENT: full ROM Neurological exam: PRESENT: alert, awake, oriented to person, oriented to place , oriented to time, oriented to situation, CN II-XII grossly intact. ABSENT: motor sensory deficit Psychiatric exam: PRESENT: appropriate affect, normal mood. ABSENT: homicidal ideation, suicidal ideation Skin exam: PRESENT: dry, intact, warm. ABSENT: cyanosis, rash Results Laboratory Results: 06/05/17 10:17 06/04/17 06:02 06/05/17 10:17 WBC 13.0 H RBC 4.24 L Hgb 12.4 L Hct 36.9 L MCV 87 MCH 29.1 MCHC 33.4 RDW 16.1 H Plt Count 162 Seg Neutrophils % 65.0 Lymphocytes % 15.2 Monocytes % 18.9 H Eosinophils % 0.6 Basophils % 0.3 Absolute Neutrophils 8.5 H Absolute Lymphocytes 2.0 Absolute Monocytes 2.5 H Absolute Eosinophils 0.1 Absolute Basophils 0.0 Impressions: Abdomen/Pelvis CT 05/29/17 00:00 IMPRESSION: Multiple bilateral renal calcifications as noted above most consistent with a combination of vascular calcifications and nonobstructing renal calculi. No definite ureteric calculi are identified. Thickening of the carrera of the colon at the level of the cecum and proximal ascending colon as noted above the possibility of a neoplastic process cannot be excluded. Colonoscopy may be of value for further evaluation. Moderate size bilateral pleural effusions with associated airspace consolidation which could represent atelectatic changes or pneumonic consolidations. Other findings as noted above Chest CT 06/02/17 00:00 IMPRESSION: Bilateral pleural effusions with partial atelectasis in the left lower lobe. Chest X-Ray 06/05/17 06:00 IMPRESSION: 1. Interval decrease in right upper lobe and right basilar infiltrate or pneumonia. Right pleural effusion. Persistent consolidation or atelectasis left lower lobe with left pleural effusion. Assessment & Plan - Diagnosis (1) Afib Qualifiers: Atrial fibrillation type: unspecified Qualified Code(s): I48.91 - Unspecified atrial fibrillation Is this a current diagnosis for this admission?: Yes Plan: Toprol. (2) Lactic acidosis Is this a current diagnosis for this admission?: Yes Plan: Resolved (3) Chronic osteomyelitis Is this a current diagnosis for this admission?: Yes Plan: Patient's linezolid was discontinued due to thrombocytopenia. Orthopedics is recommending definitive amputation which can be done as outpatient. (4) Chronic pain Qualifiers: Is this a current diagnosis for this admission?: Yes Plan: Patient's home medications will need to be reconciled. (5) Thrombocytopenia Is this a current diagnosis for this admission?: Yes Plan: Secondary to the Linezolid: Resolved (6) ESRD (end stage renal disease) on dialysis Is this a current diagnosis for this admission?: Yes Plan: Continue nephrology (7) DNR (do not resuscitate) Is this a current diagnosis for this admission?: Yes - Time Time Spent with patient: Less than 15 minutes - For discharge home tomorrow
[2017-06-05] MEDS: MIRTAZAPINE 15 MG TABLET PO SCH (22:52)
[2017-06-06] MEDS ORDERED: HEPARIN SOD (PORCINE) 1,000 UNIT/ML 10 ML VIAL IV PRN (05:00)
[2017-06-06] MEDS ORDERED: NORMAL SALINE 1000 ML 1,000 ML IV PRN (05:00)
[2017-06-06] MEDS: LANSOPRAZOLE 30 MG TAB.RAP.DR PO SCH (05:47)
[2017-06-06] MEDS: LEVOTHYROXINE SODIUM 0.025 MG TABLET PO SCH (05:47)
[2017-06-06 08:11] LABS: HEMATOCRIT 35.4 % (37.9-51.0); HEMOGLOBIN 11.6 g/dL (13.5-17.0); MEAN CORPUSCULAR HEMOGLOBIN 28.8 pg (27.0-33.4); MEAN CORPUSCULAR HGB CONC 32.7 g/dL (32.0-36.0); MEAN CORPUSCULAR VOLUME 88 fl (80-97); PLATELET COUNT 242 10^3/uL (150-450); RED BLOOD COUNT 4.02 10^6/uL (4.35-5.55); RED CELL DISTRIBUTION WIDTH 16.4 % (11.5-14.0); WHITE BLOOD COUNT 12.8 10^3/uL (4.0-10.5)
[2017-06-06 08:38] LABS: ABSOLUTE LYMPHOCYTES# (MANUAL) 1.2 10^3/uL (0.5-4.7); ABSOLUTE MONOCYTES # (MANUAL) 2.4 10^3/uL (0.1-1.4); ABSOLUTE NEUTROPHILS# (MANUAL) 9.2 10^3/uL (1.7-8.2); BASOPHILS % (MANUAL) 0 % (0-2); EOSINOPHILS % (MANUAL) 0 % (0-6); HYPOCHROMASIA SLIGHT; LYMPHOCYTES % (MANUAL) 9 % (13-45); MONOCYTES % (MANUAL) 19 % (3-13); PLATELET COMMENT ADEQUATE; POLYCHROMASIA 2+; SEGMENTED NEUTROPHILS % (MAN) 72 % (42-78); TOTAL CELLS COUNTED 100; TOXIC GRANULATION SLIGHT
[2017-06-06 08:55] LABS: ALANINE AMINOTRANSFERASE 48 U/L (21-72); ALBUMIN 3.1 g/dL (3.5-5.0); ALKALINE PHOSPHATASE 140 U/L (38-126); ANION GAP 13 (5-19); ASPARTATE AMINO TRANSFERASE 35 U/L (17-59); BILIRUBIN,DIRECT 0.8 mg/dL (0.0-0.4); BILIRUBIN,TOTAL 0.8 mg/dL (0.2-1.3); BLOOD UREA NITROGEN 26 mg/dL (7-20); CALCIUM 8.8 mg/dL (8.4-10.2); CARBON DIOXIDE 26 mmol/L (22-30); CHLORIDE 99 mmol/L (98-107); GLUCOSE 141 mg/dL (75-110); POTASSIUM 3.2 mmol/L (3.6-5.0); SODIUM 137.9 mmol/L (137-145); TOTAL PROTEIN 6.3 g/dL (6.3-8.2)
--- NOTE | 2017-06-06 13:00 | PDOC PROGRESS REPORT ---
Subjective Progress Note for:: 06/06/17 Subjective:: Patient states that he feels tired. Nurse states that she got him up out of bed to chair this morning Reason For Visit: AFIB WITH RVR THROMBOCYTOPENIA LACTIC ACIDOSIS Physical Exam Vital Signs: Temp Pulse Resp BP Pulse Ox 98.8 F 70 17 169/58 H 100 06/06/17 11:01 06/06/17 11:01 06/06/17 11:01 06/06/17 11:01 06/06/17 11:01 Intake & Output 06/05/17 06/06/17 06/07/17 06:59 06:59 06:59 Intake Total 662 300 Output Total 1100 Balance -438 300 Weight 50.2 kg 49.1 kg General appearance: PRESENT: no acute distress, thin, well-developed Head exam: PRESENT: atraumatic, normocephalic Eye exam: PRESENT: conjunctiva pink, EOMI. ABSENT: scleral icterus Ear exam: PRESENT: normal external ear exam Mouth exam: PRESENT: moist, tongue midline Neck exam: ABSENT: carotid bruit, JVD, lymphadenopathy, thyromegaly Respiratory exam: PRESENT: clear to auscultation nan. ABSENT: rales, rhonchi, wheezes Cardiovascular exam: PRESENT: irregular rhythm Pulses: PRESENT: normal dorsalis pedis pul GI/Abdominal exam: PRESENT: normal bowel sounds, soft. ABSENT: distended, guarding, mass, organolmegaly, rebound, tenderness Rectal exam: PRESENT: deferred Extremities exam: PRESENT: other - Upper and lower extremity muscle wasting Musculoskeletal exam: PRESENT: full ROM Neurological exam: PRESENT: alert, awake, oriented to person, oriented to place Psychiatric exam: PRESENT: appropriate affect, normal mood. ABSENT: homicidal ideation, suicidal ideation Skin exam: PRESENT: dry, intact, warm. ABSENT: cyanosis, rash Results Laboratory Results: 06/06/17 08:04 06/06/17 08:04 06/06/17 06/06/17 08:04 08:04 WBC 12.8 H RBC 4.02 L Hgb 11.6 L Hct 35.4 L MCV 88 MCH 28.8 MCHC 32.7 RDW 16.4 H Plt Count 242 Seg Neutrophils % Not Reportable Lymphocytes % Not Reportable Monocytes % Not Reportable Eosinophils % Not Reportable Basophils % Not Reportable Absolute Neutrophils Not Reportable Absolute Lymphocytes Not Reportable Absolute Monocytes Not Reportable Absolute Eosinophils Not Reportable Absolute Basophils Not Reportable Sodium 137.9 Potassium 3.2 L Chloride 99 Carbon Dioxide 26 Anion Gap 13 BUN 26 H Creatinine 4.08 H Est GFR ( Amer) 18 L Est GFR (Non-Af Amer) 15 L Glucose 141 H Calcium 8.8 Total Bilirubin 0.8 AST 35 ALT 48 Alkaline Phosphatase 140 H Total Protein 6.3 Albumin 3.1 L Impressions: Abdomen/Pelvis CT 05/29/17 00:00 IMPRESSION: Multiple bilateral renal calcifications as noted above most consistent with a combination of vascular calcifications and nonobstructing renal calculi. No definite ureteric calculi are identified. Thickening of the carrera of the colon at the level of the cecum and proximal ascending colon as noted above the possibility of a neoplastic process cannot be excluded. Colonoscopy may be of value for further evaluation. Moderate size bilateral pleural effusions with associated airspace consolidation which could represent atelectatic changes or pneumonic consolidations. Other findings as noted above Chest CT 06/02/17 00:00 IMPRESSION: Bilateral pleural effusions with partial atelectasis in the left lower lobe. Chest X-Ray 06/05/17 06:00 IMPRESSION: 1. Interval decrease in right upper lobe and right basilar infiltrate or pneumonia. Right pleural effusion. Persistent consolidation or atelectasis left lower lobe with left pleural effusion. Assessment & Plan - Diagnosis (1) Delirium Is this a current diagnosis for this admission?: Yes Plan: We will obtain CT of head to evaluate for change to explain for patient's increased sleepiness. Will discontinue Remeron and decrease patient's pain medication (2) Afib Qualifiers: Atrial fibrillation type: unspecified Qualified Code(s): I48.91 - Unspecified atrial fibrillation Is this a current diagnosis for this admission?: Yes Plan: [facility]. Spoke with Dr. Ulloa who states that patient currently is not a candidate for anticoagulation. Patient did receive 2 units of packed RBCs during dialysis Dr. Ulloa recommends that anticoagulation be readdressed by PCP after patient has been out of hospital in stable for several week. (3) Lactic acidosis Is this a current diagnosis for this admission?: Yes Plan: Resolved (4) Chronic osteomyelitis Is this a current diagnosis for this admission?: Yes Plan: Patient's linezolid was discontinued due to thrombocytopenia. Orthopedics is recommending definitive amputation which can be done as outpatient. (5) Chronic pain Qualifiers: Is this a current diagnosis for this admission?: Yes Plan: Pain medication has been decreased (6) Thrombocytopenia Is this a current diagnosis for this admission?: Yes Plan: Secondary to the Linezolid: Resolved (7) ESRD (end stage renal disease) on dialysis Is this a current diagnosis for this admission?: Yes Plan: Continue nephrology (8) DNR (do not resuscitate) Is this a current diagnosis for this admission?: No Plan: Patient told staff prior to my arrival that he wants to be full code - Time Time Spent with patient: 15-24 minutes
--- NOTE | 2017-06-06 13:24 | RADIOLOGY REPORT (SQ) ---
EXAM DESCRIPTION: CT HEAD WITHOUT COMPLETED DATE/TIME: 06/06/2017 1:11 pm REASON FOR STUDY: delirium I48.0 PAROXYSMAL ATRIAL FIBRILLATION R73.9 HYPERGLYCEMIA, UNSPECIFIED R 07.89 OTHER CHEST PAIN COMPARISON: 09/25/2016 TECHNIQUE: Axial images acquired through the brain without intravenous contrast. Images reviewed wi th bone, brain and subdural windows. Images stored on PACS. All CT scanners at this facility use dose modulation, iterative reconstruction, and/or weight based d osing when appropriate to reduce radiation dose to as low as reasonably achievable (ALARA). [facility]: Dose Right [facility]: CareDose [facility]: Dose Right [facility]: Teradose 4D [facility]: [employer] RADIATION DOSE: CT Rad equipment meets quality standard of care and radiation dose reduction techniq ues were employed. CTDIvol: 49.0 mGy. DLP: 783 mGy-cm. mGy. LIMITATIONS: None. FINDINGS: VENTRICLES: Normal size and contour. CEREBRUM: No masses. No hemorrhage. No midline shift. No evidence for acute infarction. Areas of l ow density in the white matter most likely chronic small vessel ischemic changes. CEREBELLUM: No masses. No hemorrhage. No alteration of density. No evidence for acute infarction. EXTRAAXIAL SPACES: No fluid collections. No masses. ORBITS AND GLOBE: No intra- or extraconal masses. Normal contour of globe without masses. CALVARIUM: No fracture. PARANASAL SINUSES: Air-fluid levels are present in the maxillary sinuses. SOFT TISSUES: No mass or hematoma. OTHER: No other significant finding. IMPRESSION: 1. CHRONIC MICROVASCULAR ISCHEMIA. NO ACUTE IMAGING FINDINGS IN THE BRAIN. 2. MAXILLARY SINUS DISEASE. EVIDENCE OF ACUTE STROKE: NO. COMMENT: Quality ID # [id number]: Final reports with documentation of one or more dose reduction techniques (e.g., Automated exposure control, adjustment of the mA and/or kV according to patient size, use of iterative reconstruction technique) TECHNICAL DOCUMENTATION: JOB ID: [id number] [employer]- All Rights Reserved Reading location - IP/workstation name: [email or web address]
--- NOTE | 2017-06-06 15:34 | PDOC PROGRESS REPORT ---
Subjective Progress Note for:: 06/06/17 Subjective:: I saw the patient during initiation of dialysis this afternoon. He tells me is not doing very well today because of back pain. Otherwise he does not have any other complaints. Reason For Visit: ESRD Physical Exam Vital Signs: Temp Pulse Resp BP Pulse Ox 98.8 F 70 17 169/58 H 100 06/06/17 11:01 06/06/17 11:01 06/06/17 11:01 06/06/17 11:01 06/06/17 11:01 Intake & Output 06/05/17 06/06/17 06/07/17 06:59 06:59 06:59 Intake Total 662 300 Output Total 1100 Balance -438 300 Weight 50.2 kg 49.1 kg Vitals during dialysis: Blood pressure 160/65, heart rate of 69, blood flow rate of 350 mL/min, dialysate flow rate of 800 mL/min. Exam: General appearance: PRESENT: no acute distress, cooperative, thin and underweight Head exam: PRESENT: atraumatic, normocephalic Eye exam: PRESENT: conjunctiva slightly pale, PERRLA. ABSENT: scleral icterus Neck exam: ABSENT: JVD Respiratory exam: PRESENT: Normal breath sounds. ABSENT: crackles, rales, rhonchi, unlabored, wheezes Cardiovascular exam: PRESENT: Regular rate rhythm -+S1, +S2. ABSENT: diastolic murmur, systolic murmur GI/Abdominal exam: PRESENT: normal bowel sounds, soft. ABSENT: guarding, mass, tenderness Extremities exam: ABSENT: No edema Neurological exam: PRESENT: alert, awake, oriented to person, place and time. Skin exam: PRESENT: dry, warm, Results Laboratory Results: 06/06/17 08:04 06/06/17 08:04 06/06/17 06/06/17 08:04 08:04 WBC 12.8 H RBC 4.02 L Hgb 11.6 L Hct 35.4 L MCV 88 MCH 28.8 MCHC 32.7 RDW 16.4 H Plt Count 242 Seg Neutrophils % Not Reportable Lymphocytes % Not Reportable Monocytes % Not Reportable Eosinophils % Not Reportable Basophils % Not Reportable Absolute Neutrophils Not Reportable Absolute Lymphocytes Not Reportable Absolute Monocytes Not Reportable Absolute Eosinophils Not Reportable Absolute Basophils Not Reportable Sodium 137.9 Potassium 3.2 L Chloride 99 Carbon Dioxide 26 Anion Gap 13 BUN 26 H Creatinine 4.08 H Est GFR ( Amer) 18 L Est GFR (Non-Af Amer) 15 L Glucose 141 H Calcium 8.8 Total Bilirubin 0.8 AST 35 ALT 48 Alkaline Phosphatase 140 H Total Protein 6.3 Albumin 3.1 L Impressions: Abdomen/Pelvis CT 05/29/17 00:00 IMPRESSION: Multiple bilateral renal calcifications as noted above most consistent with a combination of vascular calcifications and nonobstructing renal calculi. No definite ureteric calculi are identified. Thickening of the carrera of the colon at the level of the cecum and proximal ascending colon as noted above the possibility of a neoplastic process cannot be excluded. Colonoscopy may be of value for further evaluation. Moderate size bilateral pleural effusions with associated airspace consolidation which could represent atelectatic changes or pneumonic consolidations. Other findings as noted above Chest CT 06/02/17 00:00 IMPRESSION: Bilateral pleural effusions with partial atelectasis in the left lower lobe. Chest X-Ray 06/05/17 06:00 IMPRESSION: 1. Interval decrease in right upper lobe and right basilar infiltrate or pneumonia. Right pleural effusion. Persistent consolidation or atelectasis left lower lobe with left pleural effusion. Head CT 06/06/17 00:00 IMPRESSION: 1. CHRONIC MICROVASCULAR ISCHEMIA. NO ACUTE IMAGING FINDINGS IN THE BRAIN. 2. MAXILLARY SINUS DISEASE. EVIDENCE OF ACUTE STROKE: NO. Assessment & Plan - Diagnosis (1) ESRD (end stage renal disease) on dialysis Is this a current diagnosis for this admission?: Yes Plan: We will do dialysis today for 3 hours for as long as patient stays in treatment , using the patient's PermCath, with 3 potassium bath, blood flow rate of 350 mL per minute, dialysate flow rate of 800 mL per minute, ultrafiltration as tolerated, no heparin and no Procrit during dialysis . Since patient is complaining of pain we will ask for pain medication from his floor nurse and hopefully he will stay with the whole 3 hour treatment. (2) Anemia in chronic kidney disease (CKD) Is this a current diagnosis for this admission?: Yes Plan: We will give Procrit today during dialysis and as needed every treatment. Patient also received 2 unit pRBC during dialysis on 06/02. Currently he does not need Procrit. (3) Atrial fibrillation with rapid ventricular response Is this a current diagnosis for this admission?: Yes Plan: This is resolved spontaneously now to normal sinus rhythm. He is not a good candidate for anticoagulation due to risks of falls. (4) Pleural effusion Is this a current diagnosis for this admission?: Yes Plan: Moderate and bilateral on CT scan which could be secondary to mild congestive heart failure and minimal fluid overload due to missing dialysis treatments at times. Repeat chest x-ray yesterday showed some improvement of the pleural effusion. This is most likely secondary to pulmonary vascular congestion then the possibility of CHF given that it improved with increased ultrafiltration during dialysis. We will defer any pulmonary consult nor intervention for that. (5) Pancytopenia Is this a current diagnosis for this admission?: Yes Plan: Much improved after discontinuation of linezolid. Platelets are now within normal limits. WBC and hemoglobins are also improved. (6) Chronic osteomyelitis Is this a current diagnosis for this admission?: Yes (7) Chronic pain Qualifiers: Is this a current diagnosis for this admission?: Yes (8) Hypertension Is this a current diagnosis for this admission?: Yes Plan: Blood pressure medications including clonidine and amlodipine should be held prior to dialysis treatment. (9) Hypoalbuminemia Is this a current diagnosis for this admission?: Yes Plan: Improved with albumin infusion. Patient is to improve nutritional intake. - Time Time with patient: 15-25 minutes
[2017-06-06] MEDS: ISOSORBIDE MONONITRATE 30 MG TAB.ER.24H PO SCH (18:12)
[2017-06-06] MEDS: CLONIDINE HCL 0.2 MG TABLET PO SCH ×2 (18:13→21:37)
[2017-06-06] MEDS: AMLODIPINE BESYLATE 10 MG TABLET PO SCH (18:13)
[2017-06-06] MEDS: FOLIC ACID/VITAMIN B COMP W-C CAPSULE PO SCH (18:13)
[2017-06-06] MEDS: METOPROLOL SUCCINATE 25 MG TAB.SR.24H PO SCH ×2 (18:13→21:37)
[2017-06-06] MEDS: NICOTINE 14 MG/24 HR PATCH.TD24 TOP SCH (18:14)
[2017-06-06] MEDS: CALCIUM CARBONATE 500 MG TABLET PO SCH ×2 (18:14→18:19)
[2017-06-06] MEDS: OXYCODONE HCL SR 10 MG TABLET PO SCH (18:18)
[2017-06-07] MEDS: LANSOPRAZOLE 30 MG TAB.RAP.DR PO SCH (05:53)
[2017-06-07] MEDS: LEVOTHYROXINE SODIUM 0.025 MG TABLET PO SCH (05:53)
[2017-06-07 06:03] LABS: HEMATOCRIT 33.4 % (37.9-51.0); HEMOGLOBIN 10.9 g/dL (13.5-17.0); MEAN CORPUSCULAR HEMOGLOBIN 28.7 pg (27.0-33.4); MEAN CORPUSCULAR HGB CONC 32.7 g/dL (32.0-36.0); MEAN CORPUSCULAR VOLUME 88 fl (80-97); PLATELET COUNT 281 10^3/uL (150-450); RED CELL DISTRIBUTION WIDTH 16.4 % (11.5-14.0); WHITE BLOOD COUNT 14.5 10^3/uL (4.0-10.5)
[2017-06-07 06:08] LABS: ALANINE AMINOTRANSFERASE 39 U/L (21-72); ALBUMIN 3.1 g/dL (3.5-5.0); ALKALINE PHOSPHATASE 131 U/L (38-126); ANION GAP 10 (5-19); ASPARTATE AMINO TRANSFERASE 28 U/L (17-59); BILIRUBIN,DIRECT 0.4 mg/dL (0.0-0.4); BILIRUBIN,TOTAL 0.6 mg/dL (0.2-1.3); BLOOD UREA NITROGEN 20 mg/dL (7-20); CALCIUM 8.1 mg/dL (8.4-10.2); CARBON DIOXIDE 29 mmol/L (22-30); CHLORIDE 98 mmol/L (98-107); GLUCOSE 123 mg/dL (75-110); POTASSIUM 3.4 mmol/L (3.6-5.0); SODIUM 136.7 mmol/L (137-145); TOTAL PROTEIN 6.2 g/dL (6.3-8.2)
[2017-06-07 07:14] LABS: ABSOLUTE LYMPHOCYTES# (MANUAL) 1.3 10^3/uL (0.5-4.7); ANISOCYTOSIS 1+; BASOPHILS % (MANUAL) 0 % (0-2); EOSINOPHILS % (MANUAL) 1 % (0-6); LYMPHOCYTES % (MANUAL) 9 % (13-45); MONOCYTES % (MANUAL) 14 % (3-13); SEGMENTED NEUTROPHILS % (MAN) 76 % (42-78); TOTAL CELLS COUNTED 100
[2017-06-07 07:15] LABS: POLYCHROMASIA SLIGHT
[2017-06-07 07:16] LABS: SCHISTOCYTES SLIGHT; STOMATOCYTES SLIGHT
[2017-06-07 07:17] LABS: BURR CELLS SLIGHT; PLATELET COMMENT ADEQUATE
[2017-06-07] MEDS: NICOTINE 14 MG/24 HR PATCH.TD24 TOP SCH (09:36)
[2017-06-07] MEDS: CALCIUM CARBONATE 500 MG TABLET PO SCH (09:36)
[2017-06-07] MEDS: OXYCODONE HCL SR 10 MG TABLET PO SCH (09:36)
[2017-06-07] MEDS: CLONIDINE HCL 0.2 MG TABLET PO SCH (09:37)
[2017-06-07] MEDS: FOLIC ACID/VITAMIN B COMP W-C CAPSULE PO SCH (09:37)
[2017-06-07] MEDS: METOPROLOL SUCCINATE 25 MG TAB.SR.24H PO SCH (09:38)
[2017-06-07 12:10] VITALS: BP 129/45
--- NOTE | 2017-06-07 13:29 | PDOC DISCHARGE SUMMARY ---
General - Admit/Disc Date/PCP Admission Date/Primary Care Provider: 05/31/17 08:07 ANA MCMANUS MD Discharge Date: 06/07/17 - Discharge Diagnosis (1) Afib Is this a current diagnosis for this admission?: Yes Summary: Pt was admitted to the hospital due to tachycardia which was found to be A. fib. Patient was seen by cardiology and was placed on metoprolol. Patient's heart rate has been under better control. Patient was discharged home on aspirin only due to patient's comorbidities. Patient did not developed pancytopenia secondary to the nasal lid and cardiology did not want to place patient on anticoagulation at this time. (2) Delirium Is this a current diagnosis for this admission?: Yes Summary: Acute metabolic encephalopathy: Resolved. Patient has CT of head demonstrated no significant (3) Lactic acidosis Is this a current diagnosis for this admission?: Yes Summary: Secondary to ischemia related to tacky arrhythmia: Resolved (4) Chronic osteomyelitis Is this a current diagnosis for this admission?: Yes Summary: Pt will follow-up with orthopedic surgeon as outpatient. (5) Chronic pain Is this a current diagnosis for this admission?: Yes Summary: His pain medication was adjusted due to patient being more sleepy. (6) Thrombocytopenia Is this a current diagnosis for this admission?: Yes Summary: Secondary to a nasal lid: Resolved. (7) ESRD (end stage renal disease) on dialysis Is this a current diagnosis for this admission?: Yes Summary: Pt will continue with dialysis (8) Bilateral pleural effusion Is this a current diagnosis for this admission?: Yes Summary: Patient will need to continue with dialysis in hopes that this will resolve pleural effusions (9) DNR (do not resuscitate) Is this a current diagnosis for this admission?: No Summary: Patient originally was DNR however patient change CODE STATUS to full code. - Additional Information Resuscitation Status: Full Code Discharge Diet: Cardiac, Other (Comments) - renal diet Prescriptions: Oxycodone HCl [Oxycontin Sr 10 mg Tablet] 10 mg PO DAILY #5 tab.sr.12h Home Medications: Amlodipine Besylate [Norvasc 10 mg Tablet] 10 mg PO SUMOWEFR@1000 05/27/17 Aspirin [Aspirin 81 mg Chewable Tablet] 81 mg PO DAILY 05/27/17 Calcium Carbonate [Os-Carlos Manuel 500 mg Tablet (Oyster-Shell)] 1,250 mg PO BID Clonidine HCl [Catapres 0.2 mg Tablet] 0.2 mg PO Q12 05/27/17 Folic Acid/Vit B Complex and C [Nephro-Anthony Tablet] 1 tab PO DAILY 05/27/17 Isosorbide Mononitrate [Imdur 30 mg Tablet.er] 30 mg PO SUMOWEFR@1000 05/27/17 Levothyroxine Sodium [Synthroid 0.025 mg Tablet] 25 mcg PO DAILY 05/27/17 Mirtazapine [Remeron 15 mg Tablet] 15 mg PO QHS 05/27/17 Metoprolol Succinate [Toprol Xl 25 mg Tab.sr] 25 mg PO Q12 tab.sr.24h 06/07/17 Oxycodone HCl [Oxycontin Sr 10 mg Tablet] 10 mg PO DAILY #5 tab.sr.12h 06/07/17 History of Present Illness Patient complains of: Fast heart rate History of Present Illness: DANIEL MAGUIRE JR is a 67 year old male resents to the hospital with complaint of fast heart rate. Patient was at dialysis when he was noted to have a fast heart rate. Patient was brought to the emergency room and found to be in A. fib. Patient's heart rate currently at time of my encounter was in the 80s. Patient's daughter was at bedside stated that patient did not want to come the hospital however she had to convince him to come to the hospital. Patient denied any complaints of shortness of breath or nausea vomiting or chest pain. Daughter reports that patient's great toe is healing well without any problems. Hospital Course Hospital Course: 67-year-old male presents with complaint of rapid heart rate. Patient was found to be in A. fib. She was evaluated by cardiology where he is placed on metoprolol and heart rate has been under good control. Patient was found on CT and x-rays to have pleural effusions which patient has been receiving dialysis to see if pleural effusions will resolve. Renal has commented that they will increase patient's duration of dialysis. Patient is also missed dialysis appointments as well. Daughter had called due to patient being slightly confused therefore CT of head was obtained and no abnormalities were found. Patient's pain medication was decreased because he was sleeping more and patient 's mentation has improved. Patient was noted to have pancytopenia secondary to Linezolid. Linezolid was discontinued and patient's pancytopenia has resolved. Patient did receive 2 units of packed RBCs during hospitalization. Patient was not placed on oral anticoagulation due to patient's comorbidities which was a recommendation from cardiology. Patient was told to continue baby aspirin. Cardiology recommended that anticoagulation be discussed as outpatient was patient has been stable for a few weeks. Physical Exam Vital Signs: Temp Pulse Resp BP Pulse Ox 97.8 F 57 L 16 129/45 H 99 06/07/17 11:10 06/07/17 11:10 06/07/17 11:10 06/07/17 11:10 06/07/17 11:10 Intake & Output 06/06/17 06/07/17 06/08/17 06:59 06:59 07:59 Intake Total 300 591 Balance 300 591 Weight 49.1 kg 51.2 kg General appearance: PRESENT: no acute distress, well-developed, well-nourished Head exam: PRESENT: atraumatic, normocephalic Eye exam: PRESENT: conjunctiva pink, EOMI. ABSENT: scleral icterus Ear exam: PRESENT: normal external ear exam Mouth exam: PRESENT: moist, tongue midline Neck exam: ABSENT: carotid bruit, JVD, lymphadenopathy, thyromegaly Respiratory exam: PRESENT: clear to auscultation nan. ABSENT: rales, rhonchi, wheezes Cardiovascular exam: PRESENT: RRR. ABSENT: diastolic murmur, rubs, systolic murmur Pulses: PRESENT: normal dorsalis pedis pul Vascular exam: PRESENT: normal capillary refill GI/Abdominal exam: PRESENT: normal bowel sounds, soft. ABSENT: distended, guarding, mass, organolmegaly, rebound, tenderness Rectal exam: PRESENT: deferred Extremities exam: PRESENT: full ROM. ABSENT: calf tenderness, clubbing, pedal edema Musculoskeletal exam: PRESENT: full ROM Neurological exam: PRESENT: alert, awake, oriented to person, oriented to place , oriented to time, oriented to situation, CN II-XII grossly intact. ABSENT: motor sensory deficit Psychiatric exam: PRESENT: appropriate affect, normal mood. ABSENT: homicidal ideation, suicidal ideation Skin exam: PRESENT: dry, intact, warm. ABSENT: cyanosis, rash Results Laboratory Results: 06/07/17 05:49 06/07/17 05:49 06/07/17 06/07/17 05:49 05:49 WBC 14.5 H RBC 3.80 L Hgb 10.9 L Hct 33.4 L MCV 88 MCH 28.7 MCHC 32.7 RDW 16.4 H Plt Count 281 Seg Neutrophils % Not Reportable Lymphocytes % Not Reportable Monocytes % Not Reportable Eosinophils % Not Reportable Basophils % Not Reportable Absolute Neutrophils Not Reportable Absolute Lymphocytes Not Reportable Absolute Monocytes Not Reportable Absolute Eosinophils Not Reportable Absolute Basophils Not Reportable Sodium 136.7 L Potassium 3.4 L Chloride 98 Carbon Dioxide 29 Anion Gap 10 BUN 20 Creatinine 2.92 H Est GFR ( Amer) 26 L Est GFR (Non-Af Amer) 22 L Glucose 123 H Calcium 8.1 L Total Bilirubin 0.6 AST 28 ALT 39 Alkaline Phosphatase 131 H Total Protein 6.2 L Albumin 3.1 L Impressions: Abdomen/Pelvis CT 05/29/17 00:00 IMPRESSION: Multiple bilateral renal calcifications as noted above most consistent with a combination of vascular calcifications and nonobstructing renal calculi. No definite ureteric calculi are identified. Thickening of the carrera of the colon at the level of the cecum and proximal ascending colon as noted above the possibility of a neoplastic process cannot be excluded. Colonoscopy may be of value for further evaluation. Moderate size bilateral pleural effusions with associated airspace consolidation which could represent atelectatic changes or pneumonic consolidations. Other findings as noted above Chest CT 06/02/17 00:00 IMPRESSION: Bilateral pleural effusions with partial atelectasis in the left lower lobe. Chest X-Ray 06/05/17 06:00 IMPRESSION: 1. Interval decrease in right upper lobe and right basilar infiltrate or pneumonia. Right pleural effusion. Persistent consolidation or atelectasis left lower lobe with left pleural effusion. Head CT 06/06/17 00:00 IMPRESSION: 1. CHRONIC MICROVASCULAR ISCHEMIA. NO ACUTE IMAGING FINDINGS IN THE BRAIN. 2. MAXILLARY SINUS DISEASE. EVIDENCE OF ACUTE STROKE: NO. Qualifiers - * PATEINT BEING DISCHARGED WITH ANY OF THE FOLLOWING DIAGNOSIS?: No Plan Time Spent: Greater than 30 Minutes
--- NOTE | 2017-06-07 17:17 | PDOC PROGRESS REPORT ---
Subjective Progress Note for:: 06/04/17 Subjective:: No new complaints from the patient except feeling very weak and tired. No new complaints today as well. Patient to have dialysis today. Oncologist report reviewed. Patient noted resting in bed without any significant complaints.. Patient remains quite debilitated. Pt is denying any chest arm or neck discomfort. Patient denying any PND, orthopnea. Patient denied any sustained palpitations, dizziness, syncope, near syncope. Patient denying any fever chills. Patient denying any other significant discomfort. Patient is maintaining sinus rhythm. Patient had spontaneously converted from atrial fibrillation on 05/28/2017. Review of systems: Rest review of systems negative. Medications: Medications have been reviewed. Reason For Visit: AFIB WITH RVR THROMBOCYTOPENIA LACTIC ACIDOSIS Physical Exam Vital Signs: Temp Pulse Resp BP Pulse Ox 98.2 F 54 L 17 146/57 H 100 06/04/17 15:07 06/04/17 15:07 06/04/17 15:07 06/04/17 15:07 06/04/17 15:07 Intake & Output 06/03/17 06/04/17 06/05/17 06:59 06:59 06:59 Intake Total 1615 660 394 Output Total 2803 Balance -1188 660 394 Weight 54.9 kg 55.7 kg Exam: GENERAL: Markedly underweight and cachectic but in no acute distress. Alert and oriented x3 HEAD: Atraumatic, normocephalic. EYES: Pupils equal round and reactive to light, extraocular movements intact, sclera anicteric, conjunctiva are normal. ENT: TMs normal, nares patent, oropharynx clear without exudates. Moist mucous membranes. No oral ulcerations or bleeding gums noted NECK: supple without lymphadenopathy. Trachea is central. No cervical or axillary lymphadenopathy noted. Carotids are 2+, JVD WNL LUNGS: Respiration seems nonlabored, no significant accessory muscle action noted. Patient noted to have diminished breath sounds both bases, dullness both bases and few a scattered crackles. CHEST: Palpation of the chest wall shows no significant chest wall tenderness. No other significant abnormalities noted. HEART: [place] PEN MAKER, No PSH, 1/6 SANDRA aortic area, 1/6 robles systolic murmur mitral area, no rubs, no gallops. ABDOMEN: Soft, no significant tenderness appreciated, normoactive bowel sounds. No guarding, no rebound. No rigidity noted . No masses appreciated. EXTREMITIES: Pedal pulses are 1-2+, no calf tenderness noted. No clubbing or cyanosis.trace to 1+ pedal edema noted. NEUROLOGICAL: Focused neurological exam showed no significant neurologic deficit. Normal speech, no focal weakness appreciated. PSYCH: Normal mood, normal affect. Judgment and insight within normal limits. SKIN: No significant ecchymosis, skin is noted to be warm. Superficial skin excoriations noted. MUSCULOSKELETAL EXAM: No significant acute joint swelling noted. Results Laboratory Results: 06/04/17 06:02 06/04/17 06:02 06/04/17 06/04/17 06:02 06:02 WBC 12.3 H RBC 4.42 Hgb 13.0 L Hct 38.8 MCV 88 MCH 29.3 MCHC 33.4 RDW 16.1 H Plt Count 83 L D Seg Neutrophils % Not Reportable Lymphocytes % Not Reportable Monocytes % Not Reportable Eosinophils % Not Reportable Basophils % Not Reportable Absolute Neutrophils Not Reportable Absolute Lymphocytes Not Reportable Absolute Monocytes Not Reportable Absolute Eosinophils Not Reportable Absolute Basophils Not Reportable Sodium 137.5 Potassium 3.6 Chloride 97 L Carbon Dioxide 25 Anion Gap 16 BUN 19 Creatinine 3.20 H Est GFR ( Amer) 23 L Est GFR (Non-Af Amer) 19 L Glucose 119 H Calcium 9.7 Magnesium 2.0 Total Bilirubin 0.7 AST 76 H ALT 49 Alkaline Phosphatase 120 Total Protein 7.1 Albumin 3.9 EKG Comments: Patient seems to be maintaining sinus rhythm. Impressions: Abdomen/Pelvis CT 05/29/17 00:00 IMPRESSION: Multiple bilateral renal calcifications as noted above most consistent with a combination of vascular calcifications and nonobstructing renal calculi. No definite ureteric calculi are identified. Thickening of the carrera of the colon at the level of the cecum and proximal ascending colon as noted above the possibility of a neoplastic process cannot be excluded. Colonoscopy may be of value for further evaluation. Moderate size bilateral pleural effusions with associated airspace consolidation which could represent atelectatic changes or pneumonic consolidations. Other findings as noted above Chest X-Ray 05/31/17 06:00 IMPRESSION: Small pleural effusions. Worsening atelectasis or developing pneumonia in the left lower lobe. Chest CT 06/02/17 00:00 IMPRESSION: Bilateral pleural effusions with partial atelectasis in the left lower lobe. Assessment & Plan - Diagnosis (1) Atrial fibrillation with rapid ventricular response Is this a current diagnosis for this admission?: Yes (2) ESRD (end stage renal disease) Is this a current diagnosis for this admission?: Yes (3) Hypertension Is this a current diagnosis for this admission?: Yes (4) Impaired mobility and ADLs Is this a current diagnosis for this admission?: Yes (5) Tobacco abuse Is this a current diagnosis for this admission?: Yes (6) Undernutrition Is this a current diagnosis for this admission?: Yes (7) Pneumonia Qualifiers: Pneumonia type: due to unspecified organism Lung location: unspecified part of lung Is this a current diagnosis for this admission?: Yes (8) Thrombocytopenia Is this a current diagnosis for this admission?: Yes (9) Bilateral pleural effusion Is this a current diagnosis for this admission?: Yes - Notes Notes: Patient remains very debilitated. Patient baseline status seems poor with significant underweight. Patient to get albumin infusion on dialysis. CT scan showed bilateral pleural effusion. Consider thoracentesis for diagnostic purposes. However I am told that patient is going to have ultrafiltration to remove fluid. Consider repeating chest x-ray or CT scan prior to discharge. Atrial fibrillation with rapid ventricular response, this was transient: Currently has been maintaining sinus rhythm for last several days. Patient felt a suboptimal candidate for chronic anticoagulation and in view of end- stage renal disease and thrombocytopenia, the only anticoagulant that patient would be a candidate for it would be chronic Coumadin therapy. There is some relative contraindication. Will let [place] blind installer and lapidarist make that decision as patient would need to regular follow-up very closely if any chronic anticoagulation is started. Thrombocytopenia: On steroid therapy. Cirrhosis of liver: Currently stable. Platelet counts has been stable. End-stage renal disease: Patient on dialysis therapy. Hypertension: Blood pressure is satisfactorily controlled. Impaired mobility and ADLS: Patient will benefit from physical therapy. I was told by the physical therapy that patient was able to walk 15 feet yesterday. Tobacco abuse: Patient has been a smoke free. Undernutrition: Patient noted to be underweight. Improve nutrition, evaluate patient for underweight status. Patient getting some albumin on dialysis. Pneumonia: Patient on antibiotic therapy. Bilateral pleural effusion: Could be related to CHF from diastolic dysfunction, pulmonary hypertension etc. Recommend thoracentesis for diagnostic purposes if not been done previously. However patient is having fluid removed on dialysis and through ultrafiltration. Continue to observe very closely. - Time Time with patient: 15-25 minutes - CODE STATUS was discussed, patient remains full code. Surrogate decision-maker unchanged. Multiple medical problems were addressed. More than 50% of the time spent coordinating care, discussing management plans with involved caregivers. Management plans discussed with involved personnels. Medical decision making was of moderate to high complexity , patient's has multiple comorbidities. Medications reviewed and adjusted accordingly: Yes
--- NOTE | 2017-06-07 17:22 | PDOC PROGRESS REPORT ---
Subjective Progress Note for:: 06/05/17 Subjective:: Patient noted resting in bed without any significant complaints.. Patient remains quite debilitated. Pt is denying any chest arm or neck discomfort. Patient denying any PND, orthopnea. Patient denied any sustained palpitations, dizziness, syncope, near syncope. Patient denying any fever chills. Complaining of significant back pain. Patient is maintaining sinus rhythm. Patient had spontaneously converted from atrial fibrillation on 05/28/2017. No recurrence of atrial fibrillation. Review of systems: Rest review of systems negative. Medications: Medications have been reviewed. Reason For Visit: AFIB WITH RVR THROMBOCYTOPENIA LACTIC ACIDOSIS Physical Exam Vital Signs: Temp Pulse Resp BP Pulse Ox 98.3 F 132 H 12 165/58 H 100 06/05/17 15:31 06/05/17 15:31 06/05/17 15:31 06/05/17 15:31 06/05/17 15:31 Intake & Output 06/04/17 06/05/17 06/06/17 06:59 06:59 06:59 Intake Total 660 662 180 Output Total 1100 Balance 660 -438 180 Weight 55.7 kg 50.2 kg Exam: GENERAL: Remains underweight and cachectic in appearance. Alert and oriented x3 HEAD: Atraumatic, normocephalic. EYES: Pupils equal round and reactive to light, extraocular movements intact, sclera anicteric, conjunctiva are normal. ENT: TMs normal, nares patent, oropharynx clear without exudates. Moist mucous membranes. No oral ulcerations or bleeding gums noted NECK: supple without lymphadenopathy. Trachea is central. No cervical or axillary lymphadenopathy noted. Carotids are 2+, JVD WNL LUNGS: Respiration seems nonlabored, no significant accessory muscle action noted. Few bibasilar crackles and few a scattered wheezing noted. CHEST: Palpation of the chest wall shows no significant chest wall tenderness. No other significant abnormalities noted. 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 ABDOMEN: Soft, no significant tenderness appreciated, normoactive bowel sounds. No guarding, no rebound. No rigidity noted . No masses appreciated. EXTREMITIES: Pedal pulses are 1-2+, no calf tenderness noted. No clubbing or cyanosis.tracepedal edema noted NEUROLOGICAL: Focused neurological exam showed no significant neurologic deficit. Low volume speech. Patient tells me that he ambulated 15 feet. PSYCH: Normal mood, normal affect. Judgment and insight within normal limits. Cannot rule out underlying depression. SKIN: No significant ecchymosis, skin is noted to be warm. Some superficial excoriations noted. MUSCULOSKELETAL EXAM: No significant acute joint swelling noted. Results Laboratory Results: 06/05/17 10:17 06/04/17 06:02 06/05/17 10:17 WBC 13.0 H RBC 4.24 L Hgb 12.4 L Hct 36.9 L MCV 87 MCH 29.1 MCHC 33.4 RDW 16.1 H Plt Count 162 Seg Neutrophils % 65.0 Lymphocytes % 15.2 Monocytes % 18.9 H Eosinophils % 0.6 Basophils % 0.3 Absolute Neutrophils 8.5 H Absolute Lymphocytes 2.0 Absolute Monocytes 2.5 H Absolute Eosinophils 0.1 Absolute Basophils 0.0 Impressions: Abdomen/Pelvis CT 05/29/17 00:00 IMPRESSION: Multiple bilateral renal calcifications as noted above most consistent with a combination of vascular calcifications and nonobstructing renal calculi. No definite ureteric calculi are identified. Thickening of the carrera of the colon at the level of the cecum and proximal ascending colon as noted above the possibility of a neoplastic process cannot be excluded. Colonoscopy may be of value for further evaluation. Moderate size bilateral pleural effusions with associated airspace consolidation which could represent atelectatic changes or pneumonic consolidations. Other findings as noted above Chest CT 06/02/17 00:00 IMPRESSION: Bilateral pleural effusions with partial atelectasis in the left lower lobe. Chest X-Ray 06/05/17 06:00 IMPRESSION: 1. Interval decrease in right upper lobe and right basilar infiltrate or pneumonia. Right pleural effusion. Persistent consolidation or atelectasis left lower lobe with left pleural effusion. Assessment & Plan - Diagnosis (1) Atrial fibrillation with rapid ventricular response Is this a current diagnosis for this admission?: Yes (2) ESRD (end stage renal disease) Is this a current diagnosis for this admission?: Yes (3) Hypertension Is this a current diagnosis for this admission?: Yes (4) Impaired mobility and ADLs Is this a current diagnosis for this admission?: Yes (5) Tobacco abuse Is this a current diagnosis for this admission?: Yes (6) Undernutrition Is this a current diagnosis for this admission?: Yes (7) Pneumonia Qualifiers: Pneumonia type: due to unspecified organism Lung location: unspecified part of lung Is this a current diagnosis for this admission?: Yes (8) Thrombocytopenia Is this a current diagnosis for this admission?: Yes (9) Bilateral pleural effusion Is this a current diagnosis for this admission?: Yes - Notes Notes: Atrial fibrillation with rapid ventricular response, this was transient: Currently has been maintaining sinus rhythm for last several days. Patient felt a suboptimal candidate for chronic anticoagulation. This is for marked underweight and risk of falling. Thrombocytopenia: This seems to have significantly improved. Cirrhosis of liver: Currently stable. Platelet counts has been stable. End-stage renal disease: Patient on dialysis therapy. Hypertension: Blood pressure is satisfactorily controlled. Impaired mobility and ADLS: Patient will benefit from physical therapy. This is continuing. Tobacco abuse: Patient has been a smoke free. Undernutrition: Patient noted to be underweight. Improve nutrition, evaluate patient for underweight status. Patient getting some albumin on dialysis. Pneumonia: Patient on antibiotic therapy. Bilateral pleural effusion: Chest x-ray showed significant improvement. Patient has remained stable for last several days. Since pleural effusion has improved with ultrafiltration, was most likely related to CHF. Recommend periodic chest x-ray and CT scan as needed but this should be symptom driven. At this point will sign off. Please reconsult if needed. - Time Time with patient: 15-25 minutes - CODE STATUS was discussed, patient remains full code. Surrogate decision-maker unchanged. Multiple medical problems were addressed. More than 50% of the time spent coordinating care, discussing management plans with involved caregivers. Management plans discussed with involved personnels. Medical decision making was of moderate to high complexity , patient's has multiple comorbidities. Medications reviewed and adjusted accordingly: Yes
== END 2017-06-07 15:25 | DRG 308 ==
LOC: ER 14:46 → INTOOBSV 18:25 → EH 18:25 → OBSVTOIN 18:25 → 4N 22:55 → OBSVTOIN 05-31 08:07
PROVIDERS: ADMIT Student in an Organized Health Care Education/Training Program; ATTEND Student in an Organized Health Care Education/Training Program
PROC: 5A1D70Z Performance of Urinary Filtration, Intermittent, Less than 6 Hours Per Day (ICD-10-PCS; 2017-05-28)
PROC: 5A1D70Z Performance of Urinary Filtration, Intermittent, Less than 6 Hours Per Day (ICD-10-PCS; 2017-05-30)
PROC: 30233N1 Transfusion of Nonautologous Red Blood Cells into Peripheral Vein, Percutaneous Approach (ICD-10-PCS; principal; 2017-06-02)
PROC: 5A1D70Z Performance of Urinary Filtration, Intermittent, Less than 6 Hours Per Day (ICD-10-PCS; 2017-06-02)
PROC: 5A1D70Z Performance of Urinary Filtration, Intermittent, Less than 6 Hours Per Day (ICD-10-PCS; 2017-06-04)
PROC: 5A1D70Z Performance of Urinary Filtration, Intermittent, Less than 6 Hours Per Day (ICD-10-PCS; 2017-06-06)
DX: I48.91 Unspecified atrial fibrillation (principal); G93.41 Metabolic encephalopathy; N18.6 End stage renal disease; D61.811 Other drug-induced pancytopenia; J18.9 Pneumonia, unspecified organism; E87.2 Acidosis; M86.679 Other chronic osteomyelitis, unspecified ankle and foot; I13.2 Hypertensive heart and chronic kidney disease with heart failure and with stage 5 chronic kidney disease, or end stage renal disease; I50.30 Unspecified diastolic (congestive) heart failure; E46 Unspecified protein-calorie malnutrition; Z68.1 Body mass index [BMI] 19.9 or less, adult; R64 Cachexia; Z66 Do not resuscitate; D69.6 Thrombocytopenia, unspecified; T36.8X5A Adverse effect of other systemic antibiotics, initial encounter; J32.0 Chronic maxillary sinusitis; K74.60 Unspecified cirrhosis of liver; M54.9 Dorsalgia, unspecified; I50.9 Heart failure, unspecified; M51.26 Other intervertebral disc displacement, lumbar region; K21.9 Gastro-esophageal reflux disease without esophagitis; M10.9 Gout, unspecified; F32.9 Major depressive disorder, single episode, unspecified; F41.1 Generalized anxiety disorder; N20.0 Calculus of kidney; Z60.2 Problems related to living alone; E78.00 Pure hypercholesterolemia, unspecified; E83.39 Other disorders of phosphorus metabolism; I27.20 Pulmonary hypertension, unspecified; D63.1 Anemia in chronic kidney disease; F17.210 Nicotine dependence, cigarettes, uncomplicated; G89.29 Other chronic pain; Z99.2 Dependence on renal dialysis; Z74.09 Other reduced mobility; Z79.82 Long term (current) use of aspirin; Z79.899 Other long term (current) drug therapy; Z85.828 Personal history of other malignant neoplasm of skin; Z87.11 Personal history of peptic ulcer disease; Z90.49 Acquired absence of other specified parts of digestive tract; Z98.49 Cataract extraction status, unspecified eye; Z82.49 Family history of ischemic heart disease and other diseases of the circulatory system; Z80.3 Family history of malignant neoplasm of breast; Z80.0 Family history of malignant neoplasm of digestive organs
CPT/HCPCS: 36415; 36430; 70450; 71045; 71046; 71250; 74176; 80048; 80053; 80061; 82803; 82962; 83036; 83605; 83615; 83735; 84439; 84443; 84484; 85025; 85027; 85045; 85610; 86850; 86900; 86901; 86920; 87040; 87493; 93005; 93010; 93306; 99285; G0378; J1644; J1940; J3490; J7512; P9016; P9047; Q4081

== ENCOUNTER → 2017-06-17 | Emergency (ER) | payer OTHER, MEDICARE ==
[~2017-06-17] MED LIST changes: -EPINEPHRINE INJ 1 MG/10 ML DISP.SYRIN ONE; -FENTANYL CITRATE INJ/PF 100 MCG/2 ML AMPUL ONE; -FLUMAZENIL INJ 0.5 MG/5 ML VIAL IV ONE; -GLYCOPYRROLATE INJ 0.4 MG/2 ML VIAL ONE; +HYDROMORPHONE HCL INJ/PF 2 MG/ML AMPULE IV ONE; -MIDAZOLAM 2 MG/2 ML INJ ONE; -NALOXONE HCL INJ/PF 0.4 MG/1 ML SDV ONE; +NORMAL SALINE 250 ML IV PRN; -ONDANSETRON HCL INJ/PF 4 MG/2 ML SDV ONE
--- NOTE | 2017-06-17 16:08 | EKG REPORT ---
SEVERITY:- ABNORMAL ECG - SINUS RHYTHM LOW VOLTAGE IN FRONTAL LEADS BORDERLINE R WAVE PROGRESSION, ANTERIOR LEADS NONSPECIFIC T ABNORMALITIES, DIFFUSE LEADS : Confirmed by: Jory Ulloa 17-Jun-2017 16:07:49
[2017-06-17 16:52] LABS: ABSOLUTE BASOPHILS # (AUTO) 0.1 10^3/uL (0.0-0.2); ABSOLUTE LYMPHOCYTES (AUTO) 1.8 10^3/uL (0.5-4.7); ABSOLUTE MONOCYTES (AUTO) 1.1 10^3/uL (0.1-1.4); ABSOLUTE NEUT (AUTO) 4.9 10^3/uL (1.7-8.2); BASOPHILS % (AUTO) 1.1 % (0-2); EOSINOPHILS % (AUTO) 0.3 % (0-6); HEMATOCRIT 20.1 % (37.9-51.0); HEMOGLOBIN 6.7 g/dL (13.5-17.0); MEAN CORPUSCULAR HEMOGLOBIN 30.2 pg (27.0-33.4); MEAN CORPUSCULAR HGB CONC 33.3 g/dL (32.0-36.0); MEAN CORPUSCULAR VOLUME 91 fl (80-97); MONOCYTES % (AUTO) 13.5 % (3-13); PLATELET COUNT 278 10^3/uL (150-450); RED BLOOD COUNT 2.21 10^6/uL (4.35-5.55); RED CELL DISTRIBUTION WIDTH 18.1 % (11.5-14.0); SEGMENTED NEUTROPHILS % (AUTO) 62.1 % (42-78); TOTAL CELLS COUNTED % (AUTO) 100 %
[2017-06-17 16:53] LABS: INTERNATIONAL RATION (INR) 1.08; PARTIAL THROMBOPLASTIN TIME 36.5 SEC (23.5-35.8); PROTHROMBIN TIME 14.8 SEC (11.4-15.4)
[2017-06-17 17:00] LABS: ALBUMIN 2.8 g/dL (3.5-5.0); ALKALINE PHOSPHATASE 132 U/L (38-126); ANION GAP 10 (5-19); ASPARTATE AMINO TRANSFERASE 35 U/L (17-59); BILIRUBIN,DIRECT 0.4 mg/dL (0.0-0.4); BILIRUBIN,TOTAL 0.4 mg/dL (0.2-1.3); BLOOD UREA NITROGEN 68 mg/dL (7-20); CALCIUM 8.8 mg/dL (8.4-10.2); CARBON DIOXIDE 26 mmol/L (22-30); CHLORIDE 98 mmol/L (98-107); CREATINE KINASE 21 U/L (55-170); LIPASE 48.5 U/L (23-300); POTASSIUM 4.2 mmol/L (3.6-5.0); TOTAL PROTEIN 6.3 g/dL (6.3-8.2)
[2017-06-17 17:02] LABS: ALANINE AMINOTRANSFERASE 28 U/L (21-72); GLUCOSE 99 mg/dL (75-110)
--- NOTE | 2017-06-17 17:12 | ER Document Report ---
ED General <JULIETTE CORTEZ - Last Filed: 06/17/17 21:04> - General Mode of Arrival: Wheelchair Information source: Patient TRAVEL OUTSIDE OF THE [place] IN LAST 30 DAYS: No <BRIAN MEEKS - Last Filed: 06/19/17 14:23> - General Chief Complaint: Nausea/Vomiting Stated Complaint: VOMITING - HPI Notes: 67-year-old male history of chronic A. fib, end-stage renal failure, thrombocytopenia from [facility] presents today via EMS with complaints of vomiting "dark stool" noted by the nurse once today. Patient was given Zofran in route by EMS at 1500. Patient denies any other episodes of vomiting. Denies any trauma. Patient is not on a baby aspirin. Denies fevers , chills, chest pain,palpitations, shortness of breath, dyspnea, diarrhea, abdominal pain, hematuria,blurred vision, double vision, loss of vision, speech changes, LH, dizziness, syncope, headaches, wheezing, ST, URI, neck pain, weakness, bowel or bladder dysfunction, saddle anesthesia, numbness or tingling in bilateral upper or lower extremities equally, muscle paralysis, weakness in bilateral upper or lower extremities equally or rash. Denies IV drug use. ( BRIAN MEEKS) - Related Data Allergies/Adverse Reactions: No Known Allergies Allergy (Verified 06/17/17 16:01) Past Medical History - General Information source: Patient, Emergency Med Personnel - Social History Smoking Status: Current Every Day Smoker Chew tobacco use (# tins/day): No Frequency of alcohol use: None Drug Abuse: None Family History: Hypertension Patient has suicidal ideation: No Patient has homicidal ideation: No - Past Medical History Cardiac Medical History: Reports: Hx Congestive Heart Failure, Hx Hypertension Denies: Hx Coronary Artery Disease, Hx DVT, Hx Heart Attack, Hx Hypercholesterolemia, Hx Pulmonary Embolism Pulmonary Medical History: Denies: Hx Asthma, Hx Bronchitis, Hx COPD, Hx Pneumonia, Hx Sleep Apnea Neurological Medical History: Denies: Hx Cerebrovascular Accident, Hx Seizures Endocrine Medical History: Denies: Hx Diabetes Mellitus Type 1, Hx Diabetes Mellitus Type 2, Hx Hyperthyroidism, Hx Hypothyroidism Renal/ Medical History: Reports: Hx End Stage Renal Disease, Hx Hemodialysis, Hx Kidney Stones. Denies: Hx Peritoneal Dialysis Malignancy Medical History: Reports Hx Skin Cancer GI Medical History: Reports: Hx Cirrhosis, Hx Gastroesophageal Reflux Disease, Hx Ulcer Musculoskeltal Medical History: Reports Hx Arthritis, Reports Hx Gout Psychiatric Medical History: Reports: Hx Depression Infectious Medical History: Denies: Hx C-Diff, Hx MRSA Past Surgical History: Reports: Hx Appendectomy, Hx Cholecystectomy, Hx Herniorrhaphy, Hx Orthopedic Surgery - B elbow, R wrist, Hx Vascular Surgery - Perm catheter for dialysis; fistula formation, maturing, for dialysis., Other - Cataract extraction, right ureteral stent - Immunizations Immunizations up to date: No Hx Diphtheria, Pertussis, Tetanus Vaccination: Yes Hx Pneumococcal Vaccination: 12/29/14 <BRIAN MEEKS - Last Filed: 06/19/17 14:23> Review of Systems <JULIETTE CORTEZ - Last Filed: 06/17/17 21:04> <BRIAN MEEKS - Last Filed: 06/19/17 14:23> - Review of Systems Notes: REVIEW OF SYSTEMS: CONSTITUTIONAL : Denies fever, chills, or sweats. Denies recent illness. EENT: Denies eye, ear, throat, or mouth pain or symptoms. Denies nasal or sinus congestion or discharge. Denies throat, tongue, or mouth swelling or difficulty swallowing. CARDIOVASCULAR: Denies chest pain. Denies palpitations or racing or irregular heart beat. Denies ankle edema. RESPIRATORY: Denies cough, cold, or chest congestion. Denies shortness of breath, difficulty breathing, or wheezing. GASTROINTESTINAL: +vomitng and nausea. Denies abdominal pain or distention. Denies or diarrhea. Denies blood in vomitus, stools, or per rectum. Denies black, tarry stools. Denies constipation. GENITOURINARY: Denies difficulty urinating, painful urination, burning, frequency, blood in urine, or discharge. MUSCULOSKELETAL: Denies back or neck pain or stiffness. Denies joint pain or swelling. SKIN: Denies rash, lesions or sores. HEMATOLOGIC : Denies easy bruising or bleeding. LYMPHATIC: Denies swollen, enlarged glands. NEUROLOGICAL: Denies confusion or altered mental status. Denies passing out or loss of consciousness. Denies dizziness or lightheadedness. Denies headache. Denies weakness or paralysis or loss of use of either side. Denies problems with gait or speech. Denies sensory loss, numbness, or tingling. Denies seizures. PSYCHIATRIC: Denies anxiety or stress. Denies depression, suicidal ideation, or homicidal ideation. ALL OTHER SYSTEMS REVIEWED AND NEGATIVE. Dictation was performed using [employer] voice recognition software PHYSICAL EXAMINATION: GENERAL: Chronic appearing malnourished male in no active distress HEAD: Atraumatic, normocephalic. EYES: Pupils equal round and reactive to light, extraocular movements intact, sclera anicteric, conjunctiva are normal. ENT: Nares patent, oropharynx clear without exudates. Moist mucous membranes. NECK: Normal range of motion, supple without lymphadenopathy LUNGS: Breath sounds clear to auscultation bilaterally and equal. No wheezes rales or rhonchi. HEART: Regular rate and rhythm without murmurs ABDOMEN: Soft, nontender, nondistended abdomen. No guarding, no rebound. No masses appreciated. Musculoskeletal: Normal range of motion, no pitting or edema. No cyanosis. NEUROLOGICAL: Cranial nerves grossly intact. Normal speech, normal gait. Normal sensory, motor exams PSYCH: Normal mood, normal affect. SKIN: Warm, Dry, normal turgor, no rashes or lesions noted. Right upper chest port, no induration, erythema, warmth to touch noted around chest port. No drainage noted. (BRIAN MEEKS) - Vital signs Vitals: Resp 19 06/17/17 15:35 Course - Laboratory Result Diagrams: 06/17/17 16:25 06/17/17 16:25 <JULIETTE CORTEZ - Last Filed: 06/17/17 21:04> - Laboratory Result Diagrams: 06/17/17 16:25 06/17/17 16:25 <BRIAN MEEKS - Last Filed: 06/19/17 14:23> - Re-evaluation Re-evalutation: 06/17/17 21:04 Patient evaluated stable at this time transfer is here for the patient ( JULIETTE CORTEZ) 06/17/17 18:05 A chronically ill 67-year-old male presents today with complaints of "dark emesis by his nurse" times once today, given Zofran in route to hospital. Patient states he is not having any abdominal pain, denies any chest pain or shortness of breath or any other concerns. Patient is not on any blood thinners. CBC shows patient has a hemoglobin of 6.7 and a creatinine of 20.1, platelets are 278 and trending of laboratory findings, patient hemoglobin was 10.9 on June 07, 2010 0.6 on June 07, 2011 0.4 on June 05, 2012 0.0 on June 04 as well as his hematocrit being 33.4 on June 07, 1929 5.4 in June 06, 1929 6.9 on June 05 and 30 8 point. Patient has not been seen by fryline attendant within the last 2 years, no known history of gastric ulcers, peptic ulcers and any other bleeding disorders. Patient is not in any active distress. Guaiac was positive. Discussed these findings with patient, advised him that he will require blood transfusion, patient given 2 units of packed red blood cells per protocol. [facility] consulted at 1730 for transfer since this hospital does not have gastroenterology distillation operator at this time. Report given to Dr.Kristy Godfrey , hospitalist at [facility], for further evaluation and management of his upper GI bleed as well as lower GI bleed. pt will be brought to a medical bed at [facility]. (BRIAN MEEKS) - Vital Signs Vital signs: Temp Pulse Resp BP Pulse Ox 97.8 F 70 20 139/51 H 99 06/17/17 21:11 06/17/17 21:11 06/17/17 21:11 06/17/17 21:11 06/17/17 21:11 - Laboratory Laboratory results interpreted by me: 06/17/17 06/17/17 06/17/17 16:25 16:25 16:25 RBC 2.21 L Hgb 6.7 L Hct 20.1 L RDW 18.1 H Monocytes % 13.5 H APTT 36.5 H Sodium 134.0 L BUN 68 H Creatinine 4.87 H Est GFR ( Amer) 14 L Est GFR (Non-Af Amer) 12 L Alkaline Phosphatase 132 H Creatine Kinase 21 L Albumin 2.8 L Crossmatch 06/17/17 16:25 RBC Hgb Hct RDW Monocytes % APTT Sodium BUN Creatinine Est GFR ( Amer) Est GFR (Non-Af Amer) Alkaline Phosphatase Creatine Kinase Albumin Crossmatch See Detail Discharge <JULIETTE CORTEZ - Last Filed: 06/17/17 21:04> <BRIAN MEEKS - Last Filed: 06/19/17 14:23> - Discharge Clinical Impression: Upper gastrointestinal bleed, Lower gastrointestinal bleed Condition: Good Disposition: [facility]
[2017-06-17 21:15] VITALS: BP 139/51
== END | disposition short-term general hospital (02) ==
LOC: ER 15:25
DX: K92.2 Gastrointestinal hemorrhage, unspecified (principal); R11.2 Nausea with vomiting, unspecified; I12.0 Hypertensive chronic kidney disease with stage 5 chronic kidney disease or end stage renal disease; N18.6 End stage renal disease; Z99.2 Dependence on renal dialysis; F17.200 Nicotine dependence, unspecified, uncomplicated; Z85.828 Personal history of other malignant neoplasm of skin; Z90.49 Acquired absence of other specified parts of digestive tract; Z87.19 Personal history of other diseases of the digestive system
CPT/HCPCS: 93005; 99285; 96374; 86900; 86901; 36415; 36430; 86850; 82550; 83690; 85025; 85610; 85730; 82272; 80053; 84484; 86920; 93010; P9016; J1170; J7050

== ENCOUNTER 2017-08-18 12:48 | Inpatient (IN) | payer MEDICARE, OTHER ==
[2017-08-18] MEDS ORDERED: ACETAMINOPHEN 325 MG TABLET PO ONE (13:20)
[2017-08-18] MEDS ORDERED: CEFEPIME 2 GM/D5W RTU 2 GM/50 ML RTUPB IV ONE (13:42)
[2017-08-18] MEDS ORDERED: VANCOMYCIN HCL INJ 1000 MG VIAL IV ONE (13:44)
--- NOTE | 2017-08-18 13:44 | RADIOLOGY REPORT (SQ) ---
EXAM DESCRIPTION: CHEST SINGLE VIEW COMPLETED DATE/TIME: 08/18/2017 1:33 pm REASON FOR STUDY: dialysis cath infection COMPARISON: Chest films 05/03/2017, 06/05/2017 CT chest 06/02/2017 EXAM PARAMETERS: NUMBER OF VIEWS: One view. TECHNIQUE: Single frontal radiographic view of the chest acquired. RADIATION DOSE: NA LIMITATIONS: None. FINDINGS: LUNGS AND PLEURA: Mild pulmonary vascular prominence. Few Pennie lines. No alveolar infi ltrates worrisome for edema or pneumonia. Trace left pleural fluid. No pneumothorax. MEDIASTINUM AND HILAR STRUCTURES: No masses. Contour normal. HEART AND VASCULAR STRUCTURES: Stable mild cardiomegaly BONES: No acute findings. HARDWARE: Unchanged right jugular central venous dialysis catheter with the tip in the right atrium. Clips right upper quadrant post cholecystectomy. OTHER: No other significant finding. IMPRESSION: Few Pennie lines with trace left pleural fluid. PermCath tip in the right atrium. TECHNICAL DOCUMENTATION: JOB ID: [id number] [employer]- All Rights Reserved Reading location - IP/workstation name: [id number]
--- NOTE | 2017-08-18 13:49 | ER Document Report ---
ED Fever - General Stated Complaint: PORT ISSSUES Time Seen by Provider: 08/18/17 13:00 Mode of Arrival: Medic Information source: Patient, Relative, Transfer Record Notes: Patient presents from the skilled nursing with concerns about an infected PermCath to his right upper chest wall. Staff noticed redness and drainage from the site. Patient does have a fever. Daughter states that patient has been noncompliant with dialysis as he has not been certain if he wanted to continue to have dialysis. Patient's last dialysis session was about 2-1/2 weeks ago. Patient has been treated on outpatient basis for osteomyelitis involving the left great toe. Daughter states that the wound to the toe looks worse today and is black in color to the tip of the toe. Patient had previously been a DNR and then had switched to a DNI and most recently decided to be a full code again. Daughter is a nurse and has tried to encourage patient to make his own medical decisions. TRAVEL OUTSIDE OF THE [place] IN LAST 30 DAYS: No - HPI Onset: This morning Onset/Duration: Gradual Quality of pain: Achy Pain Level: 3 Context: Dialysis. denies: Cough, Nausea/vomiting Associated symptoms: Fever, Weakness. denies: Chest pain, Nonproductive cough, Productive cough, Nausea, Vomiting Similar symptoms previously: No Recently seen / treated by doctor: No - Related Data Allergies/Adverse Reactions: No Known Allergies Allergy (Verified 06/17/17 16:01) Past Medical History - General Information source: Patient, Relative, Transfer Record - Social History Smoking Status: Current Every Day Smoker Drug Abuse: None Lives with: Shelter Family History: Hypertension - Past Medical History Cardiac Medical History: Reports: Hx Atrial Fibrillation, Hx Congestive Heart Failure, Hx Hypertension Denies: Hx Coronary Artery Disease, Hx DVT, Hx Heart Attack, Hx Hypercholesterolemia, Hx Pulmonary Embolism Pulmonary Medical History: Denies: Hx Asthma, Hx Bronchitis, Hx COPD, Hx Pneumonia, Hx Sleep Apnea Neurological Medical History: Denies: Hx Cerebrovascular Accident, Hx Seizures Endocrine Medical History: Denies: Hx Diabetes Mellitus Type 1, Hx Diabetes Mellitus Type 2, Hx Hyperthyroidism, Hx Hypothyroidism Renal/ Medical History: Reports: Hx End Stage Renal Disease, Hx Hemodialysis, Hx Kidney Stones. Denies: Hx Peritoneal Dialysis Malignancy Medical History: Reports Hx Skin Cancer GI Medical History: Reports: Hx Cirrhosis, Hx Gastroesophageal Reflux Disease, Hx Ulcer Musculoskeltal Medical History: Reports Hx Arthritis, Reports Hx Gout Psychiatric Medical History: Reports: Hx Depression Infectious Medical History: Denies: Hx C-Diff, Hx MRSA Past Surgical History: Reports: Hx Appendectomy, Hx Cholecystectomy, Hx Herniorrhaphy, Hx Orthopedic Surgery - B elbow, R wrist, Hx Vascular Surgery - Perm catheter for dialysis; fistula formation, maturing, for dialysis., Other - Cataract extraction, right ureteral stent - Immunizations Immunizations up to date: No Hx Diphtheria, Pertussis, Tetanus Vaccination: Yes Hx Pneumococcal Vaccination: 12/29/14 Review of Systems - Review of Systems Constitutional: Fever, Malaise EENT: No symptoms reported Cardiovascular: No symptoms reported. denies: Chest pain Respiratory: Cough Gastrointestinal: No symptoms reported. denies: Abdominal pain, Nausea, Vomiting Genitourinary: No symptoms reported Male Genitourinary: No symptoms reported Musculoskeletal: Back pain - Chronic back pain Skin: Change in color - Black coloration to left great toe, erythema to left elbow and right chest wall surrounding PermCath site Hematologic/Lymphatic: No symptoms reported Neurological/Psychological: No symptoms reported Physical Exam - Vital signs Vitals: Temp 100.9 F H 08/18/17 13:00 - General General appearance: Alert In distress: Moderate Notes: Patient cachectic and appears chronically ill - HEENT Head: Normocephalic Eyes: Normal Nasal: Normal Mouth/Lips: Normal Mucous membranes: Dry Neck: Normal, Supple. No: Lymphadenopathy - Respiratory Respiratory status: No respiratory distress Chest status: Nontender Breath sounds: Nonproductive cough, Rhonchi Chest palpation: Normal - Cardiovascular Rhythm: Regular Heart sounds: S1 appreciated, S2 appreciated - Abdominal Inspection: Normal Distension: No distension Bowel sounds: Normal Tenderness: Nontender Organomegaly: No organomegaly - Back Back: Tender - Lumbar paraspinal tenderness - Extremities General upper extremity: Edema - Mild edema with erythema overlying left olecranon process, Normal ROM General lower extremity: Tender - Blackened area the distal tip of left great toe, Normal ROM - Neurological Neuro grossly intact: Yes [place] Coma Scale Eye Opening: Spontaneous Samantha Coma Scale Verbal: Oriented [place] Coma Scale Motor: Obeys Commands [place] Coma Scale Total: 15 - Psychological Associated symptoms: Flat affect - Skin Skin Temperature: Warm Skin Moisture: Dry Skin Color: Erythema - Over left olecranon process, Blackened - Distal tip of left great toe Skin irregularity: Erythema - To sacral area Irregularity with: Tenderness - Left great toe Course - Re-evaluation Re-evalutation: 08/18/17 13:[address] Gonzalez, Dr. Gonzalez to bedside for examination. Advises starting IV cefepime and vancomycin and awaiting results of diagnostic tests. Will hold IV fluid bolus at this time as patient has not dialyzed for the past 2 -1/2 weeks while we await patient's diagnostic test results at this time. Discussed plan of care with patient and his daughter who is the power of finance attorney. Patient at this time undecided whether or not he would like dialysis and is currently a full code. 08/18/17 15:27 RN states that patient only received about half of the oral Tylenol dose as he had difficulty with swallowing the tablet. Dose converted to suppository. Patient's potassium 6.5 and creatinine is 8.1, patient after much contemplation has decided that he will agree to dialysis. 08/18/17 15:[address] Gonzalez, reviewed patient's EKG, advises giving patient amp of D50, insulin 10 units IV and amp of bicarb in a 250 normal saline bolus. While attempting to consult with hospitalist and nephrology for dialysis and admission. 08/18/17 16:[address] Beach who states that patient is under the services of Dr. Billy, recommends consultation with her. 08/18/17 16:[address] Billy regarding patient presentation, reviewed his diagnostic test results. Dr. Billy is agreeable with having her dialysis team come and dialyze patient here in the emergency department. Dr. Billy requests that he should be moved to room 18 or [address] Billy advises dialyzing patient through his current PermCath and after dialysis is complete having the surgeon remove the PermCath with the plan to have a temporary cath placed. pattern grader supervisor advised of need for emergent dialysis and need for room change. Consulted with Dr. Jenny Hayden who agrees to accept patient as an admission to an IMCU room. Consulted with Dr. Ragsdale who agrees to come and evaluate patient 08/18/17 16:26 Dr. Alvarado to bedside for examination. Patient and family updated regarding plan of care. - Vital Signs Vital signs: Temp Pulse Resp BP Pulse Ox 100.9 F H 17 133/57 H 98 08/18/17 13:00 08/18/17 16:01 08/18/17 16:01 08/18/17 16:00 - Laboratory Result Diagrams: 08/18/17 14:20 08/18/17 14:20 Laboratory results interpreted by me: 08/18/17 08/18/17 08/18/17 14:20 14:20 14:20 WBC 22.4 H RBC 3.14 L Hgb 9.1 L Hct 28.4 L RDW 16.8 H Seg Neuts % (Manual) 95 H Lymphocytes % (Manual) 5 L Monocytes % (Manual) 0 L Abs Neuts (Manual) 21.3 H Abs Monocytes (Manual) 0.0 L PT 19.0 H VBG pCO2 VBG HCO3 Potassium 6.5 H* Carbon Dioxide 17 L BUN 69 H Creatinine 8.10 H Est GFR ( Amer) 8 L Est GFR (Non-Af Amer) 7 L Magnesium ALT 18 L Albumin 2.6 L 08/18/17 08/18/17 15:00 16:07 WBC RBC Hgb Hct RDW Seg Neuts % (Manual) Lymphocytes % (Manual) Monocytes % (Manual) Abs Neuts (Manual) Abs Monocytes (Manual) PT VBG pCO2 33.0 L VBG HCO3 19.7 L Potassium Carbon Dioxide BUN Creatinine Est GFR ( Amer) Est GFR (Non-Af Amer) Magnesium 1.2 L* ALT Albumin Labs- Entire Visit 08/18/17 08/18/17 08/18/17 14:20 14:20 14:20 WBC 22.4 H RBC 3.14 L Hgb 9.1 L Hct 28.4 L MCV 90 MCH 29.1 MCHC 32.2 RDW 16.8 H Plt Count 250 Total Counted 100 Seg Neutrophils % Not Reportable Seg Neuts % (Manual) 95 H Lymphocytes % Not Reportable Lymphocytes % (Manual) 5 L Monocytes % Not Reportable Monocytes % (Manual) 0 L Eosinophils % Not Reportable Eosinophils % (Manual) 0 Basophils % Not Reportable Basophils % (Manual) 0 Absolute Neutrophils Not Reportable Abs Neuts (Manual) 21.3 H Absolute Lymphocytes Not Reportable Abs Lymphs (Manual) 1.1 Absolute Monocytes Not Reportable Abs Monocytes (Manual) 0.0 L Absolute Eosinophils Not Reportable Absolute Eos (Manual) 0.0 Absolute Basophils Not Reportable Abs Basophils (Manual) 0.0 Toxic Granulation 1+ Toxic Vacuolation PRESENT Platelet Comment ADEQUATE Poikilocytosis SLIGHT Anisocytosis 1+ Target Cells SLIGHT Ovalocytes SLIGHT PT 19.0 H INR 1.51 VBG pH VBG pCO2 VBG HCO3 VBG Base Excess Sodium 141.3 Potassium 6.5 H* Chloride 106 Carbon Dioxide 17 L Anion Gap 18 BUN 69 H Creatinine 8.10 H Est GFR ( Amer) 8 L Est GFR (Non-Af Amer) 7 L Glucose 93 Lactic Acid Calcium 9.3 Total Bilirubin 0.4 Direct Bilirubin 0.4 Neonat Total Bilirubin Not Reportable Neonat Direct Bilirubin Not Reportable Neonat Indirect Bili Not Reportable AST 19 ALT 18 L Alkaline Phosphatase 113 Ammonia Total Protein 6.4 Albumin 2.6 L 08/18/17 08/18/17 08/18/17 14:20 15:00 15:00 WBC RBC Hgb Hct MCV MCH MCHC RDW Plt Count Total Counted Seg Neutrophils % Seg Neuts % (Manual) Lymphocytes % Lymphocytes % (Manual) Monocytes % Monocytes % (Manual) Eosinophils % Eosinophils % (Manual) Basophils % Basophils % (Manual) Absolute Neutrophils Abs Neuts (Manual) Absolute Lymphocytes Abs Lymphs (Manual) Absolute Monocytes Abs Monocytes (Manual) Absolute Eosinophils Absolute Eos (Manual) Absolute Basophils Abs Basophils (Manual) Toxic Granulation Toxic Vacuolation Platelet Comment Poikilocytosis Anisocytosis Target Cells Ovalocytes PT INR VBG pH 7.39 VBG pCO2 33.0 L VBG HCO3 19.7 L VBG Base Excess -4.5 Sodium Potassium Chloride Carbon Dioxide Anion Gap BUN Creatinine Est GFR ( Amer) Est GFR (Non-Af Amer) Glucose Lactic Acid 1.3 Calcium Total Bilirubin Direct Bilirubin Neonat Total Bilirubin Neonat Direct Bilirubin Neonat Indirect Bili AST ALT Alkaline Phosphatase Ammonia Cancelled Total Protein Albumin - Diagnostic Test Radiology reviewed: Reports reviewed Discharge - Discharge Clinical Impression: Chronic osteomyelitis, ESRD on hemodialysis, Cellulitis of left elbow, Hyperkalemia Fever Qualifiers: Fever type: unspecified Qualified Code(s): R50.9 - Fever, unspecified Vascular catheter infection Qualifiers: Encounter type: initial encounter Qualified Code(s): T82.7XXA - Infection and inflammatory reaction due to other cardiac and vascular devices, implants and grafts, initial encounter Condition: Serious Disposition: ADMITTED INPATIENT Admitting Provider: Hospitalist Unit Admitted: [facility]
[2017-08-18 14:36] LABS: HEMATOCRIT 28.4 % (37.9-51.0); HEMOGLOBIN 9.1 g/dL (13.5-17.0); MEAN CORPUSCULAR HEMOGLOBIN 29.1 pg (27.0-33.4); MEAN CORPUSCULAR HGB CONC 32.2 g/dL (32.0-36.0); MEAN CORPUSCULAR VOLUME 90 fl (80-97); PLATELET COUNT 250 10^3/uL (150-450); RED BLOOD COUNT 3.14 10^6/uL (4.35-5.55); RED CELL DISTRIBUTION WIDTH 16.8 % (11.5-14.0); WHITE BLOOD COUNT 22.4 10^3/uL (4.0-10.5)
[2017-08-18 14:46] LABS: INTERNATIONAL RATION (INR) 1.51
[2017-08-18 14:52] LABS: ALANINE AMINOTRANSFERASE 18 U/L (21-72); ALBUMIN 2.6 g/dL (3.5-5.0); ALKALINE PHOSPHATASE 113 U/L (38-126); ANION GAP 18 (5-19); ASPARTATE AMINO TRANSFERASE 19 U/L (17-59); BILIRUBIN,DIRECT 0.4 mg/dL (0.0-0.4); BILIRUBIN,TOTAL 0.4 mg/dL (0.2-1.3); BLOOD UREA NITROGEN 69 mg/dL (7-20); CALCIUM 9.3 mg/dL (8.4-10.2); CARBON DIOXIDE 17 mmol/L (22-30); CHLORIDE 106 mmol/L (98-107); GLUCOSE 93 mg/dL (75-110); SODIUM 141.3 mmol/L (137-145); TOTAL PROTEIN 6.4 g/dL (6.3-8.2)
[2017-08-18 14:57] LABS: POTASSIUM 6.5 mmol/L (3.6-5.0)
[2017-08-18 15:04] LABS: ABSOLUTE LYMPHOCYTES# (MANUAL) 1.1 10^3/uL (0.5-4.7); ABSOLUTE NEUTROPHILS# (MANUAL) 21.3 10^3/uL (1.7-8.2); BASOPHILS % (MANUAL) 0 % (0-2); EOSINOPHILS % (MANUAL) 0 % (0-6); LYMPHOCYTES % (MANUAL) 5 % (13-45); MONOCYTES % (MANUAL) 0 % (3-13); SEGMENTED NEUTROPHILS % (MAN) 95 % (42-78); TOTAL CELLS COUNTED 100
[2017-08-18 15:06] LABS: ANISOCYTOSIS 1+; OVALOCYTES SLIGHT; PLATELET COMMENT ADEQUATE; POIKILOCYTOSIS SLIGHT; TARGET CELLS SLIGHT; TOXIC GRANULATION 1+; TOXIC VACUOLATION PRESENT
[2017-08-18 15:16] LABS: VENOUS BLOOD BASE EXCESS -4.5 mmol/L; VENOUS BLOOD HCO3 19.7 mmol/L (20-32); VENOUS BLOOD PH 7.39 (7.30-7.42)
[2017-08-18] MEDS ORDERED: ACETAMINOPHEN 120 MG SUPP.RECT PR ONE (15:26)
[2017-08-18] MEDS ORDERED: ACETAMINOPHEN 325 MG SUPP.RECT PR ONE (15:26)
[2017-08-18] MEDS ORDERED: NORMAL SALINE 250 ML IV ONE (15:47)
[2017-08-18] MEDS ORDERED: SODIUM BICARBONATE 8.4% INJ 50 MEQ/50 ML DISP.SYRIN IV ONE (15:53)
[2017-08-18] MEDS ORDERED: INSULIN REG, HUMAN 100 UNIT/ML 3 ML VIAL (PYX) IV ONE (15:54)
[2017-08-18] MEDS ORDERED: DEXTROSE 50%-WATER 25 GM/50 ML DISP.SYRIN IV ONE (15:59)
--- NOTE | 2017-08-18 17:10 | PDOC CONSULTATION ---
Consultation Consult Date: 08/18/17 Attending physician:: LATIA THORNE Consult reason:: Infected PermCath History of Present Illness Admission Date/PCP: 08/18/17 16:28 FRANCINE FRAUSTO MD History of Present Illness: DANIEL MAGUIRE JR is a 67 year old male With end-stage renal failure, currently dialyzing through right IJ permacatheter placed one half years ago according to patient's daughter. Patient has not undergone dialysis for the last 2 weeks because of noncompliance. He has been off DNR back DNR now DNR rescinded. Does have a alf. He is now in the emergency department with sepsis secondary to permacatheter infection. His potassium is in excess of 6 and he is to undergo emergent dialysis by Dr. Thorne through a right IJ permacatheter. Surgery was consulted for permacatheter removal after hemodialysis. Past Medical History Cardiac Medical History: Reports: Congestive Heart Failure, Hypertension Denies: Coronary Artery Disease, DVT, Myocardial Infarction, Hyperlipidema, Pulmonary Embolism Pulmonary Medical History: Denies: Asthma, Bronchitis, Chronic Obstructive Pulmonary Disease (COPD), Pneumonia, Sleep Apnea Neurological Medical History: Denies: Seizures Endocrine Medical History: Denies: Diabetes Mellitus Type 1, Diabetes Mellitus Type 2, Hyperthyroidism, Hypothyroidism Renal/ Medical History: Reports: End Stage Renal Disease Malignancy Medical History: Reports: Skin Cancer GI Medical History: Reports: Cirrhosis, Gastroesophageal Reflux Disease Musculoskeltal Medical History: Reports: Arthritis, Gout Psychiatric Medical History: Reports: Depression Hematology: Denies: Anemia Infectious Medical History: Denies: Clostridium Difficile, Methicillin-Resistant Staph Aureus Past Surgical History Past Surgical History: Reports: Appendectomy, Cholecystectomy, Herniorrhaphy, Orthopedic Surgery - B elbow, R wrist, Vascular Surgery - Perm catheter for dialysis; fistula formation, maturing, for dialysis., Other - Cataract extraction, right ureteral stent Social History Smoking Status: Unknown if Ever Smoked Frequency of Alcohol Use: None Hx Recreational Drug Use: No Drugs: None Hx Prescription Drug Abuse: No Family History Family History: Hypertension Parental Family History Reviewed: No Children Family History Reviewed: No Sibling(s) Family History Reviewed.: No Medication/Allergy Allergies/Adverse Reactions: No Known Allergies Allergy (Verified 06/17/17 16:01) Review of Systems ROS unobtainable: Due to mental status Physical Exam Vital Signs: Temp Pulse Resp BP Pulse Ox 100.9 F H 17 133/57 H 98 08/18/17 13:00 08/18/17 16:01 08/18/17 16:01 08/18/17 16:00 General appearance: PRESENT: other - Patient disabled, cachectic Eye exam: PRESENT: other Respiratory exam: PRESENT: decreased breath sounds Torso Front/Back Image: 1 - Right IJ permacatheter with mild erythema overlying the skin; some crusty drainage but no active foul smell discharge or rufina cellulitis. Results Impressions: Chest X-Ray 08/18/17 13:21 IMPRESSION: Few Pennie lines with trace left pleural fluid. PermCath tip in the right atrium. Assessment & Plan - Diagnosis (1) Sepsis Is this a current diagnosis for this admission?: Yes Plan: Presumably from right IJ permacatheter based on clinical examination; other etiologies may be in the differential. Multiple chronic medical problems including malnutrition, deconditioned state, worse metabolic acid, history of DNR and DNR withdrawal Recommendations: 1. Patient made to proceed with immediate hemodialysis now through existing permacatheter. 2. Will be available to pull permacatheter at the conclusion of dialysis. 3. Advanced directives, CODE STATUS need to be revisited for further surgical intervention undertaken. - Time Time Spent: 50 to 70 Minutes Smoking Cessation Education: over 10 minutes Anticipated discharge: Home - Inpatient Certification Based on my medical assessment, after consideration of the patient's comorbidities, presenting symptoms, or acuity I expect that the services needed warrant INPATIENT care.: Yes I certify that my determination is in accordance with my understanding of Medicare's requirements for reasonable and necessary INPATIENT services [42 CFR 412.3e].: Yes Medical Necessity: Need For IV Fluids, Need for IV Antibiotics
[2017-08-18] MEDS ORDERED: IPRATROPIUM/ALBUTEROL 0.5-2.5 MG/3 ML AMPUL NEB PRN (17:46)
--- NOTE | 2017-08-18 18:06 | EKG REPORT ---
SEVERITY:- BORDERLINE ECG - SINUS RHYTHM LOW VOLTAGE IN FRONTAL LEADS BORDERLINE R WAVE PROGRESSION, ANTERIOR LEADS BORDERLINE T ABNORMALITIES, ANT-LAT LEADS : Confirmed by: John Paul Avalos MD 18-Aug-2017 18:05:34
[2017-08-18 18:16] LABS: PHOSPHORUS 3.3 mg/dL (2.5-4.5)
--- NOTE | 2017-08-18 18:22 | PDOC H&P ---
History of Present Illness Admission Date/PCP: 08/18/17 16:28 FRANCINE FRAUSTO MD Patient complains of: Fever, infected dialysis access History of Present Illness: DANIEL MAGUIRE JR is a 67 year old male with ESRD on HD MWF- has been refusing HD for the past 2 and a half weeks per daughter CHF HTN GERD Cirrhosis Gout Depression Chronic L great toe tip gangrene He lives in a SNF. Healthcare POA is his daughter Lashell [phone]. He requests to be a full code. She reports that he had been decling HD for the past 2 and a half weeks. He was reprtedly doing ok 3 days ago when she saw him He developed fever and was referred for admission. Noted to have hyperkalemia and infected R permacath. The metal treater resolution manager and surgeon resolution manager were notified. The plan is for immediate dialysis followed by removal of the infected permacath. Blood cultures were ordered and Vancomycin and Cefepime were ordered by the ER provider. The patient has no complaints. His L elbow and upper arm are swollen and red. His vascular surgeon is Dr. Aníbal Soler. Past Medical History Cardiac Medical History: Reports: Congestive Heart Failure, Hypertension Neurological Medical History: Denies: Seizures Renal/ Medical History: Reports: End Stage Renal Disease Malignancy Medical History: Reports: Skin Cancer GI Medical History: Reports: Cirrhosis, Gastroesophageal Reflux Disease Musculoskeltal Medical History: Reports: Arthritis, Gout Psychiatric Medical History: Reports: Depression Past Surgical History Past Surgical History: Reports: Appendectomy, Cholecystectomy, Herniorrhaphy, Orthopedic Surgery - B elbow, R wrist, Vascular Surgery - Perm catheter for dialysis; fistula formation, maturing, for dialysis., Other - Cataract extraction, right ureteral stent Social History Smoking Status: Unknown if Ever Smoked Frequency of Alcohol Use: None Hx Recreational Drug Use: No Drugs: None Hx Prescription Drug Abuse: No - Advance Directive Resuscitation Status: Full Code Family History Family History: Hypertension Parental Family History Reviewed: Yes Children Family History Reviewed: Yes Sibling(s) Family History Reviewed.: Yes Medication/Allergy Allergies/Adverse Reactions: No Known Allergies Allergy (Verified 06/17/17 16:01) Review of Systems Constitutional: ABSENT: fever(s) Eyes: ABSENT: visual disturbances Ears: ABSENT: hearing changes Nose, Mouth, and Throat: ABSENT: sore throat Cardiovascular: ABSENT: chest pain, edema Gastrointestinal: ABSENT: abdominal pain, coffee ground emesis, heartburn, vomiting Genitourinary: ABSENT: dysuria Musculoskeletal: PRESENT: joint swelling Integumentary: ABSENT: pruritus Neurological: ABSENT: focal weakness Psychiatric: ABSENT: hallucinations Endocrine: ABSENT: heat intolerance Hematologic/Lymphatic: ABSENT: easy bleeding Allergic/Immunologic: ABSENT: seasonal rhinorrhea Physical Exam Vital Signs: Temp Pulse Resp BP Pulse Ox 100.9 F H 17 133/57 H 98 08/18/17 13:00 08/18/17 16:01 08/18/17 16:01 08/18/17 16:00 General appearance: PRESENT: no acute distress, thin Head exam: PRESENT: normocephalic Eye exam: ABSENT: scleral icterus Ear exam: PRESENT: normal external ear exam Mouth exam: PRESENT: moist Neck exam: ABSENT: tracheal deviation Respiratory exam: PRESENT: clear to auscultation nan, symmetrical, unlabored. ABSENT: crackles Cardiovascular exam: PRESENT: RRR, other - R upper chest wall permacath with purulence and overlying erythema GI/Abdominal exam: PRESENT: normal bowel sounds, soft. ABSENT: tenderness Rectal exam: PRESENT: deferred Extremities exam: PRESENT: joint swelling, other - L elbow and arm swelling and erythema. ABSENT: pedal edema Neurological exam: PRESENT: alert, awake, oriented to person, oriented to place , oriented to situation Psychiatric exam: PRESENT: appropriate affect, normal mood Skin exam: ABSENT: petechiae Results Impressions: Chest X-Ray 08/18/17 13:21 IMPRESSION: Few Pennie lines with trace left pleural fluid. PermCath tip in the right atrium. Assessment & Plan - Diagnosis (1) Vascular catheter infection Qualifiers: Encounter type: initial encounter Qualified Code(s): T82.7XXA - Infection and inflammatory reaction due to other cardiac and vascular devices, implants and grafts, initial encounter Is this a current diagnosis for this admission?: Yes Plan: Blood cultures Antibiotics Catheter removal Consult vascular surgery Culture of catheter tip (2) Cellulitis of left elbow Is this a current diagnosis for this admission?: Yes Plan: US L arm r/o abscess Consult vascular surgery Antibiotics (3) Chronic osteomyelitis Is this a current diagnosis for this admission?: Yes Plan: L foot. On antibiotics (4) ESRD on hemodialysis Is this a current diagnosis for this admission?: Yes Plan: HD per Nephrology service (5) Fever Qualifiers: Fever type: unspecified Qualified Code(s): R50.9 - Fever, unspecified Is this a current diagnosis for this admission?: Yes (6) Hyperkalemia Is this a current diagnosis for this admission?: Yes Plan: Dialysis, monitor (7) Hypertension Is this a current diagnosis for this admission?: Yes Plan: Monitor and resume outpatient meds as tolerated (8) Undernutrition Is this a current diagnosis for this admission?: Yes (9) DVT prophylaxis Is this a current diagnosis for this admission?: Yes Plan: Subcutaneous Heparin - Time Time Spent: Greater than 70 Minutes
[2017-08-18] MEDS ORDERED: VANCOMYCIN HCL 0 MG in DEXTROSE 5%-WATER 250 ML IV NR (18:30)
[2017-08-18] MEDS ORDERED: MAGNESIUM SULFATE/D5W 1 GM/100 ML RTUPB IV ONE (19:30)
--- NOTE | 2017-08-18 19:45 | PDOC CONSULTATION ---
Consultation Consult Date: 08/18/17 Attending physician:: VIRGINIA BEST Consult reason:: I was asked see this patient emergently in the emergency room because of hyperkalemia in a patient with ESRD. History of Present Illness Admission Date/PCP: 08/18/17 16:28 FRANCINE FRAUSTO MD History of Present Illness: DANIEL MAGUIRE JR is a 67 year old male known to me with history of end-stage renal disease supposedly on maintenance hemodialysis 3 times a week, liver cirrhosis, nephrolithiasis, chronic osteomyelitis and chronic back pain who was brought in to the emergency room today from the [facility] because of fever and drainage over his PermCath dialysis catheter. Patient has not showed up for his dialysis treatment since the last dialysis on July 30. Patient has been noncompliant in his dialysis treatment and has been worse for at least the last 2 months. The patient cannot really give me much history so I asked the daughter over the phone. Daughter said that 3 days ago there was an issue when she visited him. Today at around 11 AM she was called by the [facility] staff informing her that the patient will be sent to the emergency room because of a greenish drainage persists PermCath site and fever. When he came to the emergency room the PermCath indeed looks infected and he has temperature of 100-102. He was initially lethargic and confused when he presented. He was also found to have a potassium of 6.5 with an expected elevated BUN and creatinine due to noncompliance with dialysis for the last 19 days. I was then called because of this abnormal findings. I then arrange for emergent hemodialysis treatment in the emergency room for the hyperkalemia. I saw the patient in emergency room during dialysis treatment. He seems comfortable and tolerating dialysis without any much problems. His blood pressures are acceptable. Blood cultures were obtained peripherally into the PermCath. Vascular surgeon, Dr. Ragsdale was also consulted for removal of the PermCath after dialysis tonight. I asked the patient regarding his wishes regarding his dialysis treatment. I discussed with him that he needs to decide if he needs to continue with his hemodialysis maintenance treatment with either inpatient or outpatient and the other option is of course if he wants to be drawn dialysis treatment is hospice. Patient informed me that he had discussion with his daughter and he decided that he will continue to do dialysis treatment. I emphasized the importance of compliance with treatment to prevent episodes like this and patient seems to understood. Apparently the patient also rescinded his DNR status and is now a full code again. I called his daughter Michelle over the phone and discuss patient's condition and wishes. Mihcelle told me that they have been discussing regarding continuation or not continuation of hemodialysis treatment for a while. So as it stands now the patient would like to continue hemodialysis treatment. Michelle also confirmed that the patient wanted to be full code again. I also asked question about patient's appetite because I felt like the patient has been losing weight again. She indicated that she did not think that Steph Feldman is giving his Megace so we will look into that. All her questions answered. Past Medical History Cardiac Medical History: Reports: Atrial Fibrillation, CHF-Diastolic, Hypertension-primary, Pulmonary Hypertension Neurological Medical History: Reports: Other - Lumbar disc herniation with chronic back pain managed by pain management Renal/ Medical History: Reports: End Stage Renal Disease, Hyperphosphatemia, Nephrolithiasis, Proteinuria Malignancy Medical History: Reports: Skin Cancer GI Medical History: Reports: Cirrhosis, Gastroesophageal Reflux Disease, Peptic Ulcer Disease Musculoskeltal Medical History: Reports: Arthritis, Gout Psychiatric Medical History: Reports: Depression, General Anxiety Disorder, Tobacco Dependency Hematology Medical History: Reports Anemia of Chronic Kidney Disease Past Surgical History Past Surgical History: Reports: Appendectomy, Cholecystectomy, Cystostomy - With insertion of ureteral stent, subsequently removed., Dialysis Access Surgery AVF, Herniorrhaphy, Orthopedic Surgery - B elbow, R wrist, Vascular Surgery - Perm catheter for dialysis; fistula formation, maturing, for dialysis. , Other - Cataract extraction, right ureteral stent Social History Information Source: [facility] Records Lives with: Long Term Smoking Status: Current Every Day Smoker Frequency of Alcohol Use: None Hx Recreational Drug Use: No Drugs: None Hx Prescription Drug Abuse: No - Advance Directive Resuscitation Status: Full Code Family History Family History: Malignancy - Breast cancer in his mother, Other - Cirrhosis in his father Parental Family History Reviewed: Yes Children Family History Reviewed: Yes Sibling(s) Family History Reviewed.: Unknown Medication/Allergy Home Medications: Acetaminophen [Tylenol 325 mg Tablet] 650 mg PO Q6HP PRN 08/18/17 Amlodipine Besylate [Norvasc 10 mg Tablet] 10 mg PO DAILY 08/18/17 Calcium Carbonate/Vitamin D3 [Oyster Shell Calcium-Vit D Tab] 1 each PO DAILY Clonidine HCl [Catapres 0.2 mg Tablet] 0.2 mg PO Q12 08/18/17 Folic Acid/Vit B Complex and C [Nephro-Anthony Tablet] 0.8 mg PO DAILY 08/18/17 Isosorbide Mononitrate [Imdur 30 mg Tablet.er] 30 mg PO DAILY 08/18/17 Levothyroxine Sodium [Synthroid 0.025 mg Tablet] 25 mcg PO Q6AM 08/18/17 Metoprolol Succinate [Toprol Xl 25 mg Tab.sr] 25 mg PO Q12 08/18/17 Mirtazapine [Remeron 15 mg Tablet] 15 mg PO QHS 08/18/17 Oxycodone HCl [Oxy-Ir 5 mg Tablet] 5 mg PO Q6HP PRN 08/18/17 Oxycodone HCl [Oxycodone HCl ER] 10 mg PO Q12 08/18/17 Pantoprazole Sodium [Protonix] 40 mg PO BID 08/18/17 Allergies/Adverse Reactions: No Known Allergies Allergy (Verified 06/17/17 16:01) Review of Systems All systems: reviewed and no additional remarkable complaints except as stated Review of Systems: Constitutional: ABSENT: chills, fatigue, headache(s), weight gain, weight loss , admits decreased appetite, found to have fever Eyes: ABSENT: visual disturbances Ears: ABSENT: hearing changes Cardiovascular: ABSENT: chest pain, dyspnea on exertion, edema, orthropnea, palpitations Respiratory: ABSENT: cough, dyspnea, hemoptysis Gastrointestinal: ABSENT: abdominal pain, constipation, diarrhea, hematemesis, hematochezia, nausea, vomiting Genitourinary: ABSENT: dysuria, hematuria Musculoskeletal: ABSENT: joint swelling Integumentary: ABSENT: rash, wounds Neurological: ABSENT: abnormal gait, abnormal speech, confusion, dizziness, focal weakness, numbness, syncope Psychiatric: ABSENT: anxiety, depression Endocrine: ABSENT: cold intolerance, heat intolerance, polydipsia, polyuria Hematologic/Lymphatic: ABSENT: easy bleeding, easy bruising, lymphadenopathy Physical Exam Vital Signs: Temp Pulse Resp BP Pulse Ox 100.9 F H 17 133/57 H 98 08/18/17 13:00 08/18/17 16:01 08/18/17 16:01 08/18/17 16:00 Vitals during dialysis treatment: Blood pressure 125/56, heart rate of 58, blood flow rate of 350 mL/min, dialysate flow rate of 800 mL/min. Exam: General appearance: no acute distress, cooperative, very thin and cachectic Head exam: PRESENT: atraumatic, normocephalic Eye exam: PRESENT: Conjunctiva pale, EOMI, PERRLA. ABSENT: conjunctival injection, scleral icterus Mouth exam: PRESENT: moist, neck supple, tongue midline Neck exam: PRESENT: full ROM. Right PermCath in the right chest appears to be erythematous, the drainage has been clean out by our dialysis nurse so I do not see ABSENT: carotid bruit, JVD, lymphadenopathy, thyromegaly Respiratory exam: PRESENT: Decreased to auscultation bilaterally. ABSENT: rales , rhonchi, stridor, wheezes Cardiovascular exam: PRESENT: RRR, +S1, +S2. ABSENT: systolic murmur Pulses: PRESENT: normal radial pulses, normal dorsalis pedis pulses GI/Abdominal exam: PRESENT: normal bowel sounds, soft. ABSENT: guarding, mass, tenderness Rectal exam: deferred Extremities exam: PRESENT: full ROM. ABSENT: calf tenderness, pedal edema Musculoskeletal: PRESENT: full ROM. ABSENT: deformity Neurological exam: PRESENT: alert, Awake, Oriented to person, Oriented to place , Oriented to time, reflexes normal, CN II-XII grossly intact. ABSENT: motor sensory deficit Psychiatric exam: PRESENT: appropriate affect, normal mood. ABSENT: homicidal ideation, suicidal ideation Skin exam: PRESENT: intact, dry, warm. ABSENT: rash, Results Laboratory Results: Microbiology 08/18/17 16:20 Gram Stain - Preliminary Chest - Chest Wall Wound Culture - Preliminary Laboratory 08/18/17 08/18/17 08/18/17 14:20 14:20 14:20 WBC 22.4 H RBC 3.14 L Hgb 9.1 L Hct 28.4 L MCV 90 MCH 29.1 MCHC 32.2 RDW 16.8 H Plt Count 250 Total Counted 100 Seg Neutrophils % Not Reportable Seg Neuts % (Manual) 95 H Lymphocytes % Not Reportable Lymphocytes % (Manual) 5 L Monocytes % Not Reportable Monocytes % (Manual) 0 L Eosinophils % Not Reportable Eosinophils % (Manual) 0 Basophils % Not Reportable Basophils % (Manual) 0 Absolute Neutrophils Not Reportable Abs Neuts (Manual) 21.3 H Absolute Lymphocytes Not Reportable Abs Lymphs (Manual) 1.1 Absolute Monocytes Not Reportable Abs Monocytes (Manual) 0.0 L Absolute Eosinophils Not Reportable Absolute Eos (Manual) 0.0 Absolute Basophils Not Reportable Abs Basophils (Manual) 0.0 Toxic Granulation 1+ Toxic Vacuolation PRESENT Platelet Comment ADEQUATE Poikilocytosis SLIGHT Anisocytosis 1+ Target Cells SLIGHT Ovalocytes SLIGHT PT 19.0 H INR 1.51 VBG pH VBG pCO2 VBG HCO3 VBG Base Excess Sodium 141.3 Potassium 6.5 H* Chloride 106 Carbon Dioxide 17 L Anion Gap 18 BUN 69 H Creatinine 8.10 H Est GFR ( Amer) 8 L Est GFR (Non-Af Amer) 7 L Glucose 93 Lactic Acid Calcium 9.3 Phosphorus Magnesium Total Bilirubin 0.4 Direct Bilirubin 0.4 Neonat Total Bilirubin Not Reportable Neonat Direct Bilirubin Not Reportable Neonat Indirect Bili Not Reportable AST 19 ALT 18 L Alkaline Phosphatase 113 Ammonia Total Protein 6.4 Albumin 2.6 L Blood Type Antibody Screen 08/18/17 08/18/17 08/18/17 14:20 15:00 15:00 WBC RBC Hgb Hct MCV MCH MCHC RDW Plt Count Total Counted Seg Neutrophils % Seg Neuts % (Manual) Lymphocytes % Lymphocytes % (Manual) Monocytes % Monocytes % (Manual) Eosinophils % Eosinophils % (Manual) Basophils % Basophils % (Manual) Absolute Neutrophils Abs Neuts (Manual) Absolute Lymphocytes Abs Lymphs (Manual) Absolute Monocytes Abs Monocytes (Manual) Absolute Eosinophils Absolute Eos (Manual) Absolute Basophils Abs Basophils (Manual) Toxic Granulation Toxic Vacuolation Platelet Comment Poikilocytosis Anisocytosis Target Cells Ovalocytes PT INR VBG pH 7.39 VBG pCO2 33.0 L VBG HCO3 19.7 L VBG Base Excess -4.5 Sodium Potassium Chloride Carbon Dioxide Anion Gap BUN Creatinine Est GFR ( Amer) Est GFR (Non-Af Amer) Glucose Lactic Acid 1.3 Calcium Phosphorus Magnesium Total Bilirubin Direct Bilirubin Neonat Total Bilirubin Neonat Direct Bilirubin Neonat Indirect Bili AST ALT Alkaline Phosphatase Ammonia Cancelled Total Protein Albumin Blood Type Antibody Screen 08/18/17 08/18/17 08/18/17 16:07 16:07 16:07 WBC RBC Hgb Hct MCV MCH MCHC RDW Plt Count Total Counted Seg Neutrophils % Seg Neuts % (Manual) Lymphocytes % Lymphocytes % (Manual) Monocytes % Monocytes % (Manual) Eosinophils % Eosinophils % (Manual) Basophils % Basophils % (Manual) Absolute Neutrophils Abs Neuts (Manual) Absolute Lymphocytes Abs Lymphs (Manual) Absolute Monocytes Abs Monocytes (Manual) Absolute Eosinophils Absolute Eos (Manual) Absolute Basophils Abs Basophils (Manual) Toxic Granulation Toxic Vacuolation Platelet Comment Poikilocytosis Anisocytosis Target Cells Ovalocytes PT INR VBG pH VBG pCO2 VBG HCO3 VBG Base Excess Sodium Potassium Chloride Carbon Dioxide Anion Gap BUN Creatinine Est GFR ( Amer) Est GFR (Non-Af Amer) Glucose Lactic Acid Calcium Phosphorus 3.3 Magnesium 1.2 L* Total Bilirubin Direct Bilirubin Neonat Total Bilirubin Neonat Direct Bilirubin Neonat Indirect Bili AST ALT Alkaline Phosphatase Ammonia 26.0 Total Protein Albumin Blood Type A POSITIVE Antibody Screen NEGATIVE Impressions: Chest X-Ray 08/18/17 13:21 IMPRESSION: Few Pennie lines with trace left pleural fluid. PermCath tip in the right atrium. Assessment & Plan - Diagnosis (1) ESRD on hemodialysis Is this a current diagnosis for this admission?: Yes Plan: Patient has been noncompliant on dialysis treatment but has agreed to continue dialysis at this time. Patient is currently being dialyzed. We will do dialysis today for 2.5 hours, using the patient's right IJ PermCath, with one K bath for the first 1.5 hours followed by 2 potassium bath, blood flow rate of 350 mL per minute, dialysate flow rate of 800 mL per minute, ultrafiltration 0-500 mL as tolerated, no heparin and no Procrit during dialysis. Patient dialysis catheter will be removed after dialysis today. He will have a catheter free holiday for at least the next 24-36 hours and a dialysis catheter will be placed on Friday before the next dialysis treatment. (2) Hyperkalemia Is this a current diagnosis for this admission?: Yes Plan: This is due to noncompliance with hemodialysis treatment as an outpatient. Dialysis treatment is being done currently. (3) Vascular catheter infection Qualifiers: Encounter type: initial encounter Qualified Code(s): T82.7XXA - Infection and inflammatory reaction due to other cardiac and vascular devices, implants and grafts, initial encounter Is this a current diagnosis for this admission?: Yes Plan: Blood cultures where obtained peripherally and through the PermCath. Patient was given first dose of cefepime and will be given vancomycin intravenously after dialysis treatment. Antibiotics will be continued throughout hospitalization. (4) Anemia in chronic kidney disease (CKD) Is this a current diagnosis for this admission?: Yes Plan: We will give Procrit and or iron as necessary during hospitalization except today. (5) Hypertension Is this a current diagnosis for this admission?: Yes Plan: Controlled. (6) Undernutrition Is this a current diagnosis for this admission?: Yes Plan: We will reevaluate and possibly use of Megace during this hospitalization. - Notes Notes: Thank you very much for this consultation. - Time Time Spent: Greater than 70 Minutes
[2017-08-18] MEDS: HEPARIN SOD (PORCINE) 5,000 UNIT/ML 1 ML SYRINGE SUBCUT SCH (20:00)
[2017-08-18] MEDS ORDERED: VANCOMYCIN HCL 1,000 MG in DEXTROSE 5%-WATER 250 ML IV ONE (20:00)
[2017-08-18] MEDS ORDERED: LIDOCAINE 1% INJ (10 MG/ML) 10 ML MDV INJ ONE (20:44)
[2017-08-18] MEDS ORDERED: LIDOCAINE 1% INJ-PF (10 MG/ML) 30 ML SDV ONE (20:47)
--- NOTE | 2017-08-18 20:57 | Operative Report ---
Operative Report DATE OF SURGERY: 08/18/17 PREOPERATIVE DIAGNOSIS: Sepsis POSTOPERATIVE DIAGNOSIS: same OPERATION: Removal of right IJ permacatheter SURGEON: DORINA REDDING ANESTHESIA: Local TISSUE REMOVED OR ALTERED: Permacatheter COMPLICATIONS: None ESTIMATED BLOOD LOSS: Scant INTRAOPERATIVE FINDINGS: See below PROCEDURE: Exit site of right IJ permacatheter prepped with Betadine and anesthetized 1% lidocaine with epinephrine. Timeout conducted Using gentle traction, the perm catheter and cuff were removed uneventfully. Tip of the catheter was sent for Gram stain culture and sensitivity. Exit site oversewn with a 3-0 Prolene suture compressive dressing applied. Patient tolerated procedure well.
[2017-08-18] MEDS: ACETAMINOPHEN 325 MG TABLET PO PRN (23:37)
[2017-08-19 05:24] LABS: MEAN CORPUSCULAR HEMOGLOBIN 29.1 pg (27.0-33.4); MEAN CORPUSCULAR HGB CONC 33.1 g/dL (32.0-36.0); MEAN CORPUSCULAR VOLUME 88 fl (80-97); PLATELET COUNT 159 10^3/uL (150-450); RED BLOOD COUNT 2.73 10^6/uL (4.35-5.55); RED CELL DISTRIBUTION WIDTH 16.6 % (11.5-14.0); WHITE BLOOD COUNT 15.7 10^3/uL (4.0-10.5)
[2017-08-19] MEDS: HEPARIN SOD (PORCINE) 5,000 UNIT/ML 1 ML SYRINGE SUBCUT SCH ×2 (06:49→18:40)
[2017-08-19] MEDS: LANSOPRAZOLE 30 MG TAB.RAP.DR PO SCH (06:49)
[2017-08-19 07:23] LABS: ANION GAP 10 (5-19); CALCIUM 7.8 mg/dL (8.4-10.2); CHLORIDE 101 mmol/L (98-107); GLUCOSE 85 mg/dL (75-110); PHOSPHORUS 2.2 mg/dL (2.5-4.5); SODIUM 139.6 mmol/L (137-145)
[2017-08-19 07:26] LABS: BLOOD UREA NITROGEN 27 mg/dL (7-20); CARBON DIOXIDE 29 mmol/L (22-30); POTASSIUM 3.8 mmol/L (3.6-5.0)
[2017-08-19 08:39] LABS: ABSOLUTE MONOCYTES # (MANUAL) 0.5 10^3/uL (0.1-1.4); ABSOLUTE NEUTROPHILS# (MANUAL) 15.2 10^3/uL (1.7-8.2); ANISOCYTOSIS 1+; BASOPHILS % (MANUAL) 0 % (0-2); EOSINOPHILS % (MANUAL) 0 % (0-6); HYPOCHROMASIA SLIGHT; LYMPHOCYTES % (MANUAL) 0 % (13-45); MONOCYTES % (MANUAL) 3 % (3-13); OVALOCYTES SLIGHT; SEGMENTED NEUTROPHILS % (MAN) 97 % (42-78); TARGET CELLS SLIGHT; TOTAL CELLS COUNTED 100; TOXIC GRANULATION SLIGHT
[2017-08-19 08:40] LABS: PLATELET COMMENT ADEQUATE; POIKILOCYTOSIS SLIGHT
[2017-08-19] MEDS: MAGNESIUM OXIDE 400 MG TABLET PO SCH (09:03)
[2017-08-19] MEDS: LACTOBACILLUS ACIDOPHILUS 250 MG TAB PO SCH ×2 (09:03→17:19)
[2017-08-19] MEDS: DOCUSATE SODIUM 100 MG CAPSULE PO SCH (09:03)
--- NOTE | 2017-08-19 11:05 | RADIOLOGY REPORT (SQ) ---
EXAM DESCRIPTION: U/S EXTREMITY NONVASCULAR COMP COMPLETED DATE/TIME: 08/19/2017 9:58 am REASON FOR STUDY: L arm AV fistula ? abscess COMPARISON: None. TECHNIQUE: Dynamic and static grayscale images acquired of the localized site of clinical concern an d recorded on PACS. Additional selected color Doppler and spectral images recorded. SITE OF CONCERN: Right arm fistula. LIMITATIONS: None. FINDINGS: SKIN AND SUBCUTANEOUS TISSUES: Regional non loculated subcutaneous edema about the patient 's fistula. No focal or drainable collections. DEEP SOFT TISSUES/MUSCLES: Deep soft tissue mild edema without focal collection. VASCULAR: Grossly patent fistula, full evaluation not performed. OTHER: No other significant finding. IMPRESSION: 1. Arm edema without abscess suggested. TECHNICAL DOCUMENTATION: JOB ID: [id number]- All Rights Reserved Reading location - IP/workstation name: [email or web address]
[2017-08-19] MEDS ORDERED: NICOTINE 21 MG/24 HR PATCH.TD24 TD PRN (13:46)
--- NOTE | 2017-08-19 13:49 | PDOC PROGRESS REPORT ---
Subjective Progress Note for:: 08/19/17 Subjective:: No complaints Reason For Visit: HYPERKALEMIA,INFECTED HD ACCESS Physical Exam Vital Signs: Temp Pulse Resp BP Pulse Ox 97.9 F 65 14 149/51 H 98 08/19/17 12:15 08/19/17 12:15 08/19/17 12:15 08/19/17 12:15 08/19/17 12:15 Intake & Output 08/18/17 08/19/17 08/20/17 06:59 06:59 06:59 Intake Total 517 118 Output Total 500 Balance 17 118 Weight 50 kg General appearance: PRESENT: thin Head exam: PRESENT: normocephalic Ear exam: PRESENT: normal external ear exam Mouth exam: PRESENT: moist Respiratory exam: PRESENT: symmetrical, unlabored. ABSENT: rhonchi Cardiovascular exam: PRESENT: RRR, systolic murmur GI/Abdominal exam: PRESENT: normal bowel sounds, soft. ABSENT: tenderness Rectal exam: PRESENT: deferred Results Laboratory Results: 08/19/17 04:43 08/19/17 06:16 08/19/17 08/19/17 08/19/17 04:43 04:43 04:43 WBC 15.7 H RBC 2.73 L Hgb 8.0 L Hct 24.0 L MCV 88 MCH 29.1 MCHC 33.1 RDW 16.6 H Plt Count 159 Seg Neutrophils % Not Reportable Lymphocytes % Not Reportable Monocytes % Not Reportable Eosinophils % Not Reportable Basophils % Not Reportable Absolute Neutrophils Not Reportable Absolute Lymphocytes Not Reportable Absolute Monocytes Not Reportable Absolute Eosinophils Not Reportable Absolute Basophils Not Reportable Sodium Cancelled Potassium Cancelled Chloride Cancelled Carbon Dioxide Cancelled Anion Gap Cancelled BUN Cancelled Creatinine Cancelled Est GFR ( Amer) Cancelled Est GFR (Non-Af Amer) Cancelled Glucose Cancelled Calcium Cancelled Phosphorus Cancelled Magnesium Cancelled TSH 3.34 08/19/17 06:16 WBC RBC Hgb Hct MCV MCH MCHC RDW Plt Count Seg Neutrophils % Lymphocytes % Monocytes % Eosinophils % Basophils % Absolute Neutrophils Absolute Lymphocytes Absolute Monocytes Absolute Eosinophils Absolute Basophils Sodium 139.6 Potassium 3.8 D Chloride 101 Carbon Dioxide 29 D Anion Gap 10 BUN 27 H D Creatinine 3.92 H Est GFR ( Amer) 19 L Est GFR (Non-Af Amer) 15 L Glucose 85 Calcium 7.8 L Phosphorus 2.2 L Magnesium 1.7 TSH Impressions: Extremity Ultrasound 08/18/17 00:00 IMPRESSION: 1. Arm edema without abscess suggested. Chest X-Ray 08/18/17 13:21 IMPRESSION: Few Pennie lines with trace left pleural fluid. PermCath tip in the right atrium. Assessment & Plan - Diagnosis (1) Vascular catheter infection Qualifiers: Encounter type: initial encounter Qualified Code(s): T82.7XXA - Infection and inflammatory reaction due to other cardiac and vascular devices, implants and grafts, initial encounter Is this a current diagnosis for this admission?: Yes Plan: Follow up Blood cultures day 2 vanc and Cefepime Catheter removed Consult vascular surgery Culture of catheter tip (2) Cellulitis of left elbow Is this a current diagnosis for this admission?: Yes Plan: US L arm r/o abscess- pending Consult vascular surgery Antibiotics (3) Chronic osteomyelitis Is this a current diagnosis for this admission?: Yes Plan: L foot. On antibiotics (4) ESRD on hemodialysis Is this a current diagnosis for this admission?: Yes Plan: HD per Nephrology service (5) Fever Qualifiers: Fever type: unspecified Qualified Code(s): R50.9 - Fever, unspecified Is this a current diagnosis for this admission?: Yes (6) Hyperkalemia Is this a current diagnosis for this admission?: Yes Plan: Dialysis, monitor (7) Hypertension Is this a current diagnosis for this admission?: Yes Plan: Resume outpatient meds as BP tolerates (8) Undernutrition Is this a current diagnosis for this admission?: Yes Plan: Encourage PO intake (9) DVT prophylaxis Is this a current diagnosis for this admission?: Yes Plan: Subcutaneous Heparin (10) Tobacco dependence Is this a current diagnosis for this admission?: Yes Plan: Nicotine patch - Time Time Spent with patient: 25-34 minutes
[2017-08-19] MEDS: OXYCODONE HCL IR 5 MG TABLET PO PRN (17:17)
[2017-08-19] MEDS: AMLODIPINE BESYLATE 10 MG TABLET PO SCH (17:18)
[2017-08-19] MEDS ORDERED: METOPROLOL SUCCINATE 25 MG TAB.SR.24H PO SCH (18:00)
[2017-08-19] MEDS ORDERED: CLONIDINE HCL 0.2 MG TABLET PO SCH (18:00)
--- NOTE | 2017-08-19 18:10 | PDOC PROGRESS REPORT ---
Subjective Progress Note for:: 08/19/17 Subjective:: Patient is stable and does not have any new complaints. His right IJ PermCath was removed by Dr. Ragsdale last night after dialysis. He will have a new trialysis catheter tomorrow to be placed by Dr. Soler. Reason For Visit: HYPERKALEMIA,INFECTED HD ACCESS, ESRD Physical Exam Vital Signs: Temp Pulse Resp BP Pulse Ox 98.8 F 64 16 133/57 H 98 08/19/17 15:27 08/19/17 17:56 08/19/17 17:56 08/19/17 15:27 08/19/17 15:27 Intake & Output 08/18/17 08/19/17 08/20/17 06:59 06:59 06:59 Intake Total 517 118 Output Total 500 Balance 17 118 Weight 50 kg Exam: General appearance: PRESENT: no acute distress, cooperative, well-developed, well-nourished Head exam: PRESENT: atraumatic, normocephalic Eye exam: PRESENT: conjunctiva pale, PERRLA. ABSENT: scleral icterus Neck exam: ABSENT: JVD Respiratory exam: PRESENT: Diminished breath sounds. ABSENT: crackles, rales, rhonchi, unlabored, wheezes Cardiovascular exam: PRESENT: Irregular rate rhythm -+S1, +S2. ABSENT: diastolic murmur, systolic murmur GI/Abdominal exam: PRESENT: normal bowel sounds, soft. ABSENT: guarding, mass, tenderness Extremities exam: ABSENT: No edema Neurological exam: PRESENT: alert, awake, oriented to person, place and time. Skin exam: PRESENT: dry, warm, Results Laboratory Results: 08/19/17 04:43 08/19/17 06:16 08/19/17 08/19/17 08/19/17 04:43 04:43 04:43 WBC 15.7 H RBC 2.73 L Hgb 8.0 L Hct 24.0 L MCV 88 MCH 29.1 MCHC 33.1 RDW 16.6 H Plt Count 159 Seg Neutrophils % Not Reportable Lymphocytes % Not Reportable Monocytes % Not Reportable Eosinophils % Not Reportable Basophils % Not Reportable Absolute Neutrophils Not Reportable Absolute Lymphocytes Not Reportable Absolute Monocytes Not Reportable Absolute Eosinophils Not Reportable Absolute Basophils Not Reportable Sodium Cancelled Potassium Cancelled Chloride Cancelled Carbon Dioxide Cancelled Anion Gap Cancelled BUN Cancelled Creatinine Cancelled Est GFR ( Amer) Cancelled Est GFR (Non-Af Amer) Cancelled Glucose Cancelled Calcium Cancelled Phosphorus Cancelled Magnesium Cancelled TSH 3.34 08/19/17 06:16 WBC RBC Hgb Hct MCV MCH MCHC RDW Plt Count Seg Neutrophils % Lymphocytes % Monocytes % Eosinophils % Basophils % Absolute Neutrophils Absolute Lymphocytes Absolute Monocytes Absolute Eosinophils Absolute Basophils Sodium 139.6 Potassium 3.8 D Chloride 101 Carbon Dioxide 29 D Anion Gap 10 BUN 27 H D Creatinine 3.92 H Est GFR ( Amer) 19 L Est GFR (Non-Af Amer) 15 L Glucose 85 Calcium 7.8 L Phosphorus 2.2 L Magnesium 1.7 TSH Impressions: Extremity Ultrasound 08/18/17 00:00 IMPRESSION: 1. Arm edema without abscess suggested. Chest X-Ray 08/18/17 13:21 IMPRESSION: Few Pennie lines with trace left pleural fluid. PermCath tip in the right atrium. Assessment & Plan - Diagnosis (1) ESRD on hemodialysis Is this a current diagnosis for this admission?: Yes Plan: We will plan for dialysis tomorrow after placement of trialysis catheter. Patient reiterates that he wishes to continue hemodialysis treatment. (2) Hyperkalemia Is this a current diagnosis for this admission?: Yes Plan: Resolved after dialysis. (3) Vascular catheter infection Qualifiers: Encounter type: initial encounter Qualified Code(s): T82.7XXA - Infection and inflammatory reaction due to other cardiac and vascular devices, implants and grafts, initial encounter Is this a current diagnosis for this admission?: Yes Plan: Blood cultures have been positive for gram-positive cocci in clusters. Continue IV antibiotics. Plan is to place a temporary trialysis catheter until blood cultures became negative. At that time a new PermCath can then be placed. Considering the patient has been very noncompliant, I think we should treat the infection here as adequately as possible since he would need IV antibiotics. He will be best served if he finishes the antibiotics here since he does not always show up on dialysis as an outpatient to receive any IV antibiotics to be given that way. (4) Anemia in chronic kidney disease (CKD) Is this a current diagnosis for this admission?: Yes Plan: We will give Procrit on dialysis. (5) Hypertension Is this a current diagnosis for this admission?: Yes Plan: Continue blood pressure medications but hold them in a.m. before dialysis treatment. (6) Undernutrition Is this a current diagnosis for this admission?: Yes Plan: We will try Megace to increase his appetite. - Time Time with patient: 15-25 minutes
[2017-08-19] MEDS: METOPROLOL SUCCINATE 25 MG TAB.SR.24H PO SCH (18:40)
[2017-08-19] MEDS: CLONIDINE HCL 0.2 MG TABLET PO SCH (18:40)
[2017-08-19] MEDS: ISOSORBIDE MONONITRATE 30 MG TAB.ER.24H PO SCH (22:09)
[2017-08-19] MEDS: MIRTAZAPINE 15 MG TABLET PO SCH (22:09)
[2017-08-20] MEDS ORDERED: NORMAL SALINE 1000 ML 1,000 ML IV PRN (05:00)
[2017-08-20] MEDS ORDERED: HEPARIN SOD (PORCINE) 1,000 UNIT/ML 10 ML VIAL IV PRN ×2 (05:00→14:30)
[2017-08-20] MEDS ORDERED: EPOETIN ALFA INJ 40000 UNIT/1 ML (RENAL) IV PRN (05:00)
[2017-08-20] MEDS: METOPROLOL SUCCINATE 25 MG TAB.SR.24H PO SCH ×2 (05:09→17:17)
[2017-08-20] MEDS: CLONIDINE HCL 0.2 MG TABLET PO SCH ×2 (05:09→17:16)
[2017-08-20] MEDS: LANSOPRAZOLE 30 MG TAB.RAP.DR PO SCH (05:18)
[2017-08-20] MEDS: LEVOTHYROXINE SODIUM 0.025 MG TABLET PO SCH (05:18)
[2017-08-20] MEDS: HEPARIN SOD (PORCINE) 5,000 UNIT/ML 1 ML SYRINGE SUBCUT SCH ×2 (05:20→17:15)
[2017-08-20 06:01] LABS: HEMATOCRIT 25.4 % (37.9-51.0); HEMOGLOBIN 8.5 g/dL (13.5-17.0); MEAN CORPUSCULAR HEMOGLOBIN 29.5 pg (27.0-33.4); MEAN CORPUSCULAR HGB CONC 33.3 g/dL (32.0-36.0); MEAN CORPUSCULAR VOLUME 89 fl (80-97); PLATELET COUNT 139 10^3/uL (150-450); RED BLOOD COUNT 2.87 10^6/uL (4.35-5.55); RED CELL DISTRIBUTION WIDTH 17.2 % (11.5-14.0); WHITE BLOOD COUNT 7.6 10^3/uL (4.0-10.5)
[2017-08-20 06:10] LABS: ANION GAP 7 (5-19); BLOOD UREA NITROGEN 32 mg/dL (7-20); CALCIUM 7.6 mg/dL (8.4-10.2); CARBON DIOXIDE 28 mmol/L (22-30); CHLORIDE 103 mmol/L (98-107); GLUCOSE 77 mg/dL (75-110); PHOSPHORUS 2.8 mg/dL (2.5-4.5); POTASSIUM 4.1 mmol/L (3.6-5.0); SODIUM 138.4 mmol/L (137-145)
[2017-08-20 06:30] LABS: ABSOLUTE LYMPHOCYTES# (MANUAL) 0.8 10^3/uL (0.5-4.7); ABSOLUTE MONOCYTES # (MANUAL) 0.4 10^3/uL (0.1-1.4); ABSOLUTE NEUTROPHILS# (MANUAL) 6.4 10^3/uL (1.7-8.2); BAND NEUTROPHILS % (MANUAL) 1 % (3-5); BASOPHILS % (MANUAL) 0 % (0-2); EOSINOPHILS % (MANUAL) 1 % (0-6); LYMPHOCYTES % (MANUAL) 10 % (13-45); MONOCYTES % (MANUAL) 5 % (3-13); SEGMENTED NEUTROPHILS % (MAN) 83 % (42-78); TOTAL CELLS COUNTED 100
[2017-08-20 06:33] LABS: ANISOCYTOSIS 1+; HYPOCHROMASIA SLIGHT; OVALOCYTES SLIGHT; PLATELET COMMENT DECREASED; POIKILOCYTOSIS SLIGHT; TARGET CELLS SLIGHT
[2017-08-20] MEDS ORDERED: FOLIC ACID PO SCH (10:00)
[2017-08-20] MEDS ORDERED: (PENDING PHARMACY ID) (Calcium Carbonate/Vitamin D3 [Oyster Shell 500-Vit D3 200 Tb] 1 EAC PO SCH (10:00)
[2017-08-20] MEDS ORDERED: VIT B COMPLEX AND C PO SCH (10:00)
[2017-08-20] MEDS: LACTOBACILLUS ACIDOPHILUS 250 MG TAB PO SCH ×2 (10:19→17:16)
[2017-08-20] MEDS: FOLIC ACID/VITAMIN B COMP W-C CAPSULE PO SCH (10:19)
[2017-08-20] MEDS: DOCUSATE SODIUM 100 MG CAPSULE PO SCH (10:19)
[2017-08-20] MEDS: MAGNESIUM OXIDE 400 MG TABLET PO SCH (10:19)
[2017-08-20] MEDS: MEGESTROL ACETATE SUSP 400 MG/10 ML UDCUP PO SCH (10:20)
[2017-08-20] MEDS: CALCIUM CARBONATE 250 MG/VITAMIN D3 125 UNIT TABLET PO SCH (10:20)
[2017-08-20] MEDS ORDERED: EPOETIN ALFA INJ 20000 UNIT/1 ML VIAL (RENAL) IV PRN (14:00)
--- NOTE | 2017-08-20 15:42 | PDOC PROGRESS REPORT ---
Subjective Progress Note for:: 08/20/17 Subjective:: No current complaints. He is unable to tell me why he is here, thinks perhaps it has something to do with radiofrequency ablation. Was unable to tell me where he was. Reason For Visit: HYPERKALEMIA,INFECTED HD ACCESS Physical Exam Vital Signs: Temp Pulse Resp BP Pulse Ox 98.8 F 65 16 152/58 H 94 08/20/17 08:02 08/20/17 14:00 08/20/17 09:47 08/20/17 08:02 08/20/17 09:47 Intake & Output 08/19/17 08/20/17 08/21/17 05:59 05:59 05:59 Intake Total 0 1002 0 Output Total 500 Balance -500 1002 0 Weight 110 lb 3.698 oz 119 lb 0.794 oz General appearance: PRESENT: no acute distress, cooperative, other - Cachectic Respiratory exam: PRESENT: clear to auscultation nan Cardiovascular exam: PRESENT: RRR GI/Abdominal exam: PRESENT: soft Neurological exam: PRESENT: altered, awake, oriented to person. ABSENT: oriented to place, oriented to time, oriented to situation Psychiatric exam: PRESENT: flat affect Skin exam: PRESENT: dry, warm Results Laboratory Results: 08/20/17 05:16 08/20/17 05:16 08/20/17 08/20/17 05:16 05:16 WBC 7.6 RBC 2.87 L Hgb 8.5 L Hct 25.4 L MCV 89 MCH 29.5 MCHC 33.3 RDW 17.2 H Plt Count 139 L Seg Neutrophils % Not Reportable Lymphocytes % Not Reportable Monocytes % Not Reportable Eosinophils % Not Reportable Basophils % Not Reportable Absolute Neutrophils Not Reportable Absolute Lymphocytes Not Reportable Absolute Monocytes Not Reportable Absolute Eosinophils Not Reportable Absolute Basophils Not Reportable Sodium 138.4 Potassium 4.1 Chloride 103 Carbon Dioxide 28 Anion Gap 7 BUN 32 H Creatinine 4.05 H Est GFR ( Amer) 18 L Est GFR (Non-Af Amer) 15 L Glucose 77 Calcium 7.6 L Phosphorus 2.8 Magnesium 1.7 Impressions: Extremity Ultrasound 08/18/17 00:00 IMPRESSION: 1. Arm edema without abscess suggested. Chest X-Ray 08/18/17 13:21 IMPRESSION: Few Pennie lines with trace left pleural fluid. PermCath tip in the right atrium. Assessment & Plan - Diagnosis (1) MRSA (methicillin resistant Staphylococcus aureus) septicemia Is this a current diagnosis for this admission?: Yes Plan: Continue vancomycin. Stop cefepime. (2) Encephalopathy Is this a current diagnosis for this admission?: Yes Plan: Unclear chronicity. Continue to monitor with improvement in his infection. He is from a long term. (3) ESRD on hemodialysis Is this a current diagnosis for this admission?: Yes Plan: For a new dialysis catheter tomorrow. Nephrology following. (4) Protein-calorie malnutrition, moderate Is this a current diagnosis for this admission?: Yes
[2017-08-20] MEDS: AMLODIPINE BESYLATE 10 MG TABLET PO SCH (17:16)
[2017-08-20] MEDS ORDERED: VANCOMYCIN HCL 750 MG in DEXTROSE 5%-WATER 250 ML IV SCH (18:00)
--- NOTE | 2017-08-20 18:50 | Progress Note ---
Provider Note Provider Note: ID Consult Note Asked to review chart by Pharmacy. Pt not seen or examined. Reviewed VS, provider reports, imaging reports, labs. Mr. 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 Pt presented to [place] on 08/18/17 for fever up to 101 F on day of admission and erythema and purulence at the site of his permcath. Pt was noted to be lethargic and confused initially and to have L elbow and upper arm swelling and erythema. WBC on presentation was 22k. BCx from 08/18 preliminarily were reported as having GPCs in both sets obtained peripherally and also from two sets of BCx drawn off of the line. Wound culture from the purulent drainage at the site of the catheter grew MRSA with vancomycin ERNESTO 2. Pt had been noncompliant with HD for the past 19 days and had elevated BUN and potassium on presentation, requiring dialysis then permcath removal on 08/18. On 08/19 pt had U/S of LUE performed that showed regional non-loculated edema about the patient's fistula without focal or drainable collections. Pt has been receiving IV vancomycin. He has had no fever since 08/18 and initial leukocytosis has now normalized. Impression/Recommendations complicated MRSA bacteremia secondary to infected hemodialysis catheter - Pt has purulence and erythema at the site of the catheter, same organism in peripheral BCx as from BCx drawn from the line and culture from the pus at the site prior to removal of the catheter - Recommend repeating BCx - TTE to screen for endocarditis - Avoid placement of a more permanent dialysis access until clearance of bacteremia has been demonstrated - Remain vigilant for evidence of metastatic infectious foci by history and exam and pursue workup as appropriate (e.g. pursuit of MRI spine if pt had point bony spinal tenderness on palpation or worsening of chronic back pain, arthrocentesis to evaluate possible septic joint if painful ROM developed in conjunction with erythema, etc.) - Edema and erythema centered about the patient's LUE and AVF site is concerning , although U/S did not show drainable abscess. Consider consulting with pt's vascular surgeon, if not already done. - Choice of antibiotic treatment: Recommend switching to IV daptomycin 6-8 mg/ kg (around 400 mg) q 48h and checking baseline CPK. With MRSA isolates that have vancomycin ERNESTO of 2, even though reported as sensitive, achieving a therapeutic target becomes more difficult. Generally, our practice pattern has been to switch to daptomycin in this setting, but ultimately the patient's clinical response should determine continued use of vancomycin, and the question of antibiotic selection can be revisited. - Duration of treatment: Anticipate at least 4 weeks of therapy from date of negative blood cultures George Mitchell MD [facility] pager [phone]
--- NOTE | 2017-08-20 18:52 | PDOC PROGRESS REPORT ---
Subjective Progress Note for:: 08/20/17 Subjective:: Saw the patient during dialysis treatment this afternoon at around 2:30 PM. He looks better than when he came in and he claims that he feels better as well. Otherwise he denies any other complaints. He was tolerating dialysis well when I saw him. Reason For Visit: HYPERKALEMIA,INFECTED HD ACCESS Physical Exam Vital Signs: Temp Pulse Resp BP Pulse Ox 98.6 F 65 14 140/51 H 99 08/20/17 11:47 08/20/17 14:00 08/20/17 11:47 08/20/17 11:47 08/20/17 11:47 Intake & Output 08/19/17 08/20/17 08/21/17 06:59 06:59 06:59 Intake Total 517 485 468 Output Total 500 Balance 17 485 468 Weight 50 kg 54 kg Vitals on dialysis: Blood pressure 150/82, heart rate of 86, blood flow rate of 450 mL/min, dialysate flow rate of 800 mL/min. Exam: General appearance: PRESENT: no acute distress, cooperative, thin and emaciated Head exam: PRESENT: atraumatic, normocephalic Eye exam: PRESENT: conjunctiva pale but looks better than admission, PERRLA. ABSENT: scleral icterus Neck exam: ABSENT: JVD Respiratory exam: PRESENT: Normal breath sounds. ABSENT: crackles, rales, rhonchi, unlabored, wheezes Cardiovascular exam: PRESENT: Regular rate rhythm -+S1, +S2. ABSENT: diastolic murmur, systolic murmur GI/Abdominal exam: PRESENT: normal bowel sounds, soft. ABSENT: guarding, mass, tenderness Extremities exam: ABSENT: No edema Neurological exam: PRESENT: alert, awake, oriented to person, place and time. Skin exam: PRESENT: dry, warm, Results Laboratory Results: 08/20/17 05:16 08/20/17 05:16 08/20/17 08/20/17 05:16 05:16 WBC 7.6 RBC 2.87 L Hgb 8.5 L Hct 25.4 L MCV 89 MCH 29.5 MCHC 33.3 RDW 17.2 H Plt Count 139 L Seg Neutrophils % Not Reportable Lymphocytes % Not Reportable Monocytes % Not Reportable Eosinophils % Not Reportable Basophils % Not Reportable Absolute Neutrophils Not Reportable Absolute Lymphocytes Not Reportable Absolute Monocytes Not Reportable Absolute Eosinophils Not Reportable Absolute Basophils Not Reportable Sodium 138.4 Potassium 4.1 Chloride 103 Carbon Dioxide 28 Anion Gap 7 BUN 32 H Creatinine 4.05 H Est GFR ( Amer) 18 L Est GFR (Non-Af Amer) 15 L Glucose 77 Calcium 7.6 L Phosphorus 2.8 Magnesium 1.7 Impressions: Extremity Ultrasound 08/18/17 00:00 IMPRESSION: 1. Arm edema without abscess suggested. Chest X-Ray 08/18/17 13:21 IMPRESSION: Few Pennie lines with trace left pleural fluid. PermCath tip in the right atrium. Assessment & Plan - Diagnosis (1) ESRD on hemodialysis Is this a current diagnosis for this admission?: Yes Plan: We did dialysis today for 2 hours and 50 minutes, using the patient's trialysis catheter, with 3 potassium bath, blood flow rate of 450 mL per minute, dialysate flow rate of 800 mL per minute, ultrafiltration 2 L, no heparin and Procrit with 20,000 units during dialysis intravenously. We will continue dialysis support while here in the hospital. Patient wishes to continue hemodialysis treatment although he has been very noncompliant in the past. (2) Hyperkalemia Is this a current diagnosis for this admission?: Yes Plan: Resolved after dialysis. (3) Vascular catheter infection Qualifiers: Encounter type: initial encounter Qualified Code(s): T82.7XXA - Infection and inflammatory reaction due to other cardiac and vascular devices, implants and grafts, initial encounter Is this a current diagnosis for this admission?: Yes Plan: Blood cultures have been positive for gram-positive cocci in clusters. Continue IV antibiotics. Plan is to place a temporary trialysis catheter until blood cultures became negative. At that time a new PermCath can then be placed. Considering the patient has been very noncompliant, I think we should treat the infection here as adequately as possible since he would need IV antibiotics. He will be best served if he finishes the antibiotics here since he does not always show up on dialysis as an outpatient to receive any IV antibiotics to be given that way. Plan to repeat blood cultures on Friday. If blood cultures are negative then plan is to put the PermCath early next week by Dr. Soler. (4) Anemia in chronic kidney disease (CKD) Is this a current diagnosis for this admission?: Yes Plan: We will give Procrit on dialysis. (5) Hypertension Is this a current diagnosis for this admission?: Yes Plan: Continue blood pressure medications but hold them in a.m. before dialysis treatment. (6) Undernutrition Is this a current diagnosis for this admission?: Yes Plan: We will try Megace to increase his appetite. - Time Time with patient: 15-25 minutes
[2017-08-20] MEDS ORDERED: CEFEPIME 2 GM/D5W RTU 2 GM/50 ML RTUPB IV SCH ×2 (22:00)
[2017-08-20] MEDS: MIRTAZAPINE 15 MG TABLET PO SCH (22:36)
[2017-08-20] MEDS: ISOSORBIDE MONONITRATE 30 MG TAB.ER.24H PO SCH (22:36)
[2017-08-21 05:11] LABS: ANION GAP 7 (5-19); BLOOD UREA NITROGEN 14 mg/dL (7-20); CALCIUM 7.4 mg/dL (8.4-10.2); CARBON DIOXIDE 31 mmol/L (22-30); CHLORIDE 100 mmol/L (98-107); GLUCOSE 100 mg/dL (75-110); PHOSPHORUS 2.1 mg/dL (2.5-4.5); POTASSIUM 3.7 mmol/L (3.6-5.0); SODIUM 137.7 mmol/L (137-145)
[2017-08-21 05:14] LABS: MEAN CORPUSCULAR HEMOGLOBIN 29.5 pg (27.0-33.4); MEAN CORPUSCULAR HGB CONC 33.4 g/dL (32.0-36.0); MEAN CORPUSCULAR VOLUME 88 fl (80-97); PLATELET COUNT 104 10^3/uL (150-450); RED BLOOD COUNT 2.72 10^6/uL (4.35-5.55); RED CELL DISTRIBUTION WIDTH 17.2 % (11.5-14.0)
[2017-08-21] MEDS: HEPARIN SOD (PORCINE) 5,000 UNIT/ML 1 ML SYRINGE SUBCUT SCH ×2 (05:21→17:17)
[2017-08-21] MEDS: METOPROLOL SUCCINATE 25 MG TAB.SR.24H PO SCH ×2 (05:23→17:14)
[2017-08-21] MEDS: CLONIDINE HCL 0.2 MG TABLET PO SCH ×2 (05:23→17:15)
[2017-08-21] MEDS: LEVOTHYROXINE SODIUM 0.025 MG TABLET PO SCH (05:23)
[2017-08-21] MEDS: LANSOPRAZOLE 30 MG TAB.RAP.DR PO SCH (05:24)
[2017-08-21 05:41] LABS: ABSOLUTE LYMPHOCYTES# (MANUAL) 1.5 10^3/uL (0.5-4.7); ABSOLUTE MONOCYTES # (MANUAL) 0.5 10^3/uL (0.1-1.4); ABSOLUTE NEUTROPHILS# (MANUAL) 3.8 10^3/uL (1.7-8.2); BASOPHILS % (MANUAL) 2 % (0-2); EOSINOPHILS % (MANUAL) 0 % (0-6); LYMPHOCYTES % (MANUAL) 25 % (13-45); MONOCYTES % (MANUAL) 9 % (3-13); SEGMENTED NEUTROPHILS % (MAN) 64 % (42-78); TOTAL CELLS COUNTED 100
[2017-08-21 05:43] LABS: ANISOCYTOSIS 1+; OVALOCYTES SLIGHT; PLATELET COMMENT DECREASED; POIKILOCYTOSIS SLIGHT
[2017-08-21] MEDS ORDERED: HEPARIN SODIUM,PORCINE/NS/PF 0 UNIT/0 ML RTUINJ IV ONE (06:34)
[2017-08-21] MEDS ORDERED: LIDOCAINE 0.5% INJ-PF (5 MG/ML) 50 ML SDV ONE (06:34)
[2017-08-21] MEDS ORDERED: BUPIVACAINE HCL 0.25 % INJ/PF (2.5 MG/1 ML) 30 ML VIAL ONE (06:34)
[2017-08-21] MEDS ORDERED: BACITRACIN INJ 50,000 UNIT VIAL ONE (06:34)
[2017-08-21] MEDS ORDERED: MIDAZOLAM 2 MG/2 ML INJ ONE (06:44)
[2017-08-21] MEDS ORDERED: FENTANYL CITRATE INJ/PF 100 MCG/2 ML AMPUL ONE (06:44)
[2017-08-21] MEDS ORDERED: PROPOFOL INJ 200 MG/20 ML VIAL IV ONE (06:45)
[2017-08-21 08:21] LABS: HEMATOCRIT 24.2 % (37.9-51.0); MEAN CORPUSCULAR HEMOGLOBIN 29.2 pg (27.0-33.4); MEAN CORPUSCULAR HGB CONC 32.9 g/dL (32.0-36.0); MEAN CORPUSCULAR VOLUME 89 fl (80-97); PLATELET COUNT 111 10^3/uL (150-450); RED BLOOD COUNT 2.72 10^6/uL (4.35-5.55); WHITE BLOOD COUNT 6.6 10^3/uL (4.0-10.5)
[2017-08-21 08:40] LABS: BLOOD UREA NITROGEN 15 mg/dL (7-20); CALCIUM 7.5 mg/dL (8.4-10.2); CARBON DIOXIDE 31 mmol/L (22-30); CHLORIDE 100 mmol/L (98-107); GLUCOSE 100 mg/dL (75-110); POTASSIUM 3.8 mmol/L (3.6-5.0); SODIUM 138.4 mmol/L (137-145)
[2017-08-21 08:41] LABS: ANION GAP 7 (5-19)
[2017-08-21 09:18] LABS: ABSOLUTE LYMPHOCYTES# (MANUAL) 0.8 10^3/uL (0.5-4.7); ABSOLUTE MONOCYTES # (MANUAL) 0.5 10^3/uL (0.1-1.4); ABSOLUTE NEUTROPHILS# (MANUAL) 5.3 10^3/uL (1.7-8.2); BASOPHILS % (MANUAL) 0 % (0-2); EOSINOPHILS % (MANUAL) 0 % (0-6); LYMPHOCYTES % (MANUAL) 12 % (13-45); MONOCYTES % (MANUAL) 7 % (3-13); SEGMENTED NEUTROPHILS % (MAN) 81 % (42-78); TOTAL CELLS COUNTED 100
[2017-08-21 09:19] LABS: ANISOCYTOSIS 1+; PLATELET COMMENT DECREASED; TARGET CELLS 1+
[2017-08-21] MEDS: ACETAMINOPHEN 325 MG TABLET PO PRN (09:56)
[2017-08-21] MEDS: LACTOBACILLUS ACIDOPHILUS 250 MG TAB PO SCH ×2 (09:57→17:15)
[2017-08-21] MEDS: DOCUSATE SODIUM 100 MG CAPSULE PO SCH (09:57)
[2017-08-21] MEDS: MAGNESIUM OXIDE 400 MG TABLET PO SCH (09:57)
[2017-08-21] MEDS: FOLIC ACID/VITAMIN B COMP W-C CAPSULE PO SCH (09:57)
[2017-08-21] MEDS: MEGESTROL ACETATE SUSP 400 MG/10 ML UDCUP PO SCH (09:58)
[2017-08-21] MEDS: CALCIUM CARBONATE 250 MG/VITAMIN D3 125 UNIT TABLET PO SCH (09:58)
[2017-08-21] MEDS ORDERED: POLYETHYLENE GLYCOL 3350 POWDER 17 GM/1 PACKET PO PRN (10:54)
[2017-08-21] MEDS ORDERED: BISACODYL 10 MG SUPP.RECT PR ONE (11:30)
--- NOTE | 2017-08-21 12:44 | PDOC PROGRESS REPORT ---
Subjective Progress Note for:: 08/21/17 Subjective:: No complaints Reason For Visit: HYPERKALEMIA,INFECTED HD ACCESS Physical Exam Vital Signs: Temp Pulse Resp BP Pulse Ox 97.6 F 67 16 136/55 H 98 08/21/17 11:36 08/21/17 11:36 08/21/17 11:36 08/21/17 11:36 08/21/17 12:24 Intake & Output 08/20/17 08/21/17 08/22/17 05:59 05:59 05:59 Intake Total 1002 725 0 Output Total 1300 0 Balance 1002 -575 0 Weight 119 lb 0.794 oz 119 lb 4.321 oz General appearance: PRESENT: no acute distress, other - Cachectic Respiratory exam: PRESENT: clear to auscultation nan Cardiovascular exam: PRESENT: RRR GI/Abdominal exam: PRESENT: soft Extremities exam: PRESENT: other - He has old pressure ulcers on his toes and heels bilaterally with eschar. No fluctuance or drainage Musculoskeletal exam: PRESENT: normal inspection Neurological exam: PRESENT: awake, oriented to person Psychiatric exam: PRESENT: flat affect Skin exam: PRESENT: warm Results Laboratory Results: 08/21/17 07:56 08/21/17 07:56 08/21/17 08/21/17 08/21/17 04:45 04:45 07:56 WBC 6.0 6.6 RBC 2.72 L 2.72 L Hgb 8.0 L 8.0 L Hct 24.0 L 24.2 L MCV 88 89 MCH 29.5 29.2 MCHC 33.4 32.9 RDW 17.2 H 17.0 H Plt Count 104 L 111 L Seg Neutrophils % Not Reportable Not Reportable Lymphocytes % Not Reportable Not Reportable Monocytes % Not Reportable Not Reportable Eosinophils % Not Reportable Not Reportable Basophils % Not Reportable Not Reportable Absolute Neutrophils Not Reportable Not Reportable Absolute Lymphocytes Not Reportable Not Reportable Absolute Monocytes Not Reportable Not Reportable Absolute Eosinophils Not Reportable Not Reportable Absolute Basophils Not Reportable Not Reportable Sodium 137.7 Potassium 3.7 Chloride 100 Carbon Dioxide 31 H Anion Gap 7 BUN 14 Creatinine 2.38 H Est GFR ( Amer) 33 L Est GFR (Non-Af Amer) 27 L Glucose 100 Calcium 7.4 L Phosphorus 2.1 L Magnesium 1.7 08/21/17 07:56 WBC RBC Hgb Hct MCV MCH MCHC RDW Plt Count Seg Neutrophils % Lymphocytes % Monocytes % Eosinophils % Basophils % Absolute Neutrophils Absolute Lymphocytes Absolute Monocytes Absolute Eosinophils Absolute Basophils Sodium 138.4 Potassium 3.8 Chloride 100 Carbon Dioxide 31 H Anion Gap 7 BUN 15 Creatinine 2.96 H Est GFR ( Amer) 26 L Est GFR (Non-Af Amer) 21 L Glucose 100 Calcium 7.5 L Phosphorus 2.0 L Magnesium 1.8 08/18/17 18:00 Blood Blood Culture - Final Mrsa (Meth Resis Staph Aureus) 08/18/17 22:00 Chest - Right Side Gram Stain - Final 08/18/17 22:00 Chest - Right Side Wound Culture - Final Mrsa (Meth Resis Staph Aureus) Impressions: Extremity Ultrasound 08/18/17 00:00 IMPRESSION: 1. Arm edema without abscess suggested. Chest X-Ray 08/18/17 13:21 IMPRESSION: Few Pennie lines with trace left pleural fluid. PermCath tip in the right atrium. Assessment & Plan - Diagnosis (1) MRSA (methicillin resistant Staphylococcus aureus) septicemia Is this a current diagnosis for this admission?: Yes Plan: Continue vancomycin. (2) Encephalopathy Is this a current diagnosis for this admission?: Yes Plan: Unclear chronicity. Continue to monitor with improvement in his infection. He is from a [facility]. (3) ESRD on hemodialysis Is this a current diagnosis for this admission?: Yes Plan: New dialysis catheter after blood cultures are negative. (4) Protein-calorie malnutrition, moderate Is this a current diagnosis for this admission?: Yes (5) Pressure ulcer Qualifiers: Pressure ulcer location: foot, unspecified location Pressure ulcer stage: unstageable Laterality: unspecified laterality Qualified Code(s): L89.890 - Pressure ulcer of other site, unstageable Is this a current diagnosis for this admission?: Yes Plan: Bilateral great toes, and heels. Details per nursing assessment. Padded foot boots
[2017-08-21] MEDS ORDERED: TUBERCULIN,PURIF.PROT.DERIV. 5 TU/0.1 ML TEST 1 ML VIAL ID ONE (14:00)
[2017-08-21] MEDS: AMLODIPINE BESYLATE 10 MG TABLET PO SCH (17:14)
[2017-08-21] MEDS: MIRTAZAPINE 15 MG TABLET PO SCH (22:00)
[2017-08-21] MEDS: BISACODYL 10 MG SUPP.RECT PR SCH (22:00)
[2017-08-22 04:45] LABS: ABSOLUTE EOSINOPHILS # (AUTO) 0.1 10^3/uL (0.0-0.6); ABSOLUTE MONOCYTES (AUTO) 0.6 10^3/uL (0.1-1.4); ABSOLUTE NEUT (AUTO) 3.2 10^3/uL (1.7-8.2); BASOPHILS % (AUTO) 0.7 % (0-2); EOSINOPHILS % (AUTO) 1.7 % (0-6); LYMPHOCYTES % (AUTO) 33.3 % (13-45); MEAN CORPUSCULAR HEMOGLOBIN 29.7 pg (27.0-33.4); MEAN CORPUSCULAR HGB CONC 33.2 g/dL (32.0-36.0); MEAN CORPUSCULAR VOLUME 89 fl (80-97); RED BLOOD COUNT 2.69 10^6/uL (4.35-5.55); RED CELL DISTRIBUTION WIDTH 17.3 % (11.5-14.0); SEGMENTED NEUTROPHILS % (AUTO) 54.3 % (42-78); TOTAL CELLS COUNTED % (AUTO) 100 %
[2017-08-22 04:57] LABS: ALBUMIN 1.9 g/dL (3.5-5.0); ANION GAP 7 (5-19); BLOOD UREA NITROGEN 19 mg/dL (7-20); CALCIUM 7.2 mg/dL (8.4-10.2); CARBON DIOXIDE 28 mmol/L (22-30); CHLORIDE 103 mmol/L (98-107); GLUCOSE 87 mg/dL (75-110); IRON 46.7 ug/dL (49-181); PHOSPHORUS 1.6 mg/dL (2.5-4.5); POTASSIUM 3.8 mmol/L (3.6-5.0); SODIUM 138.1 mmol/L (137-145)
[2017-08-22] MEDS: ISOSORBIDE MONONITRATE 30 MG TAB.ER.24H PO SCH ×2 (04:57→21:21)
[2017-08-22 05:00] LABS: CREATINE KINASE < 20 U/L (55-170)
[2017-08-22] MEDS ORDERED: NORMAL SALINE 1000 ML 1,000 ML IV PRN (05:00)
[2017-08-22] MEDS ORDERED: EPOETIN ALFA INJ 20000 UNIT/1 ML VIAL (RENAL) IV PRN (05:00)
[2017-08-22] MEDS ORDERED: HEPARIN SOD (PORCINE) 1,000 UNIT/ML 10 ML VIAL IV PRN ×2 (05:00→10:30)
[2017-08-22 05:02] LABS: PLATELET COUNT 95 10^3/uL (150-450)
[2017-08-22] MEDS: HEPARIN SOD (PORCINE) 5,000 UNIT/ML 1 ML SYRINGE SUBCUT SCH ×2 (05:12→18:01)
[2017-08-22] MEDS: LANSOPRAZOLE 30 MG TAB.RAP.DR PO SCH (05:37)
[2017-08-22] MEDS: LEVOTHYROXINE SODIUM 0.025 MG TABLET PO SCH (05:38)
[2017-08-22] MEDS: CLONIDINE HCL 0.2 MG TABLET PO SCH ×2 (08:38→17:41)
[2017-08-22] MEDS: METOPROLOL SUCCINATE 25 MG TAB.SR.24H PO SCH ×2 (08:38→17:42)
[2017-08-22] MEDS ORDERED: EPOETIN ALFA 30,000 UNIT in SYRINGE, DISPOSABLE, 1 EACH IV ONE (11:30)
[2017-08-22] MEDS: DOCUSATE SODIUM 100 MG CAPSULE PO SCH (11:39)
[2017-08-22] MEDS: FOLIC ACID/VITAMIN B COMP W-C CAPSULE PO SCH (11:39)
[2017-08-22] MEDS: LACTOBACILLUS ACIDOPHILUS 250 MG TAB PO SCH ×2 (11:39→17:41)
[2017-08-22] MEDS: CALCIUM CARBONATE 250 MG/VITAMIN D3 125 UNIT TABLET PO SCH (11:40)
[2017-08-22] MEDS: MAGNESIUM OXIDE 400 MG TABLET PO SCH (11:40)
[2017-08-22] MEDS: MEGESTROL ACETATE SUSP 400 MG/10 ML UDCUP PO SCH (11:45)
[2017-08-22] MEDS: BISACODYL 10 MG SUPP.RECT PR SCH ×2 (11:45→21:22)
--- NOTE | 2017-08-22 14:34 | PDOC PROGRESS REPORT ---
Subjective Progress Note for:: 08/22/17 Subjective:: I saw the patient on dialysis this morning at around 8:20 AM. He said he is sleepy. He did not really voice out any new complaints. Her dialysis nurse, Rupa told me that he is somewhat a little confused earlier. Otherwise he was tolerating dialysis without any problems or complaints. Reason For Visit: HYPERKALEMIA,INFECTED HD ACCESS, ESRD Physical Exam Vital Signs: Temp Pulse Resp BP Pulse Ox 98.1 F 60 14 148/53 H 100 08/22/17 12:40 08/22/17 14:00 08/22/17 12:40 08/22/17 12:40 08/22/17 12:40 Intake & Output 08/21/17 08/22/17 08/23/17 06:59 06:59 06:59 Intake Total 725 1111 Output Total 1300 0 Balance -575 1111 Weight 54.1 kg Vitals during dialysis treatment: Blood pressure 115/62, heart rate of 62, blood flow rate of 350 mL/min, dialysate flow rate of 600 mL/min. Exam: General appearance: PRESENT: no acute distress, cooperative, thin and emaciated Head exam: PRESENT: atraumatic, normocephalic Eye exam: PRESENT: conjunctiva pale, PERRLA. ABSENT: scleral icterus Neck exam: ABSENT: JVD Respiratory exam: PRESENT: Diminished breath sounds. ABSENT: crackles, rales, rhonchi, unlabored, wheezes Cardiovascular exam: PRESENT: Regular rate rhythm -+S1, +S2. ABSENT: diastolic murmur, systolic murmur GI/Abdominal exam: PRESENT: normal bowel sounds, soft. ABSENT: guarding, mass, tenderness Extremities exam: ABSENT: No edema Neurological exam: PRESENT: Somnolent. Skin exam: PRESENT: dry, warm, Results Laboratory Results: 08/22/17 04:10 08/22/17 04:10 08/22/17 08/22/17 04:10 04:10 WBC 6.0 RBC 2.69 L Hgb 8.0 L Hct 24.0 L MCV 89 MCH 29.7 MCHC 33.2 RDW 17.3 H Plt Count 95 L Seg Neutrophils % 54.3 Lymphocytes % 33.3 Monocytes % 10.0 Eosinophils % 1.7 Basophils % 0.7 Absolute Neutrophils 3.2 Absolute Lymphocytes 2.0 Absolute Monocytes 0.6 Absolute Eosinophils 0.1 Absolute Basophils 0.0 Sodium 138.1 Potassium 3.8 Chloride 103 Carbon Dioxide 28 Anion Gap 7 BUN 19 Creatinine 3.03 H Est GFR ( Amer) 25 L Est GFR (Non-Af Amer) 21 L Glucose 87 Calcium 7.2 L Phosphorus 1.6 L Magnesium 1.8 Iron 46.7 L Albumin 1.9 L 08/18/17 17:40 Blood Blood Culture - Final Mrsa (Meth Resis Staph Aureus) 08/18/17 18:00 Blood Blood Culture - Final Mrsa (Meth Resis Staph Aureus) 08/18/17 22:00 Chest - Right Side Gram Stain - Final 08/18/17 22:00 Chest - Right Side Wound Culture - Final Mrsa (Meth Resis Staph Aureus) 08/22/17 04:10 Creatine Kinase < 20 L Impressions: Extremity Ultrasound 08/18/17 00:00 IMPRESSION: 1. Arm edema without abscess suggested. Chest X-Ray 08/18/17 13:21 IMPRESSION: Few Pennie lines with trace left pleural fluid. PermCath tip in the right atrium. Assessment & Plan - Diagnosis (1) ESRD on hemodialysis Is this a current diagnosis for this admission?: Yes Plan: We did dialysis today for 3 hours, using the patient's trialysis catheter, with 3 potassium bath, blood flow rate of 350 mL per minute, dialysate flow rate of 600 mL per minute, ultrafiltration 1 L as tolerated, no heparin and Procrit with 30,000 units during dialysis intravenously. Next dialysis will be on Friday. (2) Hyperkalemia Is this a current diagnosis for this admission?: Yes Plan: Resolved after dialysis. (3) Vascular catheter infection Qualifiers: Encounter type: initial encounter Qualified Code(s): T82.7XXA - Infection and inflammatory reaction due to other cardiac and vascular devices, implants and grafts, initial encounter Is this a current diagnosis for this admission?: Yes Plan: Blood cultures have been positive for MRSA. Continue IV antibiotics currently with daptomycin. Plan is to place a temporary trialysis catheter until blood cultures became negative. At that time a new PermCath can then be placed. Considering the patient has been very noncompliant, I think we should treat the infection here as adequately as possible since he would need IV antibiotics. He will be best served if he finishes the antibiotics here since he does not always show up on dialysis as an outpatient to receive any IV antibiotics to be given that way. Plan to repeat blood cultures on Friday. Repeat blood cultures from yesterday are negative. It remains to be negative then we can plan for PermCath placement care of Dr. Soler. (4) Anemia in chronic kidney disease (CKD) Is this a current diagnosis for this admission?: Yes Plan: We will give Procrit on dialysis. (5) Hypertension Is this a current diagnosis for this admission?: Yes Plan: Continue blood pressure medications but hold them in a.m. before dialysis treatment. (6) Undernutrition Is this a current diagnosis for this admission?: Yes Plan: We will try Megace to increase his appetite. - Time Time with patient: 15-25 minutes
--- NOTE | 2017-08-22 14:45 | PDOC PROGRESS REPORT ---
Subjective Progress Note for:: 08/22/17 Subjective:: No complaints. Somnolent Reason For Visit: HYPERKALEMIA,INFECTED HD ACCESS Physical Exam Vital Signs: Temp Pulse Resp BP Pulse Ox 98.1 F 60 14 148/53 H 100 08/22/17 12:40 08/22/17 14:00 08/22/17 12:40 08/22/17 12:40 08/22/17 12:40 Intake & Output 08/21/17 08/22/17 08/23/17 05:59 05:59 05:59 Intake Total 725 911 200 Output Total 1300 0 0 Balance -575 911 200 Weight 119 lb 0.794 oz 119 lb 4.321 oz General appearance: PRESENT: no acute distress, other - Cachectic Respiratory exam: PRESENT: clear to auscultation nan Cardiovascular exam: PRESENT: RRR GI/Abdominal exam: PRESENT: soft Extremities exam: PRESENT: other - Fistula in his left upper arm with thrill Neurological exam: PRESENT: other - Somnolent but arousable Psychiatric exam: PRESENT: flat affect, other - Clouded sensorium appears to be baseline Skin exam: PRESENT: warm Results Laboratory Results: 08/22/17 04:10 08/22/17 04:10 08/22/17 08/22/17 04:10 04:10 WBC 6.0 RBC 2.69 L Hgb 8.0 L Hct 24.0 L MCV 89 MCH 29.7 MCHC 33.2 RDW 17.3 H Plt Count 95 L Seg Neutrophils % 54.3 Lymphocytes % 33.3 Monocytes % 10.0 Eosinophils % 1.7 Basophils % 0.7 Absolute Neutrophils 3.2 Absolute Lymphocytes 2.0 Absolute Monocytes 0.6 Absolute Eosinophils 0.1 Absolute Basophils 0.0 Sodium 138.1 Potassium 3.8 Chloride 103 Carbon Dioxide 28 Anion Gap 7 BUN 19 Creatinine 3.03 H Est GFR ( Amer) 25 L Est GFR (Non-Af Amer) 21 L Glucose 87 Calcium 7.2 L Phosphorus 1.6 L Magnesium 1.8 Iron 46.7 L Albumin 1.9 L 08/18/17 17:40 Blood Blood Culture - Final Mrsa (Meth Resis Staph Aureus) 08/18/17 18:00 Blood Blood Culture - Final Mrsa (Meth Resis Staph Aureus) 08/22/17 04:10 Creatine Kinase < 20 L Impressions: Extremity Ultrasound 08/18/17 00:00 IMPRESSION: 1. Arm edema without abscess suggested. Chest X-Ray 08/18/17 13:21 IMPRESSION: Few Pennie lines with trace left pleural fluid. PermCath tip in the right atrium. Assessment & Plan - Diagnosis (1) MRSA (methicillin resistant Staphylococcus aureus) septicemia Is this a current diagnosis for this admission?: Yes Plan: Changed to daptomycin on ID recommendations. Continue. Repeat blood cultures are pending (2) Encephalopathy Is this a current diagnosis for this admission?: Yes Plan: Unclear chronicity. Continue to monitor with improvement in his infection. I have not seen any significant change since he got here. He is from a longterm. (3) ESRD on hemodialysis Is this a current diagnosis for this admission?: Yes Plan: Making do with an inguinal try dialysis catheter while we treat his infection. This is not a device that can go out of the hospital, and thus necessitates his continued inpatient treatment. New dialysis catheter after blood cultures are negative. (4) Protein-calorie malnutrition, moderate Is this a current diagnosis for this admission?: Yes (5) Pressure ulcer Qualifiers: Pressure ulcer location: foot, unspecified location Pressure ulcer stage: unstageable Laterality: unspecified laterality Qualified Code(s): L89.890 - Pressure ulcer of other site, unstageable Is this a current diagnosis for this admission?: Yes Plan: Bilateral great toes, and heels. Details per nursing assessment. Padded foot boots
[2017-08-22] MEDS: AMLODIPINE BESYLATE 10 MG TABLET PO SCH (17:41)
[2017-08-22] MEDS: DAPTOMYCIN 300 MG in NORMAL SALINE 50 ML IV SCH (17:45)
[2017-08-22] MEDS: MIRTAZAPINE 15 MG TABLET PO SCH (21:21)
[2017-08-23] MEDS: HEPARIN SOD (PORCINE) 5,000 UNIT/ML 1 ML SYRINGE SUBCUT SCH ×2 (05:04→17:20)
[2017-08-23] MEDS: METOPROLOL SUCCINATE 25 MG TAB.SR.24H PO SCH ×2 (05:04→17:19)
[2017-08-23] MEDS: CLONIDINE HCL 0.2 MG TABLET PO SCH (05:36)
[2017-08-23] MEDS: LEVOTHYROXINE SODIUM 0.025 MG TABLET PO SCH (05:40)
[2017-08-23] MEDS: LANSOPRAZOLE 30 MG TAB.RAP.DR PO SCH (05:40)
[2017-08-23] MEDS: CALCIUM CARBONATE 250 MG/VITAMIN D3 125 UNIT TABLET PO SCH (10:12)
[2017-08-23] MEDS: MAGNESIUM OXIDE 400 MG TABLET PO SCH (10:12)
[2017-08-23] MEDS: DOCUSATE SODIUM 100 MG CAPSULE PO SCH (10:12)
[2017-08-23] MEDS: LACTOBACILLUS ACIDOPHILUS 250 MG TAB PO SCH ×2 (10:12→17:20)
[2017-08-23] MEDS: BISACODYL 10 MG SUPP.RECT PR SCH ×2 (10:13→21:13)
[2017-08-23] MEDS: MEGESTROL ACETATE SUSP 400 MG/10 ML UDCUP PO SCH (10:13)
[2017-08-23] MEDS: FOLIC ACID/VITAMIN B COMP W-C CAPSULE PO SCH (10:13)
[2017-08-23] MEDS ORDERED: MAG HYDROX/AL HYDROX/SIMETH SUSP 30 ML UDCUP PO PRN (12:01)
--- NOTE | 2017-08-23 12:45 | PDOC PROGRESS REPORT ---
Subjective Progress Note for:: 08/23/17 Subjective:: Once I was able to get him awake he asked for something more to help him relax. Reason For Visit: HYPERKALEMIA,INFECTED HD ACCESS Physical Exam Vital Signs: Temp Pulse Resp BP Pulse Ox 98.8 F 66 16 143/48 H 99 08/23/17 07:34 08/23/17 07:34 08/23/17 07:34 08/23/17 07:34 08/23/17 07:34 Intake & Output 08/22/17 08/23/17 08/24/17 05:59 05:59 05:59 Intake Total 911 260 705 Output Total 0 1000 0 Balance 911 -740 705 Weight 119 lb 4.321 oz 119 lb 4.321 oz General appearance: PRESENT: no acute distress, other - Cachectic Respiratory exam: PRESENT: clear to auscultation nan Cardiovascular exam: PRESENT: RRR GI/Abdominal exam: PRESENT: soft Gentrourinary exam: PRESENT: other - Dialysis catheter in place in the right inguinal region Neurological exam: PRESENT: other - Arousable but somnolent Skin exam: PRESENT: warm Results Laboratory Results: 08/22/17 04:10 08/22/17 04:10 08/18/17 17:40 Blood Blood Culture - Final Mrsa (Meth Resis Staph Aureus) 08/18/17 18:00 Blood Blood Culture - Final Mrsa (Meth Resis Staph Aureus) 08/22/17 04:10 Creatine Kinase < 20 L Impressions: Extremity Ultrasound 08/18/17 00:00 IMPRESSION: 1. Arm edema without abscess suggested. Chest X-Ray 08/18/17 13:21 IMPRESSION: Few Pennie lines with trace left pleural fluid. PermCath tip in the right atrium. Assessment & Plan - Diagnosis (1) MRSA (methicillin resistant Staphylococcus aureus) septicemia Is this a current diagnosis for this admission?: Yes Plan: Continue daptomycin per ID recommendations. Repeat blood cultures negative through 24 hours (2) Encephalopathy Is this a current diagnosis for this admission?: Yes Plan: Unclear chronicity. Continue to monitor with improvement in his infection. I have not seen any significant change since he got here. He is from a correction, has chronic pressure sores on his toes and heels, and is markedly cachectic. It would appear that he lives a bedbound existence. (3) ESRD on hemodialysis Is this a current diagnosis for this admission?: Yes Plan: Making do with an inguinal trialysis catheter while we treat his infection. This is not a device that can go out of the hospital, and thus necessitates his continued inpatient treatment. New PermCath after blood cultures are negative. (4) Protein-calorie malnutrition, moderate Is this a current diagnosis for this admission?: Yes (5) Pressure ulcer Qualifiers: Pressure ulcer location: foot, unspecified location Pressure ulcer stage: unstageable Laterality: unspecified laterality Qualified Code(s): L89.890 - Pressure ulcer of other site, unstageable Is this a current diagnosis for this admission?: Yes Plan: Bilateral great toes, and heels. No evidence of infection. Details per nursing assessment. Padded foot boots
[2017-08-23] MEDS ORDERED: CLONIDINE HCL 0.2 MG TABLET PO SCH (12:48)
[2017-08-23] MEDS: CLONIDINE HCL 0.1 MG TABLET PO SCH (17:19)
[2017-08-23] MEDS: ISOSORBIDE MONONITRATE 30 MG TAB.ER.24H PO SCH (21:16)
[2017-08-23] MEDS: MIRTAZAPINE 15 MG TABLET PO SCH (21:16)
[2017-08-24] MEDS: HEPARIN SOD (PORCINE) 5,000 UNIT/ML 1 ML SYRINGE SUBCUT SCH ×2 (05:19→18:11)
[2017-08-24] MEDS: CLONIDINE HCL 0.1 MG TABLET PO SCH ×2 (05:25→18:12)
[2017-08-24] MEDS: LANSOPRAZOLE 30 MG TAB.RAP.DR PO SCH (05:25)
[2017-08-24] MEDS: LEVOTHYROXINE SODIUM 0.025 MG TABLET PO SCH (05:25)
[2017-08-24] MEDS: METOPROLOL SUCCINATE 25 MG TAB.SR.24H PO SCH ×2 (05:25→18:11)
[2017-08-24 07:10] LABS: ANION GAP 9 (5-19); BLOOD UREA NITROGEN 17 mg/dL (7-20); CALCIUM 7.5 mg/dL (8.4-10.2); CARBON DIOXIDE 29 mmol/L (22-30); CHLORIDE 100 mmol/L (98-107); GLUCOSE 84 mg/dL (75-110); POTASSIUM 3.7 mmol/L (3.6-5.0); SODIUM 138.2 mmol/L (137-145)
[2017-08-24] MEDS: OXYCODONE HCL IR 5 MG TABLET PO PRN ×2 (07:37→23:41)
[2017-08-24] MEDS: BISACODYL 10 MG SUPP.RECT PR SCH ×2 (09:31→21:48)
[2017-08-24] MEDS: CALCIUM CARBONATE 250 MG/VITAMIN D3 125 UNIT TABLET PO SCH (09:37)
[2017-08-24] MEDS: DOCUSATE SODIUM 100 MG CAPSULE PO SCH (09:37)
[2017-08-24] MEDS: FOLIC ACID/VITAMIN B COMP W-C CAPSULE PO SCH (09:37)
[2017-08-24] MEDS: LACTOBACILLUS ACIDOPHILUS 250 MG TAB PO SCH ×2 (09:37→18:12)
[2017-08-24] MEDS: MAGNESIUM OXIDE 400 MG TABLET PO SCH (09:37)
[2017-08-24] MEDS: MEGESTROL ACETATE SUSP 400 MG/10 ML UDCUP PO SCH (09:38)
--- NOTE | 2017-08-24 12:38 | PDOC PROGRESS REPORT ---
Subjective Progress Note for:: 08/24/17 Subjective:: No complaints. More arousable today. Reason For Visit: HYPERKALEMIA,INFECTED HD ACCESS Physical Exam Vital Signs: Temp Pulse Resp BP Pulse Ox 98.1 F 63 15 129/60 H 100 08/24/17 11:40 08/24/17 11:40 08/24/17 11:40 08/24/17 11:40 08/24/17 11:40 Intake & Output 08/23/17 08/24/17 08/25/17 05:59 05:59 05:59 Intake Total 260 1023 210 Output Total 1000 0 0 Balance -740 1023 210 Weight 121 lb 14.65 oz General appearance: PRESENT: no acute distress, other - Cachectic, chronically ill-appearing Respiratory exam: PRESENT: clear to auscultation nan Cardiovascular exam: PRESENT: RRR GI/Abdominal exam: PRESENT: soft Extremities exam: PRESENT: other - Chronic pressure ulcers on his large toes and heels bilaterally covered with eschar. No evidence of current infection Musculoskeletal exam: PRESENT: normal inspection Neurological exam: PRESENT: awake Psychiatric exam: PRESENT: flat affect Skin exam: PRESENT: warm Results Laboratory Results: 08/22/17 04:10 08/24/17 06:12 08/24/17 06:12 Sodium 138.2 Potassium 3.7 Chloride 100 Carbon Dioxide 29 Anion Gap 9 BUN 17 Creatinine 2.91 H Est GFR ( Amer) 26 L Est GFR (Non-Af Amer) 22 L Glucose 84 Calcium 7.5 L Magnesium 1.9 08/22/17 04:10 Creatine Kinase < 20 L Impressions: Extremity Ultrasound 08/18/17 00:00 IMPRESSION: 1. Arm edema without abscess suggested. Chest X-Ray 08/18/17 13:21 IMPRESSION: Few Pennie lines with trace left pleural fluid. PermCath tip in the right atrium. Assessment & Plan - Diagnosis (1) MRSA (methicillin resistant Staphylococcus aureus) septicemia Is this a current diagnosis for this admission?: Yes Plan: Continue daptomycin per ID recommendations. Repeat blood cultures negative through 24 hours (2) Encephalopathy Is this a current diagnosis for this admission?: Yes Plan: Unclear chronicity. Continue to monitor with improvement in his infection. I have not seen any significant change since he got here. He is from a snf, has chronic pressure sores on his toes and heels, and is markedly cachectic. It would appear that he lives a bedbound existence. (3) ESRD on hemodialysis Is this a current diagnosis for this admission?: Yes Plan: Making do with an inguinal trialysis catheter while we treat his infection. This is not a device that can go out of the hospital, and thus necessitates his continued inpatient treatment. New PermCath after blood cultures are negative. (4) Protein-calorie malnutrition, moderate Is this a current diagnosis for this admission?: Yes (5) Pressure ulcer Qualifiers: Pressure ulcer location: foot, unspecified location Pressure ulcer stage: unstageable Laterality: unspecified laterality Qualified Code(s): L89.890 - Pressure ulcer of other site, unstageable Is this a current diagnosis for this admission?: Yes Plan: Bilateral great toes, and heels. No evidence of infection. Details per nursing assessment. Padded foot boots
[2017-08-24] MEDS: FERROUS SULFATE 325 MG TABLET PO SCH (18:11)
[2017-08-24] MEDS: ASCORBIC ACID 500 MG TABLET PO SCH (18:11)
[2017-08-24] MEDS: DAPTOMYCIN 300 MG in NORMAL SALINE 50 ML IV SCH (18:12)
[2017-08-24] MEDS: MIRTAZAPINE 15 MG TABLET PO SCH (22:24)
[2017-08-24] MEDS: ISOSORBIDE MONONITRATE 30 MG TAB.ER.24H PO SCH (22:24)
[2017-08-25] MEDS ORDERED: EPOETIN ALFA 30,000 UNIT in SYRINGE, DISPOSABLE, 1 EACH IV PRN (00:11)
[2017-08-25] MEDS ORDERED: NORMAL SALINE 1000 ML 1,000 ML IV PRN (00:11)
[2017-08-25] MEDS: ACETAMINOPHEN 325 MG TABLET PO PRN (03:54)
[2017-08-25] MEDS: METOPROLOL SUCCINATE 25 MG TAB.SR.24H PO SCH ×2 (05:02→17:21)
[2017-08-25] MEDS: CLONIDINE HCL 0.1 MG TABLET PO SCH ×2 (05:02→17:21)
[2017-08-25] MEDS: HEPARIN SOD (PORCINE) 5,000 UNIT/ML 1 ML SYRINGE SUBCUT SCH ×2 (05:02→17:22)
[2017-08-25] MEDS: LANSOPRAZOLE 30 MG TAB.RAP.DR PO SCH (05:05)
[2017-08-25] MEDS: LEVOTHYROXINE SODIUM 0.025 MG TABLET PO SCH (05:05)
[2017-08-25 06:33] LABS: ABSOLUTE BASOPHILS # (AUTO) 0.1 10^3/uL (0.0-0.2); ABSOLUTE EOSINOPHILS # (AUTO) 0.2 10^3/uL (0.0-0.6); ABSOLUTE LYMPHOCYTES (AUTO) 2.8 10^3/uL (0.5-4.7); ABSOLUTE MONOCYTES (AUTO) 0.9 10^3/uL (0.1-1.4); ABSOLUTE NEUT (AUTO) 3.9 10^3/uL (1.7-8.2); BASOPHILS % (AUTO) 1.4 % (0-2); EOSINOPHILS % (AUTO) 3.1 % (0-6); HEMATOCRIT 28.3 % (37.9-51.0); HEMOGLOBIN 9.5 g/dL (13.5-17.0); LYMPHOCYTES % (AUTO) 35.2 % (13-45); MEAN CORPUSCULAR HEMOGLOBIN 29.5 pg (27.0-33.4); MEAN CORPUSCULAR HGB CONC 33.5 g/dL (32.0-36.0); MEAN CORPUSCULAR VOLUME 88 fl (80-97); MONOCYTES % (AUTO) 11.4 % (3-13); PLATELET COUNT 130 10^3/uL (150-450); RED BLOOD COUNT 3.22 10^6/uL (4.35-5.55); SEGMENTED NEUTROPHILS % (AUTO) 48.9 % (42-78); TOTAL CELLS COUNTED % (AUTO) 100 %; WHITE BLOOD COUNT 8.1 10^3/uL (4.0-10.5)
[2017-08-25 06:59] LABS: ANION GAP 9 (5-19); BLOOD UREA NITROGEN 20 mg/dL (7-20); CALCIUM 7.8 mg/dL (8.4-10.2); CARBON DIOXIDE 28 mmol/L (22-30); CHLORIDE 100 mmol/L (98-107); GLUCOSE 98 mg/dL (75-110); POTASSIUM 3.8 mmol/L (3.6-5.0); SODIUM 137.1 mmol/L (137-145)
[2017-08-25] MEDS: OXYCODONE HCL IR 5 MG TABLET PO PRN ×3 (09:32→21:34)
--- NOTE | 2017-08-25 10:07 | PDOC PROGRESS REPORT ---
Subjective Progress Note for:: 08/25/17 Subjective:: I am seeing the patient in dialysis today. Patient complains of back pain. He also complains of feeling cold as usual during dialysis treatment. Otherwise he seems to be a little bit more awake. He is otherwise hemodynamically stable and is currently tolerating dialysis well. After about 10 minutes of being on the machine patient is already indicating that he wants to get off but we are trying to encourage him to stay on dialysis treatment. We are going to do everything possible so that he stays with his whole treatment today. Reason For Visit: HYPERKALEMIA,INFECTED HD ACCESS, ESRD Physical Exam Vital Signs: Temp Pulse Resp BP Pulse Ox 98.2 F 65 16 135/57 H 97 08/25/17 07:29 08/25/17 07:29 08/25/17 07:29 08/25/17 07:29 08/25/17 07:29 Intake & Output 08/24/17 08/25/17 08/26/17 06:59 06:59 06:59 Intake Total 528 310 Output Total 0 0 Balance 528 310 Weight 55.3 kg 53.4 kg Vitals during dialysis: Blood pressure 138/77, heart rate of 78, blood flow rate 350 mL/min, dialysate flow rate 600 mL/min. Exam: General appearance: PRESENT: no acute distress, thin and emaciated looking Head exam: PRESENT: atraumatic, normocephalic Eye exam: PRESENT: conjunctiva pale, PERRLA. ABSENT: scleral icterus Neck exam: ABSENT: JVD Respiratory exam: PRESENT: Normal breath sounds. ABSENT: crackles, rales, rhonchi, unlabored, wheezes Cardiovascular exam: PRESENT: Regular rate rhythm -+S1, +S2. ABSENT: diastolic murmur, systolic murmur GI/Abdominal exam: PRESENT: normal bowel sounds, soft. ABSENT: guarding, mass, tenderness Extremities exam: ABSENT: No edema Neurological exam: PRESENT: alert, awake, oriented to person, place and time. Skin exam: PRESENT: dry, warm, Results Laboratory Results: 08/25/17 06:13 08/25/17 06:13 08/25/17 08/25/17 06:13 06:13 WBC 8.1 RBC 3.22 L Hgb 9.5 L Hct 28.3 L MCV 88 MCH 29.5 MCHC 33.5 RDW 17.0 H Plt Count 130 L Seg Neutrophils % 48.9 Lymphocytes % 35.2 Monocytes % 11.4 Eosinophils % 3.1 Basophils % 1.4 Absolute Neutrophils 3.9 Absolute Lymphocytes 2.8 Absolute Monocytes 0.9 Absolute Eosinophils 0.2 Absolute Basophils 0.1 Sodium 137.1 Potassium 3.8 Chloride 100 Carbon Dioxide 28 Anion Gap 9 BUN 20 Creatinine 3.45 H Est GFR ( Amer) 21 L Est GFR (Non-Af Amer) 18 L Glucose 98 Calcium 7.8 L 08/22/17 04:10 Creatine Kinase < 20 L Impressions: Extremity Ultrasound 08/18/17 00:00 IMPRESSION: 1. Arm edema without abscess suggested. Chest X-Ray 08/18/17 13:21 IMPRESSION: Few Pennie lines with trace left pleural fluid. PermCath tip in the right atrium. Assessment & Plan - Diagnosis (1) ESRD on hemodialysis Is this a current diagnosis for this admission?: Yes Plan: We will do dialysis today for 3 hours, using the patient's right femoral trialysis catheter, with 3 potassium bath, blood flow rate of 350 mL per minute , dialysate flow rate of 600 mL per minute, ultrafiltration 1 L as tolerated, no heparin and Procrit with 20,000 units during dialysis intravenously. Patient will be monitored throughout dialysis treatment and will be encouraged to stay on his home treatment time. (2) Vascular catheter infection Qualifiers: Encounter type: initial encounter Qualified Code(s): T82.7XXA - Infection and inflammatory reaction due to other cardiac and vascular devices, implants and grafts, initial encounter Is this a current diagnosis for this admission?: Yes Plan: Blood cultures have been positive for MRSA. Continue IV antibiotics currently with daptomycin. Currently still being dialyzed using his temporary trialysis catheter. Blood cultures has been negative more than 72 hours. Patient can have a new PermCath placed by Dr. Soler who is aware of his condition. Hopefully we can have a new PermCath placed tomorrow. Considering the patient has been very noncompliant, I think we should treat the infection here as adequately as possible since he would need IV antibiotics. He will be best served if he finishes the antibiotics here since he does not always show up on dialysis as an outpatient to receive any IV antibiotics to be given that way. (3) Anemia in chronic kidney disease (CKD) Is this a current diagnosis for this admission?: Yes Plan: We will give Procrit on dialysis. (4) Hypertension Is this a current diagnosis for this admission?: Yes Plan: Continue blood pressure medications but hold them in a.m. before dialysis treatment. (5) Undernutrition Is this a current diagnosis for this admission?: Yes Plan: We will try Megace to increase his appetite. - Time Time with patient: 15-25 minutes
[2017-08-25] MEDS ORDERED: EPOETIN ALFA INJ 20000 UNIT/1 ML VIAL (RENAL) IV PRN (10:28)
[2017-08-25] MEDS ORDERED: HEPARIN SOD (PORCINE) 1,000 UNIT/ML 10 ML VIAL IV PRN (10:29)
[2017-08-25] MEDS: LACTOBACILLUS ACIDOPHILUS 250 MG TAB PO SCH ×2 (13:55→17:21)
[2017-08-25] MEDS: CALCIUM CARBONATE 250 MG/VITAMIN D3 125 UNIT TABLET PO SCH (13:56)
[2017-08-25] MEDS: DOCUSATE SODIUM 100 MG CAPSULE PO SCH (13:56)
[2017-08-25] MEDS: ASCORBIC ACID 500 MG TABLET PO SCH ×2 (13:57→17:21)
[2017-08-25] MEDS: FERROUS SULFATE 325 MG TABLET PO SCH ×2 (13:57→17:21)
[2017-08-25] MEDS: FOLIC ACID/VITAMIN B COMP W-C CAPSULE PO SCH (13:57)
[2017-08-25] MEDS: MEGESTROL ACETATE SUSP 400 MG/10 ML UDCUP PO SCH (13:58)
[2017-08-25] MEDS: MAGNESIUM OXIDE 400 MG TABLET PO SCH (13:58)
[2017-08-25] MEDS: BISACODYL 10 MG SUPP.RECT PR SCH ×2 (13:59→21:39)
--- NOTE | 2017-08-25 15:37 | PDOC PROGRESS REPORT ---
Subjective Progress Note for:: 08/25/17 Subjective:: Seen after dialysis. Bundled in blankets. "Not worth a damn", but no specific complaints. Reason For Visit: HYPERKALEMIA,INFECTED HD ACCESS Physical Exam Vital Signs: Temp Pulse Resp BP Pulse Ox 98.2 F 66 16 135/57 H 97 08/25/17 07:29 08/25/17 13:44 08/25/17 07:29 08/25/17 07:29 08/25/17 07:29 Intake & Output 08/24/17 08/25/17 08/26/17 05:59 05:59 05:59 Intake Total 1023 270 250 Output Total 0 0 0 Balance 1023 270 250 Weight 121 lb 14.65 oz 117 lb 11.629 oz General appearance: PRESENT: no acute distress, other - Cachectic Respiratory exam: PRESENT: clear to auscultation nan Cardiovascular exam: PRESENT: RRR GI/Abdominal exam: PRESENT: soft Musculoskeletal exam: PRESENT: other - Chronic healing heel and great toe ulcers on both feet Neurological exam: PRESENT: awake Psychiatric exam: PRESENT: flat affect Skin exam: PRESENT: warm Results Laboratory Results: 08/25/17 06:13 08/25/17 06:13 08/25/17 08/25/17 06:13 06:13 WBC 8.1 RBC 3.22 L Hgb 9.5 L Hct 28.3 L MCV 88 MCH 29.5 MCHC 33.5 RDW 17.0 H Plt Count 130 L Seg Neutrophils % 48.9 Lymphocytes % 35.2 Monocytes % 11.4 Eosinophils % 3.1 Basophils % 1.4 Absolute Neutrophils 3.9 Absolute Lymphocytes 2.8 Absolute Monocytes 0.9 Absolute Eosinophils 0.2 Absolute Basophils 0.1 Sodium 137.1 Potassium 3.8 Chloride 100 Carbon Dioxide 28 Anion Gap 9 BUN 20 Creatinine 3.45 H Est GFR ( Amer) 21 L Est GFR (Non-Af Amer) 18 L Glucose 98 Calcium 7.8 L 08/22/17 04:10 Creatine Kinase < 20 L Impressions: Extremity Ultrasound 08/18/17 00:00 IMPRESSION: 1. Arm edema without abscess suggested. Chest X-Ray 08/18/17 13:21 IMPRESSION: Few Pennie lines with trace left pleural fluid. PermCath tip in the right atrium. Assessment & Plan - Diagnosis (1) MRSA (methicillin resistant Staphylococcus aureus) septicemia Is this a current diagnosis for this admission?: Yes Plan: Continue daptomycin per ID recommendations. Repeat blood cultures negative through 72 hours (2) Encephalopathy Is this a current diagnosis for this admission?: Yes Plan: Unclear chronicity. Waxes and wanes consistent with dementia. He is from a half-way, has chronic pressure sores on his toes and heels, and is markedly cachectic. It would appear that he lives a bedbound existence. (3) ESRD on hemodialysis Is this a current diagnosis for this admission?: Yes Plan: Making do with an inguinal trialysis catheter while we treat his infection. This is not a device that can go out of the hospital, and thus necessitates his continued inpatient treatment. New PermCath after blood cultures are negative. Timing per vascular surgery. (4) Protein-calorie malnutrition, moderate Is this a current diagnosis for this admission?: Yes (5) Pressure ulcer Qualifiers: Pressure ulcer location: foot, unspecified location Pressure ulcer stage: unstageable Laterality: unspecified laterality Qualified Code(s): L89.890 - Pressure ulcer of other site, unstageable Is this a current diagnosis for this admission?: Yes Plan: Bilateral great toes, and heels consistent with long-term bedbound existence. No evidence of infection. Details per nursing assessment. Padded foot boots
[2017-08-25] MEDS: ISOSORBIDE MONONITRATE 30 MG TAB.ER.24H PO SCH (21:34)
[2017-08-25] MEDS: MIRTAZAPINE 15 MG TABLET PO SCH (21:35)
[2017-08-26] MEDS: CLONIDINE HCL 0.1 MG TABLET PO SCH ×2 (05:42→17:04)
[2017-08-26] MEDS: HEPARIN SOD (PORCINE) 5,000 UNIT/ML 1 ML SYRINGE SUBCUT SCH ×2 (05:42→17:05)
[2017-08-26] MEDS: LEVOTHYROXINE SODIUM 0.025 MG TABLET PO SCH (05:42)
[2017-08-26] MEDS: METOPROLOL SUCCINATE 25 MG TAB.SR.24H PO SCH ×2 (05:42→17:04)
[2017-08-26] MEDS: LANSOPRAZOLE 30 MG TAB.RAP.DR PO SCH (05:42)
[2017-08-26] MEDS: FOLIC ACID/VITAMIN B COMP W-C CAPSULE PO SCH (09:11)
[2017-08-26] MEDS: MEGESTROL ACETATE SUSP 400 MG/10 ML UDCUP PO SCH (09:11)
[2017-08-26] MEDS: ASCORBIC ACID 500 MG TABLET PO SCH ×2 (09:11→17:04)
[2017-08-26] MEDS: MAGNESIUM OXIDE 400 MG TABLET PO SCH (09:11)
[2017-08-26] MEDS: DOCUSATE SODIUM 100 MG CAPSULE PO SCH (09:11)
[2017-08-26] MEDS: FERROUS SULFATE 325 MG TABLET PO SCH ×2 (09:11→17:03)
[2017-08-26] MEDS: LACTOBACILLUS ACIDOPHILUS 250 MG TAB PO SCH ×2 (09:11→17:03)
[2017-08-26] MEDS: CALCIUM CARBONATE 250 MG/VITAMIN D3 125 UNIT TABLET PO SCH (09:11)
[2017-08-26] MEDS: BISACODYL 10 MG SUPP.RECT PR SCH ×2 (09:13→22:12)
[2017-08-26] MEDS ORDERED: FENTANYL CITRATE INJ/PF 100 MCG/2 ML AMPUL ONE (12:53)
[2017-08-26] MEDS ORDERED: HEPARIN SODIUM,PORCINE/NS/PF 0 UNIT/0 ML RTUINJ IV ONE (12:53)
[2017-08-26] MEDS ORDERED: BACITRACIN INJ 50,000 UNIT VIAL ONE (12:53)
[2017-08-26] MEDS ORDERED: MIDAZOLAM 2 MG/2 ML INJ ONE (12:53)
[2017-08-26] MEDS ORDERED: LIDOCAINE 0.5% INJ-PF (5 MG/ML) 50 ML SDV ONE (13:00)
[2017-08-26] MEDS ORDERED: CEFAZOLIN INJ 1 GM VIAL ONE (13:45)
--- NOTE | 2017-08-26 14:34 | Operative Report ---
Operative Report DATE OF SURGERY: 08/18/17 PREOPERATIVE DIAGNOSIS: End-stage renal disease on hemodialysis POSTOPERATIVE DIAGNOSIS: End-stage renal disease on hemodialysis. OPERATION: Removal of right IJ permacatheter SURGEON: MARIAELENA CAAL SUBWAY OPERATOR: None. ANESTHESIA: Moderate Sedation TISSUE REMOVED OR ALTERED: Not applicable. COMPLICATIONS: None. ESTIMATED BLOOD LOSS: 5 mL. INTRAOPERATIVE FINDINGS: Of a satisfactory left internal jugular vein to support permacatheter. Easy egress of blood and ingress of heparinized solution. Tendency to bleed from the entrance site in the neck suggestive of possible pulmonary hypertension. Satisfactory flow of contrast through the catheter, right atrium and pulmonary outflow tract. The catheter was done in the right atrium, almost to the inferior vena cava. The right atrium somewhat on the small side. PROCEDURE: After obtaining informed consent, the patient was taken to the [operating room] and positioned supine. The [right] neck and chest were prepared with chlorhexidine and draped out with sterile linen. After the " universal timeout ", in which it was verified that the patient continued to receive antibiotic, the procedure commenced. A steriley sheathed ultrasound probe was used to evaluate the [right] internal jugular vein. Local anesthesia was infiltrated adjacent to the probe. Access into the [right] internal jugular vein was obtained using a micropuncture needle, followed by micropuncture wire and then a micropuncture catheter. This was followed by introduction of a 0.035 guidewire the tip of which was placed down into the inferior vena cava . The port sites was marked , locally anesthetized and incision made. Dissection now proceeded to the deep subcutaneous subcutaneous tissues so that a pocket for the port was made. Meticulous hemostasis was secured and the catheter was tunneled between the 2 incisions. Proximally, the catheter was now positioned using a peel-away sheath. Distally the catheter was tailored to an appropriate length and then mated to the port using the contained fixating device. The port was now placed in the pocket and the catheter optimally positioned. The port was accessed with a Chavez needle and an angiogram done under digital subtraction. The findings as dictated. With adequate and satisfactory positioning, both lumens of the chamber were irrigated with heparinized solution. The wounds were now closed using interrupted 3-0 PDS to the subcutaneous tissues and a continuous subcuticular suture of 4-0 Monocryl to the skin. These are reinforced with Steri-Strips over benzoin and then dressings applied. Time: 0.3 minute. Dose: 4.39 m Gy Contrast: 5 mls. Isovue 300. Copies of the dictated operative report for Dr. Mariaelena Soler MD.
--- NOTE | 2017-08-26 15:08 | PDOC PROGRESS REPORT ---
Subjective Progress Note for:: 08/26/17 Subjective:: "Pretty fair" Reason For Visit: HYPERKALEMIA,INFECTED HD ACCESS Physical Exam Vital Signs: Temp Pulse Resp BP Pulse Ox 98.3 F 80 18 153/56 H 100 08/26/17 13:10 08/26/17 13:10 08/26/17 13:10 08/26/17 13:10 08/26/17 13:10 Intake & Output 08/25/17 08/26/17 08/27/17 05:59 05:59 05:59 Intake Total 270 250 20 Output Total 0 900 0 Balance 270 -650 20 Weight 117 lb 11.629 oz 116 lb 13.52 oz General appearance: PRESENT: no acute distress, other - Cachectic Respiratory exam: PRESENT: clear to auscultation nan Cardiovascular exam: PRESENT: RRR GI/Abdominal exam: PRESENT: soft Extremities exam: PRESENT: other - No edema Neurological exam: PRESENT: awake, oriented to person, oriented to place, CN II- XII grossly intact. ABSENT: motor sensory deficit Psychiatric exam: PRESENT: appropriate affect Skin exam: PRESENT: warm Results Laboratory Results: 08/25/17 06:13 08/25/17 06:13 08/21/17 13:35 Blood Blood Culture - Final NO GROWTH IN 5 DAYS 08/21/17 13:50 Blood Blood Culture - Final NO GROWTH IN 5 DAYS 08/22/17 04:10 Creatine Kinase < 20 L Impressions: Extremity Ultrasound 08/18/17 00:00 IMPRESSION: 1. Arm edema without abscess suggested. Chest X-Ray 08/18/17 13:21 IMPRESSION: Few Pennie lines with trace left pleural fluid. PermCath tip in the right atrium. Assessment & Plan - Diagnosis (1) MRSA (methicillin resistant Staphylococcus aureus) septicemia Is this a current diagnosis for this admission?: Yes Plan: Continue daptomycin 24 hours past his PermCath. Repeat blood cultures negative through 72 hours (2) Encephalopathy Is this a current diagnosis for this admission?: Yes Plan: Unclear chronicity. Waxes and wanes consistent with dementia. He is from a custodial, has chronic pressure sores on his toes and heels, and is markedly cachectic. It would appear that he lives a bedbound existence. (3) ESRD on hemodialysis Is this a current diagnosis for this admission?: Yes Plan: My understanding is that vascular surgery is planning to place a new PermCath today. (4) Protein-calorie malnutrition, moderate Is this a current diagnosis for this admission?: Yes (5) Pressure ulcer Qualifiers: Pressure ulcer location: foot, unspecified location Pressure ulcer stage: unstageable Laterality: unspecified laterality Qualified Code(s): L89.890 - Pressure ulcer of other site, unstageable Is this a current diagnosis for this admission?: Yes Plan: Bilateral great toes, and heels consistent with long-term bedbound existence. No evidence of infection. Details per nursing assessment. Padded foot boots
--- NOTE | 2017-08-26 15:20 | OPERATIVE REPORT E ---
Operative Report NAME: DANIEL MAGUIRE : 1950 AGE: 67Y DATE OF SURGERY: 08/20/2017 ROOM: 320 PREOPERATIVE DIAGNOSES: 1. END-STAGE RENAL DISEASE ON HEMODIALYSIS. 2. SEPSIS. 3. MULTIPLE COMORBIDITIES. POSTOPERATIVE DIAGNOSES: 1. END-STAGE RENAL DISEASE ON HEMODIALYSIS. 2. SEPSIS. 3. MULTIPLE COMORBIDITIES. OPERATIONS: 1. Ultrasound evaluation of the right femoral vein. 2. Insertion of temporary hemodialysis catheter via real-time access in the right common femoral vein. SURGEON: MARIAELENA BRADEN M.D. PLANNING DIVISION SUPERINTENDENT: None. ANESTHESIA: Local. TISSUE REMOVED OR ALTERED: Not applicable. COMPLICATIONS: None. ESTIMATED BLOOD LOSS: 5 mL. OPERATIVE FINDINGS: Satisfactory right femoral vein to support temporary hemodialysis catheter insertion. Satisfactory and safe access. Satisfactory placement of a 20-cm temporary hemodialysis catheter. Easy egress of blood and ingress of heparinized solution through all 3 ports. PROCEDURE: After obtaining informed consent, the procedure was done at bedside. The right femoral area was prepared with Betadine and chlorhexidine and draped out with sterile linen. A sterile sheath ultrasound probe was used to evaluate the right femoral vein. Local anesthesia infiltrated. Access gained using a micropuncture needle, catheter and wire. This was followed by introduction of a 0.035 guidewire. Sequentially larger dilators were now used, and then finally, the temporary hemodialysis catheter. The catheter was anchored to the skin using 3-0 PDS. The procedure concluded by application of dressings, including a Biopatch. DICTATING PHYSICIAN: MARIAELENA BRADEN M.D. [id number] PHY#: [id number] ID: [id number] JOB#: [id number] ACCT: [id number] cc:MARIAELENA BRADEN M.D. >
[2017-08-26] MEDS: DAPTOMYCIN 300 MG in NORMAL SALINE 50 ML IV SCH (17:02)
--- NOTE | 2017-08-26 17:02 | RADIOLOGY REPORT (SQ) ---
EXAM DESCRIPTION: TUNNELED CENTRAL LINE; GUIDANCE FLUOROSCOPIC COMPLETED DATE/TIME: 08/26/2017 2:50 pm REASON FOR STUDY: T82.858A COMPARISON: None. FLUOROSCOPY TIME: 0.3 Minutes 7 series of digital images saved to PACS. TECHNIQUE: Intra-operative images acquired during surgical procedure to evaluate progress. NUMBER OF IMAGES: 7 series of digital images saved to pac's LIMITATIONS: None. FINDINGS: Intra procedural imaging and fluoro during placement of a left-sided central venous cathet er with the tip in the right atrium. Please see the operative report for further details IMPRESSION: Intra procedural imaging and fluoro COMMENT: Quality ID [id number]: Final reports for procedures using fluoroscopy that document radiation exp osure indices, or exposure time and number of fluorographic images (if radiation exposure indices are not available) Please consult full operative report of the attending physician for description of the procedure. TECHNICAL DOCUMENTATION: JOB ID: [id number] [employer]- All Rights Reserved Reading location - IP/workstation name: [email or web address]
--- NOTE | 2017-08-26 17:02 | RADIOLOGY REPORT (SQ) ---
EXAM DESCRIPTION: TUNNELED CENTRAL LINE; GUIDANCE FLUOROSCOPIC COMPLETED DATE/TIME: 08/26/2017 2:50 pm REASON FOR STUDY: T82.858A COMPARISON: None. FLUOROSCOPY TIME: 0.3 Minutes 7 series of digital images saved to PACS. TECHNIQUE: Intra-operative images acquired during surgical procedure to evaluate progress. NUMBER OF IMAGES: 7 series of digital images saved to pac's LIMITATIONS: None. FINDINGS: Intra procedural imaging and fluoro during placement of a left-sided central venous cathet er with the tip in the right atrium. Please see the operative report for further details IMPRESSION: Intra procedural imaging and fluoro COMMENT: Quality ID 145: Final reports for procedures using fluoroscopy that document radiation exp osure indices, or exposure time and number of fluorographic images (if radiation exposure indices are not available) Please consult full operative report of the attending physician for description of the procedure. TECHNICAL DOCUMENTATION: JOB ID: [id number] [employer]- All Rights Reserved Reading location - IP/workstation name: [email or web address]
[2017-08-26] MEDS: ACETAMINOPHEN 325 MG TABLET PO PRN (17:03)
[2017-08-26] MEDS: OXYCODONE HCL IR 5 MG TABLET PO PRN (22:11)
[2017-08-26] MEDS: ISOSORBIDE MONONITRATE 30 MG TAB.ER.24H PO SCH (22:11)
[2017-08-26] MEDS: MIRTAZAPINE 15 MG TABLET PO SCH (22:11)
[2017-08-27] MEDS: ACETAMINOPHEN 325 MG TABLET PO PRN (02:54)
[2017-08-27] MEDS ORDERED: EPOETIN ALFA INJ 20000 UNIT/1 ML VIAL (RENAL) IV PRN (05:00)
[2017-08-27] MEDS ORDERED: NORMAL SALINE 1000 ML 1,000 ML IV PRN (05:00)
[2017-08-27 05:25] LABS: ABSOLUTE BASOPHILS # (AUTO) 0.1 10^3/uL (0.0-0.2); ABSOLUTE EOSINOPHILS # (AUTO) 0.2 10^3/uL (0.0-0.6); ABSOLUTE LYMPHOCYTES (AUTO) 2.3 10^3/uL (0.5-4.7); ABSOLUTE MONOCYTES (AUTO) 1.2 10^3/uL (0.1-1.4); ABSOLUTE NEUT (AUTO) 5.4 10^3/uL (1.7-8.2); BASOPHILS % (AUTO) 0.7 % (0-2); EOSINOPHILS % (AUTO) 1.7 % (0-6); HEMATOCRIT 25.6 % (37.9-51.0); HEMOGLOBIN 8.6 g/dL (13.5-17.0); LYMPHOCYTES % (AUTO) 24.7 % (13-45); MEAN CORPUSCULAR HEMOGLOBIN 29.9 pg (27.0-33.4); MEAN CORPUSCULAR HGB CONC 33.6 g/dL (32.0-36.0); MEAN CORPUSCULAR VOLUME 89 fl (80-97); MONOCYTES % (AUTO) 13.6 % (3-13); PLATELET COUNT 187 10^3/uL (150-450); RED BLOOD COUNT 2.87 10^6/uL (4.35-5.55); RED CELL DISTRIBUTION WIDTH 16.9 % (11.5-14.0); SEGMENTED NEUTROPHILS % (AUTO) 59.3 % (42-78); TOTAL CELLS COUNTED % (AUTO) 100 %; WHITE BLOOD COUNT 9.1 10^3/uL (4.0-10.5)
[2017-08-27] MEDS: LEVOTHYROXINE SODIUM 0.025 MG TABLET PO SCH (05:41)
[2017-08-27] MEDS: LANSOPRAZOLE 30 MG TAB.RAP.DR PO SCH (05:42)
[2017-08-27] MEDS: CLONIDINE HCL 0.1 MG TABLET PO SCH ×2 (05:46→17:15)
[2017-08-27] MEDS: METOPROLOL SUCCINATE 25 MG TAB.SR.24H PO SCH ×2 (05:46→21:57)
[2017-08-27 05:47] LABS: ANION GAP 11 (5-19); BLOOD UREA NITROGEN 16 mg/dL (7-20); CALCIUM 7.6 mg/dL (8.4-10.2); CARBON DIOXIDE 28 mmol/L (22-30); CHLORIDE 101 mmol/L (98-107); GLUCOSE 108 mg/dL (75-110); POTASSIUM 3.8 mmol/L (3.6-5.0)
[2017-08-27] MEDS: HEPARIN SOD (PORCINE) 5,000 UNIT/ML 1 ML SYRINGE SUBCUT SCH ×2 (05:47→17:16)
[2017-08-27] MEDS ORDERED: HEPARIN SOD (PORCINE) 1,000 UNIT/ML 10 ML VIAL IV SCH ×2 (09:00→09:30)
[2017-08-27] MEDS: MAGNESIUM OXIDE 400 MG TABLET PO SCH (10:29)
[2017-08-27] MEDS: CALCIUM CARBONATE 250 MG/VITAMIN D3 125 UNIT TABLET PO SCH (10:29)
[2017-08-27] MEDS: FOLIC ACID/VITAMIN B COMP W-C CAPSULE PO SCH (10:29)
[2017-08-27] MEDS: EPOETIN ALFA INJ 20000 UNIT/1 ML VIAL (RENAL) IV PRN ×2 (10:29→12:09)
[2017-08-27] MEDS: FERROUS SULFATE 325 MG TABLET PO SCH ×2 (10:30→17:15)
[2017-08-27] MEDS: ASCORBIC ACID 500 MG TABLET PO SCH ×2 (10:31→17:15)
[2017-08-27] MEDS: OXYCODONE HCL IR 5 MG TABLET PO PRN (10:31)
[2017-08-27] MEDS: LACTOBACILLUS ACIDOPHILUS 250 MG TAB PO SCH ×2 (10:32→17:15)
[2017-08-27] MEDS: DOCUSATE SODIUM 100 MG CAPSULE PO SCH (10:33)
[2017-08-27] MEDS: MEGESTROL ACETATE SUSP 400 MG/10 ML UDCUP PO SCH (10:33)
[2017-08-27] MEDS: HEPARIN SOD (PORCINE) 1,000 UNIT/ML 10 ML VIAL IV PRN ×2 (10:35→12:09)
[2017-08-27] MEDS: ONDANSETRON 4 MG TAB.RAPDIS PO PRN (11:30)
[2017-08-27] MEDS: ONDANSETRON HCL INJ/PF 4 MG/2 ML SDV IV PRN (12:08)
[2017-08-27] MEDS ORDERED: PROMETHAZINE HCL INJ 25 MG/1 ML VIAL IV ONE (14:00)
--- NOTE | 2017-08-27 14:06 | RADIOLOGY REPORT (SQ) ---
EXAM DESCRIPTION: KUB/ABDOMEN (SINGLE VIEW) COMPLETED DATE/TIME: 08/27/2017 1:37 pm REASON FOR STUDY: vomiting, abdominal pain COMPARISON: September 2016 NUMBER OF VIEWS: One view. TECHNIQUE: Supine radiographic image of the abdomen acquired. LIMITATIONS: None. FINDINGS: BOWEL GAS PATTERN: There is mild gaseous distention of multiple bowel loops most consisten t with an ileus pattern. CALCIFICATIONS: Calcific densities are identified in the mid abdomen which may be pancreatic in natur e. SOFT TISSUES: No gross mass or suggestion of organomegaly. HARDWARE: Venous catheter is identified overlying right pelvis. BONES: No acute fracture. No worrisome bone lesions. OTHER: Vascular calcifications are identified in the abdominal aorta and iliac vessels and I cannot e xclude an aneurysm of the right common iliac artery. IMPRESSION: Nonspecific ileus intestinal bowel gas pattern. Other findings as noted above TECHNICAL DOCUMENTATION: JOB ID: [id number] [employer]- All Rights Reserved Reading location - IP/workstation name: [email or web address]
[2017-08-27] MEDS ORDERED: METOPROLOL SUCCINATE 25 MG TAB.SR.24H PO ONE (15:00)
--- NOTE | 2017-08-27 16:10 | PDOC PROGRESS REPORT ---
Subjective Progress Note for:: 08/27/17 Subjective:: Initially refused dialysis, but was talked into it by his daughter, and then got dialysis short. Developed nausea and vomiting when he got back to the room that was not relieved with Zofran. Resolved with Phenergan, but left him very sleepy. Reason For Visit: HYPERKALEMIA,INFECTED HD ACCESS Physical Exam Vital Signs: Temp Pulse Resp BP Pulse Ox 97.8 F 96 18 156/78 H 97 08/27/17 12:37 08/27/17 14:00 08/27/17 12:37 08/27/17 12:37 08/27/17 12:37 Intake & Output 08/26/17 08/27/17 08/28/17 05:59 05:59 05:59 Intake Total 250 327 0 Output Total 900 0 100 Balance -650 327 -100 Weight 116 lb 13.52 oz 117 lb 11.629 oz General appearance: PRESENT: no acute distress, other - Cachectic, chronically ill-appearing Respiratory exam: PRESENT: clear to auscultation nan Cardiovascular exam: PRESENT: RRR GI/Abdominal exam: PRESENT: soft Extremities exam: PRESENT: other - No edema Musculoskeletal exam: PRESENT: normal inspection Neurological exam: PRESENT: altered Psychiatric exam: PRESENT: flat affect Skin exam: PRESENT: warm Results Laboratory Results: 08/27/17 04:54 08/27/17 04:54 08/27/17 08/27/17 04:54 04:54 WBC 9.1 RBC 2.87 L Hgb 8.6 L Hct 25.6 L MCV 89 MCH 29.9 MCHC 33.6 RDW 16.9 H Plt Count 187 Seg Neutrophils % 59.3 Lymphocytes % 24.7 Monocytes % 13.6 H Eosinophils % 1.7 Basophils % 0.7 Absolute Neutrophils 5.4 Absolute Lymphocytes 2.3 Absolute Monocytes 1.2 Absolute Eosinophils 0.2 Absolute Basophils 0.1 Sodium 140.0 Potassium 3.8 Chloride 101 Carbon Dioxide 28 Anion Gap 11 BUN 16 Creatinine 3.16 H Est GFR ( Amer) 24 L Est GFR (Non-Af Amer) 20 L Glucose 108 Calcium 7.6 L 08/21/17 13:35 Blood Blood Culture - Final NO GROWTH IN 5 DAYS 08/21/17 13:50 Blood Blood Culture - Final NO GROWTH IN 5 DAYS 08/22/17 04:10 Creatine Kinase < 20 L Impressions: Extremity Ultrasound 08/18/17 00:00 IMPRESSION: 1. Arm edema without abscess suggested. Chest X-Ray 08/18/17 13:21 IMPRESSION: Few Pennie lines with trace left pleural fluid. PermCath tip in the right atrium. Central Venous Line 08/26/17 00:00 IMPRESSION: Intra procedural imaging and fluoro Guidance Fluoroscopy 08/26/17 00:00 IMPRESSION: Intra procedural imaging and fluoro KUB X-Ray 08/27/17 00:00 IMPRESSION: Nonspecific ileus intestinal bowel gas pattern. Other findings as noted above Assessment & Plan - Diagnosis (1) MRSA (methicillin resistant Staphylococcus aureus) septicemia Is this a current diagnosis for this admission?: Yes Plan: DC antibiotics. Repeat blood cultures negative through 5 days (2) Encephalopathy Is this a current diagnosis for this admission?: Yes Plan: Unclear chronicity. Waxes and wanes consistent with dementia. He is [place], has chronic pressure sores on his toes and heels, and is markedly cachectic. It would appear that he lives a bedbound existence. (3) ESRD on hemodialysis Is this a current diagnosis for this admission?: Yes Plan: My understanding is that vascular surgery is planning to place a new PermCath today. (4) Protein-calorie malnutrition, moderate Is this a current diagnosis for this admission?: Yes Plan: Palliative care consult (5) Pressure ulcer Qualifiers: Pressure ulcer location: foot, unspecified location Pressure ulcer stage: unstageable Laterality: unspecified laterality Qualified Code(s): L89.890 - Pressure ulcer of other site, unstageable Is this a current diagnosis for this admission?: Yes
[2017-08-27] MEDS: BISACODYL 10 MG SUPP.RECT PR SCH ×2 (17:17→22:07)
--- NOTE | 2017-08-27 17:25 | Progress Note ---
Provider Note Provider Note: ID Consult Note Asked to review patient's chart by Pharmacy. Pt not seen or examined. Reviewed provider reports, labs, imaging reports, VS. Mr. Franz is a 67 year old care home resident with PMH including ESRD on HD. He was admitted with hyperkalemia after refusing dialysis for nearly 3 weeks and sepsis due to MRSA bacteremia secondary to a grossly infected R IJ permcath. Positive BCx were obtained on 08/18 with growth of MRSA with ERNESTO of 2 to vancomycin from both blood cultures drawn from the line and peripherally. He was initially treated with IV vancomycin and removal of permcath. He had rapid resolution of fever. Repeat BCx were drawn on 08/21, and vancomycin was subsequently discontinued in favor of IV daptomycin, given the elevated ERNESTO to vancomycin. Those repeat BCx from 08/21 have remained negative. Impression/Recommendations MRSA bacteremia secondary to infected permcath - s/p removal of permcath for source control and with clearance of bacteremia demonstrated on 08/21 and rapid resolution of fever achieved while on vancomycin - The best management of MRSA bacteremia in the setting of an elevated ERNESTO to vancomycin is not clear cut. Generally the decision of whether to continue vancomycin or treat with daptomycin depends upon clinical response. The patient defervesced and cleared the bacteremia while still on vancomycin, which provides evidence to support vancomycin as a viable alternative to daptomycin to complete treatment if cost or availability of daptomycin is a prohibitive factor. - Pursuing a 2D transthoracic echocardiogram (TTE) is recommended for all patients with Staph aureus bacteremia, given the risk for development of infective endocarditis with this organism. - Duration of therapy is contingent upon whether the patient has evidence to suggest infective endocarditis. - Recommend completing 4 weeks of therapy with either vancomycin or daptomycin ( last dose on 09/17 if MWF dialysis or 09/18 if TTH) if there is no vegetation demonstrated on TTE. If vegetation is present, then treatment duration should be extended to 6 weeks. George Mitchell MD [facility] Infectious Diseases pager [phone]
[2017-08-27] MEDS ORDERED: METOPROLOL TARTRATE PF/INJ 5 MG/5 ML SDV IV PRN (17:37)
--- NOTE | 2017-08-27 17:47 | PDOC PROGRESS REPORT ---
Subjective Progress Note for:: 08/27/17 Subjective:: I saw the patient during dialysis treatment at around 8:25 AM. Patient initially refused to go for dialysis treatment this morning but after talking to the daughter he agreed to go for dialysis. Patient was very somnolent when I saw him and did not voice out any complaints. He continues to feel cold this always during dialysis treatment. He underwent a new PermCath placement in his left IJ yesterday by Dr. Soler. The left IJ PermCath was used for dialysis this morning. Reason For Visit: ESRD, INFECTED HD ACCESS Physical Exam Vital Signs: Temp Pulse Resp BP Pulse Ox 97.8 F 96 18 156/78 H 97 08/27/17 12:37 08/27/17 14:00 08/27/17 12:37 08/27/17 12:37 08/27/17 12:37 Intake & Output 08/26/17 08/27/17 08/28/17 06:59 06:59 06:59 Intake Total 20 307 0 Output Total 900 0 100 Balance -880 307 -100 Weight 53 kg 53.4 kg Vitals during dialysis treatment: Blood pressure 154/74, heart rate of 79, blood flow rate of 350 mL/min, dialysate flow rate of 600 mL/min. Exam: General appearance: PRESENT: no acute distress, cooperative, cachectic and emaciated Head exam: PRESENT: atraumatic, normocephalic Eye exam: PRESENT: conjunctiva pale, PERRLA. ABSENT: scleral icterus Neck exam: ABSENT: JVD Respiratory exam: PRESENT: Diminished breath sounds. ABSENT: crackles, rales, rhonchi, unlabored, wheezes Cardiovascular exam: PRESENT: Regular rate rhythm -+S1, +S2. ABSENT: diastolic murmur, systolic murmur GI/Abdominal exam: PRESENT: normal bowel sounds, soft. ABSENT: guarding, mass, tenderness Extremities exam: ABSENT: No edema Neurological exam: PRESENT: Somnolent but arousable. Skin exam: PRESENT: dry, warm, Results Laboratory Results: 08/27/17 04:54 08/27/17 04:54 08/27/17 08/27/17 04:54 04:54 WBC 9.1 RBC 2.87 L Hgb 8.6 L Hct 25.6 L MCV 89 MCH 29.9 MCHC 33.6 RDW 16.9 H Plt Count 187 Seg Neutrophils % 59.3 Lymphocytes % 24.7 Monocytes % 13.6 H Eosinophils % 1.7 Basophils % 0.7 Absolute Neutrophils 5.4 Absolute Lymphocytes 2.3 Absolute Monocytes 1.2 Absolute Eosinophils 0.2 Absolute Basophils 0.1 Sodium 140.0 Potassium 3.8 Chloride 101 Carbon Dioxide 28 Anion Gap 11 BUN 16 Creatinine 3.16 H Est GFR ( Amer) 24 L Est GFR (Non-Af Amer) 20 L Glucose 108 Calcium 7.6 L 08/21/17 13:35 Blood Blood Culture - Final NO GROWTH IN 5 DAYS 08/21/17 13:50 Blood Blood Culture - Final NO GROWTH IN 5 DAYS 08/22/17 04:10 Creatine Kinase < 20 L Impressions: Extremity Ultrasound 08/18/17 00:00 IMPRESSION: 1. Arm edema without abscess suggested. Chest X-Ray 08/18/17 13:21 IMPRESSION: Few Pennie lines with trace left pleural fluid. PermCath tip in the right atrium. Central Venous Line 08/26/17 00:00 IMPRESSION: Intra procedural imaging and fluoro Guidance Fluoroscopy 08/26/17 00:00 IMPRESSION: Intra procedural imaging and fluoro KUB X-Ray 08/27/17 00:00 IMPRESSION: Nonspecific ileus intestinal bowel gas pattern. Other findings as noted above Assessment & Plan - Diagnosis (1) ESRD on hemodialysis Is this a current diagnosis for this admission?: Yes Plan: We did dialysis today for 3 hours, using the patient's newly placed left IJ PermCath, with 3 potassium bath, blood flow rate of 350 mL per minute, dialysate flow rate of 600 mL per minute, ultrafiltration 0.5 up to 1 L as tolerated, no heparin and Procrit with 20,000 units during dialysis intravenously. Patient was monitored throughout dialysis treatment and will be encouraged to stay on his home treatment time. However the patient insisted to get off hemodialysis after about 2 hours and 50 minutes so treatment was terminated prematurely. Patient otherwise tolerated procedure well. (2) Vascular catheter infection Qualifiers: Encounter type: initial encounter Qualified Code(s): T82.7XXA - Infection and inflammatory reaction due to other cardiac and vascular devices, implants and grafts, initial encounter Is this a current diagnosis for this admission?: Yes Plan: Blood cultures have been positive for MRSA. Blood cultures has been negative more than 72 hours. Since patient has been stable , patient could be discharged back to alf. Antibiotics with either IV vancomycin or daptomycin can be continued on dialysis. The only issue is the patient has known to be noncompliant and if he does not come to dialysis treatment he will not get the antibiotics. Patient is continuously encouraged to be compliant to dialysis treatment in order to get his antibiotics. (3) Anemia in chronic kidney disease (CKD) Is this a current diagnosis for this admission?: Yes Plan: We will give Procrit on dialysis. Patient was given 20,000 units of Procrit today. (4) Hypertension Is this a current diagnosis for this admission?: Yes Plan: Continue blood pressure medications but hold them in a.m. before dialysis treatment. (5) Undernutrition Is this a current diagnosis for this admission?: Yes Plan: We will try Megace to increase his appetite. - Time Time with patient: 15-25 minutes
[2017-08-27] MEDS ORDERED: HYDRALAZINE HCL INJ/PF 20 MG/1 ML SDV IV PRN (19:23)
[2017-08-27] MEDS ORDERED: HYDRALAZINE HCL 50 MG TABLET PO ONE (20:00)
[2017-08-27] MEDS: MIRTAZAPINE 15 MG TABLET PO SCH (21:56)
[2017-08-27] MEDS: ISOSORBIDE MONONITRATE 30 MG TAB.ER.24H PO SCH (21:56)
[2017-08-28] MEDS: HYDRALAZINE HCL 50 MG TABLET PO SCH ×4 (00:21→17:16)
[2017-08-28] MEDS: ONDANSETRON 4 MG TAB.RAPDIS PO PRN (00:25)
[2017-08-28] MEDS: CLONIDINE HCL 0.1 MG TABLET PO SCH ×2 (06:20→17:16)
[2017-08-28] MEDS: LEVOTHYROXINE SODIUM 0.025 MG TABLET PO SCH (06:20)
[2017-08-28] MEDS: HEPARIN SOD (PORCINE) 5,000 UNIT/ML 1 ML SYRINGE SUBCUT SCH ×2 (06:20→17:16)
[2017-08-28] MEDS: LANSOPRAZOLE 30 MG TAB.RAP.DR PO SCH (06:21)
[2017-08-28] MEDS: MAGNESIUM OXIDE 400 MG TABLET PO SCH (09:57)
[2017-08-28] MEDS: ASCORBIC ACID 500 MG TABLET PO SCH ×2 (09:57→17:16)
[2017-08-28] MEDS: FOLIC ACID/VITAMIN B COMP W-C CAPSULE PO SCH (09:57)
[2017-08-28] MEDS: CALCIUM CARBONATE 250 MG/VITAMIN D3 125 UNIT TABLET PO SCH (09:57)
[2017-08-28] MEDS: FERROUS SULFATE 325 MG TABLET PO SCH ×2 (09:57→17:16)
[2017-08-28] MEDS: DOCUSATE SODIUM 100 MG CAPSULE PO SCH (09:57)
[2017-08-28] MEDS: METOPROLOL SUCCINATE 25 MG TAB.SR.24H PO SCH ×2 (09:57→22:13)
[2017-08-28] MEDS: LACTOBACILLUS ACIDOPHILUS 250 MG TAB PO SCH ×2 (09:57→17:16)
[2017-08-28] MEDS: MEGESTROL ACETATE SUSP 400 MG/10 ML UDCUP PO SCH (10:09)
[2017-08-28] MEDS: BISACODYL 10 MG SUPP.RECT PR SCH ×2 (10:09→22:14)
--- NOTE | 2017-08-28 11:05 | PDOC PROGRESS REPORT ---
Subjective Progress Note for:: 08/28/17 Subjective:: Somnolent this morning, felt to be due to Phenergan. Had iHD on 08/27. No reported events overnight. Reason For Visit: HYPERKALEMIA,INFECTED HD ACCESS Physical Exam Vital Signs: Temp Pulse Resp BP Pulse Ox 97.4 F 81 18 134/62 H 100 08/28/17 07:24 08/28/17 07:24 08/28/17 07:24 08/28/17 07:24 08/28/17 07:24 Intake & Output 08/27/17 08/28/17 08/29/17 06:59 06:59 06:59 Intake Total 307 23 Output Total 0 100 Balance 307 -77 Weight 53.4 kg 51.2 kg General appearance: PRESENT: no acute distress, thin, other - Sleeping Head exam: PRESENT: normocephalic Mouth exam: PRESENT: moist Neck exam: PRESENT: other - Left IJ catheter in place Respiratory exam: PRESENT: unlabored Cardiovascular exam: PRESENT: +S1, +S2 GI/Abdominal exam: PRESENT: soft. ABSENT: tenderness Neurological exam: PRESENT: other - Unable to assess as patient was sleeping Skin exam: PRESENT: dry Results Laboratory Results: 08/27/17 04:54 08/27/17 04:54 08/22/17 04:10 Creatine Kinase < 20 L Impressions: Extremity Ultrasound 08/18/17 00:00 IMPRESSION: 1. Arm edema without abscess suggested. Chest X-Ray 08/18/17 13:21 IMPRESSION: Few Pennie lines with trace left pleural fluid. PermCath tip in the right atrium. Central Venous Line 08/26/17 00:00 IMPRESSION: Intra procedural imaging and fluoro Guidance Fluoroscopy 08/26/17 00:00 IMPRESSION: Intra procedural imaging and fluoro KUB X-Ray 08/27/17 00:00 IMPRESSION: Nonspecific ileus intestinal bowel gas pattern. Other findings as noted above Assessment & Plan - Diagnosis (1) Vascular catheter infection Qualifiers: Encounter type: initial encounter Qualified Code(s): T82.7XXA - Infection and inflammatory reaction due to other cardiac and vascular devices, implants and grafts, initial encounter Is this a current diagnosis for this admission?: Yes Plan: Blood cultures were previously positive for MRSA. S/p removal of permcath for source control and with clearance of bacteremia demonstrated on 08/21 and rapid resolution of fever achieved while on vancomycin. Blood cultures from from 08/21 NGTD. Patient was previously on Daptomycin but was discontinued on 08/27. - Case reviewed by ID physician at [facility] who recommended TTE given MRSA bacteremia and at least 4 weeks of IV Vanc or IV Dapto depending on identification of vegetations - TTE ordered on 08/28 - Discussed with pharmacy and will restart Dapto (renally dosed) (2) ESRD on hemodialysis Is this a current diagnosis for this admission?: Yes Plan: Last HD was 08/27. Has left IJ PermCath in place. Nephrology following (3) Anemia in chronic kidney disease (CKD) Is this a current diagnosis for this admission?: Yes Plan: Stable, CTM (4) Constipation Qualifiers: Constipation type: unspecified constipation type Qualified Code(s): K59.00 - Constipation, unspecified Is this a current diagnosis for this admission?: Yes Plan: Remains constipated. Per RN, noted to have stool in the rectal vault. If unable to have BM, gave verbal permission to perform manual disimpaction. - Time Time Spent with patient: Less than 15 minutes Medications reviewed and adjusted accordingly: Yes Anticipated discharge: Home with Homehealth Within: within 48 hours
--- NOTE | 2017-08-28 17:15 | XCELERA REPORT ---
[address] [address] Transthoracic Echocardiogram Report Name: DANIEL MAGUIRE JR Age: 67 yrs Gender: Male : 1950 Patient Status: Inpatient Patient Location: [address] [place] [address] Study Date: 08/28/2017 02:49 PM Height: 69 in Weight: 112 lb BSA: 1.6 m2 Procedure: A two-dimensional transthoracic echocardiogram with color flow and Doppler was performed. Study Quality: Fair. Reason For Study: MRSA bactermia, r/o vegetations History: MRSA bactermia, r/o vegetations. Ordering Physician: WEST LAMBERT Performed By: Loyl Singh Interpretation Summary No gross vegetations seen.Recommend ERNIE if clinical suspicion for endocarditis is high. The left ventricle is normal in size. There is normal left ventricular wall thickness. LV EF is 65% Left ventricular systolic function is normal. Doppler measurements suggest normal left ventricular diastolic function -By tissue doppler. The left ventricular wall motion is normal. There is no thrombus. There is no ventricular septal defect visualized. The right atrium is normal. The left atrial size is normal. The interatrial septum is intact with no evidence for an atrial septal defect. There is no mitral valve stenosis. There is no evidence of mitral valve prolapse. There is a trace amount of mitral regurgitation There is no aortic valvular vegetation. There is no aortic valve stenosis There is no LVOT obstruction. No aortic regurgitation is present. There is no tricuspid stenosis. There is a trace amount of tricuspid regurgitation Right ventricular systolic pressure is normal. RVSP is 28 mm of Hg , with RA mean of 5. There is no pulmonic valvular stenosis. There is no pulmonic valvular regurgitation. There is no pericardial effusion. No gross vegetations seen.Recommend ERNIE if clinical suspicion for endocarditis is high. MMode/2D Measurements & Calculations RVDd: 3.1 cm LVIDd: 4.8 cm FS: 39.1 % Ao root diam: 2.7 cm IVSd: 1.0 cm LVIDs: 2.9 cm EDV(Teich): 109.9 ml LVPWd: 0.96 cm ESV(Teich): 33.6 ml Ao root area: 5.9 cm2 EF(Teich): 69.5 % LA dimension: 4.1 cm Doppler Measurements & Calculations MV E max eloisa: MV P1/2t max eloisa: Ao V2 max: LV V1 max P.5 cm/sec 74.0 cm/sec 181.6 cm/sec 5.2 mmHg MV A max eloisa: MV P1/2t: 66.9 msec Ao max PG: LV V1 max: 69.6 cm/sec 13.2 mmHg 113.5 cm/sec MV E/A: 1.1 MVA(P1/2t): 3.3 cm2 MV dec slope: 324.2 cm/sec2 MV dec time: 0.22 sec PA V2 max: TR max eloisa: 101.2 cm/sec 240.3 cm/sec PA max PG: TR max P.1 mmHg 4.1 mmHg Left Ventricle The left ventricle is normal in size. There is normal left ventricular wall thickness. LV EF is 65%. Left ventricular systolic function is normal. Doppler measurements suggest normal left ventricular diastolic function. - By tissue doppler. The left ventricular wall motion is normal. There is no thrombus. There is no ventricular septal defect visualized. Right Ventricle The right ventricle is normal in size and function. Atria The right atrium is normal. The left atrial size is normal. The interatrial septum is intact with no evidence for an atrial septal defect. Mitral Valve There is mild mitral annular calcification. There is no evidence of mitral valve prolapse. There is no vegetation seen on the mitral valve. There is no mitral valve stenosis. There is a trace amount of mitral regurgitation. Aortic Valve There is no aortic valvular vegetation. There is no aortic valve stenosis. There is no LVOT obstruction. No aortic regurgitation is present. Tricuspid Valve There is no tricuspid stenosis. There is a trace amount of tricuspid regurgitation. Right ventricular systolic pressure is normal. RVSP is 28 mm of Hg , with RA mean of 5. Pulmonic Valve There is no pulmonic valvular stenosis. There is no pulmonic valvular regurgitation. Great Vessels The aortic root is normal size. Effusions There is no pericardial effusion. : WEST LAMBERT > Sruthi Stovall
[2017-08-28] MEDS: DAPTOMYCIN 300 MG in NORMAL SALINE 50 ML IV SCH (17:17)
[2017-08-28] MEDS: MIRTAZAPINE 15 MG TABLET PO SCH (22:12)
[2017-08-28] MEDS: ISOSORBIDE MONONITRATE 30 MG TAB.ER.24H PO SCH (22:13)
[2017-08-29] MEDS: HYDRALAZINE HCL 50 MG TABLET PO SCH ×4 (00:57→18:05)
[2017-08-29] MEDS ORDERED: HEPARIN SOD (PORCINE) 1,000 UNIT/ML 10 ML VIAL IV PRN ×2 (05:00→15:08)
[2017-08-29] MEDS ORDERED: EPOETIN ALFA INJ 20000 UNIT/1 ML VIAL (RENAL) IV PRN (05:00)
[2017-08-29] MEDS ORDERED: NORMAL SALINE 1000 ML 1,000 ML IV PRN (05:00)
[2017-08-29 05:18] LABS: HEMATOCRIT 25.4 % (37.9-51.0); HEMOGLOBIN 8.6 g/dL (13.5-17.0); MEAN CORPUSCULAR HEMOGLOBIN 30.2 pg (27.0-33.4); MEAN CORPUSCULAR HGB CONC 33.7 g/dL (32.0-36.0); MEAN CORPUSCULAR VOLUME 90 fl (80-97); PLATELET COUNT 204 10^3/uL (150-450); RED BLOOD COUNT 2.84 10^6/uL (4.35-5.55); RED CELL DISTRIBUTION WIDTH 18.9 % (11.5-14.0); WHITE BLOOD COUNT 6.8 10^3/uL (4.0-10.5)
[2017-08-29 05:33] LABS: ANION GAP 11 (5-19); BLOOD UREA NITROGEN 21 mg/dL (7-20); CALCIUM 7.5 mg/dL (8.4-10.2); CARBON DIOXIDE 27 mmol/L (22-30); CHLORIDE 102 mmol/L (98-107); GLUCOSE 116 mg/dL (75-110); POTASSIUM 3.8 mmol/L (3.6-5.0); SODIUM 140.4 mmol/L (137-145)
[2017-08-29] MEDS: CLONIDINE HCL 0.1 MG TABLET PO SCH ×2 (06:23→18:05)
[2017-08-29] MEDS: LANSOPRAZOLE 30 MG TAB.RAP.DR PO SCH (06:24)
[2017-08-29] MEDS: HEPARIN SOD (PORCINE) 5,000 UNIT/ML 1 ML SYRINGE SUBCUT SCH ×2 (06:24→18:05)
[2017-08-29] MEDS: LEVOTHYROXINE SODIUM 0.025 MG TABLET PO SCH (06:24)
[2017-08-29] MEDS: ASCORBIC ACID 500 MG TABLET PO SCH ×2 (10:36→18:05)
[2017-08-29] MEDS: FOLIC ACID/VITAMIN B COMP W-C CAPSULE PO SCH (10:36)
[2017-08-29] MEDS: DOCUSATE SODIUM 100 MG CAPSULE PO SCH (10:37)
[2017-08-29] MEDS: FERROUS SULFATE 325 MG TABLET PO SCH ×2 (10:37→18:05)
[2017-08-29] MEDS: LACTOBACILLUS ACIDOPHILUS 250 MG TAB PO SCH ×2 (10:38→18:05)
[2017-08-29] MEDS: CALCIUM CARBONATE 250 MG/VITAMIN D3 125 UNIT TABLET PO SCH (10:38)
[2017-08-29] MEDS: MAGNESIUM OXIDE 400 MG TABLET PO SCH (10:47)
[2017-08-29] MEDS: MEGESTROL ACETATE SUSP 400 MG/10 ML UDCUP PO SCH (10:47)
[2017-08-29] MEDS: METOPROLOL SUCCINATE 25 MG TAB.SR.24H PO SCH ×2 (10:48→22:26)
[2017-08-29] MEDS: BISACODYL 10 MG SUPP.RECT PR SCH (10:48)
[2017-08-29] MEDS: ONDANSETRON HCL INJ/PF 4 MG/2 ML SDV IV PRN (13:35)
--- NOTE | 2017-08-29 14:37 | PDOC PROGRESS REPORT ---
Subjective Progress Note for:: 08/29/17 Subjective:: I am seeing the patient in dialysis at this time. He is somewhat lethargic but he also just received Zofran IV. He was noted to be lethargic so he was not sent back to the [facility] yesterday. Echocardiogram was done and it was read and interpreted as without any vegetations. Patient has been refusing dialysis for the last 2 treatments and we needed to call the daughter to convince him to come to treatment. Eventually after talking to his daughter he would agree anyway for dialysis. Last Friday he Is treatment down insisting to get off after 2 hours and 10 minutes approximately. Today when I saw the patient and woke him up I asked him if he really wants to continue with dialysis treatment. I repeated this question a couple of times and both times he said he would continue dialysis treatment. So we will continue to do dialysis while here in the hospital as long as he agrees to do dialysis. Patient will be monitored while on dialysis today. Reason For Visit: ESRD,INFECTED HD ACCESS Physical Exam Vital Signs: Temp Pulse Resp BP Pulse Ox 97.9 F 76 16 133/55 H 100 08/29/17 11:22 08/29/17 11:22 08/29/17 11:22 08/29/17 11:22 08/29/17 11:22 Intake & Output 08/28/17 08/29/17 08/30/17 06:59 06:59 06:59 Intake Total 23 213 Output Total 100 1 Balance -77 212 Weight 51.2 kg 51.3 kg Vitals during dialysis: Blood pressure 133/61, heart rate of 69, blood flow rate of 350 mL/min, dialysate flow rate of 800 mL/min. Exam: General appearance: PRESENT: no acute distress, cooperative, he is cachectic and emaciated, lethargic but arousable and answers questions appropriately Head exam: PRESENT: atraumatic, normocephalic Eye exam: PRESENT: conjunctiva pale, PERRLA. ABSENT: scleral icterus Neck exam: ABSENT: JVD Respiratory exam: PRESENT: Normal breath sounds. ABSENT: crackles, rales, rhonchi, unlabored, wheezes Cardiovascular exam: PRESENT: Regular rate rhythm -+S1, +S2. ABSENT: diastolic murmur, systolic murmur GI/Abdominal exam: PRESENT: normal bowel sounds, soft. ABSENT: guarding, mass, tenderness Extremities exam: ABSENT: No edema Neurological exam: PRESENT: alert, awake, oriented to person, place and time. Skin exam: PRESENT: dry, warm, Results Laboratory Results: 08/29/17 05:03 08/29/17 05:03 08/29/17 08/29/17 05:03 05:03 WBC 6.8 RBC 2.84 L Hgb 8.6 L Hct 25.4 L MCV 90 MCH 30.2 MCHC 33.7 RDW 18.9 H Plt Count 204 Sodium 140.4 Potassium 3.8 Chloride 102 Carbon Dioxide 27 Anion Gap 11 BUN 21 H Creatinine 3.04 H Est GFR ( Amer) 25 L Est GFR (Non-Af Amer) 21 L Glucose 116 H Calcium 7.5 L 08/22/17 04:10 Creatine Kinase < 20 L Impressions: Extremity Ultrasound 08/18/17 00:00 IMPRESSION: 1. Arm edema without abscess suggested. Chest X-Ray 08/18/17 13:21 IMPRESSION: Few Pennie lines with trace left pleural fluid. PermCath tip in the right atrium. Central Venous Line 08/26/17 00:00 IMPRESSION: Intra procedural imaging and fluoro Guidance Fluoroscopy 08/26/17 00:00 IMPRESSION: Intra procedural imaging and fluoro KUB X-Ray 08/27/17 00:00 IMPRESSION: Nonspecific ileus intestinal bowel gas pattern. Other findings as noted above Assessment & Plan - Diagnosis (1) ESRD on hemodialysis Is this a current diagnosis for this admission?: Yes Plan: We will do dialysis today for 2.5 hours, using the patient's left IJ PermCath, with 3 potassium bath, blood flow rate of 350 mL per minute, dialysate flow rate of 800 mL per minute, ultrafiltration 0-500 mL as tolerated, no heparin and Procrit with 20,000 units during dialysis intravenously. Patient will be monitored toward throughout dialysis treatment by our dialysis nurse. As mentioned above patient tells me that he wants to continue with dialysis treatment. I encouraged him to be more compliant and to come to treatment as prescribed. I also told him that if he gets discharged he will need to continue with antibiotics which he will get on dialysis so if he does not show up for treatment then he will not get his antibiotics. He indicated understanding. (2) Vascular catheter infection Qualifiers: Encounter type: initial encounter Qualified Code(s): T82.7XXA - Infection and inflammatory reaction due to other cardiac and vascular devices, implants and grafts, initial encounter Is this a current diagnosis for this admission?: Yes Plan: Blood cultures have been positive for MRSA. Blood cultures has been negative more than 72 hours. Since patient has been stable , patient could be discharged back to [facility]. Antibiotics with either IV vancomycin or daptomycin can be continued on dialysis. The only issue is the patient has known to be noncompliant and if he does not come to dialysis treatment he will not get the antibiotics. Patient is continuously encouraged to be compliant to dialysis treatment in order to get his antibiotics. (3) Anemia in chronic kidney disease (CKD) Is this a current diagnosis for this admission?: Yes Plan: We will give Procrit on dialysis. Patient was given 20,000 units of Procrit today. (4) Hypertension Is this a current diagnosis for this admission?: Yes Plan: Continue blood pressure medications but hold them in a.m. before dialysis treatment. (5) Undernutrition Is this a current diagnosis for this admission?: Yes Plan: We will try Megace to increase his appetite. - Notes Notes: From nephrology standpoint I think he can go back to the [facility] any time. He can continue his IV antibiotics for another 2 weeks as an outpatient to be given at [facility]. However this is dependent if he will show up on his dialysis treatment considering that he is known to be noncompliant with his that outpatient dialysis treatment. Discussed this with the hospitalist Dr. Alvarado. - Time Time with patient: 15-25 minutes
--- NOTE | 2017-08-29 16:50 | PDOC PROGRESS REPORT ---
Subjective Progress Note for:: 08/29/17 Subjective:: 67 yr old male with ESRD on HD who presented with a grossly infected HD permacath and was found to have MRSA bacteremia. Last blood cultures from 08/21/17- negative x 5 days. He is to complete 4 weeks of antibiotics on 09/17/17. TTE was negative for vegetations. has been lethargic for the past 3 days. FEcal impaction and constipation- partially resolved. Spoke with daughter and gave her an update. Plan for MRI brain to r/o CVA or septic emboli. Reason For Visit: HYPERKALEMIA,INFECTED HD ACCESS Physical Exam Vital Signs: Temp Pulse Resp BP Pulse Ox 97.9 F 76 16 133/55 H 100 08/29/17 11:22 08/29/17 11:22 08/29/17 11:22 08/29/17 11:22 08/29/17 11:22 Intake & Output 08/28/17 08/29/17 08/30/17 06:59 06:59 06:59 Intake Total 23 213 Output Total 100 1 Balance -77 212 Weight 51.2 kg 51.3 kg General appearance: PRESENT: disheveled, thin Head exam: PRESENT: normocephalic Ear exam: PRESENT: normal external ear exam Mouth exam: PRESENT: dry mucosa Neck exam: ABSENT: tracheal deviation Respiratory exam: PRESENT: symmetrical, unlabored. ABSENT: rhonchi Cardiovascular exam: PRESENT: RRR, other - L upper chest HD permacath GI/Abdominal exam: PRESENT: normal bowel sounds, soft. ABSENT: tenderness Rectal exam: PRESENT: deferred Results Laboratory Results: 08/29/17 05:03 08/29/17 05:03 08/29/17 08/29/17 05:03 05:03 WBC 6.8 RBC 2.84 L Hgb 8.6 L Hct 25.4 L MCV 90 MCH 30.2 MCHC 33.7 RDW 18.9 H Plt Count 204 Sodium 140.4 Potassium 3.8 Chloride 102 Carbon Dioxide 27 Anion Gap 11 BUN 21 H Creatinine 3.04 H Est GFR ( Amer) 25 L Est GFR (Non-Af Amer) 21 L Glucose 116 H Calcium 7.5 L 08/22/17 04:10 Creatine Kinase < 20 L Impressions: Extremity Ultrasound 08/18/17 00:00 IMPRESSION: 1. Arm edema without abscess suggested. Chest X-Ray 08/18/17 13:21 IMPRESSION: Few Pennie lines with trace left pleural fluid. PermCath tip in the right atrium. Central Venous Line 08/26/17 00:00 IMPRESSION: Intra procedural imaging and fluoro Guidance Fluoroscopy 08/26/17 00:00 IMPRESSION: Intra procedural imaging and fluoro KUB X-Ray 08/27/17 00:00 IMPRESSION: Nonspecific ileus intestinal bowel gas pattern. Other findings as noted above Assessment & Plan - Diagnosis (1) Vascular catheter infection Qualifiers: Encounter type: initial encounter Qualified Code(s): T82.7XXA - Infection and inflammatory reaction due to other cardiac and vascular devices, implants and grafts, initial encounter Is this a current diagnosis for this admission?: Yes Plan: Catheter replaced (2) Cellulitis of left elbow Is this a current diagnosis for this admission?: Yes Plan: Resolved US L arm showed no abscess. (3) ESRD on hemodialysis Is this a current diagnosis for this admission?: Yes Plan: HD per Nephrology service (4) Fever Qualifiers: Fever type: unspecified Qualified Code(s): R50.9 - Fever, unspecified Is this a current diagnosis for this admission?: Yes Plan: Resolved (5) Hyperkalemia Is this a current diagnosis for this admission?: Yes Plan: Resolved (6) Hypertension Is this a current diagnosis for this admission?: Yes Plan: On Imdur, Clonidine and Metoprolol (7) Undernutrition Is this a current diagnosis for this admission?: Yes Plan: Encourage PO intake (8) DVT prophylaxis Is this a current diagnosis for this admission?: Yes Plan: Subcutaneous Heparin (9) Tobacco dependence Is this a current diagnosis for this admission?: Yes Plan: Nicotine patch (10) Somnolence Is this a current diagnosis for this admission?: Yes Plan: Likely medication related. Hold all sedatives/ narcotics. MRI to r/o CVA (11) MRSA (methicillin resistant Staphylococcus aureus) septicemia Is this a current diagnosis for this admission?: Yes Plan: Daptomycin with HD till 09/17/17 (12) Constipation Qualifiers: Constipation type: unspecified constipation type Qualified Code(s): K59.00 - Constipation, unspecified Is this a current diagnosis for this admission?: Yes Plan: laxatives - Time Time Spent with patient: 35 or more minutes
[2017-08-29] MEDS: LACTULOSE SYRUP 20 GM/30 ML UDCUP PO SCH ×2 (18:05→22:26)
--- NOTE | 2017-08-29 21:11 | RADIOLOGY REPORT (SQ) ---
EXAM DESCRIPTION: MRI HEAD WITHOUT COMPLETED DATE/TIME: 08/29/2017 8:56 pm REASON FOR STUDY: r/o CVA COMPARISON: 06/06/[address] TECHNIQUE: Multiplanar imaging includes non-contrasted T1, T2, FLAIR, and diffusion with ADC map seq uences. Images stored on PACS. LIMITATIONS: None. FINDINGS: ANATOMY: No anomalies. Normal vascular flow voids. Pituitary fossa normal. CSF SPACES: Atrophy induced prominence of ventricles and CSF spaces. CEREBRUM: Extensive High signal intensity lesions scattered throughout the white matter on FLAIR imag ing with distribution suggesting micro-vascular ischemic changes. No evidence of hemorrhage, mass, o r extraaxial fluid collection. POSTERIOR FOSSA: No signal alteration. No hemorrhage. No edema, masses or mass effect. Internal ruben tory canals, cerebello-pontine angles, mastoids normal. DIFFUSION IMAGING: Negative for acute or sub-acute infarction. ORBITS: No masses. Globes normal. PARANASAL SINUSES: No fluid levels. Mucosa normal. OTHER: Bilateral mastoid effusions. IMPRESSION: Negative for acute or sub-acute infarction. EVIDENCE OF ACUTE STROKE: NO. TECHNICAL DOCUMENTATION: JOB ID: [id number] [place]-72 2010 [employer]- All Rights Reserved Reading location - IP/workstation name: [employer]
[2017-08-29] MEDS: ISOSORBIDE MONONITRATE 30 MG TAB.ER.24H PO SCH (22:26)
--- NOTE | 2017-08-29 23:26 | Progress Note ---
Provider Note Provider Note: Palliative Care Visit 08/29/17 4:35 PM Visit attempted again today. Patient sitting up in bed with supper tray in front of him, but he is not eating. Appears to be asleep. I called out his name and he awoke. Asked if we could talk but he said, no he didn't feel like talking. Unable to reach daughter by phone. Left my number for her to call me. Noted that again, daughter needed to be called to convince patent to have dialysis. Appears from my three attempted visits that Mr. Franz is sleeping most of the time, eating very little. Per notes, he is complying with HD only at request of daughter and is refusing some of his medications and treatments. He refuses to talk with me I will attempt to call daughter tomorrow. Will try again to speak with patient next week.
[2017-08-30] MEDS: HYDRALAZINE HCL 50 MG TABLET PO SCH ×4 (01:07→17:28)
[2017-08-30] MEDS: ACETAMINOPHEN 325 MG TABLET PO PRN (05:54)
[2017-08-30] MEDS: LANSOPRAZOLE 30 MG TAB.RAP.DR PO SCH (05:55)
[2017-08-30] MEDS: LEVOTHYROXINE SODIUM 0.025 MG TABLET PO SCH (05:55)
[2017-08-30] MEDS: CLONIDINE HCL 0.1 MG TABLET PO SCH ×2 (05:55→17:28)
[2017-08-30 05:59] LABS: ANION GAP 7 (5-19); BLOOD UREA NITROGEN 14 mg/dL (7-20); CALCIUM 7.4 mg/dL (8.4-10.2); CARBON DIOXIDE 31 mmol/L (22-30); CHLORIDE 104 mmol/L (98-107); GLUCOSE 85 mg/dL (75-110); POTASSIUM 3.3 mmol/L (3.6-5.0); SODIUM 141.8 mmol/L (137-145)
[2017-08-30] MEDS: HEPARIN SOD (PORCINE) 5,000 UNIT/ML 1 ML SYRINGE SUBCUT SCH ×2 (06:13→17:32)
[2017-08-30] MEDS ORDERED: POTASSIUM CHLORIDE 10 MEQ TABLET.SA PO ONE (07:39)
[2017-08-30] MEDS: MAGNESIUM OXIDE 400 MG TABLET PO SCH (08:56)
[2017-08-30] MEDS: METOPROLOL SUCCINATE 25 MG TAB.SR.24H PO SCH ×2 (08:56→22:45)
[2017-08-30] MEDS: FERROUS SULFATE 325 MG TABLET PO SCH ×2 (08:56→17:28)
[2017-08-30] MEDS: ASCORBIC ACID 500 MG TABLET PO SCH ×2 (08:56→17:28)
[2017-08-30] MEDS: LACTULOSE SYRUP 20 GM/30 ML UDCUP PO SCH ×4 (08:57→22:18)
[2017-08-30] MEDS: FOLIC ACID/VITAMIN B COMP W-C CAPSULE PO SCH (08:57)
[2017-08-30] MEDS: LACTOBACILLUS ACIDOPHILUS 250 MG TAB PO SCH ×2 (08:57→17:27)
[2017-08-30] MEDS: MEGESTROL ACETATE SUSP 400 MG/10 ML UDCUP PO SCH (08:58)
[2017-08-30] MEDS: CALCIUM CARBONATE 250 MG/VITAMIN D3 125 UNIT TABLET PO SCH (09:01)
[2017-08-30 13:54] LABS: ARTERIAL BLOOD BASE EXCESS 1.8 mmol/L; ARTERIAL BLOOD H2CO3 0.93 mmol/L (1.05-1.35); ARTERIAL BLOOD HCO3 24.2 mmol/L (20-26); ARTERIAL BLOOD O2 SATURATION 98.3 % (94-98); ARTERIAL BLOOD PCO2 30.8 mmHg (35-45); ARTERIAL BLOOD PH 7.51 (7.35-7.45); ARTERIAL BLOOD PO2 104.8 mmHg (80-100); ARTERIAL BLOOD TOTAL CO2 25.2 mmol/L (23-27)
[2017-08-30 14:06] LABS: ARTERIAL BLOOD FIO2 ROOM AIR
--- NOTE | 2017-08-30 15:28 | PDOC PROGRESS REPORT ---
Subjective Progress Note for:: 08/30/17 Subjective:: 67 yr old male with ESRD on HD who presented with a grossly infected HD permacath and was found to have MRSA bacteremia. Last blood cultures from 08/21/17- negative x 5 days. He is to complete 4 weeks of antibiotics on 09/17/17. TTE was negative for vegetations. Fecal impaction and constipation- resolved. MRI brain and ABG within normal limits. No complaints. Plan for discharge back to SNF in am. Reason For Visit: HYPERKALEMIA,INFECTED HD ACCESS Physical Exam Vital Signs: Temp Pulse Resp BP Pulse Ox 97.8 F 77 20 129/52 H 99 08/30/17 07:37 08/30/17 14:00 08/30/17 07:37 08/30/17 07:37 08/30/17 07:37 Intake & Output 08/29/17 08/30/17 08/31/17 06:59 06:59 06:59 Intake Total 213 247 120 Output Total 1 400 0 Balance 212 -153 120 Weight 51.3 kg 49.5 kg General appearance: PRESENT: no acute distress, disheveled, thin Head exam: PRESENT: normocephalic Eye exam: ABSENT: scleral icterus Ear exam: PRESENT: normal external ear exam Mouth exam: PRESENT: dry mucosa Respiratory exam: PRESENT: symmetrical, unlabored Cardiovascular exam: PRESENT: RRR GI/Abdominal exam: PRESENT: normal bowel sounds, soft. ABSENT: tenderness Rectal exam: PRESENT: deferred Gentrourinary exam: ABSENT: indwelling catheter Extremities exam: ABSENT: pedal edema Results Laboratory Results: 08/29/17 05:03 08/30/17 04:44 08/30/17 08/30/17 04:44 13:25 Carbonic Acid 0.93 L HCO3/H2CO3 Ratio 26:1 ABG pH 7.51 H ABG pCO2 30.8 L ABG pO2 104.8 H ABG HCO3 24.2 ABG O2 Saturation 98.3 H ABG Base Excess 1.8 FiO2 ROOM AIR Sodium 141.8 Potassium 3.3 L Chloride 104 Carbon Dioxide 31 H Anion Gap 7 BUN 14 Creatinine 2.01 H Est GFR ( Amer) 40 L Est GFR (Non-Af Amer) 33 L Glucose 85 Calcium 7.4 L Phosphorus 2.0 L Magnesium 2.3 08/22/17 04:10 Creatine Kinase < 20 L Impressions: Extremity Ultrasound 08/18/17 00:00 IMPRESSION: 1. Arm edema without abscess suggested. Chest X-Ray 08/18/17 13:21 IMPRESSION: Few Pennie lines with trace left pleural fluid. PermCath tip in the right atrium. Central Venous Line 08/26/17 00:00 IMPRESSION: Intra procedural imaging and fluoro Guidance Fluoroscopy 08/26/17 00:00 IMPRESSION: Intra procedural imaging and fluoro KUB X-Ray 08/27/17 00:00 IMPRESSION: Nonspecific ileus intestinal bowel gas pattern. Other findings as noted above Head MRI 08/29/17 00:00 IMPRESSION: Negative for acute or sub-acute infarction. EVIDENCE OF ACUTE STROKE: NO. Assessment & Plan - Diagnosis (1) Vascular catheter infection Qualifiers: Encounter type: initial encounter Qualified Code(s): T82.7XXA - Infection and inflammatory reaction due to other cardiac and vascular devices, implants and grafts, initial encounter Is this a current diagnosis for this admission?: Yes Plan: Catheter replaced (2) Cellulitis of left elbow Is this a current diagnosis for this admission?: Yes Plan: Resolved US L arm showed no abscess. (3) ESRD on hemodialysis Is this a current diagnosis for this admission?: Yes Plan: HD per Nephrology service (4) Fever Qualifiers: Fever type: unspecified Qualified Code(s): R50.9 - Fever, unspecified Is this a current diagnosis for this admission?: Yes Plan: Resolved (5) Hyperkalemia Is this a current diagnosis for this admission?: Yes Plan: Resolved (6) Hypertension Is this a current diagnosis for this admission?: Yes Plan: On Imdur, Clonidine and Metoprolol (7) Undernutrition Is this a current diagnosis for this admission?: Yes Plan: Encourage PO intake (8) DVT prophylaxis Is this a current diagnosis for this admission?: Yes Plan: Subcutaneous Heparin (9) Tobacco dependence Is this a current diagnosis for this admission?: Yes Plan: Nicotine patch (10) Somnolence Is this a current diagnosis for this admission?: Yes Plan: Likely medication related. Hold all sedatives/ narcotics. MRI and ABG WNL (11) MRSA (methicillin resistant Staphylococcus aureus) septicemia Is this a current diagnosis for this admission?: Yes Plan: Daptomycin with HD till 09/17/17 (12) Constipation Qualifiers: Constipation type: unspecified constipation type Qualified Code(s): K59.00 - Constipation, unspecified Is this a current diagnosis for this admission?: Yes Plan: laxatives - Time Time Spent with patient: 25-34 minutes
[2017-08-30] MEDS: DAPTOMYCIN 300 MG in NORMAL SALINE 50 ML IV SCH (17:27)
[2017-08-30] MEDS: ISOSORBIDE MONONITRATE 30 MG TAB.ER.24H PO SCH (22:45)
[2017-08-31] MEDS: HYDRALAZINE HCL 50 MG TABLET PO SCH ×3 (01:08→13:22)
[2017-08-31] MEDS: LEVOTHYROXINE SODIUM 0.025 MG TABLET PO SCH (06:20)
[2017-08-31] MEDS: HEPARIN SOD (PORCINE) 5,000 UNIT/ML 1 ML SYRINGE SUBCUT SCH (06:20)
[2017-08-31] MEDS: LANSOPRAZOLE 30 MG TAB.RAP.DR PO SCH (06:20)
[2017-08-31] MEDS: CLONIDINE HCL 0.1 MG TABLET PO SCH (06:21)
[2017-08-31 06:51] LABS: ANION GAP 6 (5-19); BLOOD UREA NITROGEN 17 mg/dL (7-20); CALCIUM 7.4 mg/dL (8.4-10.2); CARBON DIOXIDE 30 mmol/L (22-30); CHLORIDE 100 mmol/L (98-107); GLUCOSE 87 mg/dL (75-110); SODIUM 136.3 mmol/L (137-145)
[2017-08-31] MEDS: FERROUS SULFATE 325 MG TABLET PO SCH (09:14)
[2017-08-31] MEDS: LACTOBACILLUS ACIDOPHILUS 250 MG TAB PO SCH (09:14)
[2017-08-31] MEDS: FOLIC ACID/VITAMIN B COMP W-C CAPSULE PO SCH (09:15)
[2017-08-31] MEDS: CALCIUM CARBONATE 250 MG/VITAMIN D3 125 UNIT TABLET PO SCH (09:15)
[2017-08-31] MEDS: MAGNESIUM OXIDE 400 MG TABLET PO SCH (09:15)
[2017-08-31] MEDS: ASCORBIC ACID 500 MG TABLET PO SCH (09:26)
[2017-08-31] MEDS: ONDANSETRON 4 MG TAB.RAPDIS PO PRN (09:27)
[2017-08-31] MEDS: METOPROLOL SUCCINATE 25 MG TAB.SR.24H PO SCH (09:28)
[2017-08-31] MEDS: MEGESTROL ACETATE SUSP 400 MG/10 ML UDCUP PO SCH (09:29)
[2017-08-31] MEDS: LACTULOSE SYRUP 20 GM/30 ML UDCUP PO SCH ×2 (09:31→13:27)
[2017-08-31] MEDS: POTASSI CL 20 MEQ/50 ML RIDER 20 MEQ/50 ML RTUPB IV SCH ×2 (11:33→13:23)
--- NOTE | 2017-08-31 11:47 | PDOC TRANSFER SUMMARY ---
General - Admit/Disc Date/PCP Admission Date/Primary Care Provider: 08/18/17 16:28 FRANCINE FRAUSTO MD Discharge Date: 08/31/17 - Discharge Diagnosis (1) Vascular catheter infection Is this a current diagnosis for this admission?: Yes (2) Cellulitis of left elbow Is this a current diagnosis for this admission?: Yes (3) ESRD on hemodialysis Is this a current diagnosis for this admission?: Yes (4) Fever Is this a current diagnosis for this admission?: Yes (5) Hyperkalemia Is this a current diagnosis for this admission?: Yes (6) Hypertension Is this a current diagnosis for this admission?: Yes (7) Undernutrition Is this a current diagnosis for this admission?: Yes (8) DVT prophylaxis Is this a current diagnosis for this admission?: Yes (9) Tobacco dependence Is this a current diagnosis for this admission?: Yes (10) Somnolence Is this a current diagnosis for this admission?: Yes (11) MRSA (methicillin resistant Staphylococcus aureus) septicemia Is this a current diagnosis for this admission?: Yes (12) Constipation Is this a current diagnosis for this admission?: Yes (13) Hypokalemia Is this a current diagnosis for this admission?: Yes - Additional Information Resuscitation Status: Full Code Home Medications: Acetaminophen [Tylenol 325 mg Tablet] 650 mg PO Q6HP PRN 08/18/17 Amlodipine Besylate [Norvasc 10 mg Tablet] 10 mg PO DAILY 08/18/17 Calcium Carbonate/Vitamin D3 [Oyster Shell 500-Vit D3 200 Tb] 1 each PO DAILY Clonidine HCl [Catapres 0.2 mg Tablet] 0.2 mg PO Q12 08/18/17 Folic Acid/Vit B Complex and C [Nephro-Anthony Tablet] 0.8 mg PO DAILY 08/18/17 Isosorbide Mononitrate [Imdur 30 mg Tablet.er] 30 mg PO DAILY 08/18/17 Levothyroxine Sodium [Synthroid 0.025 mg Tablet] 25 mcg PO Q6AM 08/18/17 Metoprolol Succinate [Toprol Xl 25 mg Tab.sr] 25 mg PO Q12 08/18/17 Mirtazapine [Remeron 15 mg Tablet] 15 mg PO QHS 08/18/17 Oxycodone HCl [Oxy-Ir 5 mg Tablet] 5 mg PO Q6HP PRN 08/18/17 Pantoprazole Sodium [Protonix] 40 mg PO BID 08/18/17 Acetaminophen [Tylenol 325 mg Tablet] 650 mg PO Q4HP PRN tablet 08/31/17 Amlodipine Besylate [Norvasc 10 mg Tablet] 10 mg PO DAILY tablet 08/31/17 Ascorbic Acid [Vitamin C 500 mg Tablet] 500 mg PO BIDPCBS tablet 08/31/17 Daptomycin [Cubicin Inj 500 mg Vial] 300 mg IV Q2DAYS@1800 vial 08/31/17 Ferrous Sulfate [Feosol 325 mg Tablet] 325 mg PO BIDPCBS tablet 08/31/17 Ipratropium/Albuterol Sulfate [Duoneb 3 ml Ampul] 3 ml NEB RTQ2HP PRN vial.neb 08/31/17 Lactobacillus Acidophilus [Bacid 250 mg Tablet] 500 mg PO BID tab 08/31/17 Lactulose [Cephulac Syrup 20 gm/30 ml Udcup] 20 gm PO QID udc 08/31/17 Magnesium Oxide [Mag-Ox 400 mg Tablet] 400 mg PO DAILY tablet 08/31/17 Ondansetron [Zofran Odt 4 mg Tablet] 4 mg PO Q4HP PRN tab.rapdis 08/31/17 Polyethylene Glycol 3350 [Miralax Powder 17 gm/Packet] 17 gm PO Q12HP PRN powd.pack 08/31/17 History of Present Illness Admission Date/PCP: 08/18/17 16:28 FRANCINE FRAUSTO MD History of Present Illness: DANIEL MAGUIRE JR is a 67 year old male with ESRD on HD MWF- has been refusing HD for the past 2 and a half weeks per daughter CHF HTN GERD Cirrhosis Gout Depression Chronic L great toe tip gangrene He lives in a SNF. Healthcare POA is his daughter Lashell [phone]. He requests to be a full code. He had been refusing HD for the past 2 and a half weeks. He developed fever and was referred for admission. Noted to have hyperkalemia and infected R permacath. The director print yarn conditioner and surgeon yarn conditioner were notified. He received immediate dialysis followed by removal of the infected permacath. Blood cultures were ordered and Vancomycin and Cefepime were ordered by the ER provider. His L elbow and upper arm were swollen and red. His vascular surgeon is Dr. Aníbal Soler. Hospital Course Hospital Course: He had grossly infected HD permacath and was found to have MRSA bacteremia. The catheter was changed Last blood cultures from 08/21/17- negative x 5 days. He is to complete 4 weeks of antibiotics on 09/17/17. TTE was negative for vegetations. He developed fecal impaction and constipation- resolved. MRI brain and ABG within normal limits. He is stable for discharge back to [facility]. Physical Exam Vital Signs: Temp Pulse Resp BP Pulse Ox 97.5 F 64 18 131/57 H 90 L 08/31/17 04:17 08/31/17 04:17 08/31/17 04:17 08/31/17 04:17 08/31/17 04:17 Intake & Output 08/30/17 08/31/17 09/01/17 06:59 06:59 06:59 Intake Total 247 722 Output Total 400 0 Balance -153 722 Weight 49.5 kg 52.7 kg General appearance: PRESENT: disheveled, thin Respiratory exam: PRESENT: symmetrical, unlabored Results Laboratory Results: 08/29/17 05:03 08/31/17 05:14 08/30/17 08/31/17 13:25 05:14 Carbonic Acid 0.93 L HCO3/H2CO3 Ratio 26:1 ABG pH 7.51 H ABG pCO2 30.8 L ABG pO2 104.8 H ABG HCO3 24.2 ABG O2 Saturation 98.3 H ABG Base Excess 1.8 FiO2 ROOM AIR Sodium 136.3 L Potassium 3.0 L* Chloride 100 Carbon Dioxide 30 Anion Gap 6 BUN 17 Creatinine 2.66 H Est GFR ( Amer) 29 L Est GFR (Non-Af Amer) 24 L Glucose 87 Calcium 7.4 L 08/22/17 04:10 Creatine Kinase < 20 L Impressions: Extremity Ultrasound 08/18/17 00:00 IMPRESSION: 1. Arm edema without abscess suggested. Chest X-Ray 08/18/17 13:21 IMPRESSION: Few Pennie lines with trace left pleural fluid. PermCath tip in the right atrium. Central Venous Line 08/26/17 00:00 IMPRESSION: Intra procedural imaging and fluoro Guidance Fluoroscopy 08/26/17 00:00 IMPRESSION: Intra procedural imaging and fluoro KUB X-Ray 08/27/17 00:00 IMPRESSION: Nonspecific ileus intestinal bowel gas pattern. Other findings as noted above Head MRI 08/29/17 00:00 IMPRESSION: Negative for acute or sub-acute infarction. EVIDENCE OF ACUTE STROKE: NO. Transfer Plan - Time Spent with Patient Time spent with patient: Greater than 30 Minutes Qualifiers - * PATIENT BEING DISCHARGED WITH ANY OF THE FOLLOWING DIAGNOSIS: No
[2017-08-31] MEDS ORDERED: AMLODIPINE BESYLATE 10 MG TABLET PO SCH (12:00)
[2017-08-31] MEDS ORDERED: POTASSIUM CHLORIDE 10 MEQ TABLET.SA PO ONE (12:00)
[2017-08-31 16:17] VITALS: BP 110/47
== END 2017-08-31 16:23 | DRG 314 ==
LOC: ER 12:48 → EH 16:28 → 3W 22:23
PROVIDERS: ADMIT Internal Medicine; ATTEND Internal Medicine
PROC: 05PYX3Z Removal of Infusion Device from Upper Vein, External Approach (ICD-10-PCS; principal; 2017-08-18)
PROC: 5A1D70Z Performance of Urinary Filtration, Intermittent, Less than 6 Hours Per Day (ICD-10-PCS; 2017-08-18)
PROC: 0JHP3XZ Insertion of Tunneled Vascular Access Device into Left Lower Leg Subcutaneous Tissue and Fascia, Percutaneous Approach (ICD-10-PCS; 2017-08-26)
PROC: 02H633Z Insertion of Infusion Device into Right Atrium, Percutaneous Approach (ICD-10-PCS; 2017-08-26)
PROC: B51BYZA Fluoroscopy of Right Lower Extremity Veins using Other Contrast, Guidance (ICD-10-PCS; 2017-08-26)
DX: T82.7XXA Infection and inflammatory reaction due to other cardiac and vascular devices, implants and grafts, initial encounter (principal); A41.02 Sepsis due to Methicillin resistant Staphylococcus aureus; N18.6 End stage renal disease; G93.40 Encephalopathy, unspecified; I13.2 Hypertensive heart and chronic kidney disease with heart failure and with stage 5 chronic kidney disease, or end stage renal disease; E44.0 Moderate protein-calorie malnutrition; I50.32 Chronic diastolic (congestive) heart failure; L03.114 Cellulitis of left upper limb; M86.672 Other chronic osteomyelitis, left ankle and foot; Z68.1 Body mass index [BMI] 19.9 or less, adult; E87.5 Hyperkalemia; K74.60 Unspecified cirrhosis of liver; D63.1 Anemia in chronic kidney disease; K21.9 Gastro-esophageal reflux disease without esophagitis; K59.00 Constipation, unspecified; L89.629 Pressure ulcer of left heel, unspecified stage; L89.619 Pressure ulcer of right heel, unspecified stage; L89.899 Pressure ulcer of other site, unspecified stage; M10.9 Gout, unspecified; F41.1 Generalized anxiety disorder; F17.210 Nicotine dependence, cigarettes, uncomplicated; Z99.2 Dependence on renal dialysis; Z91.15 Patient's noncompliance with renal dialysis
CPT/HCPCS: 36415; 36556; 36558; 70551; 71045; 74018; 76881; 76937; 77001; 80048; 80053; 80069; 82140; 82550; 82803; 82962; 83540; 83605; 83735; 84100; 84443; 85025; 85027; 85610; 86850; 86900; 86901; 87040; 87070; 87077; 87186; 87205; 93005; 93010; 93306; 96365; 99285; C1713; C1752; G0257; J0360; J0690; J0692; J0878; J1644; J1815; J2250; J2405; J2550; J2704; J3010; J3370; J3475; J3480; J3490; J7050; J7060; Q4081; S0119